=== PATIENT | male | born 1965 | race Caucasian/White ===

== ENCOUNTER 2016-06-13 12:50 | Inpatient (IN) | payer SELFPAY ==
[~2016-06-13] VITALS: Ht 182.9 cm; Wt 65.9 kg
[2016-06-13] VITALS (11 sets, daily range): BP systolic 109–142; BP diastolic 68–81
--- NOTE | 2016-06-13 13:22 | ED.ADGEN ---
Adult General Chief Complaint Chief Complaint: WEAKNESS/GENERALIZED HPI HPI Patient is a 50 year old man, history of Marfan syndrome, who presents to the emergency department with a complaint of generalized malaise for the past several weeks, with headaches, mild confusion, a roughly 20 pound weight loss. Patient denies any chest pain or shortness of breath, any nausea or vomiting, any focal weakness in this or tingling, is complaining of occasional feels a mild confusion, decreased appetite, and of a frontal headache. No injuries, no neck pain, no medication changes or exposures. Denies any fevers. Patient has a mitral valve replacement, and takes Coumadin. Patient with onset of hiccups, and nausea in the ED, which she states is just developed. No diarrhea, no urinary complaints. Denies any drugs, alcohol or cigarettes. No travel or surgery. Review of Systems Review of Systems Constitutional: Denies fever or chills. [] Generalized malaise 2 weeks. Weight loss. Eyes: Denies change in visual acuity. [] HENT: Denies nasal congestion or sore throat. [] Respiratory: Denies cough or shortness of breath. [] Cardiovascular: Denies chest pain or edema. [] GI: Denies abdominal pain, nausea, vomiting, bloody stools or diarrhea. [] : Denies dysuria. [] Musculoskeletal: Denies back pain or joint pain. [] Integument: Denies rash. [] Neurologic: Denies focal weakness or sensory changes. Headache. No injury. Endocrine: Denies polyuria or polydipsia. [] Lymphatic: Denies swollen glands. [] Psychiatric: Denies depression or anxiety. [] Current Medications Current Medications Current Medications Medications (Trade) Dose Ordered Sig/Denny Start Time Stop Time Status Last Admin Dose Admin Sodium Chloride (Iv Sodium Chloride 0.9% 1000ml Bag) 1,000 ml @ 100 mls/hr 1X ONCE 06/13/16 13:45 06/13/16 23:44 06/13/16 13:45 100 MLS/HR Allergies Allergies Allergies Coded Allergies Type Severity Reaction Last Updated Verified No Known Drug Allergies 06/13/16 No Physical Exam Physical Exam Constitutional: Well developed, thin, no acute distress, ill in appearance. [] HENT: Normocephalic, atraumatic, bilateral external ears normal, oropharynx moist, no oral exudates, nose normal. [] Eyes: PERRLA, EOMI, conjunctiva normal, no discharge. [] Neck: Normal range of motion, no tenderness, supple, no stridor. [] Cardiovascular:Heart rate regular rhythm, no murmur [] Lungs & Thorax: Diminished breath sounds throughout, no wheezing, rhonchi or rales appreciated, no external signs of injury or lesions identified.] Abdomen: Bowel sounds normal, soft, no tenderness, no rebound, rigidity, no guarding, no masses, no pulsatile masses. [] Skin: Warm, dry, no erythema, no rash. [] Back: No tenderness, no CVA tenderness. [] Extremities: No tenderness, no cyanosis, no clubbing, ROM intact, no edema. Negative Homans sign. [] Neurologic: Alert and oriented X 3, normal motor function, normal sensory function, no focal deficits noted. [] Psychologic: Affect normal, judgement normal, mood normal. [] Current Patient Data Vital Signs Vital Signs Date Time Temp Pulse Resp B/P Pulse Ox O2 Delivery O2 Flow Rate FiO2 06/13/16 13:10 98.2 67 18 137/85 97 Room Air 98.2 Lab Values Laboratory Tests Test 06/13/16 13:30 06/13/16 13:45 06/13/16 14:05 White Blood Count 8.1x10^3/uL (4.0-11.0) Red Blood Count 5.22x10^6/uL (4.30-5.70) Hemoglobin 15.9g/dL (13.0-17.5) Hematocrit 46.8% (39.0-53.0) Mean Corpuscular Volume 90fL (79-100) Mean Corpuscular Hemoglobin 31pg (25-35) Mean Corpuscular Hemoglobin Concent 34g/dL (31-37) Red Cell Distribution Width 13.4% (11.5-14.5) Platelet Count 173x10^3/uL (140-400) Neutrophils (%) (Auto) 77% (31-73) H Lymphocytes (%) (Auto) 11% (24-48) L Monocytes (%) (Auto) 10% (0-9) H Eosinophils (%) (Auto) 1% (0-3) Basophils (%) (Auto) 1% (0-3) Neutrophils # (Auto) 6.3x10^3uL (1.8-7.7) Lymphocytes # (Auto) 0.9x10^3/uL (1.0-4.8) L Monocytes # (Auto) 0.8x10^3/uL (0.0-1.1) Eosinophils # (Auto) 0.1x10^3/uL (0.0-0.7) Basophils # (Auto) 0.0x10^3/uL (0.0-0.2) Prothrombin Time 41.1SEC (11.7-14.0) H Prothrombin Time INR 4.6 (0.8-1.1) *H PTT 71SEC (24-38) H Sodium Level 142mmol/L (136-145) Potassium Level 3.6mmol/L (3.5-5.1) Chloride Level 103mmol/L (98-107) Carbon Dioxide Level 34mmol/L (21-32) H Anion Gap 5 (6-14) L Blood Urea Nitrogen 24mg/dL (8-26) Creatinine 1.0mg/dL (0.7-1.3) Estimated GFR (Cockcroft-Gault) 79.1 BUN/Creatinine Ratio 24 (6-20) H Glucose Level 112mg/dL (70-99) H Lactic Acid Level 1.2mmol/L (0.4-2.0) Calcium Level 9.2mg/dL (8.5-10.1) Total Bilirubin 0.5mg/dL (0.2-1.0) Aspartate Amino Transferase (AST) 32U/L (15-37) Alanine Aminotransferase (ALT) 28U/L (16-63) Alkaline Phosphatase 58U/L (46-116) Troponin I Quantitative < 0.017ng/mL (0.000-0.055) EM-Ljk-E-Type Natriuretic Peptide 119pg/mL (0-124) Total Protein 8.1g/dL (6.4-8.2) Albumin 3.8g/dL (3.4-5.0) Albumin/Globulin Ratio 0.9 (1.0-1.7) L Influenza Type A Antigen Negative (NEGATIVE) Influenza Type B Antigen Negative (NEGATIVE) Urine Collection Type Unknown Urine Color Nicole Urine Clarity Hazy Urine pH 5.5 Urine Specific [place] >=1.030 Urine Protein Negativemg/dL (NEG-TRACE) Urine Glucose (UA) Negativemg/dL (NEG) Urine Ketones (Stick) Tracemg/dL (NEG) Urine Blood Small (NEG) Urine Nitrite Negative (NEG) Urine Bilirubin Small (NEG) Urine Urobilinogen Dipstick 0.2mg/dL (0.2 mg/dL) Urine Leukocyte Esterase Trace (NEG) Urine RBC Occ/HPF (0-2) Urine WBC 1-4/HPF (0-4) Urine Bacteria 0/HPF (0-FEW) Urine Mucus Marked/LPF Urine Sperm Present/HPF Urine Opiates Screen Neg (NEG) Urine Methadone Screen Neg (NEG) Urine Barbiturates Neg (NEG) Urine Phencyclidine Screen Neg (NEG) Urine Amphetamine/Methamphetamine Neg (NEG) Urine Benzodiazepines Screen Neg (NEG) Urine Cocaine Screen Neg (NEG) Urine Cannabinoids Screen Neg (NEG) Urine Ethyl Alcohol Neg (NEG) Laboratory Tests 06/13/16 13:30 Laboratory Tests 06/13/16 13:30 EKG EKG EC: Sinus rhythm, heart rate 65 beats/minute, upright axis, QTC of 423, WV of 140, QRS of 82, no ST elevations or depressions, mild baseline artifact noted. As interpreted by me. Radiology/Procedures Radiology/Procedures []CENTER [address] [place] [id number] IMAGING REPORT Signed PATIENT: ARPAN CAMPOVERDE ACCOUNT: [id number] : 1965 LOCATION: ER AGE: 50 SEX: M EXAM STATUS: REG ER ORD. PHYSICIAN: ROBE MONTES DO REASON: nausea PROCEDURE: ABDOMEN SUPINE & UPRIGHT Supine and upright abdomen. History: Nausea Supine and upright views were taken of the abdomen. There is no free air on the upright view. There are no abnormal air-fluid levels. Lung bases are clear. There are densities suggesting tablets in the colon. There are no abnormal calcifications. Osseous structures are unremarkable. Impression: 1. No bowel obstruction or acute finding in the abdomen. DICTATED and SIGNED BY: KAT RATLIFF MD DATE: 06/13/16 1411 CC: NEREIDA RUST; ROBE MONTES DO ~ Impressions: [facility] [address] [place] [address] IMAGING REPORT Signed PATIENT: ARPAN CAMPOVERDE ACCOUNT: [id number] : 1965 LOCATION: ER AGE: 50 SEX: M EXAM STATUS: REG ER ORD. PHYSICIAN: ROBE MONTES DO REASON: confusion/REED PROCEDURE: HEAD WO CONTRAST One or more of the following individualized dose reduction techniques were utilized for this examination: 1. Automated exposure control 2. Adjustment of the mA and/or kV according to patient size 3. Use of iterative reconstruction technique CT brain without contrast History: Confusion, headaches CT scan of the brain was done without contrast. There is no old study for comparison. There is a acute subdural hematoma on the right side seen in the frontal region. There is an acute on chronic subdural hematoma on the left in the frontoparietal region. There is mass effect without shift of the midline. Sinuses are clear. Impression: 1. Bilateral subdural hematomas Emergency room physician was called and notified of the findings at 2:[address] [id number] IMAGING REPORT Signed PATIENT: ARPAN CAMPOVERDE ACCOUNT: [id number] : 1965 LOCATION: ER AGE: 50 SEX: M EXAM STATUS: REG ER ORD. PHYSICIAN: ROBE MONTES DO REASON: Weakness PROCEDURE: PORTABLE CHEST 1V Portable AP chest. History: Weakness AP view was taken of the chest. Lungs are clear. Heart is normal in size with evidence of previous valve surgery. There is no effusion. Impression: 1. No acute infiltrates. DICTATED and SIGNED BY: KAT RATLIFF MD DATE: 06/13/16 1352 CC: NEREIDA RUST; ROBE MONTES DO ~ DICTATED and SIGNED BY: KAT RATLIFF MD DATE: 06/13/16 1431 CC: NEREIDA RUST; ROBE MONTES DO ~ Course & Med Decision Making Course & Med Decision Making Pertinent Labs and Imaging studies reviewed. (See chart for details) Patient's CT of the head reveals bilateral subdural hematomas. Patient is on Coumadin for his mitral valve replacement, INR is supratherapeutic at 4.6. I did speak with Dr. Emerson neurosurgery, there is no surgical intervention at this time, he recommends the patient be admitted to the ICU for close monitoring and blood pressure control. Patient's blood pressure at this time is 135/87, we'll aim for systolic less than 150, at this time no intervention is required. We'll reverse the patient using FFP and 10 units of vitamin K orally. I spoke with Dr. Mcmanus cardiology, who will follow the patient regarding the cardiac concerns, no other recommendations aside from above at this time. I discussed with patient and family at bedside the CT findings, and the, continuation regarding the patient's anticoagulation status and his heart valve replacement. Additional information will be requested from and [facility]'s. Patient and family at bedside are in agreement voiced understanding with the serious nature of the condition, and the plan for admission to the the ICU and monitoring and management with consultants as stated. Findings as above discussed with Dr. Colby of internal medicine, patient accepted to her service as a full avelar the ICU with plan as above. Patient remained stable and comfortable during his ED course, awaiting transfer to the ICU. Dragon Disclaimer Dragon Disclaimer This electronic medical record was generated, in whole or in part, using a voice recognition dictation system. Critical Care Time Critical care time was 20 minutes exclusive of procedures. Departure Impression: Primary Impression: Subdural hematoma Additional Impression: Supratherapeutic INR Disposition: ADMITTED INPATIENT Condition: STABLE Problem Qualifiers ROBE MONTES DO Jun 13, 2016 13:22
[2016-06-13] MEDS ORDERED: IV NORMAL SALINE 1000ML BAG 1,000 ML IV ONE (13:45)
[2016-06-13 13:47] LABS: BASO % 1 % (0-3); EOS % 1 % (0-3); HEMATOCRIT 46.8 % (39.0-53.0); HEMOGLOBIN 15.9 g/dL (13.0-17.5); LYMPH # 0.9 x10^3/uL (1.0-4.8); LYMPH % 11 % (24-48); MEAN CORPUSCULAR HEMOGLOBIN 31 pg (25-35); MEAN CORPUSCULAR HGB CONC 34 g/dL (31-37); MEAN CORPUSCULAR VOLUME 90 fL (79-100); MONO % 10 % (0-9); NEUT % 77 % (31-73); PLATELET COUNT 173 x10^3/uL (140-400); RED BLOOD COUNT 5.22 x10^6/uL (4.30-5.70); RED CELL DISTRIBUTION WIDTH 13.4 % (11.5-14.5); WHITE BLOOD COUNT 8.1 x10^3/uL (4.0-11.0)
[2016-06-13 13:55] LABS: CALCIUM 9.2 mg/dL (8.5-10.1); GFR 79.1; POTASSIUM 3.6 mmol/L (3.5-5.1)
--- NOTE | 2016-06-13 13:55 | RAD ---
Portable AP chest. History: Weakness AP view was taken of the chest. Lungs are clear. Heart is normal in size with evidence of previous valve surgery. There is no effusion. Impression: 1. No acute infiltrates.
[2016-06-13 13:58] LABS: PROTHROMBIN TIME PATIENT 41.1 SEC (11.7-14.0)
[2016-06-13 14:02] LABS: INR 4.6 (0.8-1.1)
[2016-06-13 14:10] LABS: ALBUMIN 3.8 g/dL (3.4-5.0); ALBUMIN/GLOBULIN RATIO 0.9 (1.0-1.7); TOTAL BILIRUBIN 0.5 mg/dL (0.2-1.0); TOTAL PROTEIN 8.1 g/dL (6.4-8.2)
[2016-06-13 14:19] LABS: BILIRUBIN,URINE SMALL (NEG); GLUCOSE,URINE NEGATIVE (NEG); NITRITE,URINE NEGATIVE (NEG); PH,URINE 5.5; PROTEIN,URINE NEGATIVE (NEG-TRACE); UROBILINOGEN,URINE 0.2 mg/dL (0.2 mg/dL)
--- NOTE | 2016-06-13 14:19 | RAD ---
Supine and upright abdomen. History: Nausea Supine and upright views were taken of the abdomen. There is no free air on the upright view. There are no abnormal air-fluid levels. Lung bases are clear. There are densities suggesting tablets in the colon. There are no abnormal calcifications. Osseous structures are unremarkable. Impression: 1. No bowel obstruction or acute finding in the abdomen.
[2016-06-13 14:21] LABS: OBC FLU VALID
[2016-06-13 14:27] LABS: BACTERIA,URINE 0 /HPF (0-FEW); RBC,URINE OCC /HPF (0-2); SPERM,URINE PRESENT /HPF
[2016-06-13 14:30] LABS: BARBITURATES NEG (NEG); BENZODIAZEPINES NEG (NEG); CANNABINOIDS NEG (NEG); COCAINE NEG (NEG); METHADONE NEG (NEG); OPIATES NEG (NEG); PHENCYCLIDINE NEG (NEG)
[2016-06-13 14:33] LABS: ETHANOL, URINE NEG (NEG)
--- NOTE | 2016-06-13 14:36 | RAD ---
One or more of the following individualized dose reduction techniques were utilized for this examination: 1. Automated exposure control 2. Adjustment of the mA and/or kV according to patient size 3. Use of iterative reconstruction technique CT brain without contrast History: Confusion, headaches CT scan of the brain was done without contrast. There is no old study for comparison. There is a acute subdural hematoma on the right side seen in the frontal region. There is an acute on chronic subdural hematoma on the left in the frontoparietal region. There is mass effect without shift of the midline. Sinuses are clear. Impression: 1. Bilateral subdural hematomas Emergency room physician was called and notified of the findings at 2:33 PM
[2016-06-13] MEDS ORDERED: PHYTONADIONE 5 MG TABLET PO ONE (15:00)
--- NOTE | 2016-06-13 15:16 | EKG ---
[facility] [address] [place] [address] Test Date: 2016-06-13 Test Time: 13:02:27 Pat Name: ARPAN CAMPOVERDE Department: Room: Gender: M Distribution Associate: : 1965 Requested By: ROBE MONTES Order Number: [id number] Reading MD: Maria A Valente Measurements Intervals [place] Rate: 65 P: 45 [place]: 140 QRS: 1 QRSD: 82 T: 68 QT: 402 QTc: 423 Interpretive Statements SINUS RHYTHM NORMAL EKG RI6.01 Unconfirmed report No previous ECG available for comparison Electronically Signed On 06-17-2016 23:09:46 HISTOLOGIC AIDE by Maria A Valente
[2016-06-13] MEDS ORDERED: ONDANSETRON PF 4 MG/2 ML VIAL. IV PRN (16:15)
[2016-06-13] MEDS ORDERED: METO25TA9 PO (16:42)
[2016-06-13] MEDS ORDERED: WARF5TAB PO (16:42)
[2016-06-13] MEDS: OXYCODONE/APAP 5/325 TABLET. PO PRN ×2 (18:09→23:49)
[2016-06-13] MEDS ORDERED: MORPHINE SULFATE 2 MG/ML DISP.SYRIN. IV ONE (18:30)
[2016-06-13] MEDS ORDERED: LEVETIRACETAM 500 MG in IV NORMAL SALINE 100ML 100 ML IV PRN (19:45)
--- NOTE | 2016-06-13 20:42 | HP ---
ADMIT DATE: 06/13/2016 CHIEF COMPLAINT: Subdural hematoma. HISTORY OF PRESENT ILLNESS: The patient is a 50-year-old gentleman with Marfan syndrome, status post AVR as well as MVR and mesh placement in the ascending aorta who presented to the hospital with general malaise, worsening headaches and mild confusion. He was evaluated in the emergency room and CT reveals subdural hematoma in the right frontal region. This was considered acute. A second [id number] subdural hematoma on the left frontoparietal region was also noted. Mass effect without shift of the midline. Of note, patient is on Coumadin for his valve replacements. INR was therapeutic at 2.8. PAST MEDICAL HISTORY: Marfan's status post AVR in [address] 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 FAMILY HISTORY: Brother does not have Marfan's, but positive for diabetes. SOCIAL HISTORY: He currently lives with his brother, not working. No toxic habits. ALLERGIES: No known drug allergies. MEDICATIONS: MAR reconciled with home medications. REVIEW OF SYSTEMS: The patient is quite confused with significant memory deficits as well. He complains of headache, bitemporal. Denies any other focal symptoms in rest of organ system review. PHYSICAL EXAMINATION: VITAL SIGNS: Show a blood pressure of 135/76, heart rate of 74, respiratory rate at 18. He is afebrile, satting 99% on room air. GENERAL: This is a malnourished 50-year-old gentleman, awake, alert, confused, in no acute distress. HEENT: Shows clouded eye on the left; right with oblong pupil status post surgery. NECK: Supple without any lymphadenopathy. LUNGS: Fairly clear. HEART: Regular rate and rhythm. Murmurs not appreciated. ABDOMEN: Positive bowel sounds, soft, nontender. EXTREMITIES: Show no edema. LABORATORY DATA: CBC from today shows a WBC of 8.1, hemoglobin 15.9, platelets of 173. Chemistries with a BUN and creatinine of 24 and 1. Electrolytes within normal limits. LFTs normal. Initial troponin negative. Lactate at 1.2, albumin 3.8. Tox screen is negative. Coags with an INR of 4.6, PTT of 71. Serology for flu is negative. RADIOGRAPHIC STUDIES: Chest x-ray is clear. CT of head: See above. ASSESSMENT AND PLAN: The patient is a 50-year-old Marfan's patient who presents with subdural hematomas without trauma. He relates that he had cold symptoms for the past week fairly severely, has been coughing but has had no head injuries. His Coumadin is elevated at this time. With bilateral subdural hematomas, we will hold Coumadin, reverse with FFP as well as vitamin K. Cardiology will be consulted for management of valve and potential anticoagulation down the road. Neurosurgery has been consulted by ER as well. Dr. Emerson will follow. Repeat CT of the brain is ordered for AM. The patient has borderline hypertension, managed on beta-blockers. We will continue for the time being. Neuro checks will be instituted q. 4 hours. JOSSELYN MORRIS MD DR: UR/nts JOB#: [id number] / [id number] NEREIDA Giles
[2016-06-13 23:26] LABS: INR 2.5 (0.8-1.1); PROTHROMBIN TIME PATIENT 25.2 SEC (11.7-14.0)
[2016-06-14] VITALS (24 sets, daily range): BP systolic 95–142; BP diastolic 49–90
[2016-06-14] MEDS: IV NORMAL SALINE 1000ML BAG 1,000 ML IV SCH ×3 (02:10→12:10)
[2016-06-14] MEDS: OXYCODONE/APAP 5/325 TABLET. PO PRN (08:32)
[2016-06-14] MEDS: METOPROLOL SUCC 24HR ER 25 MG TAB.ER.24H. PO SCH (08:32)
[2016-06-14 08:47] LABS: BASO # 0.1 x10^3/uL (0.0-0.2); BASO % 1 % (0-3); EOS % 2 % (0-3); HEMATOCRIT 40.2 % (39.0-53.0); HEMOGLOBIN 13.4 g/dL (13.0-17.5); LYMPH # 0.8 x10^3/uL (1.0-4.8); LYMPH % 11 % (24-48); MEAN CORPUSCULAR HEMOGLOBIN 30 pg (25-35); MEAN CORPUSCULAR HGB CONC 33 g/dL (31-37); MEAN CORPUSCULAR VOLUME 90 fL (79-100); MONO % 9 % (0-9); NEUT % 76 % (31-73); PLATELET COUNT 157 x10^3/uL (140-400); RED BLOOD COUNT 4.44 x10^6/uL (4.30-5.70); RED CELL DISTRIBUTION WIDTH 13.6 % (11.5-14.5); WHITE BLOOD COUNT 7.4 x10^3/uL (4.0-11.0)
[2016-06-14 08:55] LABS: INR 2.2 (0.8-1.1); PROTHROMBIN TIME PATIENT 22.9 SEC (11.7-14.0)
[2016-06-14 08:58] LABS: CALCIUM 8.3 mg/dL (8.5-10.1); CREATININE 0.8 mg/dL (0.7-1.3); GFR 102.3; POTASSIUM 3.6 mmol/L (3.5-5.1)
--- NOTE | 2016-06-14 10:24 | RAD ---
One or more of the following individualized dose reduction techniques were utilized for this examination: 1. Automated exposure control 2. Adjustment of the mA and/or kV according to patient size 3. Use of iterative reconstruction technique CT brain without contrast. History: Subdural hematomas, follow-up CT scan of brain was done without contrast. Comparison is made with a study from one day ago. There are persistent bilateral subdural hematomas. There has been no significant change. There is no shift of the midline. There is no parenchymal hemorrhage noted. Sinuses are clear. Impression: 1. Bilateral subdural hematomas without change.
[2016-06-14] MEDS: POTASSIUM CL 20MEQ-0.45% NACL 1,000 ML IV SCH (13:39)
--- NOTE | 2016-06-14 13:49 | PDOC2 ---
NEUROLOGY CONSULT Date of Admission Date of Admission DATE: 06/14/16 TIME: 13:32 Reason for Consult Reason for Consult: IMPRESSION: Bilateral SDH Headache Metabolic encephalopathy. Confusion Marfan's syndrome. Left eye vision loss. RECOMMENDATIONS/PLAN: Keppra if has seizures. Avoid anticoagulant and antiplatelet agent at the present time. BP control. Repeat HCT w/o contrast if condition worse. HISTORY OF THE PRESENT ILLNESS: 50-y-old male patient with Hx of Marfan syndrome s/p aortic valve mesh placement on Coumadin. He went ER with complaints of MS changes, headaches and weakness. His HCT showed bilateral frontal SDH and his INR was 4.6 and PT was 41.1. He was therefore admitted into ICU. PAST MEDICAL HISTORY: Please see above. PAST SURGERY HISTORY: Aortic valve mesh placement. ALLERGY: NKDA MEDICATIONS: Refer to [facility] FAMILY HISTORY: DM SOCIAL HISTORY: Denies smoking, drinking, and illicit drug use. REVIEW OF SYSTEMS: Constitutional: No malnutrition, weight loss, cachexia. Head: No recent traumatic brain or head injury. Skin: No edema, or rash. Ear: No infection, tinnitus. Eyes: No vision loss or color blindness. Nose: No bleeding or purulent discharges. Hearing: No hearing decrease. Neck: No injury. Cardiac: s/p aortic valve mesh placement. Pulmonary: No COPD. GI: No GI ulcer, GI bleeding. Urinary/genital: No dysuria, hematuria, incontinence. Endocrinologic: No cousin face, craniofacial dysmorphism, polydactyly, goiter Skeletomuscular: No muscular atrophy. Neurological: see HP. Psychiatric: Denies drug use/abuse. Otherwise, not [id number] review of systems. PHYSICAL EXAMINATION: General appearance is in subacute distress. HEENT: Normocephalic and nontraumatic. Eyes, nose, ears, and throat are unremarkable. Neck is supple. No lymphadenopathy. No bruits are heard over the carotid artery. No crepitus. Cardiovascular: S1, S2, regular rate and rhythm. Pulmonary: Clear to auscultation bilaterally. Abdomen: Bowel sounds are positive. Abdomen is soft, nontender, and nondistended. Extremities: No rash, lesions, or edema. No restriction of range of motion NEUROLOGICAL EXAMINATION: Awake. Not oriented to time, but knows place and person. Right pupil reactive to light stimuli. Left eye s/p surgery changes. EOMI. CN: no focal findings. Muscle tone: within normal. Muscle strength: 5- DTR: 2- Plantar reflex: Flexor response bilaterally Gait: not examined in bed. Sensory exam: no abnormal findings. No obvious cerebellar signs elicited. F-T-N test fine. Current Medications Current Medications Current Medications Sodium Chloride (Iv Sodium Chloride 0.9% 1000ml Bag) 1,000 ml @ 100 mls/hr 1X ONCE IV Last administered on 06/13/16 13:45; Start 06/13/16 at 13:45; Stop at 23:44; Status DC Phytonadione (Mephyton) 10 mg 1X ONCE PO Last administered on 06/13/16 15:03; Start 06/13/16 at 15:00; Stop 06/13/16 at 15:01; Status DC Ondansetron HCl 4 mg 4 mg PRN Q8HRS PRN IV NAUSEA/VOMITING; Start 06/13/16 at 16 :15; Stop 06/14/16 at 16:14 Sodium Chloride (Iv Sodium Chloride 0.9% 1000ml Bag) 1,000 ml @ 100 mls/hr Q10H IV Last administered on 06/14/16 05:49; Start 06/13/16 at 16:10; Stop at 13:20; Status DC Morphine Sulfate 2 mg 1X ONCE IV Last administered on 06/13/16 18:08; Start at 18:30; Stop 06/13/16 at 18:31; Status DC Oxycodone/ Acetaminophen (Percocet 5/325) 1 tab PRN Q4HRS PRN PO PAIN Last administered on 06/14/16 08:32; Start 06/13/16 at 18:00 Oxycodone/ Acetaminophen (Percocet 5/325) 2 tab PRN Q4HRS PRN PO PAIN; Start at 18:00 Metoprolol Succinate (Toprol Xl) 25 mg DAILY PO Last administered on 06/14/16 08:32; Start 06/14/16 at 09:00 Lorazepam 2 mg 2 mg PRN Q4HRS PRN IV ANXIETY / AGITATION; Start 06/13/16 at 19: 45 Levetiracetam 500 mg/Sodium Chloride 105 ml @ 400 mls/hr PRN Q12HRS PRN IV SEIZURES; Start 06/13/16 at 19:45 Potassium Chloride/Sodium Chloride (KCl 20 Meq-0.45% Nacl) 1,000 ml @ 100 mls/ hr Q10H IV ; Start 06/14/16 at 13:30 Active Scripts Active Reported Coumadin (Warfarin Sodium) 5 Mg Tablet 1 Tab PO DAILY Metoprolol Succinate ( Xl ) (Metoprolol Succinate) 25 Mg Tab.er.24h 25 Mg PO DAILY Allergies Allergies: Coded Allergies: No Known Drug Allergies (Unverified , 06/13/16) Vitals VITALS Vital Signs Date Time Temp Pulse Resp B/P Pulse Ox O2 Delivery O2 Flow Rate FiO2 06/14/16 13:00 70 14 122/71 98 Room Air 06/14/16 12:00 98.5 98.5 Labs Labs Laboratory Tests Test 06/13/16 13:30 06/13/16 13:45 06/13/16 14:05 06/13/16 23:00 White Blood Count 8.1x10^3/uL (4.0-11.0) Red Blood Count 5.22x10^6/uL (4.30-5.70) Hemoglobin 15.9g/dL (13.0-17.5) Hematocrit 46.8% (39.0-53.0) Mean Corpuscular Volume 90fL (79-100) Mean Corpuscular Hemoglobin 31pg (25-35) Mean Corpuscular Hemoglobin Concent 34g/dL (31-37) Red Cell Distribution Width 13.4% (11.5-14.5) Platelet Count 173x10^3/uL (140-400) Neutrophils (%) (Auto) 77% (31-73) Lymphocytes (%) (Auto) 11% (24-48) Monocytes (%) (Auto) 10% (0-9) Eosinophils (%) (Auto) 1% (0-3) Basophils (%) (Auto) 1% (0-3) Neutrophils # (Auto) 6.3x10^3uL (1.8-7.7) Lymphocytes # (Auto) 0.9x10^3/uL (1.0-4.8) Monocytes # (Auto) 0.8x10^3/uL (0.0-1.1) Eosinophils # (Auto) 0.1x10^3/uL (0.0-0.7) Basophils # (Auto) 0.0x10^3/uL (0.0-0.2) Prothrombin Time 41.1SEC (11.7-14.0) 25.2SEC (11.7-14.0) Prothromb Time International Ratio 4.6 (0.8-1.1) 2.5 (0.8-1.1) Activated Partial Thromboplast Time 71SEC (24-38) Sodium Level 142mmol/L (136-145) Potassium Level 3.6mmol/L (3.5-5.1) Chloride Level 103mmol/L (98-107) Carbon Dioxide Level 34mmol/L (21-32) Anion Gap 5 (6-14) Blood Urea Nitrogen 24mg/dL (8-26) Creatinine 1.0mg/dL (0.7-1.3) Estimated GFR (Cockcroft-Gault) 79.1 BUN/Creatinine Ratio 24 (6-20) Glucose Level 112mg/dL (70-99) Lactic Acid Level 1.2mmol/L (0.4-2.0) Calcium Level 9.2mg/dL (8.5-10.1) Total Bilirubin 0.5mg/dL (0.2-1.0) Aspartate Amino Transf (AST/SGOT) 32U/L (15-37) Alanine Aminotransferase (ALT/SGPT) 28U/L (16-63) Alkaline Phosphatase 58U/L (46-116) Troponin I Quantitative < 0.017ng/mL (0.000-0.055) [id number]-Type Natriuretic Peptide 119pg/mL (0-124) Total Protein 8.1g/dL (6.4-8.2) Albumin 3.8g/dL (3.4-5.0) Albumin/Globulin Ratio 0.9 (1.0-1.7) Influenza Type A Antigen Negative (NEGATIVE) Influenza Type B Antigen Negative (NEGATIVE) Urine Collection Type Unknown Urine Color Nicole Urine Clarity Hazy Urine pH 5.5 Urine Specific [place] >=1.030 Urine Protein Negativemg/dL (NEG-TRACE) Urine Glucose (UA) Negativemg/dL (NEG) Urine Ketones (Stick) Tracemg/dL (NEG) Urine Blood Small (NEG) Urine Nitrite Negative (NEG) Urine Bilirubin Small (NEG) Urine Urobilinogen Dipstick 0.2mg/dL (0.2 mg/dL) Urine Leukocyte Esterase Trace (NEG) Urine RBC Occ/HPF (0-2) Urine WBC 1-4/HPF (0-4) Urine Bacteria 0/HPF (0-FEW) Urine Mucus Marked/LPF Urine Sperm Present/HPF Urine Opiates Screen Neg (NEG) Urine Methadone Screen Neg (NEG) Urine Barbiturates Neg (NEG) Urine Phencyclidine Screen Neg (NEG) Urine Amphetamine/Methamphetamine Neg (NEG) Urine Benzodiazepines Screen Neg (NEG) Urine Cocaine Screen Neg (NEG) Urine Cannabinoids Screen Neg (NEG) Urine Ethyl Alcohol Neg (NEG) Test 06/14/16 08:30 White Blood Count 7.4x10^3/uL (4.0-11.0) Red Blood Count 4.44x10^6/uL (4.30-5.70) Hemoglobin 13.4g/dL (13.0-17.5) Hematocrit 40.2% (39.0-53.0) Mean Corpuscular Volume 90fL (79-100) Mean Corpuscular Hemoglobin 30pg (25-35) Mean Corpuscular Hemoglobin Concent 33g/dL (31-37) Red Cell Distribution Width 13.6% (11.5-14.5) Platelet Count 157x10^3/uL (140-400) Neutrophils (%) (Auto) 76% (31-73) Lymphocytes (%) (Auto) 11% (24-48) Monocytes (%) (Auto) 9% (0-9) Eosinophils (%) (Auto) 2% (0-3) Basophils (%) (Auto) 1% (0-3) Neutrophils # (Auto) 5.7x10^3uL (1.8-7.7) Lymphocytes # (Auto) 0.8x10^3/uL (1.0-4.8) Monocytes # (Auto) 0.7x10^3/uL (0.0-1.1) Eosinophils # (Auto) 0.2x10^3/uL (0.0-0.7) Basophils # (Auto) 0.1x10^3/uL (0.0-0.2) Prothrombin Time 22.9SEC (11.7-14.0) Prothromb Time International Ratio 2.2 (0.8-1.1) Sodium Level 143mmol/L (136-145) Potassium Level 3.6mmol/L (3.5-5.1) Chloride Level 108mmol/L (98-107) Carbon Dioxide Level 30mmol/L (21-32) Anion Gap 5 (6-14) Blood Urea Nitrogen 16mg/dL (8-26) Creatinine 0.8mg/dL (0.7-1.3) Estimated GFR (Cockcroft-Gault) 102.3 Glucose Level 95mg/dL (70-99) Calcium Level 8.3mg/dL (8.5-10.1) Laboratory Tests Test 06/13/16 13:45 06/13/16 14:05 06/13/16 23:00 06/14/16 08:30 Influenza Type A Antigen Negative (NEGATIVE) Influenza Type B Antigen Negative (NEGATIVE) Urine Collection Type Unknown Urine Color Nicole Urine Clarity Hazy Urine pH 5.5 Urine Specific [place] >=1.030 Urine Protein Negativemg/dL (NEG-TRACE) Urine Glucose (UA) Negativemg/dL (NEG) Urine Ketones (Stick) Tracemg/dL (NEG) Urine Blood Small (NEG) Urine Nitrite Negative (NEG) Urine Bilirubin Small (NEG) Urine Urobilinogen Dipstick 0.2mg/dL (0.2 mg/dL) Urine Leukocyte Esterase Trace (NEG) Urine RBC Occ/HPF (0-2) Urine WBC 1-4/HPF (0-4) Urine Bacteria 0/HPF (0-FEW) Urine Mucus Marked/LPF Urine Sperm Present/HPF Urine Opiates Screen Neg (NEG) Urine Methadone Screen Neg (NEG) Urine Barbiturates Neg (NEG) Urine Phencyclidine Screen Neg (NEG) Urine Amphetamine/Methamphetamine Neg (NEG) Urine Benzodiazepines Screen Neg (NEG) Urine Cocaine Screen Neg (NEG) Urine Cannabinoids Screen Neg (NEG) Urine Ethyl Alcohol Neg (NEG) Prothrombin Time 25.2SEC (11.7-14.0) 22.9SEC (11.7-14.0) Prothromb Time International Ratio 2.5 (0.8-1.1) 2.2 (0.8-1.1) White Blood Count 7.4x10^3/uL (4.0-11.0) Red Blood Count 4.44x10^6/uL (4.30-5.70) Hemoglobin 13.4g/dL (13.0-17.5) Hematocrit 40.2% (39.0-53.0) Mean Corpuscular Volume 90fL (79-100) Mean Corpuscular Hemoglobin 30pg (25-35) Mean Corpuscular Hemoglobin Concent 33g/dL (31-37) Red Cell Distribution Width 13.6% (11.5-14.5) Platelet Count 157x10^3/uL (140-400) Neutrophils (%) (Auto) 76% (31-73) Lymphocytes (%) (Auto) 11% (24-48) Monocytes (%) (Auto) 9% (0-9) Eosinophils (%) (Auto) 2% (0-3) Basophils (%) (Auto) 1% (0-3) Neutrophils # (Auto) 5.7x10^3uL (1.8-7.7) Lymphocytes # (Auto) 0.8x10^3/uL (1.0-4.8) Monocytes # (Auto) 0.7x10^3/uL (0.0-1.1) Eosinophils # (Auto) 0.2x10^3/uL (0.0-0.7) Basophils # (Auto) 0.1x10^3/uL (0.0-0.2) Sodium Level 143mmol/L (136-145) Potassium Level 3.6mmol/L (3.5-5.1) Chloride Level 108mmol/L (98-107) Carbon Dioxide Level 30mmol/L (21-32) Anion Gap 5 (6-14) Blood Urea Nitrogen 16mg/dL (8-26) Creatinine 0.8mg/dL (0.7-1.3) Estimated GFR (Cockcroft-Gault) 102.3 Glucose Level 95mg/dL (70-99) Calcium Level 8.3mg/dL (8.5-10.1) SHANEKA GOSS MD Jun 14, 2016 13:49
--- NOTE | 2016-06-14 16:07 | PDOC ---
PROGRESS NOTES Chief Complaint Chief Complaint - Supratherapuetic INR, resolving - Bilateral subdural hematoma - Headaches - Confusion - Marfan's syndrome with hx of valve replacements and eye surgeries - Left eye blindness - HTN History of Present Illness History of Present Illness 50 year old male examined in ICU with nurse present. Discussed case with nursing , who informed of other specialist's visits and current plan of care. Attempted to discuss with patient, who seemed drowsy and was very slow to respond. Vitals Vitals Vital Signs Date Time Temp Pulse Resp B/P Pulse Ox O2 Delivery O2 Flow Rate FiO2 06/14/16 14:00 66 14 114/61 99 Room Air 06/14/16 12:00 98.5 98.5 Physical Exam Physical Exam Eyes: Cloudy opacities, evidence of previous surgery General: Alert, Cooperative, No acute distress Heart: Regular rate, No murmurs, Other (No gallops or rubs) Lungs: Clear, Other (No wheezes or crackles) Abdomen: Normal bowel sounds, Soft, No tenderness Extremities: No clubbing, No cyanosis, No edema Skin: No rashes, No breakdown, No significant lesion Labs LABS Laboratory Tests Test 06/13/16 23:00 06/14/16 08:30 Prothrombin Time 25.2SEC (11.7-14.0) 22.9SEC (11.7-14.0) Prothromb Time International Ratio 2.5 (0.8-1.1) 2.2 (0.8-1.1) White Blood Count 7.4x10^3/uL (4.0-11.0) Red Blood Count 4.44x10^6/uL (4.30-5.70) Hemoglobin 13.4g/dL (13.0-17.5) Hematocrit 40.2% (39.0-53.0) Mean Corpuscular Volume 90fL (79-100) Mean Corpuscular Hemoglobin 30pg (25-35) Mean Corpuscular Hemoglobin Concent 33g/dL (31-37) Red Cell Distribution Width 13.6% (11.5-14.5) Platelet Count 157x10^3/uL (140-400) Neutrophils (%) (Auto) 76% (31-73) Lymphocytes (%) (Auto) 11% (24-48) Monocytes (%) (Auto) 9% (0-9) Eosinophils (%) (Auto) 2% (0-3) Basophils (%) (Auto) 1% (0-3) Neutrophils # (Auto) 5.7x10^3uL (1.8-7.7) Lymphocytes # (Auto) 0.8x10^3/uL (1.0-4.8) Monocytes # (Auto) 0.7x10^3/uL (0.0-1.1) Eosinophils # (Auto) 0.2x10^3/uL (0.0-0.7) Basophils # (Auto) 0.1x10^3/uL (0.0-0.2) Sodium Level 143mmol/L (136-145) Potassium Level 3.6mmol/L (3.5-5.1) Chloride Level 108mmol/L (98-107) Carbon Dioxide Level 30mmol/L (21-32) Anion Gap 5 (6-14) Blood Urea Nitrogen 16mg/dL (8-26) Creatinine 0.8mg/dL (0.7-1.3) Estimated GFR (Cockcroft-Gault) 102.3 Glucose Level 95mg/dL (70-99) Calcium Level 8.3mg/dL (8.5-10.1) Review of Systems Review of Systems Headache Denies visual changes Denies chest pain or SOB Assessment and Plan Assessmemt and Plan Assessment: - Supratherapuetic INR, resolving - Bilateral subdural hematoma - Headaches - Confusion - Marfan's syndrome with hx of valve replacements and eye surgeries - Left eye blindness - HTN Plan: - INR of 4.6 before FFP and Vit K. Today is 2.2. Ordered Coumadin dosed per pharmacy. Continue close monitoring - Await surgery input regarding subdural hematomas - Await further subspecialty input - Continue current medical management - Recheck labs. Monitor and trend INR closely - PT/OT when tolerable - Appreciate subspecialty input Problems: Comment Review of Relevant I have reviewed the following items jordy (where applicable) has been applied. Labs Laboratory Tests Test 06/13/16 13:30 06/13/16 13:45 06/13/16 14:05 06/13/16 23:00 White Blood Count 8.1x10^3/uL (4.0-11.0) Red Blood Count 5.22x10^6/uL (4.30-5.70) Hemoglobin 15.9g/dL (13.0-17.5) Hematocrit 46.8% (39.0-53.0) Mean Corpuscular Volume 90fL (79-100) Mean Corpuscular Hemoglobin 31pg (25-35) Mean Corpuscular Hemoglobin Concent 34g/dL (31-37) Red Cell Distribution Width 13.4% (11.5-14.5) Platelet Count 173x10^3/uL (140-400) Neutrophils (%) (Auto) 77% (31-73) Lymphocytes (%) (Auto) 11% (24-48) Monocytes (%) (Auto) 10% (0-9) Eosinophils (%) (Auto) 1% (0-3) Basophils (%) (Auto) 1% (0-3) Neutrophils # (Auto) 6.3x10^3uL (1.8-7.7) Lymphocytes # (Auto) 0.9x10^3/uL (1.0-4.8) Monocytes # (Auto) 0.8x10^3/uL (0.0-1.1) Eosinophils # (Auto) 0.1x10^3/uL (0.0-0.7) Basophils # (Auto) 0.0x10^3/uL (0.0-0.2) Prothrombin Time 41.1SEC (11.7-14.0) 25.2SEC (11.7-14.0) Prothromb Time International Ratio 4.6 (0.8-1.1) 2.5 (0.8-1.1) Activated Partial Thromboplast Time 71SEC (24-38) Sodium Level 142mmol/L (136-145) Potassium Level 3.6mmol/L (3.5-5.1) Chloride Level 103mmol/L (98-107) Carbon Dioxide Level 34mmol/L (21-32) Anion Gap 5 (6-14) Blood Urea Nitrogen 24mg/dL (8-26) Creatinine 1.0mg/dL (0.7-1.3) Estimated GFR (Cockcroft-Gault) 79.1 BUN/Creatinine Ratio 24 (6-20) Glucose Level 112mg/dL (70-99) Lactic Acid Level 1.2mmol/L (0.4-2.0) Calcium Level 9.2mg/dL (8.5-10.1) Total Bilirubin 0.5mg/dL (0.2-1.0) Aspartate Amino Transf (AST/SGOT) 32U/L (15-37) Alanine Aminotransferase (ALT/SGPT) 28U/L (16-63) Alkaline Phosphatase 58U/L (46-116) Troponin I Quantitative < 0.017ng/mL (0.000-0.055) DS-Swu-C-Type Natriuretic Peptide 119pg/mL (0-124) Total Protein 8.1g/dL (6.4-8.2) Albumin 3.8g/dL (3.4-5.0) Albumin/Globulin Ratio 0.9 (1.0-1.7) Influenza Type A Antigen Negative (NEGATIVE) Influenza Type B Antigen Negative (NEGATIVE) Urine Collection Type Unknown Urine Color Nicole Urine Clarity Hazy Urine pH 5.5 Urine Specific [place] >=1.030 Urine Protein Negativemg/dL (NEG-TRACE) Urine Glucose (UA) Negativemg/dL (NEG) Urine Ketones (Stick) Tracemg/dL (NEG) Urine Blood Small (NEG) Urine Nitrite Negative (NEG) Urine Bilirubin Small (NEG) Urine Urobilinogen Dipstick 0.2mg/dL (0.2 mg/dL) Urine Leukocyte Esterase Trace (NEG) Urine RBC Occ/HPF (0-2) Urine WBC 1-4/HPF (0-4) Urine Bacteria 0/HPF (0-FEW) Urine Mucus Marked/LPF Urine Sperm Present/HPF Urine Opiates Screen Neg (NEG) Urine Methadone Screen Neg (NEG) Urine Barbiturates Neg (NEG) Urine Phencyclidine Screen Neg (NEG) Urine Amphetamine/Methamphetamine Neg (NEG) Urine Benzodiazepines Screen Neg (NEG) Urine Cocaine Screen Neg (NEG) Urine Cannabinoids Screen Neg (NEG) Urine Ethyl Alcohol Neg (NEG) Test 06/14/16 08:30 White Blood Count 7.4x10^3/uL (4.0-11.0) Red Blood Count 4.44x10^6/uL (4.30-5.70) Hemoglobin 13.4g/dL (13.0-17.5) Hematocrit 40.2% (39.0-53.0) Mean Corpuscular Volume 90fL (79-100) Mean Corpuscular Hemoglobin 30pg (25-35) Mean Corpuscular Hemoglobin Concent 33g/dL (31-37) Red Cell Distribution Width 13.6% (11.5-14.5) Platelet Count 157x10^3/uL (140-400) Neutrophils (%) (Auto) 76% (31-73) Lymphocytes (%) (Auto) 11% (24-48) Monocytes (%) (Auto) 9% (0-9) Eosinophils (%) (Auto) 2% (0-3) Basophils (%) (Auto) 1% (0-3) Neutrophils # (Auto) 5.7x10^3uL (1.8-7.7) Lymphocytes # (Auto) 0.8x10^3/uL (1.0-4.8) Monocytes # (Auto) 0.7x10^3/uL (0.0-1.1) Eosinophils # (Auto) 0.2x10^3/uL (0.0-0.7) Basophils # (Auto) 0.1x10^3/uL (0.0-0.2) Prothrombin Time 22.9SEC (11.7-14.0) Prothromb Time International Ratio 2.2 (0.8-1.1) Sodium Level 143mmol/L (136-145) Potassium Level 3.6mmol/L (3.5-5.1) Chloride Level 108mmol/L (98-107) Carbon Dioxide Level 30mmol/L (21-32) Anion Gap 5 (6-14) Blood Urea Nitrogen 16mg/dL (8-26) Creatinine 0.8mg/dL (0.7-1.3) Estimated GFR (Cockcroft-Gault) 102.3 Glucose Level 95mg/dL (70-99) Calcium Level 8.3mg/dL (8.5-10.1) Laboratory Tests Test 06/13/16 23:00 06/14/16 08:30 Prothrombin Time 25.2SEC (11.7-14.0) 22.9SEC (11.7-14.0) Prothromb Time International Ratio 2.5 (0.8-1.1) 2.2 (0.8-1.1) White Blood Count 7.4x10^3/uL (4.0-11.0) Red Blood Count 4.44x10^6/uL (4.30-5.70) Hemoglobin 13.4g/dL (13.0-17.5) Hematocrit 40.2% (39.0-53.0) Mean Corpuscular Volume 90fL (79-100) Mean Corpuscular Hemoglobin 30pg (25-35) Mean Corpuscular Hemoglobin Concent 33g/dL (31-37) Red Cell Distribution Width 13.6% (11.5-14.5) Platelet Count 157x10^3/uL (140-400) Neutrophils (%) (Auto) 76% (31-73) Lymphocytes (%) (Auto) 11% (24-48) Monocytes (%) (Auto) 9% (0-9) Eosinophils (%) (Auto) 2% (0-3) Basophils (%) (Auto) 1% (0-3) Neutrophils # (Auto) 5.7x10^3uL (1.8-7.7) Lymphocytes # (Auto) 0.8x10^3/uL (1.0-4.8) Monocytes # (Auto) 0.7x10^3/uL (0.0-1.1) Eosinophils # (Auto) 0.2x10^3/uL (0.0-0.7) Basophils # (Auto) 0.1x10^3/uL (0.0-0.2) Sodium Level 143mmol/L (136-145) Potassium Level 3.6mmol/L (3.5-5.1) Chloride Level 108mmol/L (98-107) Carbon Dioxide Level 30mmol/L (21-32) Anion Gap 5 (6-14) Blood Urea Nitrogen 16mg/dL (8-26) Creatinine 0.8mg/dL (0.7-1.3) Estimated GFR (Cockcroft-Gault) 102.3 Glucose Level 95mg/dL (70-99) Calcium Level 8.3mg/dL (8.5-10.1) Medications Current Medications Sodium Chloride (Iv Sodium Chloride 0.9% 1000ml Bag) 1,000 ml @ 100 mls/hr 1X ONCE IV Last administered on 06/13/16t 13:45; Start 1/7/17 at 13:45; Stop at 23:44; Status DC Phytonadione (Mephyton) 10 mg 1X ONCE PO Last administered on 06/13/16 15:03; Start 06/13/16 at 15:00; Stop 06/13/16 at 15:01; Status DC Ondansetron HCl 4 mg 4 mg PRN Q8HRS PRN IV NAUSEA/VOMITING; Start 06/13/16 at 16 :15; Stop 06/14/16 at 16:14 Sodium Chloride (Iv Sodium Chloride 0.9% 1000ml Bag) 1,000 ml @ 100 mls/hr Q10H IV Last administered on 06/14/16 05:49; Start 06/13/16 at 16:10; Stop at 13:20; Status DC Morphine Sulfate 2 mg 1X ONCE IV Last administered on 06/13/16 18:08; Start at 18:30; Stop 06/13/16 at 18:31; Status DC Oxycodone/ Acetaminophen (Percocet 5/325) 1 tab PRN Q4HRS PRN PO PAIN Last administered on 06/14/16 08:32; Start 06/13/16 at 18:00 Oxycodone/ Acetaminophen (Percocet 5/325) 2 tab PRN Q4HRS PRN PO PAIN; Start at 18:00 Metoprolol Succinate (Toprol Xl) 25 mg DAILY PO Last administered on 06/14/16 08:32; Start 06/14/16 at 09:00 Lorazepam 2 mg 2 mg PRN Q4HRS PRN IV ANXIETY / AGITATION; Start 06/13/16 at 19: 45 Levetiracetam 500 mg/Sodium Chloride 105 ml @ 400 mls/hr PRN Q12HRS PRN IV SEIZURES; Start 06/13/16 at 19:45 Potassium Chloride/Sodium Chloride (KCl 20 Meq-0.45% Nacl) 1,000 ml @ 100 mls/ hr Q10H IV Last administered on 06/14/16 13:39; Start 06/14/16 at 13:30 Active Scripts Active Reported Coumadin (Warfarin Sodium) 5 Mg Tablet 1 Tab PO DAILY Metoprolol Succinate ( Xl ) (Metoprolol Succinate) 25 Mg Tab.er.24h 25 Mg PO DAILY Vitals/I & O Vital Sign - Last 24 Hours 06/13/16 06/13/16 06/13/16 06/13/16 16:00 17:03 17:47 18:00 Temp 97.9 98.0 98.6 97.9 98.0 98.6 Pulse 73 73 74 70 Resp 20 18 18 16 B/P 118/81 135/76 135/76 142/76 Pulse Ox 99 99 100 O2 Delivery Room Air Room Air Room Air 06/13/16 06/13/16 06/13/16 06/13/16 18:02 18:08 18:09 19:00 Temp 98.6 98.6 Pulse 78 72 Resp 18 18 16 B/P 142/76 142/76 Pulse Ox 99 99 99 O2 Delivery Room Air Room Air Room Air 06/13/16 06/13/16 06/13/16 06/13/16 20:00 20:32 21:00 22:00 Temp 98.8 98.8 Pulse 79 68 69 Resp 16 18 B/P 109/71 134/74 124/73 Pulse Ox 99 100 98 O2 Delivery Room Air Room Air Room Air Room Air 06/13/16 06/13/16 06/13/16 06/13/16 23:00 23:49 23:59 23:59 Temp 98.1 98.1 Pulse 70 64 Resp 16 18 16 B/P 127/75 128/68 Pulse Ox 98 98 99 O2 Delivery Room Air Room Air Room Air Room Air 06/14/16 06/14/16 06/14/16 06/14/16 00:49 01:00 02:00 03:00 Pulse 68 63 62 Resp 16 16 16 B/P 113/66 105/69 116/71 Pulse Ox 100 98 99 O2 Delivery Room Air Room Air Room Air Room Air 06/14/16 06/14/16 06/14/16 06/14/16 04:00 04:00 05:00 06:00 Temp 97.9 97.9 Pulse 68 63 63 Resp 18 16 16 B/P 110/68 119/71 131/75 Pulse Ox 98 99 99 O2 Delivery Room Air Room Air Room Air Room Air 06/14/16 06/14/16 06/14/16 06/14/16 07:00 07:29 08:00 08:32 Temp 98.6 98.6 Pulse 61 78 Resp 18 18 18 B/P 132/74 117/75 Pulse Ox 99 98 99 O2 Delivery Room Air Room Air Room Air Room Air 06/14/16 06/14/16 06/14/16 06/14/16 08:32 09:07 09:32 10:00 Pulse 61 70 64 Resp 18 16 14 B/P 132/74 133/78 109/61 Pulse Ox 98 99 98 O2 Delivery Room Air Room Air 06/14/16 06/14/16 06/14/16 06/14/16 11:06 12:00 12:00 13:00 Temp 98.5 98.5 Pulse 60 65 70 Resp 14 14 14 B/P 102/59 117/71 122/71 Pulse Ox 99 99 98 O2 Delivery Room Air Room Air Room Air Room Air 06/14/16 14:00 Pulse 66 Resp 14 B/P 114/61 Pulse Ox 99 O2 Delivery Room Air Intake and Output 06/13/16 06/13/16 06/14/16 15:00 23:00 07:00 Intake Total 1000 ml 690 ml 713 ml Output Total 125 ml 125 ml Balance 1000 ml 565 ml 588 ml CHRISTEL GRIFFITHS III DO Jun 14, 2016 16:07
[2016-06-14] MEDS ORDERED: WARFARIN 2.5 MG TABLET. PO ONE (17:00)
--- NOTE | 2016-06-14 18:43 | PDOC2 ---
CONSULT Date of Consult Date of Consult DATE: 06/14/16 TIME: 18:21 Reason for Consult Reason for Consult: Previous valve replacement with new subdural hematoma. Referring Physician Referring Physician: Dr. Colby Identification/Chief Complaint Chief Complaint Weakness and headache. Source Source: Chart review History of Present Illness Reason for Visit: The patient is a 50-year-old male who presented to the emergency room with several weeks of progressive weakness and headache. He has a history of Marfan syndrome and has reportedly both aortic valve replacement and a mitral valve replacement most recently at . CT head scan showed bilateral subdural hematomas. He was on Coumadin for his bowels and his Coumadin has been reversed. Old records have been requested. The neurosurgical service has been notified. The patient this morning is resting fairly comfortably in bed. Past Medical History Cardiovascular: HTN, Other (Marfan's syndrome) Past Surgical History Past Surgical History: Other (aortic valve replacement, mitral valve replacement, mesh placement.) Family History Family History: Heart Disease Social History No Current Problem List Problem List Problems Medical Problems: (1) Subdural hematoma Status: Acute (2) Supratherapeutic INR Status: Acute Current Medications Current Medications Current Medications Sodium Chloride (Iv Sodium Chloride 0.9% 1000ml Bag) 1,000 ml @ 100 mls/hr 1X ONCE IV Last administered on 06/13/16 13:45; Start 06/13/16 at 13:45; Stop at 23:44; Status DC Phytonadione (Mephyton) 10 mg 1X ONCE PO Last administered on 06/13/16 15:03; Start 06/13/16 at 15:00; Stop 06/13/16 at 15:01; Status DC Ondansetron HCl 4 mg 4 mg PRN Q8HRS PRN IV NAUSEA/VOMITING; Start 06/13/16 at 16 :15; Stop 06/14/16 at 16:14; Status DC Sodium Chloride (Iv Sodium Chloride 0.9% 1000ml Bag) 1,000 ml @ 100 mls/hr Q10H IV Last administered on 06/14/16 05:49; Start 06/13/16 at 16:10; Stop at 13:20; Status DC Morphine Sulfate 2 mg 1X ONCE IV Last administered on 06/13/16 18:08; Start at 18:30; Stop 06/13/16 at 18:31; Status DC Oxycodone/ Acetaminophen (Percocet 5/325) 1 tab PRN Q4HRS PRN PO PAIN Last administered on 06/14/16 08:32; Start 06/13/16 at 18:00 Oxycodone/ Acetaminophen (Percocet 5/325) 2 tab PRN Q4HRS PRN PO PAIN; Start at 18:00 Metoprolol Succinate (Toprol Xl) 25 mg DAILY PO Last administered on 06/14/16 08:32; Start 06/14/16 at 09:00 Lorazepam 2 mg 2 mg PRN Q4HRS PRN IV ANXIETY / AGITATION; Start 06/13/16 at 19: 45 Levetiracetam 500 mg/Sodium Chloride 105 ml @ 400 mls/hr PRN Q12HRS PRN IV SEIZURES; Start 06/13/16 at 19:45 Potassium Chloride/Sodium Chloride (KCl 20 Meq-0.45% Nacl) 1,000 ml @ 100 mls/ hr Q10H IV Last administered on 06/14/16 13:39; Start 06/14/16 at 13:30 Warfarin Sodium (Coumadin Per Pharmacy) 1 each PRN DAILY PRN MC SEE COMMENTS Last administered on 06/14/16 16:23; Start 06/14/16 at 16:00 Warfarin Sodium (Coumadin) 2.5 mg 1X WARF ONCE PO ; Start 06/14/16 at 17:00; Stop 06/14/16 at 17:01; Status Cancel Active Scripts Active Reported Coumadin (Warfarin Sodium) 5 Mg Tablet 1 Tab PO DAILY Metoprolol Succinate ( Xl ) (Metoprolol Succinate) 25 Mg Tab.er.24h 25 Mg PO DAILY Allergies Allergies: Coded Allergies: No Known Drug Allergies (Unverified , 06/13/16) ROS General: YES: Fatigue Respiratory: YES: SOB with excertion, Shortness of breath Physical Exam General: mild distress HEENT: Atraumatic Lungs: Other (mildly decreased breath sounds) Heart: Regular rate Abdomen: Normal bowel sounds Vitals VITALS Vital Signs Date Time Temp Pulse Resp B/P Pulse Ox O2 Delivery O2 Flow Rate FiO2 06/14/16 18:00 68 16 140/70 98 Room Air 06/14/16 16:00 98.6 98.6 Labs Labs Laboratory Tests Test 06/13/16 13:30 06/13/16 13:45 06/13/16 14:05 06/13/16 23:00 White Blood Count 8.1x10^3/uL (4.0-11.0) Red Blood Count 5.22x10^6/uL (4.30-5.70) Hemoglobin 15.9g/dL (13.0-17.5) Hematocrit 46.8% (39.0-53.0) Mean Corpuscular Volume 90fL (79-100) Mean Corpuscular Hemoglobin 31pg (25-35) Mean Corpuscular Hemoglobin Concent 34g/dL (31-37) Red Cell Distribution Width 13.4% (11.5-14.5) Platelet Count 173x10^3/uL (140-400) Neutrophils (%) (Auto) 77% (31-73) Lymphocytes (%) (Auto) 11% (24-48) Monocytes (%) (Auto) 10% (0-9) Eosinophils (%) (Auto) 1% (0-3) Basophils (%) (Auto) 1% (0-3) Neutrophils # (Auto) 6.3x10^3uL (1.8-7.7) Lymphocytes # (Auto) 0.9x10^3/uL (1.0-4.8) Monocytes # (Auto) 0.8x10^3/uL (0.0-1.1) Eosinophils # (Auto) 0.1x10^3/uL (0.0-0.7) Basophils # (Auto) 0.0x10^3/uL (0.0-0.2) Prothrombin Time 41.1SEC (11.7-14.0) 25.2SEC (11.7-14.0) Prothromb Time International Ratio 4.6 (0.8-1.1) 2.5 (0.8-1.1) Activated Partial Thromboplast Time 71SEC (24-38) Sodium Level 142mmol/L (136-145) Potassium Level 3.6mmol/L (3.5-5.1) Chloride Level 103mmol/L (98-107) Carbon Dioxide Level 34mmol/L (21-32) Anion Gap 5 (6-14) Blood Urea Nitrogen 24mg/dL (8-26) Creatinine 1.0mg/dL (0.7-1.3) Estimated GFR (Cockcroft-Gault) 79.1 BUN/Creatinine Ratio 24 (6-20) Glucose Level 112mg/dL (70-99) Lactic Acid Level 1.2mmol/L (0.4-2.0) Calcium Level 9.2mg/dL (8.5-10.1) Total Bilirubin 0.5mg/dL (0.2-1.0) Aspartate Amino Transf (AST/SGOT) 32U/L (15-37) Alanine Aminotransferase (ALT/SGPT) 28U/L (16-63) Alkaline Phosphatase 58U/L (46-116) Troponin I Quantitative < 0.017ng/mL (0.000-0.055) YN-Rip-P-Type Natriuretic Peptide 119pg/mL (0-124) Total Protein 8.1g/dL (6.4-8.2) Albumin 3.8g/dL (3.4-5.0) Albumin/Globulin Ratio 0.9 (1.0-1.7) Influenza Type A Antigen Negative (NEGATIVE) Influenza Type B Antigen Negative (NEGATIVE) Urine Collection Type Unknown Urine Color Nicole Urine Clarity Hazy Urine pH 5.5 Urine Specific [place] >=1.030 Urine Protein Negativemg/dL (NEG-TRACE) Urine Glucose (UA) Negativemg/dL (NEG) Urine Ketones (Stick) Tracemg/dL (NEG) Urine Blood Small (NEG) Urine Nitrite Negative (NEG) Urine Bilirubin Small (NEG) Urine Urobilinogen Dipstick 0.2mg/dL (0.2 mg/dL) Urine Leukocyte Esterase Trace (NEG) Urine RBC Occ/HPF (0-2) Urine WBC 1-4/HPF (0-4) Urine Bacteria 0/HPF (0-FEW) Urine Mucus Marked/LPF Urine Sperm Present/HPF Urine Opiates Screen Neg (NEG) Urine Methadone Screen Neg (NEG) Urine Barbiturates Neg (NEG) Urine Phencyclidine Screen Neg (NEG) Urine Amphetamine/Methamphetamine Neg (NEG) Urine Benzodiazepines Screen Neg (NEG) Urine Cocaine Screen Neg (NEG) Urine Cannabinoids Screen Neg (NEG) Urine Ethyl Alcohol Neg (NEG) Test 1/8/17 08:30 White Blood Count 7.4x10^3/uL (4.0-11.0) Red Blood Count 4.44x10^6/uL (4.30-5.70) Hemoglobin 13.4g/dL (13.0-17.5) Hematocrit 40.2% (39.0-53.0) Mean Corpuscular Volume 90fL (79-100) Mean Corpuscular Hemoglobin 30pg (25-35) Mean Corpuscular Hemoglobin Concent 33g/dL (31-37) Red Cell Distribution Width 13.6% (11.5-14.5) Platelet Count 157x10^3/uL (140-400) Neutrophils (%) (Auto) 76% (31-73) Lymphocytes (%) (Auto) 11% (24-48) Monocytes (%) (Auto) 9% (0-9) Eosinophils (%) (Auto) 2% (0-3) Basophils (%) (Auto) 1% (0-3) Neutrophils # (Auto) 5.7x10^3uL (1.8-7.7) Lymphocytes # (Auto) 0.8x10^3/uL (1.0-4.8) Monocytes # (Auto) 0.7x10^3/uL (0.0-1.1) Eosinophils # (Auto) 0.2x10^3/uL (0.0-0.7) Basophils # (Auto) 0.1x10^3/uL (0.0-0.2) Prothrombin Time 22.9SEC (11.7-14.0) Prothromb Time International Ratio 2.2 (0.8-1.1) Sodium Level 143mmol/L (136-145) Potassium Level 3.6mmol/L (3.5-5.1) Chloride Level 108mmol/L (98-107) Carbon Dioxide Level 30mmol/L (21-32) Anion Gap 5 (6-14) Blood Urea Nitrogen 16mg/dL (8-26) Creatinine 0.8mg/dL (0.7-1.3) Estimated GFR (Cockcroft-Gault) 102.3 Glucose Level 95mg/dL (70-99) Calcium Level 8.3mg/dL (8.5-10.1) Laboratory Tests Test 06/13/16 23:00 1/8/17 08:30 Prothrombin Time 25.2SEC (11.7-14.0) 22.9SEC (11.7-14.0) Prothromb Time International Ratio 2.5 (0.8-1.1) 2.2 (0.8-1.1) White Blood Count 7.4x10^3/uL (4.0-11.0) Red Blood Count 4.44x10^6/uL (4.30-5.70) Hemoglobin 13.4g/dL (13.0-17.5) Hematocrit 40.2% (39.0-53.0) Mean Corpuscular Volume 90fL (79-100) Mean Corpuscular Hemoglobin 30pg (25-35) Mean Corpuscular Hemoglobin Concent 33g/dL (31-37) Red Cell Distribution Width 13.6% (11.5-14.5) Platelet Count 157x10^3/uL (140-400) Neutrophils (%) (Auto) 76% (31-73) Lymphocytes (%) (Auto) 11% (24-48) Monocytes (%) (Auto) 9% (0-9) Eosinophils (%) (Auto) 2% (0-3) Basophils (%) (Auto) 1% (0-3) Neutrophils # (Auto) 5.7x10^3uL (1.8-7.7) Lymphocytes # (Auto) 0.8x10^3/uL (1.0-4.8) Monocytes # (Auto) 0.7x10^3/uL (0.0-1.1) Eosinophils # (Auto) 0.2x10^3/uL (0.0-0.7) Basophils # (Auto) 0.1x10^3/uL (0.0-0.2) Sodium Level 143mmol/L (136-145) Potassium Level 3.6mmol/L (3.5-5.1) Chloride Level 108mmol/L (98-107) Carbon Dioxide Level 30mmol/L (21-32) Anion Gap 5 (6-14) Blood Urea Nitrogen 16mg/dL (8-26) Creatinine 0.8mg/dL (0.7-1.3) Estimated GFR (Cockcroft-Gault) 102.3 Glucose Level 95mg/dL (70-99) Calcium Level 8.3mg/dL (8.5-10.1) Images Images CT head scan with bilateral subdural hematomas. Assessment/Plan Assessment/Plan 1. Subdural hematomas. Patient's anticoagulation has been reversed. The neurosurgical service has been notified. 2. Marfan's syndrome with a history of an aortic valve replacement as well as a mitral valve replacement approximately 4 years ago at . Patient has been on anticoagulation for his bowels. Anticoagulation has needed to be reversed. At this time we'll continue close monitoring. Will obtain records from . We'll recheck an echocardiogram. We'll need to reinstitute anticoagulation once okayed by the neurosurgical service. 3. Hypertension. Continue to monitor and adjust medications as needed. Thank you for allowing us to participate in the care of your patient. JOE FISCHER MD Jun 14, 2016 18:43
[2016-06-15] VITALS (23 sets, daily range): BP systolic 91–128; BP diastolic 46–85
[2016-06-15] MEDS: POTASSIUM CL 20MEQ-0.45% NACL 1,000 ML IV SCH ×3 (05:12→23:12)
[2016-06-15 06:31] LABS: BASO # 0.1 x10^3/uL (0.0-0.2); BASO % 1 % (0-3); EOS % 4 % (0-3); HEMATOCRIT 40.9 % (39.0-53.0); HEMOGLOBIN 13.5 g/dL (13.0-17.5); LYMPH # 1.5 x10^3/uL (1.0-4.8); LYMPH % 21 % (24-48); MEAN CORPUSCULAR HEMOGLOBIN 30 pg (25-35); MEAN CORPUSCULAR HGB CONC 33 g/dL (31-37); MEAN CORPUSCULAR VOLUME 90 fL (79-100); MONO % 11 % (0-9); NEUT % 64 % (31-73); PLATELET COUNT 171 x10^3/uL (140-400); RED BLOOD COUNT 4.53 x10^6/uL (4.30-5.70); RED CELL DISTRIBUTION WIDTH 13.3 % (11.5-14.5)
[2016-06-15 06:37] LABS: INR 1.9 (0.8-1.1); PROTHROMBIN TIME PATIENT 20.6 SEC (11.7-14.0)
[2016-06-15 06:40] LABS: CALCIUM 8.7 mg/dL (8.5-10.1); CREATININE 0.8 mg/dL (0.7-1.3); GFR 102.3; POTASSIUM 3.3 mmol/L (3.5-5.1)
[2016-06-15] MEDS ORDERED: PHYTONADIONE 10 MG/ML AMPUL. SQ ONE (09:45)
[2016-06-15] MEDS ORDERED: IV RINGERS,LACTATED 1000ML 1,000 ML IV SCH (09:47)
[2016-06-15] MEDS ORDERED: MORPHINE SULFATE 2 MG/ML DISP.SYRIN. IV PRN (10:00)
[2016-06-15] MEDS ORDERED: LIDOCAINE 1% 1 ML SYRINGE. ID PRN (10:00)
[2016-06-15] MEDS ORDERED: PROCHLORPERAZINE 10 MG/2 ML VIAL. IV PRN (10:00)
[2016-06-15] MEDS ORDERED: FENTANYL PF 100 MCG/2 ML VIAL. IV PRN ×2 (10:00)
[2016-06-15] MEDS ORDERED: HYDROMORPHONE 2 MG/ML VIAL. IV PRN (10:00)
[2016-06-15] MEDS ORDERED: ONDANSETRON PF 4 MG/2 ML VIAL. IV PRN (10:00)
--- NOTE | 2016-06-15 10:04 | PDOC ---
PROGRESS NOTES Assessment Problems Medical Problems: (1) Subdural hematoma Status: Acute (2) Supratherapeutic INR Status: Acute Bilateral SDH Headache Metabolic encephalopathy. Confusion Marfan's syndrome. Left eye vision loss. Plan Keppra if has seizures. Hold anticoagulant and antiplatelet agents BP control. Otherwise as per neurosurgery's plans Subjective He denies pain or headache. Objective Vital Signs Date Time Temp Pulse Resp B/P Pulse Ox O2 Delivery O2 Flow Rate FiO2 06/15/16 09:00 68 18 95/60 99 Room Air 06/15/16 08:00 97.8 97.8 Intake and Output 06/15/16 07:00 Intake Total 2392 ml Output Total 870 ml Balance 1522 ml Intake Oral 780 ml IV Total 1612 ml Output Urine Total 870 ml # Voids 6 PHYSICAL EXAM Drowsy, does follow commands, knows that he is in the hospital, does not know the date Left cornea is scarred, right pupil reacts EOMI. CN: no focal findings. Muscle tone: normal. Muscle strength: 5 -/5 DTR: 2+ Plantar reflex: flexor Gait: not examined in bed. Sensory exam: no abnormal findings. Not cooperative with cerebellar testing Review of Relevant I have reviewed the following items jordy (where applicable) has been applied. Labs Laboratory Tests Test 06/13/16 13:30 06/13/16 13:45 06/13/16 14:05 06/13/16 16:00 White Blood Count 8.1x10^3/uL (4.0-11.0) Red Blood Count 5.22x10^6/uL (4.30-5.70) Hemoglobin 15.9g/dL (13.0-17.5) Hematocrit 46.8% (39.0-53.0) Mean Corpuscular Volume 90fL (79-100) Mean Corpuscular Hemoglobin 31pg (25-35) Mean Corpuscular Hemoglobin Concent 34g/dL (31-37) Red Cell Distribution Width 13.4% (11.5-14.5) Platelet Count 173x10^3/uL (140-400) Neutrophils (%) (Auto) 77% (31-73) Lymphocytes (%) (Auto) 11% (24-48) Monocytes (%) (Auto) 10% (0-9) Eosinophils (%) (Auto) 1% (0-3) Basophils (%) (Auto) 1% (0-3) Neutrophils # (Auto) 6.3x10^3uL (1.8-7.7) Lymphocytes # (Auto) 0.9x10^3/uL (1.0-4.8) Monocytes # (Auto) 0.8x10^3/uL (0.0-1.1) Eosinophils # (Auto) 0.1x10^3/uL (0.0-0.7) Basophils # (Auto) 0.0x10^3/uL (0.0-0.2) Prothrombin Time 41.1SEC (11.7-14.0) Prothromb Time International Ratio 4.6 (0.8-1.1) Activated Partial Thromboplast Time 71SEC (24-38) Sodium Level 142mmol/L (136-145) Potassium Level 3.6mmol/L (3.5-5.1) Chloride Level 103mmol/L (98-107) Carbon Dioxide Level 34mmol/L (21-32) Anion Gap 5 (6-14) Blood Urea Nitrogen 24mg/dL (8-26) Creatinine 1.0mg/dL (0.7-1.3) Estimated GFR (Cockcroft-Gault) 79.1 BUN/Creatinine Ratio 24 (6-20) Glucose Level 112mg/dL (70-99) Lactic Acid Level 1.2mmol/L (0.4-2.0) Calcium Level 9.2mg/dL (8.5-10.1) Total Bilirubin 0.5mg/dL (0.2-1.0) Aspartate Amino Transf (AST/SGOT) 32U/L (15-37) Alanine Aminotransferase (ALT/SGPT) 28U/L (16-63) Alkaline Phosphatase 58U/L (46-116) Troponin I Quantitative < 0.017ng/mL (0.000-0.055) UZ-Aob-G-Type Natriuretic Peptide 119pg/mL (0-124) Total Protein 8.1g/dL (6.4-8.2) Albumin 3.8g/dL (3.4-5.0) Albumin/Globulin Ratio 0.9 (1.0-1.7) Influenza Type A Antigen Negative (NEGATIVE) Influenza Type B Antigen Negative (NEGATIVE) Urine Collection Type Unknown Urine Color Nicole Urine Clarity Hazy Urine pH 5.5 Urine Specific [place] >=1.030 Urine Protein Negativemg/dL (NEG-TRACE) Urine Glucose (UA) Negativemg/dL (NEG) Urine Ketones (Stick) Tracemg/dL (NEG) Urine Blood Small (NEG) Urine Nitrite Negative (NEG) Urine Bilirubin Small (NEG) Urine Urobilinogen Dipstick 0.2mg/dL (0.2 mg/dL) Urine Leukocyte Esterase Trace (NEG) Urine RBC Occ/HPF (0-2) Urine WBC 1-4/HPF (0-4) Urine Bacteria 0/HPF (0-FEW) Urine Mucus Marked/LPF Urine Sperm Present/HPF Urine Opiates Screen Neg (NEG) Urine Methadone Screen Neg (NEG) Urine Barbiturates Neg (NEG) Urine Phencyclidine Screen Neg (NEG) Urine Amphetamine/Methamphetamine Neg (NEG) Urine Benzodiazepines Screen Neg (NEG) Urine Cocaine Screen Neg (NEG) Urine Cannabinoids Screen Neg (NEG) Urine Ethyl Alcohol Neg (NEG) Nasal Screen MRSA (PCR) Negative (Negative) Test 06/13/16 23:00 06/14/16 08:30 06/15/16 05:30 Prothrombin Time 25.2SEC (11.7-14.0) 22.9SEC (11.7-14.0) 20.6SEC (11.7-14.0) Prothromb Time International Ratio 2.5 (0.8-1.1) 2.2 (0.8-1.1) 1.9 (0.8-1.1) White Blood Count 7.4x10^3/uL (4.0-11.0) 7.0x10^3/uL (4.0-11.0) Red Blood Count 4.44x10^6/uL (4.30-5.70) 4.53x10^6/uL (4.30-5.70) Hemoglobin 13.4g/dL (13.0-17.5) 13.5g/dL (13.0-17.5) Hematocrit 40.2% (39.0-53.0) 40.9% (39.0-53.0) Mean Corpuscular Volume 90fL (79-100) 90fL (79-100) Mean Corpuscular Hemoglobin 30pg (25-35) 30pg (25-35) Mean Corpuscular Hemoglobin Concent 33g/dL (31-37) 33g/dL (31-37) Red Cell Distribution Width 13.6% (11.5-14.5) 13.3% (11.5-14.5) Platelet Count 157x10^3/uL (140-400) 171x10^3/uL (140-400) Neutrophils (%) (Auto) 76% (31-73) 64% (31-73) Lymphocytes (%) (Auto) 11% (24-48) 21% (24-48) Monocytes (%) (Auto) 9% (0-9) 11% (0-9) Eosinophils (%) (Auto) 2% (0-3) 4% (0-3) Basophils (%) (Auto) 1% (0-3) 1% (0-3) Neutrophils # (Auto) 5.7x10^3uL (1.8-7.7) 4.4x10^3uL (1.8-7.7) Lymphocytes # (Auto) 0.8x10^3/uL (1.0-4.8) 1.5x10^3/uL (1.0-4.8) Monocytes # (Auto) 0.7x10^3/uL (0.0-1.1) 0.7x10^3/uL (0.0-1.1) Eosinophils # (Auto) 0.2x10^3/uL (0.0-0.7) 0.3x10^3/uL (0.0-0.7) Basophils # (Auto) 0.1x10^3/uL (0.0-0.2) 0.1x10^3/uL (0.0-0.2) Sodium Level 143mmol/L (136-145) 139mmol/L (136-145) Potassium Level 3.6mmol/L (3.5-5.1) 3.3mmol/L (3.5-5.1) Chloride Level 108mmol/L (98-107) 104mmol/L (98-107) Carbon Dioxide Level 30mmol/L (21-32) 28mmol/L (21-32) Anion Gap 5 (6-14) 7 (6-14) Blood Urea Nitrogen 16mg/dL (8-26) 8mg/dL (8-26) Creatinine 0.8mg/dL (0.7-1.3) 0.8mg/dL (0.7-1.3) Estimated GFR (Cockcroft-Gault) 102.3 102.3 Glucose Level 95mg/dL (70-99) 82mg/dL (70-99) Calcium Level 8.3mg/dL (8.5-10.1) 8.7mg/dL (8.5-10.1) Laboratory Tests Test 06/15/16 05:30 White Blood Count 7.0x10^3/uL (4.0-11.0) Red Blood Count 4.53x10^6/uL (4.30-5.70) Hemoglobin 13.5g/dL (13.0-17.5) Hematocrit 40.9% (39.0-53.0) Mean Corpuscular Volume 90fL (79-100) Mean Corpuscular Hemoglobin 30pg (25-35) Mean Corpuscular Hemoglobin Concent 33g/dL (31-37) Red Cell Distribution Width 13.3% (11.5-14.5) Platelet Count 171x10^3/uL (140-400) Neutrophils (%) (Auto) 64% (31-73) Lymphocytes (%) (Auto) 21% (24-48) Monocytes (%) (Auto) 11% (0-9) Eosinophils (%) (Auto) 4% (0-3) Basophils (%) (Auto) 1% (0-3) Neutrophils # (Auto) 4.4x10^3uL (1.8-7.7) Lymphocytes # (Auto) 1.5x10^3/uL (1.0-4.8) Monocytes # (Auto) 0.7x10^3/uL (0.0-1.1) Eosinophils # (Auto) 0.3x10^3/uL (0.0-0.7) Basophils # (Auto) 0.1x10^3/uL (0.0-0.2) Prothrombin Time 20.6SEC (11.7-14.0) Prothromb Time International Ratio 1.9 (0.8-1.1) Sodium Level 139mmol/L (136-145) Potassium Level 3.3mmol/L (3.5-5.1) Chloride Level 104mmol/L (98-107) Carbon Dioxide Level 28mmol/L (21-32) Anion Gap 7 (6-14) Blood Urea Nitrogen 8mg/dL (8-26) Creatinine 0.8mg/dL (0.7-1.3) Estimated GFR (Cockcroft-Gault) 102.3 Glucose Level 82mg/dL (70-99) Calcium Level 8.7mg/dL (8.5-10.1) Medications Current Medications Sodium Chloride (Iv Sodium Chloride 0.9% 1000ml Bag) 1,000 ml @ 100 mls/hr 1X ONCE IV Last administered on 06/13/16 13:45; Start 06/13/16 at 13:45; Stop at 23:44; Status DC Phytonadione (Mephyton) 10 mg 1X ONCE PO Last administered on 06/13/16 15:03; Start 06/13/16 at 15:00; Stop 06/13/16 at 15:01; Status DC Ondansetron HCl 4 mg 4 mg PRN Q8HRS PRN IV NAUSEA/VOMITING; Start 06/13/16 at 16 :15; Stop 06/14/16 at 16:14; Status DC Sodium Chloride (Iv Sodium Chloride 0.9% 1000ml Bag) 1,000 ml @ 100 mls/hr Q10H IV Last administered on 06/14/16 05:49; Start 06/13/16 at 16:10; Stop at 13:20; Status DC Morphine Sulfate 2 mg 1X ONCE IV Last administered on 06/13/16 18:08; Start at 18:30; Stop 06/13/16 at 18:31; Status DC Oxycodone/ Acetaminophen (Percocet 5/325) 1 tab PRN Q4HRS PRN PO PAIN Last administered on 06/14/16 08:32; Start 06/13/16 at 18:00 Oxycodone/ Acetaminophen (Percocet 5/325) 2 tab PRN Q4HRS PRN PO PAIN; Start at 18:00 Metoprolol Succinate (Toprol Xl) 25 mg DAILY PO Last administered on 06/14/16 08:32; Start 06/14/16 at 09:00 Lorazepam 2 mg 2 mg PRN Q4HRS PRN IV ANXIETY / AGITATION; Start 06/13/16 at 19: 45 Levetiracetam 500 mg/Sodium Chloride 105 ml @ 400 mls/hr PRN Q12HRS PRN IV SEIZURES; Start 06/13/16 at 19:45 Potassium Chloride/Sodium Chloride (KCl 20 Meq-0.45% Nacl) 1,000 ml @ 100 mls/ hr Q10H IV Last administered on 06/15/16 08:01; Start 06/14/16 at 13:30 Warfarin Sodium (Coumadin Per Pharmacy) 1 each PRN DAILY PRN MC SEE COMMENTS Last administered on 06/14/16 16:23; Start 06/14/16 at 16:00 Warfarin Sodium 2.5 mg 2.5 mg 1X WARF ONCE PO ; Start 06/14/16 at 17:00; Stop at 17:01; Status Cancel Bacitracin/Sodium Chloride (Iv Sodium Chloride 0.9% 1000ml Bag) 1,000 ml @ 1, 000 mls/hr 1X PERIOP ONCE IRR ; Start 06/15/16 at 10:00; Stop 06/15/16 at 10:59 Ondansetron HCl (Zofran) 4 mg PRN Q6HRS PRN IV Nausea; Start 06/15/16 at 10:00; Stop 06/16/16 at 09:59 Fentanyl Citrate (Fentanyl 2ml Vial) 25 mcg PRN Q5MIN PRN IV MILD PAIN; Start 06/15/16 at 10:00; Stop 06/16/16 at 09:59 Fentanyl Citrate (Fentanyl 2ml Vial) 50 mcg PRN Q5MIN PRN IV MODERATE PAIN; Start 06/15/16 at 10:00; Stop 06/16/16 at 09:59 Morphine Sulfate 1 mg 1 mg PRN Q10MIN PRN IV SEVERE PAIN; Start 06/15/16 at 10: 00; Stop 06/16/16 at 09:59 Lactated Ringer's (Iv Lactated Ringers) 1,000 ml @ 30 mls/hr Q24H IV ; Start at 09:47; Stop 06/15/16 at 21:46 Lidocaine HCl 2 ml 1X PRN PRN ID IV START; Start 06/15/16 at 10:00; Stop at 09:59 Hydromorphone HCl (Dilaudid) 0.5 mg PRN Q10MIN PRN IV SEV PAIN,Second choice; Start 06/15/16 at 10:00; Stop 06/16/16 at 09:59 Prochlorperazine Edisylate (Compazine) 5 mg PACU PRN PRN IV NAUSEA; Start at 10:00; Stop 06/16/16 at 09:59 Phytonadione (Vitamin K) 2 mg 1X ONCE SQ ; Start 06/15/16 at 09:45; Stop at 09:57; Status DC Active Scripts Active Reported Coumadin (Warfarin Sodium) 5 Mg Tablet 1 Tab PO DAILY Metoprolol Succinate ( Xl ) (Metoprolol Succinate) 25 Mg Tab.er.24h 25 Mg PO DAILY Vitals/I & O Vital Sign - Last 24 Hours 06/14/16 06/14/16 06/14/16 06/14/16 10:00 11:06 12:00 12:00 Temp 98.5 98.5 Pulse 64 60 65 Resp 14 14 14 B/P 109/61 102/59 117/71 Pulse Ox 98 99 99 O2 Delivery Room Air Room Air Room Air Room Air 06/14/16 06/14/16 06/14/16 06/14/16 13:00 14:00 15:00 16:00 Pulse 70 66 69 Resp 14 14 14 B/P 122/71 114/61 110/73 Pulse Ox 98 99 99 O2 Delivery Room Air Room Air Room Air Room Air 06/14/16 06/14/16 06/14/16 06/14/16 16:00 17:00 18:00 19:00 Temp 98.6 98.6 Pulse 69 68 68 67 Resp 14 14 16 16 B/P 96/69 95/50 140/70 104/49 Pulse Ox 98 97 98 99 O2 Delivery Room Air Room Air Room Air Room Air 06/14/16 06/14/16 06/14/16 06/14/16 20:00 20:00 21:15 22:00 Temp 98.5 98.5 Pulse 65 67 64 Resp 16 16 16 B/P 120/69 142/86 128/79 Pulse Ox 99 100 100 O2 Delivery Room Air Room Air Room Air Room Air 06/14/16 06/14/16 06/14/16 06/15/16 23:00 23:59 23:59 01:00 Temp 97.6 97.6 Pulse 67 71 75 Resp 18 16 18 B/P 130/75 132/90 113/65 Pulse Ox 98 98 100 O2 Delivery Room Air Room Air Room Air Room Air 06/15/16 06/15/16 06/15/16 06/15/16 02:00 03:00 04:00 04:00 Temp 98.9 98.9 Pulse 60 63 66 Resp 18 18 16 B/P 99/46 91/55 91/51 Pulse Ox 99 98 99 O2 Delivery Room Air Room Air Room Air Room Air 06/15/16 06/15/16 06/15/16 06/15/16 05:00 06:00 08:00 08:00 Temp 97.8 97.8 Pulse 81 66 85 Resp 16 16 16 B/P 104/65 119/81 128/85 Pulse Ox 99 97 99 O2 Delivery Room Air Room Air Room Air Room Air 06/15/16 09:00 Pulse 68 Resp 18 B/P 95/60 Pulse Ox 99 O2 Delivery Room Air Intake and Output 06/14/16 06/14/16 06/15/16 15:00 23:00 07:00 Intake Total 1600 ml 792 ml 0 ml Output Total 450 ml 420 ml Balance 1150 ml 372 ml [address] 06/14: Bilateral subdural hematomas without change. EDWARD AMBROSE MD Jun 15, 2016 10:04
--- NOTE | 2016-06-15 10:15 | PDOC ---
PROGRESS NOTES Subjective Subjective remains confused c/o headache Objective Objective Vital Signs Date Time Temp Pulse Resp B/P Pulse Ox O2 Delivery O2 Flow Rate FiO2 06/15/16 09:00 68 18 95/60 99 Room Air 06/15/16 08:00 97.8 97.8 Intake and Output 06/15/16 07:00 Intake Total 2392 ml Output Total 870 ml Balance 1522 ml Intake Oral 780 ml IV Total 1612 ml Output Urine Total 870 ml # Voids 6 Physical Exam General: Cooperative, No acute distress, Other (oriented to self) Neuro: Other (MIRANDA, unchanged neuro exam) Assessment Assessment Problems Medical Problems: (1) Subdural hematoma Status: Acute (2) Supratherapeutic INR Status: Acute Plan Plan of Care CT pending INR 1.9 d/w brotherFrotunato. Received consent. will plan for nela hole of left SDH today. will give more FFP and Vit K. Comment Review of Relevant I have reviewed the following items jordy (where applicable) has been applied. Labs Laboratory Tests Test 06/13/16 13:30 06/13/16 13:45 06/13/16 14:05 06/13/16 16:00 White Blood Count 8.1x10^3/uL (4.0-11.0) Red Blood Count 5.22x10^6/uL (4.30-5.70) Hemoglobin 15.9g/dL (13.0-17.5) Hematocrit 46.8% (39.0-53.0) Mean Corpuscular Volume 90fL (79-100) Mean Corpuscular Hemoglobin 31pg (25-35) Mean Corpuscular Hemoglobin Concent 34g/dL (31-37) Red Cell Distribution Width 13.4% (11.5-14.5) Platelet Count 173x10^3/uL (140-400) Neutrophils (%) (Auto) 77% (31-73) Lymphocytes (%) (Auto) 11% (24-48) Monocytes (%) (Auto) 10% (0-9) Eosinophils (%) (Auto) 1% (0-3) Basophils (%) (Auto) 1% (0-3) Neutrophils # (Auto) 6.3x10^3uL (1.8-7.7) Lymphocytes # (Auto) 0.9x10^3/uL (1.0-4.8) Monocytes # (Auto) 0.8x10^3/uL (0.0-1.1) Eosinophils # (Auto) 0.1x10^3/uL (0.0-0.7) Basophils # (Auto) 0.0x10^3/uL (0.0-0.2) Prothrombin Time 41.1SEC (11.7-14.0) Prothromb Time International Ratio 4.6 (0.8-1.1) Activated Partial Thromboplast Time 71SEC (24-38) Sodium Level 142mmol/L (136-145) Potassium Level 3.6mmol/L (3.5-5.1) Chloride Level 103mmol/L (98-107) Carbon Dioxide Level 34mmol/L (21-32) Anion Gap 5 (6-14) Blood Urea Nitrogen 24mg/dL (8-26) Creatinine 1.0mg/dL (0.7-1.3) Estimated GFR (Cockcroft-Gault) 79.1 BUN/Creatinine Ratio 24 (6-20) Glucose Level 112mg/dL (70-99) Lactic Acid Level 1.2mmol/L (0.4-2.0) Calcium Level 9.2mg/dL (8.5-10.1) Total Bilirubin 0.5mg/dL (0.2-1.0) Aspartate Amino Transf (AST/SGOT) 32U/L (15-37) Alanine Aminotransferase (ALT/SGPT) 28U/L (16-63) Alkaline Phosphatase 58U/L (46-116) Troponin I Quantitative < 0.017ng/mL (0.000-0.055) LR-Opc-X-Type Natriuretic Peptide 119pg/mL (0-124) Total Protein 8.1g/dL (6.4-8.2) Albumin 3.8g/dL (3.4-5.0) Albumin/Globulin Ratio 0.9 (1.0-1.7) Influenza Type A Antigen Negative (NEGATIVE) Influenza Type B Antigen Negative (NEGATIVE) Urine Collection Type Unknown Urine Color Nicole Urine Clarity Hazy Urine pH 5.5 Urine Specific Wolsey >=1.030 Urine Protein Negativemg/dL (NEG-TRACE) Urine Glucose (UA) Negativemg/dL (NEG) Urine Ketones (Stick) Tracemg/dL (NEG) Urine Blood Small (NEG) Urine Nitrite Negative (NEG) Urine Bilirubin Small (NEG) Urine Urobilinogen Dipstick 0.2mg/dL (0.2 mg/dL) Urine Leukocyte Esterase Trace (NEG) Urine RBC Occ/HPF (0-2) Urine WBC 1-4/HPF (0-4) Urine Bacteria 0/HPF (0-FEW) Urine Mucus Marked/LPF Urine Sperm Present/HPF Urine Opiates Screen Neg (NEG) Urine Methadone Screen Neg (NEG) Urine Barbiturates Neg (NEG) Urine Phencyclidine Screen Neg (NEG) Urine Amphetamine/Methamphetamine Neg (NEG) Urine Benzodiazepines Screen Neg (NEG) Urine Cocaine Screen Neg (NEG) Urine Cannabinoids Screen Neg (NEG) Urine Ethyl Alcohol Neg (NEG) Nasal Screen MRSA (PCR) Negative (Negative) Test 06/13/16 23:00 06/14/16 08:30 06/15/16 05:30 Prothrombin Time 25.2SEC (11.7-14.0) 22.9SEC (11.7-14.0) 20.6SEC (11.7-14.0) Prothromb Time International Ratio 2.5 (0.8-1.1) 2.2 (0.8-1.1) 1.9 (0.8-1.1) White Blood Count 7.4x10^3/uL (4.0-11.0) 7.0x10^3/uL (4.0-11.0) Red Blood Count 4.44x10^6/uL (4.30-5.70) 4.53x10^6/uL (4.30-5.70) Hemoglobin 13.4g/dL (13.0-17.5) 13.5g/dL (13.0-17.5) Hematocrit 40.2% (39.0-53.0) 40.9% (39.0-53.0) Mean Corpuscular Volume 90fL (79-100) 90fL (79-100) Mean Corpuscular Hemoglobin 30pg (25-35) 30pg (25-35) Mean Corpuscular Hemoglobin Concent 33g/dL (31-37) 33g/dL (31-37) Red Cell Distribution Width 13.6% (11.5-14.5) 13.3% (11.5-14.5) Platelet Count 157x10^3/uL (140-400) 171x10^3/uL (140-400) Neutrophils (%) (Auto) 76% (31-73) 64% (31-73) Lymphocytes (%) (Auto) 11% (24-48) 21% (24-48) Monocytes (%) (Auto) 9% (0-9) 11% (0-9) Eosinophils (%) (Auto) 2% (0-3) 4% (0-3) Basophils (%) (Auto) 1% (0-3) 1% (0-3) Neutrophils # (Auto) 5.7x10^3uL (1.8-7.7) 4.4x10^3uL (1.8-7.7) Lymphocytes # (Auto) 0.8x10^3/uL (1.0-4.8) 1.5x10^3/uL (1.0-4.8) Monocytes # (Auto) 0.7x10^3/uL (0.0-1.1) 0.7x10^3/uL (0.0-1.1) Eosinophils # (Auto) 0.2x10^3/uL (0.0-0.7) 0.3x10^3/uL (0.0-0.7) Basophils # (Auto) 0.1x10^3/uL (0.0-0.2) 0.1x10^3/uL (0.0-0.2) Sodium Level 143mmol/L (136-145) 139mmol/L (136-145) Potassium Level 3.6mmol/L (3.5-5.1) 3.3mmol/L (3.5-5.1) Chloride Level 108mmol/L (98-107) 104mmol/L (98-107) Carbon Dioxide Level 30mmol/L (21-32) 28mmol/L (21-32) Anion Gap 5 (6-14) 7 (6-14) Blood Urea Nitrogen 16mg/dL (8-26) 8mg/dL (8-26) Creatinine 0.8mg/dL (0.7-1.3) 0.8mg/dL (0.7-1.3) Estimated GFR (Cockcroft-Gault) 102.3 102.3 Glucose Level 95mg/dL (70-99) 82mg/dL (70-99) Calcium Level 8.3mg/dL (8.5-10.1) 8.7mg/dL (8.5-10.1) Laboratory Tests Test 06/15/16 05:30 White Blood Count 7.0x10^3/uL (4.0-11.0) Red Blood Count 4.53x10^6/uL (4.30-5.70) Hemoglobin 13.5g/dL (13.0-17.5) Hematocrit 40.9% (39.0-53.0) Mean Corpuscular Volume 90fL (79-100) Mean Corpuscular Hemoglobin 30pg (25-35) Mean Corpuscular Hemoglobin Concent 33g/dL (31-37) Red Cell Distribution Width 13.3% (11.5-14.5) Platelet Count 171x10^3/uL (140-400) Neutrophils (%) (Auto) 64% (31-73) Lymphocytes (%) (Auto) 21% (24-48) Monocytes (%) (Auto) 11% (0-9) Eosinophils (%) (Auto) 4% (0-3) Basophils (%) (Auto) 1% (0-3) Neutrophils # (Auto) 4.4x10^3uL (1.8-7.7) Lymphocytes # (Auto) 1.5x10^3/uL (1.0-4.8) Monocytes # (Auto) 0.7x10^3/uL (0.0-1.1) Eosinophils # (Auto) 0.3x10^3/uL (0.0-0.7) Basophils # (Auto) 0.1x10^3/uL (0.0-0.2) Prothrombin Time 20.6SEC (11.7-14.0) Prothromb Time International Ratio 1.9 (0.8-1.1) Sodium Level 139mmol/L (136-145) Potassium Level 3.3mmol/L (3.5-5.1) Chloride Level 104mmol/L (98-107) Carbon Dioxide Level 28mmol/L (21-32) Anion Gap 7 (6-14) Blood Urea Nitrogen 8mg/dL (8-26) Creatinine 0.8mg/dL (0.7-1.3) Estimated GFR (Cockcroft-Gault) 102.3 Glucose Level 82mg/dL (70-99) Calcium Level 8.7mg/dL (8.5-10.1) Medications Current Medications Sodium Chloride (Iv Sodium Chloride 0.9% 1000ml Bag) 1,000 ml @ 100 mls/hr 1X ONCE IV Last administered on 06/13/16 13:45; Start 06/13/16 at 13:45; Stop at 23:44; Status DC Phytonadione (Mephyton) 10 mg 1X ONCE PO Last administered on 06/13/16 15:03; Start 06/13/16 at 15:00; Stop 06/13/16 at 15:01; Status DC Ondansetron HCl 4 mg 4 mg PRN Q8HRS PRN IV NAUSEA/VOMITING; Start 06/13/16 at 16 :15; Stop 06/14/16 at 16:14; Status DC Sodium Chloride (Iv Sodium Chloride 0.9% 1000ml Bag) 1,000 ml @ 100 mls/hr Q10H IV Last administered on 06/14/16 05:49; Start 06/13/16 at 16:10; Stop at 13:20; Status DC Morphine Sulfate 2 mg 1X ONCE IV Last administered on 06/13/16 18:08; Start at 18:30; Stop 06/13/16 at 18:31; Status DC Oxycodone/ Acetaminophen (Percocet 5/325) 1 tab PRN Q4HRS PRN PO PAIN Last administered on 06/14/16 08:32; Start 06/13/16 at 18:00 Oxycodone/ Acetaminophen (Percocet 5/325) 2 tab PRN Q4HRS PRN PO PAIN; Start at 18:00 Metoprolol Succinate (Toprol Xl) 25 mg DAILY PO Last administered on 06/14/16 08:32; Start 06/14/16 at 09:00 Lorazepam 2 mg 2 mg PRN Q4HRS PRN IV ANXIETY / AGITATION; Start 06/13/16 at 19: 45 Levetiracetam 500 mg/Sodium Chloride 105 ml @ 400 mls/hr PRN Q12HRS PRN IV SEIZURES; Start 06/13/16 at 19:45 Potassium Chloride/Sodium Chloride (KCl 20 Meq-0.45% Nacl) 1,000 ml @ 100 mls/ hr Q10H IV Last administered on 06/15/16 08:01; Start 06/14/16 at 13:30 Warfarin Sodium (Coumadin Per Pharmacy) 1 each PRN DAILY PRN MC SEE COMMENTS Last administered on 06/14/16 16:23; Start 06/14/16 at 16:00 Warfarin Sodium 2.5 mg 2.5 mg 1X WARF ONCE PO ; Start 06/14/16 at 17:00; Stop at 17:01; Status Cancel Bacitracin/Sodium Chloride (Iv Sodium Chloride 0.9% 1000ml Bag) 1,000 ml @ 1, 000 mls/hr 1X PERIOP ONCE IRR ; Start 06/15/16 at 10:00; Stop 06/15/16 at 10:59 Ondansetron HCl (Zofran) 4 mg PRN Q6HRS PRN IV Nausea; Start 06/15/16 at 10:00; Stop 06/16/16 at 09:59 Fentanyl Citrate (Fentanyl 2ml Vial) 25 mcg PRN Q5MIN PRN IV MILD PAIN; Start 06/15/16 at 10:00; Stop 06/16/16 at 09:59 Fentanyl Citrate (Fentanyl 2ml Vial) 50 mcg PRN Q5MIN PRN IV MODERATE PAIN; Start 06/15/16 at 10:00; Stop 06/16/16 at 09:59 Morphine Sulfate 1 mg 1 mg PRN Q10MIN PRN IV SEVERE PAIN; Start 06/15/16 at 10: 00; Stop 06/16/16 at 09:59 Lactated Ringer's (Iv Lactated Ringers) 1,000 ml @ 30 mls/hr Q24H IV ; Start at 09:47; Stop 06/15/16 at 21:46 Lidocaine HCl 2 ml 1X PRN PRN ID IV START; Start 06/15/16 at 10:00; Stop at 09:59 Hydromorphone HCl (Dilaudid) 0.5 mg PRN Q10MIN PRN IV SEV PAIN,Second choice; Start 06/15/16 at 10:00; Stop 06/16/16 at 09:59 Prochlorperazine Edisylate (Compazine) 5 mg PACU PRN PRN IV NAUSEA; Start at 10:00; Stop 06/16/16 at 09:59 Phytonadione (Vitamin K) 2 mg 1X ONCE SQ ; Start 06/15/16 at 09:45; Stop at 09:57; Status DC Active Scripts Active Reported Coumadin (Warfarin Sodium) 5 Mg Tablet 1 Tab PO DAILY Metoprolol Succinate ( Xl ) (Metoprolol Succinate) 25 Mg Tab.er.24h 25 Mg PO DAILY Vitals/I & O Vital Sign - Last 24 Hours 06/14/16 06/14/16 06/14/16 06/14/16 11:06 12:00 12:00 13:00 Temp 98.5 98.5 Pulse 60 65 70 Resp 14 14 14 B/P 102/59 117/71 122/71 Pulse Ox 99 99 98 O2 Delivery Room Air Room Air Room Air Room Air 06/14/16 06/14/16 06/14/16 06/14/16 14:00 15:00 16:00 16:00 Temp 98.6 98.6 Pulse 66 69 69 Resp 14 14 14 B/P 114/61 110/73 96/69 Pulse Ox 99 99 98 O2 Delivery Room Air Room Air Room Air Room Air 06/14/16 06/14/16 06/14/16 06/14/16 17:00 18:00 19:00 20:00 Pulse 68 68 67 Resp 14 16 16 B/P 95/50 140/70 104/49 Pulse Ox 97 98 99 O2 Delivery Room Air Room Air Room Air Room Air 06/14/16 06/14/16 06/14/16 06/14/16 20:00 21:15 22:00 23:00 Temp 98.5 98.5 Pulse 65 67 64 67 Resp 16 16 16 18 B/P 120/69 142/86 128/79 130/75 Pulse Ox 99 100 100 98 O2 Delivery Room Air Room Air Room Air Room Air 06/14/16 06/14/16 06/15/16 06/15/16 23:59 23:59 01:00 02:00 Temp 97.6 97.6 Pulse 71 75 60 Resp 18 B/P 132/90 113/65 99/46 Pulse Ox 98 100 99 O2 Delivery Room Air Room Air Room Air Room Air 06/15/16 06/15/16 06/15/16 06/15/16 03:00 04:00 04:00 05:00 Temp 98.9 98.9 Pulse 63 66 81 Resp 16 B/P 91/55 91/51 104/65 Pulse Ox 98 99 99 O2 Delivery Room Air Room Air Room Air Room Air 06/15/16 06/15/16 06/15/16 06/15/16 06:00 08:00 08:00 09:00 Temp 97.8 97.8 Pulse 66 85 68 Resp 18 B/P 119/81 128/85 95/60 Pulse Ox 97 99 99 O2 Delivery Room Air Room Air Room Air Room Air Intake and Output 06/14/16 06/14/16 06/15/16 15:00 23:00 07:00 Intake Total 1600 ml 792 ml 0 ml Output Total 450 ml 420 ml Balance 1150 ml 372 ml 0 ml CONNIE ESTEVEZ MD Jun 15, 2016 10:15
--- NOTE | 2016-06-15 10:23 | RAD ---
CT head without contrast History: Follow-up of bilateral subdural hemorrhage. Comparison: CT head yesterday. Procedure: Axial images are obtained of the head from the skull base through the vertex without IV contrast. One or more of the following individualized dose reduction techniques were utilized for the study: Automated exposure control Adjustment of mA and/or kV according to patient's size Use of iterative reconstruction technique. Findings: There is motion artifact at several subtle abnormalities. Overall amount of bilateral subdural hemorrhage appears similar previous study. No intracranial mass is appreciated. ACUTE ischemic infarction is identified. Sanchez-white differentiation appears relatively preserved. There is at most 1-2 mm of left right midline shift of the septum pellucidum previous study. There is persistent effacement of the suprasellar cistern and almost complete effacement of quadrigeminal plate cistern; this finding is similar previous study. Almost complete effacement of the third and fourth ventricles is similar to previous study. Impression: 1. No significant interval change in overall amount of intracranial hemorrhage. 2. The degree of effacement of third and fourth ventricles as well as the ar cisterns is similar to previous study.
[2016-06-15] MEDS ORDERED: ONDANSETRON PF 4 MG/2 ML VIAL. ONE (10:26)
[2016-06-15] MEDS ORDERED: PROPOFOL 20 ML IV ONE (10:26)
[2016-06-15] MEDS ORDERED: LIDOCAINE 2% 100 MG/5 ML DISP.SYRIN. ONE (10:26)
[2016-06-15] MEDS ORDERED: ROCURONIUM 50 MG/5 ML VIAL. ONE (10:26)
[2016-06-15] MEDS ORDERED: DEXAMETHASONE SOD PHOS 20 MG/5 ML VIAL. ONE (10:26)
[2016-06-15] MEDS ORDERED: FENTANYL PF 100 MCG/2 ML VIAL. ONE ×2 (10:26→13:55)
[2016-06-15] MEDS ORDERED: THROMBIN 20,000 UNIT SPRAY.SYRN KIT TP ONE (10:47)
[2016-06-15] MEDS ORDERED: BUPIVACAINE-EPI 0.25%-1:200000 MPF 30 ML VIAL. ONE (10:48)
[2016-06-15] MEDS ORDERED: GELATIN SPONGE SIZE 100. ONE (10:48)
[2016-06-15] MEDS ORDERED: SURGICEL HEMOSTAT 4X8 EACH. ONE (10:49)
[2016-06-15] MEDS ORDERED: POTASSIUM CHLORIDE 20 MEQ TABLET.ER. PO ONE (11:15)
[2016-06-15] MEDS: METOPROLOL SUCC 24HR ER 25 MG TAB.ER.24H. PO SCH (11:23)
[2016-06-15] MEDS: BACITRACIN 50,000 UNIT in IV NORMAL SALINE 1000ML BAG 1,000 ML IRR ONE ×2 (12:20→12:41)
[2016-06-15] MEDS ORDERED: CEFAZOLIN PREMIX 2 GM/50 ML BAG. IV ONE (13:00)
[2016-06-15] MEDS ORDERED: EPHEDRINE PF IN SALINE 50 MG/5 ML DISP.SYRIN. IV ONE (13:04)
--- NOTE | 2016-06-15 13:36 | CONS ---
DATE OF CONSULTATION: 06/14/2016 REASON FOR CONSULTATION: Subdural hematomas. HISTORY OF PRESENT ILLNESS: The patient is a pleasant 50-year-old man who has Marfan syndrome. He has undergone both mitral and aortic valve replacements and has also had difficulties with retinal detachment. He has been managed on Coumadin. Per his family, he has been very sick with flu this last week. There is no history of trauma. He became confused over the last day or so and was brought to the Emergency Room for further evaluation. He denies any headache to me, but per the nurse, he has complained of intermittent headache. PAST MEDICAL HISTORY: Includes Marfan syndrome and cardiac surgeries as described above. There is also a history of eye surgeries bilaterally. He is blind in the left eye. SOCIAL HISTORY: He currently lives with his brother. 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 ALLERGIES: There are no known drug allergies. CURRENT MEDICATIONS: Have been reviewed. REVIEW OF SYSTEMS: A 12-point review of systems was performed and other than outlined above is negative. PHYSICAL EXAMINATION: GENERAL APPEARANCE: He is sitting up in bed. His right eye is open. His left eye is closed. He answered questions appropriately. He is oriented to person, place, not oriented to time. His speech is clear, but he caries on confused conversation. NEUROLOGIC: His left eye is clotted. On the right side, the pupil is oblong. He says he is able to see me and finger count. Facial motor examination was normal. Facial sensory examination was normal. Hearing was intact to finger rub. Shoulder shrug was normal. On motor testing, his strength was 5/5 in upper and lower extremities bilaterally. There was no drift. On sensory testing, he responded to light touch in the upper and lower extremities bilaterally. He had absent reflexes. HEENT: Normocephalic. There was no evidence of trauma or tenderness over the calvarium. NECK: Supple. IMAGING: I reviewed a CT scan of the head at the time of his admission. On that study, there is a small acute subdural on the right and a slightly larger chronic subdural on the left. The right-sided subdural which is more acute does have chronic components within it, but it appears much newer than the subdural on the left. There was no significant shift. Subdurals are largely frontal. IMPRESSION: Marfan disease with cardiac replacement, on Coumadin. At the time of his admission, the INR was greater than 4. There are bilateral subdural hematomas without significant shift. The right-sided subdural appears acute and is largely frontal. The left-sided subdural is slightly larger and there are chronic components with some acute blood in the frontoparietal region. There is some mass effect on the cortical surfaces especially on the left side, but without significant midline shift. INR at time of admission was greater than 4. INR this morning is greater than 2. Bilateral subdural hematomas in a patient with valve replacements on chronic Coumadin/anticoagulation. RECOMMENDATIONS: We will need to reverse the anticoagulation at least for the short term. If his sensorium does not clear, consideration will have to be made for evacuation of the slightly larger left-sided subdural which is more chronic in appearance and which can be performed through simple nela hole evacuation. Optimally, his INR can be brought back into a therapeutic range and he can be followed, but this assumes that his mentation will improve. I will continue to follow him. I appreciate asking us to see him. CONNIE ESTEVEZ MD DR: DEV/cyndi JOB#: [id number] / [id number] DONTA
[2016-06-15] MEDS ORDERED: GLYCOPYRROLATE 1 MG/5 ML VIAL. ONE (13:39)
[2016-06-15] MEDS ORDERED: NEOSTIGMINE METHYLSULFATE 5 MG/5 ML SYRINGE. ONE (13:39)
[2016-06-15] MEDS ORDERED: SEVOFLURANE 61 TO 120 MINUTES. IH ONE (13:55)
[2016-06-15] MEDS ORDERED: SEVOFLURANE 31 TO 60 MINUTES. IH ONE (13:55)
--- NOTE | 2016-06-15 16:54 | PDOC ---
Provider Note Provider Note On unit to see patient; presently in OR for nela hole of left subdural hematoma. Record request re-faxed to [facility]. Will see in am. YANETH FERRIS APRN Jun 15, 2016 16:54
--- NOTE | 2016-06-15 19:28 | OP ---
DATE OF SURGERY: 06/15/2016 PREOPERATIVE DIAGNOSIS: Chronic subdural hematoma, left frontoparietal. POSTOPERATIVE DIAGNOSIS: Chronic subdural hematoma, left frontoparietal. OPERATION PERFORMED: Nela hole evacuation of chronic subdural hematoma with placement of drain. SURGEON: Simon Estevez M.D. OPERATIVE INDICATIONS: The patient is a very pleasant 50-year-old man who has Marfan syndrome. He has had valve replacement surgery and is on chronic anticoagulation with Coumadin. He presented to the Emergency Room with a relatively acute subdural over the right frontal region, which was fairly small and a larger chronic subdural hematoma or mixed density hematoma on the left side over the left frontoparietal region. He was confused. His INR was greater than 4. We brought his INR down to 1.9. I have been giving fresh frozen plasma and I felt that at this point it would be most prudent to take him to the operating room and evacuate the chronic subdural hematoma to see if we could improve his confusion, help him neurologically and continue to follow for the remaining subdural on the right side. I spoke with his brother about the surgery in detail. He understood the surgery and risks. I discussed with the patient; however, the patient was confused. We had consent. We went forward with surgery. DESCRIPTION OF PROCEDURE: Following general endotracheal anesthesia, the patient was positioned supine on the operating room table. The head was turned 90 degrees to the right and a roll was placed beneath the left shoulder. His calvarium was clipped, prepped and draped in the standard fashion. MARIVEL hose and AV impulse boots were applied for DVT prophylaxis. Ancef 2 g was given less than 1 hour prior to initiation of the surgery. Small linear incision at the anterior margin of the hair line was made directly over the subdural hematoma over the left posterior frontal region. I dissected down through the skin and subcutaneous tissue and I obtained hemostasis with bipolar cautery, reflected the periosteum, again worked to obtain a continuous hemostasis and placed a self-retaining retractor. I brought in the drill and placed a nela hole, obtained hemostasis along the bone edges and then opened the dura in a cruciate fashion. There was a membrane, which I opened and there was spontaneous egress of crankcase colored chronic subdural. I irrigated copiously with warm saline and placed a small round drain, which I brought out through a separate stab incision and secured with 3-0 nylon. I did use a micro plate to cover the majority of the nela hole and secured this with 4 mm screws and then I closed the wound in layers with absorbable suture and skin was closed with skin navid. The operation went very well and the patient was taken back to recovery room in improved neurologic condition. I felt the surgery went very well. SIMON ESTEVEZ MD DR: DEV/cyndi JOB#: [id number] / [id number] DONTA
--- NOTE | 2016-06-15 20:46 | PDOC ---
PROGRESS NOTES Chief Complaint Chief Complaint cc: headaches - Serotherapeutic INR, improving, - Bilateral subdural hematoma - Headaches better - Confusion - Marfan's syndrome with hx of valve replacements and eye surgeries - Left eye blindness - HTN stable, -Hypokalemia Plan NS planning for Gema hole today, FFP now and surgery later today hold Coumadin ICU care, labs reviwed, clinically better, no acute symptoms replace potassium BP well controlled. History of Present Illness History of Present Illness seen this AM IN ICU doing better no fever no headaches, Vitals Vitals Vital Signs Date Time Temp Pulse Resp B/P Pulse Ox O2 Delivery O2 Flow Rate FiO2 06/15/16 19:33 90 14 118/65 98 Nasal Cannula 2.0 06/15/16 19:02 97.6 97.6 Physical Exam Physical Exam Eyes: Cloudy opacities, evidence of previous surgery General: Cooperative, No acute distress, Other (oriented to self) Heart: Regular rate Lungs: Clear, Other (No wheezes or crackles) Abdomen: Normal bowel sounds Extremities: No clubbing, No cyanosis, No edema Skin: No rashes, No breakdown, No significant lesion Labs LABS Laboratory Tests Test 06/15/16 05:30 White Blood Count 7.0x10^3/uL (4.0-11.0) Red Blood Count 4.53x10^6/uL (4.30-5.70) Hemoglobin 13.5g/dL (13.0-17.5) Hematocrit 40.9% (39.0-53.0) Mean Corpuscular Volume 90fL (79-100) Mean Corpuscular Hemoglobin 30pg (25-35) Mean Corpuscular Hemoglobin Concent 33g/dL (31-37) Red Cell Distribution Width 13.3% (11.5-14.5) Platelet Count 171x10^3/uL (140-400) Neutrophils (%) (Auto) 64% (31-73) Lymphocytes (%) (Auto) 21% (24-48) Monocytes (%) (Auto) 11% (0-9) Eosinophils (%) (Auto) 4% (0-3) Basophils (%) (Auto) 1% (0-3) Neutrophils # (Auto) 4.4x10^3uL (1.8-7.7) Lymphocytes # (Auto) 1.5x10^3/uL (1.0-4.8) Monocytes # (Auto) 0.7x10^3/uL (0.0-1.1) Eosinophils # (Auto) 0.3x10^3/uL (0.0-0.7) Basophils # (Auto) 0.1x10^3/uL (0.0-0.2) Prothrombin Time 20.6SEC (11.7-14.0) Prothromb Time International Ratio 1.9 (0.8-1.1) Sodium Level 139mmol/L (136-145) Potassium Level 3.3mmol/L (3.5-5.1) Chloride Level 104mmol/L (98-107) Carbon Dioxide Level 28mmol/L (21-32) Anion Gap 7 (6-14) Blood Urea Nitrogen 8mg/dL (8-26) Creatinine 0.8mg/dL (0.7-1.3) Estimated GFR (Cockcroft-Gault) 102.3 Glucose Level 82mg/dL (70-99) Calcium Level 8.7mg/dL (8.5-10.1) Assessment and Plan Assessmemt and Plan Problems Medical Problems: (1) Subdural hematoma Status: Acute (2) Supratherapeutic INR Status: Acute Problems: Comment Review of Relevant I have reviewed the following items jordy (where applicable) has been applied. Labs Laboratory Tests Test 06/13/16 23:00 06/14/16 08:30 06/15/16 05:30 Prothrombin Time 25.2SEC (11.7-14.0) 22.9SEC (11.7-14.0) 20.6SEC (11.7-14.0) Prothromb Time International Ratio 2.5 (0.8-1.1) 2.2 (0.8-1.1) 1.9 (0.8-1.1) White Blood Count 7.4x10^3/uL (4.0-11.0) 7.0x10^3/uL (4.0-11.0) Red Blood Count 4.44x10^6/uL (4.30-5.70) 4.53x10^6/uL (4.30-5.70) Hemoglobin 13.4g/dL (13.0-17.5) 13.5g/dL (13.0-17.5) Hematocrit 40.2% (39.0-53.0) 40.9% (39.0-53.0) Mean Corpuscular Volume 90fL (79-100) 90fL (79-100) Mean Corpuscular Hemoglobin 30pg (25-35) 30pg (25-35) Mean Corpuscular Hemoglobin Concent 33g/dL (31-37) 33g/dL (31-37) Red Cell Distribution Width 13.6% (11.5-14.5) 13.3% (11.5-14.5) Platelet Count 157x10^3/uL (140-400) 171x10^3/uL (140-400) Neutrophils (%) (Auto) 76% (31-73) 64% (31-73) Lymphocytes (%) (Auto) 11% (24-48) 21% (24-48) Monocytes (%) (Auto) 9% (0-9) 11% (0-9) Eosinophils (%) (Auto) 2% (0-3) 4% (0-3) Basophils (%) (Auto) 1% (0-3) 1% (0-3) Neutrophils # (Auto) 5.7x10^3uL (1.8-7.7) 4.4x10^3uL (1.8-7.7) Lymphocytes # (Auto) 0.8x10^3/uL (1.0-4.8) 1.5x10^3/uL (1.0-4.8) Monocytes # (Auto) 0.7x10^3/uL (0.0-1.1) 0.7x10^3/uL (0.0-1.1) Eosinophils # (Auto) 0.2x10^3/uL (0.0-0.7) 0.3x10^3/uL (0.0-0.7) Basophils # (Auto) 0.1x10^3/uL (0.0-0.2) 0.1x10^3/uL (0.0-0.2) Sodium Level 143mmol/L (136-145) 139mmol/L (136-145) Potassium Level 3.6mmol/L (3.5-5.1) 3.3mmol/L (3.5-5.1) Chloride Level 108mmol/L (98-107) 104mmol/L (98-107) Carbon Dioxide Level 30mmol/L (21-32) 28mmol/L (21-32) Anion Gap 5 (6-14) 7 (6-14) Blood Urea Nitrogen 16mg/dL (8-26) 8mg/dL (8-26) Creatinine 0.8mg/dL (0.7-1.3) 0.8mg/dL (0.7-1.3) Estimated GFR (Cockcroft-Gault) 102.3 102.3 Glucose Level 95mg/dL (70-99) 82mg/dL (70-99) Calcium Level 8.3mg/dL (8.5-10.1) 8.7mg/dL (8.5-10.1) Laboratory Tests Test 06/15/16 05:30 White Blood Count 7.0x10^3/uL (4.0-11.0) Red Blood Count 4.53x10^6/uL (4.30-5.70) Hemoglobin 13.5g/dL (13.0-17.5) Hematocrit 40.9% (39.0-53.0) Mean Corpuscular Volume 90fL (79-100) Mean Corpuscular Hemoglobin 30pg (25-35) Mean Corpuscular Hemoglobin Concent 33g/dL (31-37) Red Cell Distribution Width 13.3% (11.5-14.5) Platelet Count 171x10^3/uL (140-400) Neutrophils (%) (Auto) 64% (31-73) Lymphocytes (%) (Auto) 21% (24-48) Monocytes (%) (Auto) 11% (0-9) Eosinophils (%) (Auto) 4% (0-3) Basophils (%) (Auto) 1% (0-3) Neutrophils # (Auto) 4.4x10^3uL (1.8-7.7) Lymphocytes # (Auto) 1.5x10^3/uL (1.0-4.8) Monocytes # (Auto) 0.7x10^3/uL (0.0-1.1) Eosinophils # (Auto) 0.3x10^3/uL (0.0-0.7) Basophils # (Auto) 0.1x10^3/uL (0.0-0.2) Prothrombin Time 20.6SEC (11.7-14.0) Prothromb Time International Ratio 1.9 (0.8-1.1) Sodium Level 139mmol/L (136-145) Potassium Level 3.3mmol/L (3.5-5.1) Chloride Level 104mmol/L (98-107) Carbon Dioxide Level 28mmol/L (21-32) Anion Gap 7 (6-14) Blood Urea Nitrogen 8mg/dL (8-26) Creatinine 0.8mg/dL (0.7-1.3) Estimated GFR (Cockcroft-Gault) 102.3 Glucose Level 82mg/dL (70-99) Calcium Level 8.7mg/dL (8.5-10.1) Microbiology 06/13/16 Urine Culture - Preliminary, Resulted 06/13/16 Urine Culture Result 1 ([facility]) - Preliminary, Resulted Medications Current Medications Sodium Chloride (Iv Sodium Chloride 0.9% 1000ml Bag) 1,000 ml @ 100 mls/hr 1X ONCE IV Last administered on 06/13/16 13:45; Start 06/13/16 at 13:45; Stop at 23:44; Status DC Phytonadione (Mephyton) 10 mg 1X ONCE PO Last administered on 06/13/16 15:03; Start 06/13/16 at 15:00; Stop 06/13/16 at 15:01; Status DC Ondansetron HCl 4 mg 4 mg PRN Q8HRS PRN IV NAUSEA/VOMITING; Start 06/13/16 at 16 :15; Stop 06/14/16 at 16:14; Status DC Sodium Chloride (Iv Sodium Chloride 0.9% 1000ml Bag) 1,000 ml @ 100 mls/hr Q10H IV Last administered on 06/14/16 05:49; Start 06/13/16 at 16:10; Stop at 13:20; Status DC Morphine Sulfate 2 mg 1X ONCE IV Last administered on 06/13/16 18:08; Start at 18:30; Stop 06/13/16 at 18:31; Status DC Oxycodone/ Acetaminophen (Percocet 5/325) 1 tab PRN Q4HRS PRN PO PAIN Last administered on 06/14/16 08:32; Start 06/13/16 at 18:00 Oxycodone/ Acetaminophen (Percocet 5/325) 2 tab PRN Q4HRS PRN PO PAIN; Start at 18:00 Metoprolol Succinate (Toprol Xl) 25 mg DAILY PO Last administered on 06/15/16 11:23; Start 06/14/16 at 09:00 Lorazepam 2 mg 2 mg PRN Q4HRS PRN IV ANXIETY / AGITATION; Start 06/13/16 at 19: 45 Levetiracetam 500 mg/Sodium Chloride 105 ml @ 400 mls/hr PRN Q12HRS PRN IV SEIZURES; Start 06/13/16 at 19:45 Potassium Chloride/Sodium Chloride (KCl 20 Meq-0.45% Nacl) 1,000 ml @ 100 mls/ hr Q10H IV Last administered on 06/15/16 08:01; Start 06/14/16 at 13:30 Warfarin Sodium (Coumadin Per Pharmacy) 1 each PRN DAILY PRN MC SEE COMMENTS Last administered on 06/14/16 16:23; Start 06/14/16 at 16:00 Warfarin Sodium 2.5 mg 2.5 mg 1X WARF ONCE PO ; Start 06/14/16 at 17:00; Stop at 17:01; Status Cancel Bacitracin/Sodium Chloride (Iv Sodium Chloride 0.9% 1000ml Bag) 1,000 ml @ 1, 000 mls/hr 1X PERIOP ONCE IRR Last administered on 06/15/16 12:41; Start at 10:00; Stop 06/15/16 at 10:59; Status DC Ondansetron HCl (Zofran) 4 mg PRN Q6HRS PRN IV Nausea; Start 06/15/16 at 10:00; Stop 06/16/16 at 09:59 Fentanyl Citrate (Fentanyl 2ml Vial) 25 mcg PRN Q5MIN PRN IV MILD PAIN; Start 06/15/16 at 10:00; Stop 06/16/16 at 09:59 Fentanyl Citrate (Fentanyl 2ml Vial) 50 mcg PRN Q5MIN PRN IV MODERATE PAIN; Start 06/15/16 at 10:00; Stop 06/16/16 at 09:59 Morphine Sulfate 1 mg 1 mg PRN Q10MIN PRN IV SEVERE PAIN; Start 06/15/16 at 10: 00; Stop 06/16/16 at 09:59 Lactated Ringer's (Iv Lactated Ringers) 1,000 ml @ 30 mls/hr Q24H IV ; Start at 09:47; Stop 06/15/16 at 21:46 Lidocaine HCl 2 ml 1X PRN PRN ID IV START; Start 06/15/16 at 10:00; Stop at 09:59 Hydromorphone HCl (Dilaudid) 0.5 mg PRN Q10MIN PRN IV SEV PAIN,Second choice; Start 06/15/16 at 10:00; Stop 06/16/16 at 09:59 Prochlorperazine Edisylate (Compazine) 5 mg PACU PRN PRN IV NAUSEA; Start at 10:00; Stop 06/16/16 at 09:59 Phytonadione (Vitamin K) 2 mg 1X ONCE SQ Last administered on 06/15/16t 11:21; Start 06/15/16 at 09:45; Stop 06/15/16 at 09:57; Status DC Dexamethasone Sodium Phosphate (Decadron) 20 mg STK-MED ONCE .ROUTE ; Start 06/15 at 10:26; Stop 06/15/16 at 10:27; Status DC Ondansetron HCl (Zofran) 4 mg STK-MED ONCE .ROUTE ; Start 06/15/16 at 10:26; Stop 06/15/16 at 10:27; Status DC Rocuronium [place] 50 mg 50 mg STK-MED ONCE .ROUTE ; Start 06/15/16 at 10:26; Stop 06/15/16 at 10:27; Status DC Propofol (Diprivan) 20 ml @ As Directed STK-MED ONCE IV ; Start 06/15/16 at 10:26 ; Stop 06/15/16 at 10:27; Status DC Lidocaine HCl 100 mg STK-MED ONCE .ROUTE ; Start 06/15/16 at 10:26; Stop 06/15/16 at 10:27; Status DC Fentanyl Citrate (Fentanyl 2ml Vial) 100 mcg STK-MED ONCE .ROUTE ; Start at 10:26; Stop 06/15/16 at 10:27; Status DC Thrombin 20,000 unit STK-MED ONCE TP Last administered on 06/15/16 12:41; Start 06/15/16 at 10:47; Stop 06/15/16 at 10:48; Status DC Gelatin (Gelfoam Size 100) 1 each STK-MED ONCE .ROUTE Last administered on 06/15 12:41; Start 06/15/16 at 10:48; Stop 06/15/16 at 10:49; Status DC Bupivacaine HCl/ Epinephrine Bitart (Sensorcaine-Epi 0.25%-1:[id number] Mpf) 30 ml STK-MED ONCE .ROUTE Last administered on 06/15/16 12:41; Start 06/15/16 at 10:48 ; Stop 06/15/16 at 10:49; Status DC Cellulose 1 each STK-MED ONCE .ROUTE ; Start 06/15/16 at 10:49; Stop 06/15/16 at 10:50; Status DC Potassium Chloride 20 meq 20 meq 1X ONCE PO Last administered on 06/15/16 11: 21; Start 06/15/16 at 11:15; Stop 06/15/16 at 11:16; Status DC Cefazolin Sodium/ Dextrose (Ancef 2gm Premix) 50 ml @ 100 mls/hr 1X PREOP PRN IV PER PROTOCOL Last administered on 06/15/16 12:56; Start 06/16/16 at 06:00; Stop 06/16/16 at 18:00 Ephedrine Sulfate 50 mg STK-MED ONCE IV ; Start 06/15/16 at 13:04; Stop 06/15/16 at 13:05; Status DC Glycopyrrolate (Robinul) 1 mg STK-MED ONCE .ROUTE ; Start 06/15/16 at 13:39; Stop 06/15/16 at 13:40; Status DC Neostigmine Methylsulfate 5 mg STK-MED ONCE .ROUTE ; Start 06/15/16 at 13:39; Stop 06/15/16 at 13:40; Status DC Fentanyl Citrate (Fentanyl 2ml Vial) 100 mcg STK-MED ONCE .ROUTE ; Start at 13:55; Stop 06/15/16 at 13:56; Status DC Sevoflurane (Ultane) 30 ml STK-MED ONCE IH ; Start 06/15/16 at 13:55; Stop at 13:56; Status DC Sevoflurane (Ultane) 60 ml STK-MED ONCE IH ; Start 06/15/16 at 13:55; Stop at 13:56; Status DC Warfarin Sodium (Coumadin - No Dose Today) 1 each 1X WARF ONCE MC Last administered on 06/15/16t 16:00; Start 06/15/16 at 16:00; Stop 06/15/16 at 16:01; Status DC Active Scripts Active Reported Coumadin (Warfarin Sodium) 5 Mg Tablet 1 Tab PO DAILY Metoprolol Succinate ( Xl ) (Metoprolol Succinate) 25 Mg Tab.er.24h 25 Mg PO DAILY Vitals/I & O Vital Sign - Last 24 Hours 06/14/16 06/14/16 06/14/16 06/14/16 21:15 22:00 23:00 23:59 Pulse 67 64 67 Resp 16 16 18 B/P 142/86 128/79 130/75 Pulse Ox 100 100 98 O2 Delivery Room Air Room Air Room Air Room Air 06/14/16 06/15/16 06/15/16 06/15/16 23:59 01:00 02:00 03:00 Temp 97.6 97.6 Pulse 71 75 60 63 Resp 16 18 18 B/P 132/90 113/65 99/46 91/55 Pulse Ox 98 100 99 98 O2 Delivery Room Air Room Air Room Air Room Air 06/15/16 06/15/16 06/15/16 06/15/16 04:00 04:00 05:00 06:00 Temp 98.9 98.9 Pulse 66 81 66 Resp 16 16 16 B/P 91/51 104/65 119/81 Pulse Ox 99 99 97 O2 Delivery Room Air Room Air Room Air Room Air 06/15/16 06/15/16 06/15/16 06/15/16 08:00 08:00 09:00 10:00 Temp 97.8 97.8 Pulse 85 68 67 Resp 16 18 18 B/P 128/85 95/60 105/79 Pulse Ox 99 99 98 O2 Delivery Room Air Room Air Room Air Room Air 06/15/16 06/15/16 06/15/16 06/15/16 11:00 11:23 12:00 14:10 Temp 98.9 97.7 98.9 97.7 Pulse 75 89 69 Resp 18 18 B/P 117/80 117/76 117/63 Pulse Ox 100 O2 Delivery Room Air Simple Mask 06/15/16 06/15/16 06/15/16 06/15/16 14:27 14:35 14:48 15:09 Pulse 69 69 75 Resp 16 16 16 B/P 111/62 109/61 103/61 Pulse Ox 100 100 98 O2 Delivery Face Tent Nasal Cannula Nasal Cannula Nasal Cannula O2 Flow Rate 3.0 2.0 2.0 06/15/16 06/15/16 06/15/16 06/15/16 15:58 16:03 17:04 18:03 Temp 97.5 97.8 97.5 97.8 Pulse 75 77 87 Resp 16 18 18 B/P 115/66 114/67 122/72 Pulse Ox 98 99 100 O2 Delivery Nasal Cannula Nasal Cannula Nasal Cannula Nasal Cannula O2 Flow Rate 2.0 2.0 2.0 2.0 06/15/16 06/15/16 19:02 19:33 Temp 97.6 97.6 Pulse 88 90 Resp 18 14 B/P 110/62 118/65 Pulse Ox 99 98 O2 Delivery Nasal Cannula Nasal Cannula O2 Flow Rate 2.0 2.0 Intake and Output 06/14/16 06/14/16 06/15/16 15:00 23:00 07:00 Intake Total 1600 ml 792 ml 0 ml Output Total 450 ml 420 ml Balance 1150 ml 372 ml 0 ml CHRIS HARDIN MD Jun 15, 2016 20:46
[2016-06-15] MEDS: OXYCODONE/APAP 5/325 TABLET. PO PRN (23:18)
[2016-06-16] VITALS (20 sets, daily range): BP systolic 84–130; BP diastolic 58–90
[2016-06-16] MEDS ORDERED: CEFAZOLIN 2GM PREMIX 50 ML IV PRN (06:00)
[2016-06-16 06:19] LABS: BASO % 0 % (0-3); EOS % 0 % (0-3); HEMATOCRIT 35.6 % (39.0-53.0); HEMOGLOBIN 11.9 g/dL (13.0-17.5); LYMPH # 0.8 x10^3/uL (1.0-4.8); LYMPH % 9 % (24-48); MEAN CORPUSCULAR HEMOGLOBIN 30 pg (25-35); MEAN CORPUSCULAR HGB CONC 34 g/dL (31-37); MEAN CORPUSCULAR VOLUME 90 fL (79-100); MONO % 12 % (0-9); NEUT % 79 % (31-73); PLATELET COUNT 167 x10^3/uL (140-400); RED BLOOD COUNT 3.98 x10^6/uL (4.30-5.70); RED CELL DISTRIBUTION WIDTH 13.3 % (11.5-14.5); WHITE BLOOD COUNT 8.7 x10^3/uL (4.0-11.0)
[2016-06-16 06:33] LABS: CALCIUM 8.6 mg/dL (8.5-10.1); CREATININE 0.8 mg/dL (0.7-1.3); GFR 102.3; POTASSIUM 4.1 mmol/L (3.5-5.1)
[2016-06-16 07:06] LABS: INR 1.4 (0.8-1.1)
[2016-06-16] MEDS: POTASSIUM CL 20MEQ-0.45% NACL 1,000 ML IV SCH ×2 (08:51→17:36)
[2016-06-16] MEDS: METOPROLOL SUCC 24HR ER 25 MG TAB.ER.24H. PO SCH (08:51)
[2016-06-16] MEDS: OXYCODONE/APAP 5/325 TABLET. PO PRN ×2 (08:52→20:53)
--- NOTE | 2016-06-16 09:33 | PDOC ---
PROGRESS NOTES Subjective Subjective awake, alert mild headache but improved Objective Objective Vital Signs Date Time Temp Pulse Resp B/P Pulse Ox O2 Delivery O2 Flow Rate FiO2 06/16/16 08:52 18 98 Room Air 06/16/16 08:51 88 96/58 06/16/16 05:00 98.4 98.4 06/16/16 01:00 2.0 Intake and Output 06/16/16 07:00 Intake Total 3791 ml Output Total 2319 ml Balance 1472 ml Intake Oral 995 ml IV Total 2348 ml Blood Product IV Normal Saline Flush 448 ml Output Urine Total 2260 ml Drainage Total 59 ml # Voids 1 Physical Exam General: Alert, Cooperative, No acute distress Neuro: Normal speech, Other (MIRANDA) Assessment Assessment Problems Medical Problems: (1) Subdural hematoma Status: Acute (2) Supratherapeutic INR Status: Acute Plan Plan of Care INR 1.4 dc drain flat for 2 hours then may transfer to floor PT SCDS resume AC tomorrow Comment Review of Relevant I have reviewed the following items jordy (where applicable) has been applied. Labs Laboratory Tests Test 06/15/16 05:30 06/16/16 05:46 White Blood Count 7.0x10^3/uL (4.0-11.0) 8.7x10^3/uL (4.0-11.0) Red Blood Count 4.53x10^6/uL (4.30-5.70) 3.98x10^6/uL (4.30-5.70) Hemoglobin 13.5g/dL (13.0-17.5) 11.9g/dL (13.0-17.5) Hematocrit 40.9% (39.0-53.0) 35.6% (39.0-53.0) Mean Corpuscular Volume 90fL (79-100) 90fL (79-100) Mean Corpuscular Hemoglobin 30pg (25-35) 30pg (25-35) Mean Corpuscular Hemoglobin Concent 33g/dL (31-37) 34g/dL (31-37) Red Cell Distribution Width 13.3% (11.5-14.5) 13.3% (11.5-14.5) Platelet Count 171x10^3/uL (140-400) 167x10^3/uL (140-400) Neutrophils (%) (Auto) 64% (31-73) 79% (31-73) Lymphocytes (%) (Auto) 21% (24-48) 9% (24-48) Monocytes (%) (Auto) 11% (0-9) 12% (0-9) Eosinophils (%) (Auto) 4% (0-3) 0% (0-3) Basophils (%) (Auto) 1% (0-3) 0% (0-3) Neutrophils # (Auto) 4.4x10^3uL (1.8-7.7) 6.9x10^3uL (1.8-7.7) Lymphocytes # (Auto) 1.5x10^3/uL (1.0-4.8) 0.8x10^3/uL (1.0-4.8) Monocytes # (Auto) 0.7x10^3/uL (0.0-1.1) 1.1x10^3/uL (0.0-1.1) Eosinophils # (Auto) 0.3x10^3/uL (0.0-0.7) 0.0x10^3/uL (0.0-0.7) Basophils # (Auto) 0.1x10^3/uL (0.0-0.2) 0.0x10^3/uL (0.0-0.2) Prothrombin Time 20.6SEC (11.7-14.0) 16.0SEC (11.7-14.0) Prothromb Time International Ratio 1.9 (0.8-1.1) 1.4 (0.8-1.1) Sodium Level 139mmol/L (136-145) 139mmol/L (136-145) Potassium Level 3.3mmol/L (3.5-5.1) 4.1mmol/L (3.5-5.1) Chloride Level 104mmol/L (98-107) 104mmol/L (98-107) Carbon Dioxide Level 28mmol/L (21-32) 27mmol/L (21-32) Anion Gap 7 (6-14) 8 (6-14) Blood Urea Nitrogen 8mg/dL (8-26) 13mg/dL (8-26) Creatinine 0.8mg/dL (0.7-1.3) 0.8mg/dL (0.7-1.3) Estimated GFR (Cockcroft-Gault) 102.3 102.3 Glucose Level 82mg/dL (70-99) 122mg/dL (70-99) Calcium Level 8.7mg/dL (8.5-10.1) 8.6mg/dL (8.5-10.1) Laboratory Tests Test 06/16/16 05:46 White Blood Count 8.7x10^3/uL (4.0-11.0) Red Blood Count 3.98x10^6/uL (4.30-5.70) Hemoglobin 11.9g/dL (13.0-17.5) Hematocrit 35.6% (39.0-53.0) Mean Corpuscular Volume 90fL (79-100) Mean Corpuscular Hemoglobin 30pg (25-35) Mean Corpuscular Hemoglobin Concent 34g/dL (31-37) Red Cell Distribution Width 13.3% (11.5-14.5) Platelet Count 167x10^3/uL (140-400) Neutrophils (%) (Auto) 79% (31-73) Lymphocytes (%) (Auto) 9% (24-48) Monocytes (%) (Auto) 12% (0-9) Eosinophils (%) (Auto) 0% (0-3) Basophils (%) (Auto) 0% (0-3) Neutrophils # (Auto) 6.9x10^3uL (1.8-7.7) Lymphocytes # (Auto) 0.8x10^3/uL (1.0-4.8) Monocytes # (Auto) 1.1x10^3/uL (0.0-1.1) Eosinophils # (Auto) 0.0x10^3/uL (0.0-0.7) Basophils # (Auto) 0.0x10^3/uL (0.0-0.2) Prothrombin Time 16.0SEC (11.7-14.0) Prothromb Time International Ratio 1.4 (0.8-1.1) Sodium Level 139mmol/L (136-145) Potassium Level 4.1mmol/L (3.5-5.1) Chloride Level 104mmol/L (98-107) Carbon Dioxide Level 27mmol/L (21-32) Anion Gap 8 (6-14) Blood Urea Nitrogen 13mg/dL (8-26) Creatinine 0.8mg/dL (0.7-1.3) Estimated GFR (Cockcroft-Gault) 102.3 Glucose Level 122mg/dL (70-99) Calcium Level 8.6mg/dL (8.5-10.1) Microbiology 06/13/16 Urine Culture - Final, Complete 06/13/16 Urine Culture Result 1 (GLENN) - Final, Complete Medications Current Medications Sodium Chloride (Iv Sodium Chloride 0.9% 1000ml Bag) 1,000 ml @ 100 mls/hr 1X ONCE IV Last administered on 06/13/16 13:45; Start 06/13/16 at 13:45; Stop at 23:44; Status DC Phytonadione (Mephyton) 10 mg 1X ONCE PO Last administered on 06/13/16 15:03; Start 06/13/16 at 15:00; Stop 06/13/16 at 15:01; Status DC Ondansetron HCl 4 mg 4 mg PRN Q8HRS PRN IV NAUSEA/VOMITING; Start 06/13/16 at 16 :15; Stop 06/14/16 at 16:14; Status DC Sodium Chloride (Iv Sodium Chloride 0.9% 1000ml Bag) 1,000 ml @ 100 mls/hr Q10H IV Last administered on 06/14/16 05:49; Start 06/13/16 at 16:10; Stop at 13:20; Status DC Morphine Sulfate 2 mg 1X ONCE IV Last administered on 06/13/16 18:08; Start at 18:30; Stop 06/13/16 at 18:31; Status DC Oxycodone/ Acetaminophen (Percocet 5/325) 1 tab PRN Q4HRS PRN PO PAIN Last administered on 06/15/16 23:18; Start 06/13/16 at 18:00 Oxycodone/ Acetaminophen (Percocet 5/325) 2 tab PRN Q4HRS PRN PO PAIN Last administered on 06/16/16 08:52; Start 06/13/16 at 18:00 Metoprolol Succinate (Toprol Xl) 25 mg DAILY PO Last administered on 06/16/16 08:51; Start 06/14/16 at 09:00 Lorazepam 2 mg 2 mg PRN Q4HRS PRN IV ANXIETY / AGITATION; Start 06/13/16 at 19: 45 Levetiracetam 500 mg/Sodium Chloride 105 ml @ 400 mls/hr PRN Q12HRS PRN IV SEIZURES; Start 06/13/16 at 19:45 Potassium Chloride/Sodium Chloride (KCl 20 Meq-0.45% Nacl) 1,000 ml @ 100 mls/ hr Q10H IV Last administered on 06/16/16 08:51; Start 06/14/16 at 13:30 Warfarin Sodium (Coumadin Per Pharmacy) 1 each PRN DAILY PRN MC SEE COMMENTS Last administered on 06/14/16 16:23; Start 06/14/16 at 16:00 Warfarin Sodium 2.5 mg 2.5 mg 1X WARF ONCE PO ; Start 06/14/16 at 17:00; Stop at 17:01; Status Cancel Bacitracin/Sodium Chloride (Iv Sodium Chloride 0.9% 1000ml Bag) 1,000 ml @ 1, 000 mls/hr 1X PERIOP ONCE IRR Last administered on 06/15/16 12:41; Start at 10:00; Stop 06/15/16 at 10:59; Status DC Ondansetron HCl (Zofran) 4 mg PRN Q6HRS PRN IV Nausea; Start 06/15/16 at 10:00; Stop 06/16/16 at 09:59 Fentanyl Citrate (Fentanyl 2ml Vial) 25 mcg PRN Q5MIN PRN IV MILD PAIN; Start 06/15/16 at 10:00; Stop 06/16/16 at 09:59 Fentanyl Citrate (Fentanyl 2ml Vial) 50 mcg PRN Q5MIN PRN IV MODERATE PAIN; Start 06/15/16 at 10:00; Stop 06/16/16 at 09:59 Morphine Sulfate 1 mg 1 mg PRN Q10MIN PRN IV SEVERE PAIN; Start 06/15/16 at 10: 00; Stop 06/16/16 at 09:59 Lactated Ringer's (Iv Lactated Ringers) 1,000 ml @ 30 mls/hr Q24H IV ; Start at 09:47; Stop 06/15/16 at 21:46; Status DC Lidocaine HCl 2 ml 1X PRN PRN ID IV START; Start 06/15/16 at 10:00; Stop at 09:59 Hydromorphone HCl (Dilaudid) 0.5 mg PRN Q10MIN PRN IV SEV PAIN,Second choice; Start 06/15/16 at 10:00; Stop 06/16/16 at 09:59 Prochlorperazine Edisylate (Compazine) 5 mg PACU PRN PRN IV NAUSEA; Start at 10:00; Stop 06/16/16 at 09:59 Phytonadione (Vitamin K) 2 mg 1X ONCE SQ Last administered on 06/15/16t 11:21; Start 06/15/16 at 09:45; Stop 06/15/16 at 09:57; Status DC Dexamethasone Sodium Phosphate (Decadron) 20 mg STK-MED ONCE .ROUTE ; Start 06/15 at 10:26; Stop 06/15/16 at 10:27; Status DC Ondansetron HCl (Zofran) 4 mg STK-MED ONCE .ROUTE ; Start 06/15/16 at 10:26; Stop 06/15/16 at 10:27; Status DC Rocuronium [place] 50 mg 50 mg STK-MED ONCE .ROUTE ; Start 06/15/16 at 10:26; Stop 06/15/16 at 10:27; Status DC Propofol (Diprivan) 20 ml @ As Directed STK-MED ONCE IV ; Start 06/15/16 at 10:26 ; Stop 06/15/16 at 10:27; Status DC Lidocaine HCl 100 mg STK-MED ONCE .ROUTE ; Start 06/15/16 at 10:26; Stop 06/15/16 at 10:27; Status DC Fentanyl Citrate (Fentanyl 2ml Vial) 100 mcg STK-MED ONCE .ROUTE ; Start at 10:26; Stop 06/15/16 at 10:27; Status DC Thrombin 20,000 unit STK-MED ONCE TP Last administered on 06/15/16t 12:41; Start 06/15/16 at 10:47; Stop 06/15/16 at 10:48; Status DC Gelatin (Gelfoam Size 100) 1 each STK-MED ONCE .ROUTE Last administered on 06/15 12:41; Start 06/15/16 at 10:48; Stop 06/15/16 at 10:49; Status DC Bupivacaine HCl/ Epinephrine Bitart (Sensorcaine-Epi 0.25%-1:926905 Mpf) 30 ml STK-MED ONCE .ROUTE Last administered on 06/15/16 12:41; Start 06/15/16 at 10:48 ; Stop 06/15/16 at 10:49; Status DC Cellulose 1 each STK-MED ONCE .ROUTE ; Start 06/15/16 at 10:49; Stop 06/15/16 at 10:50; Status DC Potassium Chloride 20 meq 20 meq 1X ONCE PO Last administered on 06/15/16 11: 21; Start 06/15/16 at 11:15; Stop 06/15/16 at 11:16; Status DC Cefazolin Sodium/ Dextrose (Ancef 2gm Premix) 50 ml @ 100 mls/hr 1X PREOP PRN IV PER PROTOCOL Last administered on 06/15/16 12:56; Start 06/16/16 at 06:00; Stop 06/16/16 at 18:00 Ephedrine Sulfate 50 mg STK-MED ONCE IV ; Start 06/15/16 at 13:04; Stop 06/15/16 at 13:05; Status DC Glycopyrrolate (Robinul) 1 mg STK-MED ONCE .ROUTE ; Start 06/15/16 at 13:39; Stop 06/15/16 at 13:40; Status DC Neostigmine Methylsulfate 5 mg STK-MED ONCE .ROUTE ; Start 06/15/16 at 13:39; Stop 06/15/16 at 13:40; Status DC Fentanyl Citrate (Fentanyl 2ml Vial) 100 mcg STK-MED ONCE .ROUTE ; Start at 13:55; Stop 06/15/16 at 13:56; Status DC Sevoflurane (Ultane) 30 ml STK-MED ONCE IH ; Start 06/15/16 at 13:55; Stop at 13:56; Status DC Sevoflurane (Ultane) 60 ml STK-MED ONCE IH ; Start 06/15/16 at 13:55; Stop at 13:56; Status DC Warfarin Sodium (Coumadin - No Dose Today) 1 each 1X WARF ONCE MC Last administered on 06/15/16t 16:00; Start 06/15/16 at 16:00; Stop 06/15/16 at 16:01; Status DC Cefazolin Sodium/ Dextrose (Ancef 2gm Premix) 2 gm STK-MED ONCE IV ; Start at 13:00; Stop 06/16/16 at 08:05; Status DC Active Scripts Active Reported Coumadin (Warfarin Sodium) 5 Mg Tablet 1 Tab PO DAILY Metoprolol Succinate ( Xl ) (Metoprolol Succinate) 25 Mg Tab.er.24h 25 Mg PO DAILY Vitals/I & O Vital Sign - Last 24 Hours 06/15/16 06/15/16 06/15/16 06/15/16 10:00 11:00 11:23 12:00 Temp 98.9 98.9 Pulse 67 75 89 Resp 18 B/P 105/79 117/80 117/76 Pulse Ox 98 O2 Delivery Room Air Room Air 06/15/16 06/15/16 06/15/16 06/15/16 14:10 14:27 14:35 14:48 Temp 97.7 97.7 Pulse 69 69 69 Resp 18 16 16 B/P 117/63 111/62 109/61 Pulse Ox 100 100 100 O2 Delivery Simple Mask Face Tent Nasal Cannula Nasal Cannula O2 Flow Rate 3.0 2.0 06/15/16 06/15/16 06/15/16 06/15/16 15:09 15:58 16:03 17:04 Temp 97.5 97.5 Pulse 75 75 77 Resp 16 16 18 B/P 103/61 115/66 114/67 Pulse Ox 98 98 99 O2 Delivery Nasal Cannula Nasal Cannula Nasal Cannula Nasal Cannula O2 Flow Rate 2.0 2.0 2.0 2.0 06/15/16 06/15/16 06/15/16 06/15/16 18:03 19:02 19:33 20:00 Temp 97.8 97.6 97.8 97.6 Pulse 87 88 90 Resp 18 18 14 B/P 122/72 110/62 118/65 Pulse Ox 100 99 98 O2 Delivery Nasal Cannula Nasal Cannula Nasal Cannula Room Air O2 Flow Rate 2.0 2.0 2.0 06/15/16 06/15/16 06/15/16 06/15/16 20:00 21:00 22:00 22:00 Pulse 80 75 82 84 Resp 14 B/P 109/68 103/60 103/60 107/61 Pulse Ox 99 99 99 90 O2 Delivery Nasal Cannula Nasal Cannula Nasal Cannula Nasal Cannula O2 Flow Rate 2.0 2.0 2.0 2.0 06/15/16 06/15/16 06/15/16 06/16/16 23:00 23:18 23:59 00:00 Temp 97.6 97.6 Pulse 84 80 Resp 16 20 B/P 107/61 102/60 Pulse Ox 90 98 98 O2 Delivery Nasal Cannula Room Air Room Air Nasal Cannula O2 Flow Rate 2.0 2.0 06/16/16 06/16/16 06/16/16 06/16/16 00:15 00:59 01:00 02:00 Pulse 85 80 82 Resp 16 16 15 19 B/P 103/61 103/61 110/63 Pulse Ox 98 98 97 98 O2 Delivery Room Air Nasal Cannula O2 Flow Rate 2.0 06/16/16 06/16/16 06/16/16 06/16/16 02:59 04:00 04:00 04:59 Pulse 83 77 69 Resp 20 17 23 B/P 105/60 99/65 112/62 Pulse Ox 99 97 98 O2 Delivery Room Air 06/16/16 06/16/16 06/16/16 06/16/16 05:00 05:59 06:00 08:00 Temp 98.4 98.4 Pulse 70 73 69 Resp 31 20 17 B/P 112/62 108/64 108/64 Pulse Ox 97 98 98 O2 Delivery Room Air Room Air Room Air 06/16/16 06/16/16 08:51 08:52 Pulse 88 Resp 18 B/P 96/58 Pulse Ox 98 O2 Delivery Room Air Intake and Output 06/15/16 06/15/16 06/16/16 15:00 23:00 07:00 Intake Total 1753 ml 245 ml 1793 ml Output Total 155 ml 1729 ml 435 ml Balance 1598 ml -1484 ml 1358 ml CONNIE ESTEVEZ MD Jun 16, 2016 09:33
--- NOTE | 2016-06-16 09:43 | PDOC ---
PROGRESS NOTES Chief Complaint Chief Complaint cc: headaches - Serotherapeutic INR, improving, - Bilateral subdural hematoma - Headaches better - Confusion - Marfan's syndrome with hx of valve replacements and eye surgeries - Left eye blindness - HTN stable, -Hypokalemia Plan s/p Gema hole left, hold Coumadin today, resume from AM labs reviwed, clinically better, no acute symptoms BP well controlled. Follow NS and neurology recommendations. History of Present Illness History of Present Illness seen this AM IN ICU doing better no fever no headaches, Vitals Vitals Vital Signs Date Time Temp Pulse Resp B/P Pulse Ox O2 Delivery O2 Flow Rate FiO2 06/16/16 08:52 18 98 Room Air 06/16/16 08:51 88 96/58 06/16/16 05:00 98.4 98.4 06/16/16 01:00 2.0 Physical Exam Physical Exam Eyes: Cloudy opacities, evidence of previous surgery General: Alert, Oriented X3, Cooperative, No acute distress Heart: Regular rate Lungs: Clear, Other Abdomen: Normal bowel sounds Extremities: No clubbing, No cyanosis, No edema Skin: No rashes, No breakdown, No significant lesion Labs LABS Laboratory Tests Test 06/16/16 05:46 White Blood Count 8.7x10^3/uL (4.0-11.0) Red Blood Count 3.98x10^6/uL (4.30-5.70) Hemoglobin 11.9g/dL (13.0-17.5) Hematocrit 35.6% (39.0-53.0) Mean Corpuscular Volume 90fL (79-100) Mean Corpuscular Hemoglobin 30pg (25-35) Mean Corpuscular Hemoglobin Concent 34g/dL (31-37) Red Cell Distribution Width 13.3% (11.5-14.5) Platelet Count 167x10^3/uL (140-400) Neutrophils (%) (Auto) 79% (31-73) Lymphocytes (%) (Auto) 9% (24-48) Monocytes (%) (Auto) 12% (0-9) Eosinophils (%) (Auto) 0% (0-3) Basophils (%) (Auto) 0% (0-3) Neutrophils # (Auto) 6.9x10^3uL (1.8-7.7) Lymphocytes # (Auto) 0.8x10^3/uL (1.0-4.8) Monocytes # (Auto) 1.1x10^3/uL (0.0-1.1) Eosinophils # (Auto) 0.0x10^3/uL (0.0-0.7) Basophils # (Auto) 0.0x10^3/uL (0.0-0.2) Prothrombin Time 16.0SEC (11.7-14.0) Prothromb Time International Ratio 1.4 (0.8-1.1) Sodium Level 139mmol/L (136-145) Potassium Level 4.1mmol/L (3.5-5.1) Chloride Level 104mmol/L (98-107) Carbon Dioxide Level 27mmol/L (21-32) Anion Gap 8 (6-14) Blood Urea Nitrogen 13mg/dL (8-26) Creatinine 0.8mg/dL (0.7-1.3) Estimated GFR (Cockcroft-Gault) 102.3 Glucose Level 122mg/dL (70-99) Calcium Level 8.6mg/dL (8.5-10.1) Assessment and Plan Assessmemt and Plan Problems Medical Problems: (1) Subdural hematoma Status: Acute (2) Supratherapeutic INR Status: Acute Problems: Comment Review of Relevant I have reviewed the following items jordy (where applicable) has been applied. Labs Laboratory Tests Test 06/15/16 05:30 06/16/16 05:46 White Blood Count 7.0x10^3/uL (4.0-11.0) 8.7x10^3/uL (4.0-11.0) Red Blood Count 4.53x10^6/uL (4.30-5.70) 3.98x10^6/uL (4.30-5.70) Hemoglobin 13.5g/dL (13.0-17.5) 11.9g/dL (13.0-17.5) Hematocrit 40.9% (39.0-53.0) 35.6% (39.0-53.0) Mean Corpuscular Volume 90fL (79-100) 90fL (79-100) Mean Corpuscular Hemoglobin 30pg (25-35) 30pg (25-35) Mean Corpuscular Hemoglobin Concent 33g/dL (31-37) 34g/dL (31-37) Red Cell Distribution Width 13.3% (11.5-14.5) 13.3% (11.5-14.5) Platelet Count 171x10^3/uL (140-400) 167x10^3/uL (140-400) Neutrophils (%) (Auto) 64% (31-73) 79% (31-73) Lymphocytes (%) (Auto) 21% (24-48) 9% (24-48) Monocytes (%) (Auto) 11% (0-9) 12% (0-9) Eosinophils (%) (Auto) 4% (0-3) 0% (0-3) Basophils (%) (Auto) 1% (0-3) 0% (0-3) Neutrophils # (Auto) 4.4x10^3uL (1.8-7.7) 6.9x10^3uL (1.8-7.7) Lymphocytes # (Auto) 1.5x10^3/uL (1.0-4.8) 0.8x10^3/uL (1.0-4.8) Monocytes # (Auto) 0.7x10^3/uL (0.0-1.1) 1.1x10^3/uL (0.0-1.1) Eosinophils # (Auto) 0.3x10^3/uL (0.0-0.7) 0.0x10^3/uL (0.0-0.7) Basophils # (Auto) 0.1x10^3/uL (0.0-0.2) 0.0x10^3/uL (0.0-0.2) Prothrombin Time 20.6SEC (11.7-14.0) 16.0SEC (11.7-14.0) Prothromb Time International Ratio 1.9 (0.8-1.1) 1.4 (0.8-1.1) Sodium Level 139mmol/L (136-145) 139mmol/L (136-145) Potassium Level 3.3mmol/L (3.5-5.1) 4.1mmol/L (3.5-5.1) Chloride Level 104mmol/L (98-107) 104mmol/L (98-107) Carbon Dioxide Level 28mmol/L (21-32) 27mmol/L (21-32) Anion Gap 7 (6-14) 8 (6-14) Blood Urea Nitrogen 8mg/dL (8-26) 13mg/dL (8-26) Creatinine 0.8mg/dL (0.7-1.3) 0.8mg/dL (0.7-1.3) Estimated GFR (Cockcroft-Gault) 102.3 102.3 Glucose Level 82mg/dL (70-99) 122mg/dL (70-99) Calcium Level 8.7mg/dL (8.5-10.1) 8.6mg/dL (8.5-10.1) Laboratory Tests Test 06/16/16 05:46 White Blood Count 8.7x10^3/uL (4.0-11.0) Red Blood Count 3.98x10^6/uL (4.30-5.70) Hemoglobin 11.9g/dL (13.0-17.5) Hematocrit 35.6% (39.0-53.0) Mean Corpuscular Volume 90fL (79-100) Mean Corpuscular Hemoglobin 30pg (25-35) Mean Corpuscular Hemoglobin Concent 34g/dL (31-37) Red Cell Distribution Width 13.3% (11.5-14.5) Platelet Count 167x10^3/uL (140-400) Neutrophils (%) (Auto) 79% (31-73) Lymphocytes (%) (Auto) 9% (24-48) Monocytes (%) (Auto) 12% (0-9) Eosinophils (%) (Auto) 0% (0-3) Basophils (%) (Auto) 0% (0-3) Neutrophils # (Auto) 6.9x10^3uL (1.8-7.7) Lymphocytes # (Auto) 0.8x10^3/uL (1.0-4.8) Monocytes # (Auto) 1.1x10^3/uL (0.0-1.1) Eosinophils # (Auto) 0.0x10^3/uL (0.0-0.7) Basophils # (Auto) 0.0x10^3/uL (0.0-0.2) Prothrombin Time 16.0SEC (11.7-14.0) Prothromb Time International Ratio 1.4 (0.8-1.1) Sodium Level 139mmol/L (136-145) Potassium Level 4.1mmol/L (3.5-5.1) Chloride Level 104mmol/L (98-107) Carbon Dioxide Level 27mmol/L (21-32) Anion Gap 8 (6-14) Blood Urea Nitrogen 13mg/dL (8-26) Creatinine 0.8mg/dL (0.7-1.3) Estimated GFR (Cockcroft-Gault) 102.3 Glucose Level 122mg/dL (70-99) Calcium Level 8.6mg/dL (8.5-10.1) Microbiology 06/13/16 Urine Culture - Final, Complete 06/13/16 Urine Culture Result 1 (GLENN) - Final, Complete Medications Current Medications Sodium Chloride (Iv Sodium Chloride 0.9% 1000ml Bag) 1,000 ml @ 100 mls/hr 1X ONCE IV Last administered on 06/13/16 13:45; Start 06/13/16 at 13:45; Stop at 23:44; Status DC Phytonadione (Mephyton) 10 mg 1X ONCE PO Last administered on 06/13/16 15:03; Start 06/13/16 at 15:00; Stop 06/13/16 at 15:01; Status DC Ondansetron HCl 4 mg 4 mg PRN Q8HRS PRN IV NAUSEA/VOMITING; Start 06/13/16 at 16 :15; Stop 06/14/16 at 16:14; Status DC Sodium Chloride (Iv Sodium Chloride 0.9% 1000ml Bag) 1,000 ml @ 100 mls/hr Q10H IV Last administered on 06/14/16 05:49; Start 06/13/16 at 16:10; Stop at 13:20; Status DC Morphine Sulfate 2 mg 1X ONCE IV Last administered on 06/13/16 18:08; Start at 18:30; Stop 06/13/16 at 18:31; Status DC Oxycodone/ Acetaminophen (Percocet 5/325) 1 tab PRN Q4HRS PRN PO PAIN Last administered on 06/15/16 23:18; Start 06/13/16 at 18:00 Oxycodone/ Acetaminophen (Percocet 5/325) 2 tab PRN Q4HRS PRN PO PAIN Last administered on 06/16/16 08:52; Start 06/13/16 at 18:00 Metoprolol Succinate (Toprol Xl) 25 mg DAILY PO Last administered on 06/16/16 08:51; Start 06/14/16 at 09:00 Lorazepam 2 mg 2 mg PRN Q4HRS PRN IV ANXIETY / AGITATION; Start 06/13/16 at 19: 45 Levetiracetam 500 mg/Sodium Chloride 105 ml @ 400 mls/hr PRN Q12HRS PRN IV SEIZURES; Start 06/13/16 at 19:45 Potassium Chloride/Sodium Chloride (KCl 20 Meq-0.45% Nacl) 1,000 ml @ 100 mls/ hr Q10H IV Last administered on 06/16/16 08:51; Start 06/14/16 at 13:30 Warfarin Sodium (Coumadin Per Pharmacy) 1 each PRN DAILY PRN MC SEE COMMENTS Last administered on 06/14/16 16:23; Start 06/14/16 at 16:00 Warfarin Sodium 2.5 mg 2.5 mg 1X WARF ONCE PO ; Start 06/14/16 at 17:00; Stop at 17:01; Status Cancel Bacitracin/Sodium Chloride (Iv Sodium Chloride 0.9% 1000ml Bag) 1,000 ml @ 1, 000 mls/hr 1X PERIOP ONCE IRR Last administered on 06/15/16 12:41; Start at 10:00; Stop 06/15/16 at 10:59; Status DC Ondansetron HCl (Zofran) 4 mg PRN Q6HRS PRN IV Nausea; Start 06/15/16 at 10:00; Stop 06/16/16 at 09:59 Fentanyl Citrate (Fentanyl 2ml Vial) 25 mcg PRN Q5MIN PRN IV MILD PAIN; Start 06/15/16 at 10:00; Stop 06/16/16 at 09:59 Fentanyl Citrate (Fentanyl 2ml Vial) 50 mcg PRN Q5MIN PRN IV MODERATE PAIN; Start 06/15/16 at 10:00; Stop 06/16/16 at 09:59 Morphine Sulfate 1 mg 1 mg PRN Q10MIN PRN IV SEVERE PAIN; Start 06/15/16 at 10: 00; Stop 06/16/16 at 09:59 Lactated Ringer's (Iv Lactated Ringers) 1,000 ml @ 30 mls/hr Q24H IV ; Start at 09:47; Stop 06/15/16 at 21:46; Status DC Lidocaine HCl 2 ml 1X PRN PRN ID IV START; Start 06/15/16 at 10:00; Stop at 09:59 Hydromorphone HCl (Dilaudid) 0.5 mg PRN Q10MIN PRN IV SEV PAIN,Second choice; Start 06/15/16 at 10:00; Stop 06/16/16 at 09:59 Prochlorperazine Edisylate (Compazine) 5 mg PACU PRN PRN IV NAUSEA; Start at 10:00; Stop 06/16/16 at 09:59 Phytonadione (Vitamin K) 2 mg 1X ONCE SQ Last administered on 06/15/16t 11:21; Start 06/15/16 at 09:45; Stop 06/15/16 at 09:57; Status DC Dexamethasone Sodium Phosphate (Decadron) 20 mg STK-MED ONCE .ROUTE ; Start 06/15 at 10:26; Stop 06/15/16 at 10:27; Status DC Ondansetron HCl (Zofran) 4 mg STK-MED ONCE .ROUTE ; Start 06/15/16 at 10:26; Stop 06/15/16 at 10:27; Status DC Rocuronium [place] 50 mg 50 mg STK-MED ONCE .ROUTE ; Start 06/15/16 at 10:26; Stop 06/15/16 at 10:27; Status DC Propofol (Diprivan) 20 ml @ As Directed STK-MED ONCE IV ; Start 06/15/16 at 10:26 ; Stop 06/15/16 at 10:27; Status DC Lidocaine HCl 100 mg STK-MED ONCE .ROUTE ; Start 06/15/16 at 10:26; Stop 06/15/16 at 10:27; Status DC Fentanyl Citrate (Fentanyl 2ml Vial) 100 mcg STK-MED ONCE .ROUTE ; Start at 10:26; Stop 06/15/16 at 10:27; Status DC Thrombin 20,000 unit STK-MED ONCE TP Last administered on 06/15/16 12:41; Start 06/15/16 at 10:47; Stop 06/15/16 at 10:48; Status DC Gelatin (Gelfoam Size 100) 1 each STK-MED ONCE .ROUTE Last administered on 06/15 12:41; Start 06/15/16 at 10:48; Stop 06/15/16 at 10:49; Status DC Bupivacaine HCl/ Epinephrine Bitart (Sensorcaine-Epi 0.25%-1:088919 Mpf) 30 ml STK-MED ONCE .ROUTE Last administered on 06/15/16 12:41; Start 06/15/16 at 10:48 ; Stop 06/15/16 at 10:49; Status DC Cellulose 1 each STK-MED ONCE .ROUTE ; Start 06/15/16 at 10:49; Stop 06/15/16 at 10:50; Status DC Potassium Chloride 20 meq 20 meq 1X ONCE PO Last administered on 06/15/16 11: 21; Start 06/15/16 at 11:15; Stop 06/15/16 at 11:16; Status DC Cefazolin Sodium/ Dextrose (Ancef 2gm Premix) 50 ml @ 100 mls/hr 1X PREOP PRN IV PER PROTOCOL Last administered on 06/15/16 12:56; Start 06/16/16 at 06:00; Stop 06/16/16 at 18:00 Ephedrine Sulfate 50 mg STK-MED ONCE IV ; Start 06/15/16 at 13:04; Stop 06/15/16 at 13:05; Status DC Glycopyrrolate (Robinul) 1 mg STK-MED ONCE .ROUTE ; Start 06/15/16 at 13:39; Stop 06/15/16 at 13:40; Status DC Neostigmine Methylsulfate 5 mg STK-MED ONCE .ROUTE ; Start 06/15/16 at 13:39; Stop 06/15/16 at 13:40; Status DC Fentanyl Citrate (Fentanyl 2ml Vial) 100 mcg STK-MED ONCE .ROUTE ; Start at 13:55; Stop 06/15/16 at 13:56; Status DC Sevoflurane (Ultane) 30 ml STK-MED ONCE IH ; Start 06/15/16 at 13:55; Stop at 13:56; Status DC Sevoflurane (Ultane) 60 ml STK-MED ONCE IH ; Start 06/15/16 at 13:55; Stop at 13:56; Status DC Warfarin Sodium (Coumadin - No Dose Today) 1 each 1X WARF ONCE MC Last administered on 06/15/16t 16:00; Start 06/15/16 at 16:00; Stop 06/15/16 at 16:01; Status DC Cefazolin Sodium/ Dextrose (Ancef 2gm Premix) 2 gm STK-MED ONCE IV ; Start at 13:00; Stop 06/16/16 at 08:05; Status DC Active Scripts Active Reported Coumadin (Warfarin Sodium) 5 Mg Tablet 1 Tab PO DAILY Metoprolol Succinate ( Xl ) (Metoprolol Succinate) 25 Mg Tab.er.24h 25 Mg PO DAILY Vitals/I & O Vital Sign - Last 24 Hours 06/15/16 06/15/16 06/15/16 06/15/16 10:00 11:00 11:23 12:00 Temp 98.9 98.9 Pulse 67 75 89 Resp 18 18 B/P 105/79 117/80 117/76 Pulse Ox 98 O2 Delivery Room Air Room Air 06/15/16 06/15/16 06/15/16 06/15/16 14:10 14:27 14:35 14:48 Temp 97.7 97.7 Pulse 69 69 69 Resp 18 16 16 B/P 117/63 111/62 109/61 Pulse Ox 100 100 100 O2 Delivery Simple Mask Face Tent Nasal Cannula Nasal Cannula O2 Flow Rate 3.0 2.0 06/15/16 06/15/16 06/15/16 06/15/16 15:09 15:58 16:03 17:04 Temp 97.5 97.5 Pulse 75 75 77 Resp 16 16 18 B/P 103/61 115/66 114/67 Pulse Ox 98 98 99 O2 Delivery Nasal Cannula Nasal Cannula Nasal Cannula Nasal Cannula O2 Flow Rate 2.0 2.0 2.0 2.0 06/15/16 06/15/16 06/15/16 06/15/16 18:03 19:02 19:33 20:00 Temp 97.8 97.6 97.8 97.6 Pulse 87 88 90 Resp 18 18 14 B/P 122/72 110/62 118/65 Pulse Ox 100 99 98 O2 Delivery Nasal Cannula Nasal Cannula Nasal Cannula Room Air O2 Flow Rate 2.0 2.0 2.0 06/15/16 06/15/16 06/15/16 06/15/16 20:00 21:00 22:00 22:00 Pulse 80 75 82 84 Resp 14 B/P 109/68 103/60 103/60 107/61 Pulse Ox 99 99 99 90 O2 Delivery Nasal Cannula Nasal Cannula Nasal Cannula Nasal Cannula O2 Flow Rate 2.0 2.0 2.0 2.0 06/15/16 06/15/16 06/15/16 06/16/16 23:00 23:18 23:59 00:00 Temp 97.6 97.6 Pulse 84 80 Resp 16 20 B/P 107/61 102/60 Pulse Ox 90 98 98 O2 Delivery Nasal Cannula Room Air Room Air Nasal Cannula O2 Flow Rate 2.0 2.0 06/16/16 06/16/16 06/16/16 06/16/16 00:15 00:59 01:00 02:00 Pulse 85 80 82 Resp 16 16 15 19 B/P 103/61 103/61 110/63 Pulse Ox 98 98 97 98 O2 Delivery Room Air Nasal Cannula O2 Flow Rate 2.0 06/16/16 06/16/16 06/16/16 06/16/16 02:59 04:00 04:00 04:59 Pulse 83 77 69 Resp 20 17 23 B/P 105/60 99/65 112/62 Pulse Ox 99 97 98 O2 Delivery Room Air 06/16/16 06/16/16 06/16/16 06/16/16 05:00 05:59 06:00 08:00 Temp 98.4 98.4 Pulse 70 73 69 Resp 31 20 17 B/P 112/62 108/64 108/64 Pulse Ox 97 98 98 O2 Delivery Room Air Room Air Room Air 06/16/16 06/16/16 08:51 08:52 Pulse 88 Resp 18 B/P 96/58 Pulse Ox 98 O2 Delivery Room Air Intake and Output 06/15/16 06/15/16 06/16/16 15:00 23:00 07:00 Intake Total 1753 ml 245 ml 1793 ml Output Total 155 ml 1729 ml 435 ml Balance 1598 ml -1484 ml 1358 ml CHRIS HARDIN MD Jun 16, 2016 09:43
--- NOTE | 2016-06-16 10:21 | PDOC ---
PROGRESS NOTES Assessment Problems Medical Problems: (1) Subdural hematoma Status: Acute (2) Supratherapeutic INR Status: Acute Bilateral SDH, Status post nela hole Headache Metabolic encephalopathy. Confusion Marfan's syndrome. Left eye vision loss. Plan Keppra if seizures. Resume anticoagulants and antiplatelet agents BP control. Per neurosurgery's plans Subjective He denies pain Objective Vital Signs Date Time Temp Pulse Resp B/P Pulse Ox O2 Delivery O2 Flow Rate FiO2 06/16/16 09:00 88 18 118/78 98 Room Air 06/16/16 08:00 98.9 98.9 06/16/16 01:00 2.0 Intake and Output 06/16/16 07:00 Intake Total 3791 ml Output Total 2319 ml Balance 1472 ml Intake Oral 995 ml IV Total 2348 ml Blood Product IV Normal Saline Flush 448 ml Output Urine Total 2260 ml Drainage Total 59 ml # Voids 1 PHYSICAL EXAM Alert, inappropriately jocular, does follow commands, knows that he is in the hospital, does not know the date Left cornea is scarred, right pupil reacts EOMI. CN: no focal findings. Muscle tone: normal. Muscle strength: 5-/5 DTR: 2+ Plantar reflex: flexor Gait: not examined in bed. Sensory exam: no abnormal findings. No cerebellar signs Review of Relevant I have reviewed the following items jordy (where applicable) has been applied. Labs Laboratory Tests Test 06/15/16 05:30 06/16/16 05:46 White Blood Count 7.0x10^3/uL (4.0-11.0) 8.7x10^3/uL (4.0-11.0) Red Blood Count 4.53x10^6/uL (4.30-5.70) 3.98x10^6/uL (4.30-5.70) Hemoglobin 13.5g/dL (13.0-17.5) 11.9g/dL (13.0-17.5) Hematocrit 40.9% (39.0-53.0) 35.6% (39.0-53.0) Mean Corpuscular Volume 90fL (79-100) 90fL (79-100) Mean Corpuscular Hemoglobin 30pg (25-35) 30pg (25-35) Mean Corpuscular Hemoglobin Concent 33g/dL (31-37) 34g/dL (31-37) Red Cell Distribution Width 13.3% (11.5-14.5) 13.3% (11.5-14.5) Platelet Count 171x10^3/uL (140-400) 167x10^3/uL (140-400) Neutrophils (%) (Auto) 64% (31-73) 79% (31-73) Lymphocytes (%) (Auto) 21% (24-48) 9% (24-48) Monocytes (%) (Auto) 11% (0-9) 12% (0-9) Eosinophils (%) (Auto) 4% (0-3) 0% (0-3) Basophils (%) (Auto) 1% (0-3) 0% (0-3) Neutrophils # (Auto) 4.4x10^3uL (1.8-7.7) 6.9x10^3uL (1.8-7.7) Lymphocytes # (Auto) 1.5x10^3/uL (1.0-4.8) 0.8x10^3/uL (1.0-4.8) Monocytes # (Auto) 0.7x10^3/uL (0.0-1.1) 1.1x10^3/uL (0.0-1.1) Eosinophils # (Auto) 0.3x10^3/uL (0.0-0.7) 0.0x10^3/uL (0.0-0.7) Basophils # (Auto) 0.1x10^3/uL (0.0-0.2) 0.0x10^3/uL (0.0-0.2) Prothrombin Time 20.6SEC (11.7-14.0) 16.0SEC (11.7-14.0) Prothromb Time International Ratio 1.9 (0.8-1.1) 1.4 (0.8-1.1) Sodium Level 139mmol/L (136-145) 139mmol/L (136-145) Potassium Level 3.3mmol/L (3.5-5.1) 4.1mmol/L (3.5-5.1) Chloride Level 104mmol/L (98-107) 104mmol/L (98-107) Carbon Dioxide Level 28mmol/L (21-32) 27mmol/L (21-32) Anion Gap 7 (6-14) 8 (6-14) Blood Urea Nitrogen 8mg/dL (8-26) 13mg/dL (8-26) Creatinine 0.8mg/dL (0.7-1.3) 0.8mg/dL (0.7-1.3) Estimated GFR (Cockcroft-Gault) 102.3 102.3 Glucose Level 82mg/dL (70-99) 122mg/dL (70-99) Calcium Level 8.7mg/dL (8.5-10.1) 8.6mg/dL (8.5-10.1) Laboratory Tests Test 06/16/16 05:46 White Blood Count 8.7x10^3/uL (4.0-11.0) Red Blood Count 3.98x10^6/uL (4.30-5.70) Hemoglobin 11.9g/dL (13.0-17.5) Hematocrit 35.6% (39.0-53.0) Mean Corpuscular Volume 90fL (79-100) Mean Corpuscular Hemoglobin 30pg (25-35) Mean Corpuscular Hemoglobin Concent 34g/dL (31-37) Red Cell Distribution Width 13.3% (11.5-14.5) Platelet Count 167x10^3/uL (140-400) Neutrophils (%) (Auto) 79% (31-73) Lymphocytes (%) (Auto) 9% (24-48) Monocytes (%) (Auto) 12% (0-9) Eosinophils (%) (Auto) 0% (0-3) Basophils (%) (Auto) 0% (0-3) Neutrophils # (Auto) 6.9x10^3uL (1.8-7.7) Lymphocytes # (Auto) 0.8x10^3/uL (1.0-4.8) Monocytes # (Auto) 1.1x10^3/uL (0.0-1.1) Eosinophils # (Auto) 0.0x10^3/uL (0.0-0.7) Basophils # (Auto) 0.0x10^3/uL (0.0-0.2) Prothrombin Time 16.0SEC (11.7-14.0) Prothromb Time International Ratio 1.4 (0.8-1.1) Sodium Level 139mmol/L (136-145) Potassium Level 4.1mmol/L (3.5-5.1) Chloride Level 104mmol/L (98-107) Carbon Dioxide Level 27mmol/L (21-32) Anion Gap 8 (6-14) Blood Urea Nitrogen 13mg/dL (8-26) Creatinine 0.8mg/dL (0.7-1.3) Estimated GFR (Cockcroft-Gault) 102.3 Glucose Level 122mg/dL (70-99) Calcium Level 8.6mg/dL (8.5-10.1) Microbiology 06/13/16 Urine Culture - Final, Complete 06/13/16 Urine Culture Result 1 (GLENN) - Final, Complete Medications Current Medications Sodium Chloride (Iv Sodium Chloride 0.9% 1000ml Bag) 1,000 ml @ 100 mls/hr 1X ONCE IV Last administered on 06/13/16 13:45; Start 06/13/16 at 13:45; Stop at 23:44; Status DC Phytonadione (Mephyton) 10 mg 1X ONCE PO Last administered on 06/13/16 15:03; Start 06/13/16 at 15:00; Stop 06/13/16 at 15:01; Status DC Ondansetron HCl 4 mg 4 mg PRN Q8HRS PRN IV NAUSEA/VOMITING; Start 06/13/16 at 16 :15; Stop 06/14/16 at 16:14; Status DC Sodium Chloride (Iv Sodium Chloride 0.9% 1000ml Bag) 1,000 ml @ 100 mls/hr Q10H IV Last administered on 06/14/16 05:49; Start 06/13/16 at 16:10; Stop at 13:20; Status DC Morphine Sulfate 2 mg 1X ONCE IV Last administered on 06/13/16 18:08; Start at 18:30; Stop 06/13/16 at 18:31; Status DC Oxycodone/ Acetaminophen (Percocet 5/325) 1 tab PRN Q4HRS PRN PO PAIN Last administered on 06/15/16 23:18; Start 06/13/16 at 18:00 Oxycodone/ Acetaminophen (Percocet 5/325) 2 tab PRN Q4HRS PRN PO PAIN Last administered on 06/16/16 08:52; Start 06/13/16 at 18:00 Metoprolol Succinate (Toprol Xl) 25 mg DAILY PO Last administered on 06/16/16 08:51; Start 06/14/16 at 09:00 Lorazepam 2 mg 2 mg PRN Q4HRS PRN IV ANXIETY / AGITATION; Start 06/13/16 at 19: 45 Levetiracetam 500 mg/Sodium Chloride 105 ml @ 400 mls/hr PRN Q12HRS PRN IV SEIZURES; Start 06/13/16 at 19:45 Potassium Chloride/Sodium Chloride (KCl 20 Meq-0.45% Nacl) 1,000 ml @ 100 mls/ hr Q10H IV Last administered on 06/16/16 08:51; Start 06/14/16 at 13:30 Warfarin Sodium (Coumadin Per Pharmacy) 1 each PRN DAILY PRN MC SEE COMMENTS Last administered on 06/14/16 16:23; Start 06/14/16 at 16:00 Warfarin Sodium 2.5 mg 2.5 mg 1X WARF ONCE PO ; Start 06/14/16 at 17:00; Stop at 17:01; Status Cancel Bacitracin/Sodium Chloride (Iv Sodium Chloride 0.9% 1000ml Bag) 1,000 ml @ 1, 000 mls/hr 1X PERIOP ONCE IRR Last administered on 06/15/16 12:41; Start at 10:00; Stop 06/15/16 at 10:59; Status DC Ondansetron HCl (Zofran) 4 mg PRN Q6HRS PRN IV Nausea; Start 06/15/16 at 10:00; Stop 06/16/16 at 09:59; Status DC Fentanyl Citrate (Fentanyl 2ml Vial) 25 mcg PRN Q5MIN PRN IV MILD PAIN; Start 06/15/16 at 10:00; Stop 06/16/16 at 09:59; Status DC Fentanyl Citrate (Fentanyl 2ml Vial) 50 mcg PRN Q5MIN PRN IV MODERATE PAIN; Start 06/15/16 at 10:00; Stop 06/16/16 at 09:59; Status DC Morphine Sulfate 1 mg 1 mg PRN Q10MIN PRN IV SEVERE PAIN; Start 06/15/16 at 10: 00; Stop 06/16/16 at 09:59; Status DC Lactated Ringer's (Iv Lactated Ringers) 1,000 ml @ 30 mls/hr Q24H IV ; Start at 09:47; Stop 06/15/16 at 21:46; Status DC Lidocaine HCl 2 ml 1X PRN PRN ID IV START; Start 06/15/16 at 10:00; Stop at 09:59; Status DC Hydromorphone HCl (Dilaudid) 0.5 mg PRN Q10MIN PRN IV SEV PAIN,Second choice; Start 06/15/16 at 10:00; Stop 06/16/16 at 09:59; Status DC Prochlorperazine Edisylate (Compazine) 5 mg PACU PRN PRN IV NAUSEA; Start at 10:00; Stop 06/16/16 at 09:59; Status DC Phytonadione (Vitamin K) 2 mg 1X ONCE SQ Last administered on 06/15/16t 11:21; Start 06/15/16 at 09:45; Stop 06/15/16 at 09:57; Status DC Dexamethasone Sodium Phosphate (Decadron) 20 mg STK-MED ONCE .ROUTE ; Start 06/15 at 10:26; Stop 06/15/16 at 10:27; Status DC Ondansetron HCl (Zofran) 4 mg STK-MED ONCE .ROUTE ; Start 06/15/16 at 10:26; Stop 06/15/16 at 10:27; Status DC Rocuronium [place] 50 mg 50 mg STK-MED ONCE .ROUTE ; Start 06/15/16 at 10:26; Stop 06/15/16 at 10:27; Status DC Propofol (Diprivan) 20 ml @ As Directed STK-MED ONCE IV ; Start 06/15/16 at 10:26 ; Stop 06/15/16 at 10:27; Status DC Lidocaine HCl 100 mg STK-MED ONCE .ROUTE ; Start 06/15/16 at 10:26; Stop 06/15/16 at 10:27; Status DC Fentanyl Citrate (Fentanyl 2ml Vial) 100 mcg STK-MED ONCE .ROUTE ; Start at 10:26; Stop 06/15/16 at 10:27; Status DC Thrombin 20,000 unit STK-MED ONCE TP Last administered on 06/15/16 12:41; Start 06/15/16 at 10:47; Stop 06/15/16 at 10:48; Status DC Gelatin (Gelfoam Size 100) 1 each STK-MED ONCE .ROUTE Last administered on 06/15 12:41; Start 06/15/16 at 10:48; Stop 06/15/16 at 10:49; Status DC Bupivacaine HCl/ Epinephrine Bitart (Sensorcaine-Epi 0.25%-1:694272 Mpf) 30 ml STK-MED ONCE .ROUTE Last administered on 06/15/16 12:41; Start 06/15/16 at 10:48 ; Stop 06/15/16 at 10:49; Status DC Cellulose 1 each STK-MED ONCE .ROUTE ; Start 06/15/16 at 10:49; Stop 06/15/16 at 10:50; Status DC Potassium Chloride 20 meq 20 meq 1X ONCE PO Last administered on 06/15/16 11: 21; Start 06/15/16 at 11:15; Stop 06/15/16 at 11:16; Status DC Cefazolin Sodium/ Dextrose (Ancef 2gm Premix) 50 ml @ 100 mls/hr 1X PREOP PRN IV PER PROTOCOL Last administered on 06/15/16 12:56; Start 06/16/16 at 06:00; Stop 06/16/16 at 18:00 Ephedrine Sulfate 50 mg STK-MED ONCE IV ; Start 06/15/16 at 13:04; Stop 06/15/16 at 13:05; Status DC Glycopyrrolate (Robinul) 1 mg STK-MED ONCE .ROUTE ; Start 06/15/16 at 13:39; Stop 06/15/16 at 13:40; Status DC Neostigmine Methylsulfate 5 mg STK-MED ONCE .ROUTE ; Start 06/15/16 at 13:39; Stop 06/15/16 at 13:40; Status DC Fentanyl Citrate (Fentanyl 2ml Vial) 100 mcg STK-MED ONCE .ROUTE ; Start at 13:55; Stop 06/15/16 at 13:56; Status DC Sevoflurane (Ultane) 30 ml STK-MED ONCE IH ; Start 06/15/16 at 13:55; Stop at 13:56; Status DC Sevoflurane (Ultane) 60 ml STK-MED ONCE IH ; Start 06/15/16 at 13:55; Stop at 13:56; Status DC Warfarin Sodium (Coumadin - No Dose Today) 1 each 1X WARF ONCE MC Last administered on 06/15/16t 16:00; Start 06/15/16 at 16:00; Stop 06/15/16 at 16:01; Status DC Cefazolin Sodium/ Dextrose (Ancef 2gm Premix) 2 gm STK-MED ONCE IV ; Start at 13:00; Stop 06/16/16 at 08:05; Status DC Active Scripts Active Reported Coumadin (Warfarin Sodium) 5 Mg Tablet 1 Tab PO DAILY Metoprolol Succinate ( Xl ) (Metoprolol Succinate) 25 Mg Tab.er.24h 25 Mg PO DAILY Vitals/I & O Vital Sign - Last 24 Hours 06/15/16 06/15/16 06/15/16 06/15/16 11:00 11:23 12:00 14:10 Temp 98.9 97.7 98.9 97.7 Pulse 75 89 69 Resp 18 18 B/P 117/80 117/76 117/63 Pulse Ox 100 O2 Delivery Room Air Simple Mask 06/15/16 06/15/16 06/15/16 06/15/16 14:27 14:35 14:48 15:09 Pulse 69 69 75 Resp 16 16 16 B/P 111/62 109/61 103/61 Pulse Ox 100 100 98 O2 Delivery Face Tent Nasal Cannula Nasal Cannula Nasal Cannula O2 Flow Rate 3.0 2.0 2.0 06/15/16 06/15/16 06/15/16 06/15/16 15:58 16:03 17:04 18:03 Temp 97.5 97.8 97.5 97.8 Pulse 75 77 87 Resp 16 18 18 B/P 115/66 114/67 122/72 Pulse Ox 98 99 100 O2 Delivery Nasal Cannula Nasal Cannula Nasal Cannula Nasal Cannula O2 Flow Rate 2.0 2.0 2.0 2.0 06/15/16 06/15/16 06/15/16 06/15/16 19:02 19:33 20:00 20:00 Temp 97.6 97.6 Pulse 88 90 80 Resp 18 14 14 B/P 110/62 118/65 109/68 Pulse Ox 99 98 99 O2 Delivery Nasal Cannula Nasal Cannula Room Air Nasal Cannula O2 Flow Rate 2.0 2.0 2.0 06/15/16 06/15/16 06/15/16 06/15/16 21:00 22:00 22:00 23:00 Temp 97.6 97.6 Pulse 75 82 84 84 Resp B/P 103/60 103/60 107/61 107/61 Pulse Ox 99 99 90 90 O2 Delivery Nasal Cannula Nasal Cannula Nasal Cannula Nasal Cannula O2 Flow Rate 2.0 2.0 2.0 2.0 06/15/16 06/15/16 06/16/16 06/16/16 23:18 23:59 00:00 00:15 Pulse 80 Resp 16 20 16 B/P 102/60 Pulse Ox 98 98 98 O2 Delivery Room Air Room Air Nasal Cannula Room Air O2 Flow Rate 2.0 06/16/16 06/16/16 06/16/16 06/16/16 00:59 01:00 02:00 02:59 Pulse 85 80 82 83 Resp 16 15 19 20 B/P 103/61 103/61 110/63 105/60 Pulse Ox 98 97 98 99 O2 Delivery Nasal Cannula O2 Flow Rate 2.0 06/16/16 06/16/16 06/16/16 06/16/16 04:00 04:00 04:59 05:00 Temp 98.4 98.4 Pulse 77 69 70 Resp 17 23 31 B/P 99/65 112/62 112/62 Pulse Ox 97 98 97 O2 Delivery Room Air Room Air 06/16/16 06/16/16 06/16/16 06/16/16 05:59 06:00 07:00 08:00 Temp 98.9 98.9 Pulse 73 69 62 66 Resp 20 17 18 18 B/P 108/64 108/64 107/66 96/58 Pulse Ox 98 98 98 97 O2 Delivery Room Air Room Air Room Air 06/16/16 06/16/16 06/16/16 06/16/16 08:00 08:51 08:52 09:00 Pulse 88 88 Resp 18 18 B/P 96/58 118/78 Pulse Ox 98 98 O2 Delivery Room Air Room Air Room Air Intake and Output 06/15/16 06/15/16 06/16/16 15:00 23:00 07:00 Intake Total 1753 ml 245 ml 1793 ml Output Total 155 ml 1729 ml 435 ml Balance 1598 ml -1484 ml 1358 ml EDWARD AMBROSE MD Jun 16, 2016 10:21
[2016-06-16] MEDS: FAMOTIDINE 20 MG TABLET. PO SCH ×2 (14:03→20:40)
--- NOTE | 2016-06-16 16:29 | PDOC ---
CARDIO Progress Notes Date and Time Date of Service 06/16/16 Time of Evaluation 1250 Subjective Subjective: No Chest Pain, No shortness of breath, No Palpitations, Other (c/o mild REED) Vitals Vitals Vital Signs Date Time Temp Pulse Resp B/P Pulse Ox O2 Delivery O2 Flow Rate FiO2 06/16/16 12:00 98.5 70 18 102/59 98 Room Air 98.5 06/16/16 01:00 2.0 Weight Weight [ ] Input and Output Intake and Output Intake and Output 06/16/16 07:00 Intake Total 3791 ml Output Total 2319 ml Balance 1472 ml Intake Oral 995 ml IV Total 2348 ml Blood Product IV Normal Saline Flush 448 ml Output Urine Total 2260 ml Drainage Total 59 ml # Voids 1 Laboratory Labs Laboratory Tests Test 06/16/16 05:46 White Blood Count 8.7x10^3/uL (4.0-11.0) Red Blood Count 3.98x10^6/uL (4.30-5.70) Hemoglobin 11.9g/dL (13.0-17.5) Hematocrit 35.6% (39.0-53.0) Mean Corpuscular Volume 90fL (79-100) Mean Corpuscular Hemoglobin 30pg (25-35) Mean Corpuscular Hemoglobin Concent 34g/dL (31-37) Red Cell Distribution Width 13.3% (11.5-14.5) Platelet Count 167x10^3/uL (140-400) Neutrophils (%) (Auto) 79% (31-73) Lymphocytes (%) (Auto) 9% (24-48) Monocytes (%) (Auto) 12% (0-9) Eosinophils (%) (Auto) 0% (0-3) Basophils (%) (Auto) 0% (0-3) Neutrophils # (Auto) 6.9x10^3uL (1.8-7.7) Lymphocytes # (Auto) 0.8x10^3/uL (1.0-4.8) Monocytes # (Auto) 1.1x10^3/uL (0.0-1.1) Eosinophils # (Auto) 0.0x10^3/uL (0.0-0.7) Basophils # (Auto) 0.0x10^3/uL (0.0-0.2) Prothrombin Time 16.0SEC (11.7-14.0) Prothromb Time International Ratio 1.4 (0.8-1.1) Sodium Level 139mmol/L (136-145) Potassium Level 4.1mmol/L (3.5-5.1) Chloride Level 104mmol/L (98-107) Carbon Dioxide Level 27mmol/L (21-32) Anion Gap 8 (6-14) Blood Urea Nitrogen 13mg/dL (8-26) Creatinine 0.8mg/dL (0.7-1.3) Estimated GFR (Cockcroft-Gault) 102.3 Glucose Level 122mg/dL (70-99) Calcium Level 8.6mg/dL (8.5-10.1) Microbiology Micro Microbiology 06/13/16 Urine Culture - Final, Complete 06/13/16 Urine Culture Result 1 (GLENN) - Final, Complete Physical Exam HEENT: Neck Supple W Full Motion, Other (left corneal scarring, drsg intact to left ) Chest: Symmetric LUNGS: Clear to Auscultation Heart: S1S2, RRR Abdomen: Soft N/T Extremities: No Edema Neurology: alert (alert to person and place), follow commands Assessment Assessment 1. Bilateral SDH with initial supratherapeutic INR Status post nela hole Doing well. Continue post-op management per neurosurgery 2. Marfan's syndrome with dilated aortic sinus s/p aortic root replacement 08/2004. 3. s/p mechanical mitral and aortic valve replacement Stable. Anticoagulation therapy to resume in am. Echo 10/2008 revealed normal LVEF at 60-65% with no WMA. Both aortic and mitral valve well-seating with normal function will repeat echo 4. Hypertension controlled. continue with current therapy. YANETH FERRIS APRN Jun 16, 2016 16:29
[2016-06-16] MEDS ORDERED: FAMOTIDINE 20 MG/2 ML VIAL IVP SCH (21:00)
[2016-06-17 03:02] VITALS: BP 143/81
[2016-06-17] MEDS: POTASSIUM CL 20MEQ-0.45% NACL 1,000 ML IV SCH ×2 (03:24→11:30)
[2016-06-17] MEDS: OXYCODONE/APAP 5/325 TABLET. PO PRN (04:50)
[2016-06-17 07:42] LABS: BASO # 0.1 x10^3/uL (0.0-0.2); BASO % 1 % (0-3); EOS % 2 % (0-3); HEMATOCRIT 38.5 % (39.0-53.0); HEMOGLOBIN 12.8 g/dL (13.0-17.5); LYMPH # 0.9 x10^3/uL (1.0-4.8); LYMPH % 8 % (24-48); MEAN CORPUSCULAR HEMOGLOBIN 30 pg (25-35); MEAN CORPUSCULAR HGB CONC 33 g/dL (31-37); MEAN CORPUSCULAR VOLUME 90 fL (79-100); MONO % 11 % (0-9); NEUT % 79 % (31-73); PLATELET COUNT 176 x10^3/uL (140-400); RED BLOOD COUNT 4.28 x10^6/uL (4.30-5.70); RED CELL DISTRIBUTION WIDTH 13.3 % (11.5-14.5); WHITE BLOOD COUNT 10.8 x10^3/uL (4.0-11.0)
[2016-06-17 07:51] LABS: CALCIUM 8.5 mg/dL (8.5-10.1); CREATININE 0.9 mg/dL (0.7-1.3); GFR 89.3; POTASSIUM 3.8 mmol/L (3.5-5.1)
[2016-06-17 08:00] VITALS: BP 119/68
[2016-06-17 08:00] LABS: INR 1.2 (0.8-1.1); PROTHROMBIN TIME PATIENT 14.3 SEC (11.7-14.0)
[2016-06-17] MEDS: FAMOTIDINE 20 MG TABLET. PO SCH ×2 (10:03→20:23)
[2016-06-17] MEDS: METOPROLOL SUCC 24HR ER 25 MG TAB.ER.24H. PO SCH (10:04)
--- NOTE | 2016-06-17 10:32 | PDOC ---
PROGRESS NOTES Assessment Problems Medical Problems: (1) Subdural hematoma Status: Acute (2) Supratherapeutic INR Status: Acute Bilateral SDH, Status post nela hole Headache Metabolic encephalopathy. Confusion Marfan's syndrome. Left eye vision loss. Plan Keppra if seizures. Resume anticoagulants and antiplatelet agents BP control. Per neurosurgery's plans Subjective No complaints Objective Vital Signs Date Time Temp Pulse Resp B/P Pulse Ox O2 Delivery O2 Flow Rate FiO2 06/17/16 10:04 72 119/68 06/17/16 08:00 96.8 16 95 Room Air 96.8 Intake and Output 06/17/16 07:00 Intake Total 537 ml Output Total 3425 ml Balance -2888 ml Intake Oral 250 ml IV Total 287 ml Output Urine Total 3425 ml PHYSICAL EXAM Drowsy, alerts easily,, does follow commands, knows that he is in the hospital, does not know the date Left cornea is scarred, right pupil reacts EOMI. CN: no focal findings. Muscle tone: normal. Muscle strength: 5-/5 DTR: 2+ Plantar reflex: flexor Gait: not examined in bed. Sensory exam: no abnormal findings. No cerebellar signs Review of Relevant I have reviewed the following items jordy (where applicable) has been applied. Labs Laboratory Tests Test 06/16/16 05:46 06/17/16 07:20 White Blood Count 8.7x10^3/uL (4.0-11.0) 10.8x10^3/uL (4.0-11.0) Red Blood Count 3.98x10^6/uL (4.30-5.70) 4.28x10^6/uL (4.30-5.70) Hemoglobin 11.9g/dL (13.0-17.5) 12.8g/dL (13.0-17.5) Hematocrit 35.6% (39.0-53.0) 38.5% (39.0-53.0) Mean Corpuscular Volume 90fL (79-100) 90fL (79-100) Mean Corpuscular Hemoglobin 30pg (25-35) 30pg (25-35) Mean Corpuscular Hemoglobin Concent 34g/dL (31-37) 33g/dL (31-37) Red Cell Distribution Width 13.3% (11.5-14.5) 13.3% (11.5-14.5) Platelet Count 167x10^3/uL (140-400) 176x10^3/uL (140-400) Neutrophils (%) (Auto) 79% (31-73) 79% (31-73) Lymphocytes (%) (Auto) 9% (24-48) 8% (24-48) Monocytes (%) (Auto) 12% (0-9) 11% (0-9) Eosinophils (%) (Auto) 0% (0-3) 2% (0-3) Basophils (%) (Auto) 0% (0-3) 1% (0-3) Neutrophils # (Auto) 6.9x10^3uL (1.8-7.7) 8.5x10^3uL (1.8-7.7) Lymphocytes # (Auto) 0.8x10^3/uL (1.0-4.8) 0.9x10^3/uL (1.0-4.8) Monocytes # (Auto) 1.1x10^3/uL (0.0-1.1) 1.2x10^3/uL (0.0-1.1) Eosinophils # (Auto) 0.0x10^3/uL (0.0-0.7) 0.2x10^3/uL (0.0-0.7) Basophils # (Auto) 0.0x10^3/uL (0.0-0.2) 0.1x10^3/uL (0.0-0.2) Prothrombin Time 16.0SEC (11.7-14.0) 14.3SEC (11.7-14.0) Prothromb Time International Ratio 1.4 (0.8-1.1) 1.2 (0.8-1.1) Sodium Level 139mmol/L (136-145) 137mmol/L (136-145) Potassium Level 4.1mmol/L (3.5-5.1) 3.8mmol/L (3.5-5.1) Chloride Level 104mmol/L (98-107) 105mmol/L (98-107) Carbon Dioxide Level 27mmol/L (21-32) 27mmol/L (21-32) Anion Gap 8 (6-14) 5 (6-14) Blood Urea Nitrogen 13mg/dL (8-26) 12mg/dL (8-26) Creatinine 0.8mg/dL (0.7-1.3) 0.9mg/dL (0.7-1.3) Estimated GFR (Cockcroft-Gault) 102.3 89.3 Glucose Level 122mg/dL (70-99) 107mg/dL (70-99) Calcium Level 8.6mg/dL (8.5-10.1) 8.5mg/dL (8.5-10.1) Laboratory Tests Test 06/17/16 07:20 White Blood Count 10.8x10^3/uL (4.0-11.0) Red Blood Count 4.28x10^6/uL (4.30-5.70) Hemoglobin 12.8g/dL (13.0-17.5) Hematocrit 38.5% (39.0-53.0) Mean Corpuscular Volume 90fL (79-100) Mean Corpuscular Hemoglobin 30pg (25-35) Mean Corpuscular Hemoglobin Concent 33g/dL (31-37) Red Cell Distribution Width 13.3% (11.5-14.5) Platelet Count 176x10^3/uL (140-400) Neutrophils (%) (Auto) 79% (31-73) Lymphocytes (%) (Auto) 8% (24-48) Monocytes (%) (Auto) 11% (0-9) Eosinophils (%) (Auto) 2% (0-3) Basophils (%) (Auto) 1% (0-3) Neutrophils # (Auto) 8.5x10^3uL (1.8-7.7) Lymphocytes # (Auto) 0.9x10^3/uL (1.0-4.8) Monocytes # (Auto) 1.2x10^3/uL (0.0-1.1) Eosinophils # (Auto) 0.2x10^3/uL (0.0-0.7) Basophils # (Auto) 0.1x10^3/uL (0.0-0.2) Prothrombin Time 14.3SEC (11.7-14.0) Prothromb Time International Ratio 1.2 (0.8-1.1) Sodium Level 137mmol/L (136-145) Potassium Level 3.8mmol/L (3.5-5.1) Chloride Level 105mmol/L (98-107) Carbon Dioxide Level 27mmol/L (21-32) Anion Gap 5 (6-14) Blood Urea Nitrogen 12mg/dL (8-26) Creatinine 0.9mg/dL (0.7-1.3) Estimated GFR (Cockcroft-Gault) 89.3 Glucose Level 107mg/dL (70-99) Calcium Level 8.5mg/dL (8.5-10.1) Microbiology 06/13/16 Urine Culture - Final, Complete 06/13/16 Urine Culture Result 1 (GLENN) - Final, Complete Medications Current Medications Sodium Chloride (Iv Sodium Chloride 0.9% 1000ml Bag) 1,000 ml @ 100 mls/hr 1X ONCE IV Last administered on 06/13/16 13:45; Start 06/13/16 at 13:45; Stop at 23:44; Status DC Phytonadione (Mephyton) 10 mg 1X ONCE PO Last administered on 06/13/16 15:03; Start 06/13/16 at 15:00; Stop 06/13/16 at 15:01; Status DC Ondansetron HCl 4 mg 4 mg PRN Q8HRS PRN IV NAUSEA/VOMITING; Start 06/13/16 at 16 :15; Stop 06/14/16 at 16:14; Status DC Sodium Chloride (Iv Sodium Chloride 0.9% 1000ml Bag) 1,000 ml @ 100 mls/hr Q10H IV Last administered on 06/14/16 05:49; Start 06/13/16 at 16:10; Stop at 13:20; Status DC Morphine Sulfate 2 mg 1X ONCE IV Last administered on 06/13/16 18:08; Start at 18:30; Stop 06/13/16 at 18:31; Status DC Oxycodone/ Acetaminophen (Percocet 5/325) 1 tab PRN Q4HRS PRN PO PAIN Last administered on 06/15/16 23:18; Start 06/13/16 at 18:00 Oxycodone/ Acetaminophen (Percocet 5/325) 2 tab PRN Q4HRS PRN PO PAIN Last administered on 06/17/16 04:50; Start 06/13/16 at 18:00 Metoprolol Succinate (Toprol Xl) 25 mg DAILY PO Last administered on 06/17/16 10:04; Start 06/14/16 at 09:00 Lorazepam 2 mg 2 mg PRN Q4HRS PRN IV ANXIETY / AGITATION; Start 06/13/16 at 19: 45 Levetiracetam 500 mg/Sodium Chloride 105 ml @ 400 mls/hr PRN Q12HRS PRN IV SEIZURES; Start 06/13/16 at 19:45 Potassium Chloride/Sodium Chloride (KCl 20 Meq-0.45% Nacl) 1,000 ml @ 100 mls/ hr Q10H IV Last administered on 06/17/16 03:24; Start 06/14/16 at 13:30 Warfarin Sodium (Coumadin Per Pharmacy) 1 each PRN DAILY PRN MC SEE COMMENTS Last administered on 06/14/16 16:23; Start 06/14/16 at 16:00 Warfarin Sodium 2.5 mg 2.5 mg 1X WARF ONCE PO ; Start 06/14/16 at 17:00; Stop at 17:01; Status Cancel Bacitracin/Sodium Chloride (Iv Sodium Chloride 0.9% 1000ml Bag) 1,000 ml @ 1, 000 mls/hr 1X PERIOP ONCE IRR Last administered on 06/15/16 12:41; Start at 10:00; Stop 06/15/16 at 10:59; Status DC Ondansetron HCl (Zofran) 4 mg PRN Q6HRS PRN IV Nausea; Start 06/15/16 at 10:00; Stop 06/16/16 at 09:59; Status DC Fentanyl Citrate (Fentanyl 2ml Vial) 25 mcg PRN Q5MIN PRN IV MILD PAIN; Start 06/15/16 at 10:00; Stop 06/16/16 at 09:59; Status DC Fentanyl Citrate (Fentanyl 2ml Vial) 50 mcg PRN Q5MIN PRN IV MODERATE PAIN; Start 06/15/16 at 10:00; Stop 06/16/16 at 09:59; Status DC Morphine Sulfate 1 mg 1 mg PRN Q10MIN PRN IV SEVERE PAIN; Start 06/15/16 at 10: 00; Stop 06/16/16 at 09:59; Status DC Lactated Ringer's (Iv Lactated Ringers) 1,000 ml @ 30 mls/hr Q24H IV ; Start at 09:47; Stop 06/15/16 at 21:46; Status DC Lidocaine HCl 2 ml 1X PRN PRN ID IV START; Start 06/15/16 at 10:00; Stop at 09:59; Status DC Hydromorphone HCl (Dilaudid) 0.5 mg PRN Q10MIN PRN IV SEV PAIN,Second choice; Start 06/15/16 at 10:00; Stop 06/16/16 at 09:59; Status DC Prochlorperazine Edisylate (Compazine) 5 mg PACU PRN PRN IV NAUSEA; Start at 10:00; Stop 06/16/16 at 09:59; Status DC Phytonadione (Vitamin K) 2 mg 1X ONCE SQ Last administered on 06/15/16t 11:21; Start 06/15/16 at 09:45; Stop 06/15/16 at 09:57; Status DC Dexamethasone Sodium Phosphate (Decadron) 20 mg STK-MED ONCE .ROUTE ; Start 06/15 at 10:26; Stop 06/15/16 at 10:27; Status DC Ondansetron HCl (Zofran) 4 mg STK-MED ONCE .ROUTE ; Start 06/15/16 at 10:26; Stop 06/15/16 at 10:27; Status DC Rocuronium [place] 50 mg 50 mg STK-MED ONCE .ROUTE ; Start 06/15/16 at 10:26; Stop 06/15/16 at 10:27; Status DC Propofol (Diprivan) 20 ml @ As Directed STK-MED ONCE IV ; Start 06/15/16 at 10:26 ; Stop 06/15/16 at 10:27; Status DC Lidocaine HCl 100 mg STK-MED ONCE .ROUTE ; Start 06/15/16 at 10:26; Stop 06/15/16 at 10:27; Status DC Fentanyl Citrate (Fentanyl 2ml Vial) 100 mcg STK-MED ONCE .ROUTE ; Start at 10:26; Stop 06/15/16 at 10:27; Status DC Thrombin 20,000 unit STK-MED ONCE TP Last administered on 06/15/16 12:41; Start 06/15/16 at 10:47; Stop 06/15/16 at 10:48; Status DC Gelatin (Gelfoam Size 100) 1 each STK-MED ONCE .ROUTE Last administered on 06/15 12:41; Start 06/15/16 at 10:48; Stop 06/15/16 at 10:49; Status DC Bupivacaine HCl/ Epinephrine Bitart (Sensorcaine-Epi 0.25%-1:132471 Mpf) 30 ml STK-MED ONCE .ROUTE Last administered on 06/15/16 12:41; Start 06/15/16 at 10:48 ; Stop 06/15/16 at 10:49; Status DC Cellulose 1 each STK-MED ONCE .ROUTE ; Start 06/15/16 at 10:49; Stop 06/15/16 at 10:50; Status DC Potassium Chloride 20 meq 20 meq 1X ONCE PO Last administered on 06/15/16 11: 21; Start 06/15/16 at 11:15; Stop 06/15/16 at 11:16; Status DC Cefazolin Sodium/ Dextrose (Ancef 2gm Premix) 50 ml @ 100 mls/hr 1X PREOP PRN IV PER PROTOCOL Last administered on 06/15/16 12:56; Start 06/16/16 at 06:00; Stop 06/16/16 at 18:00; Status DC Ephedrine Sulfate 50 mg STK-MED ONCE IV ; Start 06/15/16 at 13:04; Stop 06/15/16 at 13:05; Status DC Glycopyrrolate (Robinul) 1 mg STK-MED ONCE .ROUTE ; Start 06/15/16 at 13:39; Stop 06/15/16 at 13:40; Status DC Neostigmine Methylsulfate 5 mg STK-MED ONCE .ROUTE ; Start 06/15/16 at 13:39; Stop 06/15/16 at 13:40; Status DC Fentanyl Citrate (Fentanyl 2ml Vial) 100 mcg STK-MED ONCE .ROUTE ; Start at 13:55; Stop 06/15/16 at 13:56; Status DC Sevoflurane (Ultane) 30 ml STK-MED ONCE IH ; Start 06/15/16 at 13:55; Stop at 13:56; Status DC Sevoflurane (Ultane) 60 ml STK-MED ONCE IH ; Start 06/15/16 at 13:55; Stop at 13:56; Status DC Warfarin Sodium (Coumadin - No Dose Today) 1 each 1X WARF ONCE MC Last administered on 06/15/16 16:00; Start 06/15/16 at 16:00; Stop 06/15/16 at 16:01; Status DC Cefazolin Sodium/ Dextrose (Ancef 2gm Premix) 2 gm STK-MED ONCE IV ; Start at 13:00; Stop 06/16/16 at 08:05; Status DC Famotidine (Pepcid) 20 mg BID IVP ; Start 06/16/16 at 21:00; Stop 06/16/16 at 21 :00; Status DC Famotidine (Pepcid) 20 mg BID PO Last administered on 06/17/16 10:03; Start at 13:00 Active Scripts Active Reported Coumadin (Warfarin Sodium) 5 Mg Tablet 1 Tab PO DAILY Metoprolol Succinate ( Xl ) (Metoprolol Succinate) 25 Mg Tab.er.24h 25 Mg PO DAILY Vitals/I & O Vital Sign - Last 24 Hours 06/16/16 06/16/16 06/16/16 06/16/16 11:00 12:00 16:00 17:00 Temp 98.5 98.4 97.7 98.5 98.4 97.7 Pulse 73 70 72 77 Resp B/P 84/63 102/59 96/59 99/60 Pulse Ox 98 98 97 95 O2 Delivery Room Air Room Air Room Air Room Air 06/16/16 06/16/16 06/16/16 06/16/16 19:00 20:00 20:53 23:00 Temp 98.0 97.9 98.0 97.9 Pulse 81 90 Resp 18 18 B/P 116/69 130/90 Pulse Ox 96 96 96 O2 Delivery Room Air Room Air Room Air Room Air 06/17/16 06/17/16 06/17/16 06/17/16 03:02 04:50 05:50 08:00 Temp 99.0 96.8 99.0 96.8 Pulse 80 72 Resp 18 20 20 16 B/P 143/81 119/68 Pulse Ox 95 95 95 95 O2 Delivery Room Air Room Air Room Air Room Air 06/17/16 10:04 Pulse 72 B/P 119/68 Intake and Output 06/16/16 06/16/16 06/17/16 15:00 23:00 07:00 Intake Total 537 ml Output Total 675 ml 450 ml 2300 ml Balance -675 ml 87 ml -2300 ml EDWARD AMBROSE MD Jun 17, 2016 10:32
[2016-06-17 10:57] VITALS: BP 120/77
--- NOTE | 2016-06-17 12:06 | PDOC ---
PROGRESS NOTES Chief Complaint Chief Complaint cc: headaches - Bilateral subdural hematoma - Headaches better - Marfan's syndrome with hx of valve replacements and eye surgeries - Left eye blindness - HTN stable, -Hypokalemia Plan s/p [place] hole left, on Coumadin, dose goal 2.5.3.5 labs reviwed, clinically better, no acute symptoms BP well controlled. repeat CT in am PT/OT DC planning based on NS recommendations, Keppra If seizures. History of Present Illness History of Present Illness eating ok no headaches. Vitals Vitals Vital Signs Date Time Temp Pulse Resp B/P Pulse Ox O2 Delivery O2 Flow Rate FiO2 06/17/16 10:57 97.5 74 20 120/77 95 Room Air 97.5 Physical Exam General: Alert, Oriented X3, Cooperative, No acute distress Heart: Regular rate, Normal S1 Lungs: Clear, Other Abdomen: Normal bowel sounds Extremities: No clubbing, No cyanosis, No edema Skin: No rashes, No breakdown, No significant lesion Labs LABS Laboratory Tests Test 06/17/16 07:20 White Blood Count 10.8x10^3/uL (4.0-11.0) Red Blood Count 4.28x10^6/uL (4.30-5.70) Hemoglobin 12.8g/dL (13.0-17.5) Hematocrit 38.5% (39.0-53.0) Mean Corpuscular Volume 90fL (79-100) Mean Corpuscular Hemoglobin 30pg (25-35) Mean Corpuscular Hemoglobin Concent 33g/dL (31-37) Red Cell Distribution Width 13.3% (11.5-14.5) Platelet Count 176x10^3/uL (140-400) Neutrophils (%) (Auto) 79% (31-73) Lymphocytes (%) (Auto) 8% (24-48) Monocytes (%) (Auto) 11% (0-9) Eosinophils (%) (Auto) 2% (0-3) Basophils (%) (Auto) 1% (0-3) Neutrophils # (Auto) 8.5x10^3uL (1.8-7.7) Lymphocytes # (Auto) 0.9x10^3/uL (1.0-4.8) Monocytes # (Auto) 1.2x10^3/uL (0.0-1.1) Eosinophils # (Auto) 0.2x10^3/uL (0.0-0.7) Basophils # (Auto) 0.1x10^3/uL (0.0-0.2) Prothrombin Time 14.3SEC (11.7-14.0) Prothromb Time International Ratio 1.2 (0.8-1.1) Sodium Level 137mmol/L (136-145) Potassium Level 3.8mmol/L (3.5-5.1) Chloride Level 105mmol/L (98-107) Carbon Dioxide Level 27mmol/L (21-32) Anion Gap 5 (6-14) Blood Urea Nitrogen 12mg/dL (8-26) Creatinine 0.9mg/dL (0.7-1.3) Estimated GFR (Cockcroft-Gault) 89.3 Glucose Level 107mg/dL (70-99) Calcium Level 8.5mg/dL (8.5-10.1) Assessment and Plan Assessmemt and Plan Problems Medical Problems: (1) Subdural hematoma Status: Acute (2) Supratherapeutic INR Status: Acute Problems: Comment Review of Relevant I have reviewed the following items jordy (where applicable) has been applied. Labs Laboratory Tests Test 06/16/16 05:46 06/17/16 07:20 White Blood Count 8.7x10^3/uL (4.0-11.0) 10.8x10^3/uL (4.0-11.0) Red Blood Count 3.98x10^6/uL (4.30-5.70) 4.28x10^6/uL (4.30-5.70) Hemoglobin 11.9g/dL (13.0-17.5) 12.8g/dL (13.0-17.5) Hematocrit 35.6% (39.0-53.0) 38.5% (39.0-53.0) Mean Corpuscular Volume 90fL (79-100) 90fL (79-100) Mean Corpuscular Hemoglobin 30pg (25-35) 30pg (25-35) Mean Corpuscular Hemoglobin Concent 34g/dL (31-37) 33g/dL (31-37) Red Cell Distribution Width 13.3% (11.5-14.5) 13.3% (11.5-14.5) Platelet Count 167x10^3/uL (140-400) 176x10^3/uL (140-400) Neutrophils (%) (Auto) 79% (31-73) 79% (31-73) Lymphocytes (%) (Auto) 9% (24-48) 8% (24-48) Monocytes (%) (Auto) 12% (0-9) 11% (0-9) Eosinophils (%) (Auto) 0% (0-3) 2% (0-3) Basophils (%) (Auto) 0% (0-3) 1% (0-3) Neutrophils # (Auto) 6.9x10^3uL (1.8-7.7) 8.5x10^3uL (1.8-7.7) Lymphocytes # (Auto) 0.8x10^3/uL (1.0-4.8) 0.9x10^3/uL (1.0-4.8) Monocytes # (Auto) 1.1x10^3/uL (0.0-1.1) 1.2x10^3/uL (0.0-1.1) Eosinophils # (Auto) 0.0x10^3/uL (0.0-0.7) 0.2x10^3/uL (0.0-0.7) Basophils # (Auto) 0.0x10^3/uL (0.0-0.2) 0.1x10^3/uL (0.0-0.2) Prothrombin Time 16.0SEC (11.7-14.0) 14.3SEC (11.7-14.0) Prothromb Time International Ratio 1.4 (0.8-1.1) 1.2 (0.8-1.1) Sodium Level 139mmol/L (136-145) 137mmol/L (136-145) Potassium Level 4.1mmol/L (3.5-5.1) 3.8mmol/L (3.5-5.1) Chloride Level 104mmol/L (98-107) 105mmol/L (98-107) Carbon Dioxide Level 27mmol/L (21-32) 27mmol/L (21-32) Anion Gap 8 (6-14) 5 (6-14) Blood Urea Nitrogen 13mg/dL (8-26) 12mg/dL (8-26) Creatinine 0.8mg/dL (0.7-1.3) 0.9mg/dL (0.7-1.3) Estimated GFR (Cockcroft-Gault) 102.3 89.3 Glucose Level 122mg/dL (70-99) 107mg/dL (70-99) Calcium Level 8.6mg/dL (8.5-10.1) 8.5mg/dL (8.5-10.1) Laboratory Tests Test 06/17/16 07:20 White Blood Count 10.8x10^3/uL (4.0-11.0) Red Blood Count 4.28x10^6/uL (4.30-5.70) Hemoglobin 12.8g/dL (13.0-17.5) Hematocrit 38.5% (39.0-53.0) Mean Corpuscular Volume 90fL (79-100) Mean Corpuscular Hemoglobin 30pg (25-35) Mean Corpuscular Hemoglobin Concent 33g/dL (31-37) Red Cell Distribution Width 13.3% (11.5-14.5) Platelet Count 176x10^3/uL (140-400) Neutrophils (%) (Auto) 79% (31-73) Lymphocytes (%) (Auto) 8% (24-48) Monocytes (%) (Auto) 11% (0-9) Eosinophils (%) (Auto) 2% (0-3) Basophils (%) (Auto) 1% (0-3) Neutrophils # (Auto) 8.5x10^3uL (1.8-7.7) Lymphocytes # (Auto) 0.9x10^3/uL (1.0-4.8) Monocytes # (Auto) 1.2x10^3/uL (0.0-1.1) Eosinophils # (Auto) 0.2x10^3/uL (0.0-0.7) Basophils # (Auto) 0.1x10^3/uL (0.0-0.2) Prothrombin Time 14.3SEC (11.7-14.0) Prothromb Time International Ratio 1.2 (0.8-1.1) Sodium Level 137mmol/L (136-145) Potassium Level 3.8mmol/L (3.5-5.1) Chloride Level 105mmol/L (98-107) Carbon Dioxide Level 27mmol/L (21-32) Anion Gap 5 (6-14) Blood Urea Nitrogen 12mg/dL (8-26) Creatinine 0.9mg/dL (0.7-1.3) Estimated GFR (Cockcroft-Gault) 89.3 Glucose Level 107mg/dL (70-99) Calcium Level 8.5mg/dL (8.5-10.1) Microbiology 06/13/16 Urine Culture - Final, Complete 06/13/16 Urine Culture Result 1 (GLENN) - Final, Complete Medications Current Medications Sodium Chloride (Iv Sodium Chloride 0.9% 1000ml Bag) 1,000 ml @ 100 mls/hr 1X ONCE IV Last administered on 06/13/16 13:45; Start 06/13/16 at 13:45; Stop at 23:44; Status DC Phytonadione (Mephyton) 10 mg 1X ONCE PO Last administered on 06/13/16 15:03; Start 06/13/16 at 15:00; Stop 06/13/16 at 15:01; Status DC Ondansetron HCl 4 mg 4 mg PRN Q8HRS PRN IV NAUSEA/VOMITING; Start 06/13/16 at 16 :15; Stop 06/14/16 at 16:14; Status DC Sodium Chloride (Iv Sodium Chloride 0.9% 1000ml Bag) 1,000 ml @ 100 mls/hr Q10H IV Last administered on 06/14/16 05:49; Start 06/13/16 at 16:10; Stop at 13:20; Status DC Morphine Sulfate 2 mg 1X ONCE IV Last administered on 06/13/16 18:08; Start at 18:30; Stop 06/13/16 at 18:31; Status DC Oxycodone/ Acetaminophen (Percocet 5/325) 1 tab PRN Q4HRS PRN PO PAIN Last administered on 06/15/16 23:18; Start 06/13/16 at 18:00 Oxycodone/ Acetaminophen (Percocet 5/325) 2 tab PRN Q4HRS PRN PO PAIN Last administered on 06/17/16 04:50; Start 06/13/16 at 18:00 Metoprolol Succinate (Toprol Xl) 25 mg DAILY PO Last administered on 06/17/16 10:04; Start 06/14/16 at 09:00 Lorazepam 2 mg 2 mg PRN Q4HRS PRN IV ANXIETY / AGITATION; Start 06/13/16 at 19: 45 Levetiracetam 500 mg/Sodium Chloride 105 ml @ 400 mls/hr PRN Q12HRS PRN IV SEIZURES; Start 06/13/16 at 19:45 Potassium Chloride/Sodium Chloride (KCl 20 Meq-0.45% Nacl) 1,000 ml @ 100 mls/ hr Q10H IV Last administered on 06/17/16 03:24; Start 06/14/16 at 13:30 Warfarin Sodium (Coumadin Per Pharmacy) 1 each PRN DAILY PRN MC SEE COMMENTS Last administered on 06/14/16 16:23; Start 06/14/16 at 16:00 Warfarin Sodium 2.5 mg 2.5 mg 1X WARF ONCE PO ; Start 06/14/16 at 17:00; Stop at 17:01; Status Cancel Bacitracin/Sodium Chloride (Iv Sodium Chloride 0.9% 1000ml Bag) 1,000 ml @ 1, 000 mls/hr 1X PERIOP ONCE IRR Last administered on 06/15/16 12:41; Start at 10:00; Stop 06/15/16 at 10:59; Status DC Ondansetron HCl (Zofran) 4 mg PRN Q6HRS PRN IV Nausea; Start 06/15/16 at 10:00; Stop 06/16/16 at 09:59; Status DC Fentanyl Citrate (Fentanyl 2ml Vial) 25 mcg PRN Q5MIN PRN IV MILD PAIN; Start 06/15/16 at 10:00; Stop 06/16/16 at 09:59; Status DC Fentanyl Citrate (Fentanyl 2ml Vial) 50 mcg PRN Q5MIN PRN IV MODERATE PAIN; Start 06/15/16 at 10:00; Stop 06/16/16 at 09:59; Status DC Morphine Sulfate 1 mg 1 mg PRN Q10MIN PRN IV SEVERE PAIN; Start 06/15/16 at 10: 00; Stop 06/16/16 at 09:59; Status DC Lactated Ringer's (Iv Lactated Ringers) 1,000 ml @ 30 mls/hr Q24H IV ; Start at 09:47; Stop 06/15/16 at 21:46; Status DC Lidocaine HCl 2 ml 1X PRN PRN ID IV START; Start 06/15/16 at 10:00; Stop at 09:59; Status DC Hydromorphone HCl (Dilaudid) 0.5 mg PRN Q10MIN PRN IV SEV PAIN,Second choice; Start 06/15/16 at 10:00; Stop 06/16/16 at 09:59; Status DC Prochlorperazine Edisylate (Compazine) 5 mg PACU PRN PRN IV NAUSEA; Start at 10:00; Stop 06/16/16 at 09:59; Status DC Phytonadione (Vitamin K) 2 mg 1X ONCE SQ Last administered on 06/15/16t 11:21; Start 06/15/16 at 09:45; Stop 06/15/16 at 09:57; Status DC Dexamethasone Sodium Phosphate (Decadron) 20 mg STK-MED ONCE .ROUTE ; Start 06/15 at 10:26; Stop 06/15/16 at 10:27; Status DC Ondansetron HCl (Zofran) 4 mg STK-MED ONCE .ROUTE ; Start 06/15/16 at 10:26; Stop 06/15/16 at 10:27; Status DC Rocuronium [place] 50 mg 50 mg STK-MED ONCE .ROUTE ; Start 06/15/16 at 10:26; Stop 06/15/16 at 10:27; Status DC Propofol (Diprivan) 20 ml @ As Directed STK-MED ONCE IV ; Start 06/15/16 at 10:26 ; Stop 06/15/16 at 10:27; Status DC Lidocaine HCl 100 mg STK-MED ONCE .ROUTE ; Start 06/15/16 at 10:26; Stop 06/15/16 at 10:27; Status DC Fentanyl Citrate (Fentanyl 2ml Vial) 100 mcg STK-MED ONCE .ROUTE ; Start at 10:26; Stop 06/15/16 at 10:27; Status DC Thrombin 20,000 unit STK-MED ONCE TP Last administered on 06/15/16 12:41; Start 06/15/16 at 10:47; Stop 06/15/16 at 10:48; Status DC Gelatin (Gelfoam Size 100) 1 each STK-MED ONCE .ROUTE Last administered on 06/15 12:41; Start 06/15/16 at 10:48; Stop 06/15/16 at 10:49; Status DC Bupivacaine HCl/ Epinephrine Bitart (Sensorcaine-Epi 0.25%-1:315387 Mpf) 30 ml STK-MED ONCE .ROUTE Last administered on 06/15/16 12:41; Start 06/15/16 at 10:48 ; Stop 06/15/16 at 10:49; Status DC Cellulose 1 each STK-MED ONCE .ROUTE ; Start 06/15/16 at 10:49; Stop 06/15/16 at 10:50; Status DC Potassium Chloride 20 meq 20 meq 1X ONCE PO Last administered on 06/15/16 11: 21; Start 06/15/16 at 11:15; Stop 06/15/16 at 11:16; Status DC Cefazolin Sodium/ Dextrose (Ancef 2gm Premix) 50 ml @ 100 mls/hr 1X PREOP PRN IV PER PROTOCOL Last administered on 06/15/16 12:56; Start 06/16/16 at 06:00; Stop 06/16/16 at 18:00; Status DC Ephedrine Sulfate 50 mg STK-MED ONCE IV ; Start 06/15/16 at 13:04; Stop 06/15/16 at 13:05; Status DC Glycopyrrolate (Robinul) 1 mg STK-MED ONCE .ROUTE ; Start 06/15/16 at 13:39; Stop 06/15/16 at 13:40; Status DC Neostigmine Methylsulfate 5 mg STK-MED ONCE .ROUTE ; Start 06/15/16 at 13:39; Stop 06/15/16 at 13:40; Status DC Fentanyl Citrate (Fentanyl 2ml Vial) 100 mcg STK-MED ONCE .ROUTE ; Start at 13:55; Stop 06/15/16 at 13:56; Status DC Sevoflurane (Ultane) 30 ml STK-MED ONCE IH ; Start 06/15/16 at 13:55; Stop at 13:56; Status DC Sevoflurane (Ultane) 60 ml STK-MED ONCE IH ; Start 06/15/16 at 13:55; Stop at 13:56; Status DC Warfarin Sodium (Coumadin - No Dose Today) 1 each 1X WARF ONCE MC Last administered on 06/15/16 16:00; Start 06/15/16 at 16:00; Stop 06/15/16 at 16:01; Status DC Cefazolin Sodium/ Dextrose (Ancef 2gm Premix) 2 gm STK-MED ONCE IV ; Start at 13:00; Stop 06/16/16 at 08:05; Status DC Famotidine (Pepcid) 20 mg BID IVP ; Start 06/16/16 at 21:00; Stop 06/16/16 at 21 :00; Status DC Famotidine (Pepcid) 20 mg BID PO Last administered on 06/17/16t 10:03; Start at 13:00 Active Scripts Active Reported Coumadin (Warfarin Sodium) 5 Mg Tablet 1 Tab PO DAILY Metoprolol Succinate ( Xl ) (Metoprolol Succinate) 25 Mg Tab.er.24h 25 Mg PO DAILY Vitals/I & O Vital Sign - Last 24 Hours 06/16/16 06/16/16 06/16/16 06/16/16 16:00 17:00 19:00 20:00 Temp 98.4 97.7 98.0 98.4 97.7 98.0 Pulse 72 77 81 Resp 18 B/P 96/59 99/60 116/69 Pulse Ox 97 95 96 O2 Delivery Room Air Room Air Room Air Room Air 06/16/16 06/16/16 06/17/16 06/17/16 20:53 23:00 03:02 04:50 Temp 97.9 99.0 97.9 99.0 Pulse 90 80 Resp 20 18 18 20 B/P 130/90 143/81 Pulse Ox 96 96 95 95 O2 Delivery Room Air Room Air Room Air Room Air 06/17/16 06/17/16 06/17/16 06/17/16 05:50 08:00 08:15 10:04 Temp 96.8 96.8 Pulse 72 72 Resp 20 16 B/P 119/68 119/68 Pulse Ox 95 95 O2 Delivery Room Air Room Air Room Air 06/17/16 10:57 Temp 97.5 97.5 Pulse 74 Resp 20 B/P 120/77 Pulse Ox 95 O2 Delivery Room Air Intake and Output 06/16/16 06/16/16 06/17/16 15:00 23:00 07:00 Intake Total 537 ml Output Total 675 ml 450 ml 2300 ml Balance -675 ml 87 ml -2300 ml CHRIS HARDIN MD Jun 17, 2016 12:06
--- NOTE | 2016-06-17 14:06 | PDOC ---
CARDIO Progress Notes Date and Time Date of Service 06/17/16 Time of Evaluation 1345 Subjective Subjective: No Chest Pain, No shortness of breath, No Palpitations, Other ( resting comfortably. No REED) Vitals Vitals Vital Signs Date Time Temp Pulse Resp B/P Pulse Ox O2 Delivery O2 Flow Rate FiO2 06/17/16 10:57 97.5 74 20 120/77 95 Room Air 97.5 Weight Weight [ ] Input and Output Intake and Output Intake and Output 06/17/16 07:00 Intake Total 537 ml Output Total 3425 ml Balance -2888 ml Intake Oral 250 ml IV Total 287 ml Output Urine Total 3425 ml Laboratory Labs Laboratory Tests Test 06/17/16 07:20 White Blood Count 10.8x10^3/uL (4.0-11.0) Red Blood Count 4.28x10^6/uL (4.30-5.70) Hemoglobin 12.8g/dL (13.0-17.5) Hematocrit 38.5% (39.0-53.0) Mean Corpuscular Volume 90fL (79-100) Mean Corpuscular Hemoglobin 30pg (25-35) Mean Corpuscular Hemoglobin Concent 33g/dL (31-37) Red Cell Distribution Width 13.3% (11.5-14.5) Platelet Count 176x10^3/uL (140-400) Neutrophils (%) (Auto) 79% (31-73) Lymphocytes (%) (Auto) 8% (24-48) Monocytes (%) (Auto) 11% (0-9) Eosinophils (%) (Auto) 2% (0-3) Basophils (%) (Auto) 1% (0-3) Neutrophils # (Auto) 8.5x10^3uL (1.8-7.7) Lymphocytes # (Auto) 0.9x10^3/uL (1.0-4.8) Monocytes # (Auto) 1.2x10^3/uL (0.0-1.1) Eosinophils # (Auto) 0.2x10^3/uL (0.0-0.7) Basophils # (Auto) 0.1x10^3/uL (0.0-0.2) Prothrombin Time 14.3SEC (11.7-14.0) Prothromb Time International Ratio 1.2 (0.8-1.1) Sodium Level 137mmol/L (136-145) Potassium Level 3.8mmol/L (3.5-5.1) Chloride Level 105mmol/L (98-107) Carbon Dioxide Level 27mmol/L (21-32) Anion Gap 5 (6-14) Blood Urea Nitrogen 12mg/dL (8-26) Creatinine 0.9mg/dL (0.7-1.3) Estimated GFR (Cockcroft-Gault) 89.3 Glucose Level 107mg/dL (70-99) Calcium Level 8.5mg/dL (8.5-10.1) Microbiology Micro Microbiology 06/13/16 Urine Culture - Final, Complete 06/13/16 Urine Culture Result 1 (GLENN) - Final, Complete Physical Exam HEENT: Neck Supple W Full Motion, Other (left corneal scarring, drsg intact scalp) Chest: Symmetric LUNGS: Clear to Auscultation Heart: S1S2, RRR Abdomen: Soft N/T Extremities: No Edema Neurology: alert, follow commands Assessment Assessment 1. Bilateral SDH with initially supratherapeutic INR Status post nela hole Doing well. Continue post-op management per neurosurgery 2. Marfan's syndrome with dilated aortic sinus s/p aortic root replacement 08/2004. 3. s/p mechanical mitral and aortic valve replacement Stable. Anticoagulation resumed Echo 10/2008 revealed normal LVEF at 60-65% with no WMA. Both aortic and mitral valve well-seating with normal function repeat echo reveal EF 50-55%. Aortic and mitral valves appear to be well- seated. continue with medical management 4. Hypertension controlled. continue with current therapy. YANETH FERRIS APRN Jun 17, 2016 14:06
--- NOTE | 2016-06-17 14:42 | PDOC ---
PROGRESS NOTES Subjective Subjective resting in bed no distress Objective Objective Vital Signs Date Time Temp Pulse Resp B/P Pulse Ox O2 Delivery O2 Flow Rate FiO2 06/17/16 10:57 97.5 74 20 120/77 95 Room Air 97.5 06/16/16 01:00 2.0 Intake and Output 06/17/16 07:00 Intake Total 537 ml Output Total 3425 ml Balance -2888 ml Intake Oral 250 ml IV Total 287 ml Output Urine Total 3425 ml Physical Exam General: No acute distress, Other Neuro: Other (awakens to voice but not as alert as yesterday) Skin: Other (incision dry and navid intact) Assessment Assessment Problems Medical Problems: (1) Subdural hematoma Status: Acute (2) Supratherapeutic INR Status: Acute Plan Plan of Care ordered F/U CT head for AM Continue PT Resume AC today Comment Review of Relevant I have reviewed the following items jordy (where applicable) has been applied. Labs Laboratory Tests Test 06/16/16 05:46 06/17/16 07:20 White Blood Count 8.7x10^3/uL (4.0-11.0) 10.8x10^3/uL (4.0-11.0) Red Blood Count 3.98x10^6/uL (4.30-5.70) 4.28x10^6/uL (4.30-5.70) Hemoglobin 11.9g/dL (13.0-17.5) 12.8g/dL (13.0-17.5) Hematocrit 35.6% (39.0-53.0) 38.5% (39.0-53.0) Mean Corpuscular Volume 90fL (79-100) 90fL (79-100) Mean Corpuscular Hemoglobin 30pg (25-35) 30pg (25-35) Mean Corpuscular Hemoglobin Concent 34g/dL (31-37) 33g/dL (31-37) Red Cell Distribution Width 13.3% (11.5-14.5) 13.3% (11.5-14.5) Platelet Count 167x10^3/uL (140-400) 176x10^3/uL (140-400) Neutrophils (%) (Auto) 79% (31-73) 79% (31-73) Lymphocytes (%) (Auto) 9% (24-48) 8% (24-48) Monocytes (%) (Auto) 12% (0-9) 11% (0-9) Eosinophils (%) (Auto) 0% (0-3) 2% (0-3) Basophils (%) (Auto) 0% (0-3) 1% (0-3) Neutrophils # (Auto) 6.9x10^3uL (1.8-7.7) 8.5x10^3uL (1.8-7.7) Lymphocytes # (Auto) 0.8x10^3/uL (1.0-4.8) 0.9x10^3/uL (1.0-4.8) Monocytes # (Auto) 1.1x10^3/uL (0.0-1.1) 1.2x10^3/uL (0.0-1.1) Eosinophils # (Auto) 0.0x10^3/uL (0.0-0.7) 0.2x10^3/uL (0.0-0.7) Basophils # (Auto) 0.0x10^3/uL (0.0-0.2) 0.1x10^3/uL (0.0-0.2) Prothrombin Time 16.0SEC (11.7-14.0) 14.3SEC (11.7-14.0) Prothromb Time International Ratio 1.4 (0.8-1.1) 1.2 (0.8-1.1) Sodium Level 139mmol/L (136-145) 137mmol/L (136-145) Potassium Level 4.1mmol/L (3.5-5.1) 3.8mmol/L (3.5-5.1) Chloride Level 104mmol/L (98-107) 105mmol/L (98-107) Carbon Dioxide Level 27mmol/L (21-32) 27mmol/L (21-32) Anion Gap 8 (6-14) 5 (6-14) Blood Urea Nitrogen 13mg/dL (8-26) 12mg/dL (8-26) Creatinine 0.8mg/dL (0.7-1.3) 0.9mg/dL (0.7-1.3) Estimated GFR (Cockcroft-Gault) 102.3 89.3 Glucose Level 122mg/dL (70-99) 107mg/dL (70-99) Calcium Level 8.6mg/dL (8.5-10.1) 8.5mg/dL (8.5-10.1) Laboratory Tests Test 06/17/16 07:20 White Blood Count 10.8x10^3/uL (4.0-11.0) Red Blood Count 4.28x10^6/uL (4.30-5.70) Hemoglobin 12.8g/dL (13.0-17.5) Hematocrit 38.5% (39.0-53.0) Mean Corpuscular Volume 90fL (79-100) Mean Corpuscular Hemoglobin 30pg (25-35) Mean Corpuscular Hemoglobin Concent 33g/dL (31-37) Red Cell Distribution Width 13.3% (11.5-14.5) Platelet Count 176x10^3/uL (140-400) Neutrophils (%) (Auto) 79% (31-73) Lymphocytes (%) (Auto) 8% (24-48) Monocytes (%) (Auto) 11% (0-9) Eosinophils (%) (Auto) 2% (0-3) Basophils (%) (Auto) 1% (0-3) Neutrophils # (Auto) 8.5x10^3uL (1.8-7.7) Lymphocytes # (Auto) 0.9x10^3/uL (1.0-4.8) Monocytes # (Auto) 1.2x10^3/uL (0.0-1.1) Eosinophils # (Auto) 0.2x10^3/uL (0.0-0.7) Basophils # (Auto) 0.1x10^3/uL (0.0-0.2) Prothrombin Time 14.3SEC (11.7-14.0) Prothromb Time International Ratio 1.2 (0.8-1.1) Sodium Level 137mmol/L (136-145) Potassium Level 3.8mmol/L (3.5-5.1) Chloride Level 105mmol/L (98-107) Carbon Dioxide Level 27mmol/L (21-32) Anion Gap 5 (6-14) Blood Urea Nitrogen 12mg/dL (8-26) Creatinine 0.9mg/dL (0.7-1.3) Estimated GFR (Cockcroft-Gault) 89.3 Glucose Level 107mg/dL (70-99) Calcium Level 8.5mg/dL (8.5-10.1) Microbiology 06/13/16 Urine Culture - Final, Complete 06/13/16 Urine Culture Result 1 (GLENN) - Final, Complete Medications Current Medications Sodium Chloride (Iv Sodium Chloride 0.9% 1000ml Bag) 1,000 ml @ 100 mls/hr 1X ONCE IV Last administered on 06/13/16 13:45; Start 06/13/16 at 13:45; Stop at 23:44; Status DC Phytonadione (Mephyton) 10 mg 1X ONCE PO Last administered on 06/13/16 15:03; Start 06/13/16 at 15:00; Stop 06/13/16 at 15:01; Status DC Ondansetron HCl 4 mg 4 mg PRN Q8HRS PRN IV NAUSEA/VOMITING; Start 06/13/16 at 16 :15; Stop 06/14/16 at 16:14; Status DC Sodium Chloride (Iv Sodium Chloride 0.9% 1000ml Bag) 1,000 ml @ 100 mls/hr Q10H IV Last administered on 06/14/16 05:49; Start 06/13/16 at 16:10; Stop at 13:20; Status DC Morphine Sulfate 2 mg 1X ONCE IV Last administered on 06/13/16 18:08; Start at 18:30; Stop 06/13/16 at 18:31; Status DC Oxycodone/ Acetaminophen (Percocet 5/325) 1 tab PRN Q4HRS PRN PO PAIN Last administered on 06/15/16 23:18; Start 06/13/16 at 18:00 Oxycodone/ Acetaminophen (Percocet 5/325) 2 tab PRN Q4HRS PRN PO PAIN Last administered on 06/17/16 04:50; Start 06/13/16 at 18:00 Metoprolol Succinate (Toprol Xl) 25 mg DAILY PO Last administered on 06/17/16 10:04; Start 06/14/16 at 09:00 Lorazepam 2 mg 2 mg PRN Q4HRS PRN IV ANXIETY / AGITATION; Start 06/13/16 at 19: 45 Levetiracetam 500 mg/Sodium Chloride 105 ml @ 400 mls/hr PRN Q12HRS PRN IV SEIZURES; Start 06/13/16 at 19:45 Potassium Chloride/Sodium Chloride (KCl 20 Meq-0.45% Nacl) 1,000 ml @ 100 mls/ hr Q10H IV Last administered on 06/17/16 03:24; Start 06/14/16 at 13:30; Stop 06/17/16 at 12:24; Status DC Warfarin Sodium (Coumadin Per Pharmacy) 1 each PRN DAILY PRN MC SEE COMMENTS Last administered on 06/17/16 12:35; Start 06/14/16 at 16:00 Warfarin Sodium 2.5 mg 2.5 mg 1X WARF ONCE PO ; Start 06/14/16 at 17:00; Stop at 17:01; Status Cancel Bacitracin/Sodium Chloride (Iv Sodium Chloride 0.9% 1000ml Bag) 1,000 ml @ 1, 000 mls/hr 1X PERIOP ONCE IRR Last administered on 06/15/16 12:41; Start at 10:00; Stop 06/15/16 at 10:59; Status DC Ondansetron HCl (Zofran) 4 mg PRN Q6HRS PRN IV Nausea; Start 06/15/16 at 10:00; Stop 06/16/16 at 09:59; Status DC Fentanyl Citrate (Fentanyl 2ml Vial) 25 mcg PRN Q5MIN PRN IV MILD PAIN; Start 06/15/16 at 10:00; Stop 06/16/16 at 09:59; Status DC Fentanyl Citrate (Fentanyl 2ml Vial) 50 mcg PRN Q5MIN PRN IV MODERATE PAIN; Start 06/15/16 at 10:00; Stop 06/16/16 at 09:59; Status DC Morphine Sulfate 1 mg 1 mg PRN Q10MIN PRN IV SEVERE PAIN; Start 06/15/16 at 10: 00; Stop 06/16/16 at 09:59; Status DC Lactated Ringer's (Iv Lactated Ringers) 1,000 ml @ 30 mls/hr Q24H IV ; Start at 09:47; Stop 06/15/16 at 21:46; Status DC Lidocaine HCl 2 ml 1X PRN PRN ID IV START; Start 06/15/16 at 10:00; Stop at 09:59; Status DC Hydromorphone HCl (Dilaudid) 0.5 mg PRN Q10MIN PRN IV SEV PAIN,Second choice; Start 06/15/16 at 10:00; Stop 06/16/16 at 09:59; Status DC Prochlorperazine Edisylate (Compazine) 5 mg PACU PRN PRN IV NAUSEA; Start at 10:00; Stop 06/16/16 at 09:59; Status DC Phytonadione (Vitamin K) 2 mg 1X ONCE SQ Last administered on 06/15/16t 11:21; Start 06/15/16 at 09:45; Stop 06/15/16 at 09:57; Status DC Dexamethasone Sodium Phosphate (Decadron) 20 mg STK-MED ONCE .ROUTE ; Start 06/15 at 10:26; Stop 06/15/16 at 10:27; Status DC Ondansetron HCl (Zofran) 4 mg STK-MED ONCE .ROUTE ; Start 06/15/16 at 10:26; Stop 06/15/16 at 10:27; Status DC Rocuronium [place] 50 mg 50 mg STK-MED ONCE .ROUTE ; Start 06/15/16 at 10:26; Stop 06/15/16 at 10:27; Status DC Propofol (Diprivan) 20 ml @ As Directed STK-MED ONCE IV ; Start 06/15/16 at 10:26 ; Stop 06/15/16 at 10:27; Status DC Lidocaine HCl 100 mg STK-MED ONCE .ROUTE ; Start 06/15/16 at 10:26; Stop 06/15/16 at 10:27; Status DC Fentanyl Citrate (Fentanyl 2ml Vial) 100 mcg STK-MED ONCE .ROUTE ; Start at 10:26; Stop 06/15/16 at 10:27; Status DC Thrombin 20,000 unit STK-MED ONCE TP Last administered on 06/15/16t 12:41; Start 06/15/16 at 10:47; Stop 06/15/16 at 10:48; Status DC Gelatin (Gelfoam Size 100) 1 each STK-MED ONCE .ROUTE Last administered on 06/15 12:41; Start 06/15/16 at 10:48; Stop 06/15/16 at 10:49; Status DC Bupivacaine HCl/ Epinephrine Bitart (Sensorcaine-Epi 0.25%-1:332863 Mpf) 30 ml STK-MED ONCE .ROUTE Last administered on 06/15/16 12:41; Start 06/15/16 at 10:48 ; Stop 06/15/16 at 10:49; Status DC Cellulose 1 each STK-MED ONCE .ROUTE ; Start 06/15/16 at 10:49; Stop 06/15/16 at 10:50; Status DC Potassium Chloride 20 meq 20 meq 1X ONCE PO Last administered on 06/15/16 11: 21; Start 06/15/16 at 11:15; Stop 06/15/16 at 11:16; Status DC Cefazolin Sodium/ Dextrose (Ancef 2gm Premix) 50 ml @ 100 mls/hr 1X PREOP PRN IV PER PROTOCOL Last administered on 06/15/16 12:56; Start 06/16/16 at 06:00; Stop 06/16/16 at 18:00; Status DC Ephedrine Sulfate 50 mg STK-MED ONCE IV ; Start 06/15/16 at 13:04; Stop 06/15/16 at 13:05; Status DC Glycopyrrolate (Robinul) 1 mg STK-MED ONCE .ROUTE ; Start 06/15/16 at 13:39; Stop 06/15/16 at 13:40; Status DC Neostigmine Methylsulfate 5 mg STK-MED ONCE .ROUTE ; Start 06/15/16 at 13:39; Stop 06/15/16 at 13:40; Status DC Fentanyl Citrate (Fentanyl 2ml Vial) 100 mcg STK-MED ONCE .ROUTE ; Start at 13:55; Stop 06/15/16 at 13:56; Status DC Sevoflurane (Ultane) 30 ml STK-MED ONCE IH ; Start 06/15/16 at 13:55; Stop at 13:56; Status DC Sevoflurane (Ultane) 60 ml STK-MED ONCE IH ; Start 06/15/16 at 13:55; Stop at 13:56; Status DC Warfarin Sodium (Coumadin - No Dose Today) 1 each 1X WARF ONCE MC Last administered on 06/15/16 16:00; Start 06/15/16 at 16:00; Stop 06/15/16 at 16:01; Status DC Cefazolin Sodium/ Dextrose (Ancef 2gm Premix) 2 gm STK-MED ONCE IV ; Start at 13:00; Stop 06/16/16 at 08:05; Status DC Famotidine (Pepcid) 20 mg BID IVP ; Start 06/16/16 at 21:00; Stop 06/16/16 at 21 :00; Status DC Famotidine (Pepcid) 20 mg BID PO Last administered on 06/17/16t 10:03; Start at 13:00 Warfarin Sodium (Coumadin) 5 mg 1X WARF ONCE PO ; Start 06/17/16 at 16:00; Stop 06/17/16 at 16:01 Active Scripts Active Reported Coumadin (Warfarin Sodium) 5 Mg Tablet 1 Tab PO DAILY Metoprolol Succinate ( Xl ) (Metoprolol Succinate) 25 Mg Tab.er.24h 25 Mg PO DAILY Vitals/I & O Vital Sign - Last 24 Hours 06/16/16 06/16/16 06/16/16 06/16/16 16:00 17:00 19:00 20:00 Temp 98.4 97.7 98.0 98.4 97.7 98.0 Pulse 72 77 81 Resp 18 B/P 96/59 99/60 116/69 Pulse Ox 97 95 96 O2 Delivery Room Air Room Air Room Air Room Air 06/16/16 06/16/16 06/17/16 06/17/16 20:53 23:00 03:02 04:50 Temp 97.9 99.0 97.9 99.0 Pulse 90 80 Resp 20 18 18 20 B/P 130/90 143/81 Pulse Ox 96 96 95 95 O2 Delivery Room Air Room Air Room Air Room Air 06/17/16 06/17/16 06/17/16 06/17/16 05:50 08:00 08:15 10:04 Temp 96.8 96.8 Pulse 72 72 Resp 20 16 B/P 119/68 119/68 Pulse Ox 95 95 O2 Delivery Room Air Room Air Room Air 06/17/16 10:57 Temp 97.5 97.5 Pulse 74 Resp 20 B/P 120/77 Pulse Ox 95 O2 Delivery Room Air Intake and Output 06/16/16 06/16/16 06/17/16 15:00 23:00 07:00 Intake Total 537 ml Output Total 675 ml 450 ml 2300 ml Balance -675 ml 87 ml -2300 ml CONNIE ESTEVEZ MD Jun 17, 2016 14:41
--- NOTE | 2016-06-17 14:47 | CARD ---
APPROVED REPORT EXAM: Two-dimensional and M-mode echocardiogram with Doppler and color Doppler. Other Information Quality : Average Rhythm : NSR INDICATION Aortic Valve Disease Mitral Valve Disease 2D DIMENSIONS RVDd2.3 (2.9-3.5cm)Left Atrium(2D)3.9 (1.6-4.0cm) IVSd1.4 (0.7-1.1cm)Aortic Root(2D)2.5 (2.0-3.7cm) LVDd3.6 (3.9-5.9cm)LVOT Diameter2.1 (1.8-2.4cm) PWd1.3 (0.7-1.1cm)LVDs2.9 (2.5-4.0cm) SV21.3 ml Aortic Valve AoV Peak Montrell.260.3cm/sAoV VTI40.7cm AO Peak GR.27.1mmHgLVOT Peak Montrell.103.0cm/s LVOT VTI 14.14cmAO Mean GR.15mmHg OSCAR (VMAX)1.71gv4WTJ (VTI)1.17cm2 AI P 1/2 [id number] Mitral Valve MV E Leenvxsg068.8cm/sMV DECEL [id number] MV A Rwthpnxj799.5cm/sMV E Mean Gr.4mmHg MV PYM22gbO/A Ratio0.8 MV A Izfrnxkr73ctDVF (PHT)2.47cm2 TDI E/Lateral E'13.4E/Medial E'15.9 Pulmonary Valve PV Peak Yzulsntb42.6cm/sPV Peak Grad.4mmHg RVOT VTI13.9cm Tricuspid Valve TR P. Xxyrctzu050qr/sRAP [id number] TR Peak Gr.96lvVgLZJG38bnVx LEFT VENTRICLE The left ventricle is normal size. There is mild concentric left ventricular hypertrophy. Left ventri elisabeth systolic function is normal. The Ejection Fraction is 50-55%. Septal motion consistent with post- operative state. Tissue Doppler imaging reveals mild left ventricular diastolic dysfunction. Transmit ral Doppler flow pattern is Grade I-abnormal relaxation pattern. RIGHT VENTRICLE The right ventricle is normal size. The right ventricular systolic function is normal. ATRIA The left atrium size is normal. The right atrium size is normal. The interatrial septum is intact wit h no evidence for an atrial septal defect or patent foramen ovale as noted on 2-D or Doppler imaging. AORTIC VALVE Doppler and Color Flow revealed mild aortic regurgitation. Maximum pressure gradient of 27 mmHg and m cody pressure gradient of 15 mmHg across the prosthetic valve. There is a mechanical aortic valve pros thesis. MITRAL VALVE There is no mitral valve stenosis. Mean gradient of 4mmHG across the prosthetic valve. Doppler and Co dane Flow revealed mild mitral regurgitation. There is a mechanical mitral valve. TRICUSPID VALVE The tricuspid valve is normal in structure and function. Doppler and Color Flow revealed mild tricusp id regurgitation. The PA pressure was estimated at 31 mmHg. There is no tricuspid valve stenosis. PULMONIC VALVE The pulmonic valve is not well visualized. Doppler and Color Flow revealed no pulmonic valvular regur gitation. There is no pulmonic valvular stenosis. GREAT VESSELS The aortic root is normal in size. Pulmonary veins not recorded. The IVC is normal in size and collap ses >50% with inspiration. PERICARDIAL EFFUSION There is no evidence of significant pericardial effusion. Critical Notification Critical Value: No <Conclusion> Left ventricle systolic function is normal. The Ejection Fraction is 50-55%. Transmitral Doppler flow pattern is Grade I-abnormal relaxation pattern. Mechanical aortic valve prosthesis appears well seateed..Mild aortic regurgitation. Mechanical mitral valve appears well seated. Mild mitral regurgitation. Mild tricuspid regurgitation. The PA pressure was estimated at 31 mmHg. There is no evidence of significant pericardial effusion.
[2016-06-17 15:00] VITALS: BP 122/73
[2016-06-17] MEDS ORDERED: WARFARIN 5 MG TABLET. PO ONE (16:00)
[2016-06-17 19:00] VITALS: BP 118/74
[2016-06-17 23:00] VITALS: BP 119/75
[2016-06-18 03:00] VITALS: BP 102/58
[2016-06-18 04:58] LABS: BASO # 0.1 x10^3/uL (0.0-0.2); BASO % 1 % (0-3); EOS % 2 % (0-3); HEMATOCRIT 40.5 % (39.0-53.0); HEMOGLOBIN 13.7 g/dL (13.0-17.5); LYMPH # 0.9 x10^3/uL (1.0-4.8); LYMPH % 8 % (24-48); MEAN CORPUSCULAR HEMOGLOBIN 30 pg (25-35); MEAN CORPUSCULAR HGB CONC 34 g/dL (31-37); MEAN CORPUSCULAR VOLUME 89 fL (79-100); MONO % 11 % (0-9); NEUT % 78 % (31-73); PLATELET COUNT 198 x10^3/uL (140-400); RED BLOOD COUNT 4.56 x10^6/uL (4.30-5.70); RED CELL DISTRIBUTION WIDTH 13.4 % (11.5-14.5); WHITE BLOOD COUNT 10.7 x10^3/uL (4.0-11.0)
[2016-06-18 05:09] LABS: INR 1.1 (0.8-1.1); PROTHROMBIN TIME PATIENT 13.9 SEC (11.7-14.0)
[2016-06-18 05:36] LABS: CREATININE 0.9 mg/dL (0.7-1.3); GFR 89.3; POTASSIUM 3.7 mmol/L (3.5-5.1)
[2016-06-18 07:00] VITALS: BP 121/64
[2016-06-18] MEDS: FAMOTIDINE 20 MG TABLET. PO SCH ×2 (08:55→22:48)
[2016-06-18] MEDS: METOPROLOL SUCC 24HR ER 25 MG TAB.ER.24H. PO SCH (08:55)
--- NOTE | 2016-06-18 09:47 | PDOC ---
PROGRESS NOTES Subjective Subjective resting in bed, drowsy no distress breakfast tray at bedside, appears to have eaten half Objective Objective Vital Signs Date Time Temp Pulse Resp B/P Pulse Ox O2 Delivery O2 Flow Rate FiO2 06/18/16 08:55 78 121/64 06/18/16 07:00 96.4 16 95 Room Air 96.4 06/16/16 01:00 2.0 Intake and Output 06/18/16 07:00 Intake Total 200 ml Output Total 2500 ml Balance -2300 ml Intake Oral 200 ml Output Urine Total 2500 ml # Voids 1 Physical Exam General: Cooperative, No acute distress, Other (will awaken to voice but drowsy ) Neuro: Other (MIRANDA) Skin: Other (dressing dry and intact) Assessment Assessment Problems Medical Problems: (1) Subdural hematoma Status: Acute (2) Supratherapeutic INR Status: Acute Plan Plan of Care f/u CT pending continue PT labs noted, Coumadin restarted yesterday Comment Review of Relevant I have reviewed the following items jordy (where applicable) has been applied. Labs Laboratory Tests Test 06/17/16 07:20 06/18/16 04:30 White Blood Count 10.8x10^3/uL (4.0-11.0) 10.7x10^3/uL (4.0-11.0) Red Blood Count 4.28x10^6/uL (4.30-5.70) 4.56x10^6/uL (4.30-5.70) Hemoglobin 12.8g/dL (13.0-17.5) 13.7g/dL (13.0-17.5) Hematocrit 38.5% (39.0-53.0) 40.5% (39.0-53.0) Mean Corpuscular Volume 90fL (79-100) 89fL (79-100) Mean Corpuscular Hemoglobin 30pg (25-35) 30pg (25-35) Mean Corpuscular Hemoglobin Concent 33g/dL (31-37) 34g/dL (31-37) Red Cell Distribution Width 13.3% (11.5-14.5) 13.4% (11.5-14.5) Platelet Count 176x10^3/uL (140-400) 198x10^3/uL (140-400) Neutrophils (%) (Auto) 79% (31-73) 78% (31-73) Lymphocytes (%) (Auto) 8% (24-48) 8% (24-48) Monocytes (%) (Auto) 11% (0-9) 11% (0-9) Eosinophils (%) (Auto) 2% (0-3) 2% (0-3) Basophils (%) (Auto) 1% (0-3) 1% (0-3) Neutrophils # (Auto) 8.5x10^3uL (1.8-7.7) 8.4x10^3uL (1.8-7.7) Lymphocytes # (Auto) 0.9x10^3/uL (1.0-4.8) 0.9x10^3/uL (1.0-4.8) Monocytes # (Auto) 1.2x10^3/uL (0.0-1.1) 1.2x10^3/uL (0.0-1.1) Eosinophils # (Auto) 0.2x10^3/uL (0.0-0.7) 0.2x10^3/uL (0.0-0.7) Basophils # (Auto) 0.1x10^3/uL (0.0-0.2) 0.1x10^3/uL (0.0-0.2) Prothrombin Time 14.3SEC (11.7-14.0) 13.9SEC (11.7-14.0) Prothromb Time International Ratio 1.2 (0.8-1.1) 1.1 (0.8-1.1) Sodium Level 137mmol/L (136-145) 139mmol/L (136-145) Potassium Level 3.8mmol/L (3.5-5.1) 3.7mmol/L (3.5-5.1) Chloride Level 105mmol/L (98-107) 103mmol/L (98-107) Carbon Dioxide Level 27mmol/L (21-32) 26mmol/L (21-32) Anion Gap 5 (6-14) 10 (6-14) Blood Urea Nitrogen 12mg/dL (8-26) 13mg/dL (8-26) Creatinine 0.9mg/dL (0.7-1.3) 0.9mg/dL (0.7-1.3) Estimated GFR (Cockcroft-Gault) 89.3 89.3 Glucose Level 107mg/dL (70-99) 149mg/dL (70-99) Calcium Level 8.5mg/dL (8.5-10.1) 9.0mg/dL (8.5-10.1) Laboratory Tests Test 06/18/16 04:30 White Blood Count 10.7x10^3/uL (4.0-11.0) Red Blood Count 4.56x10^6/uL (4.30-5.70) Hemoglobin 13.7g/dL (13.0-17.5) Hematocrit 40.5% (39.0-53.0) Mean Corpuscular Volume 89fL (79-100) Mean Corpuscular Hemoglobin 30pg (25-35) Mean Corpuscular Hemoglobin Concent 34g/dL (31-37) Red Cell Distribution Width 13.4% (11.5-14.5) Platelet Count 198x10^3/uL (140-400) Neutrophils (%) (Auto) 78% (31-73) Lymphocytes (%) (Auto) 8% (24-48) Monocytes (%) (Auto) 11% (0-9) Eosinophils (%) (Auto) 2% (0-3) Basophils (%) (Auto) 1% (0-3) Neutrophils # (Auto) 8.4x10^3uL (1.8-7.7) Lymphocytes # (Auto) 0.9x10^3/uL (1.0-4.8) Monocytes # (Auto) 1.2x10^3/uL (0.0-1.1) Eosinophils # (Auto) 0.2x10^3/uL (0.0-0.7) Basophils # (Auto) 0.1x10^3/uL (0.0-0.2) Prothrombin Time 13.9SEC (11.7-14.0) Prothromb Time International Ratio 1.1 (0.8-1.1) Sodium Level 139mmol/L (136-145) Potassium Level 3.7mmol/L (3.5-5.1) Chloride Level 103mmol/L (98-107) Carbon Dioxide Level 26mmol/L (21-32) Anion Gap 10 (6-14) Blood Urea Nitrogen 13mg/dL (8-26) Creatinine 0.9mg/dL (0.7-1.3) Estimated GFR (Cockcroft-Gault) 89.3 Glucose Level 149mg/dL (70-99) Calcium Level 9.0mg/dL (8.5-10.1) Microbiology 06/13/16 Urine Culture - Final, Complete 06/13/16 Urine Culture Result 1 (GLENN) - Final, Complete Medications Current Medications Sodium Chloride (Iv Sodium Chloride 0.9% 1000ml Bag) 1,000 ml @ 100 mls/hr 1X ONCE IV Last administered on 06/13/16 13:45; Start 06/13/16 at 13:45; Stop at 23:44; Status DC Phytonadione (Mephyton) 10 mg 1X ONCE PO Last administered on 06/13/16 15:03; Start 06/13/16 at 15:00; Stop 06/13/16 at 15:01; Status DC Ondansetron HCl 4 mg 4 mg PRN Q8HRS PRN IV NAUSEA/VOMITING; Start 06/13/16 at 16 :15; Stop 06/14/16 at 16:14; Status DC Sodium Chloride (Iv Sodium Chloride 0.9% 1000ml Bag) 1,000 ml @ 100 mls/hr Q10H IV Last administered on 06/14/16 05:49; Start 06/13/16 at 16:10; Stop at 13:20; Status DC Morphine Sulfate 2 mg 1X ONCE IV Last administered on 06/13/16 18:08; Start at 18:30; Stop 06/13/16 at 18:31; Status DC Oxycodone/ Acetaminophen (Percocet 5/325) 1 tab PRN Q4HRS PRN PO PAIN Last administered on 06/15/16 23:18; Start 06/13/16 at 18:00 Oxycodone/ Acetaminophen (Percocet 5/325) 2 tab PRN Q4HRS PRN PO PAIN Last administered on 06/17/16 04:50; Start 06/13/16 at 18:00 Metoprolol Succinate (Toprol Xl) 25 mg DAILY PO Last administered on 06/18/16 08:55; Start 06/14/16 at 09:00 Lorazepam 2 mg 2 mg PRN Q4HRS PRN IV ANXIETY / AGITATION; Start 06/13/16 at 19: 45 Levetiracetam 500 mg/Sodium Chloride 105 ml @ 400 mls/hr PRN Q12HRS PRN IV SEIZURES; Start 06/13/16 at 19:45 Potassium Chloride/Sodium Chloride (KCl 20 Meq-0.45% Nacl) 1,000 ml @ 100 mls/ hr Q10H IV Last administered on 06/17/16 03:24; Start 06/14/16 at 13:30; Stop 06/17/16 at 12:24; Status DC Warfarin Sodium (Coumadin Per Pharmacy) 1 each PRN DAILY PRN MC SEE COMMENTS Last administered on 06/17/16 12:35; Start 06/14/16 at 16:00 Warfarin Sodium 2.5 mg 2.5 mg 1X WARF ONCE PO ; Start 06/14/16 at 17:00; Stop at 17:01; Status Cancel Bacitracin/Sodium Chloride (Iv Sodium Chloride 0.9% 1000ml Bag) 1,000 ml @ 1, 000 mls/hr 1X PERIOP ONCE IRR Last administered on 06/15/16 12:41; Start at 10:00; Stop 06/15/16 at 10:59; Status DC Ondansetron HCl (Zofran) 4 mg PRN Q6HRS PRN IV Nausea; Start 06/15/16 at 10:00; Stop 06/16/16 at 09:59; Status DC Fentanyl Citrate (Fentanyl 2ml Vial) 25 mcg PRN Q5MIN PRN IV MILD PAIN; Start 06/15/16 at 10:00; Stop 06/16/16 at 09:59; Status DC Fentanyl Citrate (Fentanyl 2ml Vial) 50 mcg PRN Q5MIN PRN IV MODERATE PAIN; Start 06/15/16 at 10:00; Stop 06/16/16 at 09:59; Status DC Morphine Sulfate 1 mg 1 mg PRN Q10MIN PRN IV SEVERE PAIN; Start 06/15/16 at 10: 00; Stop 06/16/16 at 09:59; Status DC Lactated Ringer's (Iv Lactated Ringers) 1,000 ml @ 30 mls/hr Q24H IV ; Start at 09:47; Stop 06/15/16 at 21:46; Status DC Lidocaine HCl 2 ml 1X PRN PRN ID IV START; Start 06/15/16 at 10:00; Stop at 09:59; Status DC Hydromorphone HCl (Dilaudid) 0.5 mg PRN Q10MIN PRN IV SEV PAIN,Second choice; Start 06/15/16 at 10:00; Stop 06/16/16 at 09:59; Status DC Prochlorperazine Edisylate (Compazine) 5 mg PACU PRN PRN IV NAUSEA; Start at 10:00; Stop 06/16/16 at 09:59; Status DC Phytonadione (Vitamin K) 2 mg 1X ONCE SQ Last administered on 06/15/16t 11:21; Start 06/15/16 at 09:45; Stop 06/15/16 at 09:57; Status DC Dexamethasone Sodium Phosphate (Decadron) 20 mg STK-MED ONCE .ROUTE ; Start 06/15 at 10:26; Stop 06/15/16 at 10:27; Status DC Ondansetron HCl (Zofran) 4 mg STK-MED ONCE .ROUTE ; Start 06/15/16 at 10:26; Stop 06/15/16 at 10:27; Status DC Rocuronium [place] 50 mg 50 mg STK-MED ONCE .ROUTE ; Start 06/15/16 at 10:26; Stop 06/15/16 at 10:27; Status DC Propofol (Diprivan) 20 ml @ As Directed STK-MED ONCE IV ; Start 06/15/16 at 10:26 ; Stop 06/15/16 at 10:27; Status DC Lidocaine HCl 100 mg STK-MED ONCE .ROUTE ; Start 06/15/16 at 10:26; Stop 06/15/16 at 10:27; Status DC Fentanyl Citrate (Fentanyl 2ml Vial) 100 mcg STK-MED ONCE .ROUTE ; Start at 10:26; Stop 06/15/16 at 10:27; Status DC Thrombin 20,000 unit STK-MED ONCE TP Last administered on 06/15/16 12:41; Start 06/15/16 at 10:47; Stop 06/15/16 at 10:48; Status DC Gelatin (Gelfoam Size 100) 1 each STK-MED ONCE .ROUTE Last administered on 06/15 12:41; Start 06/15/16 at 10:48; Stop 06/15/16 at 10:49; Status DC Bupivacaine HCl/ Epinephrine Bitart (Sensorcaine-Epi 0.25%-1:[id number] Mpf) 30 ml STK-MED ONCE .ROUTE Last administered on 06/15/16 12:41; Start 06/15/16 at 10:48 ; Stop 06/15/16 at 10:49; Status DC Cellulose 1 each STK-MED ONCE .ROUTE ; Start 06/15/16 at 10:49; Stop 06/15/16 at 10:50; Status DC Potassium Chloride 20 meq 20 meq 1X ONCE PO Last administered on 06/15/16 11: 21; Start 06/15/16 at 11:15; Stop 06/15/16 at 11:16; Status DC Cefazolin Sodium/ Dextrose (Ancef 2gm Premix) 50 ml @ 100 mls/hr 1X PREOP PRN IV PER PROTOCOL Last administered on 06/15/16 12:56; Start 06/16/16 at 06:00; Stop 06/16/16 at 18:00; Status DC Ephedrine Sulfate 50 mg STK-MED ONCE IV ; Start 06/15/16 at 13:04; Stop 06/15/16 at 13:05; Status DC Glycopyrrolate (Robinul) 1 mg STK-MED ONCE .ROUTE ; Start 06/15/16 at 13:39; Stop 06/15/16 at 13:40; Status DC Neostigmine Methylsulfate 5 mg STK-MED ONCE .ROUTE ; Start 06/15/16 at 13:39; Stop 06/15/16 at 13:40; Status DC Fentanyl Citrate (Fentanyl 2ml Vial) 100 mcg STK-MED ONCE .ROUTE ; Start at 13:55; Stop 06/15/16 at 13:56; Status DC Sevoflurane (Ultane) 30 ml STK-MED ONCE IH ; Start 06/15/16 at 13:55; Stop at 13:56; Status DC Sevoflurane (Ultane) 60 ml STK-MED ONCE IH ; Start 06/15/16 at 13:55; Stop at 13:56; Status DC Warfarin Sodium (Coumadin - No Dose Today) 1 each 1X WARF ONCE MC Last administered on 06/15/16 16:00; Start 06/15/16 at 16:00; Stop 06/15/16 at 16:01; Status DC Cefazolin Sodium/ Dextrose (Ancef 2gm Premix) 2 gm STK-MED ONCE IV ; Start at 13:00; Stop 06/16/16 at 08:05; Status DC Famotidine (Pepcid) 20 mg BID IVP ; Start 06/16/16 at 21:00; Stop 06/16/16 at 21 :00; Status DC Famotidine (Pepcid) 20 mg BID PO Last administered on 06/18/16 08:55; Start at 13:00 Warfarin Sodium (Coumadin) 5 mg 1X WARF ONCE PO Last administered on t 18:15; Start 06/17/16 at 16:00; Stop 06/17/16 at 16:01; Status DC Active Scripts Active Reported Coumadin (Warfarin Sodium) 5 Mg Tablet 1 Tab PO DAILY Metoprolol Succinate ( Xl ) (Metoprolol Succinate) 25 Mg Tab.er.24h 25 Mg PO DAILY Vitals/I & O Vital Sign - Last 24 Hours 06/17/16 06/17/16 06/17/16 06/17/16 10:04 10:57 15:00 19:00 Temp 97.5 97.3 98.2 97.5 97.3 98.2 Pulse 72 74 75 87 Resp 18 B/P 119/68 120/77 122/73 118/74 Pulse Ox 95 95 95 O2 Delivery Room Air Room Air Room Air 06/17/16 06/17/16 06/18/16 06/18/16 20:00 23:00 03:00 07:00 Temp 98.1 97.7 96.4 98.1 97.7 96.4 Pulse 84 83 78 Resp 18 16 B/P 119/75 102/58 121/64 Pulse Ox 94 95 95 O2 Delivery Room Air Room Air Room Air Room Air 06/18/16 08:55 Pulse 78 B/P 121/64 Intake and Output 06/17/16 06/17/16 06/18/16 15:00 23:00 07:00 Intake Total 200 ml Output Total 800 ml 850 ml 850 ml Balance -800 ml -850 ml -650 ml NATE LINCOLN APRN Jun 18, 2016 09:46
--- NOTE | 2016-06-18 10:38 | RAD ---
EXAM: Head CT without contrast. HISTORY: Subdural hematoma follow-up. TECHNIQUE: Computed tomographic images of the head were obtained without contrast. COMPARISON: 06/15/2016. FINDINGS: There are mixed acute or subacute on chronic bilateral cerebral convexity subdural hematomas. The right-sided hematoma measures approximately 8 mm in maximum thickness, not significantly changed compared to the prior study. There has been interval left frontal nela hole decompression of the left subdural hematoma, with associated small amount of pneumocephalus and overlying scalp skin navid. The left subdural hematoma measures approximately 6 mm in maximum thickness, decreased compared to the prior study. There is stable subdural hematoma along the falx and tentorium. There is been complete to near complete resolution of previously demonstrated rightward midline shift. The connelly-white matter differentiation pattern is intact. There is punctate hyperdensity within the region of the occipital horn of the left lateral ventricle, likely artifactual rather than due to intraventricular hemorrhage. The orbits, paranasal sinuses and mastoid air cells are unremarkable. IMPRESSION: 1. Interval left frontal calvarial nela hole decompression of an acute or subacute on chronic left cerebral convexity subdural hematoma, with associated slight decrease in hematoma thickness and complete to near complete resolution of prior midline shift. 2. Stable acute to subacute on chronic right cerebral convexity subdural hematoma and small subdural hematomas along the falx and tentorium. PQRS Compliance Statement: One or more of the following individualized dose reduction techniques were utilized for this examination: 1. Automated exposure control 2. Adjustment of the mA and/or kV according to patient size 3. Use of iterative reconstruction technique
[2016-06-18 10:43] VITALS: BP 123/66
--- NOTE | 2016-06-18 13:14 | PDOC ---
PROGRESS NOTES Chief Complaint Chief Complaint cc: headaches - Bilateral subdural hematoma - Headaches better - Confusion - Marfan's syndrome with hx of valve replacements and eye surgeries - Left eye blindness - HTN stable, -Hypokalemia Plan s/p Gema hole left, Coumadin resumed labs reviwed, clinically better, no acute symptoms BP well controlled. Follow NS and neurology recommendations. History of Present Illness History of Present Illness doing better no fever no chills headaches better Vitals Vitals Vital Signs Date Time Temp Pulse Resp B/P Pulse Ox O2 Delivery O2 Flow Rate FiO2 06/18/16 10:43 97.1 76 18 123/66 94 Room Air 97.1 Physical Exam General: Alert, Oriented X3, Cooperative, No acute distress, Other Heart: Regular rate, Normal S1 Lungs: Clear, Other Abdomen: Normal bowel sounds Extremities: No clubbing, No cyanosis, No edema Skin: Other (dressing dry and intact) Labs LABS Laboratory Tests Test 06/18/16 04:30 White Blood Count 10.7x10^3/uL (4.0-11.0) Red Blood Count 4.56x10^6/uL (4.30-5.70) Hemoglobin 13.7g/dL (13.0-17.5) Hematocrit 40.5% (39.0-53.0) Mean Corpuscular Volume 89fL (79-100) Mean Corpuscular Hemoglobin 30pg (25-35) Mean Corpuscular Hemoglobin Concent 34g/dL (31-37) Red Cell Distribution Width 13.4% (11.5-14.5) Platelet Count 198x10^3/uL (140-400) Neutrophils (%) (Auto) 78% (31-73) Lymphocytes (%) (Auto) 8% (24-48) Monocytes (%) (Auto) 11% (0-9) Eosinophils (%) (Auto) 2% (0-3) Basophils (%) (Auto) 1% (0-3) Neutrophils # (Auto) 8.4x10^3uL (1.8-7.7) Lymphocytes # (Auto) 0.9x10^3/uL (1.0-4.8) Monocytes # (Auto) 1.2x10^3/uL (0.0-1.1) Eosinophils # (Auto) 0.2x10^3/uL (0.0-0.7) Basophils # (Auto) 0.1x10^3/uL (0.0-0.2) Prothrombin Time 13.9SEC (11.7-14.0) Prothromb Time International Ratio 1.1 (0.8-1.1) Sodium Level 139mmol/L (136-145) Potassium Level 3.7mmol/L (3.5-5.1) Chloride Level 103mmol/L (98-107) Carbon Dioxide Level 26mmol/L (21-32) Anion Gap 10 (6-14) Blood Urea Nitrogen 13mg/dL (8-26) Creatinine 0.9mg/dL (0.7-1.3) Estimated GFR (Cockcroft-Gault) 89.3 Glucose Level 149mg/dL (70-99) Calcium Level 9.0mg/dL (8.5-10.1) Assessment and Plan Assessmemt and Plan Problems Medical Problems: (1) Subdural hematoma Status: Acute (2) Supratherapeutic INR Status: Acute Problems: Comment Review of Relevant I have reviewed the following items jordy (where applicable) has been applied. Labs Laboratory Tests Test 06/17/16 07:20 06/18/16 04:30 White Blood Count 10.8x10^3/uL (4.0-11.0) 10.7x10^3/uL (4.0-11.0) Red Blood Count 4.28x10^6/uL (4.30-5.70) 4.56x10^6/uL (4.30-5.70) Hemoglobin 12.8g/dL (13.0-17.5) 13.7g/dL (13.0-17.5) Hematocrit 38.5% (39.0-53.0) 40.5% (39.0-53.0) Mean Corpuscular Volume 90fL (79-100) 89fL (79-100) Mean Corpuscular Hemoglobin 30pg (25-35) 30pg (25-35) Mean Corpuscular Hemoglobin Concent 33g/dL (31-37) 34g/dL (31-37) Red Cell Distribution Width 13.3% (11.5-14.5) 13.4% (11.5-14.5) Platelet Count 176x10^3/uL (140-400) 198x10^3/uL (140-400) Neutrophils (%) (Auto) 79% (31-73) 78% (31-73) Lymphocytes (%) (Auto) 8% (24-48) 8% (24-48) Monocytes (%) (Auto) 11% (0-9) 11% (0-9) Eosinophils (%) (Auto) 2% (0-3) 2% (0-3) Basophils (%) (Auto) 1% (0-3) 1% (0-3) Neutrophils # (Auto) 8.5x10^3uL (1.8-7.7) 8.4x10^3uL (1.8-7.7) Lymphocytes # (Auto) 0.9x10^3/uL (1.0-4.8) 0.9x10^3/uL (1.0-4.8) Monocytes # (Auto) 1.2x10^3/uL (0.0-1.1) 1.2x10^3/uL (0.0-1.1) Eosinophils # (Auto) 0.2x10^3/uL (0.0-0.7) 0.2x10^3/uL (0.0-0.7) Basophils # (Auto) 0.1x10^3/uL (0.0-0.2) 0.1x10^3/uL (0.0-0.2) Prothrombin Time 14.3SEC (11.7-14.0) 13.9SEC (11.7-14.0) Prothromb Time International Ratio 1.2 (0.8-1.1) 1.1 (0.8-1.1) Sodium Level 137mmol/L (136-145) 139mmol/L (136-145) Potassium Level 3.8mmol/L (3.5-5.1) 3.7mmol/L (3.5-5.1) Chloride Level 105mmol/L (98-107) 103mmol/L (98-107) Carbon Dioxide Level 27mmol/L (21-32) 26mmol/L (21-32) Anion Gap 5 (6-14) 10 (6-14) Blood Urea Nitrogen 12mg/dL (8-26) 13mg/dL (8-26) Creatinine 0.9mg/dL (0.7-1.3) 0.9mg/dL (0.7-1.3) Estimated GFR (Cockcroft-Gault) 89.3 89.3 Glucose Level 107mg/dL (70-99) 149mg/dL (70-99) Calcium Level 8.5mg/dL (8.5-10.1) 9.0mg/dL (8.5-10.1) Laboratory Tests Test 06/18/16 04:30 White Blood Count 10.7x10^3/uL (4.0-11.0) Red Blood Count 4.56x10^6/uL (4.30-5.70) Hemoglobin 13.7g/dL (13.0-17.5) Hematocrit 40.5% (39.0-53.0) Mean Corpuscular Volume 89fL (79-100) Mean Corpuscular Hemoglobin 30pg (25-35) Mean Corpuscular Hemoglobin Concent 34g/dL (31-37) Red Cell Distribution Width 13.4% (11.5-14.5) Platelet Count 198x10^3/uL (140-400) Neutrophils (%) (Auto) 78% (31-73) Lymphocytes (%) (Auto) 8% (24-48) Monocytes (%) (Auto) 11% (0-9) Eosinophils (%) (Auto) 2% (0-3) Basophils (%) (Auto) 1% (0-3) Neutrophils # (Auto) 8.4x10^3uL (1.8-7.7) Lymphocytes # (Auto) 0.9x10^3/uL (1.0-4.8) Monocytes # (Auto) 1.2x10^3/uL (0.0-1.1) Eosinophils # (Auto) 0.2x10^3/uL (0.0-0.7) Basophils # (Auto) 0.1x10^3/uL (0.0-0.2) Prothrombin Time 13.9SEC (11.7-14.0) Prothromb Time International Ratio 1.1 (0.8-1.1) Sodium Level 139mmol/L (136-145) Potassium Level 3.7mmol/L (3.5-5.1) Chloride Level 103mmol/L (98-107) Carbon Dioxide Level 26mmol/L (21-32) Anion Gap 10 (6-14) Blood Urea Nitrogen 13mg/dL (8-26) Creatinine 0.9mg/dL (0.7-1.3) Estimated GFR (Cockcroft-Gault) 89.3 Glucose Level 149mg/dL (70-99) Calcium Level 9.0mg/dL (8.5-10.1) Microbiology 06/13/16 Urine Culture - Final, Complete 06/13/16 Urine Culture Result 1 (GLENN) - Final, Complete Medications Current Medications Sodium Chloride (Iv Sodium Chloride 0.9% 1000ml Bag) 1,000 ml @ 100 mls/hr 1X ONCE IV Last administered on 06/13/16 13:45; Start 06/13/16 at 13:45; Stop at 23:44; Status DC Phytonadione (Mephyton) 10 mg 1X ONCE PO Last administered on 06/13/16 15:03; Start 06/13/16 at 15:00; Stop 06/13/16 at 15:01; Status DC Ondansetron HCl 4 mg 4 mg PRN Q8HRS PRN IV NAUSEA/VOMITING; Start 06/13/16 at 16 :15; Stop 06/14/16 at 16:14; Status DC Sodium Chloride (Iv Sodium Chloride 0.9% 1000ml Bag) 1,000 ml @ 100 mls/hr Q10H IV Last administered on 06/14/16 05:49; Start 06/13/16 at 16:10; Stop at 13:20; Status DC Morphine Sulfate 2 mg 1X ONCE IV Last administered on 06/13/16 18:08; Start at 18:30; Stop 06/13/16 at 18:31; Status DC Oxycodone/ Acetaminophen (Percocet 5/325) 1 tab PRN Q4HRS PRN PO PAIN Last administered on 06/15/16 23:18; Start 06/13/16 at 18:00 Oxycodone/ Acetaminophen (Percocet 5/325) 2 tab PRN Q4HRS PRN PO PAIN Last administered on 06/17/16 04:50; Start 06/13/16 at 18:00 Metoprolol Succinate (Toprol Xl) 25 mg DAILY PO Last administered on 06/18/16 08:55; Start 06/14/16 at 09:00 Lorazepam 2 mg 2 mg PRN Q4HRS PRN IV ANXIETY / AGITATION; Start 06/13/16 at 19: 45 Levetiracetam 500 mg/Sodium Chloride 105 ml @ 400 mls/hr PRN Q12HRS PRN IV SEIZURES; Start 06/13/16 at 19:45 Potassium Chloride/Sodium Chloride (KCl 20 Meq-0.45% Nacl) 1,000 ml @ 100 mls/ hr Q10H IV Last administered on 06/17/16 03:24; Start 06/14/16 at 13:30; Stop 06/17/16 at 12:24; Status DC Warfarin Sodium (Coumadin Per Pharmacy) 1 each PRN DAILY PRN MC SEE COMMENTS Last administered on 06/18/16 12:30; Start 06/14/16 at 16:00 Warfarin Sodium 2.5 mg 2.5 mg 1X WARF ONCE PO ; Start 06/14/16 at 17:00; Stop at 17:01; Status Cancel Bacitracin/Sodium Chloride (Iv Sodium Chloride 0.9% 1000ml Bag) 1,000 ml @ 1, 000 mls/hr 1X PERIOP ONCE IRR Last administered on 06/15/16 12:41; Start at 10:00; Stop 06/15/16 at 10:59; Status DC Ondansetron HCl (Zofran) 4 mg PRN Q6HRS PRN IV Nausea; Start 06/15/16 at 10:00; Stop 06/16/16 at 09:59; Status DC Fentanyl Citrate (Fentanyl 2ml Vial) 25 mcg PRN Q5MIN PRN IV MILD PAIN; Start 06/15/16 at 10:00; Stop 06/16/16 at 09:59; Status DC Fentanyl Citrate (Fentanyl 2ml Vial) 50 mcg PRN Q5MIN PRN IV MODERATE PAIN; Start 06/15/16 at 10:00; Stop 06/16/16 at 09:59; Status DC Morphine Sulfate 1 mg 1 mg PRN Q10MIN PRN IV SEVERE PAIN; Start 06/15/16 at 10: 00; Stop 06/16/16 at 09:59; Status DC Lactated Ringer's (Iv Lactated Ringers) 1,000 ml @ 30 mls/hr Q24H IV ; Start at 09:47; Stop 06/15/16 at 21:46; Status DC Lidocaine HCl 2 ml 1X PRN PRN ID IV START; Start 06/15/16 at 10:00; Stop at 09:59; Status DC Hydromorphone HCl (Dilaudid) 0.5 mg PRN Q10MIN PRN IV SEV PAIN,Second choice; Start 06/15/16 at 10:00; Stop 06/16/16 at 09:59; Status DC Prochlorperazine Edisylate (Compazine) 5 mg PACU PRN PRN IV NAUSEA; Start at 10:00; Stop 06/16/16 at 09:59; Status DC Phytonadione (Vitamin K) 2 mg 1X ONCE SQ Last administered on 06/15/16t 11:21; Start 06/15/16 at 09:45; Stop 06/15/16 at 09:57; Status DC Dexamethasone Sodium Phosphate (Decadron) 20 mg STK-MED ONCE .ROUTE ; Start 06/15 at 10:26; Stop 06/15/16 at 10:27; Status DC Ondansetron HCl (Zofran) 4 mg STK-MED ONCE .ROUTE ; Start 06/15/16 at 10:26; Stop 06/15/16 at 10:27; Status DC Rocuronium [place] 50 mg 50 mg STK-MED ONCE .ROUTE ; Start 06/15/16 at 10:26; Stop 06/15/16 at 10:27; Status DC Propofol (Diprivan) 20 ml @ As Directed STK-MED ONCE IV ; Start 06/15/16 at 10:26 ; Stop 06/15/16 at 10:27; Status DC Lidocaine HCl 100 mg STK-MED ONCE .ROUTE ; Start 06/15/16 at 10:26; Stop 06/15/16 at 10:27; Status DC Fentanyl Citrate (Fentanyl 2ml Vial) 100 mcg STK-MED ONCE .ROUTE ; Start at 10:26; Stop 06/15/16 at 10:27; Status DC Thrombin 20,000 unit STK-MED ONCE TP Last administered on 06/15/16 12:41; Start 06/15/16 at 10:47; Stop 06/15/16 at 10:48; Status DC Gelatin (Gelfoam Size 100) 1 each STK-MED ONCE .ROUTE Last administered on 06/15 12:41; Start 06/15/16 at 10:48; Stop 06/15/16 at 10:49; Status DC Bupivacaine HCl/ Epinephrine Bitart (Sensorcaine-Epi 0.25%-1:503604 Mpf) 30 ml STK-MED ONCE .ROUTE Last administered on 06/15/16 12:41; Start 06/15/16 at 10:48 ; Stop 06/15/16 at 10:49; Status DC Cellulose 1 each STK-MED ONCE .ROUTE ; Start 06/15/16 at 10:49; Stop 06/15/16 at 10:50; Status DC Potassium Chloride 20 meq 20 meq 1X ONCE PO Last administered on 06/15/16 11: 21; Start 06/15/16 at 11:15; Stop 06/15/16 at 11:16; Status DC Cefazolin Sodium/ Dextrose (Ancef 2gm Premix) 50 ml @ 100 mls/hr 1X PREOP PRN IV PER PROTOCOL Last administered on 06/15/16 12:56; Start 06/16/16 at 06:00; Stop 06/16/16 at 18:00; Status DC Ephedrine Sulfate 50 mg STK-MED ONCE IV ; Start 06/15/16 at 13:04; Stop 06/15/16 at 13:05; Status DC Glycopyrrolate (Robinul) 1 mg STK-MED ONCE .ROUTE ; Start 06/15/16 at 13:39; Stop 06/15/16 at 13:40; Status DC Neostigmine Methylsulfate 5 mg STK-MED ONCE .ROUTE ; Start 06/15/16 at 13:39; Stop 06/15/16 at 13:40; Status DC Fentanyl Citrate (Fentanyl 2ml Vial) 100 mcg STK-MED ONCE .ROUTE ; Start at 13:55; Stop 06/15/16 at 13:56; Status DC Sevoflurane (Ultane) 30 ml STK-MED ONCE IH ; Start 06/15/16 at 13:55; Stop at 13:56; Status DC Sevoflurane (Ultane) 60 ml STK-MED ONCE IH ; Start 06/15/16 at 13:55; Stop at 13:56; Status DC Warfarin Sodium (Coumadin - No Dose Today) 1 each 1X WARF ONCE MC Last administered on 06/15/16 16:00; Start 06/15/16 at 16:00; Stop 06/15/16 at 16:01; Status DC Cefazolin Sodium/ Dextrose (Ancef 2gm Premix) 2 gm STK-MED ONCE IV ; Start at 13:00; Stop 06/16/16 at 08:05; Status DC Famotidine (Pepcid) 20 mg BID IVP ; Start 06/16/16 at 21:00; Stop 06/16/16 at 21 :00; Status DC Famotidine (Pepcid) 20 mg BID PO Last administered on 06/18/16 08:55; Start at 13:00 Warfarin Sodium (Coumadin) 5 mg 1X WARF ONCE PO Last administered on 18:15; Start 06/17/16 at 16:00; Stop 06/17/16 at 16:01; Status DC Warfarin Sodium (Coumadin) 7.5 mg 1X WARF ONCE PO ; Start 06/18/16 at 16:00; Stop 06/18/16 at 16:01 Active Scripts Active Reported Coumadin (Warfarin Sodium) 5 Mg Tablet 1 Tab PO DAILY Metoprolol Succinate ( Xl ) (Metoprolol Succinate) 25 Mg Tab.er.24h 25 Mg PO DAILY Vitals/I & O Vital Sign - Last 24 Hours 06/17/16 06/17/16 06/17/16 06/17/16 15:00 19:00 20:00 23:00 Temp 97.3 98.2 98.1 97.3 98.2 98.1 Pulse 75 87 84 Resp 18 18 B/P 122/73 118/74 119/75 Pulse Ox 95 95 94 O2 Delivery Room Air Room Air Room Air Room Air 06/18/16 06/18/16 06/18/16 06/18/16 03:00 07:00 07:40 08:55 Temp 97.7 96.4 97.7 96.4 Pulse 83 78 78 Resp 18 16 B/P 102/58 121/64 121/64 Pulse Ox 95 95 O2 Delivery Room Air Room Air Room Air 06/18/16 10:43 Temp 97.1 97.1 Pulse 76 Resp 18 B/P 123/66 Pulse Ox 94 O2 Delivery Room Air Intake and Output 06/17/16 06/17/16 06/18/16 15:00 23:00 07:00 Intake Total 200 ml Output Total 800 ml 850 ml 850 ml Balance -800 ml -850 ml -650 ml CHRIS HARDIN MD Jun 18, 2016 13:14
--- NOTE | 2016-06-18 14:54 | PDOC ---
PROGRESS NOTES Assessment Problems Medical Problems: (1) Subdural hematoma Status: Acute (2) Supratherapeutic INR Status: Acute Bilateral SDH, Status post nela hole Headache Metabolic encephalopathy. Confusion Marfan's syndrome. Left eye vision loss. Plan Keppra if seizures. Warfarin has been resumed BP control. Per neurosurgery's plans Subjective Denies headache Objective Vital Signs Date Time Temp Pulse Resp B/P Pulse Ox O2 Delivery O2 Flow Rate FiO2 06/18/16 10:43 97.1 76 18 123/66 94 Room Air 97.1 Intake and Output 06/18/16 07:00 Intake Total 200 ml Output Total 2500 ml Balance -2300 ml Intake Oral 200 ml Output Urine Total 2500 ml # Voids 1 PHYSICAL EXAM Alerts, does follow commands, knows that he is in the hospital, does not know the date Left cornea is scarred, right pupil reacts EOMI. CN: no focal findings. Muscle tone: normal. Muscle strength: 5-/5 DTR: 2+ Plantar reflex: flexor Gait: not examined in bed. Sensory exam: no abnormal findings. No cerebellar signs Review of Relevant I have reviewed the following items jordy (where applicable) has been applied. Labs Laboratory Tests Test 06/17/16 07:20 06/18/16 04:30 White Blood Count 10.8x10^3/uL (4.0-11.0) 10.7x10^3/uL (4.0-11.0) Red Blood Count 4.28x10^6/uL (4.30-5.70) 4.56x10^6/uL (4.30-5.70) Hemoglobin 12.8g/dL (13.0-17.5) 13.7g/dL (13.0-17.5) Hematocrit 38.5% (39.0-53.0) 40.5% (39.0-53.0) Mean Corpuscular Volume 90fL (79-100) 89fL (79-100) Mean Corpuscular Hemoglobin 30pg (25-35) 30pg (25-35) Mean Corpuscular Hemoglobin Concent 33g/dL (31-37) 34g/dL (31-37) Red Cell Distribution Width 13.3% (11.5-14.5) 13.4% (11.5-14.5) Platelet Count 176x10^3/uL (140-400) 198x10^3/uL (140-400) Neutrophils (%) (Auto) 79% (31-73) 78% (31-73) Lymphocytes (%) (Auto) 8% (24-48) 8% (24-48) Monocytes (%) (Auto) 11% (0-9) 11% (0-9) Eosinophils (%) (Auto) 2% (0-3) 2% (0-3) Basophils (%) (Auto) 1% (0-3) 1% (0-3) Neutrophils # (Auto) 8.5x10^3uL (1.8-7.7) 8.4x10^3uL (1.8-7.7) Lymphocytes # (Auto) 0.9x10^3/uL (1.0-4.8) 0.9x10^3/uL (1.0-4.8) Monocytes # (Auto) 1.2x10^3/uL (0.0-1.1) 1.2x10^3/uL (0.0-1.1) Eosinophils # (Auto) 0.2x10^3/uL (0.0-0.7) 0.2x10^3/uL (0.0-0.7) Basophils # (Auto) 0.1x10^3/uL (0.0-0.2) 0.1x10^3/uL (0.0-0.2) Prothrombin Time 14.3SEC (11.7-14.0) 13.9SEC (11.7-14.0) Prothromb Time International Ratio 1.2 (0.8-1.1) 1.1 (0.8-1.1) Sodium Level 137mmol/L (136-145) 139mmol/L (136-145) Potassium Level 3.8mmol/L (3.5-5.1) 3.7mmol/L (3.5-5.1) Chloride Level 105mmol/L (98-107) 103mmol/L (98-107) Carbon Dioxide Level 27mmol/L (21-32) 26mmol/L (21-32) Anion Gap 5 (6-14) 10 (6-14) Blood Urea Nitrogen 12mg/dL (8-26) 13mg/dL (8-26) Creatinine 0.9mg/dL (0.7-1.3) 0.9mg/dL (0.7-1.3) Estimated GFR (Cockcroft-Gault) 89.3 89.3 Glucose Level 107mg/dL (70-99) 149mg/dL (70-99) Calcium Level 8.5mg/dL (8.5-10.1) 9.0mg/dL (8.5-10.1) Laboratory Tests Test 06/18/16 04:30 White Blood Count 10.7x10^3/uL (4.0-11.0) Red Blood Count 4.56x10^6/uL (4.30-5.70) Hemoglobin 13.7g/dL (13.0-17.5) Hematocrit 40.5% (39.0-53.0) Mean Corpuscular Volume 89fL (79-100) Mean Corpuscular Hemoglobin 30pg (25-35) Mean Corpuscular Hemoglobin Concent 34g/dL (31-37) Red Cell Distribution Width 13.4% (11.5-14.5) Platelet Count 198x10^3/uL (140-400) Neutrophils (%) (Auto) 78% (31-73) Lymphocytes (%) (Auto) 8% (24-48) Monocytes (%) (Auto) 11% (0-9) Eosinophils (%) (Auto) 2% (0-3) Basophils (%) (Auto) 1% (0-3) Neutrophils # (Auto) 8.4x10^3uL (1.8-7.7) Lymphocytes # (Auto) 0.9x10^3/uL (1.0-4.8) Monocytes # (Auto) 1.2x10^3/uL (0.0-1.1) Eosinophils # (Auto) 0.2x10^3/uL (0.0-0.7) Basophils # (Auto) 0.1x10^3/uL (0.0-0.2) Prothrombin Time 13.9SEC (11.7-14.0) Prothromb Time International Ratio 1.1 (0.8-1.1) Sodium Level 139mmol/L (136-145) Potassium Level 3.7mmol/L (3.5-5.1) Chloride Level 103mmol/L (98-107) Carbon Dioxide Level 26mmol/L (21-32) Anion Gap 10 (6-14) Blood Urea Nitrogen 13mg/dL (8-26) Creatinine 0.9mg/dL (0.7-1.3) Estimated GFR (Cockcroft-Gault) 89.3 Glucose Level 149mg/dL (70-99) Calcium Level 9.0mg/dL (8.5-10.1) Microbiology 06/13/16 Urine Culture - Final, Complete 06/13/16 Urine Culture Result 1 (GLENN) - Final, Complete Medications Current Medications Sodium Chloride (Iv Sodium Chloride 0.9% 1000ml Bag) 1,000 ml @ 100 mls/hr 1X ONCE IV Last administered on 06/13/16 13:45; Start 06/13/16 at 13:45; Stop at 23:44; Status DC Phytonadione (Mephyton) 10 mg 1X ONCE PO Last administered on 06/13/16 15:03; Start 06/13/16 at 15:00; Stop 06/13/16 at 15:01; Status DC Ondansetron HCl 4 mg 4 mg PRN Q8HRS PRN IV NAUSEA/VOMITING; Start 06/13/16 at 16 :15; Stop 06/14/16 at 16:14; Status DC Sodium Chloride (Iv Sodium Chloride 0.9% 1000ml Bag) 1,000 ml @ 100 mls/hr Q10H IV Last administered on 06/14/16 05:49; Start 06/13/16 at 16:10; Stop at 13:20; Status DC Morphine Sulfate 2 mg 1X ONCE IV Last administered on 06/13/16 18:08; Start at 18:30; Stop 06/13/16 at 18:31; Status DC Oxycodone/ Acetaminophen (Percocet 5/325) 1 tab PRN Q4HRS PRN PO PAIN Last administered on 06/15/16 23:18; Start 06/13/16 at 18:00 Oxycodone/ Acetaminophen (Percocet 5/325) 2 tab PRN Q4HRS PRN PO PAIN Last administered on 06/17/16 04:50; Start 06/13/16 at 18:00 Metoprolol Succinate (Toprol Xl) 25 mg DAILY PO Last administered on 06/18/16 08:55; Start 06/14/16 at 09:00 Lorazepam 2 mg 2 mg PRN Q4HRS PRN IV ANXIETY / AGITATION; Start 06/13/16 at 19: 45 Levetiracetam 500 mg/Sodium Chloride 105 ml @ 400 mls/hr PRN Q12HRS PRN IV SEIZURES; Start 06/13/16 at 19:45 Potassium Chloride/Sodium Chloride (KCl 20 Meq-0.45% Nacl) 1,000 ml @ 100 mls/ hr Q10H IV Last administered on 06/17/16 03:24; Start 06/14/16 at 13:30; Stop 06/17/16 at 12:24; Status DC Warfarin Sodium (Coumadin Per Pharmacy) 1 each PRN DAILY PRN MC SEE COMMENTS Last administered on 06/18/16 12:30; Start 06/14/16 at 16:00 Warfarin Sodium 2.5 mg 2.5 mg 1X WARF ONCE PO ; Start 06/14/16 at 17:00; Stop at 17:01; Status Cancel Bacitracin/Sodium Chloride (Iv Sodium Chloride 0.9% 1000ml Bag) 1,000 ml @ 1, 000 mls/hr 1X PERIOP ONCE IRR Last administered on 06/15/16 12:41; Start at 10:00; Stop 06/15/16 at 10:59; Status DC Ondansetron HCl (Zofran) 4 mg PRN Q6HRS PRN IV Nausea; Start 06/15/16 at 10:00; Stop 06/16/16 at 09:59; Status DC Fentanyl Citrate (Fentanyl 2ml Vial) 25 mcg PRN Q5MIN PRN IV MILD PAIN; Start 06/15/16 at 10:00; Stop 06/16/16 at 09:59; Status DC Fentanyl Citrate (Fentanyl 2ml Vial) 50 mcg PRN Q5MIN PRN IV MODERATE PAIN; Start 06/15/16 at 10:00; Stop 06/16/16 at 09:59; Status DC Morphine Sulfate 1 mg 1 mg PRN Q10MIN PRN IV SEVERE PAIN; Start 06/15/16 at 10: 00; Stop 06/16/16 at 09:59; Status DC Lactated Ringer's (Iv Lactated Ringers) 1,000 ml @ 30 mls/hr Q24H IV ; Start at 09:47; Stop 06/15/16 at 21:46; Status DC Lidocaine HCl 2 ml 1X PRN PRN ID IV START; Start 06/15/16 at 10:00; Stop at 09:59; Status DC Hydromorphone HCl (Dilaudid) 0.5 mg PRN Q10MIN PRN IV SEV PAIN,Second choice; Start 06/15/16 at 10:00; Stop 06/16/16 at 09:59; Status DC Prochlorperazine Edisylate (Compazine) 5 mg PACU PRN PRN IV NAUSEA; Start at 10:00; Stop 06/16/16 at 09:59; Status DC Phytonadione (Vitamin K) 2 mg 1X ONCE SQ Last administered on 06/15/16t 11:21; Start 06/15/16 at 09:45; Stop 06/15/16 at 09:57; Status DC Dexamethasone Sodium Phosphate (Decadron) 20 mg STK-MED ONCE .ROUTE ; Start 06/15 at 10:26; Stop 06/15/16 at 10:27; Status DC Ondansetron HCl (Zofran) 4 mg STK-MED ONCE .ROUTE ; Start 06/15/16 at 10:26; Stop 06/15/16 at 10:27; Status DC Rocuronium [place] 50 mg 50 mg STK-MED ONCE .ROUTE ; Start 06/15/16 at 10:26; Stop 06/15/16 at 10:27; Status DC Propofol (Diprivan) 20 ml @ As Directed STK-MED ONCE IV ; Start 06/15/16 at 10:26 ; Stop 06/15/16 at 10:27; Status DC Lidocaine HCl 100 mg STK-MED ONCE .ROUTE ; Start 06/15/16 at 10:26; Stop 06/15/16 at 10:27; Status DC Fentanyl Citrate (Fentanyl 2ml Vial) 100 mcg STK-MED ONCE .ROUTE ; Start at 10:26; Stop 06/15/16 at 10:27; Status DC Thrombin 20,000 unit STK-MED ONCE TP Last administered on 06/15/16 12:41; Start 06/15/16 at 10:47; Stop 06/15/16 at 10:48; Status DC Gelatin (Gelfoam Size 100) 1 each STK-MED ONCE .ROUTE Last administered on 06/15 12:41; Start 06/15/16 at 10:48; Stop 06/15/16 at 10:49; Status DC Bupivacaine HCl/ Epinephrine Bitart (Sensorcaine-Epi 0.25%-1:[id number] Mpf) 30 ml STK-MED ONCE .ROUTE Last administered on 06/15/16 12:41; Start 06/15/16 at 10:48 ; Stop 06/15/16 at 10:49; Status DC Cellulose 1 each STK-MED ONCE .ROUTE ; Start 06/15/16 at 10:49; Stop 06/15/16 at 10:50; Status DC Potassium Chloride 20 meq 20 meq 1X ONCE PO Last administered on 06/15/16 11: 21; Start 06/15/16 at 11:15; Stop 06/15/16 at 11:16; Status DC Cefazolin Sodium/ Dextrose (Ancef 2gm Premix) 50 ml @ 100 mls/hr 1X PREOP PRN IV PER PROTOCOL Last administered on 06/15/16 12:56; Start 06/16/16 at 06:00; Stop 06/16/16 at 18:00; Status DC Ephedrine Sulfate 50 mg STK-MED ONCE IV ; Start 06/15/16 at 13:04; Stop 06/15/16 at 13:05; Status DC Glycopyrrolate (Robinul) 1 mg STK-MED ONCE .ROUTE ; Start 06/15/16 at 13:39; Stop 06/15/16 at 13:40; Status DC Neostigmine Methylsulfate 5 mg STK-MED ONCE .ROUTE ; Start 06/15/16 at 13:39; Stop 06/15/16 at 13:40; Status DC Fentanyl Citrate (Fentanyl 2ml Vial) 100 mcg STK-MED ONCE .ROUTE ; Start at 13:55; Stop 06/15/16 at 13:56; Status DC Sevoflurane (Ultane) 30 ml STK-MED ONCE IH ; Start 06/15/16 at 13:55; Stop at 13:56; Status DC Sevoflurane (Ultane) 60 ml STK-MED ONCE IH ; Start 06/15/16 at 13:55; Stop at 13:56; Status DC Warfarin Sodium (Coumadin - No Dose Today) 1 each 1X WARF ONCE MC Last administered on 06/15/16 16:00; Start 06/15/16 at 16:00; Stop 06/15/16 at 16:01; Status DC Cefazolin Sodium/ Dextrose (Ancef 2gm Premix) 2 gm STK-MED ONCE IV ; Start at 13:00; Stop 06/16/16 at 08:05; Status DC Famotidine (Pepcid) 20 mg BID IVP ; Start 06/16/16 at 21:00; Stop 06/16/16 at 21 :00; Status DC Famotidine (Pepcid) 20 mg BID PO Last administered on 06/18/16 08:55; Start at 13:00 Warfarin Sodium (Coumadin) 5 mg 1X WARF ONCE PO Last administered on 18:15; Start 06/17/16 at 16:00; Stop 06/17/16 at 16:01; Status DC Warfarin Sodium (Coumadin) 7.5 mg 1X WARF ONCE PO ; Start 06/18/16 at 16:00; Stop 06/18/16 at 16:01 Active Scripts Active Reported Coumadin (Warfarin Sodium) 5 Mg Tablet 1 Tab PO DAILY Metoprolol Succinate ( Xl ) (Metoprolol Succinate) 25 Mg Tab.er.24h 25 Mg PO DAILY Vitals/I & O Vital Sign - Last 24 Hours 06/17/16 06/17/16 06/17/16 06/17/16 15:00 19:00 20:00 23:00 Temp 97.3 98.2 98.1 97.3 98.2 98.1 Pulse 75 87 84 Resp 18 B/P 122/73 118/74 119/75 Pulse Ox 95 95 94 O2 Delivery Room Air Room Air Room Air Room Air 06/18/16 06/18/16 06/18/16 06/18/16 03:00 07:00 07:40 08:55 Temp 97.7 96.4 97.7 96.4 Pulse 83 78 78 Resp 18 16 B/P 102/58 121/64 121/64 Pulse Ox 95 95 O2 Delivery Room Air Room Air Room Air 06/18/16 10:43 Temp 97.1 97.1 Pulse 76 Resp 18 B/P 123/66 Pulse Ox 94 O2 Delivery Room Air Intake and Output 06/17/16 06/17/16 06/18/16 15:00 23:00 07:00 Intake Total 200 ml Output Total 800 ml 850 ml 850 ml Balance -800 ml -850 ml -[address] today: 1. Interval left frontal calvarial nela hole decompression of an acute or subacute on chronic left cerebral convexity subdural hematoma, with associated slight decrease in hematoma thickness and complete to near complete resolution of prior midline shift. 2. Stable acute to subacute on chronic right cerebral convexity subdural hematoma and small subdural hematomas along the falx and tentorium. EDWARD AMBROSE MD Jun 18, 2016 14:54
[2016-06-18 15:00] VITALS: BP 119/69
[2016-06-18] MEDS ORDERED: WARFARIN 7.5 MG TABLET. PO ONE (16:00)
[2016-06-18 19:00] VITALS: BP 110/72
[2016-06-18 23:40] VITALS: BP 109/69
[2016-06-19] MEDS: ONDANSETRON PF 4 MG/2 ML VIAL. IV PRN (03:08)
[2016-06-19] MEDS: MORPHINE SULFATE 2 MG/ML DISP.SYRIN. IV PRN (03:09)
[2016-06-19 03:13] VITALS: BP 110/75
[2016-06-19 05:10] LABS: BASO # 0.1 x10^3/uL (0.0-0.2); BASO % 1 % (0-3); EOS % 3 % (0-3); HEMATOCRIT 41.7 % (39.0-53.0); HEMOGLOBIN 14.3 g/dL (13.0-17.5); LYMPH # 1.4 x10^3/uL (1.0-4.8); LYMPH % 13 % (24-48); MEAN CORPUSCULAR HEMOGLOBIN 31 pg (25-35); MEAN CORPUSCULAR HGB CONC 34 g/dL (31-37); MEAN CORPUSCULAR VOLUME 90 fL (79-100); MONO % 12 % (0-9); NEUT % 72 % (31-73); PLATELET COUNT 217 x10^3/uL (140-400); RED BLOOD COUNT 4.64 x10^6/uL (4.30-5.70); RED CELL DISTRIBUTION WIDTH 13.5 % (11.5-14.5); WHITE BLOOD COUNT 10.8 x10^3/uL (4.0-11.0)
[2016-06-19 05:33] LABS: CALCIUM 8.9 mg/dL (8.5-10.1); CREATININE 0.8 mg/dL (0.7-1.3); GFR 102.3; POTASSIUM 4.1 mmol/L (3.5-5.1)
[2016-06-19 05:51] LABS: INR 1.2 (0.8-1.1); PROTHROMBIN TIME PATIENT 14.3 SEC (11.7-14.0)
[2016-06-19 07:00] VITALS: BP 104/62
[2016-06-19] MEDS: METOPROLOL SUCC 24HR ER 25 MG TAB.ER.24H. PO SCH (09:00)
[2016-06-19] MEDS: FAMOTIDINE 20 MG TABLET. PO SCH ×2 (09:00→21:00)
--- NOTE | 2016-06-19 09:42 | PDOC ---
PROGRESS NOTES Assessment Problems Medical Problems: (1) Subdural hematoma Status: Acute (2) Supratherapeutic INR Status: Acute Bilateral SDH, Status post nela hole on left Headache Metabolic encephalopathy. Confusion Marfan's syndrome. Left eye vision loss. Plan Keppra if seizures. Warfarin has been resumed BP control. I suspect he'll need the right subdural drained as well He does have hiccups but there is no other evidence of increased intracranial pressure Objective Vital Signs Date Time Temp Pulse Resp B/P Pulse Ox O2 Delivery O2 Flow Rate FiO2 06/19/16 07:40 Room Air 06/19/16 07:00 97.9 91 18 104/62 94 97.9 Intake and Output 06/19/16 07:00 # Voids 4 PHYSICAL EXAM Alerts, does follow commands, knows that he is in the hospital, does not know the date He is having hiccups Left cornea is scarred, right pupil reacts EOMI. CN: no focal findings. Limited right eye fundus exam negative Muscle tone: normal. Muscle strength: 5-/5 DTR: 2+ Plantar reflex: flexor Gait: not examined in bed. Sensory exam: no abnormal findings. No cerebellar signs Review of Relevant I have reviewed the following items jordy (where applicable) has been applied. Labs Laboratory Tests Test 06/18/16 04:30 06/19/16 03:37 White Blood Count 10.7x10^3/uL (4.0-11.0) 10.8x10^3/uL (4.0-11.0) Red Blood Count 4.56x10^6/uL (4.30-5.70) 4.64x10^6/uL (4.30-5.70) Hemoglobin 13.7g/dL (13.0-17.5) 14.3g/dL (13.0-17.5) Hematocrit 40.5% (39.0-53.0) 41.7% (39.0-53.0) Mean Corpuscular Volume 89fL (79-100) 90fL (79-100) Mean Corpuscular Hemoglobin 30pg (25-35) 31pg (25-35) Mean Corpuscular Hemoglobin Concent 34g/dL (31-37) 34g/dL (31-37) Red Cell Distribution Width 13.4% (11.5-14.5) 13.5% (11.5-14.5) Platelet Count 198x10^3/uL (140-400) 217x10^3/uL (140-400) Neutrophils (%) (Auto) 78% (31-73) 72% (31-73) Lymphocytes (%) (Auto) 8% (24-48) 13% (24-48) Monocytes (%) (Auto) 11% (0-9) 12% (0-9) Eosinophils (%) (Auto) 2% (0-3) 3% (0-3) Basophils (%) (Auto) 1% (0-3) 1% (0-3) Neutrophils # (Auto) 8.4x10^3uL (1.8-7.7) 7.8x10^3uL (1.8-7.7) Lymphocytes # (Auto) 0.9x10^3/uL (1.0-4.8) 1.4x10^3/uL (1.0-4.8) Monocytes # (Auto) 1.2x10^3/uL (0.0-1.1) 1.3x10^3/uL (0.0-1.1) Eosinophils # (Auto) 0.2x10^3/uL (0.0-0.7) 0.3x10^3/uL (0.0-0.7) Basophils # (Auto) 0.1x10^3/uL (0.0-0.2) 0.1x10^3/uL (0.0-0.2) Prothrombin Time 13.9SEC (11.7-14.0) 14.3SEC (11.7-14.0) Prothromb Time International Ratio 1.1 (0.8-1.1) 1.2 (0.8-1.1) Sodium Level 139mmol/L (136-145) 142mmol/L (136-145) Potassium Level 3.7mmol/L (3.5-5.1) 4.1mmol/L (3.5-5.1) Chloride Level 103mmol/L (98-107) 104mmol/L (98-107) Carbon Dioxide Level 26mmol/L (21-32) 26mmol/L (21-32) Anion Gap 10 (6-14) 12 (6-14) Blood Urea Nitrogen 13mg/dL (8-26) 15mg/dL (8-26) Creatinine 0.9mg/dL (0.7-1.3) 0.8mg/dL (0.7-1.3) Estimated GFR (Cockcroft-Gault) 89.3 102.3 Glucose Level 149mg/dL (70-99) 92mg/dL (70-99) Calcium Level 9.0mg/dL (8.5-10.1) 8.9mg/dL (8.5-10.1) Laboratory Tests Test 06/19/16 03:37 White Blood Count 10.8x10^3/uL (4.0-11.0) Red Blood Count 4.64x10^6/uL (4.30-5.70) Hemoglobin 14.3g/dL (13.0-17.5) Hematocrit 41.7% (39.0-53.0) Mean Corpuscular Volume 90fL (79-100) Mean Corpuscular Hemoglobin 31pg (25-35) Mean Corpuscular Hemoglobin Concent 34g/dL (31-37) Red Cell Distribution Width 13.5% (11.5-14.5) Platelet Count 217x10^3/uL (140-400) Neutrophils (%) (Auto) 72% (31-73) Lymphocytes (%) (Auto) 13% (24-48) Monocytes (%) (Auto) 12% (0-9) Eosinophils (%) (Auto) 3% (0-3) Basophils (%) (Auto) 1% (0-3) Neutrophils # (Auto) 7.8x10^3uL (1.8-7.7) Lymphocytes # (Auto) 1.4x10^3/uL (1.0-4.8) Monocytes # (Auto) 1.3x10^3/uL (0.0-1.1) Eosinophils # (Auto) 0.3x10^3/uL (0.0-0.7) Basophils # (Auto) 0.1x10^3/uL (0.0-0.2) Prothrombin Time 14.3SEC (11.7-14.0) Prothromb Time International Ratio 1.2 (0.8-1.1) Sodium Level 142mmol/L (136-145) Potassium Level 4.1mmol/L (3.5-5.1) Chloride Level 104mmol/L (98-107) Carbon Dioxide Level 26mmol/L (21-32) Anion Gap 12 (6-14) Blood Urea Nitrogen 15mg/dL (8-26) Creatinine 0.8mg/dL (0.7-1.3) Estimated GFR (Cockcroft-Gault) 102.3 Glucose Level 92mg/dL (70-99) Calcium Level 8.9mg/dL (8.5-10.1) Microbiology 06/13/16 Urine Culture - Final, Complete 06/13/16 Urine Culture Result 1 (GLENN) - Final, Complete Medications Current Medications Sodium Chloride (Iv Sodium Chloride 0.9% 1000ml Bag) 1,000 ml @ 100 mls/hr 1X ONCE IV Last administered on 06/13/16 13:45; Start 06/13/16 at 13:45; Stop at 23:44; Status DC Phytonadione (Mephyton) 10 mg 1X ONCE PO Last administered on 06/13/16 15:03; Start 06/13/16 at 15:00; Stop 06/13/16 at 15:01; Status DC Ondansetron HCl 4 mg 4 mg PRN Q8HRS PRN IV NAUSEA/VOMITING; Start 06/13/16 at 16 :15; Stop 06/14/16 at 16:14; Status DC Sodium Chloride (Iv Sodium Chloride 0.9% 1000ml Bag) 1,000 ml @ 100 mls/hr Q10H IV Last administered on 06/14/16 05:49; Start 06/13/16 at 16:10; Stop at 13:20; Status DC Morphine Sulfate 2 mg 1X ONCE IV Last administered on 06/13/16 18:08; Start at 18:30; Stop 06/13/16 at 18:31; Status DC Oxycodone/ Acetaminophen (Percocet 5/325) 1 tab PRN Q4HRS PRN PO PAIN Last administered on 06/15/16 23:18; Start 06/13/16 at 18:00 Oxycodone/ Acetaminophen (Percocet 5/325) 2 tab PRN Q4HRS PRN PO PAIN Last administered on 06/17/16 04:50; Start 06/13/16 at 18:00 Metoprolol Succinate (Toprol Xl) 25 mg DAILY PO Last administered on 06/18/16 08:55; Start 06/14/16 at 09:00 Lorazepam 2 mg 2 mg PRN Q4HRS PRN IV ANXIETY / AGITATION; Start 06/13/16 at 19: 45 Levetiracetam 500 mg/Sodium Chloride 105 ml @ 400 mls/hr PRN Q12HRS PRN IV SEIZURES; Start 06/13/16 at 19:45 Potassium Chloride/Sodium Chloride (KCl 20 Meq-0.45% Nacl) 1,000 ml @ 100 mls/ hr Q10H IV Last administered on 06/17/16 03:24; Start 06/14/16 at 13:30; Stop 06/17/16 at 12:24; Status DC Warfarin Sodium (Coumadin Per Pharmacy) 1 each PRN DAILY PRN MC SEE COMMENTS Last administered on 06/18/16 12:30; Start 06/14/16 at 16:00 Warfarin Sodium 2.5 mg 2.5 mg 1X WARF ONCE PO ; Start 06/14/16 at 17:00; Stop at 17:01; Status Cancel Bacitracin/Sodium Chloride (Iv Sodium Chloride 0.9% 1000ml Bag) 1,000 ml @ 1, 000 mls/hr 1X PERIOP ONCE IRR Last administered on 06/15/16 12:41; Start at 10:00; Stop 06/15/16 at 10:59; Status DC Ondansetron HCl (Zofran) 4 mg PRN Q6HRS PRN IV Nausea; Start 06/15/16 at 10:00; Stop 06/16/16 at 09:59; Status DC Fentanyl Citrate (Fentanyl 2ml Vial) 25 mcg PRN Q5MIN PRN IV MILD PAIN; Start 06/15/16 at 10:00; Stop 06/16/16 at 09:59; Status DC Fentanyl Citrate (Fentanyl 2ml Vial) 50 mcg PRN Q5MIN PRN IV MODERATE PAIN; Start 06/15/16 at 10:00; Stop 06/16/16 at 09:59; Status DC Morphine Sulfate 1 mg 1 mg PRN Q10MIN PRN IV SEVERE PAIN; Start 06/15/16 at 10: 00; Stop 06/16/16 at 09:59; Status DC Lactated Ringer's (Iv Lactated Ringers) 1,000 ml @ 30 mls/hr Q24H IV ; Start at 09:47; Stop 06/15/16 at 21:46; Status DC Lidocaine HCl 2 ml 1X PRN PRN ID IV START; Start 06/15/16 at 10:00; Stop at 09:59; Status DC Hydromorphone HCl (Dilaudid) 0.5 mg PRN Q10MIN PRN IV SEV PAIN,Second choice; Start 06/15/16 at 10:00; Stop 06/16/16 at 09:59; Status DC Prochlorperazine Edisylate (Compazine) 5 mg PACU PRN PRN IV NAUSEA; Start at 10:00; Stop 06/16/16 at 09:59; Status DC Phytonadione (Vitamin K) 2 mg 1X ONCE SQ Last administered on 06/15/16t 11:21; Start 06/15/16 at 09:45; Stop 06/15/16 at 09:57; Status DC Dexamethasone Sodium Phosphate (Decadron) 20 mg STK-MED ONCE .ROUTE ; Start 06/15 at 10:26; Stop 06/15/16 at 10:27; Status DC Ondansetron HCl (Zofran) 4 mg STK-MED ONCE .ROUTE ; Start 06/15/16 at 10:26; Stop 06/15/16 at 10:27; Status DC Rocuronium [place] 50 mg 50 mg STK-MED ONCE .ROUTE ; Start 06/15/16 at 10:26; Stop 06/15/16 at 10:27; Status DC Propofol (Diprivan) 20 ml @ As Directed STK-MED ONCE IV ; Start 06/15/16 at 10:26 ; Stop 06/15/16 at 10:27; Status DC Lidocaine HCl 100 mg STK-MED ONCE .ROUTE ; Start 06/15/16 at 10:26; Stop 06/15/16 at 10:27; Status DC Fentanyl Citrate (Fentanyl 2ml Vial) 100 mcg STK-MED ONCE .ROUTE ; Start at 10:26; Stop 06/15/16 at 10:27; Status DC Thrombin 20,000 unit STK-MED ONCE TP Last administered on 06/15/16 12:41; Start 06/15/16 at 10:47; Stop 06/15/16 at 10:48; Status DC Gelatin (Gelfoam Size 100) 1 each STK-MED ONCE .ROUTE Last administered on 06/15 12:41; Start 06/15/16 at 10:48; Stop 06/15/16 at 10:49; Status DC Bupivacaine HCl/ Epinephrine Bitart (Sensorcaine-Epi 0.25%-1:[id number] Mpf) 30 ml STK-MED ONCE .ROUTE Last administered on 06/15/16 12:41; Start 06/15/16 at 10:48 ; Stop 06/15/16 at 10:49; Status DC Cellulose 1 each STK-MED ONCE .ROUTE ; Start 06/15/16 at 10:49; Stop 06/15/16 at 10:50; Status DC Potassium Chloride 20 meq 20 meq 1X ONCE PO Last administered on 06/15/16 11: 21; Start 06/15/16 at 11:15; Stop 06/15/16 at 11:16; Status DC Cefazolin Sodium/ Dextrose (Ancef 2gm Premix) 50 ml @ 100 mls/hr 1X PREOP PRN IV PER PROTOCOL Last administered on 06/15/16 12:56; Start 06/16/16 at 06:00; Stop 06/16/16 at 18:00; Status DC Ephedrine Sulfate 50 mg STK-MED ONCE IV ; Start 06/15/16 at 13:04; Stop 06/15/16 at 13:05; Status DC Glycopyrrolate (Robinul) 1 mg STK-MED ONCE .ROUTE ; Start 06/15/16 at 13:39; Stop 06/15/16 at 13:40; Status DC Neostigmine Methylsulfate 5 mg STK-MED ONCE .ROUTE ; Start 06/15/16 at 13:39; Stop 06/15/16 at 13:40; Status DC Fentanyl Citrate (Fentanyl 2ml Vial) 100 mcg STK-MED ONCE .ROUTE ; Start at 13:55; Stop 06/15/16 at 13:56; Status DC Sevoflurane (Ultane) 30 ml STK-MED ONCE IH ; Start 06/15/16 at 13:55; Stop at 13:56; Status DC Sevoflurane (Ultane) 60 ml STK-MED ONCE IH ; Start 06/15/16 at 13:55; Stop at 13:56; Status DC Warfarin Sodium (Coumadin - No Dose Today) 1 each 1X WARF ONCE MC Last administered on 06/15/16 16:00; Start 06/15/16 at 16:00; Stop 06/15/16 at 16:01; Status DC Cefazolin Sodium/ Dextrose (Ancef 2gm Premix) 2 gm STK-MED ONCE IV ; Start at 13:00; Stop 06/16/16 at 08:05; Status DC Famotidine (Pepcid) 20 mg BID IVP ; Start 06/16/16 at 21:00; Stop 06/16/16 at 21 :00; Status DC Famotidine (Pepcid) 20 mg BID PO Last administered on 06/18/16 22:48; Start at 13:00 Warfarin Sodium (Coumadin) 5 mg 1X WARF ONCE PO Last administered on 18:15; Start 06/17/16 at 16:00; Stop 06/17/16 at 16:01; Status DC Warfarin Sodium (Coumadin) 7.5 mg 1X WARF ONCE PO Last administered on 16:25; Start 06/18/16 at 16:00; Stop 06/18/16 at 16:01; Status DC Ondansetron HCl (Zofran) 4 mg PRN Q6HRS PRN IV NAUSEA/VOMITING Last administered on 06/19/16 03:08; Start 06/19/16 at 03:00 Morphine Sulfate 2 mg PRN Q2HR PRN IV PAIN Last administered on 06/19/16 03:09 ; Start 06/19/16 at 03:00 Active Scripts Active Reported Coumadin (Warfarin Sodium) 5 Mg Tablet 1 Tab PO DAILY Metoprolol Succinate ( Xl ) (Metoprolol Succinate) 25 Mg Tab.er.24h 25 Mg PO DAILY Vitals/I & O Vital Sign - Last 24 Hours 06/18/16 06/18/16 06/18/16 06/18/16 10:43 15:00 19:00 20:00 Temp 97.1 96.9 99.3 97.1 96.9 99.3 Pulse 76 79 86 Resp 18 18 18 B/P 123/66 119/69 110/72 Pulse Ox 94 96 95 O2 Delivery Room Air Room Air Room Air Room Air 06/18/16 06/19/16 06/19/16 06/19/16 23:40 03:09 03:13 03:35 Temp 97.9 98.1 97.9 98.1 Pulse 86 84 Resp 18 16 18 16 B/P 109/69 110/75 Pulse Ox 95 93 O2 Delivery Room Air Room Air Room Air Room Air 06/19/16 06/19/16 07:00 07:40 Temp 97.9 97.9 Pulse 91 Resp 18 B/P 104/62 Pulse Ox 94 O2 Delivery Room Air Room Air EDWARD AMBROSE MD Jun 19, 2016 09:41
--- NOTE | 2016-06-19 10:53 | PDOC ---
PROGRESS NOTES Chief Complaint Chief Complaint cc: headaches - Bilateral subdural hematoma - Headaches better - Marfan's syndrome with hx of valve replacements and eye surgeries - Left eye blindness - HTN stable, -Hypokalemia History of Present Illness History of Present Illness Asleep NO reports of headaches Warfarin has been resumed Neuro note reviewed PT has not participated with PT yet CT scan 06/18 - stable size, no inc in size Vitals Vitals Vital Signs Date Time Temp Pulse Resp B/P Pulse Ox O2 Delivery O2 Flow Rate FiO2 06/19/16 07:40 Room Air 06/19/16 07:00 97.9 91 18 104/62 94 97.9 Physical Exam General: Alert, Oriented X3, Cooperative, No acute distress, Other Heart: Regular rate, Normal S1 Lungs: Clear, Other Abdomen: Normal bowel sounds Extremities: No clubbing, No cyanosis, No edema Skin: Other (dressing dry and intact) Labs LABS Laboratory Tests Test 06/19/16 03:37 White Blood Count 10.8x10^3/uL (4.0-11.0) Red Blood Count 4.64x10^6/uL (4.30-5.70) Hemoglobin 14.3g/dL (13.0-17.5) Hematocrit 41.7% (39.0-53.0) Mean Corpuscular Volume 90fL (79-100) Mean Corpuscular Hemoglobin 31pg (25-35) Mean Corpuscular Hemoglobin Concent 34g/dL (31-37) Red Cell Distribution Width 13.5% (11.5-14.5) Platelet Count 217x10^3/uL (140-400) Neutrophils (%) (Auto) 72% (31-73) Lymphocytes (%) (Auto) 13% (24-48) Monocytes (%) (Auto) 12% (0-9) Eosinophils (%) (Auto) 3% (0-3) Basophils (%) (Auto) 1% (0-3) Neutrophils # (Auto) 7.8x10^3uL (1.8-7.7) Lymphocytes # (Auto) 1.4x10^3/uL (1.0-4.8) Monocytes # (Auto) 1.3x10^3/uL (0.0-1.1) Eosinophils # (Auto) 0.3x10^3/uL (0.0-0.7) Basophils # (Auto) 0.1x10^3/uL (0.0-0.2) Prothrombin Time 14.3SEC (11.7-14.0) Prothromb Time International Ratio 1.2 (0.8-1.1) Sodium Level 142mmol/L (136-145) Potassium Level 4.1mmol/L (3.5-5.1) Chloride Level 104mmol/L (98-107) Carbon Dioxide Level 26mmol/L (21-32) Anion Gap 12 (6-14) Blood Urea Nitrogen 15mg/dL (8-26) Creatinine 0.8mg/dL (0.7-1.3) Estimated GFR (Cockcroft-Gault) 102.3 Glucose Level 92mg/dL (70-99) Calcium Level 8.9mg/dL (8.5-10.1) Review of Systems Review of Systems not obtained Assessment and Plan Assessmemt and Plan Await working with pT Monitor for inc bleeding farooq warfarin has been resumed Await neuro sx - thoughts of R drainage as well? [facility] planning Problems Medical Problems: (1) Subdural hematoma Status: Acute (2) Supratherapeutic INR Status: Acute Problems: Comment Review of Relevant I have reviewed the following items jordy (where applicable) has been applied. Labs Laboratory Tests Test 06/18/16 04:30 06/19/16 03:37 White Blood Count 10.7x10^3/uL (4.0-11.0) 10.8x10^3/uL (4.0-11.0) Red Blood Count 4.56x10^6/uL (4.30-5.70) 4.64x10^6/uL (4.30-5.70) Hemoglobin 13.7g/dL (13.0-17.5) 14.3g/dL (13.0-17.5) Hematocrit 40.5% (39.0-53.0) 41.7% (39.0-53.0) Mean Corpuscular Volume 89fL (79-100) 90fL (79-100) Mean Corpuscular Hemoglobin 30pg (25-35) 31pg (25-35) Mean Corpuscular Hemoglobin Concent 34g/dL (31-37) 34g/dL (31-37) Red Cell Distribution Width 13.4% (11.5-14.5) 13.5% (11.5-14.5) Platelet Count 198x10^3/uL (140-400) 217x10^3/uL (140-400) Neutrophils (%) (Auto) 78% (31-73) 72% (31-73) Lymphocytes (%) (Auto) 8% (24-48) 13% (24-48) Monocytes (%) (Auto) 11% (0-9) 12% (0-9) Eosinophils (%) (Auto) 2% (0-3) 3% (0-3) Basophils (%) (Auto) 1% (0-3) 1% (0-3) Neutrophils # (Auto) 8.4x10^3uL (1.8-7.7) 7.8x10^3uL (1.8-7.7) Lymphocytes # (Auto) 0.9x10^3/uL (1.0-4.8) 1.4x10^3/uL (1.0-4.8) Monocytes # (Auto) 1.2x10^3/uL (0.0-1.1) 1.3x10^3/uL (0.0-1.1) Eosinophils # (Auto) 0.2x10^3/uL (0.0-0.7) 0.3x10^3/uL (0.0-0.7) Basophils # (Auto) 0.1x10^3/uL (0.0-0.2) 0.1x10^3/uL (0.0-0.2) Prothrombin Time 13.9SEC (11.7-14.0) 14.3SEC (11.7-14.0) Prothromb Time International Ratio 1.1 (0.8-1.1) 1.2 (0.8-1.1) Sodium Level 139mmol/L (136-145) 142mmol/L (136-145) Potassium Level 3.7mmol/L (3.5-5.1) 4.1mmol/L (3.5-5.1) Chloride Level 103mmol/L (98-107) 104mmol/L (98-107) Carbon Dioxide Level 26mmol/L (21-32) 26mmol/L (21-32) Anion Gap 10 (6-14) 12 (6-14) Blood Urea Nitrogen 13mg/dL (8-26) 15mg/dL (8-26) Creatinine 0.9mg/dL (0.7-1.3) 0.8mg/dL (0.7-1.3) Estimated GFR (Cockcroft-Gault) 89.3 102.3 Glucose Level 149mg/dL (70-99) 92mg/dL (70-99) Calcium Level 9.0mg/dL (8.5-10.1) 8.9mg/dL (8.5-10.1) Laboratory Tests Test 06/19/16 03:37 White Blood Count 10.8x10^3/uL (4.0-11.0) Red Blood Count 4.64x10^6/uL (4.30-5.70) Hemoglobin 14.3g/dL (13.0-17.5) Hematocrit 41.7% (39.0-53.0) Mean Corpuscular Volume 90fL (79-100) Mean Corpuscular Hemoglobin 31pg (25-35) Mean Corpuscular Hemoglobin Concent 34g/dL (31-37) Red Cell Distribution Width 13.5% (11.5-14.5) Platelet Count 217x10^3/uL (140-400) Neutrophils (%) (Auto) 72% (31-73) Lymphocytes (%) (Auto) 13% (24-48) Monocytes (%) (Auto) 12% (0-9) Eosinophils (%) (Auto) 3% (0-3) Basophils (%) (Auto) 1% (0-3) Neutrophils # (Auto) 7.8x10^3uL (1.8-7.7) Lymphocytes # (Auto) 1.4x10^3/uL (1.0-4.8) Monocytes # (Auto) 1.3x10^3/uL (0.0-1.1) Eosinophils # (Auto) 0.3x10^3/uL (0.0-0.7) Basophils # (Auto) 0.1x10^3/uL (0.0-0.2) Prothrombin Time 14.3SEC (11.7-14.0) Prothromb Time International Ratio 1.2 (0.8-1.1) Sodium Level 142mmol/L (136-145) Potassium Level 4.1mmol/L (3.5-5.1) Chloride Level 104mmol/L (98-107) Carbon Dioxide Level 26mmol/L (21-32) Anion Gap 12 (6-14) Blood Urea Nitrogen 15mg/dL (8-26) Creatinine 0.8mg/dL (0.7-1.3) Estimated GFR (Cockcroft-Gault) 102.3 Glucose Level 92mg/dL (70-99) Calcium Level 8.9mg/dL (8.5-10.1) Microbiology 06/13/16 Urine Culture - Final, Complete 06/13/16 Urine Culture Result 1 (GLENN) - Final, Complete Medications Current Medications Sodium Chloride (Iv Sodium Chloride 0.9% 1000ml Bag) 1,000 ml @ 100 mls/hr 1X ONCE IV Last administered on 06/13/16 13:45; Start 06/13/16 at 13:45; Stop at 23:44; Status DC Phytonadione (Mephyton) 10 mg 1X ONCE PO Last administered on 06/13/16 15:03; Start 06/13/16 at 15:00; Stop 06/13/16 at 15:01; Status DC Ondansetron HCl 4 mg 4 mg PRN Q8HRS PRN IV NAUSEA/VOMITING; Start 06/13/16 at 16 :15; Stop 06/14/16 at 16:14; Status DC Sodium Chloride (Iv Sodium Chloride 0.9% 1000ml Bag) 1,000 ml @ 100 mls/hr Q10H IV Last administered on 06/14/16 05:49; Start 06/13/16 at 16:10; Stop at 13:20; Status DC Morphine Sulfate 2 mg 1X ONCE IV Last administered on 06/13/16 18:08; Start at 18:30; Stop 06/13/16 at 18:31; Status DC Oxycodone/ Acetaminophen (Percocet 5/325) 1 tab PRN Q4HRS PRN PO PAIN Last administered on 06/15/16 23:18; Start 06/13/16 at 18:00 Oxycodone/ Acetaminophen (Percocet 5/325) 2 tab PRN Q4HRS PRN PO PAIN Last administered on 06/17/16 04:50; Start 06/13/16 at 18:00 Metoprolol Succinate (Toprol Xl) 25 mg DAILY PO Last administered on 06/18/16 08:55; Start 06/14/16 at 09:00 Lorazepam 2 mg 2 mg PRN Q4HRS PRN IV ANXIETY / AGITATION; Start 06/13/16 at 19: 45 Levetiracetam 500 mg/Sodium Chloride 105 ml @ 400 mls/hr PRN Q12HRS PRN IV SEIZURES; Start 06/13/16 at 19:45 Potassium Chloride/Sodium Chloride (KCl 20 Meq-0.45% Nacl) 1,000 ml @ 100 mls/ hr Q10H IV Last administered on 06/17/16 03:24; Start 06/14/16 at 13:30; Stop 06/17/16 at 12:24; Status DC Warfarin Sodium (Coumadin Per Pharmacy) 1 each PRN DAILY PRN MC SEE COMMENTS Last administered on 06/18/16 12:30; Start 06/14/16 at 16:00 Warfarin Sodium 2.5 mg 2.5 mg 1X WARF ONCE PO ; Start 06/14/16 at 17:00; Stop at 17:01; Status Cancel Bacitracin/Sodium Chloride (Iv Sodium Chloride 0.9% 1000ml Bag) 1,000 ml @ 1, 000 mls/hr 1X PERIOP ONCE IRR Last administered on 06/15/16 12:41; Start at 10:00; Stop 06/15/16 at 10:59; Status DC Ondansetron HCl (Zofran) 4 mg PRN Q6HRS PRN IV Nausea; Start 06/15/16 at 10:00; Stop 06/16/16 at 09:59; Status DC Fentanyl Citrate (Fentanyl 2ml Vial) 25 mcg PRN Q5MIN PRN IV MILD PAIN; Start 06/15/16 at 10:00; Stop 06/16/16 at 09:59; Status DC Fentanyl Citrate (Fentanyl 2ml Vial) 50 mcg PRN Q5MIN PRN IV MODERATE PAIN; Start 06/15/16 at 10:00; Stop 06/16/16 at 09:59; Status DC Morphine Sulfate 1 mg 1 mg PRN Q10MIN PRN IV SEVERE PAIN; Start 06/15/16 at 10: 00; Stop 06/16/16 at 09:59; Status DC Lactated Ringer's (Iv Lactated Ringers) 1,000 ml @ 30 mls/hr Q24H IV ; Start at 09:47; Stop 06/15/16 at 21:46; Status DC Lidocaine HCl 2 ml 1X PRN PRN ID IV START; Start 06/15/16 at 10:00; Stop at 09:59; Status DC Hydromorphone HCl (Dilaudid) 0.5 mg PRN Q10MIN PRN IV SEV PAIN,Second choice; Start 06/15/16 at 10:00; Stop 06/16/16 at 09:59; Status DC Prochlorperazine Edisylate (Compazine) 5 mg PACU PRN PRN IV NAUSEA; Start at 10:00; Stop 06/16/16 at 09:59; Status DC Phytonadione (Vitamin K) 2 mg 1X ONCE SQ Last administered on 06/15/16t 11:21; Start 06/15/16 at 09:45; Stop 06/15/16 at 09:57; Status DC Dexamethasone Sodium Phosphate (Decadron) 20 mg STK-MED ONCE .ROUTE ; Start 06/15 at 10:26; Stop 06/15/16 at 10:27; Status DC Ondansetron HCl (Zofran) 4 mg STK-MED ONCE .ROUTE ; Start 06/15/16 at 10:26; Stop 06/15/16 at 10:27; Status DC Rocuronium [place] 50 mg 50 mg STK-MED ONCE .ROUTE ; Start 06/15/16 at 10:26; Stop 06/15/16 at 10:27; Status DC Propofol (Diprivan) 20 ml @ As Directed STK-MED ONCE IV ; Start 06/15/16 at 10:26 ; Stop 06/15/16 at 10:27; Status DC Lidocaine HCl 100 mg STK-MED ONCE .ROUTE ; Start 06/15/16 at 10:26; Stop 06/15/16 at 10:27; Status DC Fentanyl Citrate (Fentanyl 2ml Vial) 100 mcg STK-MED ONCE .ROUTE ; Start at 10:26; Stop 06/15/16 at 10:27; Status DC Thrombin 20,000 unit STK-MED ONCE TP Last administered on 06/15/16 12:41; Start 06/15/16 at 10:47; Stop 06/15/16 at 10:48; Status DC Gelatin (Gelfoam Size 100) 1 each STK-MED ONCE .ROUTE Last administered on 06/15 12:41; Start 06/15/16 at 10:48; Stop 06/15/16 at 10:49; Status DC Bupivacaine HCl/ Epinephrine Bitart (Sensorcaine-Epi 0.25%-1:011480 Mpf) 30 ml STK-MED ONCE .ROUTE Last administered on 06/15/16 12:41; Start 06/15/16 at 10:48 ; Stop 06/15/16 at 10:49; Status DC Cellulose 1 each STK-MED ONCE .ROUTE ; Start 06/15/16 at 10:49; Stop 06/15/16 at 10:50; Status DC Potassium Chloride 20 meq 20 meq 1X ONCE PO Last administered on 06/15/16 11: 21; Start 06/15/16 at 11:15; Stop 06/15/16 at 11:16; Status DC Cefazolin Sodium/ Dextrose (Ancef 2gm Premix) 50 ml @ 100 mls/hr 1X PREOP PRN IV PER PROTOCOL Last administered on 06/15/16 12:56; Start 06/16/16 at 06:00; Stop 06/16/16 at 18:00; Status DC Ephedrine Sulfate 50 mg STK-MED ONCE IV ; Start 06/15/16 at 13:04; Stop 06/15/16 at 13:05; Status DC Glycopyrrolate (Robinul) 1 mg STK-MED ONCE .ROUTE ; Start 06/15/16 at 13:39; Stop 06/15/16 at 13:40; Status DC Neostigmine Methylsulfate 5 mg STK-MED ONCE .ROUTE ; Start 06/15/16 at 13:39; Stop 06/15/16 at 13:40; Status DC Fentanyl Citrate (Fentanyl 2ml Vial) 100 mcg STK-MED ONCE .ROUTE ; Start at 13:55; Stop 06/15/16 at 13:56; Status DC Sevoflurane (Ultane) 30 ml STK-MED ONCE IH ; Start 06/15/16 at 13:55; Stop at 13:56; Status DC Sevoflurane (Ultane) 60 ml STK-MED ONCE IH ; Start 06/15/16 at 13:55; Stop at 13:56; Status DC Warfarin Sodium (Coumadin - No Dose Today) 1 each 1X WARF ONCE MC Last administered on 06/15/16 16:00; Start 06/15/16 at 16:00; Stop 06/15/16 at 16:01; Status DC Cefazolin Sodium/ Dextrose (Ancef 2gm Premix) 2 gm STK-MED ONCE IV ; Start at 13:00; Stop 06/16/16 at 08:05; Status DC Famotidine (Pepcid) 20 mg BID IVP ; Start 06/16/16 at 21:00; Stop 06/16/16 at 21 :00; Status DC Famotidine (Pepcid) 20 mg BID PO Last administered on 06/18/16 22:48; Start at 13:00 Warfarin Sodium (Coumadin) 5 mg 1X WARF ONCE PO Last administered on 18:15; Start 06/17/16 at 16:00; Stop 06/17/16 at 16:01; Status DC Warfarin Sodium (Coumadin) 7.5 mg 1X WARF ONCE PO Last administered on 16:25; Start 06/18/16 at 16:00; Stop 06/18/16 at 16:01; Status DC Ondansetron HCl (Zofran) 4 mg PRN Q6HRS PRN IV NAUSEA/VOMITING Last administered on 06/19/16 03:08; Start 06/19/16 at 03:00 Morphine Sulfate 2 mg PRN Q2HR PRN IV PAIN Last administered on 06/19/16 03:09 ; Start 06/19/16 at 03:00 Active Scripts Active Reported Coumadin (Warfarin Sodium) 5 Mg Tablet 1 Tab PO DAILY Metoprolol Succinate ( Xl ) (Metoprolol Succinate) 25 Mg Tab.er.24h 25 Mg PO DAILY Vitals/I & O Vital Sign - Last 24 Hours 06/18/16 06/18/16 06/18/16 06/18/16 15:00 19:00 20:00 23:40 Temp 96.9 99.3 97.9 96.9 99.3 97.9 Pulse 79 86 86 Resp B/P 119/69 110/72 109/69 Pulse Ox 96 95 95 O2 Delivery Room Air Room Air Room Air Room Air 06/19/16 06/19/16 06/19/16 06/19/16 03:09 03:13 03:35 07:00 Temp 98.1 97.9 98.1 97.9 Pulse 84 91 Resp B/P 110/75 104/62 Pulse Ox 93 94 O2 Delivery Room Air Room Air Room Air Room Air 06/19/16 07:40 O2 Delivery Room Air DANILO PIZANO MD Jun 19, 2016 10:53
[2016-06-19 11:00] VITALS: BP 85/59
[2016-06-19 15:00] VITALS: BP 95/56
--- NOTE | 2016-06-19 15:42 | RAD ---
CT head without contrast History: Declining condition since previous CT. Comparison: CT head yesterday. Procedure: Axial images are obtained of the head from the skull base through the vertex without IV contrast. One or more of the following individualized dose reduction techniques were utilized for the study: Automated exposure control Adjustment of mA and/or kV according to patient's size Use of iterative reconstruction technique. Findings: Postoperative changes of the left frontal nela hole are again seen. There is interval reduction in pneumocephalus. Bilateral acute on chronic subdural hemorrhages appear fairly similar in amount to previous study. No convincing new intracranial hemorrhage is seen. Third and fourth ventricles appear small, but similar to previous study. Suprasellar and quadrigeminal plate cisterns are almost completely effaced, but similar to previous study. No significant midline shift is seen. No acute ischemic infarction is seen. No intracranial mass is identified. Impression: No significant interval change.
[2016-06-19] MEDS ORDERED: WARFARIN 7.5 MG TABLET. PO ONE (16:00)
[2016-06-19] MEDS: AA 3%/ELECTROLYTE-TPN SOLN/GLY 1,000 ML IV SCH (16:40)
[2016-06-19 19:57] VITALS: BP 110/66
--- NOTE | 2016-06-19 22:01 | PDOC ---
PROGRESS NOTES Subjective Subjective Patient seen at 1320\ sitting up in chair drowsy denies pain or headache ambulated this morning in lara per nurse brother at bedside Objective Objective Vital Signs Date Time Temp Pulse Resp B/P Pulse Ox O2 Delivery O2 Flow Rate FiO2 06/19/16 19:57 97.5 99 24 110/66 96 Room Air 97.5 06/16/16 01:00 2.0 Intake and Output 06/19/16 07:00 # Voids 4 Physical Exam General: No acute distress Neuro: Other (drowsy, MIRANDA) Skin: Other (dressing C,D,I) Assessment Assessment Problems Medical Problems: (1) Subdural hematoma Status: Acute (2) Supratherapeutic INR Status: Acute Plan Plan of Care INR 1.2 continue PT and increasing activity as tolerated Comment Review of Relevant I have reviewed the following items jordy (where applicable) has been applied. Labs Laboratory Tests Test 06/18/16 04:30 06/19/16 03:37 White Blood Count 10.7x10^3/uL (4.0-11.0) 10.8x10^3/uL (4.0-11.0) Red Blood Count 4.56x10^6/uL (4.30-5.70) 4.64x10^6/uL (4.30-5.70) Hemoglobin 13.7g/dL (13.0-17.5) 14.3g/dL (13.0-17.5) Hematocrit 40.5% (39.0-53.0) 41.7% (39.0-53.0) Mean Corpuscular Volume 89fL (79-100) 90fL (79-100) Mean Corpuscular Hemoglobin 30pg (25-35) 31pg (25-35) Mean Corpuscular Hemoglobin Concent 34g/dL (31-37) 34g/dL (31-37) Red Cell Distribution Width 13.4% (11.5-14.5) 13.5% (11.5-14.5) Platelet Count 198x10^3/uL (140-400) 217x10^3/uL (140-400) Neutrophils (%) (Auto) 78% (31-73) 72% (31-73) Lymphocytes (%) (Auto) 8% (24-48) 13% (24-48) Monocytes (%) (Auto) 11% (0-9) 12% (0-9) Eosinophils (%) (Auto) 2% (0-3) 3% (0-3) Basophils (%) (Auto) 1% (0-3) 1% (0-3) Neutrophils # (Auto) 8.4x10^3uL (1.8-7.7) 7.8x10^3uL (1.8-7.7) Lymphocytes # (Auto) 0.9x10^3/uL (1.0-4.8) 1.4x10^3/uL (1.0-4.8) Monocytes # (Auto) 1.2x10^3/uL (0.0-1.1) 1.3x10^3/uL (0.0-1.1) Eosinophils # (Auto) 0.2x10^3/uL (0.0-0.7) 0.3x10^3/uL (0.0-0.7) Basophils # (Auto) 0.1x10^3/uL (0.0-0.2) 0.1x10^3/uL (0.0-0.2) Prothrombin Time 13.9SEC (11.7-14.0) 14.3SEC (11.7-14.0) Prothromb Time International Ratio 1.1 (0.8-1.1) 1.2 (0.8-1.1) Sodium Level 139mmol/L (136-145) 142mmol/L (136-145) Potassium Level 3.7mmol/L (3.5-5.1) 4.1mmol/L (3.5-5.1) Chloride Level 103mmol/L (98-107) 104mmol/L (98-107) Carbon Dioxide Level 26mmol/L (21-32) 26mmol/L (21-32) Anion Gap 10 (6-14) 12 (6-14) Blood Urea Nitrogen 13mg/dL (8-26) 15mg/dL (8-26) Creatinine 0.9mg/dL (0.7-1.3) 0.8mg/dL (0.7-1.3) Estimated GFR (Cockcroft-Gault) 89.3 102.3 Glucose Level 149mg/dL (70-99) 92mg/dL (70-99) Calcium Level 9.0mg/dL (8.5-10.1) 8.9mg/dL (8.5-10.1) Laboratory Tests Test 06/19/16 03:37 White Blood Count 10.8x10^3/uL (4.0-11.0) Red Blood Count 4.64x10^6/uL (4.30-5.70) Hemoglobin 14.3g/dL (13.0-17.5) Hematocrit 41.7% (39.0-53.0) Mean Corpuscular Volume 90fL (79-100) Mean Corpuscular Hemoglobin 31pg (25-35) Mean Corpuscular Hemoglobin Concent 34g/dL (31-37) Red Cell Distribution Width 13.5% (11.5-14.5) Platelet Count 217x10^3/uL (140-400) Neutrophils (%) (Auto) 72% (31-73) Lymphocytes (%) (Auto) 13% (24-48) Monocytes (%) (Auto) 12% (0-9) Eosinophils (%) (Auto) 3% (0-3) Basophils (%) (Auto) 1% (0-3) Neutrophils # (Auto) 7.8x10^3uL (1.8-7.7) Lymphocytes # (Auto) 1.4x10^3/uL (1.0-4.8) Monocytes # (Auto) 1.3x10^3/uL (0.0-1.1) Eosinophils # (Auto) 0.3x10^3/uL (0.0-0.7) Basophils # (Auto) 0.1x10^3/uL (0.0-0.2) Prothrombin Time 14.3SEC (11.7-14.0) Prothromb Time International Ratio 1.2 (0.8-1.1) Sodium Level 142mmol/L (136-145) Potassium Level 4.1mmol/L (3.5-5.1) Chloride Level 104mmol/L (98-107) Carbon Dioxide Level 26mmol/L (21-32) Anion Gap 12 (6-14) Blood Urea Nitrogen 15mg/dL (8-26) Creatinine 0.8mg/dL (0.7-1.3) Estimated GFR (Cockcroft-Gault) 102.3 Glucose Level 92mg/dL (70-99) Calcium Level 8.9mg/dL (8.5-10.1) Microbiology 06/13/16 Urine Culture - Final, Complete 06/13/16 Urine Culture Result 1 (GLENN) - Final, Complete Medications Current Medications Sodium Chloride (Iv Sodium Chloride 0.9% 1000ml Bag) 1,000 ml @ 100 mls/hr 1X ONCE IV Last administered on 06/13/16 13:45; Start 06/13/16 at 13:45; Stop at 23:44; Status DC Phytonadione (Mephyton) 10 mg 1X ONCE PO Last administered on 06/13/16 15:03; Start 06/13/16 at 15:00; Stop 06/13/16 at 15:01; Status DC Ondansetron HCl 4 mg 4 mg PRN Q8HRS PRN IV NAUSEA/VOMITING; Start 06/13/16 at 16 :15; Stop 06/14/16 at 16:14; Status DC Sodium Chloride (Iv Sodium Chloride 0.9% 1000ml Bag) 1,000 ml @ 100 mls/hr Q10H IV Last administered on 06/14/16 05:49; Start 06/13/16 at 16:10; Stop at 13:20; Status DC Morphine Sulfate 2 mg 1X ONCE IV Last administered on 06/13/16 18:08; Start at 18:30; Stop 06/13/16 at 18:31; Status DC Oxycodone/ Acetaminophen (Percocet 5/325) 1 tab PRN Q4HRS PRN PO PAIN Last administered on 06/15/16 23:18; Start 06/13/16 at 18:00 Oxycodone/ Acetaminophen (Percocet 5/325) 2 tab PRN Q4HRS PRN PO PAIN Last administered on 06/17/16 04:50; Start 06/13/16 at 18:00 Metoprolol Succinate (Toprol Xl) 25 mg DAILY PO Last administered on 06/18/16 08:55; Start 06/14/16 at 09:00 Lorazepam 2 mg 2 mg PRN Q4HRS PRN IV ANXIETY / AGITATION; Start 06/13/16 at 19: 45 Levetiracetam 500 mg/Sodium Chloride 105 ml @ 400 mls/hr PRN Q12HRS PRN IV SEIZURES; Start 06/13/16 at 19:45 Potassium Chloride/Sodium Chloride (KCl 20 Meq-0.45% Nacl) 1,000 ml @ 100 mls/ hr Q10H IV Last administered on 06/17/16 03:24; Start 06/14/16 at 13:30; Stop 06/17/16 at 12:24; Status DC Warfarin Sodium (Coumadin Per Pharmacy) 1 each PRN DAILY PRN MC SEE COMMENTS Last administered on 06/19/16 12:34; Start 06/14/16 at 16:00 Warfarin Sodium 2.5 mg 2.5 mg 1X WARF ONCE PO ; Start 06/14/16 at 17:00; Stop at 17:01; Status Cancel Bacitracin/Sodium Chloride (Iv Sodium Chloride 0.9% 1000ml Bag) 1,000 ml @ 1, 000 mls/hr 1X PERIOP ONCE IRR Last administered on 06/15/16 12:41; Start at 10:00; Stop 06/15/16 at 10:59; Status DC Ondansetron HCl (Zofran) 4 mg PRN Q6HRS PRN IV Nausea; Start 06/15/16 at 10:00; Stop 06/16/16 at 09:59; Status DC Fentanyl Citrate (Fentanyl 2ml Vial) 25 mcg PRN Q5MIN PRN IV MILD PAIN; Start 06/15/16 at 10:00; Stop 06/16/16 at 09:59; Status DC Fentanyl Citrate (Fentanyl 2ml Vial) 50 mcg PRN Q5MIN PRN IV MODERATE PAIN; Start 06/15/16 at 10:00; Stop 06/16/16 at 09:59; Status DC Morphine Sulfate 1 mg 1 mg PRN Q10MIN PRN IV SEVERE PAIN; Start 06/15/16 at 10: 00; Stop 06/16/16 at 09:59; Status DC Lactated Ringer's (Iv Lactated Ringers) 1,000 ml @ 30 mls/hr Q24H IV ; Start at 09:47; Stop 06/15/16 at 21:46; Status DC Lidocaine HCl 2 ml 1X PRN PRN ID IV START; Start 06/15/16 at 10:00; Stop at 09:59; Status DC Hydromorphone HCl (Dilaudid) 0.5 mg PRN Q10MIN PRN IV SEV PAIN,Second choice; Start 06/15/16 at 10:00; Stop 06/16/16 at 09:59; Status DC Prochlorperazine Edisylate (Compazine) 5 mg PACU PRN PRN IV NAUSEA; Start at 10:00; Stop 06/16/16 at 09:59; Status DC Phytonadione (Vitamin K) 2 mg 1X ONCE SQ Last administered on 06/15/16t 11:21; Start 06/15/16 at 09:45; Stop 06/15/16 at 09:57; Status DC Dexamethasone Sodium Phosphate (Decadron) 20 mg STK-MED ONCE .ROUTE ; Start 06/15 at 10:26; Stop 06/15/16 at 10:27; Status DC Ondansetron HCl (Zofran) 4 mg STK-MED ONCE .ROUTE ; Start 06/15/16 at 10:26; Stop 06/15/16 at 10:27; Status DC Rocuronium [place] 50 mg 50 mg STK-MED ONCE .ROUTE ; Start 06/15/16 at 10:26; Stop 06/15/16 at 10:27; Status DC Propofol (Diprivan) 20 ml @ As Directed STK-MED ONCE IV ; Start 06/15/16 at 10:26 ; Stop 06/15/16 at 10:27; Status DC Lidocaine HCl 100 mg STK-MED ONCE .ROUTE ; Start 06/15/16 at 10:26; Stop 06/15/16 at 10:27; Status DC Fentanyl Citrate (Fentanyl 2ml Vial) 100 mcg STK-MED ONCE .ROUTE ; Start at 10:26; Stop 06/15/16 at 10:27; Status DC Thrombin 20,000 unit STK-MED ONCE TP Last administered on 06/15/16t 12:41; Start 06/15/16 at 10:47; Stop 06/15/16 at 10:48; Status DC Gelatin (Gelfoam Size 100) 1 each STK-MED ONCE .ROUTE Last administered on 06/15 12:41; Start 06/15/16 at 10:48; Stop 06/15/16 at 10:49; Status DC Bupivacaine HCl/ Epinephrine Bitart (Sensorcaine-Epi 0.25%-1:112761 Mpf) 30 ml STK-MED ONCE .ROUTE Last administered on 06/15/16 12:41; Start 06/15/16 at 10:48 ; Stop 06/15/16 at 10:49; Status DC Cellulose 1 each STK-MED ONCE .ROUTE ; Start 06/15/16 at 10:49; Stop 06/15/16 at 10:50; Status DC Potassium Chloride 20 meq 20 meq 1X ONCE PO Last administered on 06/15/16 11: 21; Start 06/15/16 at 11:15; Stop 06/15/16 at 11:16; Status DC Cefazolin Sodium/ Dextrose (Ancef 2gm Premix) 50 ml @ 100 mls/hr 1X PREOP PRN IV PER PROTOCOL Last administered on 06/15/16 12:56; Start 06/16/16 at 06:00; Stop 06/16/16 at 18:00; Status DC Ephedrine Sulfate 50 mg STK-MED ONCE IV ; Start 06/15/16 at 13:04; Stop 06/15/16 at 13:05; Status DC Glycopyrrolate (Robinul) 1 mg STK-MED ONCE .ROUTE ; Start 06/15/16 at 13:39; Stop 06/15/16 at 13:40; Status DC Neostigmine Methylsulfate 5 mg STK-MED ONCE .ROUTE ; Start 06/15/16 at 13:39; Stop 06/15/16 at 13:40; Status DC Fentanyl Citrate (Fentanyl 2ml Vial) 100 mcg STK-MED ONCE .ROUTE ; Start at 13:55; Stop 06/15/16 at 13:56; Status DC Sevoflurane (Ultane) 30 ml STK-MED ONCE IH ; Start 06/15/16 at 13:55; Stop at 13:56; Status DC Sevoflurane (Ultane) 60 ml STK-MED ONCE IH ; Start 06/15/16 at 13:55; Stop at 13:56; Status DC Warfarin Sodium (Coumadin - No Dose Today) 1 each 1X WARF ONCE MC Last administered on 06/15/16 16:00; Start 06/15/16 at 16:00; Stop 06/15/16 at 16:01; Status DC Cefazolin Sodium/ Dextrose (Ancef 2gm Premix) 2 gm STK-MED ONCE IV ; Start at 13:00; Stop 06/16/16 at 08:05; Status DC Famotidine (Pepcid) 20 mg BID IVP ; Start 06/16/16 at 21:00; Stop 06/16/16 at 21 :00; Status DC Famotidine (Pepcid) 20 mg BID PO Last administered on 06/18/16 22:48; Start at 13:00 Warfarin Sodium (Coumadin) 5 mg 1X WARF ONCE PO Last administered on 18:15; Start 06/17/16 at 16:00; Stop 06/17/16 at 16:01; Status DC Warfarin Sodium (Coumadin) 7.5 mg 1X WARF ONCE PO Last administered on 16:25; Start 06/18/16 at 16:00; Stop 06/18/16 at 16:01; Status DC Ondansetron HCl (Zofran) 4 mg PRN Q6HRS PRN IV NAUSEA/VOMITING Last administered on 06/19/16 03:08; Start 06/19/16 at 03:00 Morphine Sulfate 2 mg PRN Q2HR PRN IV PAIN Last administered on 06/19/16 03:09 ; Start 06/19/16 at 03:00 Warfarin Sodium 7.5 mg 7.5 mg 1X WARF ONCE PO ; Start 06/19/16 at 16:00; Stop 06/19/16 at 16:01; Status DC Amino Acids/ Glycerin/ Electrolytes (Procalamine) 1,000 ml @ 75 mls/hr [id number] IV Last administered on 06/19/16 16:40; Start 06/19/16 at 16:15 Active Scripts Active Reported Coumadin (Warfarin Sodium) 5 Mg Tablet 1 Tab PO DAILY Metoprolol Succinate ( Xl ) (Metoprolol Succinate) 25 Mg Tab.er.24h 25 Mg PO DAILY Vitals/I & O Vital Sign - Last 24 Hours 06/18/16 06/19/16 06/19/16 06/19/16 23:40 03:09 03:13 03:35 Temp 97.9 98.1 97.9 98.1 Pulse 86 84 Resp 18 18 16 B/P 109/69 110/75 Pulse Ox 95 93 O2 Delivery Room Air Room Air Room Air Room Air 06/19/16 06/19/16 06/19/16 06/19/16 07:00 07:40 11:00 15:00 Temp 97.9 98.0 99.0 97.9 98.0 99.0 Pulse 91 89 73 Resp 18 B/P 104/62 85/59 95/56 Pulse Ox 94 96 98 O2 Delivery Room Air Room Air Room Air Room Air 06/19/16 19:57 Temp 97.5 97.5 Pulse 99 Resp 24 B/P 110/66 Pulse Ox 96 O2 Delivery Room Air NATE LINCOLN APRN Jun 19, 2016 22:01
[2016-06-19 23:25] VITALS: BP 121/65
[2016-06-20] MEDS: MORPHINE SULFATE 2 MG/ML DISP.SYRIN. IV PRN ×2 (03:29→08:06)
[2016-06-20 03:46] VITALS: BP 110/62
[2016-06-20] MEDS: AA 3%/ELECTROLYTE-TPN SOLN/GLY 1,000 ML IV SCH ×2 (05:23→20:21)
[2016-06-20 06:26] LABS: BASO # 0.1 x10^3/uL (0.0-0.2); BASO % 1 % (0-3); EOS % 1 % (0-3); HEMATOCRIT 42.1 % (39.0-53.0); HEMOGLOBIN 13.9 g/dL (13.0-17.5); LYMPH # 0.7 x10^3/uL (1.0-4.8); LYMPH % 6 % (24-48); MEAN CORPUSCULAR HEMOGLOBIN 30 pg (25-35); MEAN CORPUSCULAR HGB CONC 33 g/dL (31-37); MEAN CORPUSCULAR VOLUME 90 fL (79-100); MONO % 10 % (0-9); NEUT % 82 % (31-73); PLATELET COUNT 223 x10^3/uL (140-400); RED BLOOD COUNT 4.69 x10^6/uL (4.30-5.70); RED CELL DISTRIBUTION WIDTH 13.1 % (11.5-14.5); WHITE BLOOD COUNT 11.5 x10^3/uL (4.0-11.0)
[2016-06-20 06:31] LABS: INR 1.2 (0.8-1.1); PROTHROMBIN TIME PATIENT 14.4 SEC (11.7-14.0)
[2016-06-20 06:53] LABS: CALCIUM 9.1 mg/dL (8.5-10.1); CREATININE 0.8 mg/dL (0.7-1.3); GFR 102.3; POTASSIUM 4.1 mmol/L (3.5-5.1)
[2016-06-20 07:00] VITALS: BP 100/68
[2016-06-20] MEDS: METOPROLOL SUCC 24HR ER 25 MG TAB.ER.24H. PO SCH (09:00)
[2016-06-20] MEDS: FAMOTIDINE 20 MG TABLET. PO SCH ×2 (09:00→20:20)
--- NOTE | 2016-06-20 10:13 | PDOC ---
PROGRESS NOTES Assessment Problems Medical Problems: (1) Subdural hematoma Status: Acute (2) Supratherapeutic INR Status: Acute Bilateral SDH, Status post nela hole on left Headache Metabolic encephalopathy. Confusion Marfan's syndrome. Left eye vision loss. Dysphagia, on nothing by mouth status Plan Narcotic effects, may benefit from a shorter acting one such as fentanyl. Will replace morphine with fentanyl Keppra if seizures. Warfarin has been resumed BP control. I suspect he'll need the right subdural drained as well Subjective No complaints, nurse reports that he gets the morphine and is groggy all day, but he was lucid last night. Objective Vital Signs Date Time Temp Pulse Resp B/P Pulse Ox O2 Delivery O2 Flow Rate FiO2 06/20/16 08:06 14 97 Room Air 06/20/16 07:00 97.3 86 100/68 97.3 Intake and Output 06/20/16 07:00 Intake Total 0 ml Balance 0 ml Intake Oral 0 ml # Voids 3 PHYSICAL EXAM Drowsy, does follow commands, knows that he is in the hospital, does not know the date No hiccups Left cornea is scarred, right pupil reacts EOMI. CN: no focal findings. Limited right eye fundus exam negative Muscle tone: normal. Muscle strength: 5-/5 DTR: 2+ Plantar reflex: flexor Gait: not examined in bed. Sensory exam: no abnormal findings. No cerebellar signs Review of Relevant I have reviewed the following items jordy (where applicable) has been applied. Labs Laboratory Tests Test 06/19/16 03:37 06/20/16 05:10 White Blood Count 10.8x10^3/uL (4.0-11.0) 11.5x10^3/uL (4.0-11.0) Red Blood Count 4.64x10^6/uL (4.30-5.70) 4.69x10^6/uL (4.30-5.70) Hemoglobin 14.3g/dL (13.0-17.5) 13.9g/dL (13.0-17.5) Hematocrit 41.7% (39.0-53.0) 42.1% (39.0-53.0) Mean Corpuscular Volume 90fL (79-100) 90fL (79-100) Mean Corpuscular Hemoglobin 31pg (25-35) 30pg (25-35) Mean Corpuscular Hemoglobin Concent 34g/dL (31-37) 33g/dL (31-37) Red Cell Distribution Width 13.5% (11.5-14.5) 13.1% (11.5-14.5) Platelet Count 217x10^3/uL (140-400) 223x10^3/uL (140-400) Neutrophils (%) (Auto) 72% (31-73) 82% (31-73) Lymphocytes (%) (Auto) 13% (24-48) 6% (24-48) Monocytes (%) (Auto) 12% (0-9) 10% (0-9) Eosinophils (%) (Auto) 3% (0-3) 1% (0-3) Basophils (%) (Auto) 1% (0-3) 1% (0-3) Neutrophils # (Auto) 7.8x10^3uL (1.8-7.7) 9.4x10^3uL (1.8-7.7) Lymphocytes # (Auto) 1.4x10^3/uL (1.0-4.8) 0.7x10^3/uL (1.0-4.8) Monocytes # (Auto) 1.3x10^3/uL (0.0-1.1) 1.1x10^3/uL (0.0-1.1) Eosinophils # (Auto) 0.3x10^3/uL (0.0-0.7) 0.1x10^3/uL (0.0-0.7) Basophils # (Auto) 0.1x10^3/uL (0.0-0.2) 0.1x10^3/uL (0.0-0.2) Prothrombin Time 14.3SEC (11.7-14.0) 14.4SEC (11.7-14.0) Prothromb Time International Ratio 1.2 (0.8-1.1) 1.2 (0.8-1.1) Sodium Level 142mmol/L (136-145) 138mmol/L (136-145) Potassium Level 4.1mmol/L (3.5-5.1) 4.1mmol/L (3.5-5.1) Chloride Level 104mmol/L (98-107) 103mmol/L (98-107) Carbon Dioxide Level 26mmol/L (21-32) 26mmol/L (21-32) Anion Gap 12 (6-14) 9 (6-14) Blood Urea Nitrogen 15mg/dL (8-26) 22mg/dL (8-26) Creatinine 0.8mg/dL (0.7-1.3) 0.8mg/dL (0.7-1.3) Estimated GFR (Cockcroft-Gault) 102.3 102.3 Glucose Level 92mg/dL (70-99) 115mg/dL (70-99) Calcium Level 8.9mg/dL (8.5-10.1) 9.1mg/dL (8.5-10.1) Laboratory Tests Test 06/20/16 05:10 White Blood Count 11.5x10^3/uL (4.0-11.0) Red Blood Count 4.69x10^6/uL (4.30-5.70) Hemoglobin 13.9g/dL (13.0-17.5) Hematocrit 42.1% (39.0-53.0) Mean Corpuscular Volume 90fL (79-100) Mean Corpuscular Hemoglobin 30pg (25-35) Mean Corpuscular Hemoglobin Concent 33g/dL (31-37) Red Cell Distribution Width 13.1% (11.5-14.5) Platelet Count 223x10^3/uL (140-400) Neutrophils (%) (Auto) 82% (31-73) Lymphocytes (%) (Auto) 6% (24-48) Monocytes (%) (Auto) 10% (0-9) Eosinophils (%) (Auto) 1% (0-3) Basophils (%) (Auto) 1% (0-3) Neutrophils # (Auto) 9.4x10^3uL (1.8-7.7) Lymphocytes # (Auto) 0.7x10^3/uL (1.0-4.8) Monocytes # (Auto) 1.1x10^3/uL (0.0-1.1) Eosinophils # (Auto) 0.1x10^3/uL (0.0-0.7) Basophils # (Auto) 0.1x10^3/uL (0.0-0.2) Prothrombin Time 14.4SEC (11.7-14.0) Prothromb Time International Ratio 1.2 (0.8-1.1) Sodium Level 138mmol/L (136-145) Potassium Level 4.1mmol/L (3.5-5.1) Chloride Level 103mmol/L (98-107) Carbon Dioxide Level 26mmol/L (21-32) Anion Gap 9 (6-14) Blood Urea Nitrogen 22mg/dL (8-26) Creatinine 0.8mg/dL (0.7-1.3) Estimated GFR (Cockcroft-Gault) 102.3 Glucose Level 115mg/dL (70-99) Calcium Level 9.1mg/dL (8.5-10.1) Microbiology 06/13/16 Urine Culture - Final, Complete 06/13/16 Urine Culture Result 1 (GLENN) - Final, Complete Medications Current Medications Sodium Chloride (Iv Sodium Chloride 0.9% 1000ml Bag) 1,000 ml @ 100 mls/hr 1X ONCE IV Last administered on 06/13/16 13:45; Start 06/13/16 at 13:45; Stop at 23:44; Status DC Phytonadione (Mephyton) 10 mg 1X ONCE PO Last administered on 06/13/16 15:03; Start 06/13/16 at 15:00; Stop 06/13/16 at 15:01; Status DC Ondansetron HCl 4 mg 4 mg PRN Q8HRS PRN IV NAUSEA/VOMITING; Start 06/13/16 at 16 :15; Stop 06/14/16 at 16:14; Status DC Sodium Chloride (Iv Sodium Chloride 0.9% 1000ml Bag) 1,000 ml @ 100 mls/hr Q10H IV Last administered on 06/14/16 05:49; Start 06/13/16 at 16:10; Stop at 13:20; Status DC Morphine Sulfate 2 mg 1X ONCE IV Last administered on 06/13/16 18:08; Start at 18:30; Stop 06/13/16 at 18:31; Status DC Oxycodone/ Acetaminophen (Percocet 5/325) 1 tab PRN Q4HRS PRN PO PAIN Last administered on 06/15/16 23:18; Start 06/13/16 at 18:00 Oxycodone/ Acetaminophen (Percocet 5/325) 2 tab PRN Q4HRS PRN PO PAIN Last administered on 06/17/16 04:50; Start 06/13/16 at 18:00 Metoprolol Succinate (Toprol Xl) 25 mg DAILY PO Last administered on 06/18/16 08:55; Start 06/14/16 at 09:00 Lorazepam 2 mg 2 mg PRN Q4HRS PRN IV ANXIETY / AGITATION; Start 06/13/16 at 19: 45 Levetiracetam 500 mg/Sodium Chloride 105 ml @ 400 mls/hr PRN Q12HRS PRN IV SEIZURES; Start 06/13/16 at 19:45 Potassium Chloride/Sodium Chloride (KCl 20 Meq-0.45% Nacl) 1,000 ml @ 100 mls/ hr Q10H IV Last administered on 06/17/16 03:24; Start 06/14/16 at 13:30; Stop 06/17/16 at 12:24; Status DC Warfarin Sodium (Coumadin Per Pharmacy) 1 each PRN DAILY PRN MC SEE COMMENTS Last administered on 06/19/16 12:34; Start 06/14/16 at 16:00 Warfarin Sodium 2.5 mg 2.5 mg 1X WARF ONCE PO ; Start 06/14/16 at 17:00; Stop at 17:01; Status Cancel Bacitracin/Sodium Chloride (Iv Sodium Chloride 0.9% 1000ml Bag) 1,000 ml @ 1, 000 mls/hr 1X PERIOP ONCE IRR Last administered on 06/15/16 12:41; Start at 10:00; Stop 06/15/16 at 10:59; Status DC Ondansetron HCl (Zofran) 4 mg PRN Q6HRS PRN IV Nausea; Start 06/15/16 at 10:00; Stop 06/16/16 at 09:59; Status DC Fentanyl Citrate (Fentanyl 2ml Vial) 25 mcg PRN Q5MIN PRN IV MILD PAIN; Start 06/15/16 at 10:00; Stop 06/16/16 at 09:59; Status DC Fentanyl Citrate (Fentanyl 2ml Vial) 50 mcg PRN Q5MIN PRN IV MODERATE PAIN; Start 06/15/16 at 10:00; Stop 06/16/16 at 09:59; Status DC Morphine Sulfate 1 mg 1 mg PRN Q10MIN PRN IV SEVERE PAIN; Start 06/15/16 at 10: 00; Stop 06/16/16 at 09:59; Status DC Lactated Ringer's (Iv Lactated Ringers) 1,000 ml @ 30 mls/hr Q24H IV ; Start at 09:47; Stop 06/15/16 at 21:46; Status DC Lidocaine HCl 2 ml 1X PRN PRN ID IV START; Start 06/15/16 at 10:00; Stop at 09:59; Status DC Hydromorphone HCl (Dilaudid) 0.5 mg PRN Q10MIN PRN IV SEV PAIN,Second choice; Start 06/15/16 at 10:00; Stop 06/16/16 at 09:59; Status DC Prochlorperazine Edisylate (Compazine) 5 mg PACU PRN PRN IV NAUSEA; Start at 10:00; Stop 06/16/16 at 09:59; Status DC Phytonadione (Vitamin K) 2 mg 1X ONCE SQ Last administered on 06/15/16t 11:21; Start 06/15/16 at 09:45; Stop 06/15/16 at 09:57; Status DC Dexamethasone Sodium Phosphate (Decadron) 20 mg STK-MED ONCE .ROUTE ; Start 06/15 at 10:26; Stop 06/15/16 at 10:27; Status DC Ondansetron HCl (Zofran) 4 mg STK-MED ONCE .ROUTE ; Start 06/15/16 at 10:26; Stop 06/15/16 at 10:27; Status DC Rocuronium [place] 50 mg 50 mg STK-MED ONCE .ROUTE ; Start 06/15/16 at 10:26; Stop 06/15/16 at 10:27; Status DC Propofol (Diprivan) 20 ml @ As Directed STK-MED ONCE IV ; Start 06/15/16 at 10:26 ; Stop 06/15/16 at 10:27; Status DC Lidocaine HCl 100 mg STK-MED ONCE .ROUTE ; Start 06/15/16 at 10:26; Stop 06/15/16 at 10:27; Status DC Fentanyl Citrate (Fentanyl 2ml Vial) 100 mcg STK-MED ONCE .ROUTE ; Start at 10:26; Stop 06/15/16 at 10:27; Status DC Thrombin 20,000 unit STK-MED ONCE TP Last administered on 06/15/16 12:41; Start 06/15/16 at 10:47; Stop 06/15/16 at 10:48; Status DC Gelatin (Gelfoam Size 100) 1 each STK-MED ONCE .ROUTE Last administered on 06/15 12:41; Start 06/15/16 at 10:48; Stop 06/15/16 at 10:49; Status DC Bupivacaine HCl/ Epinephrine Bitart (Sensorcaine-Epi 0.25%-1:[id number] Mpf) 30 ml STK-MED ONCE .ROUTE Last administered on 06/15/16 12:41; Start 06/15/16 at 10:48 ; Stop 06/15/16 at 10:49; Status DC Cellulose 1 each STK-MED ONCE .ROUTE ; Start 06/15/16 at 10:49; Stop 06/15/16 at 10:50; Status DC Potassium Chloride 20 meq 20 meq 1X ONCE PO Last administered on 06/15/16 11: 21; Start 06/15/16 at 11:15; Stop 06/15/16 at 11:16; Status DC Cefazolin Sodium/ Dextrose (Ancef 2gm Premix) 50 ml @ 100 mls/hr 1X PREOP PRN IV PER PROTOCOL Last administered on 06/15/16 12:56; Start 06/16/16 at 06:00; Stop 06/16/16 at 18:00; Status DC Ephedrine Sulfate 50 mg STK-MED ONCE IV ; Start 06/15/16 at 13:04; Stop 06/15/16 at 13:05; Status DC Glycopyrrolate (Robinul) 1 mg STK-MED ONCE .ROUTE ; Start 06/15/16 at 13:39; Stop 06/15/16 at 13:40; Status DC Neostigmine Methylsulfate 5 mg STK-MED ONCE .ROUTE ; Start 06/15/16 at 13:39; Stop 06/15/16 at 13:40; Status DC Fentanyl Citrate (Fentanyl 2ml Vial) 100 mcg STK-MED ONCE .ROUTE ; Start at 13:55; Stop 06/15/16 at 13:56; Status DC Sevoflurane (Ultane) 30 ml STK-MED ONCE IH ; Start 06/15/16 at 13:55; Stop at 13:56; Status DC Sevoflurane (Ultane) 60 ml STK-MED ONCE IH ; Start 06/15/16 at 13:55; Stop at 13:56; Status DC Warfarin Sodium (Coumadin - No Dose Today) 1 each 1X WARF ONCE MC Last administered on 06/15/16 16:00; Start 06/15/16 at 16:00; Stop 06/15/16 at 16:01; Status DC Cefazolin Sodium/ Dextrose (Ancef 2gm Premix) 2 gm STK-MED ONCE IV ; Start at 13:00; Stop 06/16/16 at 08:05; Status DC Famotidine (Pepcid) 20 mg BID IVP ; Start 06/16/16 at 21:00; Stop 06/16/16 at 21 :00; Status DC Famotidine (Pepcid) 20 mg BID PO Last administered on 06/18/16 22:48; Start at 13:00 Warfarin Sodium (Coumadin) 5 mg 1X WARF ONCE PO Last administered on 18:15; Start 06/17/16 at 16:00; Stop 06/17/16 at 16:01; Status DC Warfarin Sodium (Coumadin) 7.5 mg 1X WARF ONCE PO Last administered on 16:25; Start 06/18/16 at 16:00; Stop 06/18/16 at 16:01; Status DC Ondansetron HCl (Zofran) 4 mg PRN Q6HRS PRN IV NAUSEA/VOMITING Last administered on 06/19/16 03:08; Start 06/19/16 at 03:00 Morphine Sulfate 2 mg PRN Q2HR PRN IV PAIN Last administered on 06/20/16 08:06 ; Start 06/19/16 at 03:00 Warfarin Sodium 7.5 mg 7.5 mg 1X WARF ONCE PO ; Start 06/19/16 at 16:00; Stop 06/19/16 at 16:01; Status DC Amino Acids/ Glycerin/ Electrolytes (Procalamine) 1,000 ml @ 75 mls/hr [id number] IV Last administered on 06/20/16t 05:23; Start 06/19/16 at 16:15 Active Scripts Active Reported Coumadin (Warfarin Sodium) 5 Mg Tablet 1 Tab PO DAILY Metoprolol Succinate ( Xl ) (Metoprolol Succinate) 25 Mg Tab.er.24h 25 Mg PO DAILY Vitals/I & O Vital Sign - Last 24 Hours 06/19/16 06/19/16 06/19/16 06/19/16 11:00 15:00 19:57 20:00 Temp 98.0 99.0 97.5 98.0 99.0 97.5 Pulse 89 73 99 Resp 18 18 24 B/P 85/59 95/56 110/66 Pulse Ox 96 98 96 O2 Delivery Room Air Room Air Room Air Room Air 06/19/16 06/20/16 06/20/16 06/20/16 23:25 03:29 03:46 07:00 Temp 97.5 98.4 97.3 97.5 98.4 97.3 Pulse 57 96 86 Resp 16 20 18 B/P 121/65 110/62 100/68 Pulse Ox 98 92 92 O2 Delivery Room Air Room Air Room Air Room Air 06/20/16 08:06 Resp 14 Pulse Ox 97 O2 Delivery Room Air Intake and Output 06/19/16 06/19/16 06/20/16 15:00 23:00 07:00 Intake Total 0 ml Balance 0 ml EDWARD AMBROSE MD Jun 20, 2016 10:12
[2016-06-20] MEDS ORDERED: FENTANYL PF 100 MCG/2 ML VIAL. IM PRN (10:15)
[2016-06-20 11:00] VITALS: BP 104/71
--- NOTE | 2016-06-20 11:42 | PDOC ---
PROGRESS NOTES Chief Complaint Chief Complaint cc: headaches Bilateral subdural hematoma Confusion likely due to Morphine. Marfan's syndrome with hx of aortic and mitral valve replacements Left eye blindness HTN stable, Plan s/p Gema hole left, recovering, NS following Coumadin resumed, INR not therapeutic. BP well controlled. Fentanyl for pain control, limit narcotics as much as possible, avoid co2 narcosis. History of Present Illness History of Present Illness drowsy no fever. per RN, he is looking better at night time, AO times 3. Vitals Vitals Vital Signs Date Time Temp Pulse Resp B/P Pulse Ox O2 Delivery O2 Flow Rate FiO2 06/20/16 09:00 86 100/68 06/20/16 08:06 14 97 Room Air 06/20/16 07:00 97.3 97.3 Physical Exam General: Alert, No acute distress, Other (drowsy) Heart: Regular rate, Normal S1 Lungs: Clear, Other Abdomen: Normal bowel sounds Extremities: No clubbing, No cyanosis, No edema Skin: Other Labs LABS Laboratory Tests Test 06/20/16 05:10 White Blood Count 11.5x10^3/uL (4.0-11.0) Red Blood Count 4.69x10^6/uL (4.30-5.70) Hemoglobin 13.9g/dL (13.0-17.5) Hematocrit 42.1% (39.0-53.0) Mean Corpuscular Volume 90fL (79-100) Mean Corpuscular Hemoglobin 30pg (25-35) Mean Corpuscular Hemoglobin Concent 33g/dL (31-37) Red Cell Distribution Width 13.1% (11.5-14.5) Platelet Count 223x10^3/uL (140-400) Neutrophils (%) (Auto) 82% (31-73) Lymphocytes (%) (Auto) 6% (24-48) Monocytes (%) (Auto) 10% (0-9) Eosinophils (%) (Auto) 1% (0-3) Basophils (%) (Auto) 1% (0-3) Neutrophils # (Auto) 9.4x10^3uL (1.8-7.7) Lymphocytes # (Auto) 0.7x10^3/uL (1.0-4.8) Monocytes # (Auto) 1.1x10^3/uL (0.0-1.1) Eosinophils # (Auto) 0.1x10^3/uL (0.0-0.7) Basophils # (Auto) 0.1x10^3/uL (0.0-0.2) Prothrombin Time 14.4SEC (11.7-14.0) Prothromb Time International Ratio 1.2 (0.8-1.1) Sodium Level 138mmol/L (136-145) Potassium Level 4.1mmol/L (3.5-5.1) Chloride Level 103mmol/L (98-107) Carbon Dioxide Level 26mmol/L (21-32) Anion Gap 9 (6-14) Blood Urea Nitrogen 22mg/dL (8-26) Creatinine 0.8mg/dL (0.7-1.3) Estimated GFR (Cockcroft-Gault) 102.3 Glucose Level 115mg/dL (70-99) Calcium Level 9.1mg/dL (8.5-10.1) Assessment and Plan Assessmemt and Plan Problems Medical Problems: (1) Subdural hematoma Status: Acute (2) Supratherapeutic INR Status: Acute Problems: Comment Review of Relevant I have reviewed the following items jordy (where applicable) has been applied. Labs Laboratory Tests Test 06/19/16 03:37 06/20/16 05:10 White Blood Count 10.8x10^3/uL (4.0-11.0) 11.5x10^3/uL (4.0-11.0) Red Blood Count 4.64x10^6/uL (4.30-5.70) 4.69x10^6/uL (4.30-5.70) Hemoglobin 14.3g/dL (13.0-17.5) 13.9g/dL (13.0-17.5) Hematocrit 41.7% (39.0-53.0) 42.1% (39.0-53.0) Mean Corpuscular Volume 90fL (79-100) 90fL (79-100) Mean Corpuscular Hemoglobin 31pg (25-35) 30pg (25-35) Mean Corpuscular Hemoglobin Concent 34g/dL (31-37) 33g/dL (31-37) Red Cell Distribution Width 13.5% (11.5-14.5) 13.1% (11.5-14.5) Platelet Count 217x10^3/uL (140-400) 223x10^3/uL (140-400) Neutrophils (%) (Auto) 72% (31-73) 82% (31-73) Lymphocytes (%) (Auto) 13% (24-48) 6% (24-48) Monocytes (%) (Auto) 12% (0-9) 10% (0-9) Eosinophils (%) (Auto) 3% (0-3) 1% (0-3) Basophils (%) (Auto) 1% (0-3) 1% (0-3) Neutrophils # (Auto) 7.8x10^3uL (1.8-7.7) 9.4x10^3uL (1.8-7.7) Lymphocytes # (Auto) 1.4x10^3/uL (1.0-4.8) 0.7x10^3/uL (1.0-4.8) Monocytes # (Auto) 1.3x10^3/uL (0.0-1.1) 1.1x10^3/uL (0.0-1.1) Eosinophils # (Auto) 0.3x10^3/uL (0.0-0.7) 0.1x10^3/uL (0.0-0.7) Basophils # (Auto) 0.1x10^3/uL (0.0-0.2) 0.1x10^3/uL (0.0-0.2) Prothrombin Time 14.3SEC (11.7-14.0) 14.4SEC (11.7-14.0) Prothromb Time International Ratio 1.2 (0.8-1.1) 1.2 (0.8-1.1) Sodium Level 142mmol/L (136-145) 138mmol/L (136-145) Potassium Level 4.1mmol/L (3.5-5.1) 4.1mmol/L (3.5-5.1) Chloride Level 104mmol/L (98-107) 103mmol/L (98-107) Carbon Dioxide Level 26mmol/L (21-32) 26mmol/L (21-32) Anion Gap 12 (6-14) 9 (6-14) Blood Urea Nitrogen 15mg/dL (8-26) 22mg/dL (8-26) Creatinine 0.8mg/dL (0.7-1.3) 0.8mg/dL (0.7-1.3) Estimated GFR (Cockcroft-Gault) 102.3 102.3 Glucose Level 92mg/dL (70-99) 115mg/dL (70-99) Calcium Level 8.9mg/dL (8.5-10.1) 9.1mg/dL (8.5-10.1) Laboratory Tests Test 06/20/16 05:10 White Blood Count 11.5x10^3/uL (4.0-11.0) Red Blood Count 4.69x10^6/uL (4.30-5.70) Hemoglobin 13.9g/dL (13.0-17.5) Hematocrit 42.1% (39.0-53.0) Mean Corpuscular Volume 90fL (79-100) Mean Corpuscular Hemoglobin 30pg (25-35) Mean Corpuscular Hemoglobin Concent 33g/dL (31-37) Red Cell Distribution Width 13.1% (11.5-14.5) Platelet Count 223x10^3/uL (140-400) Neutrophils (%) (Auto) 82% (31-73) Lymphocytes (%) (Auto) 6% (24-48) Monocytes (%) (Auto) 10% (0-9) Eosinophils (%) (Auto) 1% (0-3) Basophils (%) (Auto) 1% (0-3) Neutrophils # (Auto) 9.4x10^3uL (1.8-7.7) Lymphocytes # (Auto) 0.7x10^3/uL (1.0-4.8) Monocytes # (Auto) 1.1x10^3/uL (0.0-1.1) Eosinophils # (Auto) 0.1x10^3/uL (0.0-0.7) Basophils # (Auto) 0.1x10^3/uL (0.0-0.2) Prothrombin Time 14.4SEC (11.7-14.0) Prothromb Time International Ratio 1.2 (0.8-1.1) Sodium Level 138mmol/L (136-145) Potassium Level 4.1mmol/L (3.5-5.1) Chloride Level 103mmol/L (98-107) Carbon Dioxide Level 26mmol/L (21-32) Anion Gap 9 (6-14) Blood Urea Nitrogen 22mg/dL (8-26) Creatinine 0.8mg/dL (0.7-1.3) Estimated GFR (Cockcroft-Gault) 102.3 Glucose Level 115mg/dL (70-99) Calcium Level 9.1mg/dL (8.5-10.1) Microbiology 06/13/16 Urine Culture - Final, Complete 06/13/16 Urine Culture Result 1 (GLENN) - Final, Complete Medications Current Medications Sodium Chloride (Iv Sodium Chloride 0.9% 1000ml Bag) 1,000 ml @ 100 mls/hr 1X ONCE IV Last administered on 06/13/16 13:45; Start 06/13/16 at 13:45; Stop at 23:44; Status DC Phytonadione (Mephyton) 10 mg 1X ONCE PO Last administered on 06/13/16 15:03; Start 06/13/16 at 15:00; Stop 06/13/16 at 15:01; Status DC Ondansetron HCl 4 mg 4 mg PRN Q8HRS PRN IV NAUSEA/VOMITING; Start 06/13/16 at 16 :15; Stop 06/14/16 at 16:14; Status DC Sodium Chloride (Iv Sodium Chloride 0.9% 1000ml Bag) 1,000 ml @ 100 mls/hr Q10H IV Last administered on 06/14/16 05:49; Start 06/13/16 at 16:10; Stop at 13:20; Status DC Morphine Sulfate 2 mg 1X ONCE IV Last administered on 06/13/16 18:08; Start at 18:30; Stop 06/13/16 at 18:31; Status DC Oxycodone/ Acetaminophen (Percocet 5/325) 1 tab PRN Q4HRS PRN PO PAIN Last administered on 06/15/16 23:18; Start 06/13/16 at 18:00 Oxycodone/ Acetaminophen (Percocet 5/325) 2 tab PRN Q4HRS PRN PO PAIN Last administered on 06/17/16 04:50; Start 06/13/16 at 18:00 Metoprolol Succinate (Toprol Xl) 25 mg DAILY PO Last administered on 06/18/16 08:55; Start 06/14/16 at 09:00 Lorazepam 2 mg 2 mg PRN Q4HRS PRN IV ANXIETY / AGITATION; Start 06/13/16 at 19: 45 Levetiracetam 500 mg/Sodium Chloride 105 ml @ 400 mls/hr PRN Q12HRS PRN IV SEIZURES; Start 06/13/16 at 19:45 Potassium Chloride/Sodium Chloride (KCl 20 Meq-0.45% Nacl) 1,000 ml @ 100 mls/ hr Q10H IV Last administered on 06/17/16 03:24; Start 06/14/16 at 13:30; Stop 06/17/16 at 12:24; Status DC Warfarin Sodium (Coumadin Per Pharmacy) 1 each PRN DAILY PRN MC SEE COMMENTS Last administered on 06/20/16 11:36; Start 06/14/16 at 16:00 Warfarin Sodium 2.5 mg 2.5 mg 1X WARF ONCE PO ; Start 06/14/16 at 17:00; Stop at 17:01; Status Cancel Bacitracin/Sodium Chloride (Iv Sodium Chloride 0.9% 1000ml Bag) 1,000 ml @ 1, 000 mls/hr 1X PERIOP ONCE IRR Last administered on 06/15/16 12:41; Start at 10:00; Stop 06/15/16 at 10:59; Status DC Ondansetron HCl (Zofran) 4 mg PRN Q6HRS PRN IV Nausea; Start 06/15/16 at 10:00; Stop 06/16/16 at 09:59; Status DC Fentanyl Citrate (Fentanyl 2ml Vial) 25 mcg PRN Q5MIN PRN IV MILD PAIN; Start 06/15/16 at 10:00; Stop 06/16/16 at 09:59; Status DC Fentanyl Citrate (Fentanyl 2ml Vial) 50 mcg PRN Q5MIN PRN IV MODERATE PAIN; Start 06/15/16 at 10:00; Stop 06/16/16 at 09:59; Status DC Morphine Sulfate 1 mg 1 mg PRN Q10MIN PRN IV SEVERE PAIN; Start 06/15/16 at 10: 00; Stop 06/16/16 at 09:59; Status DC Lactated Ringer's (Iv Lactated Ringers) 1,000 ml @ 30 mls/hr Q24H IV ; Start at 09:47; Stop 06/15/16 at 21:46; Status DC Lidocaine HCl 2 ml 1X PRN PRN ID IV START; Start 06/15/16 at 10:00; Stop at 09:59; Status DC Hydromorphone HCl (Dilaudid) 0.5 mg PRN Q10MIN PRN IV SEV PAIN,Second choice; Start 06/15/16 at 10:00; Stop 06/16/16 at 09:59; Status DC Prochlorperazine Edisylate (Compazine) 5 mg PACU PRN PRN IV NAUSEA; Start at 10:00; Stop 06/16/16 at 09:59; Status DC Phytonadione (Vitamin K) 2 mg 1X ONCE SQ Last administered on 06/15/16t 11:21; Start 06/15/16 at 09:45; Stop 06/15/16 at 09:57; Status DC Dexamethasone Sodium Phosphate (Decadron) 20 mg STK-MED ONCE .ROUTE ; Start 06/15 at 10:26; Stop 06/15/16 at 10:27; Status DC Ondansetron HCl (Zofran) 4 mg STK-MED ONCE .ROUTE ; Start 06/15/16 at 10:26; Stop 06/15/16 at 10:27; Status DC Rocuronium [place] 50 mg 50 mg STK-MED ONCE .ROUTE ; Start 06/15/16 at 10:26; Stop 06/15/16 at 10:27; Status DC Propofol (Diprivan) 20 ml @ As Directed STK-MED ONCE IV ; Start 06/15/16 at 10:26 ; Stop 06/15/16 at 10:27; Status DC Lidocaine HCl 100 mg STK-MED ONCE .ROUTE ; Start 06/15/16 at 10:26; Stop 06/15/16 at 10:27; Status DC Fentanyl Citrate (Fentanyl 2ml Vial) 100 mcg STK-MED ONCE .ROUTE ; Start at 10:26; Stop 06/15/16 at 10:27; Status DC Thrombin 20,000 unit STK-MED ONCE TP Last administered on 06/15/16 12:41; Start 06/15/16 at 10:47; Stop 06/15/16 at 10:48; Status DC Gelatin (Gelfoam Size 100) 1 each STK-MED ONCE .ROUTE Last administered on 06/15 12:41; Start 06/15/16 at 10:48; Stop 06/15/16 at 10:49; Status DC Bupivacaine HCl/ Epinephrine Bitart (Sensorcaine-Epi 0.25%-1:[id number] Mpf) 30 ml STK-MED ONCE .ROUTE Last administered on 06/15/16 12:41; Start 06/15/16 at 10:48 ; Stop 06/15/16 at 10:49; Status DC Cellulose 1 each STK-MED ONCE .ROUTE ; Start 06/15/16 at 10:49; Stop 06/15/16 at 10:50; Status DC Potassium Chloride 20 meq 20 meq 1X ONCE PO Last administered on 06/15/16 11: 21; Start 06/15/16 at 11:15; Stop 06/15/16 at 11:16; Status DC Cefazolin Sodium/ Dextrose (Ancef 2gm Premix) 50 ml @ 100 mls/hr 1X PREOP PRN IV PER PROTOCOL Last administered on 06/15/16 12:56; Start 06/16/16 at 06:00; Stop 06/16/16 at 18:00; Status DC Ephedrine Sulfate 50 mg STK-MED ONCE IV ; Start 06/15/16 at 13:04; Stop 06/15/16 at 13:05; Status DC Glycopyrrolate (Robinul) 1 mg STK-MED ONCE .ROUTE ; Start 06/15/16 at 13:39; Stop 06/15/16 at 13:40; Status DC Neostigmine Methylsulfate 5 mg STK-MED ONCE .ROUTE ; Start 06/15/16 at 13:39; Stop 06/15/16 at 13:40; Status DC Fentanyl Citrate (Fentanyl 2ml Vial) 100 mcg STK-MED ONCE .ROUTE ; Start at 13:55; Stop 06/15/16 at 13:56; Status DC Sevoflurane (Ultane) 30 ml STK-MED ONCE IH ; Start 06/15/16 at 13:55; Stop at 13:56; Status DC Sevoflurane (Ultane) 60 ml STK-MED ONCE IH ; Start 06/15/16 at 13:55; Stop at 13:56; Status DC Warfarin Sodium (Coumadin - No Dose Today) 1 each 1X WARF ONCE MC Last administered on 06/15/16 16:00; Start 06/15/16 at 16:00; Stop 06/15/16 at 16:01; Status DC Cefazolin Sodium/ Dextrose (Ancef 2gm Premix) 2 gm STK-MED ONCE IV ; Start at 13:00; Stop 06/16/16 at 08:05; Status DC Famotidine (Pepcid) 20 mg BID IVP ; Start 06/16/16 at 21:00; Stop 06/16/16 at 21 :00; Status DC Famotidine (Pepcid) 20 mg BID PO Last administered on 06/18/16 22:48; Start at 13:00 Warfarin Sodium (Coumadin) 5 mg 1X WARF ONCE PO Last administered on 18:15; Start 06/17/16 at 16:00; Stop 06/17/16 at 16:01; Status DC Warfarin Sodium (Coumadin) 7.5 mg 1X WARF ONCE PO Last administered on 16:25; Start 06/18/16 at 16:00; Stop 06/18/16 at 16:01; Status DC Ondansetron HCl (Zofran) 4 mg PRN Q6HRS PRN IV NAUSEA/VOMITING Last administered on 06/19/16 03:08; Start 06/19/16 at 03:00 Morphine Sulfate 2 mg PRN Q2HR PRN IV PAIN Last administered on 06/20/16 08:06 ; Start 06/19/16 at 03:00; Stop 06/20/16 at 10:14; Status DC Warfarin Sodium 7.5 mg 7.5 mg 1X WARF ONCE PO ; Start 06/19/16 at 16:00; Stop 06/19/16 at 16:01; Status DC Amino Acids/ Glycerin/ Electrolytes (Procalamine) 1,000 ml @ 75 mls/hr [id number] IV Last administered on 06/20/16t 05:23; Start 06/19/16 at 16:15 Fentanyl Citrate (Fentanyl 2ml Vial) 50 mcg Q6HRS PRN IM BREAKTHROUGH PAIN; Start 06/20/16 at 10:15; Stop 06/20/16 at 11:08; Status DC Fentanyl Citrate (Fentanyl 2ml Vial) 50 mcg PRN Q6HRS PRN IV BREAKTHROUGH PAIN ; Start 06/20/16 at 11:15 Warfarin Sodium (Coumadin) 7.5 mg 1X WARF ONCE PO ; Start 06/20/16 at 16:00; Stop 06/20/16 at 16:01 Active Scripts Active Reported Coumadin (Warfarin Sodium) 5 Mg Tablet 1 Tab PO DAILY Metoprolol Succinate ( Xl ) (Metoprolol Succinate) 25 Mg Tab.er.24h 25 Mg PO DAILY Vitals/I & O Vital Sign - Last 24 Hours 06/19/16 06/19/16 06/19/16 06/19/16 15:00 19:57 20:00 23:25 Temp 99.0 97.5 97.5 99.0 97.5 97.5 Pulse 73 99 57 Resp 18 24 16 B/P 95/56 110/66 121/65 Pulse Ox 98 96 98 O2 Delivery Room Air Room Air Room Air Room Air 06/20/16 06/20/16 06/20/16 06/20/16 03:29 03:46 07:00 08:06 Temp 98.4 97.3 98.4 97.3 Pulse 96 86 Resp 20 18 14 B/P 110/62 100/68 Pulse Ox 92 92 97 O2 Delivery Room Air Room Air Room Air Room Air 06/20/16 09:00 Pulse 86 B/P 100/68 Intake and Output 06/19/16 06/19/16 06/20/16 15:00 23:00 07:00 Intake Total 0 ml Balance 0 ml CHRIS HARDIN MD Jun 20, 2016 11:42
[2016-06-20] MEDS: FENTANYL PF 100 MCG/2 ML VIAL. IV PRN (11:49)
[2016-06-20 15:00] VITALS: BP 106/72
[2016-06-20] MEDS ORDERED: WARFARIN 7.5 MG TABLET. PO ONE (16:00)
--- NOTE | 2016-06-20 16:56 | PDOC ---
PROGRESS NOTES Subjective Subjective patient seem at 1130 drowsy, confused, would answer questions per RN he is more alert at night Objective Objective Vital Signs Date Time Temp Pulse Resp B/P Pulse Ox O2 Delivery O2 Flow Rate FiO2 06/20/16 12:19 16 98 Room Air 06/20/16 11:00 97.5 85 104/71 97.5 06/16/16 01:00 2.0 Intake and Output 06/20/16 07:00 Intake Total 0 ml Balance 0 ml Intake Oral 0 ml # Voids 3 Physical Exam General: No acute distress Neuro: Other (MIRANDA) Skin: Other (dressing intact and dry) Assessment Assessment Problems Medical Problems: (1) Subdural hematoma Status: Acute (2) Supratherapeutic INR Status: Acute Plan Plan of Care F/u CT head from yesterday - compared with pre surgery CT there has been a significant improvement in the left SDH Increase activity as tolerated morphine d/c'd, fentanyl now ordered Comment Review of Relevant I have reviewed the following items jordy (where applicable) has been applied. Labs Laboratory Tests Test 06/19/16 03:37 06/20/16 05:10 White Blood Count 10.8x10^3/uL (4.0-11.0) 11.5x10^3/uL (4.0-11.0) Red Blood Count 4.64x10^6/uL (4.30-5.70) 4.69x10^6/uL (4.30-5.70) Hemoglobin 14.3g/dL (13.0-17.5) 13.9g/dL (13.0-17.5) Hematocrit 41.7% (39.0-53.0) 42.1% (39.0-53.0) Mean Corpuscular Volume 90fL (79-100) 90fL (79-100) Mean Corpuscular Hemoglobin 31pg (25-35) 30pg (25-35) Mean Corpuscular Hemoglobin Concent 34g/dL (31-37) 33g/dL (31-37) Red Cell Distribution Width 13.5% (11.5-14.5) 13.1% (11.5-14.5) Platelet Count 217x10^3/uL (140-400) 223x10^3/uL (140-400) Neutrophils (%) (Auto) 72% (31-73) 82% (31-73) Lymphocytes (%) (Auto) 13% (24-48) 6% (24-48) Monocytes (%) (Auto) 12% (0-9) 10% (0-9) Eosinophils (%) (Auto) 3% (0-3) 1% (0-3) Basophils (%) (Auto) 1% (0-3) 1% (0-3) Neutrophils # (Auto) 7.8x10^3uL (1.8-7.7) 9.4x10^3uL (1.8-7.7) Lymphocytes # (Auto) 1.4x10^3/uL (1.0-4.8) 0.7x10^3/uL (1.0-4.8) Monocytes # (Auto) 1.3x10^3/uL (0.0-1.1) 1.1x10^3/uL (0.0-1.1) Eosinophils # (Auto) 0.3x10^3/uL (0.0-0.7) 0.1x10^3/uL (0.0-0.7) Basophils # (Auto) 0.1x10^3/uL (0.0-0.2) 0.1x10^3/uL (0.0-0.2) Prothrombin Time 14.3SEC (11.7-14.0) 14.4SEC (11.7-14.0) Prothromb Time International Ratio 1.2 (0.8-1.1) 1.2 (0.8-1.1) Sodium Level 142mmol/L (136-145) 138mmol/L (136-145) Potassium Level 4.1mmol/L (3.5-5.1) 4.1mmol/L (3.5-5.1) Chloride Level 104mmol/L (98-107) 103mmol/L (98-107) Carbon Dioxide Level 26mmol/L (21-32) 26mmol/L (21-32) Anion Gap 12 (6-14) 9 (6-14) Blood Urea Nitrogen 15mg/dL (8-26) 22mg/dL (8-26) Creatinine 0.8mg/dL (0.7-1.3) 0.8mg/dL (0.7-1.3) Estimated GFR (Cockcroft-Gault) 102.3 102.3 Glucose Level 92mg/dL (70-99) 115mg/dL (70-99) Calcium Level 8.9mg/dL (8.5-10.1) 9.1mg/dL (8.5-10.1) Laboratory Tests Test 06/20/16 05:10 White Blood Count 11.5x10^3/uL (4.0-11.0) Red Blood Count 4.69x10^6/uL (4.30-5.70) Hemoglobin 13.9g/dL (13.0-17.5) Hematocrit 42.1% (39.0-53.0) Mean Corpuscular Volume 90fL (79-100) Mean Corpuscular Hemoglobin 30pg (25-35) Mean Corpuscular Hemoglobin Concent 33g/dL (31-37) Red Cell Distribution Width 13.1% (11.5-14.5) Platelet Count 223x10^3/uL (140-400) Neutrophils (%) (Auto) 82% (31-73) Lymphocytes (%) (Auto) 6% (24-48) Monocytes (%) (Auto) 10% (0-9) Eosinophils (%) (Auto) 1% (0-3) Basophils (%) (Auto) 1% (0-3) Neutrophils # (Auto) 9.4x10^3uL (1.8-7.7) Lymphocytes # (Auto) 0.7x10^3/uL (1.0-4.8) Monocytes # (Auto) 1.1x10^3/uL (0.0-1.1) Eosinophils # (Auto) 0.1x10^3/uL (0.0-0.7) Basophils # (Auto) 0.1x10^3/uL (0.0-0.2) Prothrombin Time 14.4SEC (11.7-14.0) Prothromb Time International Ratio 1.2 (0.8-1.1) Sodium Level 138mmol/L (136-145) Potassium Level 4.1mmol/L (3.5-5.1) Chloride Level 103mmol/L (98-107) Carbon Dioxide Level 26mmol/L (21-32) Anion Gap 9 (6-14) Blood Urea Nitrogen 22mg/dL (8-26) Creatinine 0.8mg/dL (0.7-1.3) Estimated GFR (Cockcroft-Gault) 102.3 Glucose Level 115mg/dL (70-99) Calcium Level 9.1mg/dL (8.5-10.1) Microbiology 06/13/16 Urine Culture - Final, Complete 06/13/16 Urine Culture Result 1 (GLENN) - Final, Complete Medications Current Medications Sodium Chloride (Iv Sodium Chloride 0.9% 1000ml Bag) 1,000 ml @ 100 mls/hr 1X ONCE IV Last administered on 06/13/16 13:45; Start 06/13/16 at 13:45; Stop at 23:44; Status DC Phytonadione (Mephyton) 10 mg 1X ONCE PO Last administered on 06/13/16 15:03; Start 06/13/16 at 15:00; Stop 06/13/16 at 15:01; Status DC Ondansetron HCl 4 mg 4 mg PRN Q8HRS PRN IV NAUSEA/VOMITING; Start 06/13/16 at 16 :15; Stop 06/14/16 at 16:14; Status DC Sodium Chloride (Iv Sodium Chloride 0.9% 1000ml Bag) 1,000 ml @ 100 mls/hr Q10H IV Last administered on 06/14/16 05:49; Start 06/13/16 at 16:10; Stop at 13:20; Status DC Morphine Sulfate 2 mg 1X ONCE IV Last administered on 06/13/16 18:08; Start at 18:30; Stop 06/13/16 at 18:31; Status DC Oxycodone/ Acetaminophen (Percocet 5/325) 1 tab PRN Q4HRS PRN PO PAIN Last administered on 06/15/16 23:18; Start 06/13/16 at 18:00 Oxycodone/ Acetaminophen (Percocet 5/325) 2 tab PRN Q4HRS PRN PO PAIN Last administered on 06/17/16 04:50; Start 06/13/16 at 18:00 Metoprolol Succinate (Toprol Xl) 25 mg DAILY PO Last administered on 06/18/16 08:55; Start 06/14/16 at 09:00 Lorazepam 2 mg 2 mg PRN Q4HRS PRN IV ANXIETY / AGITATION; Start 06/13/16 at 19: 45 Levetiracetam 500 mg/Sodium Chloride 105 ml @ 400 mls/hr PRN Q12HRS PRN IV SEIZURES; Start 06/13/16 at 19:45 Potassium Chloride/Sodium Chloride (KCl 20 Meq-0.45% Nacl) 1,000 ml @ 100 mls/ hr Q10H IV Last administered on 06/17/16 03:24; Start 06/14/16 at 13:30; Stop 06/17/16 at 12:24; Status DC Warfarin Sodium (Coumadin Per Pharmacy) 1 each PRN DAILY PRN MC SEE COMMENTS Last administered on 06/20/16 11:36; Start 06/14/16 at 16:00 Warfarin Sodium 2.5 mg 2.5 mg 1X WARF ONCE PO ; Start 06/14/16 at 17:00; Stop at 17:01; Status Cancel Bacitracin/Sodium Chloride (Iv Sodium Chloride 0.9% 1000ml Bag) 1,000 ml @ 1, 000 mls/hr 1X PERIOP ONCE IRR Last administered on 06/15/16 12:41; Start at 10:00; Stop 06/15/16 at 10:59; Status DC Ondansetron HCl (Zofran) 4 mg PRN Q6HRS PRN IV Nausea; Start 06/15/16 at 10:00; Stop 06/16/16 at 09:59; Status DC Fentanyl Citrate (Fentanyl 2ml Vial) 25 mcg PRN Q5MIN PRN IV MILD PAIN; Start 06/15/16 at 10:00; Stop 06/16/16 at 09:59; Status DC Fentanyl Citrate (Fentanyl 2ml Vial) 50 mcg PRN Q5MIN PRN IV MODERATE PAIN; Start 06/15/16 at 10:00; Stop 06/16/16 at 09:59; Status DC Morphine Sulfate 1 mg 1 mg PRN Q10MIN PRN IV SEVERE PAIN; Start 06/15/16 at 10: 00; Stop 06/16/16 at 09:59; Status DC Lactated Ringer's (Iv Lactated Ringers) 1,000 ml @ 30 mls/hr Q24H IV ; Start at 09:47; Stop 06/15/16 at 21:46; Status DC Lidocaine HCl 2 ml 1X PRN PRN ID IV START; Start 06/15/16 at 10:00; Stop at 09:59; Status DC Hydromorphone HCl (Dilaudid) 0.5 mg PRN Q10MIN PRN IV SEV PAIN,Second choice; Start 06/15/16 at 10:00; Stop 06/16/16 at 09:59; Status DC Prochlorperazine Edisylate (Compazine) 5 mg PACU PRN PRN IV NAUSEA; Start at 10:00; Stop 06/16/16 at 09:59; Status DC Phytonadione (Vitamin K) 2 mg 1X ONCE SQ Last administered on 06/15/16t 11:21; Start 06/15/16 at 09:45; Stop 06/15/16 at 09:57; Status DC Dexamethasone Sodium Phosphate (Decadron) 20 mg STK-MED ONCE .ROUTE ; Start 06/15 at 10:26; Stop 06/15/16 at 10:27; Status DC Ondansetron HCl (Zofran) 4 mg STK-MED ONCE .ROUTE ; Start 06/15/16 at 10:26; Stop 06/15/16 at 10:27; Status DC Rocuronium [place] 50 mg 50 mg STK-MED ONCE .ROUTE ; Start 06/15/16 at 10:26; Stop 06/15/16 at 10:27; Status DC Propofol (Diprivan) 20 ml @ As Directed STK-MED ONCE IV ; Start 06/15/16 at 10:26 ; Stop 06/15/16 at 10:27; Status DC Lidocaine HCl 100 mg STK-MED ONCE .ROUTE ; Start 06/15/16 at 10:26; Stop 06/15/16 at 10:27; Status DC Fentanyl Citrate (Fentanyl 2ml Vial) 100 mcg STK-MED ONCE .ROUTE ; Start at 10:26; Stop 06/15/16 at 10:27; Status DC Thrombin 20,000 unit STK-MED ONCE TP Last administered on 06/15/16t 12:41; Start 06/15/16 at 10:47; Stop 06/15/16 at 10:48; Status DC Gelatin (Gelfoam Size 100) 1 each STK-MED ONCE .ROUTE Last administered on 06/15 12:41; Start 06/15/16 at 10:48; Stop 06/15/16 at 10:49; Status DC Bupivacaine HCl/ Epinephrine Bitart (Sensorcaine-Epi 0.25%-1:036674 Mpf) 30 ml STK-MED ONCE .ROUTE Last administered on 06/15/16 12:41; Start 06/15/16 at 10:48 ; Stop 06/15/16 at 10:49; Status DC Cellulose 1 each STK-MED ONCE .ROUTE ; Start 06/15/16 at 10:49; Stop 06/15/16 at 10:50; Status DC Potassium Chloride 20 meq 20 meq 1X ONCE PO Last administered on 06/15/16 11: 21; Start 06/15/16 at 11:15; Stop 06/15/16 at 11:16; Status DC Cefazolin Sodium/ Dextrose (Ancef 2gm Premix) 50 ml @ 100 mls/hr 1X PREOP PRN IV PER PROTOCOL Last administered on 06/15/16 12:56; Start 06/16/16 at 06:00; Stop 06/16/16 at 18:00; Status DC Ephedrine Sulfate 50 mg STK-MED ONCE IV ; Start 06/15/16 at 13:04; Stop 06/15/16 at 13:05; Status DC Glycopyrrolate (Robinul) 1 mg STK-MED ONCE .ROUTE ; Start 06/15/16 at 13:39; Stop 06/15/16 at 13:40; Status DC Neostigmine Methylsulfate 5 mg STK-MED ONCE .ROUTE ; Start 06/15/16 at 13:39; Stop 06/15/16 at 13:40; Status DC Fentanyl Citrate (Fentanyl 2ml Vial) 100 mcg STK-MED ONCE .ROUTE ; Start at 13:55; Stop 06/15/16 at 13:56; Status DC Sevoflurane (Ultane) 30 ml STK-MED ONCE IH ; Start 06/15/16 at 13:55; Stop at 13:56; Status DC Sevoflurane (Ultane) 60 ml STK-MED ONCE IH ; Start 06/15/16 at 13:55; Stop at 13:56; Status DC Warfarin Sodium (Coumadin - No Dose Today) 1 each 1X WARF ONCE MC Last administered on 06/15/16 16:00; Start 06/15/16 at 16:00; Stop 06/15/16 at 16:01; Status DC Cefazolin Sodium/ Dextrose (Ancef 2gm Premix) 2 gm STK-MED ONCE IV ; Start at 13:00; Stop 06/16/16 at 08:05; Status DC Famotidine (Pepcid) 20 mg BID IVP ; Start 06/16/16 at 21:00; Stop 06/16/16 at 21 :00; Status DC Famotidine (Pepcid) 20 mg BID PO Last administered on 06/18/16 22:48; Start at 13:00 Warfarin Sodium (Coumadin) 5 mg 1X WARF ONCE PO Last administered on 18:15; Start 06/17/16 at 16:00; Stop 06/17/16 at 16:01; Status DC Warfarin Sodium (Coumadin) 7.5 mg 1X WARF ONCE PO Last administered on 16:25; Start 06/18/16 at 16:00; Stop 06/18/16 at 16:01; Status DC Ondansetron HCl (Zofran) 4 mg PRN Q6HRS PRN IV NAUSEA/VOMITING Last administered on 06/19/16 03:08; Start 06/19/16 at 03:00 Morphine Sulfate 2 mg PRN Q2HR PRN IV PAIN Last administered on 06/20/16 08:06 ; Start 06/19/16 at 03:00; Stop 06/20/16 at 10:14; Status DC Warfarin Sodium 7.5 mg 7.5 mg 1X WARF ONCE PO ; Start 06/19/16 at 16:00; Stop 06/19/16 at 16:01; Status DC Amino Acids/ Glycerin/ Electrolytes (Procalamine) 1,000 ml @ 75 mls/hr [id number] IV Last administered on 06/20/16 05:23; Start 06/19/16 at 16:15 Fentanyl Citrate (Fentanyl 2ml Vial) 50 mcg Q6HRS PRN IM BREAKTHROUGH PAIN; Start 06/20/16 at 10:15; Stop 06/20/16 at 11:08; Status DC Fentanyl Citrate (Fentanyl 2ml Vial) 50 mcg PRN Q6HRS PRN IV BREAKTHROUGH PAIN Last administered on 06/20/16t 11:49; Start 06/20/16 at 11:15 Warfarin Sodium (Coumadin) 7.5 mg 1X WARF ONCE PO ; Start 06/20/16 at 16:00; Stop 06/20/16 at 16:01; Status DC Active Scripts Active Reported Coumadin (Warfarin Sodium) 5 Mg Tablet 1 Tab PO DAILY Metoprolol Succinate ( Xl ) (Metoprolol Succinate) 25 Mg Tab.er.24h 25 Mg PO DAILY Vitals/I & O Vital Sign - Last 24 Hours 06/19/16 06/19/16 06/19/16 06/20/16 19:57 20:00 23:25 03:29 Temp 97.5 97.5 97.5 97.5 Pulse 99 57 Resp 16 B/P 110/66 121/65 Pulse Ox 96 98 O2 Delivery Room Air Room Air Room Air Room Air 06/20/16 06/20/16 06/20/16 06/20/16 03:46 07:00 08:06 09:00 Temp 98.4 97.3 98.4 97.3 Pulse 96 86 86 Resp 20 18 14 B/P 110/62 100/68 100/68 Pulse Ox 92 92 97 O2 Delivery Room Air Room Air Room Air 06/20/16 06/20/16 06/20/16 11:00 11:49 12:19 Temp 97.5 97.5 Pulse 85 Resp 16 B/P 104/71 Pulse Ox 94 98 98 O2 Delivery Room Air Room Air Room Air Intake and Output 06/19/16 06/19/16 06/20/16 15:00 23:00 07:00 Intake Total 0 ml Balance 0 ml CONNIE ESTEVEZ MD Jun 20, 2016 16:56
[2016-06-20 19:00] VITALS: BP 119/56
[2016-06-20 23:00] VITALS: BP 118/82
[2016-06-21 03:00] VITALS: BP 115/73
[2016-06-21 05:17] LABS: BASO # 0.1 x10^3/uL (0.0-0.2); BASO % 1 % (0-3); EOS % 1 % (0-3); HEMATOCRIT 41.5 % (39.0-53.0); HEMOGLOBIN 14.2 g/dL (13.0-17.5); LYMPH # 0.9 x10^3/uL (1.0-4.8); LYMPH % 7 % (24-48); MEAN CORPUSCULAR HEMOGLOBIN 30 pg (25-35); MEAN CORPUSCULAR HGB CONC 34 g/dL (31-37); MEAN CORPUSCULAR VOLUME 87 fL (79-100); MONO % 11 % (0-9); NEUT % 81 % (31-73); PLATELET COUNT 249 x10^3/uL (140-400); RED BLOOD COUNT 4.75 x10^6/uL (4.30-5.70); RED CELL DISTRIBUTION WIDTH 13.5 % (11.5-14.5); WHITE BLOOD COUNT 11.9 x10^3/uL (4.0-11.0)
[2016-06-21 05:37] LABS: INR 1.1 (0.8-1.1); PROTHROMBIN TIME PATIENT 13.5 SEC (11.7-14.0)
[2016-06-21 05:39] LABS: CALCIUM 8.7 mg/dL (8.5-10.1); CREATININE 0.8 mg/dL (0.7-1.3); GFR 102.3; POTASSIUM 3.8 mmol/L (3.5-5.1)
[2016-06-21 07:00] VITALS: BP 122/64
[2016-06-21] MEDS: METOPROLOL SUCC 24HR ER 25 MG TAB.ER.24H. PO SCH (09:00)
[2016-06-21] MEDS: FAMOTIDINE 20 MG TABLET. PO SCH ×2 (09:00→20:34)
[2016-06-21] MEDS: AA 3%/ELECTROLYTE-TPN SOLN/GLY 1,000 ML IV SCH ×2 (09:02→20:35)
[2016-06-21 11:00] VITALS: BP 120/69
--- NOTE | 2016-06-21 12:06 | PDOC ---
PROGRESS NOTES Chief Complaint Chief Complaint cc: headaches Bilateral subdural hematoma Confusion and more lethargy, Marfan's syndrome with hx of aortic and mitral valve replacements Left eye blindness HTN stable, Plan s/p [place] hole left, recovering, NS following Coumadin resumed, INR not therapeutic. not able to take due to mental status changes, will order Lovenox If NS agrees. BP well controlled. Fentanyl for pain control, limit narcotics as much as possible, avoid co2 narcosis. NS recommendation pending repeat CT head with out contrast. History of Present Illness History of Present Illness drowsy no fever. per RN, he is looking better at night time, AO times 3. Vitals Vitals Vital Signs Date Time Temp Pulse Resp B/P Pulse Ox O2 Delivery O2 Flow Rate FiO2 06/21/16 11:00 97.6 76 18 120/69 93 Room Air 97.6 Physical Exam General: No acute distress, Other (confused, ) Heart: Regular rate, Normal S1 Lungs: Clear, Other Abdomen: Normal bowel sounds Extremities: No clubbing, No cyanosis, No edema Skin: Other (dressing intact and dry) Labs LABS Laboratory Tests Test 06/21/16 04:35 White Blood Count 11.9x10^3/uL (4.0-11.0) Red Blood Count 4.75x10^6/uL (4.30-5.70) Hemoglobin 14.2g/dL (13.0-17.5) Hematocrit 41.5% (39.0-53.0) Mean Corpuscular Volume 87fL (79-100) Mean Corpuscular Hemoglobin 30pg (25-35) Mean Corpuscular Hemoglobin Concent 34g/dL (31-37) Red Cell Distribution Width 13.5% (11.5-14.5) Platelet Count 249x10^3/uL (140-400) Neutrophils (%) (Auto) 81% (31-73) Lymphocytes (%) (Auto) 7% (24-48) Monocytes (%) (Auto) 11% (0-9) Eosinophils (%) (Auto) 1% (0-3) Basophils (%) (Auto) 1% (0-3) Neutrophils # (Auto) 9.6x10^3uL (1.8-7.7) Lymphocytes # (Auto) 0.9x10^3/uL (1.0-4.8) Monocytes # (Auto) 1.3x10^3/uL (0.0-1.1) Eosinophils # (Auto) 0.1x10^3/uL (0.0-0.7) Basophils # (Auto) 0.1x10^3/uL (0.0-0.2) Prothrombin Time 13.5SEC (11.7-14.0) Prothromb Time International Ratio 1.1 (0.8-1.1) Sodium Level 138mmol/L (136-145) Potassium Level 3.8mmol/L (3.5-5.1) Chloride Level 103mmol/L (98-107) Carbon Dioxide Level 25mmol/L (21-32) Anion Gap 10 (6-14) Blood Urea Nitrogen 19mg/dL (8-26) Creatinine 0.8mg/dL (0.7-1.3) Estimated GFR (Cockcroft-Gault) 102.3 Glucose Level 119mg/dL (70-99) Calcium Level 8.7mg/dL (8.5-10.1) Assessment and Plan Assessmemt and Plan Problems Medical Problems: (1) Subdural hematoma Status: Acute (2) Supratherapeutic INR Status: Acute Problems: Comment Review of Relevant I have reviewed the following items jordy (where applicable) has been applied. Labs Laboratory Tests Test 06/20/16 05:10 06/21/16 04:35 White Blood Count 11.5x10^3/uL (4.0-11.0) 11.9x10^3/uL (4.0-11.0) Red Blood Count 4.69x10^6/uL (4.30-5.70) 4.75x10^6/uL (4.30-5.70) Hemoglobin 13.9g/dL (13.0-17.5) 14.2g/dL (13.0-17.5) Hematocrit 42.1% (39.0-53.0) 41.5% (39.0-53.0) Mean Corpuscular Volume 90fL (79-100) 87fL (79-100) Mean Corpuscular Hemoglobin 30pg (25-35) 30pg (25-35) Mean Corpuscular Hemoglobin Concent 33g/dL (31-37) 34g/dL (31-37) Red Cell Distribution Width 13.1% (11.5-14.5) 13.5% (11.5-14.5) Platelet Count 223x10^3/uL (140-400) 249x10^3/uL (140-400) Neutrophils (%) (Auto) 82% (31-73) 81% (31-73) Lymphocytes (%) (Auto) 6% (24-48) 7% (24-48) Monocytes (%) (Auto) 10% (0-9) 11% (0-9) Eosinophils (%) (Auto) 1% (0-3) 1% (0-3) Basophils (%) (Auto) 1% (0-3) 1% (0-3) Neutrophils # (Auto) 9.4x10^3uL (1.8-7.7) 9.6x10^3uL (1.8-7.7) Lymphocytes # (Auto) 0.7x10^3/uL (1.0-4.8) 0.9x10^3/uL (1.0-4.8) Monocytes # (Auto) 1.1x10^3/uL (0.0-1.1) 1.3x10^3/uL (0.0-1.1) Eosinophils # (Auto) 0.1x10^3/uL (0.0-0.7) 0.1x10^3/uL (0.0-0.7) Basophils # (Auto) 0.1x10^3/uL (0.0-0.2) 0.1x10^3/uL (0.0-0.2) Prothrombin Time 14.4SEC (11.7-14.0) 13.5SEC (11.7-14.0) Prothromb Time International Ratio 1.2 (0.8-1.1) 1.1 (0.8-1.1) Sodium Level 138mmol/L (136-145) 138mmol/L (136-145) Potassium Level 4.1mmol/L (3.5-5.1) 3.8mmol/L (3.5-5.1) Chloride Level 103mmol/L (98-107) 103mmol/L (98-107) Carbon Dioxide Level 26mmol/L (21-32) 25mmol/L (21-32) Anion Gap 9 (6-14) 10 (6-14) Blood Urea Nitrogen 22mg/dL (8-26) 19mg/dL (8-26) Creatinine 0.8mg/dL (0.7-1.3) 0.8mg/dL (0.7-1.3) Estimated GFR (Cockcroft-Gault) 102.3 102.3 Glucose Level 115mg/dL (70-99) 119mg/dL (70-99) Calcium Level 9.1mg/dL (8.5-10.1) 8.7mg/dL (8.5-10.1) Laboratory Tests Test 06/21/16 04:35 White Blood Count 11.9x10^3/uL (4.0-11.0) Red Blood Count 4.75x10^6/uL (4.30-5.70) Hemoglobin 14.2g/dL (13.0-17.5) Hematocrit 41.5% (39.0-53.0) Mean Corpuscular Volume 87fL (79-100) Mean Corpuscular Hemoglobin 30pg (25-35) Mean Corpuscular Hemoglobin Concent 34g/dL (31-37) Red Cell Distribution Width 13.5% (11.5-14.5) Platelet Count 249x10^3/uL (140-400) Neutrophils (%) (Auto) 81% (31-73) Lymphocytes (%) (Auto) 7% (24-48) Monocytes (%) (Auto) 11% (0-9) Eosinophils (%) (Auto) 1% (0-3) Basophils (%) (Auto) 1% (0-3) Neutrophils # (Auto) 9.6x10^3uL (1.8-7.7) Lymphocytes # (Auto) 0.9x10^3/uL (1.0-4.8) Monocytes # (Auto) 1.3x10^3/uL (0.0-1.1) Eosinophils # (Auto) 0.1x10^3/uL (0.0-0.7) Basophils # (Auto) 0.1x10^3/uL (0.0-0.2) Prothrombin Time 13.5SEC (11.7-14.0) Prothromb Time International Ratio 1.1 (0.8-1.1) Sodium Level 138mmol/L (136-145) Potassium Level 3.8mmol/L (3.5-5.1) Chloride Level 103mmol/L (98-107) Carbon Dioxide Level 25mmol/L (21-32) Anion Gap 10 (6-14) Blood Urea Nitrogen 19mg/dL (8-26) Creatinine 0.8mg/dL (0.7-1.3) Estimated GFR (Cockcroft-Gault) 102.3 Glucose Level 119mg/dL (70-99) Calcium Level 8.7mg/dL (8.5-10.1) Microbiology 06/13/16 Urine Culture - Final, Complete 06/13/16 Urine Culture Result 1 (GLENN) - Final, Complete Medications Current Medications Sodium Chloride (Iv Sodium Chloride 0.9% 1000ml Bag) 1,000 ml @ 100 mls/hr 1X ONCE IV Last administered on 06/13/16 13:45; Start 06/13/16 at 13:45; Stop at 23:44; Status DC Phytonadione (Mephyton) 10 mg 1X ONCE PO Last administered on 06/13/16 15:03; Start 06/13/16 at 15:00; Stop 06/13/16 at 15:01; Status DC Ondansetron HCl 4 mg 4 mg PRN Q8HRS PRN IV NAUSEA/VOMITING; Start 06/13/16 at 16 :15; Stop 06/14/16 at 16:14; Status DC Sodium Chloride (Iv Sodium Chloride 0.9% 1000ml Bag) 1,000 ml @ 100 mls/hr Q10H IV Last administered on 06/14/16 05:49; Start 06/13/16 at 16:10; Stop at 13:20; Status DC Morphine Sulfate 2 mg 1X ONCE IV Last administered on 06/13/16 18:08; Start at 18:30; Stop 06/13/16 at 18:31; Status DC Oxycodone/ Acetaminophen (Percocet 5/325) 1 tab PRN Q4HRS PRN PO PAIN Last administered on 06/15/16 23:18; Start 06/13/16 at 18:00 Oxycodone/ Acetaminophen (Percocet 5/325) 2 tab PRN Q4HRS PRN PO PAIN Last administered on 06/17/16 04:50; Start 06/13/16 at 18:00 Metoprolol Succinate (Toprol Xl) 25 mg DAILY PO Last administered on 06/18/16 08:55; Start 06/14/16 at 09:00 Lorazepam 2 mg 2 mg PRN Q4HRS PRN IV ANXIETY / AGITATION; Start 06/13/16 at 19: 45 Levetiracetam 500 mg/Sodium Chloride 105 ml @ 400 mls/hr PRN Q12HRS PRN IV SEIZURES; Start 06/13/16 at 19:45 Potassium Chloride/Sodium Chloride (KCl 20 Meq-0.45% Nacl) 1,000 ml @ 100 mls/ hr Q10H IV Last administered on 06/17/16 03:24; Start 06/14/16 at 13:30; Stop 06/17/16 at 12:24; Status DC Warfarin Sodium (Coumadin Per Pharmacy) 1 each PRN DAILY PRN MC SEE COMMENTS Last administered on 06/20/16 11:36; Start 06/14/16 at 16:00 Warfarin Sodium 2.5 mg 2.5 mg 1X WARF ONCE PO ; Start 06/14/16 at 17:00; Stop at 17:01; Status Cancel Bacitracin/Sodium Chloride (Iv Sodium Chloride 0.9% 1000ml Bag) 1,000 ml @ 1, 000 mls/hr 1X PERIOP ONCE IRR Last administered on 06/15/16 12:41; Start at 10:00; Stop 06/15/16 at 10:59; Status DC Ondansetron HCl (Zofran) 4 mg PRN Q6HRS PRN IV Nausea; Start 06/15/16 at 10:00; Stop 06/16/16 at 09:59; Status DC Fentanyl Citrate (Fentanyl 2ml Vial) 25 mcg PRN Q5MIN PRN IV MILD PAIN; Start 06/15/16 at 10:00; Stop 06/16/16 at 09:59; Status DC Fentanyl Citrate (Fentanyl 2ml Vial) 50 mcg PRN Q5MIN PRN IV MODERATE PAIN; Start 06/15/16 at 10:00; Stop 06/16/16 at 09:59; Status DC Morphine Sulfate 1 mg 1 mg PRN Q10MIN PRN IV SEVERE PAIN; Start 06/15/16 at 10: 00; Stop 06/16/16 at 09:59; Status DC Lactated Ringer's (Iv Lactated Ringers) 1,000 ml @ 30 mls/hr Q24H IV ; Start at 09:47; Stop 06/15/16 at 21:46; Status DC Lidocaine HCl 2 ml 1X PRN PRN ID IV START; Start 06/15/16 at 10:00; Stop at 09:59; Status DC Hydromorphone HCl (Dilaudid) 0.5 mg PRN Q10MIN PRN IV SEV PAIN,Second choice; Start 06/15/16 at 10:00; Stop 06/16/16 at 09:59; Status DC Prochlorperazine Edisylate (Compazine) 5 mg PACU PRN PRN IV NAUSEA; Start at 10:00; Stop 06/16/16 at 09:59; Status DC Phytonadione (Vitamin K) 2 mg 1X ONCE SQ Last administered on 06/15/16t 11:21; Start 06/15/16 at 09:45; Stop 06/15/16 at 09:57; Status DC Dexamethasone Sodium Phosphate (Decadron) 20 mg STK-MED ONCE .ROUTE ; Start 06/15 at 10:26; Stop 06/15/16 at 10:27; Status DC Ondansetron HCl (Zofran) 4 mg STK-MED ONCE .ROUTE ; Start 06/15/16 at 10:26; Stop 06/15/16 at 10:27; Status DC Rocuronium [place] 50 mg 50 mg STK-MED ONCE .ROUTE ; Start 06/15/16 at 10:26; Stop 06/15/16 at 10:27; Status DC Propofol (Diprivan) 20 ml @ As Directed STK-MED ONCE IV ; Start 06/15/16 at 10:26 ; Stop 06/15/16 at 10:27; Status DC Lidocaine HCl 100 mg STK-MED ONCE .ROUTE ; Start 06/15/16 at 10:26; Stop 06/15/16 at 10:27; Status DC Fentanyl Citrate (Fentanyl 2ml Vial) 100 mcg STK-MED ONCE .ROUTE ; Start at 10:26; Stop 06/15/16 at 10:27; Status DC Thrombin 20,000 unit STK-MED ONCE TP Last administered on 06/15/16 12:41; Start 06/15/16 at 10:47; Stop 06/15/16 at 10:48; Status DC Gelatin (Gelfoam Size 100) 1 each STK-MED ONCE .ROUTE Last administered on 06/15 12:41; Start 06/15/16 at 10:48; Stop 06/15/16 at 10:49; Status DC Bupivacaine HCl/ Epinephrine Bitart (Sensorcaine-Epi 0.25%-1:[id number] Mpf) 30 ml STK-MED ONCE .ROUTE Last administered on 06/15/16 12:41; Start 06/15/16 at 10:48 ; Stop 06/15/16 at 10:49; Status DC Cellulose 1 each STK-MED ONCE .ROUTE ; Start 06/15/16 at 10:49; Stop 06/15/16 at 10:50; Status DC Potassium Chloride 20 meq 20 meq 1X ONCE PO Last administered on 06/15/16 11: 21; Start 06/15/16 at 11:15; Stop 06/15/16 at 11:16; Status DC Cefazolin Sodium/ Dextrose (Ancef 2gm Premix) 50 ml @ 100 mls/hr 1X PREOP PRN IV PER PROTOCOL Last administered on 06/15/16 12:56; Start 06/16/16 at 06:00; Stop 06/16/16 at 18:00; Status DC Ephedrine Sulfate 50 mg STK-MED ONCE IV ; Start 06/15/16 at 13:04; Stop 06/15/16 at 13:05; Status DC Glycopyrrolate (Robinul) 1 mg STK-MED ONCE .ROUTE ; Start 06/15/16 at 13:39; Stop 06/15/16 at 13:40; Status DC Neostigmine Methylsulfate 5 mg STK-MED ONCE .ROUTE ; Start 06/15/16 at 13:39; Stop 06/15/16 at 13:40; Status DC Fentanyl Citrate (Fentanyl 2ml Vial) 100 mcg STK-MED ONCE .ROUTE ; Start at 13:55; Stop 06/15/16 at 13:56; Status DC Sevoflurane (Ultane) 30 ml STK-MED ONCE IH ; Start 06/15/16 at 13:55; Stop at 13:56; Status DC Sevoflurane (Ultane) 60 ml STK-MED ONCE IH ; Start 06/15/16 at 13:55; Stop at 13:56; Status DC Warfarin Sodium (Coumadin - No Dose Today) 1 each 1X WARF ONCE MC Last administered on 06/15/16 16:00; Start 06/15/16 at 16:00; Stop 06/15/16 at 16:01; Status DC Cefazolin Sodium/ Dextrose (Ancef 2gm Premix) 2 gm STK-MED ONCE IV ; Start at 13:00; Stop 06/16/16 at 08:05; Status DC Famotidine (Pepcid) 20 mg BID IVP ; Start 06/16/16 at 21:00; Stop 06/16/16 at 21 :00; Status DC Famotidine (Pepcid) 20 mg BID PO Last administered on 06/18/16 22:48; Start at 13:00 Warfarin Sodium (Coumadin) 5 mg 1X WARF ONCE PO Last administered on 18:15; Start 06/17/16 at 16:00; Stop 06/17/16 at 16:01; Status DC Warfarin Sodium (Coumadin) 7.5 mg 1X WARF ONCE PO Last administered on 16:25; Start 06/18/16 at 16:00; Stop 06/18/16 at 16:01; Status DC Ondansetron HCl (Zofran) 4 mg PRN Q6HRS PRN IV NAUSEA/VOMITING Last administered on 06/19/16 03:08; Start 06/19/16 at 03:00 Morphine Sulfate 2 mg PRN Q2HR PRN IV PAIN Last administered on 06/20/16 08:06 ; Start 06/19/16 at 03:00; Stop 06/20/16 at 10:14; Status DC Warfarin Sodium 7.5 mg 7.5 mg 1X WARF ONCE PO ; Start 06/19/16 at 16:00; Stop 06/19/16 at 16:01; Status DC Amino Acids/ Glycerin/ Electrolytes (Procalamine) 1,000 ml @ 75 mls/hr [id number] IV Last administered on 06/21/16 09:02; Start 06/19/16 at 16:15 Fentanyl Citrate (Fentanyl 2ml Vial) 50 mcg Q6HRS PRN IM BREAKTHROUGH PAIN; Start 06/20/16 at 10:15; Stop 06/20/16 at 11:08; Status DC Fentanyl Citrate (Fentanyl 2ml Vial) 50 mcg PRN Q6HRS PRN IV BREAKTHROUGH PAIN Last administered on 06/20/16 11:49; Start 06/20/16 at 11:15 Warfarin Sodium (Coumadin) 7.5 mg 1X WARF ONCE PO ; Start 06/20/16 at 16:00; Stop 06/20/16 at 16:01; Status DC Active Scripts Active Reported Coumadin (Warfarin Sodium) 5 Mg Tablet 1 Tab PO DAILY Metoprolol Succinate ( Xl ) (Metoprolol Succinate) 25 Mg Tab.er.24h 25 Mg PO DAILY Vitals/I & O Vital Sign - Last 24 Hours 06/20/16 06/20/16 06/20/16 06/20/16 12:19 15:00 19:00 20:07 Temp 98.6 97.5 98.6 97.5 Pulse 88 97 Resp 18 B/P 106/72 119/56 Pulse Ox 98 92 93 O2 Delivery Room Air Room Air Room Air Room Air 06/20/16 06/21/16 06/21/16 06/21/16 23:00 03:00 07:00 08:00 Temp 98.0 97.3 97.8 98.0 97.3 97.8 Pulse 104 103 100 Resp 18 18 20 B/P 118/82 115/73 122/64 Pulse Ox 95 90 94 O2 Delivery Room Air Room Air Room Air Room Air 06/21/16 11:00 Temp 97.6 97.6 Pulse 76 Resp 18 B/P 120/69 Pulse Ox 93 O2 Delivery Room Air CHRIS HARDIN MD Jun 21, 2016 12:06
--- NOTE | 2016-06-21 12:50 | PDOC ---
PROGRESS NOTES Subjective Subjective awakens to voice no distress mild headache Objective Objective Vital Signs Date Time Temp Pulse Resp B/P Pulse Ox O2 Delivery O2 Flow Rate FiO2 06/21/16 11:00 97.6 76 18 120/69 93 Room Air 97.6 06/16/16 01:00 2.0 Intake and Output 06/21/16 07:00 # Voids 5 Physical Exam Neuro: Other (opens rigth eye, MIRANDA, able to finger count, follows commands) Skin: Other (incision- dry and navid intact) Assessment Assessment Problems Medical Problems: (1) Subdural hematoma Status: Acute (2) Supratherapeutic INR Status: Acute Plan Plan of Care CT head ordered D/W Dr. Love continue lovenox/ coumadin Comment Review of Relevant I have reviewed the following items jordy (where applicable) has been applied. Labs Laboratory Tests Test 06/20/16 05:10 06/21/16 04:35 White Blood Count 11.5x10^3/uL (4.0-11.0) 11.9x10^3/uL (4.0-11.0) Red Blood Count 4.69x10^6/uL (4.30-5.70) 4.75x10^6/uL (4.30-5.70) Hemoglobin 13.9g/dL (13.0-17.5) 14.2g/dL (13.0-17.5) Hematocrit 42.1% (39.0-53.0) 41.5% (39.0-53.0) Mean Corpuscular Volume 90fL (79-100) 87fL (79-100) Mean Corpuscular Hemoglobin 30pg (25-35) 30pg (25-35) Mean Corpuscular Hemoglobin Concent 33g/dL (31-37) 34g/dL (31-37) Red Cell Distribution Width 13.1% (11.5-14.5) 13.5% (11.5-14.5) Platelet Count 223x10^3/uL (140-400) 249x10^3/uL (140-400) Neutrophils (%) (Auto) 82% (31-73) 81% (31-73) Lymphocytes (%) (Auto) 6% (24-48) 7% (24-48) Monocytes (%) (Auto) 10% (0-9) 11% (0-9) Eosinophils (%) (Auto) 1% (0-3) 1% (0-3) Basophils (%) (Auto) 1% (0-3) 1% (0-3) Neutrophils # (Auto) 9.4x10^3uL (1.8-7.7) 9.6x10^3uL (1.8-7.7) Lymphocytes # (Auto) 0.7x10^3/uL (1.0-4.8) 0.9x10^3/uL (1.0-4.8) Monocytes # (Auto) 1.1x10^3/uL (0.0-1.1) 1.3x10^3/uL (0.0-1.1) Eosinophils # (Auto) 0.1x10^3/uL (0.0-0.7) 0.1x10^3/uL (0.0-0.7) Basophils # (Auto) 0.1x10^3/uL (0.0-0.2) 0.1x10^3/uL (0.0-0.2) Prothrombin Time 14.4SEC (11.7-14.0) 13.5SEC (11.7-14.0) Prothromb Time International Ratio 1.2 (0.8-1.1) 1.1 (0.8-1.1) Sodium Level 138mmol/L (136-145) 138mmol/L (136-145) Potassium Level 4.1mmol/L (3.5-5.1) 3.8mmol/L (3.5-5.1) Chloride Level 103mmol/L (98-107) 103mmol/L (98-107) Carbon Dioxide Level 26mmol/L (21-32) 25mmol/L (21-32) Anion Gap 9 (6-14) 10 (6-14) Blood Urea Nitrogen 22mg/dL (8-26) 19mg/dL (8-26) Creatinine 0.8mg/dL (0.7-1.3) 0.8mg/dL (0.7-1.3) Estimated GFR (Cockcroft-Gault) 102.3 102.3 Glucose Level 115mg/dL (70-99) 119mg/dL (70-99) Calcium Level 9.1mg/dL (8.5-10.1) 8.7mg/dL (8.5-10.1) Laboratory Tests Test 06/21/16 04:35 White Blood Count 11.9x10^3/uL (4.0-11.0) Red Blood Count 4.75x10^6/uL (4.30-5.70) Hemoglobin 14.2g/dL (13.0-17.5) Hematocrit 41.5% (39.0-53.0) Mean Corpuscular Volume 87fL (79-100) Mean Corpuscular Hemoglobin 30pg (25-35) Mean Corpuscular Hemoglobin Concent 34g/dL (31-37) Red Cell Distribution Width 13.5% (11.5-14.5) Platelet Count 249x10^3/uL (140-400) Neutrophils (%) (Auto) 81% (31-73) Lymphocytes (%) (Auto) 7% (24-48) Monocytes (%) (Auto) 11% (0-9) Eosinophils (%) (Auto) 1% (0-3) Basophils (%) (Auto) 1% (0-3) Neutrophils # (Auto) 9.6x10^3uL (1.8-7.7) Lymphocytes # (Auto) 0.9x10^3/uL (1.0-4.8) Monocytes # (Auto) 1.3x10^3/uL (0.0-1.1) Eosinophils # (Auto) 0.1x10^3/uL (0.0-0.7) Basophils # (Auto) 0.1x10^3/uL (0.0-0.2) Prothrombin Time 13.5SEC (11.7-14.0) Prothromb Time International Ratio 1.1 (0.8-1.1) Sodium Level 138mmol/L (136-145) Potassium Level 3.8mmol/L (3.5-5.1) Chloride Level 103mmol/L (98-107) Carbon Dioxide Level 25mmol/L (21-32) Anion Gap 10 (6-14) Blood Urea Nitrogen 19mg/dL (8-26) Creatinine 0.8mg/dL (0.7-1.3) Estimated GFR (Cockcroft-Gault) 102.3 Glucose Level 119mg/dL (70-99) Calcium Level 8.7mg/dL (8.5-10.1) Microbiology 06/13/16 Urine Culture - Final, Complete 06/13/16 Urine Culture Result 1 (GLENN) - Final, Complete Medications Current Medications Sodium Chloride (Iv Sodium Chloride 0.9% 1000ml Bag) 1,000 ml @ 100 mls/hr 1X ONCE IV Last administered on 06/13/16 13:45; Start 06/13/16 at 13:45; Stop at 23:44; Status DC Phytonadione (Mephyton) 10 mg 1X ONCE PO Last administered on 06/13/16 15:03; Start 06/13/16 at 15:00; Stop 06/13/16 at 15:01; Status DC Ondansetron HCl 4 mg 4 mg PRN Q8HRS PRN IV NAUSEA/VOMITING; Start 06/13/16 at 16 :15; Stop 06/14/16 at 16:14; Status DC Sodium Chloride (Iv Sodium Chloride 0.9% 1000ml Bag) 1,000 ml @ 100 mls/hr Q10H IV Last administered on 06/14/16 05:49; Start 06/13/16 at 16:10; Stop at 13:20; Status DC Morphine Sulfate 2 mg 1X ONCE IV Last administered on 06/13/16 18:08; Start at 18:30; Stop 06/13/16 at 18:31; Status DC Oxycodone/ Acetaminophen (Percocet 5/325) 1 tab PRN Q4HRS PRN PO PAIN Last administered on 06/15/16 23:18; Start 06/13/16 at 18:00 Oxycodone/ Acetaminophen (Percocet 5/325) 2 tab PRN Q4HRS PRN PO PAIN Last administered on 06/17/16 04:50; Start 06/13/16 at 18:00 Metoprolol Succinate (Toprol Xl) 25 mg DAILY PO Last administered on 06/18/16 08:55; Start 06/14/16 at 09:00 Lorazepam 2 mg 2 mg PRN Q4HRS PRN IV ANXIETY / AGITATION; Start 06/13/16 at 19: 45 Levetiracetam 500 mg/Sodium Chloride 105 ml @ 400 mls/hr PRN Q12HRS PRN IV SEIZURES; Start 06/13/16 at 19:45 Potassium Chloride/Sodium Chloride (KCl 20 Meq-0.45% Nacl) 1,000 ml @ 100 mls/ hr Q10H IV Last administered on 06/17/16 03:24; Start 06/14/16 at 13:30; Stop 06/17/16 at 12:24; Status DC Warfarin Sodium (Coumadin Per Pharmacy) 1 each PRN DAILY PRN MC SEE COMMENTS Last administered on 06/20/16 11:36; Start 06/14/16 at 16:00 Warfarin Sodium 2.5 mg 2.5 mg 1X WARF ONCE PO ; Start 06/14/16 at 17:00; Stop at 17:01; Status Cancel Bacitracin/Sodium Chloride (Iv Sodium Chloride 0.9% 1000ml Bag) 1,000 ml @ 1, 000 mls/hr 1X PERIOP ONCE IRR Last administered on 06/15/16 12:41; Start at 10:00; Stop 06/15/16 at 10:59; Status DC Ondansetron HCl (Zofran) 4 mg PRN Q6HRS PRN IV Nausea; Start 06/15/16 at 10:00; Stop 06/16/16 at 09:59; Status DC Fentanyl Citrate (Fentanyl 2ml Vial) 25 mcg PRN Q5MIN PRN IV MILD PAIN; Start 06/15/16 at 10:00; Stop 06/16/16 at 09:59; Status DC Fentanyl Citrate (Fentanyl 2ml Vial) 50 mcg PRN Q5MIN PRN IV MODERATE PAIN; Start 06/15/16 at 10:00; Stop 06/16/16 at 09:59; Status DC Morphine Sulfate 1 mg 1 mg PRN Q10MIN PRN IV SEVERE PAIN; Start 06/15/16 at 10: 00; Stop 06/16/16 at 09:59; Status DC Lactated Ringer's (Iv Lactated Ringers) 1,000 ml @ 30 mls/hr Q24H IV ; Start at 09:47; Stop 06/15/16 at 21:46; Status DC Lidocaine HCl 2 ml 1X PRN PRN ID IV START; Start 06/15/16 at 10:00; Stop at 09:59; Status DC Hydromorphone HCl (Dilaudid) 0.5 mg PRN Q10MIN PRN IV SEV PAIN,Second choice; Start 06/15/16 at 10:00; Stop 06/16/16 at 09:59; Status DC Prochlorperazine Edisylate (Compazine) 5 mg PACU PRN PRN IV NAUSEA; Start at 10:00; Stop 06/16/16 at 09:59; Status DC Phytonadione (Vitamin K) 2 mg 1X ONCE SQ Last administered on 06/15/16t 11:21; Start 06/15/16 at 09:45; Stop 06/15/16 at 09:57; Status DC Dexamethasone Sodium Phosphate (Decadron) 20 mg STK-MED ONCE .ROUTE ; Start 06/15 at 10:26; Stop 06/15/16 at 10:27; Status DC Ondansetron HCl (Zofran) 4 mg STK-MED ONCE .ROUTE ; Start 06/15/16 at 10:26; Stop 06/15/16 at 10:27; Status DC Rocuronium [place] 50 mg 50 mg STK-MED ONCE .ROUTE ; Start 06/15/16 at 10:26; Stop 06/15/16 at 10:27; Status DC Propofol (Diprivan) 20 ml @ As Directed STK-MED ONCE IV ; Start 06/15/16 at 10:26 ; Stop 06/15/16 at 10:27; Status DC Lidocaine HCl 100 mg STK-MED ONCE .ROUTE ; Start 06/15/16 at 10:26; Stop 06/15/16 at 10:27; Status DC Fentanyl Citrate (Fentanyl 2ml Vial) 100 mcg STK-MED ONCE .ROUTE ; Start at 10:26; Stop 06/15/16 at 10:27; Status DC Thrombin 20,000 unit STK-MED ONCE TP Last administered on 06/15/16t 12:41; Start 06/15/16 at 10:47; Stop 06/15/16 at 10:48; Status DC Gelatin (Gelfoam Size 100) 1 each STK-MED ONCE .ROUTE Last administered on 06/15 12:41; Start 06/15/16 at 10:48; Stop 06/15/16 at 10:49; Status DC Bupivacaine HCl/ Epinephrine Bitart (Sensorcaine-Epi 0.25%-1:859008 Mpf) 30 ml STK-MED ONCE .ROUTE Last administered on 06/15/16 12:41; Start 06/15/16 at 10:48 ; Stop 06/15/16 at 10:49; Status DC Cellulose 1 each STK-MED ONCE .ROUTE ; Start 06/15/16 at 10:49; Stop 06/15/16 at 10:50; Status DC Potassium Chloride 20 meq 20 meq 1X ONCE PO Last administered on 06/15/16 11: 21; Start 06/15/16 at 11:15; Stop 06/15/16 at 11:16; Status DC Cefazolin Sodium/ Dextrose (Ancef 2gm Premix) 50 ml @ 100 mls/hr 1X PREOP PRN IV PER PROTOCOL Last administered on 06/15/16 12:56; Start 06/16/16 at 06:00; Stop 06/16/16 at 18:00; Status DC Ephedrine Sulfate 50 mg STK-MED ONCE IV ; Start 06/15/16 at 13:04; Stop 06/15/16 at 13:05; Status DC Glycopyrrolate (Robinul) 1 mg STK-MED ONCE .ROUTE ; Start 06/15/16 at 13:39; Stop 06/15/16 at 13:40; Status DC Neostigmine Methylsulfate 5 mg STK-MED ONCE .ROUTE ; Start 06/15/16 at 13:39; Stop 06/15/16 at 13:40; Status DC Fentanyl Citrate (Fentanyl 2ml Vial) 100 mcg STK-MED ONCE .ROUTE ; Start at 13:55; Stop 06/15/16 at 13:56; Status DC Sevoflurane (Ultane) 30 ml STK-MED ONCE IH ; Start 06/15/16 at 13:55; Stop at 13:56; Status DC Sevoflurane (Ultane) 60 ml STK-MED ONCE IH ; Start 06/15/16 at 13:55; Stop at 13:56; Status DC Warfarin Sodium (Coumadin - No Dose Today) 1 each 1X WARF ONCE MC Last administered on 06/15/16 16:00; Start 06/15/16 at 16:00; Stop 06/15/16 at 16:01; Status DC Cefazolin Sodium/ Dextrose (Ancef 2gm Premix) 2 gm STK-MED ONCE IV ; Start at 13:00; Stop 06/16/16 at 08:05; Status DC Famotidine (Pepcid) 20 mg BID IVP ; Start 06/16/16 at 21:00; Stop 06/16/16 at 21 :00; Status DC Famotidine (Pepcid) 20 mg BID PO Last administered on 06/18/16 22:48; Start at 13:00 Warfarin Sodium (Coumadin) 5 mg 1X WARF ONCE PO Last administered on 18:15; Start 06/17/16 at 16:00; Stop 06/17/16 at 16:01; Status DC Warfarin Sodium (Coumadin) 7.5 mg 1X WARF ONCE PO Last administered on 16:25; Start 06/18/16 at 16:00; Stop 06/18/16 at 16:01; Status DC Ondansetron HCl (Zofran) 4 mg PRN Q6HRS PRN IV NAUSEA/VOMITING Last administered on 06/19/16 03:08; Start 06/19/16 at 03:00 Morphine Sulfate 2 mg PRN Q2HR PRN IV PAIN Last administered on 06/20/16 08:06 ; Start 06/19/16 at 03:00; Stop 06/20/16 at 10:14; Status DC Warfarin Sodium 7.5 mg 7.5 mg 1X WARF ONCE PO ; Start 06/19/16 at 16:00; Stop 06/19/16 at 16:01; Status DC Amino Acids/ Glycerin/ Electrolytes (Procalamine) 1,000 ml @ 75 mls/hr [id number] IV Last administered on 06/21/16 09:02; Start 06/19/16 at 16:15 Fentanyl Citrate (Fentanyl 2ml Vial) 50 mcg Q6HRS PRN IM BREAKTHROUGH PAIN; Start 06/20/16 at 10:15; Stop 06/20/16 at 11:08; Status DC Fentanyl Citrate (Fentanyl 2ml Vial) 50 mcg PRN Q6HRS PRN IV BREAKTHROUGH PAIN Last administered on 06/20/16t 11:49; Start 06/20/16 at 11:15 Warfarin Sodium (Coumadin) 7.5 mg 1X WARF ONCE PO ; Start 06/20/16 at 16:00; Stop 06/20/16 at 16:01; Status DC Enoxaparin Sodium (Lovenox Per Pharmacy Treatment Dosing) 1 each PRN DAILY PRN MC SEE COMMENTS; Start 06/21/16 at 12:30; Stop 06/22/16 at 12:29 Enoxaparin Sodium (Lovenox 60mg Syringe) 60 mg Q12HR SQ ; Start 06/21/16 at 13: 00 Active Scripts Active Reported Coumadin (Warfarin Sodium) 5 Mg Tablet 1 Tab PO DAILY Metoprolol Succinate ( Xl ) (Metoprolol Succinate) 25 Mg Tab.er.24h 25 Mg PO DAILY Vitals/I & O Vital Sign - Last 24 Hours 06/20/16 06/20/16 06/20/16 06/20/16 15:00 19:00 20:07 23:00 Temp 98.6 97.5 98.0 98.6 97.5 98.0 Pulse 88 97 104 Resp B/P 106/72 119/56 118/82 Pulse Ox 92 93 95 O2 Delivery Room Air Room Air Room Air Room Air 06/21/16 06/21/16 06/21/16 06/21/16 03:00 07:00 08:00 11:00 Temp 97.3 97.8 97.6 97.3 97.8 97.6 Pulse 103 100 76 Resp B/P 115/73 122/64 120/69 Pulse Ox 90 94 93 O2 Delivery Room Air Room Air Room Air Room Air CONNIE ESTEVEZ MD Jun 21, 2016 12:50
--- NOTE | 2016-06-21 13:51 | RAD ---
CT head without contrast History: Follow-up subdural hemorrhage. Comparison: CT head June 19, 2016. Procedure: Axial images are obtained of the head from the skull base through the vertex without IV contrast. One or more of the following individualized dose reduction techniques were utilized for the study: Automated exposure control Adjustment of mA and/or kV according to patient's size Use of iterative reconstruction technique. Findings: Left frontal nela hole is again seen. There is interval resolution of previously identified pneumocephalus. The amount of bilateral subdural hemorrhage appears of fairly similar to previous study. The hemorrhage has heterogeneous attenuation with areas of increased density and areas of more intermediate density. The third and fourth ventricles again appear small, but similar to previous study. Suprasellar and quadrigeminal plate cisterns are again almost completely effaced. No convincing new hemorrhage is seen. No significant midline shift is appreciated. No obvious acute ischemic infarction is seen. No intracranial mass is identified. Impression: No significant interval change in amount of subdural hemorrhage.
--- NOTE | 2016-06-21 14:27 | PDOC ---
PROGRESS NOTES Assessment Problems Medical Problems: (1) Subdural hematoma Status: Acute (2) Supratherapeutic INR Status: Acute Bilateral SDH, Status post nela hole on left Headache Metabolic encephalopathy. Confusion Marfan's syndrome. Left eye vision loss. Dysphagia, on nothing by mouth status Plan Continue fentanyl prn Keppra if seizures. Warfarin on hold, getting Lovenox BP control. Subjective denies headache Objective Vital Signs Date Time Temp Pulse Resp B/P Pulse Ox O2 Delivery O2 Flow Rate FiO2 06/21/16 11:00 97.6 76 18 120/69 93 Room Air 97.6 PHYSICAL EXAM Drowsy, does follow commands, knows that he is in the hospital, does not know the date No hiccups Left cornea is scarred, right pupil reacts EOMI. CN: no focal findings. Muscle tone: normal. Muscle strength: 5-/5 DTR: 2+ Plantar reflex: flexor Gait: not examined in bed. Sensory exam: no abnormal findings. No cerebellar signs Review of Relevant I have reviewed the following items jordy (where applicable) has been applied. Labs Laboratory Tests Test 06/20/16 05:10 06/21/16 04:35 White Blood Count 11.5x10^3/uL (4.0-11.0) 11.9x10^3/uL (4.0-11.0) Red Blood Count 4.69x10^6/uL (4.30-5.70) 4.75x10^6/uL (4.30-5.70) Hemoglobin 13.9g/dL (13.0-17.5) 14.2g/dL (13.0-17.5) Hematocrit 42.1% (39.0-53.0) 41.5% (39.0-53.0) Mean Corpuscular Volume 90fL (79-100) 87fL (79-100) Mean Corpuscular Hemoglobin 30pg (25-35) 30pg (25-35) Mean Corpuscular Hemoglobin Concent 33g/dL (31-37) 34g/dL (31-37) Red Cell Distribution Width 13.1% (11.5-14.5) 13.5% (11.5-14.5) Platelet Count 223x10^3/uL (140-400) 249x10^3/uL (140-400) Neutrophils (%) (Auto) 82% (31-73) 81% (31-73) Lymphocytes (%) (Auto) 6% (24-48) 7% (24-48) Monocytes (%) (Auto) 10% (0-9) 11% (0-9) Eosinophils (%) (Auto) 1% (0-3) 1% (0-3) Basophils (%) (Auto) 1% (0-3) 1% (0-3) Neutrophils # (Auto) 9.4x10^3uL (1.8-7.7) 9.6x10^3uL (1.8-7.7) Lymphocytes # (Auto) 0.7x10^3/uL (1.0-4.8) 0.9x10^3/uL (1.0-4.8) Monocytes # (Auto) 1.1x10^3/uL (0.0-1.1) 1.3x10^3/uL (0.0-1.1) Eosinophils # (Auto) 0.1x10^3/uL (0.0-0.7) 0.1x10^3/uL (0.0-0.7) Basophils # (Auto) 0.1x10^3/uL (0.0-0.2) 0.1x10^3/uL (0.0-0.2) Prothrombin Time 14.4SEC (11.7-14.0) 13.5SEC (11.7-14.0) Prothromb Time International Ratio 1.2 (0.8-1.1) 1.1 (0.8-1.1) Sodium Level 138mmol/L (136-145) 138mmol/L (136-145) Potassium Level 4.1mmol/L (3.5-5.1) 3.8mmol/L (3.5-5.1) Chloride Level 103mmol/L (98-107) 103mmol/L (98-107) Carbon Dioxide Level 26mmol/L (21-32) 25mmol/L (21-32) Anion Gap 9 (6-14) 10 (6-14) Blood Urea Nitrogen 22mg/dL (8-26) 19mg/dL (8-26) Creatinine 0.8mg/dL (0.7-1.3) 0.8mg/dL (0.7-1.3) Estimated GFR (Cockcroft-Gault) 102.3 102.3 Glucose Level 115mg/dL (70-99) 119mg/dL (70-99) Calcium Level 9.1mg/dL (8.5-10.1) 8.7mg/dL (8.5-10.1) Laboratory Tests Test 06/21/16 04:35 White Blood Count 11.9x10^3/uL (4.0-11.0) Red Blood Count 4.75x10^6/uL (4.30-5.70) Hemoglobin 14.2g/dL (13.0-17.5) Hematocrit 41.5% (39.0-53.0) Mean Corpuscular Volume 87fL (79-100) Mean Corpuscular Hemoglobin 30pg (25-35) Mean Corpuscular Hemoglobin Concent 34g/dL (31-37) Red Cell Distribution Width 13.5% (11.5-14.5) Platelet Count 249x10^3/uL (140-400) Neutrophils (%) (Auto) 81% (31-73) Lymphocytes (%) (Auto) 7% (24-48) Monocytes (%) (Auto) 11% (0-9) Eosinophils (%) (Auto) 1% (0-3) Basophils (%) (Auto) 1% (0-3) Neutrophils # (Auto) 9.6x10^3uL (1.8-7.7) Lymphocytes # (Auto) 0.9x10^3/uL (1.0-4.8) Monocytes # (Auto) 1.3x10^3/uL (0.0-1.1) Eosinophils # (Auto) 0.1x10^3/uL (0.0-0.7) Basophils # (Auto) 0.1x10^3/uL (0.0-0.2) Prothrombin Time 13.5SEC (11.7-14.0) Prothromb Time International Ratio 1.1 (0.8-1.1) Sodium Level 138mmol/L (136-145) Potassium Level 3.8mmol/L (3.5-5.1) Chloride Level 103mmol/L (98-107) Carbon Dioxide Level 25mmol/L (21-32) Anion Gap 10 (6-14) Blood Urea Nitrogen 19mg/dL (8-26) Creatinine 0.8mg/dL (0.7-1.3) Estimated GFR (Cockcroft-Gault) 102.3 Glucose Level 119mg/dL (70-99) Calcium Level 8.7mg/dL (8.5-10.1) Microbiology 06/13/16 Urine Culture - Final, Complete 06/13/16 Urine Culture Result 1 (GLENN) - Final, Complete Medications Current Medications Sodium Chloride (Iv Sodium Chloride 0.9% 1000ml Bag) 1,000 ml @ 100 mls/hr 1X ONCE IV Last administered on 06/13/16 13:45; Start 06/13/16 at 13:45; Stop at 23:44; Status DC Phytonadione (Mephyton) 10 mg 1X ONCE PO Last administered on 06/13/16 15:03; Start 06/13/16 at 15:00; Stop 06/13/16 at 15:01; Status DC Ondansetron HCl 4 mg 4 mg PRN Q8HRS PRN IV NAUSEA/VOMITING; Start 06/13/16 at 16 :15; Stop 06/14/16 at 16:14; Status DC Sodium Chloride (Iv Sodium Chloride 0.9% 1000ml Bag) 1,000 ml @ 100 mls/hr Q10H IV Last administered on 06/14/16 05:49; Start 06/13/16 at 16:10; Stop at 13:20; Status DC Morphine Sulfate 2 mg 1X ONCE IV Last administered on 06/13/16 18:08; Start at 18:30; Stop 06/13/16 at 18:31; Status DC Oxycodone/ Acetaminophen (Percocet 5/325) 1 tab PRN Q4HRS PRN PO PAIN Last administered on 06/15/16 23:18; Start 06/13/16 at 18:00 Oxycodone/ Acetaminophen (Percocet 5/325) 2 tab PRN Q4HRS PRN PO PAIN Last administered on 06/17/16 04:50; Start 06/13/16 at 18:00 Metoprolol Succinate (Toprol Xl) 25 mg DAILY PO Last administered on 06/18/16 08:55; Start 06/14/16 at 09:00 Lorazepam 2 mg 2 mg PRN Q4HRS PRN IV ANXIETY / AGITATION; Start 06/13/16 at 19: 45 Levetiracetam 500 mg/Sodium Chloride 105 ml @ 400 mls/hr PRN Q12HRS PRN IV SEIZURES; Start 06/13/16 at 19:45 Potassium Chloride/Sodium Chloride (KCl 20 Meq-0.45% Nacl) 1,000 ml @ 100 mls/ hr Q10H IV Last administered on 06/17/16 03:24; Start 06/14/16 at 13:30; Stop 06/17/16 at 12:24; Status DC Warfarin Sodium (Coumadin Per Pharmacy) 1 each PRN DAILY PRN MC SEE COMMENTS Last administered on 06/20/16 11:36; Start 06/14/16 at 16:00 Warfarin Sodium 2.5 mg 2.5 mg 1X WARF ONCE PO ; Start 06/14/16 at 17:00; Stop at 17:01; Status Cancel Bacitracin/Sodium Chloride (Iv Sodium Chloride 0.9% 1000ml Bag) 1,000 ml @ 1, 000 mls/hr 1X PERIOP ONCE IRR Last administered on 06/15/16 12:41; Start at 10:00; Stop 06/15/16 at 10:59; Status DC Ondansetron HCl (Zofran) 4 mg PRN Q6HRS PRN IV Nausea; Start 06/15/16 at 10:00; Stop 06/16/16 at 09:59; Status DC Fentanyl Citrate (Fentanyl 2ml Vial) 25 mcg PRN Q5MIN PRN IV MILD PAIN; Start 06/15/16 at 10:00; Stop 06/16/16 at 09:59; Status DC Fentanyl Citrate (Fentanyl 2ml Vial) 50 mcg PRN Q5MIN PRN IV MODERATE PAIN; Start 06/15/16 at 10:00; Stop 06/16/16 at 09:59; Status DC Morphine Sulfate 1 mg 1 mg PRN Q10MIN PRN IV SEVERE PAIN; Start 06/15/16 at 10: 00; Stop 06/16/16 at 09:59; Status DC Lactated Ringer's (Iv Lactated Ringers) 1,000 ml @ 30 mls/hr Q24H IV ; Start at 09:47; Stop 06/15/16 at 21:46; Status DC Lidocaine HCl 2 ml 1X PRN PRN ID IV START; Start 06/15/16 at 10:00; Stop at 09:59; Status DC Hydromorphone HCl (Dilaudid) 0.5 mg PRN Q10MIN PRN IV SEV PAIN,Second choice; Start 06/15/16 at 10:00; Stop 06/16/16 at 09:59; Status DC Prochlorperazine Edisylate (Compazine) 5 mg PACU PRN PRN IV NAUSEA; Start at 10:00; Stop 06/16/16 at 09:59; Status DC Phytonadione (Vitamin K) 2 mg 1X ONCE SQ Last administered on 06/15/16t 11:21; Start 06/15/16 at 09:45; Stop 06/15/16 at 09:57; Status DC Dexamethasone Sodium Phosphate (Decadron) 20 mg STK-MED ONCE .ROUTE ; Start 06/15 at 10:26; Stop 06/15/16 at 10:27; Status DC Ondansetron HCl (Zofran) 4 mg STK-MED ONCE .ROUTE ; Start 06/15/16 at 10:26; Stop 06/15/16 at 10:27; Status DC Rocuronium [place] 50 mg 50 mg STK-MED ONCE .ROUTE ; Start 06/15/16 at 10:26; Stop 06/15/16 at 10:27; Status DC Propofol (Diprivan) 20 ml @ As Directed STK-MED ONCE IV ; Start 06/15/16 at 10:26 ; Stop 06/15/16 at 10:27; Status DC Lidocaine HCl 100 mg STK-MED ONCE .ROUTE ; Start 06/15/16 at 10:26; Stop 06/15/16 at 10:27; Status DC Fentanyl Citrate (Fentanyl 2ml Vial) 100 mcg STK-MED ONCE .ROUTE ; Start at 10:26; Stop 06/15/16 at 10:27; Status DC Thrombin 20,000 unit STK-MED ONCE TP Last administered on 06/15/16 12:41; Start 06/15/16 at 10:47; Stop 06/15/16 at 10:48; Status DC Gelatin (Gelfoam Size 100) 1 each STK-MED ONCE .ROUTE Last administered on 06/15 12:41; Start 06/15/16 at 10:48; Stop 06/15/16 at 10:49; Status DC Bupivacaine HCl/ Epinephrine Bitart (Sensorcaine-Epi 0.25%-1:974395 Mpf) 30 ml STK-MED ONCE .ROUTE Last administered on 06/15/16 12:41; Start 06/15/16 at 10:48 ; Stop 06/15/16 at 10:49; Status DC Cellulose 1 each STK-MED ONCE .ROUTE ; Start 06/15/16 at 10:49; Stop 06/15/16 at 10:50; Status DC Potassium Chloride 20 meq 20 meq 1X ONCE PO Last administered on 06/15/16 11: 21; Start 06/15/16 at 11:15; Stop 06/15/16 at 11:16; Status DC Cefazolin Sodium/ Dextrose (Ancef 2gm Premix) 50 ml @ 100 mls/hr 1X PREOP PRN IV PER PROTOCOL Last administered on 06/15/16 12:56; Start 06/16/16 at 06:00; Stop 06/16/16 at 18:00; Status DC Ephedrine Sulfate 50 mg STK-MED ONCE IV ; Start 06/15/16 at 13:04; Stop 06/15/16 at 13:05; Status DC Glycopyrrolate (Robinul) 1 mg STK-MED ONCE .ROUTE ; Start 06/15/16 at 13:39; Stop 06/15/16 at 13:40; Status DC Neostigmine Methylsulfate 5 mg STK-MED ONCE .ROUTE ; Start 06/15/16 at 13:39; Stop 06/15/16 at 13:40; Status DC Fentanyl Citrate (Fentanyl 2ml Vial) 100 mcg STK-MED ONCE .ROUTE ; Start at 13:55; Stop 06/15/16 at 13:56; Status DC Sevoflurane (Ultane) 30 ml STK-MED ONCE IH ; Start 06/15/16 at 13:55; Stop at 13:56; Status DC Sevoflurane (Ultane) 60 ml STK-MED ONCE IH ; Start 06/15/16 at 13:55; Stop at 13:56; Status DC Warfarin Sodium (Coumadin - No Dose Today) 1 each 1X WARF ONCE MC Last administered on 06/15/16 16:00; Start 06/15/16 at 16:00; Stop 06/15/16 at 16:01; Status DC Cefazolin Sodium/ Dextrose (Ancef 2gm Premix) 2 gm STK-MED ONCE IV ; Start at 13:00; Stop 06/16/16 at 08:05; Status DC Famotidine (Pepcid) 20 mg BID IVP ; Start 06/16/16 at 21:00; Stop 06/16/16 at 21 :00; Status DC Famotidine (Pepcid) 20 mg BID PO Last administered on 06/18/16 22:48; Start at 13:00 Warfarin Sodium (Coumadin) 5 mg 1X WARF ONCE PO Last administered on 18:15; Start 06/17/16 at 16:00; Stop 06/17/16 at 16:01; Status DC Warfarin Sodium (Coumadin) 7.5 mg 1X WARF ONCE PO Last administered on 16:25; Start 06/18/16 at 16:00; Stop 06/18/16 at 16:01; Status DC Ondansetron HCl (Zofran) 4 mg PRN Q6HRS PRN IV NAUSEA/VOMITING Last administered on 06/19/16 03:08; Start 06/19/16 at 03:00 Morphine Sulfate 2 mg PRN Q2HR PRN IV PAIN Last administered on 06/20/16 08:06 ; Start 06/19/16 at 03:00; Stop 06/20/16 at 10:14; Status DC Warfarin Sodium 7.5 mg 7.5 mg 1X WARF ONCE PO ; Start 06/19/16 at 16:00; Stop 06/19/16 at 16:01; Status DC Amino Acids/ Glycerin/ Electrolytes (Procalamine) 1,000 ml @ 75 mls/hr [id number] IV Last administered on 06/21/16 09:02; Start 06/19/16 at 16:15 Fentanyl Citrate (Fentanyl 2ml Vial) 50 mcg Q6HRS PRN IM BREAKTHROUGH PAIN; Start 06/20/16 at 10:15; Stop 06/20/16 at 11:08; Status DC Fentanyl Citrate (Fentanyl 2ml Vial) 50 mcg PRN Q6HRS PRN IV BREAKTHROUGH PAIN Last administered on 06/20/16t 11:49; Start 06/20/16 at 11:15 Warfarin Sodium (Coumadin) 7.5 mg 1X WARF ONCE PO ; Start 06/20/16 at 16:00; Stop 06/20/16 at 16:01; Status DC Enoxaparin Sodium (Lovenox Per Pharmacy Treatment Dosing) 1 each PRN DAILY PRN MC SEE COMMENTS; Start 06/21/16 at 12:30; Stop 06/22/16 at 12:29 Enoxaparin Sodium (Lovenox 60mg Syringe) 60 mg Q12HR SQ ; Start 06/21/16 at 13: 00 Active Scripts Active Reported Coumadin (Warfarin Sodium) 5 Mg Tablet 1 Tab PO DAILY Metoprolol Succinate ( Xl ) (Metoprolol Succinate) 25 Mg Tab.er.24h 25 Mg PO DAILY Vitals/I & O Vital Sign - Last 24 Hours 06/20/16 06/20/16 06/20/16 06/20/16 15:00 19:00 20:07 23:00 Temp 98.6 97.5 98.0 98.6 97.5 98.0 Pulse 88 97 104 Resp 18 B/P 106/72 119/56 118/82 Pulse Ox 92 93 95 O2 Delivery Room Air Room Air Room Air Room Air 06/21/16 06/21/16 06/21/16 06/21/16 03:00 07:00 08:00 11:00 Temp 97.3 97.8 97.6 97.3 97.8 97.6 Pulse 103 100 76 Resp 18 B/P 115/73 122/64 120/69 Pulse Ox 90 94 93 O2 Delivery Room Air Room Air Room Air Room Air Images CT head today, no change EDWARD AMBROSE MD Jun 21, 2016 14:27
[2016-06-21] MEDS: ENOXAPARIN ** NOTE DOSE ** SYRINGE SQ SCH ×2 (14:53→17:55)
[2016-06-21 15:00] VITALS: BP 111/63
[2016-06-21 19:00] VITALS: BP 94/66
[2016-06-21] MEDS: OXYCODONE/APAP 5/325 TABLET. PO PRN (20:34)
[2016-06-21 23:00] VITALS: BP 96/63
[2016-06-22] VITALS (13 sets, daily range): BP systolic 87–119; BP diastolic 56–68
[2016-06-22] MEDS: OXYCODONE/APAP 5/325 TABLET. PO PRN ×3 (02:02→19:15)
--- NOTE | 2016-06-22 08:17 | PDOC ---
PROGRESS NOTES Assessment Problems Medical Problems: (1) Subdural hematoma Status: Acute (2) Supratherapeutic INR Status: Acute Bilateral SDH, Status post nela hole on left, unchanged on yesterday's head CT Headache Metabolic encephalopathy, much brighter today. Marfan's syndrome. Left eye vision loss. Dysphagia, on nothing by mouth status Plan Continue fentanyl prn Keppra if seizures. Warfarin on hold, getting Lovenox BP control. Subjective no complaints Objective Vital Signs Date Time Temp Pulse Resp B/P Pulse Ox O2 Delivery O2 Flow Rate FiO2 06/22/16 07:10 20 96 Room Air 06/22/16 03:00 97.6 86 104/63 97.6 06/21/16 20:34 2.0 Intake and Output 06/22/16 07:00 Intake Total 120 ml Balance 120 ml Intake Oral 120 ml # Voids 4 PHYSICAL EXAM Alert, follows commands, knows that he is in the hospital, does not know the date No hiccups Left cornea is scarred, right pupil reacts EOMI. CN: no focal findings. Muscle tone: normal. Muscle strength: 5-/5 DTR: 2+ Plantar reflex: flexor Gait: not examined in bed. Sensory exam: no abnormal findings. No cerebellar signs Review of Relevant I have reviewed the following items jordy (where applicable) has been applied. Labs Laboratory Tests Test 06/21/16 04:35 White Blood Count 11.9x10^3/uL (4.0-11.0) Red Blood Count 4.75x10^6/uL (4.30-5.70) Hemoglobin 14.2g/dL (13.0-17.5) Hematocrit 41.5% (39.0-53.0) Mean Corpuscular Volume 87fL (79-100) Mean Corpuscular Hemoglobin 30pg (25-35) Mean Corpuscular Hemoglobin Concent 34g/dL (31-37) Red Cell Distribution Width 13.5% (11.5-14.5) Platelet Count 249x10^3/uL (140-400) Neutrophils (%) (Auto) 81% (31-73) Lymphocytes (%) (Auto) 7% (24-48) Monocytes (%) (Auto) 11% (0-9) Eosinophils (%) (Auto) 1% (0-3) Basophils (%) (Auto) 1% (0-3) Neutrophils # (Auto) 9.6x10^3uL (1.8-7.7) Lymphocytes # (Auto) 0.9x10^3/uL (1.0-4.8) Monocytes # (Auto) 1.3x10^3/uL (0.0-1.1) Eosinophils # (Auto) 0.1x10^3/uL (0.0-0.7) Basophils # (Auto) 0.1x10^3/uL (0.0-0.2) Prothrombin Time 13.5SEC (11.7-14.0) Prothromb Time International Ratio 1.1 (0.8-1.1) Sodium Level 138mmol/L (136-145) Potassium Level 3.8mmol/L (3.5-5.1) Chloride Level 103mmol/L (98-107) Carbon Dioxide Level 25mmol/L (21-32) Anion Gap 10 (6-14) Blood Urea Nitrogen 19mg/dL (8-26) Creatinine 0.8mg/dL (0.7-1.3) Estimated GFR (Cockcroft-Gault) 102.3 Glucose Level 119mg/dL (70-99) Calcium Level 8.7mg/dL (8.5-10.1) Microbiology 06/13/16 Urine Culture - Final, Complete 06/13/16 Urine Culture Result 1 (GLENN) - Final, Complete Medications Current Medications Sodium Chloride (Iv Sodium Chloride 0.9% 1000ml Bag) 1,000 ml @ 100 mls/hr 1X ONCE IV Last administered on 06/13/16 13:45; Start 06/13/16 at 13:45; Stop at 23:44; Status DC Phytonadione (Mephyton) 10 mg 1X ONCE PO Last administered on 06/13/16 15:03; Start 06/13/16 at 15:00; Stop 06/13/16 at 15:01; Status DC Ondansetron HCl 4 mg 4 mg PRN Q8HRS PRN IV NAUSEA/VOMITING; Start 06/13/16 at 16 :15; Stop 06/14/16 at 16:14; Status DC Sodium Chloride (Iv Sodium Chloride 0.9% 1000ml Bag) 1,000 ml @ 100 mls/hr Q10H IV Last administered on 06/14/16 05:49; Start 06/13/16 at 16:10; Stop at 13:20; Status DC Morphine Sulfate 2 mg 1X ONCE IV Last administered on 06/13/16 18:08; Start at 18:30; Stop 06/13/16 at 18:31; Status DC Oxycodone/ Acetaminophen (Percocet 5/325) 1 tab PRN Q4HRS PRN PO PAIN Last administered on 06/15/16 23:18; Start 06/13/16 at 18:00 Oxycodone/ Acetaminophen (Percocet 5/325) 2 tab PRN Q4HRS PRN PO PAIN Last administered on 06/22/16 06:10; Start 06/13/16 at 18:00 Metoprolol Succinate (Toprol Xl) 25 mg DAILY PO Last administered on 06/18/16 08:55; Start 06/14/16 at 09:00 Lorazepam 2 mg 2 mg PRN Q4HRS PRN IV ANXIETY / AGITATION; Start 06/13/16 at 19: 45 Levetiracetam 500 mg/Sodium Chloride 105 ml @ 400 mls/hr PRN Q12HRS PRN IV SEIZURES; Start 06/13/16 at 19:45 Potassium Chloride/Sodium Chloride (KCl 20 Meq-0.45% Nacl) 1,000 ml @ 100 mls/ hr Q10H IV Last administered on 06/17/16 03:24; Start 06/14/16 at 13:30; Stop 06/17/16 at 12:24; Status DC Warfarin Sodium (Coumadin Per Pharmacy) 1 each PRN DAILY PRN MC SEE COMMENTS Last administered on 06/20/16 11:36; Start 06/14/16 at 16:00 Warfarin Sodium 2.5 mg 2.5 mg 1X WARF ONCE PO ; Start 06/14/16 at 17:00; Stop at 17:01; Status Cancel Bacitracin/Sodium Chloride (Iv Sodium Chloride 0.9% 1000ml Bag) 1,000 ml @ 1, 000 mls/hr 1X PERIOP ONCE IRR Last administered on 06/15/16 12:41; Start at 10:00; Stop 06/15/16 at 10:59; Status DC Ondansetron HCl (Zofran) 4 mg PRN Q6HRS PRN IV Nausea; Start 06/15/16 at 10:00; Stop 06/16/16 at 09:59; Status DC Fentanyl Citrate (Fentanyl 2ml Vial) 25 mcg PRN Q5MIN PRN IV MILD PAIN; Start 06/15/16 at 10:00; Stop 06/16/16 at 09:59; Status DC Fentanyl Citrate (Fentanyl 2ml Vial) 50 mcg PRN Q5MIN PRN IV MODERATE PAIN; Start 06/15/16 at 10:00; Stop 06/16/16 at 09:59; Status DC Morphine Sulfate 1 mg 1 mg PRN Q10MIN PRN IV SEVERE PAIN; Start 06/15/16 at 10: 00; Stop 06/16/16 at 09:59; Status DC Lactated Ringer's (Iv Lactated Ringers) 1,000 ml @ 30 mls/hr Q24H IV ; Start at 09:47; Stop 06/15/16 at 21:46; Status DC Lidocaine HCl 2 ml 1X PRN PRN ID IV START; Start 06/15/16 at 10:00; Stop at 09:59; Status DC Hydromorphone HCl (Dilaudid) 0.5 mg PRN Q10MIN PRN IV SEV PAIN,Second choice; Start 06/15/16 at 10:00; Stop 06/16/16 at 09:59; Status DC Prochlorperazine Edisylate (Compazine) 5 mg PACU PRN PRN IV NAUSEA; Start at 10:00; Stop 06/16/16 at 09:59; Status DC Phytonadione (Vitamin K) 2 mg 1X ONCE SQ Last administered on 06/15/16t 11:21; Start 06/15/16 at 09:45; Stop 06/15/16 at 09:57; Status DC Dexamethasone Sodium Phosphate (Decadron) 20 mg STK-MED ONCE .ROUTE ; Start 06/15 at 10:26; Stop 06/15/16 at 10:27; Status DC Ondansetron HCl (Zofran) 4 mg STK-MED ONCE .ROUTE ; Start 06/15/16 at 10:26; Stop 06/15/16 at 10:27; Status DC Rocuronium [place] 50 mg 50 mg STK-MED ONCE .ROUTE ; Start 06/15/16 at 10:26; Stop 06/15/16 at 10:27; Status DC Propofol (Diprivan) 20 ml @ As Directed STK-MED ONCE IV ; Start 06/15/16 at 10:26 ; Stop 06/15/16 at 10:27; Status DC Lidocaine HCl 100 mg STK-MED ONCE .ROUTE ; Start 06/15/16 at 10:26; Stop 06/15/16 at 10:27; Status DC Fentanyl Citrate (Fentanyl 2ml Vial) 100 mcg STK-MED ONCE .ROUTE ; Start at 10:26; Stop 06/15/16 at 10:27; Status DC Thrombin 20,000 unit STK-MED ONCE TP Last administered on 06/15/16 12:41; Start 06/15/16 at 10:47; Stop 06/15/16 at 10:48; Status DC Gelatin (Gelfoam Size 100) 1 each STK-MED ONCE .ROUTE Last administered on 06/15 12:41; Start 06/15/16 at 10:48; Stop 06/15/16 at 10:49; Status DC Bupivacaine HCl/ Epinephrine Bitart (Sensorcaine-Epi 0.25%-1:775457 Mpf) 30 ml STK-MED ONCE .ROUTE Last administered on 06/15/16 12:41; Start 06/15/16 at 10:48 ; Stop 06/15/16 at 10:49; Status DC Cellulose 1 each STK-MED ONCE .ROUTE ; Start 06/15/16 at 10:49; Stop 06/15/16 at 10:50; Status DC Potassium Chloride 20 meq 20 meq 1X ONCE PO Last administered on 06/15/16 11: 21; Start 06/15/16 at 11:15; Stop 06/15/16 at 11:16; Status DC Cefazolin Sodium/ Dextrose (Ancef 2gm Premix) 50 ml @ 100 mls/hr 1X PREOP PRN IV PER PROTOCOL Last administered on 06/15/16 12:56; Start 06/16/16 at 06:00; Stop 06/16/16 at 18:00; Status DC Ephedrine Sulfate 50 mg STK-MED ONCE IV ; Start 06/15/16 at 13:04; Stop 06/15/16 at 13:05; Status DC Glycopyrrolate (Robinul) 1 mg STK-MED ONCE .ROUTE ; Start 06/15/16 at 13:39; Stop 06/15/16 at 13:40; Status DC Neostigmine Methylsulfate 5 mg STK-MED ONCE .ROUTE ; Start 06/15/16 at 13:39; Stop 06/15/16 at 13:40; Status DC Fentanyl Citrate (Fentanyl 2ml Vial) 100 mcg STK-MED ONCE .ROUTE ; Start at 13:55; Stop 06/15/16 at 13:56; Status DC Sevoflurane (Ultane) 30 ml STK-MED ONCE IH ; Start 06/15/16 at 13:55; Stop at 13:56; Status DC Sevoflurane (Ultane) 60 ml STK-MED ONCE IH ; Start 06/15/16 at 13:55; Stop at 13:56; Status DC Warfarin Sodium (Coumadin - No Dose Today) 1 each 1X WARF ONCE MC Last administered on 06/15/16 16:00; Start 06/15/16 at 16:00; Stop 06/15/16 at 16:01; Status DC Cefazolin Sodium/ Dextrose (Ancef 2gm Premix) 2 gm STK-MED ONCE IV ; Start at 13:00; Stop 06/16/16 at 08:05; Status DC Famotidine (Pepcid) 20 mg BID IVP ; Start 06/16/16 at 21:00; Stop 06/16/16 at 21 :00; Status DC Famotidine (Pepcid) 20 mg BID PO Last administered on 06/21/16 20:34; Start at 13:00 Warfarin Sodium (Coumadin) 5 mg 1X WARF ONCE PO Last administered on 18:15; Start 06/17/16 at 16:00; Stop 06/17/16 at 16:01; Status DC Warfarin Sodium (Coumadin) 7.5 mg 1X WARF ONCE PO Last administered on 16:25; Start 06/18/16 at 16:00; Stop 06/18/16 at 16:01; Status DC Ondansetron HCl (Zofran) 4 mg PRN Q6HRS PRN IV NAUSEA/VOMITING Last administered on 06/19/16 03:08; Start 06/19/16 at 03:00 Morphine Sulfate 2 mg PRN Q2HR PRN IV PAIN Last administered on 06/20/16 08:06 ; Start 06/19/16 at 03:00; Stop 06/20/16 at 10:14; Status DC Warfarin Sodium 7.5 mg 7.5 mg 1X WARF ONCE PO ; Start 06/19/16 at 16:00; Stop 06/19/16 at 16:01; Status DC Amino Acids/ Glycerin/ Electrolytes (Procalamine) 1,000 ml @ 75 mls/hr [id number] IV Last administered on 06/21/16 20:35; Start 06/19/16 at 16:15 Fentanyl Citrate (Fentanyl 2ml Vial) 50 mcg Q6HRS PRN IM BREAKTHROUGH PAIN; Start 06/20/16 at 10:15; Stop 06/20/16 at 11:08; Status DC Fentanyl Citrate (Fentanyl 2ml Vial) 50 mcg PRN Q6HRS PRN IV BREAKTHROUGH PAIN Last administered on 06/20/16 11:49; Start 06/20/16 at 11:15 Warfarin Sodium (Coumadin) 7.5 mg 1X WARF ONCE PO ; Start 06/20/16 at 16:00; Stop 06/20/16 at 16:01; Status DC Enoxaparin Sodium (Lovenox Per Pharmacy Treatment Dosing) 1 each PRN DAILY PRN MC SEE COMMENTS; Start 06/21/16 at 12:30; Stop 06/22/16 at 12:29 Enoxaparin Sodium (Lovenox 60mg Syringe) 60 mg Q12HR SQ Last administered on 14:53; Start 06/21/16 at 13:00 Active Scripts Active Reported Coumadin (Warfarin Sodium) 5 Mg Tablet 1 Tab PO DAILY Metoprolol Succinate ( Xl ) (Metoprolol Succinate) 25 Mg Tab.er.24h 25 Mg PO DAILY Vitals/I & O Vital Sign - Last 24 Hours 06/21/16 06/21/16 06/21/16 06/21/16 11:00 15:00 19:00 20:00 Temp 97.6 97.6 98.0 97.6 97.6 98.0 Pulse 76 89 90 Resp 18 18 18 B/P 120/69 111/63 94/66 Pulse Ox 93 94 94 O2 Delivery Room Air Room Air Room Air Room Air 06/21/16 06/21/16 06/22/16 06/22/16 20:34 23:00 02:02 03:00 Temp 98.0 97.6 98.0 97.6 Pulse 81 86 Resp 20 18 20 18 B/P 96/63 104/63 Pulse Ox 94 96 96 95 O2 Delivery Room Air Room Air Room Air Room Air O2 Flow Rate 2.0 06/22/16 06/22/16 06:10 07:10 Resp 20 20 Pulse Ox 96 96 O2 Delivery Room Air Room Air Intake and Output 06/21/16 06/21/16 06/22/16 15:00 23:00 07:00 Intake Total 120 ml Balance 120 ml EDWARD AMBROSE MD Jun 22, 2016 08:17
[2016-06-22] MEDS ORDERED: IV RINGERS,LACTATED 1000ML 1,000 ML IV SCH (08:52)
[2016-06-22] MEDS ORDERED: HYDROMORPHONE 2 MG/ML VIAL. IV PRN (09:00)
[2016-06-22] MEDS ORDERED: FENTANYL PF 100 MCG/2 ML VIAL. IV PRN (09:00)
[2016-06-22] MEDS ORDERED: PROCHLORPERAZINE 10 MG/2 ML VIAL. IV PRN (09:00)
[2016-06-22] MEDS: FAMOTIDINE 20 MG TABLET. PO SCH ×2 (09:00→21:13)
[2016-06-22] MEDS: ENOXAPARIN ** NOTE DOSE ** SYRINGE SQ SCH ×2 (09:00→21:13)
[2016-06-22] MEDS: METOPROLOL SUCC 24HR ER 25 MG TAB.ER.24H. PO SCH (09:00)
[2016-06-22] MEDS ORDERED: LIDOCAINE 1% 1 ML SYRINGE. ID PRN (09:00)
[2016-06-22] MEDS ORDERED: ONDANSETRON PF 4 MG/2 ML VIAL. IV PRN (09:00)
[2016-06-22] MEDS ORDERED: MORPHINE SULFATE 2 MG/ML DISP.SYRIN. IV PRN (09:00)
[2016-06-22] MEDS ORDERED: BACITRACIN 50,000 UNIT in IV NORMAL SALINE 1000ML BAG 1,000 ML IRR ONE (09:00)
[2016-06-22] MEDS ORDERED: SURGICEL HEMOSTAT 4X8 EACH. ONE (09:22)
[2016-06-22] MEDS ORDERED: THROMBIN 20,000 UNIT SPRAY.SYRN KIT TP ONE (09:22)
[2016-06-22] MEDS ORDERED: BUPIVACAINE-EPI 0.25%-1:200000 MPF 30 ML VIAL. ONE (09:22)
[2016-06-22] MEDS ORDERED: GELATIN SPONGE SIZE 100. ONE (09:23)
[2016-06-22] MEDS ORDERED: LIDOCAINE 2% 100 MG/5 ML DISP.SYRIN. ONE (09:57)
[2016-06-22] MEDS ORDERED: PROPOFOL 20 ML IV ONE (09:57)
[2016-06-22] MEDS ORDERED: ROCURONIUM 50 MG/5 ML VIAL. ONE (09:57)
[2016-06-22] MEDS ORDERED: DEXAMETHASONE SOD PHOS 20 MG/5 ML VIAL. ONE (09:58)
[2016-06-22] MEDS ORDERED: ONDANSETRON PF 4 MG/2 ML VIAL. ONE (09:58)
[2016-06-22] MEDS ORDERED: FENTANYL PF 100 MCG/2 ML VIAL. ONE (09:59)
[2016-06-22] MEDS ORDERED: CEFAZOLIN 2GM PREMIX 50 ML IV SCH (10:15)
[2016-06-22] MEDS ORDERED: METOPROLOL TARTRATE 5 MG/5 ML VIAL. ONE (11:05)
[2016-06-22] MEDS ORDERED: METOPROLOL TARTRATE 5 MG/5 ML VIAL. IVP ONE (11:15)
[2016-06-22] MEDS ORDERED: EPHEDRINE PF IN SALINE 50 MG/5 ML DISP.SYRIN. IV ONE (12:11)
[2016-06-22] MEDS ORDERED: GLYCOPYRROLATE 1 MG/5 ML VIAL. ONE (12:40)
[2016-06-22] MEDS ORDERED: NEOSTIGMINE METHYLSULFATE 5 MG/5 ML SYRINGE. ONE (12:40)
[2016-06-22] MEDS ORDERED: SEVOFLURANE 61 TO 120 MINUTES. IH ONE (13:05)
--- NOTE | 2016-06-22 13:28 | PDOC ---
PROGRESS NOTES Chief Complaint Chief Complaint headaches , b/l subdural hematoma - Acute bilateral subdural hematoma, s/p nela hole on L - Confusion and more lethargy, - Metabolic encephalopathy, improved - Marfan's syndrome; with hx of aortic and mitral valve replacements - L eye blindness - HTN, stable - Dysphagia, on NPO status History of Present Illness History of Present Illness Patient lying down in bed when evaluated this AM. Had reportedly been feeling drowsy, but pleasant and cooperative. According to the healthcare team, pt continues to improve in terms of levels of confusion. Denies fever. L sided subdural hematoma evacuation was a success, similar R sided procedure to follow. Discussed case with neurosurgery. Vitals Vitals Vital Signs Date Time Temp Pulse Resp B/P Pulse Ox O2 Delivery O2 Flow Rate FiO2 06/22/16 11:12 80 101/61 06/22/16 10:53 97.0 15 95 Room Air 97.0 06/21/16 20:34 2.0 Physical Exam General: No acute distress, Other (confused, ) Heart: Regular rate, Normal S1 Lungs: Clear, Other Abdomen: Normal bowel sounds Extremities: No clubbing, No cyanosis, No edema Skin: Other (incision- dry and navid intact) Review of Systems Review of Systems denies fever, chills, chest pain, shortness of breath. Assessment and Plan Assessmemt and Plan ASSESSMENT: - Acute b/l subdural hematoma, s/p nela hole on left - Headache - Metabolic encephalopathy, improved - Marfan's syndrome. - Left eye vision loss. - Dysphagia, on NPO status PLAN: - discussed case with neurosurgery who plans R sided subdural evacuation - continue fentanyl prn - Keppra if seizures - Warfarin on hold, continue Lovenox - BP control. - PT/OT - repeat labs Problems: Comment Review of Relevant I have reviewed the following items jordy (where applicable) has been applied. Labs Laboratory Tests Test 06/21/16 04:35 White Blood Count 11.9x10^3/uL (4.0-11.0) Red Blood Count 4.75x10^6/uL (4.30-5.70) Hemoglobin 14.2g/dL (13.0-17.5) Hematocrit 41.5% (39.0-53.0) Mean Corpuscular Volume 87fL (79-100) Mean Corpuscular Hemoglobin 30pg (25-35) Mean Corpuscular Hemoglobin Concent 34g/dL (31-37) Red Cell Distribution Width 13.5% (11.5-14.5) Platelet Count 249x10^3/uL (140-400) Neutrophils (%) (Auto) 81% (31-73) Lymphocytes (%) (Auto) 7% (24-48) Monocytes (%) (Auto) 11% (0-9) Eosinophils (%) (Auto) 1% (0-3) Basophils (%) (Auto) 1% (0-3) Neutrophils # (Auto) 9.6x10^3uL (1.8-7.7) Lymphocytes # (Auto) 0.9x10^3/uL (1.0-4.8) Monocytes # (Auto) 1.3x10^3/uL (0.0-1.1) Eosinophils # (Auto) 0.1x10^3/uL (0.0-0.7) Basophils # (Auto) 0.1x10^3/uL (0.0-0.2) Prothrombin Time 13.5SEC (11.7-14.0) Prothromb Time International Ratio 1.1 (0.8-1.1) Sodium Level 138mmol/L (136-145) Potassium Level 3.8mmol/L (3.5-5.1) Chloride Level 103mmol/L (98-107) Carbon Dioxide Level 25mmol/L (21-32) Anion Gap 10 (6-14) Blood Urea Nitrogen 19mg/dL (8-26) Creatinine 0.8mg/dL (0.7-1.3) Estimated GFR (Cockcroft-Gault) 102.3 Glucose Level 119mg/dL (70-99) Calcium Level 8.7mg/dL (8.5-10.1) Microbiology 06/13/16 Urine Culture - Final, Complete 06/13/16 Urine Culture Result 1 (GLENN) - Final, Complete Medications Current Medications Sodium Chloride (Iv Sodium Chloride 0.9% 1000ml Bag) 1,000 ml @ 100 mls/hr 1X ONCE IV Last administered on 06/13/16t 13:45; Start 06/13/16 at 13:45; Stop at 23:44; Status DC Phytonadione (Mephyton) 10 mg 1X ONCE PO Last administered on 06/13/16 15:03; Start 06/13/16 at 15:00; Stop 06/13/16 at 15:01; Status DC Ondansetron HCl 4 mg 4 mg PRN Q8HRS PRN IV NAUSEA/VOMITING; Start 06/13/16 at 16 :15; Stop 06/14/16 at 16:14; Status DC Sodium Chloride (Iv Sodium Chloride 0.9% 1000ml Bag) 1,000 ml @ 100 mls/hr Q10H IV Last administered on 06/14/16 05:49; Start 06/13/16 at 16:10; Stop at 13:20; Status DC Morphine Sulfate 2 mg 1X ONCE IV Last administered on 06/13/16 18:08; Start at 18:30; Stop 06/13/16 at 18:31; Status DC Oxycodone/ Acetaminophen (Percocet 5/325) 1 tab PRN Q4HRS PRN PO PAIN Last administered on 06/15/16 23:18; Start 06/13/16 at 18:00 Oxycodone/ Acetaminophen (Percocet 5/325) 2 tab PRN Q4HRS PRN PO PAIN Last administered on 06/22/16 06:10; Start 06/13/16 at 18:00 Metoprolol Succinate (Toprol Xl) 25 mg DAILY PO Last administered on 06/18/16 08:55; Start 06/14/16 at 09:00 Lorazepam 2 mg 2 mg PRN Q4HRS PRN IV ANXIETY / AGITATION; Start 06/13/16 at 19: 45 Levetiracetam 500 mg/Sodium Chloride 105 ml @ 400 mls/hr PRN Q12HRS PRN IV SEIZURES; Start 06/13/16 at 19:45 Potassium Chloride/Sodium Chloride (KCl 20 Meq-0.45% Nacl) 1,000 ml @ 100 mls/ hr Q10H IV Last administered on 06/17/16 03:24; Start 06/14/16 at 13:30; Stop 06/17/16 at 12:24; Status DC Warfarin Sodium (Coumadin Per Pharmacy) 1 each PRN DAILY PRN MC SEE COMMENTS Last administered on 1/14/17at 11:36; Start 06/14/16 at 16:00 Warfarin Sodium 2.5 mg 2.5 mg 1X WARF ONCE PO ; Start 06/14/16 at 17:00; Stop at 17:01; Status Cancel Bacitracin/Sodium Chloride (Iv Sodium Chloride 0.9% 1000ml Bag) 1,000 ml @ 1, 000 mls/hr 1X PERIOP ONCE IRR Last administered on 06/15/16t 12:41; Start at 10:00; Stop 06/15/16 at 10:59; Status DC Ondansetron HCl (Zofran) 4 mg PRN Q6HRS PRN IV Nausea; Start 06/15/16 at 10:00; Stop 06/16/16 at 09:59; Status DC Fentanyl Citrate (Fentanyl 2ml Vial) 25 mcg PRN Q5MIN PRN IV MILD PAIN; Start 06/15/16 at 10:00; Stop 06/16/16 at 09:59; Status DC Fentanyl Citrate (Fentanyl 2ml Vial) 50 mcg PRN Q5MIN PRN IV MODERATE PAIN; Start 06/15/16 at 10:00; Stop 06/16/16 at 09:59; Status DC Morphine Sulfate 1 mg 1 mg PRN Q10MIN PRN IV SEVERE PAIN; Start 06/15/16 at 10: 00; Stop 06/16/16 at 09:59; Status DC Lactated Ringer's (Iv Lactated Ringers) 1,000 ml @ 30 mls/hr Q24H IV ; Start at 09:47; Stop 06/15/16 at 21:46; Status DC Lidocaine HCl 2 ml 1X PRN PRN ID IV START; Start 06/15/16 at 10:00; Stop at 09:59; Status DC Hydromorphone HCl (Dilaudid) 0.5 mg PRN Q10MIN PRN IV SEV PAIN,Second choice; Start 06/15/16 at 10:00; Stop 06/16/16 at 09:59; Status DC Prochlorperazine Edisylate (Compazine) 5 mg PACU PRN PRN IV NAUSEA; Start at 10:00; Stop 06/16/16 at 09:59; Status DC Phytonadione (Vitamin K) 2 mg 1X ONCE SQ Last administered on 06/15/16 11:21; Start 06/15/16 at 09:45; Stop 06/15/16 at 09:57; Status DC Dexamethasone Sodium Phosphate (Decadron) 20 mg STK-MED ONCE .ROUTE ; Start 06/15 at 10:26; Stop 06/15/16 at 10:27; Status DC Ondansetron HCl (Zofran) 4 mg STK-MED ONCE .ROUTE ; Start 06/15/16 at 10:26; Stop 06/15/16 at 10:27; Status DC Rocuronium Sumner 50 mg 50 mg STK-MED ONCE .ROUTE ; Start 06/15/16 at 10:26; Stop 06/15/16 at 10:27; Status DC Propofol (Diprivan) 20 ml @ As Directed STK-MED ONCE IV ; Start 06/15/16 at 10:26 ; Stop 06/15/16 at 10:27; Status DC Lidocaine HCl 100 mg STK-MED ONCE .ROUTE ; Start 06/15/16 at 10:26; Stop 06/15/16 at 10:27; Status DC Fentanyl Citrate (Fentanyl 2ml Vial) 100 mcg STK-MED ONCE .ROUTE ; Start at 10:26; Stop 06/15/16 at 10:27; Status DC Thrombin 20,000 unit STK-MED ONCE TP Last administered on 06/15/16 12:41; Start 06/15/16 at 10:47; Stop 06/15/16 at 10:48; Status DC Gelatin (Gelfoam Size 100) 1 each STK-MED ONCE .ROUTE Last administered on 06/15 12:41; Start 06/15/16 at 10:48; Stop 06/15/16 at 10:49; Status DC Bupivacaine HCl/ Epinephrine Bitart (Sensorcaine-Epi 0.25%-1:228081 Mpf) 30 ml STK-MED ONCE .ROUTE Last administered on 06/15/16 12:41; Start 06/15/16 at 10:48 ; Stop 06/15/16 at 10:49; Status DC Cellulose 1 each STK-MED ONCE .ROUTE ; Start 06/15/16 at 10:49; Stop 06/15/16 at 10:50; Status DC Potassium Chloride 20 meq 20 meq 1X ONCE PO Last administered on 06/15/16 11: 21; Start 06/15/16 at 11:15; Stop 06/15/16 at 11:16; Status DC Cefazolin Sodium/ Dextrose (Ancef 2gm Premix) 50 ml @ 100 mls/hr 1X PREOP PRN IV PER PROTOCOL Last administered on 06/15/16 12:56; Start 06/16/16 at 06:00; Stop 06/16/16 at 18:00; Status DC Ephedrine Sulfate 50 mg STK-MED ONCE IV ; Start 06/15/16 at 13:04; Stop 06/15/16 at 13:05; Status DC Glycopyrrolate (Robinul) 1 mg STK-MED ONCE .ROUTE ; Start 06/15/16 at 13:39; Stop 06/15/16 at 13:40; Status DC Neostigmine Methylsulfate 5 mg STK-MED ONCE .ROUTE ; Start 06/15/16 at 13:39; Stop 06/15/16 at 13:40; Status DC Fentanyl Citrate (Fentanyl 2ml Vial) 100 mcg STK-MED ONCE .ROUTE ; Start at 13:55; Stop 06/15/16 at 13:56; Status DC Sevoflurane (Ultane) 30 ml STK-MED ONCE IH ; Start 06/15/16 at 13:55; Stop at 13:56; Status DC Sevoflurane (Ultane) 60 ml STK-MED ONCE IH ; Start 06/15/16 at 13:55; Stop at 13:56; Status DC Warfarin Sodium (Coumadin - No Dose Today) 1 each 1X WARF ONCE MC Last administered on 06/15/16t 16:00; Start 06/15/16 at 16:00; Stop 06/15/16 at 16:01; Status DC Cefazolin Sodium/ Dextrose (Ancef 2gm Premix) 2 gm STK-MED ONCE IV ; Start at 13:00; Stop 06/16/16 at 08:05; Status DC Famotidine (Pepcid) 20 mg BID IVP ; Start 06/16/16 at 21:00; Stop 06/16/16 at 21 :00; Status DC Famotidine (Pepcid) 20 mg BID PO Last administered on 06/21/16 20:34; Start at 13:00 Warfarin Sodium (Coumadin) 5 mg 1X WARF ONCE PO Last administered on 18:15; Start 06/17/16 at 16:00; Stop 06/17/16 at 16:01; Status DC Warfarin Sodium (Coumadin) 7.5 mg 1X WARF ONCE PO Last administered on 16:25; Start 06/18/16 at 16:00; Stop 06/18/16 at 16:01; Status DC Ondansetron HCl (Zofran) 4 mg PRN Q6HRS PRN IV NAUSEA/VOMITING Last administered on 06/19/16 03:08; Start 06/19/16 at 03:00 Morphine Sulfate 2 mg PRN Q2HR PRN IV PAIN Last administered on 06/20/16 08:06 ; Start 06/19/16 at 03:00; Stop 06/20/16 at 10:14; Status DC Warfarin Sodium 7.5 mg 7.5 mg 1X WARF ONCE PO ; Start 06/19/16 at 16:00; Stop 06/19/16 at 16:01; Status DC Amino Acids/ Glycerin/ Electrolytes (Procalamine) 1,000 ml @ 75 mls/hr [id number] IV Last administered on 06/21/16 20:35; Start 06/19/16 at 16:15 Fentanyl Citrate (Fentanyl 2ml Vial) 50 mcg Q6HRS PRN IM BREAKTHROUGH PAIN; Start 06/20/16 at 10:15; Stop 06/20/16 at 11:08; Status DC Fentanyl Citrate (Fentanyl 2ml Vial) 50 mcg PRN Q6HRS PRN IV BREAKTHROUGH PAIN Last administered on 06/20/16 11:49; Start 06/20/16 at 11:15 Warfarin Sodium (Coumadin) 7.5 mg 1X WARF ONCE PO ; Start 06/20/16 at 16:00; Stop 06/20/16 at 16:01; Status DC Enoxaparin Sodium (Lovenox Per Pharmacy Treatment Dosing) 1 each PRN DAILY PRN MC SEE COMMENTS; Start 06/21/16 at 12:30; Stop 06/22/16 at 12:29; Status DC Enoxaparin Sodium 60 mg 60 mg Q12HR SQ Last administered on 06/21/16t 14:53; Start 06/21/16 at 13:00 Bacitracin/Sodium Chloride (Iv Sodium Chloride 0.9% 1000ml Bag) 1,000 ml @ 1, 000 mls/hr 1X PERIOP ONCE IRR ; Start 06/22/16 at 09:00; Stop 06/22/16 at 09:59 ; Status DC Ondansetron HCl (Zofran) 4 mg PRN Q6HRS PRN IV Nausea; Start 06/22/16 at 09:00 ; Stop 06/22/16 at 18:00 Fentanyl Citrate (Fentanyl 2ml Vial) 25 mcg PRN Q5MIN PRN IV MILD PAIN; Start 06/22/16 at 09:00; Stop 06/22/16 at 18:00 Fentanyl Citrate (Fentanyl 2ml Vial) 50 mcg PRN Q5MIN PRN IV MODERATE PAIN; Start 06/22/16 at 09:00; Stop 06/22/16 at 18:00 Morphine Sulfate 1 mg 1 mg PRN Q10MIN PRN IV SEVERE PAIN; Start 06/22/16 at 09: 00; Stop 06/22/16 at 18:00 Lactated Ringer's (Iv Lactated Ringers) 1,000 ml @ 30 mls/hr Q24H IV Last administered on 06/22/16t 10:55; Start 06/22/16 at 08:52; Stop 06/22/16 at 20:51 Lidocaine HCl 2 ml 1X PRN PRN ID IV START; Start 06/22/16 at 09:00; Stop at 18:00 Hydromorphone HCl (Dilaudid) 0.5 mg PRN Q10MIN PRN IV SEV PAIN,Second choice; Start 06/22/16 at 09:00; Stop 06/22/16 at 18:00 Prochlorperazine Edisylate (Compazine) 5 mg PACU PRN PRN IV NAUSEA; Start 06/22 at 09:00; Stop 06/22/16 at 18:00 Bupivacaine HCl/ Epinephrine Bitart (Sensorcaine-Epi 0.25%-1:483039 Mpf) 30 ml STK-MED ONCE .ROUTE ; Start 06/22/16 at 09:22; Stop 06/22/16 at 09:23; Status DC Cellulose 1 each STK-MED ONCE .ROUTE ; Start 06/22/16 at 09:22; Stop 06/22/16 at 09:23; Status DC Thrombin 20,000 unit STK-MED ONCE TP ; Start 06/22/16 at 09:22; Stop 06/22/16 at 09:23; Status DC Gelatin 1 each 1 each STK-MED ONCE .ROUTE ; Start 06/22/16 at 09:23; Stop at 09:24; Status DC Propofol (Diprivan) 20 ml @ As Directed STK-MED ONCE IV ; Start 06/22/16 at 09: 57; Stop 06/22/16 at 09:58; Status DC Lidocaine HCl 100 mg STK-MED ONCE .ROUTE ; Start 06/22/16 at 09:57; Stop at 09:58; Status DC Rocuronium Sumner (Zemuron) 50 mg STK-MED ONCE .ROUTE ; Start 06/22/16 at 09:57 ; Stop 06/22/16 at 09:58; Status DC Ondansetron HCl (Zofran) 4 mg STK-MED ONCE .ROUTE ; Start 06/22/16 at 09:58; Stop 06/22/16 at 09:59; Status DC Dexamethasone Sodium Phosphate (Decadron) 20 mg STK-MED ONCE .ROUTE ; Start at 09:58; Stop 06/22/16 at 09:59; Status DC Fentanyl Citrate 100 mcg 100 mcg STK-MED ONCE .ROUTE ; Start 06/22/16 at 09:59; Stop 06/22/16 at 10:00; Status DC Cefazolin Sodium/ Dextrose (Ancef 2gm Premix) 50 ml @ 100 mls/hr 1X PREOP IV Last administered on 06/22/16t 12:37; Start 06/22/16 at 10:15 Metoprolol Tartrate (Lopressor) 5 mg STK-MED ONCE .ROUTE ; Start 06/22/16 at 11: 05; Stop 06/22/16 at 11:06; Status DC Metoprolol Tartrate (Lopressor) 5 mg 1X ONCE IVP Last administered on t 11:12; Start 06/22/16 at 11:15; Stop 06/22/16 at 11:16; Status DC Ephedrine Sulfate 50 mg STK-MED ONCE IV ; Start 06/22/16 at 12:11; Stop at 12:12; Status DC Glycopyrrolate (Robinul) 1 mg STK-MED ONCE .ROUTE ; Start 06/22/16 at 12:40; Stop 06/22/16 at 12:41; Status DC Neostigmine Methylsulfate 5 mg STK-MED ONCE .ROUTE ; Start 06/22/16 at 12:40; Stop 06/22/16 at 12:41; Status DC Sevoflurane (Ultane) 60 ml STK-MED ONCE IH ; Start 06/22/16 at 13:05; Stop 06/22 at 13:06; Status DC Active Scripts Active Reported Coumadin (Warfarin Sodium) 5 Mg Tablet 1 Tab PO DAILY Metoprolol Succinate ( Xl ) (Metoprolol Succinate) 25 Mg Tab.er.24h 25 Mg PO DAILY Vitals/I & O Vital Sign - Last 24 Hours 06/21/16 06/21/16 06/21/16 06/21/16 15:00 19:00 20:00 20:34 Temp 97.6 98.0 97.6 98.0 Pulse 89 90 Resp 18 18 20 B/P 111/63 94/66 Pulse Ox 94 94 94 O2 Delivery Room Air Room Air Room Air Room Air O2 Flow Rate 2.0 06/21/16 06/22/16 06/22/16 06/22/16 23:00 02:02 03:00 06:10 Temp 98.0 97.6 98.0 97.6 Pulse 81 86 Resp 18 20 18 20 B/P 96/63 104/63 Pulse Ox 96 96 95 96 O2 Delivery Room Air Room Air Room Air Room Air 06/22/16 06/22/16 06/22/16 06/22/16 07:00 07:10 09:00 10:53 Temp 97.4 97.0 97.4 97.0 Pulse 96 96 82 Resp 14 20 15 B/P 87/57 87/57 101/61 Pulse Ox 94 96 95 O2 Delivery Room Air Room Air Room Air 06/22/16 11:12 Pulse 80 B/P 101/61 Intake and Output 06/21/16 06/21/16 06/22/16 15:00 23:00 07:00 Intake Total 120 ml Balance 120 ml CASTLE,NIAL K III DO Jun 22, 2016 13:28
[2016-06-22] MEDS: FENTANYL PF 100 MCG/2 ML VIAL. IV PRN ×4 (14:06→22:11)
[2016-06-22] MEDS: AA 3%/ELECTROLYTE-TPN SOLN/GLY 1,000 ML IV SCH (15:29)
[2016-06-22] MEDS: CEFAZOLIN SODIUM 1 GM in IV NORMAL SALINE 50ML 50 ML IV SCH (23:12)
[2016-06-23] VITALS (24 sets, daily range): BP systolic 84–107; BP diastolic 52–69
[2016-06-23] MEDS: OXYCODONE/APAP 5/325 TABLET. PO PRN ×2 (00:07→23:05)
[2016-06-23] MEDS: AA 3%/ELECTROLYTE-TPN SOLN/GLY 1,000 ML IV SCH (01:06)
[2016-06-23] MEDS: LORAZEPAM 2 MG/ML VIAL IV PRN (01:06)
[2016-06-23 04:57] LABS: BASO % 0 % (0-3); EOS % 0 % (0-3); HEMATOCRIT 35.4 % (39.0-53.0); LYMPH # 0.5 x10^3/uL (1.0-4.8); LYMPH % 6 % (24-48); MEAN CORPUSCULAR HEMOGLOBIN 30 pg (25-35); MEAN CORPUSCULAR HGB CONC 34 g/dL (31-37); MEAN CORPUSCULAR VOLUME 89 fL (79-100); MONO % 12 % (0-9); NEUT % 82 % (31-73); PLATELET COUNT 223 x10^3/uL (140-400); RED BLOOD COUNT 3.99 x10^6/uL (4.30-5.70); RED CELL DISTRIBUTION WIDTH 13.2 % (11.5-14.5); WHITE BLOOD COUNT 7.8 x10^3/uL (4.0-11.0)
[2016-06-23 05:22] LABS: CALCIUM 8.5 mg/dL (8.5-10.1); CREATININE 0.8 mg/dL (0.7-1.3); GFR 102.3; POTASSIUM 4.5 mmol/L (3.5-5.1)
[2016-06-23] MEDS: CEFAZOLIN SODIUM 1 GM in IV NORMAL SALINE 50ML 50 ML IV SCH ×3 (06:02→21:23)
--- NOTE | 2016-06-23 08:32 | PDOC ---
PROGRESS NOTES Assessment Problems Medical Problems: (1) Subdural hematoma Status: Acute (2) Supratherapeutic INR Status: Acute Bilateral SDH, now status post bilateral nela holes Headache, none now Metabolic encephalopathy, remains bright today. Marfan's syndrome, aortic and mitral valve disease/replacements. Left eye vision loss. Dysphagia, on nothing by mouth status Plan Follow dysphagia Continue fentanyl prn Keppra if seizures. Subjective Denies headache Objective Vital Signs Date Time Temp Pulse Resp B/P Pulse Ox O2 Delivery O2 Flow Rate FiO2 06/23/16 07:58 Room Air 06/23/16 07:00 98.4 66 16 99/68 97 98.4 06/22/16 14:06 2.0 Intake and Output 06/23/16 07:00 Intake Total 1873.1 ml Output Total 1115 ml Balance 758.1 ml Intake Oral 500 ml IV Total 1373.1 ml Output Urine Total 1100 ml Drainage Total 15 ml PHYSICAL EXAM Alert, follows commands, knows that he is in the hospital, does not know the date No hiccups Left cornea is scarred, right pupil reacts EOMI. CN: no focal findings. Muscle tone: normal. Muscle strength: 5-/5 DTR: 2+ Plantar reflex: flexor Gait: not examined in bed. Sensory exam: no abnormal findings. No cerebellar signs Review of Relevant I have reviewed the following items jordy (where applicable) has been applied. Labs Laboratory Tests Test 06/23/16 04:35 White Blood Count 7.8x10^3/uL (4.0-11.0) Red Blood Count 3.99x10^6/uL (4.30-5.70) Hemoglobin 12.0g/dL (13.0-17.5) Hematocrit 35.4% (39.0-53.0) Mean Corpuscular Volume 89fL (79-100) Mean Corpuscular Hemoglobin 30pg (25-35) Mean Corpuscular Hemoglobin Concent 34g/dL (31-37) Red Cell Distribution Width 13.2% (11.5-14.5) Platelet Count 223x10^3/uL (140-400) Neutrophils (%) (Auto) 82% (31-73) Lymphocytes (%) (Auto) 6% (24-48) Monocytes (%) (Auto) 12% (0-9) Eosinophils (%) (Auto) 0% (0-3) Basophils (%) (Auto) 0% (0-3) Neutrophils # (Auto) 6.4x10^3uL (1.8-7.7) Lymphocytes # (Auto) 0.5x10^3/uL (1.0-4.8) Monocytes # (Auto) 0.9x10^3/uL (0.0-1.1) Eosinophils # (Auto) 0.0x10^3/uL (0.0-0.7) Basophils # (Auto) 0.0x10^3/uL (0.0-0.2) Sodium Level 136mmol/L (136-145) Potassium Level 4.5mmol/L (3.5-5.1) Chloride Level 102mmol/L (98-107) Carbon Dioxide Level 27mmol/L (21-32) Anion Gap 7 (6-14) Blood Urea Nitrogen 21mg/dL (8-26) Creatinine 0.8mg/dL (0.7-1.3) Estimated GFR (Cockcroft-Gault) 102.3 Glucose Level 115mg/dL (70-99) Calcium Level 8.5mg/dL (8.5-10.1) Laboratory Tests Test 06/23/16 04:35 White Blood Count 7.8x10^3/uL (4.0-11.0) Red Blood Count 3.99x10^6/uL (4.30-5.70) Hemoglobin 12.0g/dL (13.0-17.5) Hematocrit 35.4% (39.0-53.0) Mean Corpuscular Volume 89fL (79-100) Mean Corpuscular Hemoglobin 30pg (25-35) Mean Corpuscular Hemoglobin Concent 34g/dL (31-37) Red Cell Distribution Width 13.2% (11.5-14.5) Platelet Count 223x10^3/uL (140-400) Neutrophils (%) (Auto) 82% (31-73) Lymphocytes (%) (Auto) 6% (24-48) Monocytes (%) (Auto) 12% (0-9) Eosinophils (%) (Auto) 0% (0-3) Basophils (%) (Auto) 0% (0-3) Neutrophils # (Auto) 6.4x10^3uL (1.8-7.7) Lymphocytes # (Auto) 0.5x10^3/uL (1.0-4.8) Monocytes # (Auto) 0.9x10^3/uL (0.0-1.1) Eosinophils # (Auto) 0.0x10^3/uL (0.0-0.7) Basophils # (Auto) 0.0x10^3/uL (0.0-0.2) Sodium Level 136mmol/L (136-145) Potassium Level 4.5mmol/L (3.5-5.1) Chloride Level 102mmol/L (98-107) Carbon Dioxide Level 27mmol/L (21-32) Anion Gap 7 (6-14) Blood Urea Nitrogen 21mg/dL (8-26) Creatinine 0.8mg/dL (0.7-1.3) Estimated GFR (Cockcroft-Gault) 102.3 Glucose Level 115mg/dL (70-99) Calcium Level 8.5mg/dL (8.5-10.1) Microbiology 06/13/16 Urine Culture - Final, Complete 06/13/16 Urine Culture Result 1 (GLENN) - Final, Complete Medications Current Medications Sodium Chloride (Iv Sodium Chloride 0.9% 1000ml Bag) 1,000 ml @ 100 mls/hr 1X ONCE IV Last administered on 06/13/16 13:45; Start 06/13/16 at 13:45; Stop at 23:44; Status DC Phytonadione (Mephyton) 10 mg 1X ONCE PO Last administered on 06/13/16 15:03; Start 06/13/16 at 15:00; Stop 06/13/16 at 15:01; Status DC Ondansetron HCl 4 mg 4 mg PRN Q8HRS PRN IV NAUSEA/VOMITING; Start 06/13/16 at 16 :15; Stop 06/14/16 at 16:14; Status DC Sodium Chloride (Iv Sodium Chloride 0.9% 1000ml Bag) 1,000 ml @ 100 mls/hr Q10H IV Last administered on 06/14/16 05:49; Start 06/13/16 at 16:10; Stop at 13:20; Status DC Morphine Sulfate 2 mg 1X ONCE IV Last administered on 06/13/16 18:08; Start at 18:30; Stop 06/13/16 at 18:31; Status DC Oxycodone/ Acetaminophen (Percocet 5/325) 1 tab PRN Q4HRS PRN PO PAIN Last administered on 06/22/16 19:15; Start 06/13/16 at 18:00 Oxycodone/ Acetaminophen (Percocet 5/325) 2 tab PRN Q4HRS PRN PO PAIN Last administered on 06/23/16 00:07; Start 06/13/16 at 18:00 Metoprolol Succinate (Toprol Xl) 25 mg DAILY PO Last administered on 06/18/16 08:55; Start 06/14/16 at 09:00 Lorazepam 2 mg 2 mg PRN Q4HRS PRN IV ANXIETY / AGITATION Last administered on 01:06; Start 06/13/16 at 19:45 Levetiracetam 500 mg/Sodium Chloride 105 ml @ 400 mls/hr PRN Q12HRS PRN IV SEIZURES; Start 06/13/16 at 19:45 Potassium Chloride/Sodium Chloride (KCl 20 Meq-0.45% Nacl) 1,000 ml @ 100 mls/ hr Q10H IV Last administered on 06/17/16 03:24; Start 06/14/16 at 13:30; Stop 06/17/16 at 12:24; Status DC Warfarin Sodium (Coumadin Per Pharmacy) 1 each PRN DAILY PRN MC SEE COMMENTS Last administered on 06/20/16 11:36; Start 06/14/16 at 16:00 Warfarin Sodium 2.5 mg 2.5 mg 1X WARF ONCE PO ; Start 06/14/16 at 17:00; Stop at 17:01; Status Cancel Bacitracin/Sodium Chloride (Iv Sodium Chloride 0.9% 1000ml Bag) 1,000 ml @ 1, 000 mls/hr 1X PERIOP ONCE IRR Last administered on 06/15/16 12:41; Start at 10:00; Stop 06/15/16 at 10:59; Status DC Ondansetron HCl (Zofran) 4 mg PRN Q6HRS PRN IV Nausea; Start 06/15/16 at 10:00; Stop 06/16/16 at 09:59; Status DC Fentanyl Citrate (Fentanyl 2ml Vial) 25 mcg PRN Q5MIN PRN IV MILD PAIN; Start 06/15/16 at 10:00; Stop 06/16/16 at 09:59; Status DC Fentanyl Citrate (Fentanyl 2ml Vial) 50 mcg PRN Q5MIN PRN IV MODERATE PAIN; Start 06/15/16 at 10:00; Stop 06/16/16 at 09:59; Status DC Morphine Sulfate 1 mg 1 mg PRN Q10MIN PRN IV SEVERE PAIN; Start 06/15/16 at 10: 00; Stop 06/16/16 at 09:59; Status DC Lactated Ringer's (Iv Lactated Ringers) 1,000 ml @ 30 mls/hr Q24H IV ; Start at 09:47; Stop 06/15/16 at 21:46; Status DC Lidocaine HCl 2 ml 1X PRN PRN ID IV START; Start 06/15/16 at 10:00; Stop at 09:59; Status DC Hydromorphone HCl (Dilaudid) 0.5 mg PRN Q10MIN PRN IV SEV PAIN,Second choice; Start 06/15/16 at 10:00; Stop 06/16/16 at 09:59; Status DC Prochlorperazine Edisylate (Compazine) 5 mg PACU PRN PRN IV NAUSEA; Start at 10:00; Stop 06/16/16 at 09:59; Status DC Phytonadione (Vitamin K) 2 mg 1X ONCE SQ Last administered on 06/15/16t 11:21; Start 06/15/16 at 09:45; Stop 06/15/16 at 09:57; Status DC Dexamethasone Sodium Phosphate (Decadron) 20 mg STK-MED ONCE .ROUTE ; Start 06/15 at 10:26; Stop 06/15/16 at 10:27; Status DC Ondansetron HCl (Zofran) 4 mg STK-MED ONCE .ROUTE ; Start 06/15/16 at 10:26; Stop 06/15/16 at 10:27; Status DC Rocuronium Baisden 50 mg 50 mg STK-MED ONCE .ROUTE ; Start 06/15/16 at 10:26; Stop 06/15/16 at 10:27; Status DC Propofol (Diprivan) 20 ml @ As Directed STK-MED ONCE IV ; Start 06/15/16 at 10:26 ; Stop 06/15/16 at 10:27; Status DC Lidocaine HCl 100 mg STK-MED ONCE .ROUTE ; Start 06/15/16 at 10:26; Stop 06/15/16 at 10:27; Status DC Fentanyl Citrate (Fentanyl 2ml Vial) 100 mcg STK-MED ONCE .ROUTE ; Start at 10:26; Stop 06/15/16 at 10:27; Status DC Thrombin 20,000 unit STK-MED ONCE TP Last administered on 06/15/16 12:41; Start 06/15/16 at 10:47; Stop 06/15/16 at 10:48; Status DC Gelatin (Gelfoam Size 100) 1 each STK-MED ONCE .ROUTE Last administered on 06/15 12:41; Start 06/15/16 at 10:48; Stop 06/15/16 at 10:49; Status DC Bupivacaine HCl/ Epinephrine Bitart (Sensorcaine-Epi 0.25%-1:777002 Mpf) 30 ml STK-MED ONCE .ROUTE Last administered on 06/15/16 12:41; Start 06/15/16 at 10:48 ; Stop 06/15/16 at 10:49; Status DC Cellulose 1 each STK-MED ONCE .ROUTE ; Start 06/15/16 at 10:49; Stop 06/15/16 at 10:50; Status DC Potassium Chloride 20 meq 20 meq 1X ONCE PO Last administered on 06/15/16 11: 21; Start 06/15/16 at 11:15; Stop 06/15/16 at 11:16; Status DC Cefazolin Sodium/ Dextrose (Ancef 2gm Premix) 50 ml @ 100 mls/hr 1X PREOP PRN IV PER PROTOCOL Last administered on 06/15/16 12:56; Start 06/16/16 at 06:00; Stop 06/16/16 at 18:00; Status DC Ephedrine Sulfate 50 mg STK-MED ONCE IV ; Start 06/15/16 at 13:04; Stop 06/15/16 at 13:05; Status DC Glycopyrrolate (Robinul) 1 mg STK-MED ONCE .ROUTE ; Start 06/15/16 at 13:39; Stop 06/15/16 at 13:40; Status DC Neostigmine Methylsulfate 5 mg STK-MED ONCE .ROUTE ; Start 06/15/16 at 13:39; Stop 06/15/16 at 13:40; Status DC Fentanyl Citrate (Fentanyl 2ml Vial) 100 mcg STK-MED ONCE .ROUTE ; Start at 13:55; Stop 06/15/16 at 13:56; Status DC Sevoflurane (Ultane) 30 ml STK-MED ONCE IH ; Start 06/15/16 at 13:55; Stop at 13:56; Status DC Sevoflurane (Ultane) 60 ml STK-MED ONCE IH ; Start 06/15/16 at 13:55; Stop at 13:56; Status DC Warfarin Sodium (Coumadin - No Dose Today) 1 each 1X WARF ONCE MC Last administered on 06/15/16 16:00; Start 06/15/16 at 16:00; Stop 06/15/16 at 16:01; Status DC Cefazolin Sodium/ Dextrose (Ancef 2gm Premix) 2 gm STK-MED ONCE IV ; Start at 13:00; Stop 06/16/16 at 08:05; Status DC Famotidine (Pepcid) 20 mg BID IVP ; Start 06/16/16 at 21:00; Stop 06/16/16 at 21 :00; Status DC Famotidine (Pepcid) 20 mg BID PO Last administered on 06/22/16 21:13; Start at 13:00 Warfarin Sodium (Coumadin) 5 mg 1X WARF ONCE PO Last administered on 18:15; Start 06/17/16 at 16:00; Stop 06/17/16 at 16:01; Status DC Warfarin Sodium (Coumadin) 7.5 mg 1X WARF ONCE PO Last administered on 16:25; Start 06/18/16 at 16:00; Stop 06/18/16 at 16:01; Status DC Ondansetron HCl (Zofran) 4 mg PRN Q6HRS PRN IV NAUSEA/VOMITING Last administered on 06/19/16 03:08; Start 06/19/16 at 03:00 Morphine Sulfate 2 mg PRN Q2HR PRN IV PAIN Last administered on 06/20/16 08:06 ; Start 06/19/16 at 03:00; Stop 06/20/16 at 10:14; Status DC Warfarin Sodium 7.5 mg 7.5 mg 1X WARF ONCE PO ; Start 06/19/16 at 16:00; Stop 06/19/16 at 16:01; Status DC Amino Acids/ Glycerin/ Electrolytes (Procalamine) 1,000 ml @ 75 mls/hr [id number] IV Last administered on 06/23/16 01:06; Start 06/19/16 at 16:15 Fentanyl Citrate (Fentanyl 2ml Vial) 50 mcg Q6HRS PRN IM BREAKTHROUGH PAIN; Start 06/20/16 at 10:15; Stop 06/20/16 at 11:08; Status DC Fentanyl Citrate (Fentanyl 2ml Vial) 50 mcg PRN Q6HRS PRN IV BREAKTHROUGH PAIN Last administered on 06/22/16 22:11; Start 06/20/16 at 11:15 Warfarin Sodium (Coumadin) 7.5 mg 1X WARF ONCE PO ; Start 06/20/16 at 16:00; Stop 06/20/16 at 16:01; Status DC Enoxaparin Sodium (Lovenox Per Pharmacy Treatment Dosing) 1 each PRN DAILY PRN MC SEE COMMENTS; Start 06/21/16 at 12:30; Stop 06/22/16 at 12:29; Status DC Enoxaparin Sodium 60 mg 60 mg Q12HR SQ Last administered on 06/22/16 21:13; Start 06/21/16 at 13:00 Bacitracin/Sodium Chloride (Iv Sodium Chloride 0.9% 1000ml Bag) 1,000 ml @ 1, 000 mls/hr 1X PERIOP ONCE IRR ; Start 06/22/16 at 09:00; Stop 06/22/16 at 09:59 ; Status DC Ondansetron HCl (Zofran) 4 mg PRN Q6HRS PRN IV Nausea; Start 06/22/16 at 09:00 ; Stop 06/22/16 at 18:00; Status DC Fentanyl Citrate (Fentanyl 2ml Vial) 25 mcg PRN Q5MIN PRN IV MILD PAIN; Start 06/22/16 at 09:00; Stop 06/22/16 at 18:00; Status DC Fentanyl Citrate (Fentanyl 2ml Vial) 50 mcg PRN Q5MIN PRN IV MODERATE PAIN Last administered on 06/22/16 17:20; Start 06/22/16 at 09:00; Stop 06/22/16 at 18:00; Status DC Morphine Sulfate 1 mg 1 mg PRN Q10MIN PRN IV SEVERE PAIN; Start 06/22/16 at 09: 00; Stop 06/22/16 at 18:00; Status DC Lactated Ringer's (Iv Lactated Ringers) 1,000 ml @ 30 mls/hr Q24H IV Last administered on 06/22/16 10:55; Start 06/22/16 at 08:52; Stop 06/22/16 at 20:51 ; Status DC Lidocaine HCl 2 ml 1X PRN PRN ID IV START; Start 06/22/16 at 09:00; Stop at 18:00; Status DC Hydromorphone HCl (Dilaudid) 0.5 mg PRN Q10MIN PRN IV SEV PAIN,Second choice; Start 06/22/16 at 09:00; Stop 06/22/16 at 18:00; Status DC Prochlorperazine Edisylate (Compazine) 5 mg PACU PRN PRN IV NAUSEA; Start 06/22 at 09:00; Stop 06/22/16 at 18:00; Status DC Bupivacaine HCl/ Epinephrine Bitart (Sensorcaine-Epi 0.25%-1:628185 Mpf) 30 ml STK-MED ONCE .ROUTE Last administered on 06/22/16 12:21; Start 06/22/16 at 09: 22; Stop 06/22/16 at 09:23; Status DC Cellulose 1 each STK-MED ONCE .ROUTE ; Start 06/22/16 at 09:22; Stop 06/22/16 at 09:23; Status DC Thrombin 20,000 unit STK-MED ONCE TP Last administered on 06/22/16 12:21; Start 06/22/16 at 09:22; Stop 06/22/16 at 09:23; Status DC Gelatin 1 each 1 each STK-MED ONCE .ROUTE Last administered on 1/16/17at 12:21 ; Start 06/22/16 at 09:23; Stop 06/22/16 at 09:24; Status DC Propofol (Diprivan) 20 ml @ As Directed STK-MED ONCE IV ; Start 06/22/16 at 09: 57; Stop 06/22/16 at 09:58; Status DC Lidocaine HCl 100 mg STK-MED ONCE .ROUTE ; Start 06/22/16 at 09:57; Stop at 09:58; Status DC Rocuronium Baisden (Zemuron) 50 mg STK-MED ONCE .ROUTE ; Start 06/22/16 at 09:57 ; Stop 06/22/16 at 09:58; Status DC Ondansetron HCl (Zofran) 4 mg STK-MED ONCE .ROUTE ; Start 06/22/16 at 09:58; Stop 06/22/16 at 09:59; Status DC Dexamethasone Sodium Phosphate (Decadron) 20 mg STK-MED ONCE .ROUTE ; Start at 09:58; Stop 06/22/16 at 09:59; Status DC Fentanyl Citrate 100 mcg 100 mcg STK-MED ONCE .ROUTE ; Start 06/22/16 at 09:59; Stop 06/22/16 at 10:00; Status DC Cefazolin Sodium/ Dextrose (Ancef 2gm Premix) 50 ml @ 100 mls/hr 1X PREOP IV Last administered on 06/22/16t 12:37; Start 06/22/16 at 10:15 Metoprolol Tartrate (Lopressor) 5 mg STK-MED ONCE .ROUTE ; Start 06/22/16 at 11: 05; Stop 06/22/16 at 11:06; Status DC Metoprolol Tartrate (Lopressor) 5 mg 1X ONCE IVP Last administered on t 11:12; Start 06/22/16 at 11:15; Stop 06/22/16 at 11:16; Status DC Ephedrine Sulfate 50 mg STK-MED ONCE IV ; Start 06/22/16 at 12:11; Stop at 12:12; Status DC Glycopyrrolate (Robinul) 1 mg STK-MED ONCE .ROUTE ; Start 06/22/16 at 12:40; Stop 06/22/16 at 12:41; Status DC Neostigmine Methylsulfate 5 mg STK-MED ONCE .ROUTE ; Start 06/22/16 at 12:40; Stop 06/22/16 at 12:41; Status DC Sevoflurane 60 ml 60 ml STK-MED ONCE IH ; Start 06/22/16 at 13:05; Stop at 13:06; Status DC Cefazolin Sodium/ Sodium Chloride (Ancef/Iv Sodium Chloride 0.9% 50ml) 50 ml @ 100 mls/hr Q8HRS IV Last administered on 06/23/16t 06:02; Start 06/22/16 at 23: 00 Active Scripts Active Reported Coumadin (Warfarin Sodium) 5 Mg Tablet 1 Tab PO DAILY Metoprolol Succinate ( Xl ) (Metoprolol Succinate) 25 Mg Tab.er.24h 25 Mg PO DAILY Vitals/I & O Vital Sign - Last 24 Hours 06/22/16 06/22/16 06/22/16 06/22/16 09:00 10:53 11:12 13:30 Temp 97.0 97.0 Pulse 96 82 80 Resp 15 B/P 87/57 101/61 101/61 Pulse Ox 95 O2 Delivery Room Air Room Air 06/22/16 06/22/16 06/22/16 06/22/16 13:30 14:06 14:30 15:00 Temp 97.9 97.9 Pulse 68 67 63 Resp 18 18 18 18 B/P 119/68 91/60 96/56 Pulse Ox 96 95 95 95 O2 Delivery Room Air Room Air Room Air Room Air O2 Flow Rate 2.0 06/22/16 06/22/16 06/22/16 06/22/16 15:29 16:00 16:00 16:00 Temp 98.3 98.3 Pulse 71 Resp 18 16 16 B/P 92/60 Pulse Ox 95 97 95 O2 Delivery Room Air Room Air Room Air Room Air 06/22/16 06/22/16 06/22/16 06/22/16 17:00 17:20 18:00 19:00 Temp 97.5 97.5 97.5 97.5 Pulse 76 83 74 Resp 16 16 16 20 B/P 99/62 94/57 103/68 Pulse Ox 94 94 93 O2 Delivery Room Air Room Air Room Air 06/22/16 06/22/16 06/22/16 06/22/16 19:15 20:00 20:42 21:00 Temp 98.3 98.3 Pulse 71 79 Resp 20 18 18 24 B/P 107/67 103/65 Pulse Ox 97 96 96 97 O2 Delivery Room Air Room Air Room Air Room Air 06/22/16 06/22/16 06/22/16 06/22/16 22:00 22:11 22:47 23:00 Pulse 72 64 Resp 24 24 24 15 B/P 98/67 102/68 Pulse Ox 96 95 95 93 O2 Delivery Room Air Room Air Room Air Room Air 06/23/16 06/23/16 06/23/16 06/23/16 00:00 00:07 01:00 01:11 Temp 98.0 98.0 Pulse 74 68 Resp 24 20 16 16 B/P 107/64 97/69 Pulse Ox 93 95 96 96 O2 Delivery Room Air Room Air Room Air Room Air 06/23/16 06/23/16 06/23/16 06/23/16 02:00 03:00 04:00 05:00 Temp 98.5 98.5 Pulse 72 71 70 66 Resp 13 13 22 B/P 87/56 95/57 84/69 97/63 Pulse Ox 93 94 96 94 O2 Delivery Room Air Room Air Room Air Room Air 06/23/16 06/23/16 06/23/16 06:00 07:00 07:58 Temp 98.4 98.4 Pulse 70 66 Resp 12 16 B/P 93/60 99/68 Pulse Ox 95 97 O2 Delivery Room Air Room Air Room Air Intake and Output 06/22/16 06/22/16 06/23/16 15:00 23:00 07:00 Intake Total 246 ml 1627.1 ml Output Total 615 ml 500 ml Balance -369 ml 1127.1 ml EDWARD AMBROSE MD Jun 23, 2016 08:32
[2016-06-23] MEDS: FAMOTIDINE 20 MG TABLET. PO SCH ×2 (08:53→21:23)
[2016-06-23] MEDS: METOPROLOL SUCC 24HR ER 25 MG TAB.ER.24H. PO SCH (08:54)
[2016-06-23] MEDS: ENOXAPARIN ** NOTE DOSE ** SYRINGE SQ SCH (09:00)
--- NOTE | 2016-06-23 10:12 | PDOC ---
PROGRESS NOTES Subjective Subjective seen at 0925 awake, alert no distress Objective Objective Vital Signs Date Time Temp Pulse Resp B/P Pulse Ox O2 Delivery O2 Flow Rate FiO2 06/23/16 08:58 90 20 101/62 97 Room Air 06/23/16 07:00 98.4 98.4 06/22/16 14:06 2.0 Intake and Output 06/23/16 07:00 Intake Total 1873.1 ml Output Total 1115 ml Balance 758.1 ml Intake Oral 500 ml IV Total 1373.1 ml Output Urine Total 1100 ml Drainage Total 15 ml Physical Exam General: Alert, Cooperative, No acute distress MUSCULOSKELETAL: Other (MIRANDA) Neuro: Normal speech Skin: Other (dressings intact, drain in place on the right) Assessment Assessment Problems Medical Problems: (1) Subdural hematoma Status: Acute (2) Supratherapeutic INR Status: Acute Plan Plan of Care keep in ICU continue drain today may resume Coumadin, hold lovenox until tomorrow SCD, ferdinand lovell Comment Review of Relevant I have reviewed the following items jordy (where applicable) has been applied. Labs Laboratory Tests Test 06/23/16 04:35 White Blood Count 7.8x10^3/uL (4.0-11.0) Red Blood Count 3.99x10^6/uL (4.30-5.70) Hemoglobin 12.0g/dL (13.0-17.5) Hematocrit 35.4% (39.0-53.0) Mean Corpuscular Volume 89fL (79-100) Mean Corpuscular Hemoglobin 30pg (25-35) Mean Corpuscular Hemoglobin Concent 34g/dL (31-37) Red Cell Distribution Width 13.2% (11.5-14.5) Platelet Count 223x10^3/uL (140-400) Neutrophils (%) (Auto) 82% (31-73) Lymphocytes (%) (Auto) 6% (24-48) Monocytes (%) (Auto) 12% (0-9) Eosinophils (%) (Auto) 0% (0-3) Basophils (%) (Auto) 0% (0-3) Neutrophils # (Auto) 6.4x10^3uL (1.8-7.7) Lymphocytes # (Auto) 0.5x10^3/uL (1.0-4.8) Monocytes # (Auto) 0.9x10^3/uL (0.0-1.1) Eosinophils # (Auto) 0.0x10^3/uL (0.0-0.7) Basophils # (Auto) 0.0x10^3/uL (0.0-0.2) Sodium Level 136mmol/L (136-145) Potassium Level 4.5mmol/L (3.5-5.1) Chloride Level 102mmol/L (98-107) Carbon Dioxide Level 27mmol/L (21-32) Anion Gap 7 (6-14) Blood Urea Nitrogen 21mg/dL (8-26) Creatinine 0.8mg/dL (0.7-1.3) Estimated GFR (Cockcroft-Gault) 102.3 Glucose Level 115mg/dL (70-99) Calcium Level 8.5mg/dL (8.5-10.1) Laboratory Tests Test 06/23/16 04:35 White Blood Count 7.8x10^3/uL (4.0-11.0) Red Blood Count 3.99x10^6/uL (4.30-5.70) Hemoglobin 12.0g/dL (13.0-17.5) Hematocrit 35.4% (39.0-53.0) Mean Corpuscular Volume 89fL (79-100) Mean Corpuscular Hemoglobin 30pg (25-35) Mean Corpuscular Hemoglobin Concent 34g/dL (31-37) Red Cell Distribution Width 13.2% (11.5-14.5) Platelet Count 223x10^3/uL (140-400) Neutrophils (%) (Auto) 82% (31-73) Lymphocytes (%) (Auto) 6% (24-48) Monocytes (%) (Auto) 12% (0-9) Eosinophils (%) (Auto) 0% (0-3) Basophils (%) (Auto) 0% (0-3) Neutrophils # (Auto) 6.4x10^3uL (1.8-7.7) Lymphocytes # (Auto) 0.5x10^3/uL (1.0-4.8) Monocytes # (Auto) 0.9x10^3/uL (0.0-1.1) Eosinophils # (Auto) 0.0x10^3/uL (0.0-0.7) Basophils # (Auto) 0.0x10^3/uL (0.0-0.2) Sodium Level 136mmol/L (136-145) Potassium Level 4.5mmol/L (3.5-5.1) Chloride Level 102mmol/L (98-107) Carbon Dioxide Level 27mmol/L (21-32) Anion Gap 7 (6-14) Blood Urea Nitrogen 21mg/dL (8-26) Creatinine 0.8mg/dL (0.7-1.3) Estimated GFR (Cockcroft-Gault) 102.3 Glucose Level 115mg/dL (70-99) Calcium Level 8.5mg/dL (8.5-10.1) Microbiology 06/13/16 Urine Culture - Final, Complete 06/13/16 Urine Culture Result 1 (GLENN) - Final, Complete Medications Current Medications Sodium Chloride (Iv Sodium Chloride 0.9% 1000ml Bag) 1,000 ml @ 100 mls/hr 1X ONCE IV Last administered on 06/13/16 13:45; Start 06/13/16 at 13:45; Stop at 23:44; Status DC Phytonadione (Mephyton) 10 mg 1X ONCE PO Last administered on 06/13/16 15:03; Start 06/13/16 at 15:00; Stop 06/13/16 at 15:01; Status DC Ondansetron HCl 4 mg 4 mg PRN Q8HRS PRN IV NAUSEA/VOMITING; Start 06/13/16 at 16 :15; Stop 06/14/16 at 16:14; Status DC Sodium Chloride (Iv Sodium Chloride 0.9% 1000ml Bag) 1,000 ml @ 100 mls/hr Q10H IV Last administered on 06/14/16 05:49; Start 06/13/16 at 16:10; Stop at 13:20; Status DC Morphine Sulfate 2 mg 1X ONCE IV Last administered on 06/13/16 18:08; Start at 18:30; Stop 06/13/16 at 18:31; Status DC Oxycodone/ Acetaminophen (Percocet 5/325) 1 tab PRN Q4HRS PRN PO PAIN Last administered on 06/22/16 19:15; Start 06/13/16 at 18:00 Oxycodone/ Acetaminophen (Percocet 5/325) 2 tab PRN Q4HRS PRN PO PAIN Last administered on 06/23/16 00:07; Start 06/13/16 at 18:00 Metoprolol Succinate (Toprol Xl) 25 mg DAILY PO Last administered on 06/23/16 08:54; Start 06/14/16 at 09:00 Lorazepam 2 mg 2 mg PRN Q4HRS PRN IV ANXIETY / AGITATION Last administered on 01:06; Start 06/13/16 at 19:45 Levetiracetam 500 mg/Sodium Chloride 105 ml @ 400 mls/hr PRN Q12HRS PRN IV SEIZURES; Start 06/13/16 at 19:45 Potassium Chloride/Sodium Chloride (KCl 20 Meq-0.45% Nacl) 1,000 ml @ 100 mls/ hr Q10H IV Last administered on 06/17/16 03:24; Start 06/14/16 at 13:30; Stop 06/17/16 at 12:24; Status DC Warfarin Sodium (Coumadin Per Pharmacy) 1 each PRN DAILY PRN MC SEE COMMENTS Last administered on 06/20/16 11:36; Start 06/14/16 at 16:00 Warfarin Sodium 2.5 mg 2.5 mg 1X WARF ONCE PO ; Start 06/14/16 at 17:00; Stop at 17:01; Status Cancel Bacitracin/Sodium Chloride (Iv Sodium Chloride 0.9% 1000ml Bag) 1,000 ml @ 1, 000 mls/hr 1X PERIOP ONCE IRR Last administered on 06/15/16 12:41; Start at 10:00; Stop 06/15/16 at 10:59; Status DC Ondansetron HCl (Zofran) 4 mg PRN Q6HRS PRN IV Nausea; Start 06/15/16 at 10:00; Stop 06/16/16 at 09:59; Status DC Fentanyl Citrate (Fentanyl 2ml Vial) 25 mcg PRN Q5MIN PRN IV MILD PAIN; Start 06/15/16 at 10:00; Stop 06/16/16 at 09:59; Status DC Fentanyl Citrate (Fentanyl 2ml Vial) 50 mcg PRN Q5MIN PRN IV MODERATE PAIN; Start 06/15/16 at 10:00; Stop 06/16/16 at 09:59; Status DC Morphine Sulfate 1 mg 1 mg PRN Q10MIN PRN IV SEVERE PAIN; Start 06/15/16 at 10: 00; Stop 06/16/16 at 09:59; Status DC Lactated Ringer's (Iv Lactated Ringers) 1,000 ml @ 30 mls/hr Q24H IV ; Start at 09:47; Stop 06/15/16 at 21:46; Status DC Lidocaine HCl 2 ml 1X PRN PRN ID IV START; Start 06/15/16 at 10:00; Stop at 09:59; Status DC Hydromorphone HCl (Dilaudid) 0.5 mg PRN Q10MIN PRN IV SEV PAIN,Second choice; Start 06/15/16 at 10:00; Stop 06/16/16 at 09:59; Status DC Prochlorperazine Edisylate (Compazine) 5 mg PACU PRN PRN IV NAUSEA; Start at 10:00; Stop 06/16/16 at 09:59; Status DC Phytonadione (Vitamin K) 2 mg 1X ONCE SQ Last administered on 06/15/16t 11:21; Start 06/15/16 at 09:45; Stop 06/15/16 at 09:57; Status DC Dexamethasone Sodium Phosphate (Decadron) 20 mg STK-MED ONCE .ROUTE ; Start 06/15 at 10:26; Stop 06/15/16 at 10:27; Status DC Ondansetron HCl (Zofran) 4 mg STK-MED ONCE .ROUTE ; Start 06/15/16 at 10:26; Stop 06/15/16 at 10:27; Status DC Rocuronium Bennett 50 mg 50 mg STK-MED ONCE .ROUTE ; Start 06/15/16 at 10:26; Stop 06/15/16 at 10:27; Status DC Propofol (Diprivan) 20 ml @ As Directed STK-MED ONCE IV ; Start 06/15/16 at 10:26 ; Stop 06/15/16 at 10:27; Status DC Lidocaine HCl 100 mg STK-MED ONCE .ROUTE ; Start 06/15/16 at 10:26; Stop 06/15/16 at 10:27; Status DC Fentanyl Citrate (Fentanyl 2ml Vial) 100 mcg STK-MED ONCE .ROUTE ; Start at 10:26; Stop 06/15/16 at 10:27; Status DC Thrombin 20,000 unit STK-MED ONCE TP Last administered on 06/15/16 12:41; Start 06/15/16 at 10:47; Stop 06/15/16 at 10:48; Status DC Gelatin (Gelfoam Size 100) 1 each STK-MED ONCE .ROUTE Last administered on 06/15 12:41; Start 06/15/16 at 10:48; Stop 06/15/16 at 10:49; Status DC Bupivacaine HCl/ Epinephrine Bitart (Sensorcaine-Epi 0.25%-1:279091 Mpf) 30 ml STK-MED ONCE .ROUTE Last administered on 06/15/16 12:41; Start 06/15/16 at 10:48 ; Stop 06/15/16 at 10:49; Status DC Cellulose 1 each STK-MED ONCE .ROUTE ; Start 06/15/16 at 10:49; Stop 06/15/16 at 10:50; Status DC Potassium Chloride 20 meq 20 meq 1X ONCE PO Last administered on 06/15/16 11: 21; Start 06/15/16 at 11:15; Stop 06/15/16 at 11:16; Status DC Cefazolin Sodium/ Dextrose (Ancef 2gm Premix) 50 ml @ 100 mls/hr 1X PREOP PRN IV PER PROTOCOL Last administered on 06/15/16 12:56; Start 06/16/16 at 06:00; Stop 06/16/16 at 18:00; Status DC Ephedrine Sulfate 50 mg STK-MED ONCE IV ; Start 06/15/16 at 13:04; Stop 06/15/16 at 13:05; Status DC Glycopyrrolate (Robinul) 1 mg STK-MED ONCE .ROUTE ; Start 06/15/16 at 13:39; Stop 06/15/16 at 13:40; Status DC Neostigmine Methylsulfate 5 mg STK-MED ONCE .ROUTE ; Start 06/15/16 at 13:39; Stop 06/15/16 at 13:40; Status DC Fentanyl Citrate (Fentanyl 2ml Vial) 100 mcg STK-MED ONCE .ROUTE ; Start at 13:55; Stop 06/15/16 at 13:56; Status DC Sevoflurane (Ultane) 30 ml STK-MED ONCE IH ; Start 06/15/16 at 13:55; Stop at 13:56; Status DC Sevoflurane (Ultane) 60 ml STK-MED ONCE IH ; Start 06/15/16 at 13:55; Stop at 13:56; Status DC Warfarin Sodium (Coumadin - No Dose Today) 1 each 1X WARF ONCE MC Last administered on 06/15/16 16:00; Start 06/15/16 at 16:00; Stop 06/15/16 at 16:01; Status DC Cefazolin Sodium/ Dextrose (Ancef 2gm Premix) 2 gm STK-MED ONCE IV ; Start at 13:00; Stop 06/16/16 at 08:05; Status DC Famotidine (Pepcid) 20 mg BID IVP ; Start 06/16/16 at 21:00; Stop 06/16/16 at 21 :00; Status DC Famotidine (Pepcid) 20 mg BID PO Last administered on 06/23/16 08:53; Start at 13:00 Warfarin Sodium (Coumadin) 5 mg 1X WARF ONCE PO Last administered on 18:15; Start 06/17/16 at 16:00; Stop 06/17/16 at 16:01; Status DC Warfarin Sodium (Coumadin) 7.5 mg 1X WARF ONCE PO Last administered on 16:25; Start 06/18/16 at 16:00; Stop 06/18/16 at 16:01; Status DC Ondansetron HCl (Zofran) 4 mg PRN Q6HRS PRN IV NAUSEA/VOMITING Last administered on 06/19/16 03:08; Start 06/19/16 at 03:00 Morphine Sulfate 2 mg PRN Q2HR PRN IV PAIN Last administered on 06/20/16 08:06 ; Start 06/19/16 at 03:00; Stop 06/20/16 at 10:14; Status DC Warfarin Sodium 7.5 mg 7.5 mg 1X WARF ONCE PO ; Start 06/19/16 at 16:00; Stop 06/19/16 at 16:01; Status DC Amino Acids/ Glycerin/ Electrolytes (Procalamine) 1,000 ml @ 75 mls/hr [id number] IV Last administered on 06/23/16 01:06; Start 06/19/16 at 16:15 Fentanyl Citrate (Fentanyl 2ml Vial) 50 mcg Q6HRS PRN IM BREAKTHROUGH PAIN; Start 06/20/16 at 10:15; Stop 06/20/16 at 11:08; Status DC Fentanyl Citrate (Fentanyl 2ml Vial) 50 mcg PRN Q6HRS PRN IV BREAKTHROUGH PAIN Last administered on 06/22/16 22:11; Start 06/20/16 at 11:15 Warfarin Sodium (Coumadin) 7.5 mg 1X WARF ONCE PO ; Start 06/20/16 at 16:00; Stop 06/20/16 at 16:01; Status DC Enoxaparin Sodium (Lovenox Per Pharmacy Treatment Dosing) 1 each PRN DAILY PRN MC SEE COMMENTS; Start 06/21/16 at 12:30; Stop 06/22/16 at 12:29; Status DC Enoxaparin Sodium 60 mg 60 mg Q12HR SQ Last administered on 06/22/16 21:13; Start 06/21/16 at 13:00 Bacitracin/Sodium Chloride (Iv Sodium Chloride 0.9% 1000ml Bag) 1,000 ml @ 1, 000 mls/hr 1X PERIOP ONCE IRR ; Start 06/22/16 at 09:00; Stop 06/22/16 at 09:59 ; Status DC Ondansetron HCl (Zofran) 4 mg PRN Q6HRS PRN IV Nausea; Start 06/22/16 at 09:00 ; Stop 06/22/16 at 18:00; Status DC Fentanyl Citrate (Fentanyl 2ml Vial) 25 mcg PRN Q5MIN PRN IV MILD PAIN; Start 06/22/16 at 09:00; Stop 06/22/16 at 18:00; Status DC Fentanyl Citrate (Fentanyl 2ml Vial) 50 mcg PRN Q5MIN PRN IV MODERATE PAIN Last administered on 06/22/16 17:20; Start 06/22/16 at 09:00; Stop 06/22/16 at 18:00; Status DC Morphine Sulfate 1 mg 1 mg PRN Q10MIN PRN IV SEVERE PAIN; Start 06/22/16 at 09: 00; Stop 06/22/16 at 18:00; Status DC Lactated Ringer's (Iv Lactated Ringers) 1,000 ml @ 30 mls/hr Q24H IV Last administered on 06/22/16 10:55; Start 06/22/16 at 08:52; Stop 06/22/16 at 20:51 ; Status DC Lidocaine HCl 2 ml 1X PRN PRN ID IV START; Start 06/22/16 at 09:00; Stop at 18:00; Status DC Hydromorphone HCl (Dilaudid) 0.5 mg PRN Q10MIN PRN IV SEV PAIN,Second choice; Start 06/22/16 at 09:00; Stop 06/22/16 at 18:00; Status DC Prochlorperazine Edisylate (Compazine) 5 mg PACU PRN PRN IV NAUSEA; Start 06/22 at 09:00; Stop 06/22/16 at 18:00; Status DC Bupivacaine HCl/ Epinephrine Bitart (Sensorcaine-Epi 0.25%-1:693263 Mpf) 30 ml STK-MED ONCE .ROUTE Last administered on 06/22/16 12:21; Start 06/22/16 at 09: 22; Stop 06/22/16 at 09:23; Status DC Cellulose 1 each STK-MED ONCE .ROUTE ; Start 06/22/16 at 09:22; Stop 06/22/16 at 09:23; Status DC Thrombin 20,000 unit STK-MED ONCE TP Last administered on 06/22/16 12:21; Start 06/22/16 at 09:22; Stop 06/22/16 at 09:23; Status DC Gelatin 1 each 1 each STK-MED ONCE .ROUTE Last administered on 06/22/16 12:21 ; Start 06/22/16 at 09:23; Stop 06/22/16 at 09:24; Status DC Propofol (Diprivan) 20 ml @ As Directed STK-MED ONCE IV ; Start 06/22/16 at 09: 57; Stop 06/22/16 at 09:58; Status DC Lidocaine HCl 100 mg STK-MED ONCE .ROUTE ; Start 06/22/16 at 09:57; Stop at 09:58; Status DC Rocuronium Bennett (Zemuron) 50 mg STK-MED ONCE .ROUTE ; Start 06/22/16 at 09:57 ; Stop 06/22/16 at 09:58; Status DC Ondansetron HCl (Zofran) 4 mg STK-MED ONCE .ROUTE ; Start 06/22/16 at 09:58; Stop 06/22/16 at 09:59; Status DC Dexamethasone Sodium Phosphate (Decadron) 20 mg STK-MED ONCE .ROUTE ; Start at 09:58; Stop 06/22/16 at 09:59; Status DC Fentanyl Citrate 100 mcg 100 mcg STK-MED ONCE .ROUTE ; Start 06/22/16 at 09:59; Stop 06/22/16 at 10:00; Status DC Cefazolin Sodium/ Dextrose (Ancef 2gm Premix) 50 ml @ 100 mls/hr 1X PREOP IV Last administered on 06/22/16t 12:37; Start 06/22/16 at 10:15 Metoprolol Tartrate (Lopressor) 5 mg STK-MED ONCE .ROUTE ; Start 06/22/16 at 11: 05; Stop 06/22/16 at 11:06; Status DC Metoprolol Tartrate (Lopressor) 5 mg 1X ONCE IVP Last administered on t 11:12; Start 06/22/16 at 11:15; Stop 06/22/16 at 11:16; Status DC Ephedrine Sulfate 50 mg STK-MED ONCE IV ; Start 06/22/16 at 12:11; Stop at 12:12; Status DC Glycopyrrolate (Robinul) 1 mg STK-MED ONCE .ROUTE ; Start 06/22/16 at 12:40; Stop 06/22/16 at 12:41; Status DC Neostigmine Methylsulfate 5 mg STK-MED ONCE .ROUTE ; Start 06/22/16 at 12:40; Stop 06/22/16 at 12:41; Status DC Sevoflurane 60 ml 60 ml STK-MED ONCE IH ; Start 06/22/16 at 13:05; Stop at 13:06; Status DC Cefazolin Sodium/ Sodium Chloride (Ancef/Iv Sodium Chloride 0.9% 50ml) 50 ml @ 100 mls/hr Q8HRS IV Last administered on 06/23/16t 06:02; Start 06/22/16 at 23: 00 Active Scripts Active Reported Coumadin (Warfarin Sodium) 5 Mg Tablet 1 Tab PO DAILY Metoprolol Succinate ( Xl ) (Metoprolol Succinate) 25 Mg Tab.er.24h 25 Mg PO DAILY Vitals/I & O Vital Sign - Last 24 Hours 06/22/16 06/22/16 06/22/16 06/22/16 10:53 11:12 13:30 13:30 Temp 97.0 97.9 97.0 97.9 Pulse 82 80 68 Resp 15 18 B/P 101/61 101/61 119/68 Pulse Ox 95 96 O2 Delivery Room Air Room Air Room Air 06/22/16 06/22/16 06/22/16 06/22/16 14:06 14:30 15:00 15:29 Pulse 67 63 Resp 18 18 18 18 B/P 91/60 96/56 Pulse Ox 95 95 95 95 O2 Delivery Room Air Room Air Room Air Room Air O2 Flow Rate 2.0 06/22/16 06/22/16 06/22/16 06/22/16 16:00 16:00 16:00 17:00 Temp 98.3 97.5 98.3 97.5 Pulse 71 76 Resp 16 16 16 B/P 92/60 99/62 Pulse Ox 97 95 94 O2 Delivery Room Air Room Air Room Air Room Air 06/22/16 06/22/16 06/22/16 06/22/16 17:20 18:00 19:00 19:15 Temp 97.5 97.5 Pulse 83 74 Resp 16 16 20 20 B/P 94/57 103/68 Pulse Ox 94 93 97 O2 Delivery Room Air Room Air Room Air 06/22/16 06/22/16 06/22/16 06/22/16 20:00 20:42 21:00 22:00 Temp 98.3 98.3 Pulse 71 79 72 Resp 18 18 24 24 B/P 107/67 103/65 98/67 Pulse Ox 96 96 97 96 O2 Delivery Room Air Room Air Room Air Room Air 06/22/16 06/22/16 06/22/16 1/17/17 22:11 22:47 23:00 00:00 Temp 98.0 98.0 Pulse 64 74 Resp 24 24 15 24 B/P 102/68 107/64 Pulse Ox 95 95 93 93 O2 Delivery Room Air Room Air Room Air Room Air 06/23/16 06/23/16 06/23/16 06/23/16 00:07 01:00 01:11 02:00 Pulse 68 72 Resp 20 16 16 13 B/P 97/69 87/56 Pulse Ox 95 96 96 93 O2 Delivery Room Air Room Air Room Air Room Air 06/23/16 06/23/16 06/23/16 06/23/16 03:00 04:00 05:00 06:00 Temp 98.5 98.5 Pulse 71 70 66 70 Resp 13 13 22 12 B/P 95/57 84/69 97/63 93/60 Pulse Ox 94 96 94 95 O2 Delivery Room Air Room Air Room Air Room Air 06/23/16 06/23/16 06/23/16 06/23/16 07:00 07:58 08:00 08:54 Temp 98.4 98.4 Pulse 66 80 66 Resp 16 B/P 99/68 102/64 102/64 Pulse Ox 97 97 O2 Delivery Room Air Room Air Room Air 06/23/16 08:58 Pulse 90 Resp 20 B/P 101/62 Pulse Ox 97 O2 Delivery Room Air Intake and Output 06/22/16 06/22/16 06/23/16 15:00 23:00 07:00 Intake Total 246 ml 1627.1 ml Output Total 615 ml 500 ml Balance -369 ml 1127.1 ml CONNIE ESTEVEZ MD Jun 23, 2016 10:12
[2016-06-23 12:21] LABS: INR 1.2 (0.8-1.1); PROTHROMBIN TIME PATIENT 14.3 SEC (11.7-14.0)
[2016-06-23] MEDS ORDERED: WARFARIN 7.5 MG TABLET. PO ONE (16:00)
--- NOTE | 2016-06-23 18:52 | PDOC ---
PROGRESS NOTES Chief Complaint Chief Complaint headaches , b/l subdural hematoma - Acute bilateral subdural hematoma, s/p nela hole on L - Confusion and more lethargy, - Metabolic encephalopathy, improved - Marfan's syndrome; with hx of aortic and mitral valve replacements - L eye blindness - HTN, stable - Dysphagia, on NPO status History of Present Illness History of Present Illness Pt had his second craniotomy yesterday MIRTHA Neurosurgeon MIRTHA RN Patient lying down in bed when evaluated this AM. DW sister and brother Pt is weak and a little confused Vitals Vitals Vital Signs Date Time Temp Pulse Resp B/P Pulse Ox O2 Delivery O2 Flow Rate FiO2 06/23/16 17:00 81 16 95/62 96 Room Air 06/23/16 16:00 98.4 98.4 06/22/16 14:06 2.0 Physical Exam General: Other (Confused and weak) Heart: Regular rate, Normal S1 Lungs: Clear, Other Abdomen: Normal bowel sounds Extremities: No clubbing, No cyanosis, No edema Skin: No rashes, No breakdown, Other (dressings intact, drain in place on the right) Labs LABS Laboratory Tests Test 06/23/16 04:35 06/23/16 11:55 White Blood Count 7.8x10^3/uL (4.0-11.0) Red Blood Count 3.99x10^6/uL (4.30-5.70) Hemoglobin 12.0g/dL (13.0-17.5) Hematocrit 35.4% (39.0-53.0) Mean Corpuscular Volume 89fL (79-100) Mean Corpuscular Hemoglobin 30pg (25-35) Mean Corpuscular Hemoglobin Concent 34g/dL (31-37) Red Cell Distribution Width 13.2% (11.5-14.5) Platelet Count 223x10^3/uL (140-400) Neutrophils (%) (Auto) 82% (31-73) Lymphocytes (%) (Auto) 6% (24-48) Monocytes (%) (Auto) 12% (0-9) Eosinophils (%) (Auto) 0% (0-3) Basophils (%) (Auto) 0% (0-3) Neutrophils # (Auto) 6.4x10^3uL (1.8-7.7) Lymphocytes # (Auto) 0.5x10^3/uL (1.0-4.8) Monocytes # (Auto) 0.9x10^3/uL (0.0-1.1) Eosinophils # (Auto) 0.0x10^3/uL (0.0-0.7) Basophils # (Auto) 0.0x10^3/uL (0.0-0.2) Sodium Level 136mmol/L (136-145) Potassium Level 4.5mmol/L (3.5-5.1) Chloride Level 102mmol/L (98-107) Carbon Dioxide Level 27mmol/L (21-32) Anion Gap 7 (6-14) Blood Urea Nitrogen 21mg/dL (8-26) Creatinine 0.8mg/dL (0.7-1.3) Estimated GFR (Cockcroft-Gault) 102.3 Glucose Level 115mg/dL (70-99) Calcium Level 8.5mg/dL (8.5-10.1) Prothrombin Time 14.3SEC (11.7-14.0) Prothromb Time International Ratio 1.2 (0.8-1.1) Review of Systems Review of Systems co weakness co pain Assessment and Plan Assessmemt and Plan Problems Medical Problems: (1) Subdural hematoma Status: Acute (2) Supratherapeutic INR Status: Acute - Acute bilateral subdural hematoma, s/p nela hole on L and the R yesterday - Confusion and more lethargy, - Metabolic encephalopathy, improved - Marfan's syndrome; with hx of aortic and mitral valve replacements - L eye blindness - HTN, stable - Dysphagia, on NPO status Plan ICU monitoring Wound care of craniotomy nela holes Recheck labs LTAC eval May need LTC placement after LTAC? Family agrees Home meds Total time 32 minutes Problems: Comment Review of Relevant I have reviewed the following items jordy (where applicable) has been applied. Labs Laboratory Tests Test 06/23/16 04:35 06/23/16 11:55 White Blood Count 7.8x10^3/uL (4.0-11.0) Red Blood Count 3.99x10^6/uL (4.30-5.70) Hemoglobin 12.0g/dL (13.0-17.5) Hematocrit 35.4% (39.0-53.0) Mean Corpuscular Volume 89fL (79-100) Mean Corpuscular Hemoglobin 30pg (25-35) Mean Corpuscular Hemoglobin Concent 34g/dL (31-37) Red Cell Distribution Width 13.2% (11.5-14.5) Platelet Count 223x10^3/uL (140-400) Neutrophils (%) (Auto) 82% (31-73) Lymphocytes (%) (Auto) 6% (24-48) Monocytes (%) (Auto) 12% (0-9) Eosinophils (%) (Auto) 0% (0-3) Basophils (%) (Auto) 0% (0-3) Neutrophils # (Auto) 6.4x10^3uL (1.8-7.7) Lymphocytes # (Auto) 0.5x10^3/uL (1.0-4.8) Monocytes # (Auto) 0.9x10^3/uL (0.0-1.1) Eosinophils # (Auto) 0.0x10^3/uL (0.0-0.7) Basophils # (Auto) 0.0x10^3/uL (0.0-0.2) Sodium Level 136mmol/L (136-145) Potassium Level 4.5mmol/L (3.5-5.1) Chloride Level 102mmol/L (98-107) Carbon Dioxide Level 27mmol/L (21-32) Anion Gap 7 (6-14) Blood Urea Nitrogen 21mg/dL (8-26) Creatinine 0.8mg/dL (0.7-1.3) Estimated GFR (Cockcroft-Gault) 102.3 Glucose Level 115mg/dL (70-99) Calcium Level 8.5mg/dL (8.5-10.1) Prothrombin Time 14.3SEC (11.7-14.0) Prothromb Time International Ratio 1.2 (0.8-1.1) Laboratory Tests Test 06/23/16 04:35 06/23/16 11:55 White Blood Count 7.8x10^3/uL (4.0-11.0) Red Blood Count 3.99x10^6/uL (4.30-5.70) Hemoglobin 12.0g/dL (13.0-17.5) Hematocrit 35.4% (39.0-53.0) Mean Corpuscular Volume 89fL (79-100) Mean Corpuscular Hemoglobin 30pg (25-35) Mean Corpuscular Hemoglobin Concent 34g/dL (31-37) Red Cell Distribution Width 13.2% (11.5-14.5) Platelet Count 223x10^3/uL (140-400) Neutrophils (%) (Auto) 82% (31-73) Lymphocytes (%) (Auto) 6% (24-48) Monocytes (%) (Auto) 12% (0-9) Eosinophils (%) (Auto) 0% (0-3) Basophils (%) (Auto) 0% (0-3) Neutrophils # (Auto) 6.4x10^3uL (1.8-7.7) Lymphocytes # (Auto) 0.5x10^3/uL (1.0-4.8) Monocytes # (Auto) 0.9x10^3/uL (0.0-1.1) Eosinophils # (Auto) 0.0x10^3/uL (0.0-0.7) Basophils # (Auto) 0.0x10^3/uL (0.0-0.2) Sodium Level 136mmol/L (136-145) Potassium Level 4.5mmol/L (3.5-5.1) Chloride Level 102mmol/L (98-107) Carbon Dioxide Level 27mmol/L (21-32) Anion Gap 7 (6-14) Blood Urea Nitrogen 21mg/dL (8-26) Creatinine 0.8mg/dL (0.7-1.3) Estimated GFR (Cockcroft-Gault) 102.3 Glucose Level 115mg/dL (70-99) Calcium Level 8.5mg/dL (8.5-10.1) Prothrombin Time 14.3SEC (11.7-14.0) Prothromb Time International Ratio 1.2 (0.8-1.1) Microbiology 06/13/16 Urine Culture - Final, Complete 06/13/16 Urine Culture Result 1 (GLENN) - Final, Complete Medications Current Medications Sodium Chloride (Iv Sodium Chloride 0.9% 1000ml Bag) 1,000 ml @ 100 mls/hr 1X ONCE IV Last administered on 06/13/16 13:45; Start 06/13/16 at 13:45; Stop at 23:44; Status DC Phytonadione (Mephyton) 10 mg 1X ONCE PO Last administered on 06/13/16 15:03; Start 06/13/16 at 15:00; Stop 06/13/16 at 15:01; Status DC Ondansetron HCl 4 mg 4 mg PRN Q8HRS PRN IV NAUSEA/VOMITING; Start 06/13/16 at 16 :15; Stop 06/14/16 at 16:14; Status DC Sodium Chloride (Iv Sodium Chloride 0.9% 1000ml Bag) 1,000 ml @ 100 mls/hr Q10H IV Last administered on 06/14/16 05:49; Start 06/13/16 at 16:10; Stop at 13:20; Status DC Morphine Sulfate 2 mg 1X ONCE IV Last administered on 06/13/16 18:08; Start at 18:30; Stop 06/13/16 at 18:31; Status DC Oxycodone/ Acetaminophen (Percocet 5/325) 1 tab PRN Q4HRS PRN PO PAIN Last administered on 06/22/16 19:15; Start 06/13/16 at 18:00 Oxycodone/ Acetaminophen (Percocet 5/325) 2 tab PRN Q4HRS PRN PO PAIN Last administered on 06/23/16 00:07; Start 06/13/16 at 18:00 Metoprolol Succinate (Toprol Xl) 25 mg DAILY PO Last administered on 06/23/16 08:54; Start 06/14/16 at 09:00 Lorazepam 2 mg 2 mg PRN Q4HRS PRN IV ANXIETY / AGITATION Last administered on 01:06; Start 06/13/16 at 19:45 Levetiracetam 500 mg/Sodium Chloride 105 ml @ 400 mls/hr PRN Q12HRS PRN IV SEIZURES; Start 06/13/16 at 19:45 Potassium Chloride/Sodium Chloride (KCl 20 Meq-0.45% Nacl) 1,000 ml @ 100 mls/ hr Q10H IV Last administered on 06/17/16 03:24; Start 06/14/16 at 13:30; Stop 06/17/16 at 12:24; Status DC Warfarin Sodium (Coumadin Per Pharmacy) 1 each PRN DAILY PRN MC SEE COMMENTS Last administered on 06/23/16 10:55; Start 06/14/16 at 16:00 Warfarin Sodium 2.5 mg 2.5 mg 1X WARF ONCE PO ; Start 06/14/16 at 17:00; Stop at 17:01; Status Cancel Bacitracin/Sodium Chloride (Iv Sodium Chloride 0.9% 1000ml Bag) 1,000 ml @ 1, 000 mls/hr 1X PERIOP ONCE IRR Last administered on 06/15/16 12:41; Start at 10:00; Stop 06/15/16 at 10:59; Status DC Ondansetron HCl (Zofran) 4 mg PRN Q6HRS PRN IV Nausea; Start 06/15/16 at 10:00; Stop 06/16/16 at 09:59; Status DC Fentanyl Citrate (Fentanyl 2ml Vial) 25 mcg PRN Q5MIN PRN IV MILD PAIN; Start 06/15/16 at 10:00; Stop 06/16/16 at 09:59; Status DC Fentanyl Citrate (Fentanyl 2ml Vial) 50 mcg PRN Q5MIN PRN IV MODERATE PAIN; Start 06/15/16 at 10:00; Stop 06/16/16 at 09:59; Status DC Morphine Sulfate 1 mg 1 mg PRN Q10MIN PRN IV SEVERE PAIN; Start 06/15/16 at 10: 00; Stop 06/16/16 at 09:59; Status DC Lactated Ringer's (Iv Lactated Ringers) 1,000 ml @ 30 mls/hr Q24H IV ; Start at 09:47; Stop 06/15/16 at 21:46; Status DC Lidocaine HCl 2 ml 1X PRN PRN ID IV START; Start 06/15/16 at 10:00; Stop at 09:59; Status DC Hydromorphone HCl (Dilaudid) 0.5 mg PRN Q10MIN PRN IV SEV PAIN,Second choice; Start 06/15/16 at 10:00; Stop 06/16/16 at 09:59; Status DC Prochlorperazine Edisylate (Compazine) 5 mg PACU PRN PRN IV NAUSEA; Start at 10:00; Stop 06/16/16 at 09:59; Status DC Phytonadione (Vitamin K) 2 mg 1X ONCE SQ Last administered on 06/15/16 11:21; Start 06/15/16 at 09:45; Stop 06/15/16 at 09:57; Status DC Dexamethasone Sodium Phosphate (Decadron) 20 mg STK-MED ONCE .ROUTE ; Start 06/15 at 10:26; Stop 06/15/16 at 10:27; Status DC Ondansetron HCl (Zofran) 4 mg STK-MED ONCE .ROUTE ; Start 06/15/16 at 10:26; Stop 06/15/16 at 10:27; Status DC Rocuronium [place] 50 mg 50 mg STK-MED ONCE .ROUTE ; Start 06/15/16 at 10:26; Stop 06/15/16 at 10:27; Status DC Propofol (Diprivan) 20 ml @ As Directed STK-MED ONCE IV ; Start 06/15/16 at 10:26 ; Stop 06/15/16 at 10:27; Status DC Lidocaine HCl 100 mg STK-MED ONCE .ROUTE ; Start 06/15/16 at 10:26; Stop 06/15/16 at 10:27; Status DC Fentanyl Citrate (Fentanyl 2ml Vial) 100 mcg STK-MED ONCE .ROUTE ; Start at 10:26; Stop 06/15/16 at 10:27; Status DC Thrombin 20,000 unit STK-MED ONCE TP Last administered on 06/15/16 12:41; Start 06/15/16 at 10:47; Stop 06/15/16 at 10:48; Status DC Gelatin (Gelfoam Size 100) 1 each STK-MED ONCE .ROUTE Last administered on 06/15 12:41; Start 06/15/16 at 10:48; Stop 06/15/16 at 10:49; Status DC Bupivacaine HCl/ Epinephrine Bitart (Sensorcaine-Epi 0.25%-1:007836 Mpf) 30 ml STK-MED ONCE .ROUTE Last administered on 06/15/16 12:41; Start 06/15/16 at 10:48 ; Stop 06/15/16 at 10:49; Status DC Cellulose 1 each STK-MED ONCE .ROUTE ; Start 06/15/16 at 10:49; Stop 06/15/16 at 10:50; Status DC Potassium Chloride 20 meq 20 meq 1X ONCE PO Last administered on 06/15/16 11: 21; Start 06/15/16 at 11:15; Stop 06/15/16 at 11:16; Status DC Cefazolin Sodium/ Dextrose (Ancef 2gm Premix) 50 ml @ 100 mls/hr 1X PREOP PRN IV PER PROTOCOL Last administered on 06/15/16 12:56; Start 06/16/16 at 06:00; Stop 06/16/16 at 18:00; Status DC Ephedrine Sulfate 50 mg STK-MED ONCE IV ; Start 06/15/16 at 13:04; Stop 06/15/16 at 13:05; Status DC Glycopyrrolate (Robinul) 1 mg STK-MED ONCE .ROUTE ; Start 06/15/16 at 13:39; Stop 06/15/16 at 13:40; Status DC Neostigmine Methylsulfate 5 mg STK-MED ONCE .ROUTE ; Start 06/15/16 at 13:39; Stop 06/15/16 at 13:40; Status DC Fentanyl Citrate (Fentanyl 2ml Vial) 100 mcg STK-MED ONCE .ROUTE ; Start at 13:55; Stop 06/15/16 at 13:56; Status DC Sevoflurane (Ultane) 30 ml STK-MED ONCE IH ; Start 06/15/16 at 13:55; Stop at 13:56; Status DC Sevoflurane (Ultane) 60 ml STK-MED ONCE IH ; Start 06/15/16 at 13:55; Stop at 13:56; Status DC Warfarin Sodium (Coumadin - No Dose Today) 1 each 1X WARF ONCE MC Last administered on 06/15/16 16:00; Start 06/15/16 at 16:00; Stop 06/15/16 at 16:01; Status DC Cefazolin Sodium/ Dextrose (Ancef 2gm Premix) 2 gm STK-MED ONCE IV ; Start at 13:00; Stop 06/16/16 at 08:05; Status DC Famotidine (Pepcid) 20 mg BID IVP ; Start 06/16/16 at 21:00; Stop 06/16/16 at 21 :00; Status DC Famotidine (Pepcid) 20 mg BID PO Last administered on 06/23/16 08:53; Start at 13:00 Warfarin Sodium (Coumadin) 5 mg 1X WARF ONCE PO Last administered on 18:15; Start 06/17/16 at 16:00; Stop 06/17/16 at 16:01; Status DC Warfarin Sodium (Coumadin) 7.5 mg 1X WARF ONCE PO Last administered on 16:25; Start 06/18/16 at 16:00; Stop 06/18/16 at 16:01; Status DC Ondansetron HCl (Zofran) 4 mg PRN Q6HRS PRN IV NAUSEA/VOMITING Last administered on 06/19/16 03:08; Start 06/19/16 at 03:00 Morphine Sulfate 2 mg PRN Q2HR PRN IV PAIN Last administered on 06/20/16 08:06 ; Start 06/19/16 at 03:00; Stop 06/20/16 at 10:14; Status DC Warfarin Sodium 7.5 mg 7.5 mg 1X WARF ONCE PO ; Start 06/19/16 at 16:00; Stop 06/19/16 at 16:01; Status DC Amino Acids/ Glycerin/ Electrolytes (Procalamine) 1,000 ml @ 75 mls/hr [id number] IV Last administered on 06/23/16 01:06; Start 06/19/16 at 16:15; Stop at 10:24; Status DC Fentanyl Citrate (Fentanyl 2ml Vial) 50 mcg Q6HRS PRN IM BREAKTHROUGH PAIN; Start 06/20/16 at 10:15; Stop 06/20/16 at 11:08; Status DC Fentanyl Citrate (Fentanyl 2ml Vial) 50 mcg PRN Q6HRS PRN IV BREAKTHROUGH PAIN Last administered on 06/22/16 22:11; Start 06/20/16 at 11:15 Warfarin Sodium (Coumadin) 7.5 mg 1X WARF ONCE PO ; Start 06/20/16 at 16:00; Stop 06/20/16 at 16:01; Status DC Enoxaparin Sodium (Lovenox Per Pharmacy Treatment Dosing) 1 each PRN DAILY PRN MC SEE COMMENTS; Start 06/21/16 at 12:30; Stop 06/22/16 at 12:29; Status DC Enoxaparin Sodium 60 mg 60 mg Q12HR SQ Last administered on 06/22/16 21:13; Start 06/21/16 at 13:00; Stop 06/23/16 at 10:24; Status DC Bacitracin/Sodium Chloride (Iv Sodium Chloride 0.9% 1000ml Bag) 1,000 ml @ 1, 000 mls/hr 1X PERIOP ONCE IRR ; Start 06/22/16 at 09:00; Stop 06/22/16 at 09:59 ; Status DC Ondansetron HCl (Zofran) 4 mg PRN Q6HRS PRN IV Nausea; Start 06/22/16 at 09:00 ; Stop 06/22/16 at 18:00; Status DC Fentanyl Citrate (Fentanyl 2ml Vial) 25 mcg PRN Q5MIN PRN IV MILD PAIN; Start 06/22/16 at 09:00; Stop 06/22/16 at 18:00; Status DC Fentanyl Citrate (Fentanyl 2ml Vial) 50 mcg PRN Q5MIN PRN IV MODERATE PAIN Last administered on 06/22/16 17:20; Start 06/22/16 at 09:00; Stop 06/22/16 at 18:00; Status DC Morphine Sulfate 1 mg 1 mg PRN Q10MIN PRN IV SEVERE PAIN; Start 06/22/16 at 09: 00; Stop 06/22/16 at 18:00; Status DC Lactated Ringer's (Iv Lactated Ringers) 1,000 ml @ 30 mls/hr Q24H IV Last administered on 06/22/16 10:55; Start 06/22/16 at 08:52; Stop 06/22/16 at 20:51 ; Status DC Lidocaine HCl 2 ml 1X PRN PRN ID IV START; Start 06/22/16 at 09:00; Stop at 18:00; Status DC Hydromorphone HCl (Dilaudid) 0.5 mg PRN Q10MIN PRN IV SEV PAIN,Second choice; Start 06/22/16 at 09:00; Stop 06/22/16 at 18:00; Status DC Prochlorperazine Edisylate (Compazine) 5 mg PACU PRN PRN IV NAUSEA; Start 06/22 at 09:00; Stop 06/22/16 at 18:00; Status DC Bupivacaine HCl/ Epinephrine Bitart (Sensorcaine-Epi 0.25%-1:185494 Mpf) 30 ml STK-MED ONCE .ROUTE Last administered on 06/22/16 12:21; Start 06/22/16 at 09: 22; Stop 06/22/16 at 09:23; Status DC Cellulose 1 each STK-MED ONCE .ROUTE ; Start 06/22/16 at 09:22; Stop 06/22/16 at 09:23; Status DC Thrombin 20,000 unit STK-MED ONCE TP Last administered on 06/22/16 12:21; Start 06/22/16 at 09:22; Stop 06/22/16 at 09:23; Status DC Gelatin 1 each 1 each STK-MED ONCE .ROUTE Last administered on 06/22/16 12:21 ; Start 06/22/16 at 09:23; Stop 06/22/16 at 09:24; Status DC Propofol (Diprivan) 20 ml @ As Directed STK-MED ONCE IV ; Start 06/22/16 at 09: 57; Stop 06/22/16 at 09:58; Status DC Lidocaine HCl 100 mg STK-MED ONCE .ROUTE ; Start 06/22/16 at 09:57; Stop at 09:58; Status DC Rocuronium [place] (Zemuron) 50 mg STK-MED ONCE .ROUTE ; Start 06/22/16 at 09:57 ; Stop 06/22/16 at 09:58; Status DC Ondansetron HCl (Zofran) 4 mg STK-MED ONCE .ROUTE ; Start 06/22/16 at 09:58; Stop 06/22/16 at 09:59; Status DC Dexamethasone Sodium Phosphate (Decadron) 20 mg STK-MED ONCE .ROUTE ; Start at 09:58; Stop 06/22/16 at 09:59; Status DC Fentanyl Citrate 100 mcg 100 mcg STK-MED ONCE .ROUTE ; Start 06/22/16 at 09:59; Stop 06/22/16 at 10:00; Status DC Cefazolin Sodium/ Dextrose (Ancef 2gm Premix) 50 ml @ 100 mls/hr 1X PREOP IV Last administered on 06/22/16 12:37; Start 06/22/16 at 10:15 Metoprolol Tartrate (Lopressor) 5 mg STK-MED ONCE .ROUTE ; Start 06/22/16 at 11: 05; Stop 06/22/16 at 11:06; Status DC Metoprolol Tartrate (Lopressor) 5 mg 1X ONCE IVP Last administered on 11:12; Start 06/22/16 at 11:15; Stop 06/22/16 at 11:16; Status DC Ephedrine Sulfate 50 mg STK-MED ONCE IV ; Start 06/22/16 at 12:11; Stop at 12:12; Status DC Glycopyrrolate (Robinul) 1 mg STK-MED ONCE .ROUTE ; Start 06/22/16 at 12:40; Stop 06/22/16 at 12:41; Status DC Neostigmine Methylsulfate 5 mg STK-MED ONCE .ROUTE ; Start 06/22/16 at 12:40; Stop 06/22/16 at 12:41; Status DC Sevoflurane 60 ml 60 ml STK-MED ONCE IH ; Start 06/22/16 at 13:05; Stop at 13:06; Status DC Cefazolin Sodium/ Sodium Chloride (Ancef/Iv Sodium Chloride 0.9% 50ml) 50 ml @ 100 mls/hr Q8HRS IV Last administered on 06/23/16 13:00; Start 06/22/16 at 23: 00 Warfarin Sodium (Coumadin) 7.5 mg 1X WARF ONCE PO Last administered on 17:06; Start 06/23/16 at 16:00; Stop 06/23/16 at 16:01; Status DC Active Scripts Active Reported Coumadin (Warfarin Sodium) 5 Mg Tablet 1 Tab PO DAILY Metoprolol Succinate ( Xl ) (Metoprolol Succinate) 25 Mg Tab.er.24h 25 Mg PO DAILY Vitals/I & O Vital Sign - Last 24 Hours 06/22/16 06/22/16 06/22/16 06/22/16 19:00 19:15 20:00 20:42 Temp 98.3 98.3 Pulse 74 71 Resp 20 20 18 18 B/P 103/68 107/67 Pulse Ox 93 97 96 96 O2 Delivery Room Air Room Air Room Air Room Air 06/22/16 06/22/16 06/22/16 06/22/16 21:00 22:00 22:11 22:47 Pulse 79 72 Resp 24 24 24 24 B/P 103/65 98/67 Pulse Ox 97 96 95 95 O2 Delivery Room Air Room Air Room Air Room Air 06/22/16 06/23/16 06/23/16 06/23/16 23:00 00:00 00:07 01:00 Temp 98.0 98.0 Pulse 64 74 68 Resp 15 24 20 16 B/P 102/68 107/64 97/69 Pulse Ox 93 93 95 96 O2 Delivery Room Air Room Air Room Air Room Air 06/23/16 06/23/16 06/23/16 06/23/16 01:11 02:00 03:00 04:00 Temp 98.5 98.5 Pulse 72 71 70 Resp 16 13 13 13 B/P 87/56 95/57 84/69 Pulse Ox 96 93 94 96 O2 Delivery Room Air Room Air Room Air Room Air 06/23/16 06/23/16 06/23/16 06/23/16 05:00 06:00 07:00 07:58 Temp 98.4 98.4 Pulse 66 70 66 Resp 22 12 16 B/P 97/63 93/60 99/68 Pulse Ox 94 95 97 O2 Delivery Room Air Room Air Room Air Room Air 06/23/16 06/23/16 06/23/16 06/23/16 08:00 08:54 08:58 10:00 Pulse 80 66 90 80 Resp 16 20 20 B/P 102/64 102/64 101/62 99/62 Pulse Ox 97 97 97 O2 Delivery Room Air Room Air Room Air 06/23/16 06/23/16 06/23/16 06/23/16 11:08 12:00 12:00 13:00 Temp 98.3 98.3 Pulse 82 80 82 Resp 20 18 18 B/P 102/64 99/63 100/59 Pulse Ox 94 96 94 O2 Delivery Room Air Room Air Room Air Room Air 06/23/16 06/23/16 06/23/16 06/23/16 14:00 15:00 16:00 16:00 Temp 98.4 98.4 Pulse 80 72 86 Resp 18 12 12 B/P 90/54 90/58 96/57 Pulse Ox 96 96 96 O2 Delivery Room Air Room Air Room Air Room Air 06/23/16 17:00 Pulse 81 Resp 16 B/P 95/62 Pulse Ox 96 O2 Delivery Room Air Intake and Output 06/22/16 06/22/16 06/23/16 15:00 23:00 07:00 Intake Total 246 ml 1627.1 ml Output Total 615 ml 500 ml Balance -369 ml 1127.1 ml CHRISTEL GRIFFITHS III DO Jun 23, 2016 18:52
[2016-06-24] VITALS (19 sets, daily range): BP systolic 81–115; BP diastolic 49–70
[2016-06-24 04:41] LABS: BASO # 0.1 x10^3/uL (0.0-0.2); BASO % 1 % (0-3); EOS % 4 % (0-3); HEMATOCRIT 35.4 % (39.0-53.0); HEMOGLOBIN 12.1 g/dL (13.0-17.5); LYMPH # 1.6 x10^3/uL (1.0-4.8); LYMPH % 23 % (24-48); MEAN CORPUSCULAR HEMOGLOBIN 30 pg (25-35); MEAN CORPUSCULAR HGB CONC 34 g/dL (31-37); MEAN CORPUSCULAR VOLUME 88 fL (79-100); MONO % 12 % (0-9); NEUT % 60 % (31-73); PLATELET COUNT 233 x10^3/uL (140-400); RED BLOOD COUNT 4.04 x10^6/uL (4.30-5.70); RED CELL DISTRIBUTION WIDTH 13.2 % (11.5-14.5); WHITE BLOOD COUNT 6.9 x10^3/uL (4.0-11.0)
[2016-06-24 04:53] LABS: CALCIUM 8.3 mg/dL (8.5-10.1); CREATININE 0.8 mg/dL (0.7-1.3); GFR 102.3; POTASSIUM 3.8 mmol/L (3.5-5.1)
[2016-06-24] MEDS: CEFAZOLIN SODIUM 1 GM in IV NORMAL SALINE 50ML 50 ML IV SCH ×3 (06:05→22:43)
[2016-06-24] MEDS: OXYCODONE/APAP 5/325 TABLET. PO PRN ×3 (06:14→22:43)
--- NOTE | 2016-06-24 08:00 | PDOC ---
PROGRESS NOTES Chief Complaint Chief Complaint headaches , b/l subdural hematoma - Acute bilateral subdural hematoma, s/p nela hole on L - Confusion and more lethargy, - Metabolic encephalopathy, improved - Marfan's syndrome; with hx of aortic and mitral valve replacements - L eye blindness - HTN, stable - Dysphagia, on NPO status History of Present Illness History of Present Illness Pt seen in ICU this AM. Resting in NAD, recovering from a second craniotomy Wednesday. Adequate saturation on room air. Discussed case with RN. Pt is reportedly still weak and a little confused. Vitals Vitals Vital Signs Date Time Temp Pulse Resp B/P Pulse Ox O2 Delivery O2 Flow Rate FiO2 06/24/16 07:51 98.5 64 12 81/49 96 Room Air 98.5 06/24/16 04:00 2.0 Physical Exam General: Other (Confused and weak) Heart: Regular rate, Normal S1 Lungs: Clear, Other Abdomen: Normal bowel sounds Extremities: No clubbing, No cyanosis, No edema Skin: No rashes, No breakdown, Other (dressings intact, drain in place on the right) Labs LABS Laboratory Tests Test 06/23/16 11:55 06/24/16 03:30 Prothrombin Time 14.3SEC (11.7-14.0) 13.0SEC (11.7-14.0) Prothromb Time International Ratio 1.2 (0.8-1.1) 1.0 (0.8-1.1) White Blood Count 6.9x10^3/uL (4.0-11.0) Red Blood Count 4.04x10^6/uL (4.30-5.70) Hemoglobin 12.1g/dL (13.0-17.5) Hematocrit 35.4% (39.0-53.0) Mean Corpuscular Volume 88fL (79-100) Mean Corpuscular Hemoglobin 30pg (25-35) Mean Corpuscular Hemoglobin Concent 34g/dL (31-37) Red Cell Distribution Width 13.2% (11.5-14.5) Platelet Count 233x10^3/uL (140-400) Neutrophils (%) (Auto) 60% (31-73) Lymphocytes (%) (Auto) 23% (24-48) Monocytes (%) (Auto) 12% (0-9) Eosinophils (%) (Auto) 4% (0-3) Basophils (%) (Auto) 1% (0-3) Neutrophils # (Auto) 4.2x10^3uL (1.8-7.7) Lymphocytes # (Auto) 1.6x10^3/uL (1.0-4.8) Monocytes # (Auto) 0.8x10^3/uL (0.0-1.1) Eosinophils # (Auto) 0.3x10^3/uL (0.0-0.7) Basophils # (Auto) 0.1x10^3/uL (0.0-0.2) Sodium Level 139mmol/L (136-145) Potassium Level 3.8mmol/L (3.5-5.1) Chloride Level 105mmol/L (98-107) Carbon Dioxide Level 26mmol/L (21-32) Anion Gap 8 (6-14) Blood Urea Nitrogen 17mg/dL (8-26) Creatinine 0.8mg/dL (0.7-1.3) Estimated GFR (Cockcroft-Gault) 102.3 Glucose Level 87mg/dL (70-99) Calcium Level 8.3mg/dL (8.5-10.1) Review of Systems Review of Systems denies fever, chills, chest pain, SOA + weakness, pain, mild confusion Assessment and Plan Assessmemt and Plan ASSESSMENT: - Acute bilateral subdural hematoma, s/p nela hole on L and the R yesterday - Confusion and more lethargy, - Metabolic encephalopathy, improved - Marfan's syndrome; with hx of aortic and mitral valve replacements - L eye blindness - HTN, stable - Dysphagia, on NPO status PLAN: - cont ICU monitoring - cont wound care of craniotomy nela holes - recheck labs - LTAC eval; may need LTC placement after LTAC? - home meds - appreciate subspecialty input Problems: Comment Review of Relevant I have reviewed the following items jordy (where applicable) has been applied. Labs Laboratory Tests Test 06/23/16 04:35 06/23/16 11:55 06/24/16 03:30 White Blood Count 7.8x10^3/uL (4.0-11.0) 6.9x10^3/uL (4.0-11.0) Red Blood Count 3.99x10^6/uL (4.30-5.70) 4.04x10^6/uL (4.30-5.70) Hemoglobin 12.0g/dL (13.0-17.5) 12.1g/dL (13.0-17.5) Hematocrit 35.4% (39.0-53.0) 35.4% (39.0-53.0) Mean Corpuscular Volume 89fL (79-100) 88fL (79-100) Mean Corpuscular Hemoglobin 30pg (25-35) 30pg (25-35) Mean Corpuscular Hemoglobin Concent 34g/dL (31-37) 34g/dL (31-37) Red Cell Distribution Width 13.2% (11.5-14.5) 13.2% (11.5-14.5) Platelet Count 223x10^3/uL (140-400) 233x10^3/uL (140-400) Neutrophils (%) (Auto) 82% (31-73) 60% (31-73) Lymphocytes (%) (Auto) 6% (24-48) 23% (24-48) Monocytes (%) (Auto) 12% (0-9) 12% (0-9) Eosinophils (%) (Auto) 0% (0-3) 4% (0-3) Basophils (%) (Auto) 0% (0-3) 1% (0-3) Neutrophils # (Auto) 6.4x10^3uL (1.8-7.7) 4.2x10^3uL (1.8-7.7) Lymphocytes # (Auto) 0.5x10^3/uL (1.0-4.8) 1.6x10^3/uL (1.0-4.8) Monocytes # (Auto) 0.9x10^3/uL (0.0-1.1) 0.8x10^3/uL (0.0-1.1) Eosinophils # (Auto) 0.0x10^3/uL (0.0-0.7) 0.3x10^3/uL (0.0-0.7) Basophils # (Auto) 0.0x10^3/uL (0.0-0.2) 0.1x10^3/uL (0.0-0.2) Sodium Level 136mmol/L (136-145) 139mmol/L (136-145) Potassium Level 4.5mmol/L (3.5-5.1) 3.8mmol/L (3.5-5.1) Chloride Level 102mmol/L (98-107) 105mmol/L (98-107) Carbon Dioxide Level 27mmol/L (21-32) 26mmol/L (21-32) Anion Gap 7 (6-14) 8 (6-14) Blood Urea Nitrogen 21mg/dL (8-26) 17mg/dL (8-26) Creatinine 0.8mg/dL (0.7-1.3) 0.8mg/dL (0.7-1.3) Estimated GFR (Cockcroft-Gault) 102.3 102.3 Glucose Level 115mg/dL (70-99) 87mg/dL (70-99) Calcium Level 8.5mg/dL (8.5-10.1) 8.3mg/dL (8.5-10.1) Prothrombin Time 14.3SEC (11.7-14.0) 13.0SEC (11.7-14.0) Prothromb Time International Ratio 1.2 (0.8-1.1) 1.0 (0.8-1.1) Laboratory Tests Test 06/23/16 11:55 06/24/16 03:30 Prothrombin Time 14.3SEC (11.7-14.0) 13.0SEC (11.7-14.0) Prothromb Time International Ratio 1.2 (0.8-1.1) 1.0 (0.8-1.1) White Blood Count 6.9x10^3/uL (4.0-11.0) Red Blood Count 4.04x10^6/uL (4.30-5.70) Hemoglobin 12.1g/dL (13.0-17.5) Hematocrit 35.4% (39.0-53.0) Mean Corpuscular Volume 88fL (79-100) Mean Corpuscular Hemoglobin 30pg (25-35) Mean Corpuscular Hemoglobin Concent 34g/dL (31-37) Red Cell Distribution Width 13.2% (11.5-14.5) Platelet Count 233x10^3/uL (140-400) Neutrophils (%) (Auto) 60% (31-73) Lymphocytes (%) (Auto) 23% (24-48) Monocytes (%) (Auto) 12% (0-9) Eosinophils (%) (Auto) 4% (0-3) Basophils (%) (Auto) 1% (0-3) Neutrophils # (Auto) 4.2x10^3uL (1.8-7.7) Lymphocytes # (Auto) 1.6x10^3/uL (1.0-4.8) Monocytes # (Auto) 0.8x10^3/uL (0.0-1.1) Eosinophils # (Auto) 0.3x10^3/uL (0.0-0.7) Basophils # (Auto) 0.1x10^3/uL (0.0-0.2) Sodium Level 139mmol/L (136-145) Potassium Level 3.8mmol/L (3.5-5.1) Chloride Level 105mmol/L (98-107) Carbon Dioxide Level 26mmol/L (21-32) Anion Gap 8 (6-14) Blood Urea Nitrogen 17mg/dL (8-26) Creatinine 0.8mg/dL (0.7-1.3) Estimated GFR (Cockcroft-Gault) 102.3 Glucose Level 87mg/dL (70-99) Calcium Level 8.3mg/dL (8.5-10.1) Microbiology 06/13/16 Urine Culture - Final, Complete 06/13/16 Urine Culture Result 1 (GLENN) - Final, Complete Medications Current Medications Sodium Chloride (Iv Sodium Chloride 0.9% 1000ml Bag) 1,000 ml @ 100 mls/hr 1X ONCE IV Last administered on 06/13/16 13:45; Start 06/13/16 at 13:45; Stop at 23:44; Status DC Phytonadione (Mephyton) 10 mg 1X ONCE PO Last administered on 06/13/16 15:03; Start 06/13/16 at 15:00; Stop 06/13/16 at 15:01; Status DC Ondansetron HCl 4 mg 4 mg PRN Q8HRS PRN IV NAUSEA/VOMITING; Start 06/13/16 at 16 :15; Stop 06/14/16 at 16:14; Status DC Sodium Chloride (Iv Sodium Chloride 0.9% 1000ml Bag) 1,000 ml @ 100 mls/hr Q10H IV Last administered on 06/14/16 05:49; Start 06/13/16 at 16:10; Stop at 13:20; Status DC Morphine Sulfate 2 mg 1X ONCE IV Last administered on 06/13/16 18:08; Start at 18:30; Stop 06/13/16 at 18:31; Status DC Oxycodone/ Acetaminophen (Percocet 5/325) 1 tab PRN Q4HRS PRN PO PAIN Last administered on 06/22/16 19:15; Start 06/13/16 at 18:00 Oxycodone/ Acetaminophen (Percocet 5/325) 2 tab PRN Q4HRS PRN PO PAIN Last administered on 06/24/16 06:14; Start 06/13/16 at 18:00 Metoprolol Succinate (Toprol Xl) 25 mg DAILY PO Last administered on 06/23/16 08:54; Start 06/14/16 at 09:00 Lorazepam 2 mg 2 mg PRN Q4HRS PRN IV ANXIETY / AGITATION Last administered on 01:06; Start 06/13/16 at 19:45 Levetiracetam 500 mg/Sodium Chloride 105 ml @ 400 mls/hr PRN Q12HRS PRN IV SEIZURES; Start 06/13/16 at 19:45 Potassium Chloride/Sodium Chloride (KCl 20 Meq-0.45% Nacl) 1,000 ml @ 100 mls/ hr Q10H IV Last administered on 06/17/16 03:24; Start 06/14/16 at 13:30; Stop 06/17/16 at 12:24; Status DC Warfarin Sodium (Coumadin Per Pharmacy) 1 each PRN DAILY PRN MC SEE COMMENTS Last administered on 06/23/16 10:55; Start 06/14/16 at 16:00 Warfarin Sodium 2.5 mg 2.5 mg 1X WARF ONCE PO ; Start 06/14/16 at 17:00; Stop at 17:01; Status Cancel Bacitracin/Sodium Chloride (Iv Sodium Chloride 0.9% 1000ml Bag) 1,000 ml @ 1, 000 mls/hr 1X PERIOP ONCE IRR Last administered on 06/15/16t 12:41; Start at 10:00; Stop 06/15/16 at 10:59; Status DC Ondansetron HCl (Zofran) 4 mg PRN Q6HRS PRN IV Nausea; Start 06/15/16 at 10:00; Stop 06/16/16 at 09:59; Status DC Fentanyl Citrate (Fentanyl 2ml Vial) 25 mcg PRN Q5MIN PRN IV MILD PAIN; Start 06/15/16 at 10:00; Stop 06/16/16 at 09:59; Status DC Fentanyl Citrate (Fentanyl 2ml Vial) 50 mcg PRN Q5MIN PRN IV MODERATE PAIN; Start 06/15/16 at 10:00; Stop 06/16/16 at 09:59; Status DC Morphine Sulfate 1 mg 1 mg PRN Q10MIN PRN IV SEVERE PAIN; Start 06/15/16 at 10: 00; Stop 06/16/16 at 09:59; Status DC Lactated Ringer's (Iv Lactated Ringers) 1,000 ml @ 30 mls/hr Q24H IV ; Start at 09:47; Stop 06/15/16 at 21:46; Status DC Lidocaine HCl 2 ml 1X PRN PRN ID IV START; Start 06/15/16 at 10:00; Stop at 09:59; Status DC Hydromorphone HCl (Dilaudid) 0.5 mg PRN Q10MIN PRN IV SEV PAIN,Second choice; Start 06/15/16 at 10:00; Stop 06/16/16 at 09:59; Status DC Prochlorperazine Edisylate (Compazine) 5 mg PACU PRN PRN IV NAUSEA; Start at 10:00; Stop 06/16/16 at 09:59; Status DC Phytonadione (Vitamin K) 2 mg 1X ONCE SQ Last administered on 06/15/16t 11:21; Start 06/15/16 at 09:45; Stop 06/15/16 at 09:57; Status DC Dexamethasone Sodium Phosphate (Decadron) 20 mg STK-MED ONCE .ROUTE ; Start 06/15 at 10:26; Stop 06/15/16 at 10:27; Status DC Ondansetron HCl (Zofran) 4 mg STK-MED ONCE .ROUTE ; Start 06/15/16 at 10:26; Stop 06/15/16 at 10:27; Status DC Rocuronium [place] 50 mg 50 mg STK-MED ONCE .ROUTE ; Start 06/15/16 at 10:26; Stop 06/15/16 at 10:27; Status DC Propofol (Diprivan) 20 ml @ As Directed STK-MED ONCE IV ; Start 06/15/16 at 10:26 ; Stop 06/15/16 at 10:27; Status DC Lidocaine HCl 100 mg STK-MED ONCE .ROUTE ; Start 06/15/16 at 10:26; Stop 06/15/16 at 10:27; Status DC Fentanyl Citrate (Fentanyl 2ml Vial) 100 mcg STK-MED ONCE .ROUTE ; Start at 10:26; Stop 06/15/16 at 10:27; Status DC Thrombin 20,000 unit STK-MED ONCE TP Last administered on 06/15/16 12:41; Start 06/15/16 at 10:47; Stop 06/15/16 at 10:48; Status DC Gelatin (Gelfoam Size 100) 1 each STK-MED ONCE .ROUTE Last administered on 06/15 12:41; Start 06/15/16 at 10:48; Stop 06/15/16 at 10:49; Status DC Bupivacaine HCl/ Epinephrine Bitart (Sensorcaine-Epi 0.25%-1:570463 Mpf) 30 ml STK-MED ONCE .ROUTE Last administered on 06/15/16 12:41; Start 06/15/16 at 10:48 ; Stop 06/15/16 at 10:49; Status DC Cellulose 1 each STK-MED ONCE .ROUTE ; Start 06/15/16 at 10:49; Stop 06/15/16 at 10:50; Status DC Potassium Chloride 20 meq 20 meq 1X ONCE PO Last administered on 06/15/16 11: 21; Start 06/15/16 at 11:15; Stop 06/15/16 at 11:16; Status DC Cefazolin Sodium/ Dextrose (Ancef 2gm Premix) 50 ml @ 100 mls/hr 1X PREOP PRN IV PER PROTOCOL Last administered on 06/15/16 12:56; Start 06/16/16 at 06:00; Stop 06/16/16 at 18:00; Status DC Ephedrine Sulfate 50 mg STK-MED ONCE IV ; Start 06/15/16 at 13:04; Stop 06/15/16 at 13:05; Status DC Glycopyrrolate (Robinul) 1 mg STK-MED ONCE .ROUTE ; Start 06/15/16 at 13:39; Stop 06/15/16 at 13:40; Status DC Neostigmine Methylsulfate 5 mg STK-MED ONCE .ROUTE ; Start 06/15/16 at 13:39; Stop 06/15/16 at 13:40; Status DC Fentanyl Citrate (Fentanyl 2ml Vial) 100 mcg STK-MED ONCE .ROUTE ; Start at 13:55; Stop 06/15/16 at 13:56; Status DC Sevoflurane (Ultane) 30 ml STK-MED ONCE IH ; Start 06/15/16 at 13:55; Stop at 13:56; Status DC Sevoflurane (Ultane) 60 ml STK-MED ONCE IH ; Start 06/15/16 at 13:55; Stop at 13:56; Status DC Warfarin Sodium (Coumadin - No Dose Today) 1 each 1X WARF ONCE MC Last administered on 06/15/16 16:00; Start 06/15/16 at 16:00; Stop 06/15/16 at 16:01; Status DC Cefazolin Sodium/ Dextrose (Ancef 2gm Premix) 2 gm STK-MED ONCE IV ; Start at 13:00; Stop 06/16/16 at 08:05; Status DC Famotidine (Pepcid) 20 mg BID IVP ; Start 06/16/16 at 21:00; Stop 06/16/16 at 21 :00; Status DC Famotidine (Pepcid) 20 mg BID PO Last administered on 06/23/16 21:23; Start at 13:00 Warfarin Sodium (Coumadin) 5 mg 1X WARF ONCE PO Last administered on 18:15; Start 06/17/16 at 16:00; Stop 06/17/16 at 16:01; Status DC Warfarin Sodium (Coumadin) 7.5 mg 1X WARF ONCE PO Last administered on 16:25; Start 06/18/16 at 16:00; Stop 06/18/16 at 16:01; Status DC Ondansetron HCl (Zofran) 4 mg PRN Q6HRS PRN IV NAUSEA/VOMITING Last administered on 06/19/16 03:08; Start 06/19/16 at 03:00 Morphine Sulfate 2 mg PRN Q2HR PRN IV PAIN Last administered on 06/20/16 08:06 ; Start 06/19/16 at 03:00; Stop 06/20/16 at 10:14; Status DC Warfarin Sodium 7.5 mg 7.5 mg 1X WARF ONCE PO ; Start 06/19/16 at 16:00; Stop 06/19/16 at 16:01; Status DC Amino Acids/ Glycerin/ Electrolytes (Procalamine) 1,000 ml @ 75 mls/hr [id number] IV Last administered on 06/23/16 01:06; Start 06/19/16 at 16:15; Stop at 10:24; Status DC Fentanyl Citrate (Fentanyl 2ml Vial) 50 mcg Q6HRS PRN IM BREAKTHROUGH PAIN; Start 06/20/16 at 10:15; Stop 06/20/16 at 11:08; Status DC Fentanyl Citrate (Fentanyl 2ml Vial) 50 mcg PRN Q6HRS PRN IV BREAKTHROUGH PAIN Last administered on 06/22/16 22:11; Start 06/20/16 at 11:15 Warfarin Sodium (Coumadin) 7.5 mg 1X WARF ONCE PO ; Start 06/20/16 at 16:00; Stop 06/20/16 at 16:01; Status DC Enoxaparin Sodium (Lovenox Per Pharmacy Treatment Dosing) 1 each PRN DAILY PRN MC SEE COMMENTS; Start 06/21/16 at 12:30; Stop 06/22/16 at 12:29; Status DC Enoxaparin Sodium 60 mg 60 mg Q12HR SQ Last administered on 06/22/16 21:13; Start 06/21/16 at 13:00; Stop 06/23/16 at 10:24; Status DC Bacitracin/Sodium Chloride (Iv Sodium Chloride 0.9% 1000ml Bag) 1,000 ml @ 1, 000 mls/hr 1X PERIOP ONCE IRR ; Start 06/22/16 at 09:00; Stop 06/22/16 at 09:59 ; Status DC Ondansetron HCl (Zofran) 4 mg PRN Q6HRS PRN IV Nausea; Start 06/22/16 at 09:00 ; Stop 06/22/16 at 18:00; Status DC Fentanyl Citrate (Fentanyl 2ml Vial) 25 mcg PRN Q5MIN PRN IV MILD PAIN; Start 06/22/16 at 09:00; Stop 06/22/16 at 18:00; Status DC Fentanyl Citrate (Fentanyl 2ml Vial) 50 mcg PRN Q5MIN PRN IV MODERATE PAIN Last administered on 06/22/16t 17:20; Start 06/22/16 at 09:00; Stop 06/22/16 at 18:00; Status DC Morphine Sulfate 1 mg 1 mg PRN Q10MIN PRN IV SEVERE PAIN; Start 06/22/16 at 09: 00; Stop 06/22/16 at 18:00; Status DC Lactated Ringer's (Iv Lactated Ringers) 1,000 ml @ 30 mls/hr Q24H IV Last administered on 06/22/16t 10:55; Start 06/22/16 at 08:52; Stop 06/22/16 at 20:51 ; Status DC Lidocaine HCl 2 ml 1X PRN PRN ID IV START; Start 06/22/16 at 09:00; Stop at 18:00; Status DC Hydromorphone HCl (Dilaudid) 0.5 mg PRN Q10MIN PRN IV SEV PAIN,Second choice; Start 06/22/16 at 09:00; Stop 06/22/16 at 18:00; Status DC Prochlorperazine Edisylate (Compazine) 5 mg PACU PRN PRN IV NAUSEA; Start 06/22 at 09:00; Stop 06/22/16 at 18:00; Status DC Bupivacaine HCl/ Epinephrine Bitart (Sensorcaine-Epi 0.25%-1:[id number] Mpf) 30 ml STBontera-MED ONCE .ROUTE Last administered on 06/22/16 12:21; Start 06/22/16 at 09: 22; Stop 06/22/16 at 09:23; Status DC Cellulose 1 each STK-MED ONCE .ROUTE ; Start 06/22/16 at 09:22; Stop 06/22/16 at 09:23; Status DC Thrombin 20,000 unit STK-MED ONCE TP Last administered on 06/22/16 12:21; Start 06/22/16 at 09:22; Stop 06/22/16 at 09:23; Status DC Gelatin 1 each 1 each STK-MED ONCE .ROUTE Last administered on 06/22/16 12:21 ; Start 06/22/16 at 09:23; Stop 06/22/16 at 09:24; Status DC Propofol (Diprivan) 20 ml @ As Directed STK-MED ONCE IV ; Start 06/22/16 at 09: 57; Stop 06/22/16 at 09:58; Status DC Lidocaine HCl 100 mg STK-MED ONCE .ROUTE ; Start 06/22/16 at 09:57; Stop at 09:58; Status DC Rocuronium [place] (Zemuron) 50 mg STK-MED ONCE .ROUTE ; Start 06/22/16 at 09:57 ; Stop 06/22/16 at 09:58; Status DC Ondansetron HCl (Zofran) 4 mg STK-MED ONCE .ROUTE ; Start 06/22/16 at 09:58; Stop 06/22/16 at 09:59; Status DC Dexamethasone Sodium Phosphate (Decadron) 20 mg STK-MED ONCE .ROUTE ; Start at 09:58; Stop 06/22/16 at 09:59; Status DC Fentanyl Citrate 100 mcg 100 mcg STK-MED ONCE .ROUTE ; Start 06/22/16 at 09:59; Stop 06/22/16 at 10:00; Status DC Cefazolin Sodium/ Dextrose (Ancef 2gm Premix) 50 ml @ 100 mls/hr 1X PREOP IV Last administered on 06/22/16 12:37; Start 06/22/16 at 10:15 Metoprolol Tartrate (Lopressor) 5 mg STK-MED ONCE .ROUTE ; Start 06/22/16 at 11: 05; Stop 06/22/16 at 11:06; Status DC Metoprolol Tartrate (Lopressor) 5 mg 1X ONCE IVP Last administered on 11:12; Start 06/22/16 at 11:15; Stop 06/22/16 at 11:16; Status DC Ephedrine Sulfate 50 mg STK-MED ONCE IV ; Start 06/22/16 at 12:11; Stop at 12:12; Status DC Glycopyrrolate (Robinul) 1 mg STK-MED ONCE .ROUTE ; Start 06/22/16 at 12:40; Stop 06/22/16 at 12:41; Status DC Neostigmine Methylsulfate 5 mg STK-MED ONCE .ROUTE ; Start 06/22/16 at 12:40; Stop 06/22/16 at 12:41; Status DC Sevoflurane 60 ml 60 ml STK-MED ONCE IH ; Start 06/22/16 at 13:05; Stop at 13:06; Status DC Cefazolin Sodium/ Sodium Chloride (Ancef/Iv Sodium Chloride 0.9% 50ml) 50 ml @ 100 mls/hr Q8HRS IV Last administered on 06/24/16 06:05; Start 06/22/16 at 23: 00 Warfarin Sodium (Coumadin) 7.5 mg 1X WARF ONCE PO Last administered on 17:06; Start 06/23/16 at 16:00; Stop 06/23/16 at 16:01; Status DC Active Scripts Active Reported Coumadin (Warfarin Sodium) 5 Mg Tablet 1 Tab PO DAILY Metoprolol Succinate ( Xl ) (Metoprolol Succinate) 25 Mg Tab.er.24h 25 Mg PO DAILY Vitals/I & O Vital Sign - Last 24 Hours 06/23/16 06/23/16 06/23/16 06/23/16 07:58 08:00 08:54 08:58 Pulse 80 66 90 Resp 16 20 B/P 102/64 102/64 101/62 Pulse Ox 97 97 O2 Delivery Room Air Room Air Room Air 06/23/16 06/23/16 06/23/16 06/23/16 10:00 11:08 12:00 12:00 Pulse 80 82 80 Resp 20 20 18 B/P 99/62 102/64 99/63 Pulse Ox 97 94 96 O2 Delivery Room Air Room Air Room Air Room Air 06/23/16 06/23/16 06/23/16 06/23/16 13:00 14:00 15:00 16:00 Temp 98.3 98.3 Pulse 82 80 72 Resp 18 18 12 B/P 100/59 90/54 90/58 Pulse Ox 94 96 96 O2 Delivery Room Air Room Air Room Air Room Air 06/23/16 06/23/16 06/23/16 06/23/16 16:00 17:00 18:00 19:00 Temp 98.4 98.4 Pulse 86 81 84 86 Resp 12 16 16 18 B/P 96/57 95/62 91/61 96/58 Pulse Ox 96 96 95 96 O2 Delivery Room Air Room Air Room Air Room Air 06/23/16 06/23/16 06/23/16 06/23/16 20:00 20:00 21:00 22:00 Temp 98.6 98.6 Pulse 80 82 80 Resp 17 B/P 92/58 99/66 97/68 O2 Delivery Room Air Room Air Room Air 06/23/16 06/23/16 06/24/16 06/24/16 23:00 23:05 00:00 00:00 Temp 97.9 97.9 Pulse 78 82 Resp 22 20 18 B/P 96/52 95/55 Pulse Ox 95 95 O2 Delivery Room Air Room Air Room Air Room Air O2 Flow Rate 2.0 06/24/16 06/24/16 06/24/16 06/24/16 00:05 01:00 02:00 03:00 Pulse 70 78 72 Resp 16 18 20 B/P 91/51 90/56 97/57 Pulse Ox 95 95 97 96 O2 Delivery Room Air Room Air Room Air Room Air 06/24/16 06/24/16 06/24/16 06/24/16 04:00 04:00 05:00 06:00 Temp 98.6 98.6 Pulse 62 61 64 Resp 20 24 15 B/P 97/62 101/65 81/52 Pulse Ox 97 97 96 O2 Delivery Room Air Room Air Room Air Room Air O2 Flow Rate 2.0 06/24/16 06/24/16 06/24/16 06/24/16 06:12 06:14 07:14 07:34 Resp 15 20 B/P 101/61 Pulse Ox 96 O2 Delivery Room Air Room Air 06/24/16 07:51 Temp 98.5 98.5 Pulse 64 Resp 12 B/P 81/49 Pulse Ox 96 O2 Delivery Room Air Intake and Output 06/23/16 06/23/16 06/24/16 15:00 23:00 07:00 Intake Total 860 ml 120 ml 300 ml Output Total 50 ml 408 ml 303 ml Balance 810 ml -288 ml -3 ml CHRISTEL GRIFFITHS III DO Jun 24, 2016 08:00
[2016-06-24] MEDS: METOPROLOL SUCC 24HR ER 25 MG TAB.ER.24H. PO SCH (09:00)
[2016-06-24] MEDS: FAMOTIDINE 20 MG TABLET. PO SCH ×2 (09:04→22:42)
--- NOTE | 2016-06-24 11:22 | PDOC ---
PROGRESS NOTES Objective Objective Vital Signs Date Time Temp Pulse Resp B/P Pulse Ox O2 Delivery O2 Flow Rate FiO2 06/24/16 10:00 97.9 69 21 100/64 98 Room Air 97.9 06/24/16 04:00 2.0 Intake and Output 06/24/16 07:00 Intake Total 1280 ml Output Total 761 ml Balance 519 ml Intake Oral 780 ml IV Total 500 ml Output Urine Total 750 ml Drainage Total 11 ml Physical Exam Physical Exam Awake, Alert, moves all extremities. Assessment Assessment INR 1. Scant amount of drainage. Problems Medical Problems: (1) Subdural hematoma Status: Acute (2) Supratherapeutic INR Status: Acute Plan Plan of Care Drain removed. Keep HOB flat for 2 hours. Resume Lovenox 60 BID. F/U CT today. Possible transfer. Comment Review of Relevant I have reviewed the following items jordy (where applicable) has been applied. Labs Laboratory Tests Test 06/23/16 04:35 06/23/16 11:55 06/24/16 03:30 White Blood Count 7.8x10^3/uL (4.0-11.0) 6.9x10^3/uL (4.0-11.0) Red Blood Count 3.99x10^6/uL (4.30-5.70) 4.04x10^6/uL (4.30-5.70) Hemoglobin 12.0g/dL (13.0-17.5) 12.1g/dL (13.0-17.5) Hematocrit 35.4% (39.0-53.0) 35.4% (39.0-53.0) Mean Corpuscular Volume 89fL (79-100) 88fL (79-100) Mean Corpuscular Hemoglobin 30pg (25-35) 30pg (25-35) Mean Corpuscular Hemoglobin Concent 34g/dL (31-37) 34g/dL (31-37) Red Cell Distribution Width 13.2% (11.5-14.5) 13.2% (11.5-14.5) Platelet Count 223x10^3/uL (140-400) 233x10^3/uL (140-400) Neutrophils (%) (Auto) 82% (31-73) 60% (31-73) Lymphocytes (%) (Auto) 6% (24-48) 23% (24-48) Monocytes (%) (Auto) 12% (0-9) 12% (0-9) Eosinophils (%) (Auto) 0% (0-3) 4% (0-3) Basophils (%) (Auto) 0% (0-3) 1% (0-3) Neutrophils # (Auto) 6.4x10^3uL (1.8-7.7) 4.2x10^3uL (1.8-7.7) Lymphocytes # (Auto) 0.5x10^3/uL (1.0-4.8) 1.6x10^3/uL (1.0-4.8) Monocytes # (Auto) 0.9x10^3/uL (0.0-1.1) 0.8x10^3/uL (0.0-1.1) Eosinophils # (Auto) 0.0x10^3/uL (0.0-0.7) 0.3x10^3/uL (0.0-0.7) Basophils # (Auto) 0.0x10^3/uL (0.0-0.2) 0.1x10^3/uL (0.0-0.2) Sodium Level 136mmol/L (136-145) 139mmol/L (136-145) Potassium Level 4.5mmol/L (3.5-5.1) 3.8mmol/L (3.5-5.1) Chloride Level 102mmol/L (98-107) 105mmol/L (98-107) Carbon Dioxide Level 27mmol/L (21-32) 26mmol/L (21-32) Anion Gap 7 (6-14) 8 (6-14) Blood Urea Nitrogen 21mg/dL (8-26) 17mg/dL (8-26) Creatinine 0.8mg/dL (0.7-1.3) 0.8mg/dL (0.7-1.3) Estimated GFR (Cockcroft-Gault) 102.3 102.3 Glucose Level 115mg/dL (70-99) 87mg/dL (70-99) Calcium Level 8.5mg/dL (8.5-10.1) 8.3mg/dL (8.5-10.1) Prothrombin Time 14.3SEC (11.7-14.0) 13.0SEC (11.7-14.0) Prothromb Time International Ratio 1.2 (0.8-1.1) 1.0 (0.8-1.1) Laboratory Tests Test 06/23/16 11:55 06/24/16 03:30 Prothrombin Time 14.3SEC (11.7-14.0) 13.0SEC (11.7-14.0) Prothromb Time International Ratio 1.2 (0.8-1.1) 1.0 (0.8-1.1) White Blood Count 6.9x10^3/uL (4.0-11.0) Red Blood Count 4.04x10^6/uL (4.30-5.70) Hemoglobin 12.1g/dL (13.0-17.5) Hematocrit 35.4% (39.0-53.0) Mean Corpuscular Volume 88fL (79-100) Mean Corpuscular Hemoglobin 30pg (25-35) Mean Corpuscular Hemoglobin Concent 34g/dL (31-37) Red Cell Distribution Width 13.2% (11.5-14.5) Platelet Count 233x10^3/uL (140-400) Neutrophils (%) (Auto) 60% (31-73) Lymphocytes (%) (Auto) 23% (24-48) Monocytes (%) (Auto) 12% (0-9) Eosinophils (%) (Auto) 4% (0-3) Basophils (%) (Auto) 1% (0-3) Neutrophils # (Auto) 4.2x10^3uL (1.8-7.7) Lymphocytes # (Auto) 1.6x10^3/uL (1.0-4.8) Monocytes # (Auto) 0.8x10^3/uL (0.0-1.1) Eosinophils # (Auto) 0.3x10^3/uL (0.0-0.7) Basophils # (Auto) 0.1x10^3/uL (0.0-0.2) Sodium Level 139mmol/L (136-145) Potassium Level 3.8mmol/L (3.5-5.1) Chloride Level 105mmol/L (98-107) Carbon Dioxide Level 26mmol/L (21-32) Anion Gap 8 (6-14) Blood Urea Nitrogen 17mg/dL (8-26) Creatinine 0.8mg/dL (0.7-1.3) Estimated GFR (Cockcroft-Gault) 102.3 Glucose Level 87mg/dL (70-99) Calcium Level 8.3mg/dL (8.5-10.1) Microbiology 06/13/16 Urine Culture - Final, Complete 06/13/16 Urine Culture Result 1 (GLENN) - Final, Complete Medications Current Medications Sodium Chloride (Iv Sodium Chloride 0.9% 1000ml Bag) 1,000 ml @ 100 mls/hr 1X ONCE IV Last administered on 06/13/16 13:45; Start 06/13/16 at 13:45; Stop at 23:44; Status DC Phytonadione (Mephyton) 10 mg 1X ONCE PO Last administered on 06/13/16 15:03; Start 06/13/16 at 15:00; Stop 06/13/16 at 15:01; Status DC Ondansetron HCl 4 mg 4 mg PRN Q8HRS PRN IV NAUSEA/VOMITING; Start 06/13/16 at 16 :15; Stop 06/14/16 at 16:14; Status DC Sodium Chloride (Iv Sodium Chloride 0.9% 1000ml Bag) 1,000 ml @ 100 mls/hr Q10H IV Last administered on 06/14/16 05:49; Start 06/13/16 at 16:10; Stop at 13:20; Status DC Morphine Sulfate 2 mg 1X ONCE IV Last administered on 06/13/16 18:08; Start at 18:30; Stop 06/13/16 at 18:31; Status DC Oxycodone/ Acetaminophen (Percocet 5/325) 1 tab PRN Q4HRS PRN PO PAIN Last administered on 06/22/16 19:15; Start 06/13/16 at 18:00 Oxycodone/ Acetaminophen (Percocet 5/325) 2 tab PRN Q4HRS PRN PO PAIN Last administered on 06/24/16 06:14; Start 06/13/16 at 18:00 Metoprolol Succinate (Toprol Xl) 25 mg DAILY PO Last administered on 06/23/16 08:54; Start 06/14/16 at 09:00 Lorazepam 2 mg 2 mg PRN Q4HRS PRN IV ANXIETY / AGITATION Last administered on 01:06; Start 06/13/16 at 19:45 Levetiracetam 500 mg/Sodium Chloride 105 ml @ 400 mls/hr PRN Q12HRS PRN IV SEIZURES; Start 06/13/16 at 19:45 Potassium Chloride/Sodium Chloride (KCl 20 Meq-0.45% Nacl) 1,000 ml @ 100 mls/ hr Q10H IV Last administered on 06/17/16 03:24; Start 06/14/16 at 13:30; Stop 06/17/16 at 12:24; Status DC Warfarin Sodium (Coumadin Per Pharmacy) 1 each PRN DAILY PRN MC SEE COMMENTS Last administered on 06/23/16 10:55; Start 06/14/16 at 16:00 Warfarin Sodium 2.5 mg 2.5 mg 1X WARF ONCE PO ; Start 06/14/16 at 17:00; Stop at 17:01; Status Cancel Bacitracin/Sodium Chloride (Iv Sodium Chloride 0.9% 1000ml Bag) 1,000 ml @ 1, 000 mls/hr 1X PERIOP ONCE IRR Last administered on 06/15/16 12:41; Start at 10:00; Stop 06/15/16 at 10:59; Status DC Ondansetron HCl (Zofran) 4 mg PRN Q6HRS PRN IV Nausea; Start 06/15/16 at 10:00; Stop 06/16/16 at 09:59; Status DC Fentanyl Citrate (Fentanyl 2ml Vial) 25 mcg PRN Q5MIN PRN IV MILD PAIN; Start 06/15/16 at 10:00; Stop 06/16/16 at 09:59; Status DC Fentanyl Citrate (Fentanyl 2ml Vial) 50 mcg PRN Q5MIN PRN IV MODERATE PAIN; Start 06/15/16 at 10:00; Stop 06/16/16 at 09:59; Status DC Morphine Sulfate 1 mg 1 mg PRN Q10MIN PRN IV SEVERE PAIN; Start 06/15/16 at 10: 00; Stop 06/16/16 at 09:59; Status DC Lactated Ringer's (Iv Lactated Ringers) 1,000 ml @ 30 mls/hr Q24H IV ; Start at 09:47; Stop 06/15/16 at 21:46; Status DC Lidocaine HCl 2 ml 1X PRN PRN ID IV START; Start 06/15/16 at 10:00; Stop at 09:59; Status DC Hydromorphone HCl (Dilaudid) 0.5 mg PRN Q10MIN PRN IV SEV PAIN,Second choice; Start 06/15/16 at 10:00; Stop 06/16/16 at 09:59; Status DC Prochlorperazine Edisylate (Compazine) 5 mg PACU PRN PRN IV NAUSEA; Start at 10:00; Stop 06/16/16 at 09:59; Status DC Phytonadione (Vitamin K) 2 mg 1X ONCE SQ Last administered on 06/15/16t 11:21; Start 06/15/16 at 09:45; Stop 06/15/16 at 09:57; Status DC Dexamethasone Sodium Phosphate (Decadron) 20 mg STK-MED ONCE .ROUTE ; Start 06/15 at 10:26; Stop 06/15/16 at 10:27; Status DC Ondansetron HCl (Zofran) 4 mg STK-MED ONCE .ROUTE ; Start 06/15/16 at 10:26; Stop 06/15/16 at 10:27; Status DC Rocuronium Fields 50 mg 50 mg STK-MED ONCE .ROUTE ; Start 06/15/16 at 10:26; Stop 06/15/16 at 10:27; Status DC Propofol (Diprivan) 20 ml @ As Directed STK-MED ONCE IV ; Start 06/15/16 at 10:26 ; Stop 06/15/16 at 10:27; Status DC Lidocaine HCl 100 mg STK-MED ONCE .ROUTE ; Start 06/15/16 at 10:26; Stop 06/15/16 at 10:27; Status DC Fentanyl Citrate (Fentanyl 2ml Vial) 100 mcg STK-MED ONCE .ROUTE ; Start at 10:26; Stop 06/15/16 at 10:27; Status DC Thrombin 20,000 unit STK-MED ONCE TP Last administered on 06/15/16 12:41; Start 06/15/16 at 10:47; Stop 06/15/16 at 10:48; Status DC Gelatin (Gelfoam Size 100) 1 each STK-MED ONCE .ROUTE Last administered on 06/15 12:41; Start 06/15/16 at 10:48; Stop 06/15/16 at 10:49; Status DC Bupivacaine HCl/ Epinephrine Bitart (Sensorcaine-Epi 0.25%-1:757058 Mpf) 30 ml STK-MED ONCE .ROUTE Last administered on 06/15/16 12:41; Start 06/15/16 at 10:48 ; Stop 06/15/16 at 10:49; Status DC Cellulose 1 each STK-MED ONCE .ROUTE ; Start 06/15/16 at 10:49; Stop 06/15/16 at 10:50; Status DC Potassium Chloride 20 meq 20 meq 1X ONCE PO Last administered on 06/15/16 11: 21; Start 06/15/16 at 11:15; Stop 06/15/16 at 11:16; Status DC Cefazolin Sodium/ Dextrose (Ancef 2gm Premix) 50 ml @ 100 mls/hr 1X PREOP PRN IV PER PROTOCOL Last administered on 06/15/16 12:56; Start 06/16/16 at 06:00; Stop 06/16/16 at 18:00; Status DC Ephedrine Sulfate 50 mg STK-MED ONCE IV ; Start 06/15/16 at 13:04; Stop 06/15/16 at 13:05; Status DC Glycopyrrolate (Robinul) 1 mg STK-MED ONCE .ROUTE ; Start 06/15/16 at 13:39; Stop 06/15/16 at 13:40; Status DC Neostigmine Methylsulfate 5 mg STK-MED ONCE .ROUTE ; Start 06/15/16 at 13:39; Stop 06/15/16 at 13:40; Status DC Fentanyl Citrate (Fentanyl 2ml Vial) 100 mcg STK-MED ONCE .ROUTE ; Start at 13:55; Stop 06/15/16 at 13:56; Status DC Sevoflurane (Ultane) 30 ml STK-MED ONCE IH ; Start 06/15/16 at 13:55; Stop at 13:56; Status DC Sevoflurane (Ultane) 60 ml STK-MED ONCE IH ; Start 06/15/16 at 13:55; Stop at 13:56; Status DC Warfarin Sodium (Coumadin - No Dose Today) 1 each 1X WARF ONCE MC Last administered on 06/15/16 16:00; Start 06/15/16 at 16:00; Stop 06/15/16 at 16:01; Status DC Cefazolin Sodium/ Dextrose (Ancef 2gm Premix) 2 gm STK-MED ONCE IV ; Start at 13:00; Stop 06/16/16 at 08:05; Status DC Famotidine (Pepcid) 20 mg BID IVP ; Start 06/16/16 at 21:00; Stop 06/16/16 at 21 :00; Status DC Famotidine (Pepcid) 20 mg BID PO Last administered on 06/24/16 09:04; Start at 13:00 Warfarin Sodium (Coumadin) 5 mg 1X WARF ONCE PO Last administered on 18:15; Start 06/17/16 at 16:00; Stop 06/17/16 at 16:01; Status DC Warfarin Sodium (Coumadin) 7.5 mg 1X WARF ONCE PO Last administered on 16:25; Start 06/18/16 at 16:00; Stop 06/18/16 at 16:01; Status DC Ondansetron HCl (Zofran) 4 mg PRN Q6HRS PRN IV NAUSEA/VOMITING Last administered on 06/19/16 03:08; Start 06/19/16 at 03:00 Morphine Sulfate 2 mg PRN Q2HR PRN IV PAIN Last administered on 06/20/16 08:06 ; Start 06/19/16 at 03:00; Stop 06/20/16 at 10:14; Status DC Warfarin Sodium 7.5 mg 7.5 mg 1X WARF ONCE PO ; Start 06/19/16 at 16:00; Stop 06/19/16 at 16:01; Status DC Amino Acids/ Glycerin/ Electrolytes (Procalamine) 1,000 ml @ 75 mls/hr [id number] IV Last administered on 06/23/16 01:06; Start 06/19/16 at 16:15; Stop at 10:24; Status DC Fentanyl Citrate (Fentanyl 2ml Vial) 50 mcg Q6HRS PRN IM BREAKTHROUGH PAIN; Start 06/20/16 at 10:15; Stop 06/20/16 at 11:08; Status DC Fentanyl Citrate (Fentanyl 2ml Vial) 50 mcg PRN Q6HRS PRN IV BREAKTHROUGH PAIN Last administered on 06/22/16 22:11; Start 06/20/16 at 11:15 Warfarin Sodium (Coumadin) 7.5 mg 1X WARF ONCE PO ; Start 06/20/16 at 16:00; Stop 06/20/16 at 16:01; Status DC Enoxaparin Sodium (Lovenox Per Pharmacy Treatment Dosing) 1 each PRN DAILY PRN MC SEE COMMENTS; Start 06/21/16 at 12:30; Stop 06/22/16 at 12:29; Status DC Enoxaparin Sodium 60 mg 60 mg Q12HR SQ Last administered on 06/22/16 21:13; Start 06/21/16 at 13:00; Stop 06/23/16 at 10:24; Status DC Bacitracin/Sodium Chloride (Iv Sodium Chloride 0.9% 1000ml Bag) 1,000 ml @ 1, 000 mls/hr 1X PERIOP ONCE IRR ; Start 06/22/16 at 09:00; Stop 06/22/16 at 09:59 ; Status DC Ondansetron HCl (Zofran) 4 mg PRN Q6HRS PRN IV Nausea; Start 06/22/16 at 09:00 ; Stop 06/22/16 at 18:00; Status DC Fentanyl Citrate (Fentanyl 2ml Vial) 25 mcg PRN Q5MIN PRN IV MILD PAIN; Start 06/22/16 at 09:00; Stop 06/22/16 at 18:00; Status DC Fentanyl Citrate (Fentanyl 2ml Vial) 50 mcg PRN Q5MIN PRN IV MODERATE PAIN Last administered on 06/22/16 17:20; Start 06/22/16 at 09:00; Stop 06/22/16 at 18:00; Status DC Morphine Sulfate 1 mg 1 mg PRN Q10MIN PRN IV SEVERE PAIN; Start 06/22/16 at 09: 00; Stop 06/22/16 at 18:00; Status DC Lactated Ringer's (Iv Lactated Ringers) 1,000 ml @ 30 mls/hr Q24H IV Last administered on 06/22/16 10:55; Start 06/22/16 at 08:52; Stop 06/22/16 at 20:51 ; Status DC Lidocaine HCl 2 ml 1X PRN PRN ID IV START; Start 06/22/16 at 09:00; Stop at 18:00; Status DC Hydromorphone HCl (Dilaudid) 0.5 mg PRN Q10MIN PRN IV SEV PAIN,Second choice; Start 06/22/16 at 09:00; Stop 06/22/16 at 18:00; Status DC Prochlorperazine Edisylate (Compazine) 5 mg PACU PRN PRN IV NAUSEA; Start 06/22 at 09:00; Stop 06/22/16 at 18:00; Status DC Bupivacaine HCl/ Epinephrine Bitart (Sensorcaine-Epi 0.25%-1:744186 Mpf) 30 ml STK-MED ONCE .ROUTE Last administered on 06/22/16 12:21; Start 06/22/16 at 09: 22; Stop 06/22/16 at 09:23; Status DC Cellulose 1 each STK-MED ONCE .ROUTE ; Start 06/22/16 at 09:22; Stop 06/22/16 at 09:23; Status DC Thrombin 20,000 unit STK-MED ONCE TP Last administered on 06/22/16 12:21; Start 06/22/16 at 09:22; Stop 06/22/16 at 09:23; Status DC Gelatin 1 each 1 each STK-MED ONCE .ROUTE Last administered on 06/22/16 12:21 ; Start 06/22/16 at 09:23; Stop 06/22/16 at 09:24; Status DC Propofol (Diprivan) 20 ml @ As Directed STK-MED ONCE IV ; Start 06/22/16 at 09: 57; Stop 06/22/16 at 09:58; Status DC Lidocaine HCl 100 mg STK-MED ONCE .ROUTE ; Start 06/22/16 at 09:57; Stop at 09:58; Status DC Rocuronium Fields (Zemuron) 50 mg STK-MED ONCE .ROUTE ; Start 06/22/16 at 09:57 ; Stop 06/22/16 at 09:58; Status DC Ondansetron HCl (Zofran) 4 mg STK-MED ONCE .ROUTE ; Start 06/22/16 at 09:58; Stop 06/22/16 at 09:59; Status DC Dexamethasone Sodium Phosphate (Decadron) 20 mg STK-MED ONCE .ROUTE ; Start at 09:58; Stop 06/22/16 at 09:59; Status DC Fentanyl Citrate 100 mcg 100 mcg STK-MED ONCE .ROUTE ; Start 06/22/16 at 09:59; Stop 06/22/16 at 10:00; Status DC Cefazolin Sodium/ Dextrose (Ancef 2gm Premix) 50 ml @ 100 mls/hr 1X PREOP IV Last administered on 06/22/16t 12:37; Start 06/22/16 at 10:15 Metoprolol Tartrate (Lopressor) 5 mg STK-MED ONCE .ROUTE ; Start 06/22/16 at 11: 05; Stop 06/22/16 at 11:06; Status DC Metoprolol Tartrate (Lopressor) 5 mg 1X ONCE IVP Last administered on t 11:12; Start 06/22/16 at 11:15; Stop 06/22/16 at 11:16; Status DC Ephedrine Sulfate 50 mg STK-MED ONCE IV ; Start 06/22/16 at 12:11; Stop at 12:12; Status DC Glycopyrrolate (Robinul) 1 mg STK-MED ONCE .ROUTE ; Start 06/22/16 at 12:40; Stop 06/22/16 at 12:41; Status DC Neostigmine Methylsulfate 5 mg STK-MED ONCE .ROUTE ; Start 06/22/16 at 12:40; Stop 06/22/16 at 12:41; Status DC Sevoflurane 60 ml 60 ml STK-MED ONCE IH ; Start 06/22/16 at 13:05; Stop at 13:06; Status DC Cefazolin Sodium/ Sodium Chloride (Ancef/Iv Sodium Chloride 0.9% 50ml) 50 ml @ 100 mls/hr Q8HRS IV Last administered on 06/24/16 06:05; Start 06/22/16 at 23: 00 Warfarin Sodium (Coumadin) 7.5 mg 1X WARF ONCE PO Last administered on 17:06; Start 06/23/16 at 16:00; Stop 06/23/16 at 16:01; Status DC Enoxaparin Sodium (Lovenox 60mg Syringe) 60 mg Q12HR SQ ; Start 06/24/16 at 21: 00 Active Scripts Active Reported Coumadin (Warfarin Sodium) 5 Mg Tablet 1 Tab PO DAILY Metoprolol Succinate ( Xl ) (Metoprolol Succinate) 25 Mg Tab.er.24h 25 Mg PO DAILY Vitals/I & O Vital Sign - Last 24 Hours 06/23/16 06/23/16 06/23/16 06/23/16 12:00 12:00 13:00 14:00 Temp 98.3 98.3 Pulse 80 82 80 Resp B/P 99/63 100/59 90/54 Pulse Ox 96 94 96 O2 Delivery Room Air Room Air Room Air Room Air 06/23/16 06/23/16 06/23/16 06/23/16 15:00 16:00 16:00 17:00 Temp 98.4 98.4 Pulse 72 86 81 Resp 05 18 16 B/P 90/58 96/57 95/62 Pulse Ox 96 96 96 O2 Delivery Room Air Room Air Room Air Room Air 06/23/16 06/23/16 06/23/16 06/23/16 18:00 19:00 20:00 20:00 Pulse 84 86 80 Resp B/P 91/61 96/58 92/58 Pulse Ox 95 96 O2 Delivery Room Air Room Air Room Air Room Air 06/23/16 06/23/16 06/23/16 06/23/16 21:00 22:00 23:00 23:05 Temp 98.6 97.9 98.6 97.9 Pulse 82 80 78 Resp 22 20 B/P 99/66 97/68 96/52 Pulse Ox 95 O2 Delivery Room Air Room Air Room Air 06/24/16 06/24/16 06/24/16 06/24/16 00:00 00:00 00:05 01:00 Pulse 82 70 Resp 16 B/P 95/55 91/51 Pulse Ox 95 95 95 O2 Delivery Room Air Room Air Room Air Room Air O2 Flow Rate 2.0 06/24/16 06/24/16 06/24/16 06/24/16 02:00 03:00 04:00 04:00 Temp 98.6 98.6 Pulse 78 72 62 Resp 18 20 20 B/P 90/56 97/57 97/62 Pulse Ox 97 96 97 O2 Delivery Room Air Room Air Room Air Room Air O2 Flow Rate 2.0 06/24/16 06/24/16 06/24/16 06/24/16 05:00 06:00 06:12 06:14 Pulse 61 64 Resp 24 15 15 B/P 101/65 81/52 101/61 Pulse Ox 97 96 96 O2 Delivery Room Air Room Air Room Air 06/24/16 06/24/16 06/24/16 06/24/16 07:14 07:34 07:51 09:00 Temp 98.5 98.5 Pulse 64 64 Resp 20 12 B/P 81/49 81/49 Pulse Ox 96 O2 Delivery Room Air Room Air 06/24/16 06/24/16 09:12 10:00 Temp 97.8 97.9 97.8 97.9 Pulse 68 69 Resp 22 21 B/P 99/62 100/64 Pulse Ox 97 98 O2 Delivery Room Air Room Air Intake and Output 06/23/16 06/23/16 06/24/16 15:00 23:00 07:00 Intake Total 860 ml 120 ml 300 ml Output Total 50 ml 408 ml 303 ml Balance 810 ml -288 ml -3 ml CONNIE ESTEVEZ MD Jun 24, 2016 11:22
--- NOTE | 2016-06-24 11:34 | PDOC ---
PROGRESS NOTES Assessment Problems Medical Problems: (1) Subdural hematoma Status: Acute (2) Supratherapeutic INR Status: Acute Bilateral SDH, now status post bilateral nela holes Headache, none now Metabolic encephalopathy, remains bright today. Marfan's syndrome, aortic and mitral valve disease/replacements. Left eye vision loss. Dysphagia, on nothing by mouth status Plan Follow dysphagia Continue fentanyl prn Keppra if seizures. Followup CT as per neurosurgery Subjective no pain Objective Vital Signs Date Time Temp Pulse Resp B/P Pulse Ox O2 Delivery O2 Flow Rate FiO2 06/24/16 11:00 98.0 72 20 90/69 99 Room Air 98.0 06/24/16 04:00 2.0 Intake and Output 06/24/16 07:00 Intake Total 1280 ml Output Total 761 ml Balance 519 ml Intake Oral 780 ml IV Total 500 ml Output Urine Total 750 ml Drainage Total 11 ml PHYSICAL EXAM Alert, follows commands, knows that he is in the hospital, does not know the date No hiccups Left cornea is scarred, right pupil reacts EOMI. CN: no focal findings. Muscle tone: normal. Muscle strength: 5-/5 DTR: 2+ Plantar reflex: flexor Gait: not examined in bed. Sensory exam: no abnormal findings. No cerebellar signs Review of Relevant I have reviewed the following items jordy (where applicable) has been applied. Labs Laboratory Tests Test 06/23/16 04:35 06/23/16 11:55 06/24/16 03:30 White Blood Count 7.8x10^3/uL (4.0-11.0) 6.9x10^3/uL (4.0-11.0) Red Blood Count 3.99x10^6/uL (4.30-5.70) 4.04x10^6/uL (4.30-5.70) Hemoglobin 12.0g/dL (13.0-17.5) 12.1g/dL (13.0-17.5) Hematocrit 35.4% (39.0-53.0) 35.4% (39.0-53.0) Mean Corpuscular Volume 89fL (79-100) 88fL (79-100) Mean Corpuscular Hemoglobin 30pg (25-35) 30pg (25-35) Mean Corpuscular Hemoglobin Concent 34g/dL (31-37) 34g/dL (31-37) Red Cell Distribution Width 13.2% (11.5-14.5) 13.2% (11.5-14.5) Platelet Count 223x10^3/uL (140-400) 233x10^3/uL (140-400) Neutrophils (%) (Auto) 82% (31-73) 60% (31-73) Lymphocytes (%) (Auto) 6% (24-48) 23% (24-48) Monocytes (%) (Auto) 12% (0-9) 12% (0-9) Eosinophils (%) (Auto) 0% (0-3) 4% (0-3) Basophils (%) (Auto) 0% (0-3) 1% (0-3) Neutrophils # (Auto) 6.4x10^3uL (1.8-7.7) 4.2x10^3uL (1.8-7.7) Lymphocytes # (Auto) 0.5x10^3/uL (1.0-4.8) 1.6x10^3/uL (1.0-4.8) Monocytes # (Auto) 0.9x10^3/uL (0.0-1.1) 0.8x10^3/uL (0.0-1.1) Eosinophils # (Auto) 0.0x10^3/uL (0.0-0.7) 0.3x10^3/uL (0.0-0.7) Basophils # (Auto) 0.0x10^3/uL (0.0-0.2) 0.1x10^3/uL (0.0-0.2) Sodium Level 136mmol/L (136-145) 139mmol/L (136-145) Potassium Level 4.5mmol/L (3.5-5.1) 3.8mmol/L (3.5-5.1) Chloride Level 102mmol/L (98-107) 105mmol/L (98-107) Carbon Dioxide Level 27mmol/L (21-32) 26mmol/L (21-32) Anion Gap 7 (6-14) 8 (6-14) Blood Urea Nitrogen 21mg/dL (8-26) 17mg/dL (8-26) Creatinine 0.8mg/dL (0.7-1.3) 0.8mg/dL (0.7-1.3) Estimated GFR (Cockcroft-Gault) 102.3 102.3 Glucose Level 115mg/dL (70-99) 87mg/dL (70-99) Calcium Level 8.5mg/dL (8.5-10.1) 8.3mg/dL (8.5-10.1) Prothrombin Time 14.3SEC (11.7-14.0) 13.0SEC (11.7-14.0) Prothromb Time International Ratio 1.2 (0.8-1.1) 1.0 (0.8-1.1) Laboratory Tests Test 06/23/16 11:55 06/24/16 03:30 Prothrombin Time 14.3SEC (11.7-14.0) 13.0SEC (11.7-14.0) Prothromb Time International Ratio 1.2 (0.8-1.1) 1.0 (0.8-1.1) White Blood Count 6.9x10^3/uL (4.0-11.0) Red Blood Count 4.04x10^6/uL (4.30-5.70) Hemoglobin 12.1g/dL (13.0-17.5) Hematocrit 35.4% (39.0-53.0) Mean Corpuscular Volume 88fL (79-100) Mean Corpuscular Hemoglobin 30pg (25-35) Mean Corpuscular Hemoglobin Concent 34g/dL (31-37) Red Cell Distribution Width 13.2% (11.5-14.5) Platelet Count 233x10^3/uL (140-400) Neutrophils (%) (Auto) 60% (31-73) Lymphocytes (%) (Auto) 23% (24-48) Monocytes (%) (Auto) 12% (0-9) Eosinophils (%) (Auto) 4% (0-3) Basophils (%) (Auto) 1% (0-3) Neutrophils # (Auto) 4.2x10^3uL (1.8-7.7) Lymphocytes # (Auto) 1.6x10^3/uL (1.0-4.8) Monocytes # (Auto) 0.8x10^3/uL (0.0-1.1) Eosinophils # (Auto) 0.3x10^3/uL (0.0-0.7) Basophils # (Auto) 0.1x10^3/uL (0.0-0.2) Sodium Level 139mmol/L (136-145) Potassium Level 3.8mmol/L (3.5-5.1) Chloride Level 105mmol/L (98-107) Carbon Dioxide Level 26mmol/L (21-32) Anion Gap 8 (6-14) Blood Urea Nitrogen 17mg/dL (8-26) Creatinine 0.8mg/dL (0.7-1.3) Estimated GFR (Cockcroft-Gault) 102.3 Glucose Level 87mg/dL (70-99) Calcium Level 8.3mg/dL (8.5-10.1) Microbiology 06/13/16 Urine Culture - Final, Complete 06/13/16 Urine Culture Result 1 (GLENN) - Final, Complete Medications Current Medications Sodium Chloride (Iv Sodium Chloride 0.9% 1000ml Bag) 1,000 ml @ 100 mls/hr 1X ONCE IV Last administered on 06/13/16 13:45; Start 06/13/16 at 13:45; Stop at 23:44; Status DC Phytonadione (Mephyton) 10 mg 1X ONCE PO Last administered on 06/13/16 15:03; Start 06/13/16 at 15:00; Stop 06/13/16 at 15:01; Status DC Ondansetron HCl 4 mg 4 mg PRN Q8HRS PRN IV NAUSEA/VOMITING; Start 06/13/16 at 16 :15; Stop 06/14/16 at 16:14; Status DC Sodium Chloride (Iv Sodium Chloride 0.9% 1000ml Bag) 1,000 ml @ 100 mls/hr Q10H IV Last administered on 06/14/16 05:49; Start 06/13/16 at 16:10; Stop at 13:20; Status DC Morphine Sulfate 2 mg 1X ONCE IV Last administered on 06/13/16 18:08; Start at 18:30; Stop 06/13/16 at 18:31; Status DC Oxycodone/ Acetaminophen (Percocet 5/325) 1 tab PRN Q4HRS PRN PO PAIN Last administered on 06/22/16 19:15; Start 06/13/16 at 18:00 Oxycodone/ Acetaminophen (Percocet 5/325) 2 tab PRN Q4HRS PRN PO PAIN Last administered on 06/24/16 06:14; Start 06/13/16 at 18:00 Metoprolol Succinate (Toprol Xl) 25 mg DAILY PO Last administered on 06/23/16 08:54; Start 06/14/16 at 09:00 Lorazepam 2 mg 2 mg PRN Q4HRS PRN IV ANXIETY / AGITATION Last administered on 01:06; Start 06/13/16 at 19:45 Levetiracetam 500 mg/Sodium Chloride 105 ml @ 400 mls/hr PRN Q12HRS PRN IV SEIZURES; Start 06/13/16 at 19:45 Potassium Chloride/Sodium Chloride (KCl 20 Meq-0.45% Nacl) 1,000 ml @ 100 mls/ hr Q10H IV Last administered on 06/17/16 03:24; Start 06/14/16 at 13:30; Stop 06/17/16 at 12:24; Status DC Warfarin Sodium (Coumadin Per Pharmacy) 1 each PRN DAILY PRN MC SEE COMMENTS Last administered on 06/24/16 11:25; Start 06/14/16 at 16:00 Warfarin Sodium 2.5 mg 2.5 mg 1X WARF ONCE PO ; Start 06/14/16 at 17:00; Stop at 17:01; Status Cancel Bacitracin/Sodium Chloride (Iv Sodium Chloride 0.9% 1000ml Bag) 1,000 ml @ 1, 000 mls/hr 1X PERIOP ONCE IRR Last administered on 06/15/16 12:41; Start at 10:00; Stop 06/15/16 at 10:59; Status DC Ondansetron HCl (Zofran) 4 mg PRN Q6HRS PRN IV Nausea; Start 06/15/16 at 10:00; Stop 06/16/16 at 09:59; Status DC Fentanyl Citrate (Fentanyl 2ml Vial) 25 mcg PRN Q5MIN PRN IV MILD PAIN; Start 06/15/16 at 10:00; Stop 06/16/16 at 09:59; Status DC Fentanyl Citrate (Fentanyl 2ml Vial) 50 mcg PRN Q5MIN PRN IV MODERATE PAIN; Start 06/15/16 at 10:00; Stop 06/16/16 at 09:59; Status DC Morphine Sulfate 1 mg 1 mg PRN Q10MIN PRN IV SEVERE PAIN; Start 06/15/16 at 10: 00; Stop 06/16/16 at 09:59; Status DC Lactated Ringer's (Iv Lactated Ringers) 1,000 ml @ 30 mls/hr Q24H IV ; Start at 09:47; Stop 06/15/16 at 21:46; Status DC Lidocaine HCl 2 ml 1X PRN PRN ID IV START; Start 06/15/16 at 10:00; Stop at 09:59; Status DC Hydromorphone HCl (Dilaudid) 0.5 mg PRN Q10MIN PRN IV SEV PAIN,Second choice; Start 06/15/16 at 10:00; Stop 06/16/16 at 09:59; Status DC Prochlorperazine Edisylate (Compazine) 5 mg PACU PRN PRN IV NAUSEA; Start at 10:00; Stop 06/16/16 at 09:59; Status DC Phytonadione (Vitamin K) 2 mg 1X ONCE SQ Last administered on 06/15/16t 11:21; Start 06/15/16 at 09:45; Stop 06/15/16 at 09:57; Status DC Dexamethasone Sodium Phosphate (Decadron) 20 mg STK-MED ONCE .ROUTE ; Start 06/15 at 10:26; Stop 06/15/16 at 10:27; Status DC Ondansetron HCl (Zofran) 4 mg STK-MED ONCE .ROUTE ; Start 06/15/16 at 10:26; Stop 06/15/16 at 10:27; Status DC Rocuronium [place] 50 mg 50 mg STK-MED ONCE .ROUTE ; Start 06/15/16 at 10:26; Stop 06/15/16 at 10:27; Status DC Propofol (Diprivan) 20 ml @ As Directed STK-MED ONCE IV ; Start 06/15/16 at 10:26 ; Stop 06/15/16 at 10:27; Status DC Lidocaine HCl 100 mg STK-MED ONCE .ROUTE ; Start 06/15/16 at 10:26; Stop 06/15/16 at 10:27; Status DC Fentanyl Citrate (Fentanyl 2ml Vial) 100 mcg STK-MED ONCE .ROUTE ; Start at 10:26; Stop 06/15/16 at 10:27; Status DC Thrombin 20,000 unit STK-MED ONCE TP Last administered on 06/15/16 12:41; Start 06/15/16 at 10:47; Stop 06/15/16 at 10:48; Status DC Gelatin (Gelfoam Size 100) 1 each STK-MED ONCE .ROUTE Last administered on 06/15 12:41; Start 06/15/16 at 10:48; Stop 06/15/16 at 10:49; Status DC Bupivacaine HCl/ Epinephrine Bitart (Sensorcaine-Epi 0.25%-1:005549 Mpf) 30 ml STK-MED ONCE .ROUTE Last administered on 06/15/16 12:41; Start 06/15/16 at 10:48 ; Stop 06/15/16 at 10:49; Status DC Cellulose 1 each STK-MED ONCE .ROUTE ; Start 06/15/16 at 10:49; Stop 06/15/16 at 10:50; Status DC Potassium Chloride 20 meq 20 meq 1X ONCE PO Last administered on 06/15/16 11: 21; Start 06/15/16 at 11:15; Stop 06/15/16 at 11:16; Status DC Cefazolin Sodium/ Dextrose (Ancef 2gm Premix) 50 ml @ 100 mls/hr 1X PREOP PRN IV PER PROTOCOL Last administered on 06/15/16 12:56; Start 06/16/16 at 06:00; Stop 06/16/16 at 18:00; Status DC Ephedrine Sulfate 50 mg STK-MED ONCE IV ; Start 06/15/16 at 13:04; Stop 06/15/16 at 13:05; Status DC Glycopyrrolate (Robinul) 1 mg STK-MED ONCE .ROUTE ; Start 06/15/16 at 13:39; Stop 06/15/16 at 13:40; Status DC Neostigmine Methylsulfate 5 mg STK-MED ONCE .ROUTE ; Start 06/15/16 at 13:39; Stop 06/15/16 at 13:40; Status DC Fentanyl Citrate (Fentanyl 2ml Vial) 100 mcg STK-MED ONCE .ROUTE ; Start at 13:55; Stop 06/15/16 at 13:56; Status DC Sevoflurane (Ultane) 30 ml STK-MED ONCE IH ; Start 06/15/16 at 13:55; Stop at 13:56; Status DC Sevoflurane (Ultane) 60 ml STK-MED ONCE IH ; Start 06/15/16 at 13:55; Stop at 13:56; Status DC Warfarin Sodium (Coumadin - No Dose Today) 1 each 1X WARF ONCE MC Last administered on 06/15/16 16:00; Start 06/15/16 at 16:00; Stop 06/15/16 at 16:01; Status DC Cefazolin Sodium/ Dextrose (Ancef 2gm Premix) 2 gm STK-MED ONCE IV ; Start at 13:00; Stop 06/16/16 at 08:05; Status DC Famotidine (Pepcid) 20 mg BID IVP ; Start 06/16/16 at 21:00; Stop 06/16/16 at 21 :00; Status DC Famotidine (Pepcid) 20 mg BID PO Last administered on 06/24/16 09:04; Start at 13:00 Warfarin Sodium (Coumadin) 5 mg 1X WARF ONCE PO Last administered on 18:15; Start 06/17/16 at 16:00; Stop 06/17/16 at 16:01; Status DC Warfarin Sodium (Coumadin) 7.5 mg 1X WARF ONCE PO Last administered on 16:25; Start 06/18/16 at 16:00; Stop 06/18/16 at 16:01; Status DC Ondansetron HCl (Zofran) 4 mg PRN Q6HRS PRN IV NAUSEA/VOMITING Last administered on 06/19/16 03:08; Start 06/19/16 at 03:00 Morphine Sulfate 2 mg PRN Q2HR PRN IV PAIN Last administered on 06/20/16 08:06 ; Start 06/19/16 at 03:00; Stop 06/20/16 at 10:14; Status DC Warfarin Sodium 7.5 mg 7.5 mg 1X WARF ONCE PO ; Start 06/19/16 at 16:00; Stop 06/19/16 at 16:01; Status DC Amino Acids/ Glycerin/ Electrolytes (Procalamine) 1,000 ml @ 75 mls/hr [id number] IV Last administered on 06/23/16 01:06; Start 06/19/16 at 16:15; Stop at 10:24; Status DC Fentanyl Citrate (Fentanyl 2ml Vial) 50 mcg Q6HRS PRN IM BREAKTHROUGH PAIN; Start 06/20/16 at 10:15; Stop 06/20/16 at 11:08; Status DC Fentanyl Citrate (Fentanyl 2ml Vial) 50 mcg PRN Q6HRS PRN IV BREAKTHROUGH PAIN Last administered on 06/22/16 22:11; Start 06/20/16 at 11:15 Warfarin Sodium (Coumadin) 7.5 mg 1X WARF ONCE PO ; Start 06/20/16 at 16:00; Stop 06/20/16 at 16:01; Status DC Enoxaparin Sodium (Lovenox Per Pharmacy Treatment Dosing) 1 each PRN DAILY PRN MC SEE COMMENTS; Start 06/21/16 at 12:30; Stop 06/22/16 at 12:29; Status DC Enoxaparin Sodium 60 mg 60 mg Q12HR SQ Last administered on 06/22/16 21:13; Start 06/21/16 at 13:00; Stop 06/23/16 at 10:24; Status DC Bacitracin/Sodium Chloride (Iv Sodium Chloride 0.9% 1000ml Bag) 1,000 ml @ 1, 000 mls/hr 1X PERIOP ONCE IRR ; Start 06/22/16 at 09:00; Stop 06/22/16 at 09:59 ; Status DC Ondansetron HCl (Zofran) 4 mg PRN Q6HRS PRN IV Nausea; Start 06/22/16 at 09:00 ; Stop 06/22/16 at 18:00; Status DC Fentanyl Citrate (Fentanyl 2ml Vial) 25 mcg PRN Q5MIN PRN IV MILD PAIN; Start 06/22/16 at 09:00; Stop 06/22/16 at 18:00; Status DC Fentanyl Citrate (Fentanyl 2ml Vial) 50 mcg PRN Q5MIN PRN IV MODERATE PAIN Last administered on 06/22/16 17:20; Start 06/22/16 at 09:00; Stop 06/22/16 at 18:00; Status DC Morphine Sulfate 1 mg 1 mg PRN Q10MIN PRN IV SEVERE PAIN; Start 06/22/16 at 09: 00; Stop 06/22/16 at 18:00; Status DC Lactated Ringer's (Iv Lactated Ringers) 1,000 ml @ 30 mls/hr Q24H IV Last administered on 06/22/16 10:55; Start 06/22/16 at 08:52; Stop 06/22/16 at 20:51 ; Status DC Lidocaine HCl 2 ml 1X PRN PRN ID IV START; Start 06/22/16 at 09:00; Stop at 18:00; Status DC Hydromorphone HCl (Dilaudid) 0.5 mg PRN Q10MIN PRN IV SEV PAIN,Second choice; Start 06/22/16 at 09:00; Stop 06/22/16 at 18:00; Status DC Prochlorperazine Edisylate (Compazine) 5 mg PACU PRN PRN IV NAUSEA; Start 06/22 at 09:00; Stop 06/22/16 at 18:00; Status DC Bupivacaine HCl/ Epinephrine Bitart (Sensorcaine-Epi 0.25%-1:[id number] Mpf) 30 ml STK-MED ONCE .ROUTE Last administered on 06/22/16 12:21; Start 06/22/16 at 09: 22; Stop 06/22/16 at 09:23; Status DC Cellulose 1 each STK-MED ONCE .ROUTE ; Start 06/22/16 at 09:22; Stop 06/22/16 at 09:23; Status DC Thrombin 20,000 unit STK-MED ONCE TP Last administered on 06/22/16 12:21; Start 06/22/16 at 09:22; Stop 06/22/16 at 09:23; Status DC Gelatin 1 each 1 each STK-MED ONCE .ROUTE Last administered on 06/22/16 12:21 ; Start 06/22/16 at 09:23; Stop 06/22/16 at 09:24; Status DC Propofol (Diprivan) 20 ml @ As Directed STK-MED ONCE IV ; Start 06/22/16 at 09: 57; Stop 06/22/16 at 09:58; Status DC Lidocaine HCl 100 mg STK-MED ONCE .ROUTE ; Start 06/22/16 at 09:57; Stop at 09:58; Status DC Rocuronium [place] (Zemuron) 50 mg STK-MED ONCE .ROUTE ; Start 06/22/16 at 09:57 ; Stop 06/22/16 at 09:58; Status DC Ondansetron HCl (Zofran) 4 mg STK-MED ONCE .ROUTE ; Start 06/22/16 at 09:58; Stop 06/22/16 at 09:59; Status DC Dexamethasone Sodium Phosphate (Decadron) 20 mg STK-MED ONCE .ROUTE ; Start at 09:58; Stop 06/22/16 at 09:59; Status DC Fentanyl Citrate 100 mcg 100 mcg STK-MED ONCE .ROUTE ; Start 06/22/16 at 09:59; Stop 06/22/16 at 10:00; Status DC Cefazolin Sodium/ Dextrose (Ancef 2gm Premix) 50 ml @ 100 mls/hr 1X PREOP IV Last administered on 06/22/16t 12:37; Start 06/22/16 at 10:15 Metoprolol Tartrate (Lopressor) 5 mg STK-MED ONCE .ROUTE ; Start 06/22/16 at 11: 05; Stop 06/22/16 at 11:06; Status DC Metoprolol Tartrate (Lopressor) 5 mg 1X ONCE IVP Last administered on t 11:12; Start 06/22/16 at 11:15; Stop 06/22/16 at 11:16; Status DC Ephedrine Sulfate 50 mg STK-MED ONCE IV ; Start 06/22/16 at 12:11; Stop at 12:12; Status DC Glycopyrrolate (Robinul) 1 mg STK-MED ONCE .ROUTE ; Start 06/22/16 at 12:40; Stop 06/22/16 at 12:41; Status DC Neostigmine Methylsulfate 5 mg STK-MED ONCE .ROUTE ; Start 06/22/16 at 12:40; Stop 06/22/16 at 12:41; Status DC Sevoflurane 60 ml 60 ml STK-MED ONCE IH ; Start 06/22/16 at 13:05; Stop at 13:06; Status DC Cefazolin Sodium/ Sodium Chloride (Ancef/Iv Sodium Chloride 0.9% 50ml) 50 ml @ 100 mls/hr Q8HRS IV Last administered on 06/24/16 06:05; Start 06/22/16 at 23: 00 Warfarin Sodium (Coumadin) 7.5 mg 1X WARF ONCE PO Last administered on 17:06; Start 06/23/16 at 16:00; Stop 06/23/16 at 16:01; Status DC Enoxaparin Sodium (Lovenox 60mg Syringe) 60 mg Q12HR SQ ; Start 06/24/16 at 21: 00 Warfarin Sodium (Coumadin) 7.5 mg 1X WARF ONCE PO ; Start 06/24/16 at 16:00; Stop 06/24/16 at 16:01 Active Scripts Active Reported Coumadin (Warfarin Sodium) 5 Mg Tablet 1 Tab PO DAILY Metoprolol Succinate ( Xl ) (Metoprolol Succinate) 25 Mg Tab.er.24h 25 Mg PO DAILY Vitals/I & O Vital Sign - Last 24 Hours 06/23/16 06/23/16 06/23/16 06/23/16 12:00 12:00 13:00 14:00 Temp 98.3 98.3 Pulse 80 82 80 Resp B/P 99/63 100/59 90/54 Pulse Ox 96 94 96 O2 Delivery Room Air Room Air Room Air Room Air 06/23/16 06/23/16 06/23/16 06/23/16 15:00 16:00 16:00 17:00 Temp 98.4 98.4 Pulse 72 86 81 Resp 05 18 16 B/P 90/58 96/57 95/62 Pulse Ox 96 96 96 O2 Delivery Room Air Room Air Room Air Room Air 06/23/16 06/23/16 06/23/16 06/23/16 18:00 19:00 20:00 20:00 Pulse 84 86 80 Resp B/P 91/61 96/58 92/58 Pulse Ox 95 96 O2 Delivery Room Air Room Air Room Air Room Air 06/23/16 06/23/16 06/23/16 06/23/16 21:00 22:00 23:00 23:05 Temp 98.6 97.9 98.6 97.9 Pulse 82 80 78 Resp 19 17 22 20 B/P 99/66 97/68 96/52 Pulse Ox 95 O2 Delivery Room Air Room Air Room Air 06/24/16 06/24/16 06/24/16 06/24/16 00:00 00:00 00:05 01:00 Pulse 82 70 Resp 18 16 B/P 95/55 91/51 Pulse Ox 95 95 95 O2 Delivery Room Air Room Air Room Air Room Air O2 Flow Rate 2.0 06/24/16 06/24/16 06/24/16 06/24/16 02:00 03:00 04:00 04:00 Temp 98.6 98.6 Pulse 78 72 62 Resp 18 20 20 B/P 90/56 97/57 97/62 Pulse Ox 97 96 97 O2 Delivery Room Air Room Air Room Air Room Air O2 Flow Rate 2.0 06/24/16 06/24/16 06/24/16 06/24/16 05:00 06:00 06:12 06:14 Pulse 61 64 Resp 24 15 15 B/P 101/65 81/52 101/61 Pulse Ox 97 96 96 O2 Delivery Room Air Room Air Room Air 06/24/16 06/24/16 06/24/16 06/24/16 07:14 07:34 07:51 09:00 Temp 98.5 98.5 Pulse 64 64 Resp 20 12 B/P 81/49 81/49 Pulse Ox 96 O2 Delivery Room Air Room Air 06/24/16 06/24/16 06/24/16 09:12 10:00 11:00 Temp 97.8 97.9 98.0 97.8 97.9 98.0 Pulse 68 69 72 Resp 22 21 20 B/P 99/62 100/64 90/69 Pulse Ox 97 98 99 O2 Delivery Room Air Room Air Room Air Intake and Output 06/23/16 06/23/16 06/24/16 15:00 23:00 07:00 Intake Total 860 ml 120 ml 300 ml Output Total 50 ml 408 ml 303 ml Balance 810 ml -288 ml -3 ml EDWARD AMBROSE MD Jun 24, 2016 11:34
[2016-06-24] MEDS: ONDANSETRON PF 4 MG/2 ML VIAL. IV PRN (13:23)
--- NOTE | 2016-06-24 13:37 | RAD ---
CT of the head without contrast, 06/24/2016: History: Follow-up subdural hematoma Noncontrast scans were obtained and compared to a study from 06/21/2016. A new nela hole has been placed in the right frontal region laterally, in addition to the left-sided nela hole. There is mild bilateral pneumocephalus anteriorly on a postsurgical basis. The previously seen acute right subdural hematoma has nearly completely resolved. There is a small residual extra-axial fluid on the left. It demonstrates mixed densities, although it is predominantly of low density. It is of similar size when compared to 06/21/2016 exam. The ventricles are within normal limits in size. There is no significant midline shift. No intra-axial hemorrhage is seen. IMPRESSION: 1. Interval drainage of the majority of the right subdural hemorrhage. 2. Stable residual left-sided subdural fluid collection of mixed densities. PQRS Compliance Statement: One or more of the following individualized dose reduction techniques were utilized for this examination: 1. Automated exposure control 2. Adjustment of the mA and/or kV according to patient size 3. Use of iterative reconstruction technique
[2016-06-24] MEDS ORDERED: WARFARIN 7.5 MG TABLET. PO ONE (16:00)
[2016-06-24] MEDS: ENOXAPARIN ** NOTE DOSE ** SYRINGE SQ SCH (22:43)
[2016-06-25 03:46] VITALS: BP 94/67
[2016-06-25 05:13] LABS: BASO # 0.1 x10^3/uL (0.0-0.2); BASO % 2 % (0-3); EOS % 7 % (0-3); HEMOGLOBIN 12.8 g/dL (13.0-17.5); LYMPH # 1.3 x10^3/uL (1.0-4.8); LYMPH % 22 % (24-48); MEAN CORPUSCULAR HEMOGLOBIN 30 pg (25-35); MEAN CORPUSCULAR HGB CONC 34 g/dL (31-37); MEAN CORPUSCULAR VOLUME 89 fL (79-100); MONO % 11 % (0-9); NEUT % 58 % (31-73); PLATELET COUNT 231 x10^3/uL (140-400); RED BLOOD COUNT 4.27 x10^6/uL (4.30-5.70); RED CELL DISTRIBUTION WIDTH 13.2 % (11.5-14.5)
[2016-06-25] MEDS: CEFAZOLIN SODIUM 1 GM in IV NORMAL SALINE 50ML 50 ML IV SCH ×3 (05:39→22:08)
[2016-06-25] MEDS: OXYCODONE/APAP 5/325 TABLET. PO PRN ×2 (05:39→19:57)
[2016-06-25 05:54] LABS: INR 1.3 (0.8-1.1); PROTHROMBIN TIME PATIENT 15.5 SEC (11.7-14.0)
[2016-06-25 05:54] LABS: CALCIUM 8.4 mg/dL (8.5-10.1); CREATININE 0.8 mg/dL (0.7-1.3); GFR 102.3; POTASSIUM 4.1 mmol/L (3.5-5.1)
[2016-06-25 07:00] VITALS: BP 88/47
[2016-06-25] MEDS: FAMOTIDINE 20 MG TABLET. PO SCH ×2 (08:14→19:57)
[2016-06-25] MEDS: METOPROLOL SUCC 24HR ER 25 MG TAB.ER.24H. PO SCH (08:14)
[2016-06-25] MEDS: ENOXAPARIN ** NOTE DOSE ** SYRINGE SQ SCH ×2 (08:17→19:59)
--- NOTE | 2016-06-25 08:58 | PDOC ---
PROGRESS NOTES Chief Complaint Chief Complaint Headaches , B SDH ASSESSMENT AND PLAN: 1. Acute, nontraumatic bilateral subdural hematomas: s/p bilat nela holes on 06/13, 06/16. 06/23. Dr Soto following 2. Metabolic encephalopathy: improved. Dr Leiva following 3. Marfan's syndrome; with hx of aortic and mitral valve replacements 4. Chronic anticoag (for AVR): coumadin restarted, subtherapeutic INR. managed by pharm 5. HTN: well controlled on current regimen 6. Dysphagia: currently NPO 7. L eye blindness 8. Dispo: home when therapeutic on coumadin, no recurrent bleed. OT/PT eval Vitals Vitals Vital Signs Date Time Temp Pulse Resp B/P Pulse Ox O2 Delivery O2 Flow Rate FiO2 06/25/16 06:40 16 Room Air 06/25/16 03:46 98.0 80 94/67 95 98.0 Physical Exam Physical Exam bilat temporal nela holes covered with gauze General: Alert, Cooperative, No acute distress, Other (Confused and weak) Heart: Regular rate Lungs: Clear, Other Abdomen: Normal bowel sounds, Soft, No tenderness Extremities: No clubbing, No edema Skin: No rashes, No breakdown Labs LABS Laboratory Tests Test 06/25/16 04:47 06/25/16 05:00 White Blood Count 6.0x10^3/uL (4.0-11.0) Red Blood Count 4.27x10^6/uL (4.30-5.70) Hemoglobin 12.8g/dL (13.0-17.5) Hematocrit 38.0% (39.0-53.0) Mean Corpuscular Volume 89fL (79-100) Mean Corpuscular Hemoglobin 30pg (25-35) Mean Corpuscular Hemoglobin Concent 34g/dL (31-37) Red Cell Distribution Width 13.2% (11.5-14.5) Platelet Count 231x10^3/uL (140-400) Neutrophils (%) (Auto) 58% (31-73) Lymphocytes (%) (Auto) 22% (24-48) Monocytes (%) (Auto) 11% (0-9) Eosinophils (%) (Auto) 7% (0-3) Basophils (%) (Auto) 2% (0-3) Neutrophils # (Auto) 3.5x10^3uL (1.8-7.7) Lymphocytes # (Auto) 1.3x10^3/uL (1.0-4.8) Monocytes # (Auto) 0.7x10^3/uL (0.0-1.1) Eosinophils # (Auto) 0.4x10^3/uL (0.0-0.7) Basophils # (Auto) 0.1x10^3/uL (0.0-0.2) Sodium Level 140mmol/L (136-145) Potassium Level 4.1mmol/L (3.5-5.1) Chloride Level 105mmol/L (98-107) Carbon Dioxide Level 28mmol/L (21-32) Anion Gap 7 (6-14) Blood Urea Nitrogen 11mg/dL (8-26) Creatinine 0.8mg/dL (0.7-1.3) Estimated GFR (Cockcroft-Gault) 102.3 Glucose Level 82mg/dL (70-99) Calcium Level 8.4mg/dL (8.5-10.1) Prothrombin Time 15.5SEC (11.7-14.0) Prothromb Time International Ratio 1.3 (0.8-1.1) Review of Systems Review of Systems mild REED at [facility], no other c/o Comment Review of Relevant I have reviewed the following items jordy (where applicable) has been applied. Labs Laboratory Tests Test 06/23/16 11:55 06/24/16 03:30 06/25/16 04:47 06/25/16 05:00 Prothrombin Time 14.3SEC (11.7-14.0) 13.0SEC (11.7-14.0) 15.5SEC (11.7-14.0) Prothromb Time International Ratio 1.2 (0.8-1.1) 1.0 (0.8-1.1) 1.3 (0.8-1.1) White Blood Count 6.9x10^3/uL (4.0-11.0) 6.0x10^3/uL (4.0-11.0) Red Blood Count 4.04x10^6/uL (4.30-5.70) 4.27x10^6/uL (4.30-5.70) Hemoglobin 12.1g/dL (13.0-17.5) 12.8g/dL (13.0-17.5) Hematocrit 35.4% (39.0-53.0) 38.0% (39.0-53.0) Mean Corpuscular Volume 88fL (79-100) 89fL (79-100) Mean Corpuscular Hemoglobin 30pg (25-35) 30pg (25-35) Mean Corpuscular Hemoglobin Concent 34g/dL (31-37) 34g/dL (31-37) Red Cell Distribution Width 13.2% (11.5-14.5) 13.2% (11.5-14.5) Platelet Count 233x10^3/uL (140-400) 231x10^3/uL (140-400) Neutrophils (%) (Auto) 60% (31-73) 58% (31-73) Lymphocytes (%) (Auto) 23% (24-48) 22% (24-48) Monocytes (%) (Auto) 12% (0-9) 11% (0-9) Eosinophils (%) (Auto) 4% (0-3) 7% (0-3) Basophils (%) (Auto) 1% (0-3) 2% (0-3) Neutrophils # (Auto) 4.2x10^3uL (1.8-7.7) 3.5x10^3uL (1.8-7.7) Lymphocytes # (Auto) 1.6x10^3/uL (1.0-4.8) 1.3x10^3/uL (1.0-4.8) Monocytes # (Auto) 0.8x10^3/uL (0.0-1.1) 0.7x10^3/uL (0.0-1.1) Eosinophils # (Auto) 0.3x10^3/uL (0.0-0.7) 0.4x10^3/uL (0.0-0.7) Basophils # (Auto) 0.1x10^3/uL (0.0-0.2) 0.1x10^3/uL (0.0-0.2) Sodium Level 139mmol/L (136-145) 140mmol/L (136-145) Potassium Level 3.8mmol/L (3.5-5.1) 4.1mmol/L (3.5-5.1) Chloride Level 105mmol/L (98-107) 105mmol/L (98-107) Carbon Dioxide Level 26mmol/L (21-32) 28mmol/L (21-32) Anion Gap 8 (6-14) 7 (6-14) Blood Urea Nitrogen 17mg/dL (8-26) 11mg/dL (8-26) Creatinine 0.8mg/dL (0.7-1.3) 0.8mg/dL (0.7-1.3) Estimated GFR (Cockcroft-Gault) 102.3 102.3 Glucose Level 87mg/dL (70-99) 82mg/dL (70-99) Calcium Level 8.3mg/dL (8.5-10.1) 8.4mg/dL (8.5-10.1) Laboratory Tests Test 06/25/16 04:47 06/25/16 05:00 White Blood Count 6.0x10^3/uL (4.0-11.0) Red Blood Count 4.27x10^6/uL (4.30-5.70) Hemoglobin 12.8g/dL (13.0-17.5) Hematocrit 38.0% (39.0-53.0) Mean Corpuscular Volume 89fL (79-100) Mean Corpuscular Hemoglobin 30pg (25-35) Mean Corpuscular Hemoglobin Concent 34g/dL (31-37) Red Cell Distribution Width 13.2% (11.5-14.5) Platelet Count 231x10^3/uL (140-400) Neutrophils (%) (Auto) 58% (31-73) Lymphocytes (%) (Auto) 22% (24-48) Monocytes (%) (Auto) 11% (0-9) Eosinophils (%) (Auto) 7% (0-3) Basophils (%) (Auto) 2% (0-3) Neutrophils # (Auto) 3.5x10^3uL (1.8-7.7) Lymphocytes # (Auto) 1.3x10^3/uL (1.0-4.8) Monocytes # (Auto) 0.7x10^3/uL (0.0-1.1) Eosinophils # (Auto) 0.4x10^3/uL (0.0-0.7) Basophils # (Auto) 0.1x10^3/uL (0.0-0.2) Sodium Level 140mmol/L (136-145) Potassium Level 4.1mmol/L (3.5-5.1) Chloride Level 105mmol/L (98-107) Carbon Dioxide Level 28mmol/L (21-32) Anion Gap 7 (6-14) Blood Urea Nitrogen 11mg/dL (8-26) Creatinine 0.8mg/dL (0.7-1.3) Estimated GFR (Cockcroft-Gault) 102.3 Glucose Level 82mg/dL (70-99) Calcium Level 8.4mg/dL (8.5-10.1) Prothrombin Time 15.5SEC (11.7-14.0) Prothromb Time International Ratio 1.3 (0.8-1.1) Microbiology 06/13/16 Urine Culture - Final, Complete 06/13/16 Urine Culture Result 1 (GLENN) - Final, Complete Medications Current Medications Sodium Chloride (Iv Sodium Chloride 0.9% 1000ml Bag) 1,000 ml @ 100 mls/hr 1X ONCE IV Last administered on 06/13/16 13:45; Start 06/13/16 at 13:45; Stop at 23:44; Status DC Phytonadione (Mephyton) 10 mg 1X ONCE PO Last administered on 06/13/16 15:03; Start 06/13/16 at 15:00; Stop 06/13/16 at 15:01; Status DC Ondansetron HCl 4 mg 4 mg PRN Q8HRS PRN IV NAUSEA/VOMITING; Start 06/13/16 at 16 :15; Stop 06/14/16 at 16:14; Status DC Sodium Chloride (Iv Sodium Chloride 0.9% 1000ml Bag) 1,000 ml @ 100 mls/hr Q10H IV Last administered on 06/14/16 05:49; Start 06/13/16 at 16:10; Stop at 13:20; Status DC Morphine Sulfate 2 mg 1X ONCE IV Last administered on 06/13/16 18:08; Start at 18:30; Stop 06/13/16 at 18:31; Status DC Oxycodone/ Acetaminophen (Percocet 5/325) 1 tab PRN Q4HRS PRN PO PAIN Last administered on 06/24/16 22:43; Start 06/13/16 at 18:00 Oxycodone/ Acetaminophen (Percocet 5/325) 2 tab PRN Q4HRS PRN PO PAIN Last administered on 06/25/16 05:39; Start 06/13/16 at 18:00 Metoprolol Succinate (Toprol Xl) 25 mg DAILY PO Last administered on 06/23/16 08:54; Start 06/14/16 at 09:00 Lorazepam 2 mg 2 mg PRN Q4HRS PRN IV ANXIETY / AGITATION Last administered on 01:06; Start 06/13/16 at 19:45 Levetiracetam 500 mg/Sodium Chloride 105 ml @ 400 mls/hr PRN Q12HRS PRN IV SEIZURES; Start 06/13/16 at 19:45 Potassium Chloride/Sodium Chloride (KCl 20 Meq-0.45% Nacl) 1,000 ml @ 100 mls/ hr Q10H IV Last administered on 06/17/16 03:24; Start 06/14/16 at 13:30; Stop 06/17/16 at 12:24; Status DC Warfarin Sodium (Coumadin Per Pharmacy) 1 each PRN DAILY PRN MC SEE COMMENTS Last administered on 06/24/16 11:25; Start 06/14/16 at 16:00 Warfarin Sodium 2.5 mg 2.5 mg 1X WARF ONCE PO ; Start 06/14/16 at 17:00; Stop at 17:01; Status Cancel Bacitracin/Sodium Chloride (Iv Sodium Chloride 0.9% 1000ml Bag) 1,000 ml @ 1, 000 mls/hr 1X PERIOP ONCE IRR Last administered on 06/15/16 12:41; Start at 10:00; Stop 06/15/16 at 10:59; Status DC Ondansetron HCl (Zofran) 4 mg PRN Q6HRS PRN IV Nausea; Start 06/15/16 at 10:00; Stop 06/16/16 at 09:59; Status DC Fentanyl Citrate (Fentanyl 2ml Vial) 25 mcg PRN Q5MIN PRN IV MILD PAIN; Start 06/15/16 at 10:00; Stop 06/16/16 at 09:59; Status DC Fentanyl Citrate (Fentanyl 2ml Vial) 50 mcg PRN Q5MIN PRN IV MODERATE PAIN; Start 06/15/16 at 10:00; Stop 06/16/16 at 09:59; Status DC Morphine Sulfate 1 mg 1 mg PRN Q10MIN PRN IV SEVERE PAIN; Start 06/15/16 at 10: 00; Stop 06/16/16 at 09:59; Status DC Lactated Ringer's (Iv Lactated Ringers) 1,000 ml @ 30 mls/hr Q24H IV ; Start at 09:47; Stop 06/15/16 at 21:46; Status DC Lidocaine HCl 2 ml 1X PRN PRN ID IV START; Start 06/15/16 at 10:00; Stop at 09:59; Status DC Hydromorphone HCl (Dilaudid) 0.5 mg PRN Q10MIN PRN IV SEV PAIN,Second choice; Start 06/15/16 at 10:00; Stop 06/16/16 at 09:59; Status DC Prochlorperazine Edisylate (Compazine) 5 mg PACU PRN PRN IV NAUSEA; Start at 10:00; Stop 06/16/16 at 09:59; Status DC Phytonadione (Vitamin K) 2 mg 1X ONCE SQ Last administered on 06/15/16t 11:21; Start 06/15/16 at 09:45; Stop 06/15/16 at 09:57; Status DC Dexamethasone Sodium Phosphate (Decadron) 20 mg STK-MED ONCE .ROUTE ; Start 06/15 at 10:26; Stop 06/15/16 at 10:27; Status DC Ondansetron HCl (Zofran) 4 mg STK-MED ONCE .ROUTE ; Start 06/15/16 at 10:26; Stop 06/15/16 at 10:27; Status DC Rocuronium [place] 50 mg 50 mg STK-MED ONCE .ROUTE ; Start 06/15/16 at 10:26; Stop 06/15/16 at 10:27; Status DC Propofol (Diprivan) 20 ml @ As Directed STK-MED ONCE IV ; Start 06/15/16 at 10:26 ; Stop 06/15/16 at 10:27; Status DC Lidocaine HCl 100 mg STK-MED ONCE .ROUTE ; Start 06/15/16 at 10:26; Stop 06/15/16 at 10:27; Status DC Fentanyl Citrate (Fentanyl 2ml Vial) 100 mcg STK-MED ONCE .ROUTE ; Start at 10:26; Stop 06/15/16 at 10:27; Status DC Thrombin 20,000 unit STK-MED ONCE TP Last administered on 06/15/16 12:41; Start 06/15/16 at 10:47; Stop 06/15/16 at 10:48; Status DC Gelatin (Gelfoam Size 100) 1 each STK-MED ONCE .ROUTE Last administered on 06/15 12:41; Start 06/15/16 at 10:48; Stop 06/15/16 at 10:49; Status DC Bupivacaine HCl/ Epinephrine Bitart (Sensorcaine-Epi 0.25%-1:664617 Mpf) 30 ml STK-MED ONCE .ROUTE Last administered on 06/15/16 12:41; Start 06/15/16 at 10:48 ; Stop 06/15/16 at 10:49; Status DC Cellulose 1 each STK-MED ONCE .ROUTE ; Start 06/15/16 at 10:49; Stop 06/15/16 at 10:50; Status DC Potassium Chloride 20 meq 20 meq 1X ONCE PO Last administered on 06/15/16 11: 21; Start 06/15/16 at 11:15; Stop 06/15/16 at 11:16; Status DC Cefazolin Sodium/ Dextrose (Ancef 2gm Premix) 50 ml @ 100 mls/hr 1X PREOP PRN IV PER PROTOCOL Last administered on 06/15/16 12:56; Start 06/16/16 at 06:00; Stop 06/16/16 at 18:00; Status DC Ephedrine Sulfate 50 mg STK-MED ONCE IV ; Start 06/15/16 at 13:04; Stop 06/15/16 at 13:05; Status DC Glycopyrrolate (Robinul) 1 mg STK-MED ONCE .ROUTE ; Start 06/15/16 at 13:39; Stop 06/15/16 at 13:40; Status DC Neostigmine Methylsulfate 5 mg STK-MED ONCE .ROUTE ; Start 06/15/16 at 13:39; Stop 06/15/16 at 13:40; Status DC Fentanyl Citrate (Fentanyl 2ml Vial) 100 mcg STK-MED ONCE .ROUTE ; Start at 13:55; Stop 06/15/16 at 13:56; Status DC Sevoflurane (Ultane) 30 ml STK-MED ONCE IH ; Start 06/15/16 at 13:55; Stop at 13:56; Status DC Sevoflurane (Ultane) 60 ml STK-MED ONCE IH ; Start 06/15/16 at 13:55; Stop at 13:56; Status DC Warfarin Sodium (Coumadin - No Dose Today) 1 each 1X WARF ONCE MC Last administered on 06/15/16 16:00; Start 06/15/16 at 16:00; Stop 06/15/16 at 16:01; Status DC Cefazolin Sodium/ Dextrose (Ancef 2gm Premix) 2 gm STK-MED ONCE IV ; Start at 13:00; Stop 06/16/16 at 08:05; Status DC Famotidine (Pepcid) 20 mg BID IVP ; Start 06/16/16 at 21:00; Stop 06/16/16 at 21 :00; Status DC Famotidine (Pepcid) 20 mg BID PO Last administered on 06/25/16 08:14; Start at 13:00 Warfarin Sodium (Coumadin) 5 mg 1X WARF ONCE PO Last administered on 18:15; Start 06/17/16 at 16:00; Stop 06/17/16 at 16:01; Status DC Warfarin Sodium (Coumadin) 7.5 mg 1X WARF ONCE PO Last administered on 16:25; Start 06/18/16 at 16:00; Stop 06/18/16 at 16:01; Status DC Ondansetron HCl (Zofran) 4 mg PRN Q6HRS PRN IV NAUSEA/VOMITING Last administered on 06/24/16 13:23; Start 06/19/16 at 03:00 Morphine Sulfate 2 mg PRN Q2HR PRN IV PAIN Last administered on 06/20/16 08:06 ; Start 06/19/16 at 03:00; Stop 06/20/16 at 10:14; Status DC Warfarin Sodium 7.5 mg 7.5 mg 1X WARF ONCE PO ; Start 06/19/16 at 16:00; Stop 06/19/16 at 16:01; Status DC Amino Acids/ Glycerin/ Electrolytes (Procalamine) 1,000 ml @ 75 mls/hr [id number] IV Last administered on 06/23/16 01:06; Start 06/19/16 at 16:15; Stop at 10:24; Status DC Fentanyl Citrate (Fentanyl 2ml Vial) 50 mcg Q6HRS PRN IM BREAKTHROUGH PAIN; Start 06/20/16 at 10:15; Stop 06/20/16 at 11:08; Status DC Fentanyl Citrate (Fentanyl 2ml Vial) 50 mcg PRN Q6HRS PRN IV BREAKTHROUGH PAIN Last administered on 06/22/16 22:11; Start 06/20/16 at 11:15 Warfarin Sodium (Coumadin) 7.5 mg 1X WARF ONCE PO ; Start 06/20/16 at 16:00; Stop 06/20/16 at 16:01; Status DC Enoxaparin Sodium (Lovenox Per Pharmacy Treatment Dosing) 1 each PRN DAILY PRN MC SEE COMMENTS; Start 06/21/16 at 12:30; Stop 06/22/16 at 12:29; Status DC Enoxaparin Sodium 60 mg 60 mg Q12HR SQ Last administered on 06/22/16 21:13; Start 06/21/16 at 13:00; Stop 06/23/16 at 10:24; Status DC Bacitracin/Sodium Chloride (Iv Sodium Chloride 0.9% 1000ml Bag) 1,000 ml @ 1, 000 mls/hr 1X PERIOP ONCE IRR ; Start 06/22/16 at 09:00; Stop 06/22/16 at 09:59 ; Status DC Ondansetron HCl (Zofran) 4 mg PRN Q6HRS PRN IV Nausea; Start 06/22/16 at 09:00 ; Stop 06/22/16 at 18:00; Status DC Fentanyl Citrate (Fentanyl 2ml Vial) 25 mcg PRN Q5MIN PRN IV MILD PAIN; Start 06/22/16 at 09:00; Stop 06/22/16 at 18:00; Status DC Fentanyl Citrate (Fentanyl 2ml Vial) 50 mcg PRN Q5MIN PRN IV MODERATE PAIN Last administered on 06/22/16 17:20; Start 06/22/16 at 09:00; Stop 06/22/16 at 18:00; Status DC Morphine Sulfate 1 mg 1 mg PRN Q10MIN PRN IV SEVERE PAIN; Start 06/22/16 at 09: 00; Stop 06/22/16 at 18:00; Status DC Lactated Ringer's (Iv Lactated Ringers) 1,000 ml @ 30 mls/hr Q24H IV Last administered on 06/22/16 10:55; Start 06/22/16 at 08:52; Stop 06/22/16 at 20:51 ; Status DC Lidocaine HCl 2 ml 1X PRN PRN ID IV START; Start 06/22/16 at 09:00; Stop at 18:00; Status DC Hydromorphone HCl (Dilaudid) 0.5 mg PRN Q10MIN PRN IV SEV PAIN,Second choice; Start 06/22/16 at 09:00; Stop 06/22/16 at 18:00; Status DC Prochlorperazine Edisylate (Compazine) 5 mg PACU PRN PRN IV NAUSEA; Start 06/22 at 09:00; Stop 06/22/16 at 18:00; Status DC Bupivacaine HCl/ Epinephrine Bitart (Sensorcaine-Epi 0.25%-1:776611 Mpf) 30 ml STK-MED ONCE .ROUTE Last administered on 06/22/16 12:21; Start 06/22/16 at 09: 22; Stop 06/22/16 at 09:23; Status DC Cellulose 1 each STK-MED ONCE .ROUTE ; Start 06/22/16 at 09:22; Stop 06/22/16 at 09:23; Status DC Thrombin 20,000 unit STK-MED ONCE TP Last administered on 06/22/16 12:21; Start 06/22/16 at 09:22; Stop 06/22/16 at 09:23; Status DC Gelatin 1 each 1 each STK-MED ONCE .ROUTE Last administered on 06/22/16 12:21 ; Start 06/22/16 at 09:23; Stop 06/22/16 at 09:24; Status DC Propofol (Diprivan) 20 ml @ As Directed STK-MED ONCE IV ; Start 06/22/16 at 09: 57; Stop 06/22/16 at 09:58; Status DC Lidocaine HCl 100 mg STK-MED ONCE .ROUTE ; Start 06/22/16 at 09:57; Stop at 09:58; Status DC Rocuronium [place] (Zemuron) 50 mg STK-MED ONCE .ROUTE ; Start 06/22/16 at 09:57 ; Stop 06/22/16 at 09:58; Status DC Ondansetron HCl (Zofran) 4 mg STK-MED ONCE .ROUTE ; Start 06/22/16 at 09:58; Stop 06/22/16 at 09:59; Status DC Dexamethasone Sodium Phosphate (Decadron) 20 mg STK-MED ONCE .ROUTE ; Start at 09:58; Stop 06/22/16 at 09:59; Status DC Fentanyl Citrate 100 mcg 100 mcg STK-MED ONCE .ROUTE ; Start 06/22/16 at 09:59; Stop 06/22/16 at 10:00; Status DC Cefazolin Sodium/ Dextrose (Ancef 2gm Premix) 50 ml @ 100 mls/hr 1X PREOP IV Last administered on 06/22/16 12:37; Start 06/22/16 at 10:15 Metoprolol Tartrate (Lopressor) 5 mg STK-MED ONCE .ROUTE ; Start 06/22/16 at 11: 05; Stop 06/22/16 at 11:06; Status DC Metoprolol Tartrate (Lopressor) 5 mg 1X ONCE IVP Last administered on 11:12; Start 06/22/16 at 11:15; Stop 06/22/16 at 11:16; Status DC Ephedrine Sulfate 50 mg STK-MED ONCE IV ; Start 06/22/16 at 12:11; Stop at 12:12; Status DC Glycopyrrolate (Robinul) 1 mg STK-MED ONCE .ROUTE ; Start 06/22/16 at 12:40; Stop 06/22/16 at 12:41; Status DC Neostigmine Methylsulfate 5 mg STK-MED ONCE .ROUTE ; Start 06/22/16 at 12:40; Stop 06/22/16 at 12:41; Status DC Sevoflurane 60 ml 60 ml STK-MED ONCE IH ; Start 06/22/16 at 13:05; Stop at 13:06; Status DC Cefazolin Sodium/ Sodium Chloride (Ancef/Iv Sodium Chloride 0.9% 50ml) 50 ml @ 100 mls/hr Q8HRS IV Last administered on 06/25/16 05:39; Start 06/22/16 at 23: 00 Warfarin Sodium (Coumadin) 7.5 mg 1X WARF ONCE PO Last administered on 17:06; Start 06/23/16 at 16:00; Stop 06/23/16 at 16:01; Status DC Enoxaparin Sodium (Lovenox 60mg Syringe) 60 mg Q12HR SQ Last administered on 08:17; Start 06/24/16 at 21:00 Warfarin Sodium (Coumadin) 7.5 mg 1X WARF ONCE PO Last administered on 15:35; Start 06/24/16 at 16:00; Stop 06/24/16 at 16:01; Status DC Active Scripts Active Reported Coumadin (Warfarin Sodium) 5 Mg Tablet 1 Tab PO DAILY Metoprolol Succinate ( Xl ) (Metoprolol Succinate) 25 Mg Tab.er.24h 25 Mg PO DAILY Vitals/I & O Vital Sign - Last 24 Hours 06/24/16 06/24/16 06/24/16 06/24/16 09:00 09:12 10:00 11:00 Temp 97.8 97.9 98.0 97.8 97.9 98.0 Pulse 64 68 69 72 Resp 22 21 20 B/P 81/49 99/62 100/64 90/69 Pulse Ox 97 98 99 O2 Delivery Room Air Room Air Room Air 06/24/16 06/24/16 06/24/16 06/24/16 12:12 12:12 13:00 14:00 Temp 98.6 97.9 98.6 97.9 Pulse 76 74 73 Resp 21 18 14 B/P 91/62 105/63 94/57 Pulse Ox 97 95 97 O2 Delivery Room Air Room Air Room Air 06/24/16 06/24/16 06/24/16 06/24/16 15:00 15:34 16:15 19:10 Temp 97.8 97.8 97.9 97.8 97.8 97.9 Pulse 72 70 75 Resp 12 16 16 B/P 112/70 115/69 96/63 Pulse Ox 97 96 95 O2 Delivery Room Air Room Air Room Air Room Air 06/24/16 06/24/16 06/24/16 06/24/16 20:00 22:43 23:47 23:48 Temp 97.5 97.5 Pulse 72 Resp 16 20 16 B/P 109/70 Pulse Ox 95 O2 Delivery Room Air Room Air Room Air Room Air 06/25/16 06/25/16 06/25/16 03:46 05:39 06:40 Temp 98.0 98.0 Pulse 80 Resp 16 16 16 B/P 94/67 Pulse Ox 95 O2 Delivery Room Air Room Air Room Air Intake and Output 06/24/16 06/24/16 06/25/16 15:00 23:00 07:00 Intake Total 1010 ml 537 ml Output Total 425 ml 750 ml 1000 ml Balance 585 ml -750 ml -463 ml JOSSELYN MORRIS MD Jun 25, 2016 08:58
--- NOTE | 2016-06-25 09:34 | PDOC ---
PROGRESS NOTES Subjective Subjective resting in bed denies headache no complaints Objective Objective Vital Signs Date Time Temp Pulse Resp B/P Pulse Ox O2 Delivery O2 Flow Rate FiO2 06/25/16 07:00 97.9 63 18 88/47 96 Room Air 97.9 06/24/16 04:00 2.0 Intake and Output 06/25/16 07:00 Intake Total 1547 ml Output Total 2175 ml Balance -628 ml Intake Oral 1010 ml Other 537 ml Output Urine Total 2175 ml Physical Exam General: Alert, Cooperative, No acute distress MUSCULOSKELETAL: Other (MIRANDA) Skin: Other (dressings intact and dry) Assessment Assessment Problems Medical Problems: (1) Subdural hematoma Status: Acute (2) Supratherapeutic INR Status: Acute Plan Plan of Care PT, encouraged increased activity as tolerated Coumadin has been resumed Comment Review of Relevant I have reviewed the following items jordy (where applicable) has been applied. Labs Laboratory Tests Test 06/23/16 11:55 06/24/16 03:30 06/25/16 04:47 06/25/16 05:00 Prothrombin Time 14.3SEC (11.7-14.0) 13.0SEC (11.7-14.0) 15.5SEC (11.7-14.0) Prothromb Time International Ratio 1.2 (0.8-1.1) 1.0 (0.8-1.1) 1.3 (0.8-1.1) White Blood Count 6.9x10^3/uL (4.0-11.0) 6.0x10^3/uL (4.0-11.0) Red Blood Count 4.04x10^6/uL (4.30-5.70) 4.27x10^6/uL (4.30-5.70) Hemoglobin 12.1g/dL (13.0-17.5) 12.8g/dL (13.0-17.5) Hematocrit 35.4% (39.0-53.0) 38.0% (39.0-53.0) Mean Corpuscular Volume 88fL (79-100) 89fL (79-100) Mean Corpuscular Hemoglobin 30pg (25-35) 30pg (25-35) Mean Corpuscular Hemoglobin Concent 34g/dL (31-37) 34g/dL (31-37) Red Cell Distribution Width 13.2% (11.5-14.5) 13.2% (11.5-14.5) Platelet Count 233x10^3/uL (140-400) 231x10^3/uL (140-400) Neutrophils (%) (Auto) 60% (31-73) 58% (31-73) Lymphocytes (%) (Auto) 23% (24-48) 22% (24-48) Monocytes (%) (Auto) 12% (0-9) 11% (0-9) Eosinophils (%) (Auto) 4% (0-3) 7% (0-3) Basophils (%) (Auto) 1% (0-3) 2% (0-3) Neutrophils # (Auto) 4.2x10^3uL (1.8-7.7) 3.5x10^3uL (1.8-7.7) Lymphocytes # (Auto) 1.6x10^3/uL (1.0-4.8) 1.3x10^3/uL (1.0-4.8) Monocytes # (Auto) 0.8x10^3/uL (0.0-1.1) 0.7x10^3/uL (0.0-1.1) Eosinophils # (Auto) 0.3x10^3/uL (0.0-0.7) 0.4x10^3/uL (0.0-0.7) Basophils # (Auto) 0.1x10^3/uL (0.0-0.2) 0.1x10^3/uL (0.0-0.2) Sodium Level 139mmol/L (136-145) 140mmol/L (136-145) Potassium Level 3.8mmol/L (3.5-5.1) 4.1mmol/L (3.5-5.1) Chloride Level 105mmol/L (98-107) 105mmol/L (98-107) Carbon Dioxide Level 26mmol/L (21-32) 28mmol/L (21-32) Anion Gap 8 (6-14) 7 (6-14) Blood Urea Nitrogen 17mg/dL (8-26) 11mg/dL (8-26) Creatinine 0.8mg/dL (0.7-1.3) 0.8mg/dL (0.7-1.3) Estimated GFR (Cockcroft-Gault) 102.3 102.3 Glucose Level 87mg/dL (70-99) 82mg/dL (70-99) Calcium Level 8.3mg/dL (8.5-10.1) 8.4mg/dL (8.5-10.1) Laboratory Tests Test 06/25/16 04:47 06/25/16 05:00 White Blood Count 6.0x10^3/uL (4.0-11.0) Red Blood Count 4.27x10^6/uL (4.30-5.70) Hemoglobin 12.8g/dL (13.0-17.5) Hematocrit 38.0% (39.0-53.0) Mean Corpuscular Volume 89fL (79-100) Mean Corpuscular Hemoglobin 30pg (25-35) Mean Corpuscular Hemoglobin Concent 34g/dL (31-37) Red Cell Distribution Width 13.2% (11.5-14.5) Platelet Count 231x10^3/uL (140-400) Neutrophils (%) (Auto) 58% (31-73) Lymphocytes (%) (Auto) 22% (24-48) Monocytes (%) (Auto) 11% (0-9) Eosinophils (%) (Auto) 7% (0-3) Basophils (%) (Auto) 2% (0-3) Neutrophils # (Auto) 3.5x10^3uL (1.8-7.7) Lymphocytes # (Auto) 1.3x10^3/uL (1.0-4.8) Monocytes # (Auto) 0.7x10^3/uL (0.0-1.1) Eosinophils # (Auto) 0.4x10^3/uL (0.0-0.7) Basophils # (Auto) 0.1x10^3/uL (0.0-0.2) Sodium Level 140mmol/L (136-145) Potassium Level 4.1mmol/L (3.5-5.1) Chloride Level 105mmol/L (98-107) Carbon Dioxide Level 28mmol/L (21-32) Anion Gap 7 (6-14) Blood Urea Nitrogen 11mg/dL (8-26) Creatinine 0.8mg/dL (0.7-1.3) Estimated GFR (Cockcroft-Gault) 102.3 Glucose Level 82mg/dL (70-99) Calcium Level 8.4mg/dL (8.5-10.1) Prothrombin Time 15.5SEC (11.7-14.0) Prothromb Time International Ratio 1.3 (0.8-1.1) Microbiology 06/13/16 Urine Culture - Final, Complete 06/13/16 Urine Culture Result 1 (GLENN) - Final, Complete Medications Current Medications Sodium Chloride (Iv Sodium Chloride 0.9% 1000ml Bag) 1,000 ml @ 100 mls/hr 1X ONCE IV Last administered on 06/13/16 13:45; Start 06/13/16 at 13:45; Stop at 23:44; Status DC Phytonadione (Mephyton) 10 mg 1X ONCE PO Last administered on 06/13/16 15:03; Start 06/13/16 at 15:00; Stop 06/13/16 at 15:01; Status DC Ondansetron HCl 4 mg 4 mg PRN Q8HRS PRN IV NAUSEA/VOMITING; Start 06/13/16 at 16 :15; Stop 06/14/16 at 16:14; Status DC Sodium Chloride (Iv Sodium Chloride 0.9% 1000ml Bag) 1,000 ml @ 100 mls/hr Q10H IV Last administered on 06/14/16 05:49; Start 06/13/16 at 16:10; Stop at 13:20; Status DC Morphine Sulfate 2 mg 1X ONCE IV Last administered on 06/13/16 18:08; Start at 18:30; Stop 06/13/16 at 18:31; Status DC Oxycodone/ Acetaminophen (Percocet 5/325) 1 tab PRN Q4HRS PRN PO PAIN Last administered on 06/24/16 22:43; Start 06/13/16 at 18:00 Oxycodone/ Acetaminophen (Percocet 5/325) 2 tab PRN Q4HRS PRN PO PAIN Last administered on 06/25/16 05:39; Start 06/13/16 at 18:00 Metoprolol Succinate (Toprol Xl) 25 mg DAILY PO Last administered on 06/23/16 08:54; Start 06/14/16 at 09:00 Lorazepam 2 mg 2 mg PRN Q4HRS PRN IV ANXIETY / AGITATION Last administered on 01:06; Start 06/13/16 at 19:45 Levetiracetam 500 mg/Sodium Chloride 105 ml @ 400 mls/hr PRN Q12HRS PRN IV SEIZURES; Start 06/13/16 at 19:45 Potassium Chloride/Sodium Chloride (KCl 20 Meq-0.45% Nacl) 1,000 ml @ 100 mls/ hr Q10H IV Last administered on 06/17/16 03:24; Start 06/14/16 at 13:30; Stop 06/17/16 at 12:24; Status DC Warfarin Sodium (Coumadin Per Pharmacy) 1 each PRN DAILY PRN MC SEE COMMENTS Last administered on 06/24/16 11:25; Start 06/14/16 at 16:00 Warfarin Sodium 2.5 mg 2.5 mg 1X WARF ONCE PO ; Start 06/14/16 at 17:00; Stop at 17:01; Status Cancel Bacitracin/Sodium Chloride (Iv Sodium Chloride 0.9% 1000ml Bag) 1,000 ml @ 1, 000 mls/hr 1X PERIOP ONCE IRR Last administered on 06/15/16 12:41; Start at 10:00; Stop 06/15/16 at 10:59; Status DC Ondansetron HCl (Zofran) 4 mg PRN Q6HRS PRN IV Nausea; Start 06/15/16 at 10:00; Stop 06/16/16 at 09:59; Status DC Fentanyl Citrate (Fentanyl 2ml Vial) 25 mcg PRN Q5MIN PRN IV MILD PAIN; Start 06/15/16 at 10:00; Stop 06/16/16 at 09:59; Status DC Fentanyl Citrate (Fentanyl 2ml Vial) 50 mcg PRN Q5MIN PRN IV MODERATE PAIN; Start 06/15/16 at 10:00; Stop 06/16/16 at 09:59; Status DC Morphine Sulfate 1 mg 1 mg PRN Q10MIN PRN IV SEVERE PAIN; Start 06/15/16 at 10: 00; Stop 06/16/16 at 09:59; Status DC Lactated Ringer's (Iv Lactated Ringers) 1,000 ml @ 30 mls/hr Q24H IV ; Start at 09:47; Stop 06/15/16 at 21:46; Status DC Lidocaine HCl 2 ml 1X PRN PRN ID IV START; Start 06/15/16 at 10:00; Stop at 09:59; Status DC Hydromorphone HCl (Dilaudid) 0.5 mg PRN Q10MIN PRN IV SEV PAIN,Second choice; Start 06/15/16 at 10:00; Stop 06/16/16 at 09:59; Status DC Prochlorperazine Edisylate (Compazine) 5 mg PACU PRN PRN IV NAUSEA; Start at 10:00; Stop 06/16/16 at 09:59; Status DC Phytonadione (Vitamin K) 2 mg 1X ONCE SQ Last administered on 06/15/16t 11:21; Start 06/15/16 at 09:45; Stop 06/15/16 at 09:57; Status DC Dexamethasone Sodium Phosphate (Decadron) 20 mg STK-MED ONCE .ROUTE ; Start 06/15 at 10:26; Stop 06/15/16 at 10:27; Status DC Ondansetron HCl (Zofran) 4 mg STK-MED ONCE .ROUTE ; Start 06/15/16 at 10:26; Stop 06/15/16 at 10:27; Status DC Rocuronium [place] 50 mg 50 mg STK-MED ONCE .ROUTE ; Start 06/15/16 at 10:26; Stop 06/15/16 at 10:27; Status DC Propofol (Diprivan) 20 ml @ As Directed STK-MED ONCE IV ; Start 06/15/16 at 10:26 ; Stop 06/15/16 at 10:27; Status DC Lidocaine HCl 100 mg STK-MED ONCE .ROUTE ; Start 06/15/16 at 10:26; Stop 06/15/16 at 10:27; Status DC Fentanyl Citrate (Fentanyl 2ml Vial) 100 mcg STK-MED ONCE .ROUTE ; Start at 10:26; Stop 06/15/16 at 10:27; Status DC Thrombin 20,000 unit STK-MED ONCE TP Last administered on 06/15/16 12:41; Start 06/15/16 at 10:47; Stop 06/15/16 at 10:48; Status DC Gelatin (Gelfoam Size 100) 1 each STK-MED ONCE .ROUTE Last administered on 06/15 12:41; Start 06/15/16 at 10:48; Stop 06/15/16 at 10:49; Status DC Bupivacaine HCl/ Epinephrine Bitart (Sensorcaine-Epi 0.25%-1:567935 Mpf) 30 ml STK-MED ONCE .ROUTE Last administered on 06/15/16 12:41; Start 06/15/16 at 10:48 ; Stop 06/15/16 at 10:49; Status DC Cellulose 1 each STK-MED ONCE .ROUTE ; Start 06/15/16 at 10:49; Stop 06/15/16 at 10:50; Status DC Potassium Chloride 20 meq 20 meq 1X ONCE PO Last administered on 06/15/16 11: 21; Start 06/15/16 at 11:15; Stop 06/15/16 at 11:16; Status DC Cefazolin Sodium/ Dextrose (Ancef 2gm Premix) 50 ml @ 100 mls/hr 1X PREOP PRN IV PER PROTOCOL Last administered on 06/15/16 12:56; Start 06/16/16 at 06:00; Stop 06/16/16 at 18:00; Status DC Ephedrine Sulfate 50 mg STK-MED ONCE IV ; Start 06/15/16 at 13:04; Stop 06/15/16 at 13:05; Status DC Glycopyrrolate (Robinul) 1 mg STK-MED ONCE .ROUTE ; Start 06/15/16 at 13:39; Stop 06/15/16 at 13:40; Status DC Neostigmine Methylsulfate 5 mg STK-MED ONCE .ROUTE ; Start 06/15/16 at 13:39; Stop 06/15/16 at 13:40; Status DC Fentanyl Citrate (Fentanyl 2ml Vial) 100 mcg STK-MED ONCE .ROUTE ; Start at 13:55; Stop 06/15/16 at 13:56; Status DC Sevoflurane (Ultane) 30 ml STK-MED ONCE IH ; Start 06/15/16 at 13:55; Stop at 13:56; Status DC Sevoflurane (Ultane) 60 ml STK-MED ONCE IH ; Start 06/15/16 at 13:55; Stop at 13:56; Status DC Warfarin Sodium (Coumadin - No Dose Today) 1 each 1X WARF ONCE MC Last administered on 06/15/16 16:00; Start 06/15/16 at 16:00; Stop 06/15/16 at 16:01; Status DC Cefazolin Sodium/ Dextrose (Ancef 2gm Premix) 2 gm STK-MED ONCE IV ; Start at 13:00; Stop 06/16/16 at 08:05; Status DC Famotidine (Pepcid) 20 mg BID IVP ; Start 06/16/16 at 21:00; Stop 06/16/16 at 21 :00; Status DC Famotidine (Pepcid) 20 mg BID PO Last administered on 06/25/16 08:14; Start at 13:00 Warfarin Sodium (Coumadin) 5 mg 1X WARF ONCE PO Last administered on 18:15; Start 06/17/16 at 16:00; Stop 06/17/16 at 16:01; Status DC Warfarin Sodium (Coumadin) 7.5 mg 1X WARF ONCE PO Last administered on 16:25; Start 06/18/16 at 16:00; Stop 06/18/16 at 16:01; Status DC Ondansetron HCl (Zofran) 4 mg PRN Q6HRS PRN IV NAUSEA/VOMITING Last administered on 06/24/16 13:23; Start 06/19/16 at 03:00 Morphine Sulfate 2 mg PRN Q2HR PRN IV PAIN Last administered on 06/20/16 08:06 ; Start 06/19/16 at 03:00; Stop 06/20/16 at 10:14; Status DC Warfarin Sodium 7.5 mg 7.5 mg 1X WARF ONCE PO ; Start 06/19/16 at 16:00; Stop 06/19/16 at 16:01; Status DC Amino Acids/ Glycerin/ Electrolytes (Procalamine) 1,000 ml @ 75 mls/hr [id number] IV Last administered on 06/23/16 01:06; Start 06/19/16 at 16:15; Stop at 10:24; Status DC Fentanyl Citrate (Fentanyl 2ml Vial) 50 mcg Q6HRS PRN IM BREAKTHROUGH PAIN; Start 06/20/16 at 10:15; Stop 06/20/16 at 11:08; Status DC Fentanyl Citrate (Fentanyl 2ml Vial) 50 mcg PRN Q6HRS PRN IV BREAKTHROUGH PAIN Last administered on 06/22/16 22:11; Start 06/20/16 at 11:15 Warfarin Sodium (Coumadin) 7.5 mg 1X WARF ONCE PO ; Start 06/20/16 at 16:00; Stop 06/20/16 at 16:01; Status DC Enoxaparin Sodium (Lovenox Per Pharmacy Treatment Dosing) 1 each PRN DAILY PRN MC SEE COMMENTS; Start 06/21/16 at 12:30; Stop 06/22/16 at 12:29; Status DC Enoxaparin Sodium 60 mg 60 mg Q12HR SQ Last administered on 06/22/16 21:13; Start 06/21/16 at 13:00; Stop 06/23/16 at 10:24; Status DC Bacitracin/Sodium Chloride (Iv Sodium Chloride 0.9% 1000ml Bag) 1,000 ml @ 1, 000 mls/hr 1X PERIOP ONCE IRR ; Start 06/22/16 at 09:00; Stop 06/22/16 at 09:59 ; Status DC Ondansetron HCl (Zofran) 4 mg PRN Q6HRS PRN IV Nausea; Start 06/22/16 at 09:00 ; Stop 06/22/16 at 18:00; Status DC Fentanyl Citrate (Fentanyl 2ml Vial) 25 mcg PRN Q5MIN PRN IV MILD PAIN; Start 06/22/16 at 09:00; Stop 06/22/16 at 18:00; Status DC Fentanyl Citrate (Fentanyl 2ml Vial) 50 mcg PRN Q5MIN PRN IV MODERATE PAIN Last administered on 06/22/16 17:20; Start 06/22/16 at 09:00; Stop 06/22/16 at 18:00; Status DC Morphine Sulfate 1 mg 1 mg PRN Q10MIN PRN IV SEVERE PAIN; Start 06/22/16 at 09: 00; Stop 06/22/16 at 18:00; Status DC Lactated Ringer's (Iv Lactated Ringers) 1,000 ml @ 30 mls/hr Q24H IV Last administered on 06/22/16 10:55; Start 06/22/16 at 08:52; Stop 06/22/16 at 20:51 ; Status DC Lidocaine HCl 2 ml 1X PRN PRN ID IV START; Start 06/22/16 at 09:00; Stop at 18:00; Status DC Hydromorphone HCl (Dilaudid) 0.5 mg PRN Q10MIN PRN IV SEV PAIN,Second choice; Start 06/22/16 at 09:00; Stop 06/22/16 at 18:00; Status DC Prochlorperazine Edisylate (Compazine) 5 mg PACU PRN PRN IV NAUSEA; Start 06/22 at 09:00; Stop 06/22/16 at 18:00; Status DC Bupivacaine HCl/ Epinephrine Bitart (Sensorcaine-Epi 0.25%-1:824494 Mpf) 30 ml STK-MED ONCE .ROUTE Last administered on 06/22/16 12:21; Start 06/22/16 at 09: 22; Stop 06/22/16 at 09:23; Status DC Cellulose 1 each STK-MED ONCE .ROUTE ; Start 06/22/16 at 09:22; Stop 06/22/16 at 09:23; Status DC Thrombin 20,000 unit STK-MED ONCE TP Last administered on 06/22/16 12:21; Start 06/22/16 at 09:22; Stop 06/22/16 at 09:23; Status DC Gelatin 1 each 1 each STK-MED ONCE .ROUTE Last administered on 06/22/16 12:21 ; Start 06/22/16 at 09:23; Stop 06/22/16 at 09:24; Status DC Propofol (Diprivan) 20 ml @ As Directed STK-MED ONCE IV ; Start 06/22/16 at 09: 57; Stop 06/22/16 at 09:58; Status DC Lidocaine HCl 100 mg STK-MED ONCE .ROUTE ; Start 06/22/16 at 09:57; Stop at 09:58; Status DC Rocuronium [place] (Zemuron) 50 mg STK-MED ONCE .ROUTE ; Start 06/22/16 at 09:57 ; Stop 06/22/16 at 09:58; Status DC Ondansetron HCl (Zofran) 4 mg STK-MED ONCE .ROUTE ; Start 06/22/16 at 09:58; Stop 06/22/16 at 09:59; Status DC Dexamethasone Sodium Phosphate (Decadron) 20 mg STK-MED ONCE .ROUTE ; Start at 09:58; Stop 06/22/16 at 09:59; Status DC Fentanyl Citrate 100 mcg 100 mcg STK-MED ONCE .ROUTE ; Start 06/22/16 at 09:59; Stop 06/22/16 at 10:00; Status DC Cefazolin Sodium/ Dextrose (Ancef 2gm Premix) 50 ml @ 100 mls/hr 1X PREOP IV Last administered on 06/22/16t 12:37; Start 06/22/16 at 10:15 Metoprolol Tartrate (Lopressor) 5 mg STK-MED ONCE .ROUTE ; Start 06/22/16 at 11: 05; Stop 06/22/16 at 11:06; Status DC Metoprolol Tartrate (Lopressor) 5 mg 1X ONCE IVP Last administered on t 11:12; Start 06/22/16 at 11:15; Stop 06/22/16 at 11:16; Status DC Ephedrine Sulfate 50 mg STK-MED ONCE IV ; Start 06/22/16 at 12:11; Stop at 12:12; Status DC Glycopyrrolate (Robinul) 1 mg STK-MED ONCE .ROUTE ; Start 06/22/16 at 12:40; Stop 06/22/16 at 12:41; Status DC Neostigmine Methylsulfate 5 mg STK-MED ONCE .ROUTE ; Start 06/22/16 at 12:40; Stop 06/22/16 at 12:41; Status DC Sevoflurane 60 ml 60 ml STK-MED ONCE IH ; Start 06/22/16 at 13:05; Stop at 13:06; Status DC Cefazolin Sodium/ Sodium Chloride (Ancef/Iv Sodium Chloride 0.9% 50ml) 50 ml @ 100 mls/hr Q8HRS IV Last administered on 06/25/16 05:39; Start 06/22/16 at 23: 00 Warfarin Sodium (Coumadin) 7.5 mg 1X WARF ONCE PO Last administered on 17:06; Start 06/23/16 at 16:00; Stop 06/23/16 at 16:01; Status DC Enoxaparin Sodium (Lovenox 60mg Syringe) 60 mg Q12HR SQ Last administered on 08:17; Start 06/24/16 at 21:00 Warfarin Sodium (Coumadin) 7.5 mg 1X WARF ONCE PO Last administered on 15:35; Start 06/24/16 at 16:00; Stop 06/24/16 at 16:01; Status DC Active Scripts Active Reported Coumadin (Warfarin Sodium) 5 Mg Tablet 1 Tab PO DAILY Metoprolol Succinate ( Xl ) (Metoprolol Succinate) 25 Mg Tab.er.24h 25 Mg PO DAILY Vitals/I & O Vital Sign - Last 24 Hours 06/24/16 06/24/16 06/24/16 06/24/16 10:00 11:00 12:12 12:12 Temp 97.9 98.0 98.6 97.9 98.0 98.6 Pulse 69 72 76 Resp 21 20 21 B/P 100/64 90/69 91/62 Pulse Ox 98 99 97 O2 Delivery Room Air Room Air Room Air Room Air 06/24/16 06/24/16 06/24/16 06/24/16 13:00 14:00 15:00 15:34 Temp 97.9 97.8 97.9 97.8 Pulse 74 73 72 Resp 18 14 12 B/P 105/63 94/57 112/70 Pulse Ox 95 97 97 O2 Delivery Room Air Room Air Room Air 06/24/16 06/24/16 06/24/16 06/24/16 16:15 19:10 20:00 22:43 Temp 97.8 97.9 97.8 97.9 Pulse 70 75 Resp 16 16 16 B/P 115/69 96/63 Pulse Ox 96 95 O2 Delivery Room Air Room Air Room Air Room Air 06/24/16 06/24/16 06/25/16 06/25/16 23:47 23:48 03:46 05:39 Temp 97.5 98.0 97.5 98.0 Pulse 72 80 Resp 20 16 16 16 B/P 109/70 94/67 Pulse Ox 95 95 O2 Delivery Room Air Room Air Room Air Room Air 06/25/16 06/25/16 06:40 07:00 Temp 97.9 97.9 Pulse 63 Resp 16 18 B/P 88/47 Pulse Ox 96 O2 Delivery Room Air Room Air Intake and Output 06/24/16 06/24/16 06/25/16 15:00 23:00 07:00 Intake Total 1010 ml 537 ml Output Total 425 ml 750 ml 1000 ml Balance 585 ml -750 ml -463 ml CONNIE ESTEVEZ MD Jun 25, 2016 09:34
--- NOTE | 2016-06-25 10:38 | PDOC ---
PROGRESS NOTES Assessment Problems Medical Problems: (1) Subdural hematoma Status: Acute (2) Supratherapeutic INR Status: Acute Bilateral SDH, now status post bilateral nela holes Headache, none now Metabolic encephalopathy, remains bright today. Marfan's syndrome, aortic and mitral valve disease/replacements. Left eye vision loss. Dysphagia, resolved Plan Continue fentanyl prn Keppra if seizures. [facility] Subjective nurse reports some confusion earlier, thought he had left hospital and come back Objective Vital Signs Date Time Temp Pulse Resp B/P Pulse Ox O2 Delivery O2 Flow Rate FiO2 06/25/16 07:00 97.9 63 18 88/47 96 Room Air 97.9 Intake and Output 06/25/16 07:00 Intake Total 1547 ml Output Total 2175 ml Balance -628 ml Intake Oral 1010 ml Other 537 ml Output Urine Total 2175 ml PHYSICAL EXAM Alert, follows commands, knows that he is in the hospital, does not know the date No hiccups Left cornea is scarred, right pupil reacts EOMI. CN: no focal findings. Muscle tone: normal. Muscle strength: 5-/5 DTR: 2+ Plantar reflex: flexor Gait: not examined in bed. Sensory exam: no abnormal findings. No cerebellar signs Review of Relevant I have reviewed the following items jordy (where applicable) has been applied. Labs Laboratory Tests Test 06/23/16 11:55 06/24/16 03:30 06/25/16 04:47 06/25/16 05:00 Prothrombin Time 14.3SEC (11.7-14.0) 13.0SEC (11.7-14.0) 15.5SEC (11.7-14.0) Prothromb Time International Ratio 1.2 (0.8-1.1) 1.0 (0.8-1.1) 1.3 (0.8-1.1) White Blood Count 6.9x10^3/uL (4.0-11.0) 6.0x10^3/uL (4.0-11.0) Red Blood Count 4.04x10^6/uL (4.30-5.70) 4.27x10^6/uL (4.30-5.70) Hemoglobin 12.1g/dL (13.0-17.5) 12.8g/dL (13.0-17.5) Hematocrit 35.4% (39.0-53.0) 38.0% (39.0-53.0) Mean Corpuscular Volume 88fL (79-100) 89fL (79-100) Mean Corpuscular Hemoglobin 30pg (25-35) 30pg (25-35) Mean Corpuscular Hemoglobin Concent 34g/dL (31-37) 34g/dL (31-37) Red Cell Distribution Width 13.2% (11.5-14.5) 13.2% (11.5-14.5) Platelet Count 233x10^3/uL (140-400) 231x10^3/uL (140-400) Neutrophils (%) (Auto) 60% (31-73) 58% (31-73) Lymphocytes (%) (Auto) 23% (24-48) 22% (24-48) Monocytes (%) (Auto) 12% (0-9) 11% (0-9) Eosinophils (%) (Auto) 4% (0-3) 7% (0-3) Basophils (%) (Auto) 1% (0-3) 2% (0-3) Neutrophils # (Auto) 4.2x10^3uL (1.8-7.7) 3.5x10^3uL (1.8-7.7) Lymphocytes # (Auto) 1.6x10^3/uL (1.0-4.8) 1.3x10^3/uL (1.0-4.8) Monocytes # (Auto) 0.8x10^3/uL (0.0-1.1) 0.7x10^3/uL (0.0-1.1) Eosinophils # (Auto) 0.3x10^3/uL (0.0-0.7) 0.4x10^3/uL (0.0-0.7) Basophils # (Auto) 0.1x10^3/uL (0.0-0.2) 0.1x10^3/uL (0.0-0.2) Sodium Level 139mmol/L (136-145) 140mmol/L (136-145) Potassium Level 3.8mmol/L (3.5-5.1) 4.1mmol/L (3.5-5.1) Chloride Level 105mmol/L (98-107) 105mmol/L (98-107) Carbon Dioxide Level 26mmol/L (21-32) 28mmol/L (21-32) Anion Gap 8 (6-14) 7 (6-14) Blood Urea Nitrogen 17mg/dL (8-26) 11mg/dL (8-26) Creatinine 0.8mg/dL (0.7-1.3) 0.8mg/dL (0.7-1.3) Estimated GFR (Cockcroft-Gault) 102.3 102.3 Glucose Level 87mg/dL (70-99) 82mg/dL (70-99) Calcium Level 8.3mg/dL (8.5-10.1) 8.4mg/dL (8.5-10.1) Laboratory Tests Test 06/25/16 04:47 06/25/16 05:00 White Blood Count 6.0x10^3/uL (4.0-11.0) Red Blood Count 4.27x10^6/uL (4.30-5.70) Hemoglobin 12.8g/dL (13.0-17.5) Hematocrit 38.0% (39.0-53.0) Mean Corpuscular Volume 89fL (79-100) Mean Corpuscular Hemoglobin 30pg (25-35) Mean Corpuscular Hemoglobin Concent 34g/dL (31-37) Red Cell Distribution Width 13.2% (11.5-14.5) Platelet Count 231x10^3/uL (140-400) Neutrophils (%) (Auto) 58% (31-73) Lymphocytes (%) (Auto) 22% (24-48) Monocytes (%) (Auto) 11% (0-9) Eosinophils (%) (Auto) 7% (0-3) Basophils (%) (Auto) 2% (0-3) Neutrophils # (Auto) 3.5x10^3uL (1.8-7.7) Lymphocytes # (Auto) 1.3x10^3/uL (1.0-4.8) Monocytes # (Auto) 0.7x10^3/uL (0.0-1.1) Eosinophils # (Auto) 0.4x10^3/uL (0.0-0.7) Basophils # (Auto) 0.1x10^3/uL (0.0-0.2) Sodium Level 140mmol/L (136-145) Potassium Level 4.1mmol/L (3.5-5.1) Chloride Level 105mmol/L (98-107) Carbon Dioxide Level 28mmol/L (21-32) Anion Gap 7 (6-14) Blood Urea Nitrogen 11mg/dL (8-26) Creatinine 0.8mg/dL (0.7-1.3) Estimated GFR (Cockcroft-Gault) 102.3 Glucose Level 82mg/dL (70-99) Calcium Level 8.4mg/dL (8.5-10.1) Prothrombin Time 15.5SEC (11.7-14.0) Prothromb Time International Ratio 1.3 (0.8-1.1) Microbiology 06/13/16 Urine Culture - Final, Complete 06/13/16 Urine Culture Result 1 (GLENN) - Final, Complete Medications Current Medications Sodium Chloride (Iv Sodium Chloride 0.9% 1000ml Bag) 1,000 ml @ 100 mls/hr 1X ONCE IV Last administered on 06/13/16 13:45; Start 06/13/16 at 13:45; Stop at 23:44; Status DC Phytonadione (Mephyton) 10 mg 1X ONCE PO Last administered on 06/13/16 15:03; Start 06/13/16 at 15:00; Stop 06/13/16 at 15:01; Status DC Ondansetron HCl 4 mg 4 mg PRN Q8HRS PRN IV NAUSEA/VOMITING; Start 06/13/16 at 16 :15; Stop 06/14/16 at 16:14; Status DC Sodium Chloride (Iv Sodium Chloride 0.9% 1000ml Bag) 1,000 ml @ 100 mls/hr Q10H IV Last administered on 06/14/16 05:49; Start 06/13/16 at 16:10; Stop at 13:20; Status DC Morphine Sulfate 2 mg 1X ONCE IV Last administered on 06/13/16 18:08; Start at 18:30; Stop 06/13/16 at 18:31; Status DC Oxycodone/ Acetaminophen (Percocet 5/325) 1 tab PRN Q4HRS PRN PO PAIN Last administered on 06/24/16 22:43; Start 06/13/16 at 18:00 Oxycodone/ Acetaminophen (Percocet 5/325) 2 tab PRN Q4HRS PRN PO PAIN Last administered on 06/25/16 05:39; Start 06/13/16 at 18:00 Metoprolol Succinate (Toprol Xl) 25 mg DAILY PO Last administered on 06/23/16 08:54; Start 06/14/16 at 09:00 Lorazepam 2 mg 2 mg PRN Q4HRS PRN IV ANXIETY / AGITATION Last administered on 01:06; Start 06/13/16 at 19:45 Levetiracetam 500 mg/Sodium Chloride 105 ml @ 400 mls/hr PRN Q12HRS PRN IV SEIZURES; Start 06/13/16 at 19:45 Potassium Chloride/Sodium Chloride (KCl 20 Meq-0.45% Nacl) 1,000 ml @ 100 mls/ hr Q10H IV Last administered on 06/17/16 03:24; Start 06/14/16 at 13:30; Stop 06/17/16 at 12:24; Status DC Warfarin Sodium (Coumadin Per Pharmacy) 1 each PRN DAILY PRN MC SEE COMMENTS Last administered on 06/24/16 11:25; Start 06/14/16 at 16:00 Warfarin Sodium 2.5 mg 2.5 mg 1X WARF ONCE PO ; Start 06/14/16 at 17:00; Stop at 17:01; Status Cancel Bacitracin/Sodium Chloride (Iv Sodium Chloride 0.9% 1000ml Bag) 1,000 ml @ 1, 000 mls/hr 1X PERIOP ONCE IRR Last administered on 06/15/16 12:41; Start at 10:00; Stop 06/15/16 at 10:59; Status DC Ondansetron HCl (Zofran) 4 mg PRN Q6HRS PRN IV Nausea; Start 06/15/16 at 10:00; Stop 06/16/16 at 09:59; Status DC Fentanyl Citrate (Fentanyl 2ml Vial) 25 mcg PRN Q5MIN PRN IV MILD PAIN; Start 06/15/16 at 10:00; Stop 06/16/16 at 09:59; Status DC Fentanyl Citrate (Fentanyl 2ml Vial) 50 mcg PRN Q5MIN PRN IV MODERATE PAIN; Start 06/15/16 at 10:00; Stop 06/16/16 at 09:59; Status DC Morphine Sulfate 1 mg 1 mg PRN Q10MIN PRN IV SEVERE PAIN; Start 06/15/16 at 10: 00; Stop 06/16/16 at 09:59; Status DC Lactated Ringer's (Iv Lactated Ringers) 1,000 ml @ 30 mls/hr Q24H IV ; Start at 09:47; Stop 06/15/16 at 21:46; Status DC Lidocaine HCl 2 ml 1X PRN PRN ID IV START; Start 06/15/16 at 10:00; Stop at 09:59; Status DC Hydromorphone HCl (Dilaudid) 0.5 mg PRN Q10MIN PRN IV SEV PAIN,Second choice; Start 06/15/16 at 10:00; Stop 06/16/16 at 09:59; Status DC Prochlorperazine Edisylate (Compazine) 5 mg PACU PRN PRN IV NAUSEA; Start at 10:00; Stop 06/16/16 at 09:59; Status DC Phytonadione (Vitamin K) 2 mg 1X ONCE SQ Last administered on 06/15/16t 11:21; Start 06/15/16 at 09:45; Stop 06/15/16 at 09:57; Status DC Dexamethasone Sodium Phosphate (Decadron) 20 mg STK-MED ONCE .ROUTE ; Start 06/15 at 10:26; Stop 06/15/16 at 10:27; Status DC Ondansetron HCl (Zofran) 4 mg STK-MED ONCE .ROUTE ; Start 06/15/16 at 10:26; Stop 06/15/16 at 10:27; Status DC Rocuronium Blunt 50 mg 50 mg STK-MED ONCE .ROUTE ; Start 06/15/16 at 10:26; Stop 06/15/16 at 10:27; Status DC Propofol (Diprivan) 20 ml @ As Directed STK-MED ONCE IV ; Start 06/15/16 at 10:26 ; Stop 06/15/16 at 10:27; Status DC Lidocaine HCl 100 mg STK-MED ONCE .ROUTE ; Start 06/15/16 at 10:26; Stop 06/15/16 at 10:27; Status DC Fentanyl Citrate (Fentanyl 2ml Vial) 100 mcg STK-MED ONCE .ROUTE ; Start at 10:26; Stop 06/15/16 at 10:27; Status DC Thrombin 20,000 unit STK-MED ONCE TP Last administered on 06/15/16 12:41; Start 06/15/16 at 10:47; Stop 06/15/16 at 10:48; Status DC Gelatin (Gelfoam Size 100) 1 each STK-MED ONCE .ROUTE Last administered on 06/15 12:41; Start 06/15/16 at 10:48; Stop 06/15/16 at 10:49; Status DC Bupivacaine HCl/ Epinephrine Bitart (Sensorcaine-Epi 0.25%-1:581572 Mpf) 30 ml STK-MED ONCE .ROUTE Last administered on 06/15/16 12:41; Start 06/15/16 at 10:48 ; Stop 06/15/16 at 10:49; Status DC Cellulose 1 each STK-MED ONCE .ROUTE ; Start 06/15/16 at 10:49; Stop 06/15/16 at 10:50; Status DC Potassium Chloride 20 meq 20 meq 1X ONCE PO Last administered on 06/15/16 11: 21; Start 06/15/16 at 11:15; Stop 06/15/16 at 11:16; Status DC Cefazolin Sodium/ Dextrose (Ancef 2gm Premix) 50 ml @ 100 mls/hr 1X PREOP PRN IV PER PROTOCOL Last administered on 06/15/16 12:56; Start 06/16/16 at 06:00; Stop 06/16/16 at 18:00; Status DC Ephedrine Sulfate 50 mg STK-MED ONCE IV ; Start 06/15/16 at 13:04; Stop 06/15/16 at 13:05; Status DC Glycopyrrolate (Robinul) 1 mg STK-MED ONCE .ROUTE ; Start 06/15/16 at 13:39; Stop 06/15/16 at 13:40; Status DC Neostigmine Methylsulfate 5 mg STK-MED ONCE .ROUTE ; Start 06/15/16 at 13:39; Stop 06/15/16 at 13:40; Status DC Fentanyl Citrate (Fentanyl 2ml Vial) 100 mcg STK-MED ONCE .ROUTE ; Start at 13:55; Stop 06/15/16 at 13:56; Status DC Sevoflurane (Ultane) 30 ml STK-MED ONCE IH ; Start 06/15/16 at 13:55; Stop at 13:56; Status DC Sevoflurane (Ultane) 60 ml STK-MED ONCE IH ; Start 06/15/16 at 13:55; Stop at 13:56; Status DC Warfarin Sodium (Coumadin - No Dose Today) 1 each 1X WARF ONCE MC Last administered on 06/15/16 16:00; Start 06/15/16 at 16:00; Stop 06/15/16 at 16:01; Status DC Cefazolin Sodium/ Dextrose (Ancef 2gm Premix) 2 gm STK-MED ONCE IV ; Start at 13:00; Stop 06/16/16 at 08:05; Status DC Famotidine (Pepcid) 20 mg BID IVP ; Start 06/16/16 at 21:00; Stop 06/16/16 at 21 :00; Status DC Famotidine (Pepcid) 20 mg BID PO Last administered on 06/25/16 08:14; Start at 13:00 Warfarin Sodium (Coumadin) 5 mg 1X WARF ONCE PO Last administered on 18:15; Start 06/17/16 at 16:00; Stop 06/17/16 at 16:01; Status DC Warfarin Sodium (Coumadin) 7.5 mg 1X WARF ONCE PO Last administered on 16:25; Start 06/18/16 at 16:00; Stop 06/18/16 at 16:01; Status DC Ondansetron HCl (Zofran) 4 mg PRN Q6HRS PRN IV NAUSEA/VOMITING Last administered on 06/24/16 13:23; Start 06/19/16 at 03:00 Morphine Sulfate 2 mg PRN Q2HR PRN IV PAIN Last administered on 06/20/16 08:06 ; Start 06/19/16 at 03:00; Stop 06/20/16 at 10:14; Status DC Warfarin Sodium 7.5 mg 7.5 mg 1X WARF ONCE PO ; Start 06/19/16 at 16:00; Stop 06/19/16 at 16:01; Status DC Amino Acids/ Glycerin/ Electrolytes (Procalamine) 1,000 ml @ 75 mls/hr [id number] IV Last administered on 06/23/16 01:06; Start 06/19/16 at 16:15; Stop at 10:24; Status DC Fentanyl Citrate (Fentanyl 2ml Vial) 50 mcg Q6HRS PRN IM BREAKTHROUGH PAIN; Start 06/20/16 at 10:15; Stop 06/20/16 at 11:08; Status DC Fentanyl Citrate (Fentanyl 2ml Vial) 50 mcg PRN Q6HRS PRN IV BREAKTHROUGH PAIN Last administered on 06/22/16 22:11; Start 06/20/16 at 11:15 Warfarin Sodium (Coumadin) 7.5 mg 1X WARF ONCE PO ; Start 06/20/16 at 16:00; Stop 06/20/16 at 16:01; Status DC Enoxaparin Sodium (Lovenox Per Pharmacy Treatment Dosing) 1 each PRN DAILY PRN MC SEE COMMENTS; Start 06/21/16 at 12:30; Stop 06/22/16 at 12:29; Status DC Enoxaparin Sodium 60 mg 60 mg Q12HR SQ Last administered on 06/22/16 21:13; Start 06/21/16 at 13:00; Stop 06/23/16 at 10:24; Status DC Bacitracin/Sodium Chloride (Iv Sodium Chloride 0.9% 1000ml Bag) 1,000 ml @ 1, 000 mls/hr 1X PERIOP ONCE IRR ; Start 06/22/16 at 09:00; Stop 06/22/16 at 09:59 ; Status DC Ondansetron HCl (Zofran) 4 mg PRN Q6HRS PRN IV Nausea; Start 06/22/16 at 09:00 ; Stop 06/22/16 at 18:00; Status DC Fentanyl Citrate (Fentanyl 2ml Vial) 25 mcg PRN Q5MIN PRN IV MILD PAIN; Start 06/22/16 at 09:00; Stop 06/22/16 at 18:00; Status DC Fentanyl Citrate (Fentanyl 2ml Vial) 50 mcg PRN Q5MIN PRN IV MODERATE PAIN Last administered on 06/22/16 17:20; Start 06/22/16 at 09:00; Stop 06/22/16 at 18:00; Status DC Morphine Sulfate 1 mg 1 mg PRN Q10MIN PRN IV SEVERE PAIN; Start 06/22/16 at 09: 00; Stop 06/22/16 at 18:00; Status DC Lactated Ringer's (Iv Lactated Ringers) 1,000 ml @ 30 mls/hr Q24H IV Last administered on 06/22/16 10:55; Start 06/22/16 at 08:52; Stop 06/22/16 at 20:51 ; Status DC Lidocaine HCl 2 ml 1X PRN PRN ID IV START; Start 06/22/16 at 09:00; Stop at 18:00; Status DC Hydromorphone HCl (Dilaudid) 0.5 mg PRN Q10MIN PRN IV SEV PAIN,Second choice; Start 06/22/16 at 09:00; Stop 06/22/16 at 18:00; Status DC Prochlorperazine Edisylate (Compazine) 5 mg PACU PRN PRN IV NAUSEA; Start 06/22 at 09:00; Stop 06/22/16 at 18:00; Status DC Bupivacaine HCl/ Epinephrine Bitart (Sensorcaine-Epi 0.25%-1:915027 Mpf) 30 ml STK-MED ONCE .ROUTE Last administered on 06/22/16 12:21; Start 06/22/16 at 09: 22; Stop 06/22/16 at 09:23; Status DC Cellulose 1 each STK-MED ONCE .ROUTE ; Start 06/22/16 at 09:22; Stop 06/22/16 at 09:23; Status DC Thrombin 20,000 unit STK-MED ONCE TP Last administered on 06/22/16 12:21; Start 06/22/16 at 09:22; Stop 06/22/16 at 09:23; Status DC Gelatin 1 each 1 each STK-MED ONCE .ROUTE Last administered on 06/22/16 12:21 ; Start 06/22/16 at 09:23; Stop 06/22/16 at 09:24; Status DC Propofol (Diprivan) 20 ml @ As Directed STK-MED ONCE IV ; Start 06/22/16 at 09: 57; Stop 06/22/16 at 09:58; Status DC Lidocaine HCl 100 mg STK-MED ONCE .ROUTE ; Start 06/22/16 at 09:57; Stop at 09:58; Status DC Rocuronium Blunt (Zemuron) 50 mg STK-MED ONCE .ROUTE ; Start 06/22/16 at 09:57 ; Stop 06/22/16 at 09:58; Status DC Ondansetron HCl (Zofran) 4 mg STK-MED ONCE .ROUTE ; Start 06/22/16 at 09:58; Stop 06/22/16 at 09:59; Status DC Dexamethasone Sodium Phosphate (Decadron) 20 mg STK-MED ONCE .ROUTE ; Start at 09:58; Stop 06/22/16 at 09:59; Status DC Fentanyl Citrate 100 mcg 100 mcg STK-MED ONCE .ROUTE ; Start 06/22/16 at 09:59; Stop 06/22/16 at 10:00; Status DC Cefazolin Sodium/ Dextrose (Ancef 2gm Premix) 50 ml @ 100 mls/hr 1X PREOP IV Last administered on 06/22/16t 12:37; Start 06/22/16 at 10:15 Metoprolol Tartrate (Lopressor) 5 mg STK-MED ONCE .ROUTE ; Start 06/22/16 at 11: 05; Stop 06/22/16 at 11:06; Status DC Metoprolol Tartrate (Lopressor) 5 mg 1X ONCE IVP Last administered on t 11:12; Start 06/22/16 at 11:15; Stop 06/22/16 at 11:16; Status DC Ephedrine Sulfate 50 mg STK-MED ONCE IV ; Start 06/22/16 at 12:11; Stop at 12:12; Status DC Glycopyrrolate (Robinul) 1 mg STK-MED ONCE .ROUTE ; Start 06/22/16 at 12:40; Stop 06/22/16 at 12:41; Status DC Neostigmine Methylsulfate 5 mg STK-MED ONCE .ROUTE ; Start 06/22/16 at 12:40; Stop 06/22/16 at 12:41; Status DC Sevoflurane 60 ml 60 ml STK-MED ONCE IH ; Start 06/22/16 at 13:05; Stop at 13:06; Status DC Cefazolin Sodium/ Sodium Chloride (Ancef/Iv Sodium Chloride 0.9% 50ml) 50 ml @ 100 mls/hr Q8HRS IV Last administered on 06/25/16 05:39; Start 06/22/16 at 23: 00 Warfarin Sodium (Coumadin) 7.5 mg 1X WARF ONCE PO Last administered on 17:06; Start 06/23/16 at 16:00; Stop 06/23/16 at 16:01; Status DC Enoxaparin Sodium (Lovenox 60mg Syringe) 60 mg Q12HR SQ Last administered on 08:17; Start 06/24/16 at 21:00 Warfarin Sodium (Coumadin) 7.5 mg 1X WARF ONCE PO Last administered on 15:35; Start 06/24/16 at 16:00; Stop 06/24/16 at 16:01; Status DC Active Scripts Active Reported Coumadin (Warfarin Sodium) 5 Mg Tablet 1 Tab PO DAILY Metoprolol Succinate ( Xl ) (Metoprolol Succinate) 25 Mg Tab.er.24h 25 Mg PO DAILY Vitals/I & O Vital Sign - Last 24 Hours 06/24/16 06/24/16 06/24/16 06/24/16 11:00 12:12 12:12 13:00 Temp 98.0 98.6 97.9 98.0 98.6 97.9 Pulse 72 76 74 Resp 20 18 B/P 90/69 91/62 105/63 Pulse Ox 99 97 95 O2 Delivery Room Air Room Air Room Air 06/24/16 06/24/16 06/24/16 06/24/16 14:00 15:00 15:34 16:15 Temp 97.8 97.8 97.8 97.8 Pulse 73 72 70 Resp 14 12 16 B/P 94/57 112/70 115/69 Pulse Ox 97 97 96 O2 Delivery Room Air Room Air Room Air Room Air 06/24/16 06/24/16 06/24/16 06/24/16 19:10 20:00 22:43 23:47 Temp 97.9 97.5 97.9 97.5 Pulse 75 72 Resp 16 16 20 B/P 96/63 109/70 Pulse Ox 95 95 O2 Delivery Room Air Room Air Room Air Room Air 06/24/16 06/25/16 06/25/16 06/25/16 23:48 03:46 05:39 06:40 Temp 98.0 98.0 Pulse 80 Resp 16 16 B/P 94/67 Pulse Ox 95 O2 Delivery Room Air Room Air Room Air Room Air 06/25/16 07:00 Temp 97.9 97.9 Pulse 63 Resp 18 B/P 88/47 Pulse Ox 96 O2 Delivery Room Air Intake and Output 06/24/16 06/24/16 06/25/16 15:00 23:00 07:00 Intake Total 1010 ml 537 ml Output Total 425 ml 750 ml 1000 ml Balance 585 ml -750 ml -463 ml EDWARD AMBROSE MD Jun 25, 2016 10:38
[2016-06-25 11:00] VITALS: BP 95/53
[2016-06-25] MEDS: LORAZEPAM 2 MG/ML VIAL IV PRN (14:33)
[2016-06-25 15:00] VITALS: BP 92/60
[2016-06-25] MEDS ORDERED: WARFARIN 5 MG TABLET. PO ONE (16:00)
[2016-06-25 19:00] VITALS: BP 92/65
[2016-06-25 23:46] VITALS: BP 92/52
[2016-06-26 03:37] VITALS: BP 99/56
[2016-06-26] MEDS: CEFAZOLIN SODIUM 1 GM in IV NORMAL SALINE 50ML 50 ML IV SCH ×3 (06:12→21:44)
[2016-06-26 07:00] VITALS: BP 97/61
--- NOTE | 2016-06-26 07:54 | PDOC ---
PROGRESS NOTES Assessment Problems Medical Problems: (1) Subdural hematoma Status: Acute (2) Supratherapeutic INR Status: Acute Bilateral SDH, now status post bilateral nela holes Headache, none now Metabolic encephalopathy, remains bright today. Marfan's syndrome, aortic and mitral valve disease/replacements. Left eye vision loss. Dysphagia, resolved Anxiety Plan Xanax prn Continue fentanyl prn Keppra if seizures. SNU Subjective Yesterday, the patient had some anxiety and the nurse gave IV Ativan which snowed him for several hours. He does not take any anxiety medicines at home. Objective Vital Signs Date Time Temp Pulse Resp B/P Pulse Ox O2 Delivery O2 Flow Rate FiO2 06/26/16 03:37 98.1 92 18 99/56 94 Room Air 98.1 Intake and Output 06/26/16 07:00 Intake Total 290 ml Output Total 890 ml Balance -600 ml Intake Oral 240 ml IV Total 50 ml Output Urine Total 890 ml # Voids 1 PHYSICAL EXAM Alert, follows commands, knows that he is in the hospital, does not know the date No hiccups Left cornea is scarred, right pupil reacts EOMI. CN: no focal findings. Muscle tone: normal. Muscle strength: 5-/5 DTR: 2+ Plantar reflex: flexor Gait: not examined in bed. Sensory exam: no abnormal findings. No cerebellar signs Review of Relevant I have reviewed the following items jordy (where applicable) has been applied. Labs Laboratory Tests Test 06/25/16 04:47 06/25/16 05:00 White Blood Count 6.0x10^3/uL (4.0-11.0) Red Blood Count 4.27x10^6/uL (4.30-5.70) Hemoglobin 12.8g/dL (13.0-17.5) Hematocrit 38.0% (39.0-53.0) Mean Corpuscular Volume 89fL (79-100) Mean Corpuscular Hemoglobin 30pg (25-35) Mean Corpuscular Hemoglobin Concent 34g/dL (31-37) Red Cell Distribution Width 13.2% (11.5-14.5) Platelet Count 231x10^3/uL (140-400) Neutrophils (%) (Auto) 58% (31-73) Lymphocytes (%) (Auto) 22% (24-48) Monocytes (%) (Auto) 11% (0-9) Eosinophils (%) (Auto) 7% (0-3) Basophils (%) (Auto) 2% (0-3) Neutrophils # (Auto) 3.5x10^3uL (1.8-7.7) Lymphocytes # (Auto) 1.3x10^3/uL (1.0-4.8) Monocytes # (Auto) 0.7x10^3/uL (0.0-1.1) Eosinophils # (Auto) 0.4x10^3/uL (0.0-0.7) Basophils # (Auto) 0.1x10^3/uL (0.0-0.2) Sodium Level 140mmol/L (136-145) Potassium Level 4.1mmol/L (3.5-5.1) Chloride Level 105mmol/L (98-107) Carbon Dioxide Level 28mmol/L (21-32) Anion Gap 7 (6-14) Blood Urea Nitrogen 11mg/dL (8-26) Creatinine 0.8mg/dL (0.7-1.3) Estimated GFR (Cockcroft-Gault) 102.3 Glucose Level 82mg/dL (70-99) Calcium Level 8.4mg/dL (8.5-10.1) Prothrombin Time 15.5SEC (11.7-14.0) Prothromb Time International Ratio 1.3 (0.8-1.1) Microbiology 06/13/16 Urine Culture - Final, Complete 06/13/16 Urine Culture Result 1 (GLENN) - Final, Complete Medications Current Medications Sodium Chloride (Iv Sodium Chloride 0.9% 1000ml Bag) 1,000 ml @ 100 mls/hr 1X ONCE IV Last administered on 06/13/16 13:45; Start 06/13/16 at 13:45; Stop at 23:44; Status DC Phytonadione (Mephyton) 10 mg 1X ONCE PO Last administered on 06/13/16 15:03; Start 06/13/16 at 15:00; Stop 06/13/16 at 15:01; Status DC Ondansetron HCl 4 mg 4 mg PRN Q8HRS PRN IV NAUSEA/VOMITING; Start 06/13/16 at 16 :15; Stop 06/14/16 at 16:14; Status DC Sodium Chloride (Iv Sodium Chloride 0.9% 1000ml Bag) 1,000 ml @ 100 mls/hr Q10H IV Last administered on 06/14/16 05:49; Start 06/13/16 at 16:10; Stop at 13:20; Status DC Morphine Sulfate 2 mg 1X ONCE IV Last administered on 06/13/16 18:08; Start at 18:30; Stop 06/13/16 at 18:31; Status DC Oxycodone/ Acetaminophen (Percocet 5/325) 1 tab PRN Q4HRS PRN PO PAIN Last administered on 06/24/16 22:43; Start 06/13/16 at 18:00 Oxycodone/ Acetaminophen (Percocet 5/325) 2 tab PRN Q4HRS PRN PO PAIN Last administered on 06/25/16 19:57; Start 06/13/16 at 18:00 Metoprolol Succinate (Toprol Xl) 25 mg DAILY PO Last administered on 06/23/16 08:54; Start 06/14/16 at 09:00 Lorazepam 2 mg 2 mg PRN Q4HRS PRN IV ANXIETY / AGITATION Last administered on 14:33; Start 06/13/16 at 19:45 Levetiracetam 500 mg/Sodium Chloride 105 ml @ 400 mls/hr PRN Q12HRS PRN IV SEIZURES; Start 06/13/16 at 19:45 Potassium Chloride/Sodium Chloride (KCl 20 Meq-0.45% Nacl) 1,000 ml @ 100 mls/ hr Q10H IV Last administered on 06/17/16 03:24; Start 06/14/16 at 13:30; Stop 06/17/16 at 12:24; Status DC Warfarin Sodium (Coumadin Per Pharmacy) 1 each PRN DAILY PRN MC SEE COMMENTS Last administered on 06/25/16 10:57; Start 06/14/16 at 16:00 Warfarin Sodium 2.5 mg 2.5 mg 1X WARF ONCE PO ; Start 06/14/16 at 17:00; Stop at 17:01; Status Cancel Bacitracin/Sodium Chloride (Iv Sodium Chloride 0.9% 1000ml Bag) 1,000 ml @ 1, 000 mls/hr 1X PERIOP ONCE IRR Last administered on 06/15/16t 12:41; Start at 10:00; Stop 06/15/16 at 10:59; Status DC Ondansetron HCl (Zofran) 4 mg PRN Q6HRS PRN IV Nausea; Start 06/15/16 at 10:00; Stop 06/16/16 at 09:59; Status DC Fentanyl Citrate (Fentanyl 2ml Vial) 25 mcg PRN Q5MIN PRN IV MILD PAIN; Start 06/15/16 at 10:00; Stop 06/16/16 at 09:59; Status DC Fentanyl Citrate (Fentanyl 2ml Vial) 50 mcg PRN Q5MIN PRN IV MODERATE PAIN; Start 06/15/16 at 10:00; Stop 06/16/16 at 09:59; Status DC Morphine Sulfate 1 mg 1 mg PRN Q10MIN PRN IV SEVERE PAIN; Start 06/15/16 at 10: 00; Stop 06/16/16 at 09:59; Status DC Lactated Ringer's (Iv Lactated Ringers) 1,000 ml @ 30 mls/hr Q24H IV ; Start at 09:47; Stop 06/15/16 at 21:46; Status DC Lidocaine HCl 2 ml 1X PRN PRN ID IV START; Start 06/15/16 at 10:00; Stop at 09:59; Status DC Hydromorphone HCl (Dilaudid) 0.5 mg PRN Q10MIN PRN IV SEV PAIN,Second choice; Start 06/15/16 at 10:00; Stop 06/16/16 at 09:59; Status DC Prochlorperazine Edisylate (Compazine) 5 mg PACU PRN PRN IV NAUSEA; Start at 10:00; Stop 06/16/16 at 09:59; Status DC Phytonadione (Vitamin K) 2 mg 1X ONCE SQ Last administered on 06/15/16t 11:21; Start 06/15/16 at 09:45; Stop 06/15/16 at 09:57; Status DC Dexamethasone Sodium Phosphate (Decadron) 20 mg STK-MED ONCE .ROUTE ; Start 06/15 at 10:26; Stop 06/15/16 at 10:27; Status DC Ondansetron HCl (Zofran) 4 mg STK-MED ONCE .ROUTE ; Start 06/15/16 at 10:26; Stop 06/15/16 at 10:27; Status DC Rocuronium [place] 50 mg 50 mg STK-MED ONCE .ROUTE ; Start 06/15/16 at 10:26; Stop 06/15/16 at 10:27; Status DC Propofol (Diprivan) 20 ml @ As Directed STK-MED ONCE IV ; Start 06/15/16 at 10:26 ; Stop 06/15/16 at 10:27; Status DC Lidocaine HCl 100 mg STK-MED ONCE .ROUTE ; Start 06/15/16 at 10:26; Stop 06/15/16 at 10:27; Status DC Fentanyl Citrate (Fentanyl 2ml Vial) 100 mcg STK-MED ONCE .ROUTE ; Start at 10:26; Stop 06/15/16 at 10:27; Status DC Thrombin 20,000 unit STK-MED ONCE TP Last administered on 06/15/16 12:41; Start 06/15/16 at 10:47; Stop 06/15/16 at 10:48; Status DC Gelatin (Gelfoam Size 100) 1 each STK-MED ONCE .ROUTE Last administered on 06/15 12:41; Start 06/15/16 at 10:48; Stop 06/15/16 at 10:49; Status DC Bupivacaine HCl/ Epinephrine Bitart (Sensorcaine-Epi 0.25%-1:236711 Mpf) 30 ml STK-MED ONCE .ROUTE Last administered on 06/15/16 12:41; Start 06/15/16 at 10:48 ; Stop 06/15/16 at 10:49; Status DC Cellulose 1 each STK-MED ONCE .ROUTE ; Start 06/15/16 at 10:49; Stop 06/15/16 at 10:50; Status DC Potassium Chloride 20 meq 20 meq 1X ONCE PO Last administered on 06/15/16 11: 21; Start 06/15/16 at 11:15; Stop 06/15/16 at 11:16; Status DC Cefazolin Sodium/ Dextrose (Ancef 2gm Premix) 50 ml @ 100 mls/hr 1X PREOP PRN IV PER PROTOCOL Last administered on 06/15/16 12:56; Start 06/16/16 at 06:00; Stop 06/16/16 at 18:00; Status DC Ephedrine Sulfate 50 mg STK-MED ONCE IV ; Start 06/15/16 at 13:04; Stop 06/15/16 at 13:05; Status DC Glycopyrrolate (Robinul) 1 mg STK-MED ONCE .ROUTE ; Start 06/15/16 at 13:39; Stop 06/15/16 at 13:40; Status DC Neostigmine Methylsulfate 5 mg STK-MED ONCE .ROUTE ; Start 06/15/16 at 13:39; Stop 06/15/16 at 13:40; Status DC Fentanyl Citrate (Fentanyl 2ml Vial) 100 mcg STK-MED ONCE .ROUTE ; Start at 13:55; Stop 06/15/16 at 13:56; Status DC Sevoflurane (Ultane) 30 ml STK-MED ONCE IH ; Start 06/15/16 at 13:55; Stop at 13:56; Status DC Sevoflurane (Ultane) 60 ml STK-MED ONCE IH ; Start 06/15/16 at 13:55; Stop at 13:56; Status DC Warfarin Sodium (Coumadin - No Dose Today) 1 each 1X WARF ONCE MC Last administered on 06/15/16 16:00; Start 06/15/16 at 16:00; Stop 06/15/16 at 16:01; Status DC Cefazolin Sodium/ Dextrose (Ancef 2gm Premix) 2 gm STK-MED ONCE IV ; Start at 13:00; Stop 06/16/16 at 08:05; Status DC Famotidine (Pepcid) 20 mg BID IVP ; Start 06/16/16 at 21:00; Stop 06/16/16 at 21 :00; Status DC Famotidine (Pepcid) 20 mg BID PO Last administered on 06/25/16 19:57; Start at 13:00 Warfarin Sodium (Coumadin) 5 mg 1X WARF ONCE PO Last administered on 18:15; Start 06/17/16 at 16:00; Stop 06/17/16 at 16:01; Status DC Warfarin Sodium (Coumadin) 7.5 mg 1X WARF ONCE PO Last administered on 16:25; Start 06/18/16 at 16:00; Stop 06/18/16 at 16:01; Status DC Ondansetron HCl (Zofran) 4 mg PRN Q6HRS PRN IV NAUSEA/VOMITING Last administered on 06/24/16 13:23; Start 06/19/16 at 03:00 Morphine Sulfate 2 mg PRN Q2HR PRN IV PAIN Last administered on 06/20/16 08:06 ; Start 06/19/16 at 03:00; Stop 06/20/16 at 10:14; Status DC Warfarin Sodium 7.5 mg 7.5 mg 1X WARF ONCE PO ; Start 06/19/16 at 16:00; Stop 06/19/16 at 16:01; Status DC Amino Acids/ Glycerin/ Electrolytes (Procalamine) 1,000 ml @ 75 mls/hr [id number] IV Last administered on 06/23/16 01:06; Start 06/19/16 at 16:15; Stop at 10:24; Status DC Fentanyl Citrate (Fentanyl 2ml Vial) 50 mcg Q6HRS PRN IM BREAKTHROUGH PAIN; Start 06/20/16 at 10:15; Stop 06/20/16 at 11:08; Status DC Fentanyl Citrate (Fentanyl 2ml Vial) 50 mcg PRN Q6HRS PRN IV BREAKTHROUGH PAIN Last administered on 06/22/16 22:11; Start 06/20/16 at 11:15 Warfarin Sodium (Coumadin) 7.5 mg 1X WARF ONCE PO ; Start 06/20/16 at 16:00; Stop 06/20/16 at 16:01; Status DC Enoxaparin Sodium (Lovenox Per Pharmacy Treatment Dosing) 1 each PRN DAILY PRN MC SEE COMMENTS; Start 06/21/16 at 12:30; Stop 06/22/16 at 12:29; Status DC Enoxaparin Sodium 60 mg 60 mg Q12HR SQ Last administered on 06/22/16 21:13; Start 06/21/16 at 13:00; Stop 06/23/16 at 10:24; Status DC Bacitracin/Sodium Chloride (Iv Sodium Chloride 0.9% 1000ml Bag) 1,000 ml @ 1, 000 mls/hr 1X PERIOP ONCE IRR ; Start 06/22/16 at 09:00; Stop 06/22/16 at 09:59 ; Status DC Ondansetron HCl (Zofran) 4 mg PRN Q6HRS PRN IV Nausea; Start 06/22/16 at 09:00 ; Stop 06/22/16 at 18:00; Status DC Fentanyl Citrate (Fentanyl 2ml Vial) 25 mcg PRN Q5MIN PRN IV MILD PAIN; Start 06/22/16 at 09:00; Stop 06/22/16 at 18:00; Status DC Fentanyl Citrate (Fentanyl 2ml Vial) 50 mcg PRN Q5MIN PRN IV MODERATE PAIN Last administered on 06/22/16 17:20; Start 06/22/16 at 09:00; Stop 06/22/16 at 18:00; Status DC Morphine Sulfate 1 mg 1 mg PRN Q10MIN PRN IV SEVERE PAIN; Start 06/22/16 at 09: 00; Stop 06/22/16 at 18:00; Status DC Lactated Ringer's (Iv Lactated Ringers) 1,000 ml @ 30 mls/hr Q24H IV Last administered on 06/22/16 10:55; Start 06/22/16 at 08:52; Stop 06/22/16 at 20:51 ; Status DC Lidocaine HCl 2 ml 1X PRN PRN ID IV START; Start 06/22/16 at 09:00; Stop at 18:00; Status DC Hydromorphone HCl (Dilaudid) 0.5 mg PRN Q10MIN PRN IV SEV PAIN,Second choice; Start 06/22/16 at 09:00; Stop 06/22/16 at 18:00; Status DC Prochlorperazine Edisylate (Compazine) 5 mg PACU PRN PRN IV NAUSEA; Start 06/22 at 09:00; Stop 06/22/16 at 18:00; Status DC Bupivacaine HCl/ Epinephrine Bitart (Sensorcaine-Epi 0.25%-1:563660 Mpf) 30 ml STK-MED ONCE .ROUTE Last administered on 06/22/16 12:21; Start 06/22/16 at 09: 22; Stop 06/22/16 at 09:23; Status DC Cellulose 1 each STK-MED ONCE .ROUTE ; Start 06/22/16 at 09:22; Stop 06/22/16 at 09:23; Status DC Thrombin 20,000 unit STK-MED ONCE TP Last administered on 06/22/16 12:21; Start 06/22/16 at 09:22; Stop 06/22/16 at 09:23; Status DC Gelatin 1 each 1 each STK-MED ONCE .ROUTE Last administered on 06/22/16 12:21 ; Start 06/22/16 at 09:23; Stop 06/22/16 at 09:24; Status DC Propofol (Diprivan) 20 ml @ As Directed STK-MED ONCE IV ; Start 06/22/16 at 09: 57; Stop 06/22/16 at 09:58; Status DC Lidocaine HCl 100 mg STK-MED ONCE .ROUTE ; Start 06/22/16 at 09:57; Stop at 09:58; Status DC Rocuronium [place] (Zemuron) 50 mg STK-MED ONCE .ROUTE ; Start 06/22/16 at 09:57 ; Stop 06/22/16 at 09:58; Status DC Ondansetron HCl (Zofran) 4 mg STK-MED ONCE .ROUTE ; Start 06/22/16 at 09:58; Stop 06/22/16 at 09:59; Status DC Dexamethasone Sodium Phosphate (Decadron) 20 mg STK-MED ONCE .ROUTE ; Start at 09:58; Stop 06/22/16 at 09:59; Status DC Fentanyl Citrate 100 mcg 100 mcg STK-MED ONCE .ROUTE ; Start 06/22/16 at 09:59; Stop 06/22/16 at 10:00; Status DC Cefazolin Sodium/ Dextrose (Ancef 2gm Premix) 50 ml @ 100 mls/hr 1X PREOP IV Last administered on 06/22/16 12:37; Start 06/22/16 at 10:15 Metoprolol Tartrate (Lopressor) 5 mg STK-MED ONCE .ROUTE ; Start 06/22/16 at 11: 05; Stop 06/22/16 at 11:06; Status DC Metoprolol Tartrate (Lopressor) 5 mg 1X ONCE IVP Last administered on 11:12; Start 06/22/16 at 11:15; Stop 06/22/16 at 11:16; Status DC Ephedrine Sulfate 50 mg STK-MED ONCE IV ; Start 06/22/16 at 12:11; Stop at 12:12; Status DC Glycopyrrolate (Robinul) 1 mg STK-MED ONCE .ROUTE ; Start 06/22/16 at 12:40; Stop 06/22/16 at 12:41; Status DC Neostigmine Methylsulfate 5 mg STK-MED ONCE .ROUTE ; Start 06/22/16 at 12:40; Stop 06/22/16 at 12:41; Status DC Sevoflurane 60 ml 60 ml STK-MED ONCE IH ; Start 06/22/16 at 13:05; Stop at 13:06; Status DC Cefazolin Sodium/ Sodium Chloride (Ancef/Iv Sodium Chloride 0.9% 50ml) 50 ml @ 100 mls/hr Q8HRS IV Last administered on 06/26/16 06:12; Start 06/22/16 at 23: 00 Warfarin Sodium (Coumadin) 7.5 mg 1X WARF ONCE PO Last administered on 17:06; Start 06/23/16 at 16:00; Stop 06/23/16 at 16:01; Status DC Enoxaparin Sodium (Lovenox 60mg Syringe) 60 mg Q12HR SQ Last administered on 19:59; Start 06/24/16 at 21:00 Warfarin Sodium (Coumadin) 7.5 mg 1X WARF ONCE PO Last administered on 15:35; Start 06/24/16 at 16:00; Stop 06/24/16 at 16:01; Status DC Warfarin Sodium (Coumadin) 5 mg 1X WARF ONCE PO Last administered on 16:49; Start 06/25/16 at 16:00; Stop 06/25/16 at 16:01; Status DC Active Scripts Active Reported Coumadin (Warfarin Sodium) 5 Mg Tablet 1 Tab PO DAILY Metoprolol Succinate ( Xl ) (Metoprolol Succinate) 25 Mg Tab.er.24h 25 Mg PO DAILY Vitals/I & O Vital Sign - Last 24 Hours 06/25/16 06/25/16 06/25/16 06/25/16 11:00 15:00 19:00 19:57 Temp 98.2 97.3 97.9 98.2 97.3 97.9 Pulse 62 78 93 Resp B/P 95/53 92/60 92/65 Pulse Ox 95 94 95 O2 Delivery Room Air Room Air Room Air Room Air 06/25/16 06/25/16 06/25/16 06/26/16 20:00 21:00 23:46 03:37 Temp 98.1 98.1 98.1 98.1 Pulse 84 92 Resp B/P 92/52 99/56 Pulse Ox 93 94 O2 Delivery Room Air Room Air Room Air Room Air Intake and Output 06/25/16 06/25/16 06/26/16 15:00 23:00 07:00 Intake Total 290 ml Output Total 740 ml 150 ml Balance -450 ml -150 ml EDWARD AMBROSE MD Jun 26, 2016 07:53
[2016-06-26 08:08] LABS: BASO # 0.1 x10^3/uL (0.0-0.2); BASO % 2 % (0-3); EOS % 7 % (0-3); HEMATOCRIT 37.2 % (39.0-53.0); HEMOGLOBIN 12.5 g/dL (13.0-17.5); LYMPH % 22 % (24-48); MEAN CORPUSCULAR HEMOGLOBIN 30 pg (25-35); MEAN CORPUSCULAR HGB CONC 34 g/dL (31-37); MEAN CORPUSCULAR VOLUME 89 fL (79-100); MONO % 12 % (0-9); NEUT % 57 % (31-73); PLATELET COUNT 230 x10^3/uL (140-400); RED BLOOD COUNT 4.17 x10^6/uL (4.30-5.70); RED CELL DISTRIBUTION WIDTH 13.4 % (11.5-14.5); WHITE BLOOD COUNT 4.7 x10^3/uL (4.0-11.0)
[2016-06-26 08:40] LABS: CALCIUM 8.5 mg/dL (8.5-10.1); CREATININE 0.8 mg/dL (0.7-1.3); GFR 102.3; POTASSIUM 3.7 mmol/L (3.5-5.1)
[2016-06-26] MEDS: METOPROLOL SUCC 24HR ER 25 MG TAB.ER.24H. PO SCH (08:58)
[2016-06-26] MEDS: ENOXAPARIN ** NOTE DOSE ** SYRINGE SQ SCH ×2 (08:59→20:06)
[2016-06-26] MEDS: FAMOTIDINE 20 MG TABLET. PO SCH ×2 (08:59→20:06)
--- NOTE | 2016-06-26 09:24 | PDOC ---
PROGRESS NOTES Chief Complaint Chief Complaint Headaches , B SDH ASSESSMENT AND PLAN: 1. Acute, nontraumatic bilateral subdural hematomas: s/p bilat nela holes on 06/13, 06/16. 06/23. Dr Soto following 2. Metabolic encephalopathy: improved, almost to baseline. Dr Leiva following 3. Marfan's syndrome; with hx of aortic and mitral valve replacements 4. Chronic anticoag (for AVR): coumadin restarted, subtherapeutic INR. managed by pharm 5. HTN: well controlled on current regimen 6. Dysphagia: resolved. reg diet 7. L eye blindness: chronic 8. Dispo: [facility] when therapeutic on coumadin, no recurrent bleed. d/w pt and brother in detail Vitals Vitals Vital Signs Date Time Temp Pulse Resp B/P Pulse Ox O2 Delivery O2 Flow Rate FiO2 06/26/16 07:00 97.9 89 16 97/61 94 Room Air 97.9 Physical Exam Physical Exam bilat temporal nela holes covered with gauze General: Alert, Cooperative, No acute distress, Other (Confused and weak) Heart: Regular rate Lungs: Clear, Other Abdomen: Normal bowel sounds, Soft, No tenderness Extremities: No clubbing, No edema Skin: No rashes, No breakdown Labs LABS Laboratory Tests Test 06/26/16 07:15 White Blood Count 4.7x10^3/uL (4.0-11.0) Red Blood Count 4.17x10^6/uL (4.30-5.70) Hemoglobin 12.5g/dL (13.0-17.5) Hematocrit 37.2% (39.0-53.0) Mean Corpuscular Volume 89fL (79-100) Mean Corpuscular Hemoglobin 30pg (25-35) Mean Corpuscular Hemoglobin Concent 34g/dL (31-37) Red Cell Distribution Width 13.4% (11.5-14.5) Platelet Count 230x10^3/uL (140-400) Neutrophils (%) (Auto) 57% (31-73) Lymphocytes (%) (Auto) 22% (24-48) Monocytes (%) (Auto) 12% (0-9) Eosinophils (%) (Auto) 7% (0-3) Basophils (%) (Auto) 2% (0-3) Neutrophils # (Auto) 2.7x10^3uL (1.8-7.7) Lymphocytes # (Auto) 1.0x10^3/uL (1.0-4.8) Monocytes # (Auto) 0.6x10^3/uL (0.0-1.1) Eosinophils # (Auto) 0.3x10^3/uL (0.0-0.7) Basophils # (Auto) 0.1x10^3/uL (0.0-0.2) Sodium Level 143mmol/L (136-145) Potassium Level 3.7mmol/L (3.5-5.1) Chloride Level 108mmol/L (98-107) Carbon Dioxide Level 24mmol/L (21-32) Anion Gap 11 (6-14) Blood Urea Nitrogen 12mg/dL (8-26) Creatinine 0.8mg/dL (0.7-1.3) Estimated GFR (Cockcroft-Gault) 102.3 Glucose Level 142mg/dL (70-99) Calcium Level 8.5mg/dL (8.5-10.1) Review of Systems Review of Systems no new issues. feels good. Comment Review of Relevant I have reviewed the following items jordy (where applicable) has been applied. Labs Laboratory Tests Test 06/25/16 04:47 06/25/16 05:00 06/26/16 07:15 White Blood Count 6.0x10^3/uL (4.0-11.0) 4.7x10^3/uL (4.0-11.0) Red Blood Count 4.27x10^6/uL (4.30-5.70) 4.17x10^6/uL (4.30-5.70) Hemoglobin 12.8g/dL (13.0-17.5) 12.5g/dL (13.0-17.5) Hematocrit 38.0% (39.0-53.0) 37.2% (39.0-53.0) Mean Corpuscular Volume 89fL (79-100) 89fL (79-100) Mean Corpuscular Hemoglobin 30pg (25-35) 30pg (25-35) Mean Corpuscular Hemoglobin Concent 34g/dL (31-37) 34g/dL (31-37) Red Cell Distribution Width 13.2% (11.5-14.5) 13.4% (11.5-14.5) Platelet Count 231x10^3/uL (140-400) 230x10^3/uL (140-400) Neutrophils (%) (Auto) 58% (31-73) 57% (31-73) Lymphocytes (%) (Auto) 22% (24-48) 22% (24-48) Monocytes (%) (Auto) 11% (0-9) 12% (0-9) Eosinophils (%) (Auto) 7% (0-3) 7% (0-3) Basophils (%) (Auto) 2% (0-3) 2% (0-3) Neutrophils # (Auto) 3.5x10^3uL (1.8-7.7) 2.7x10^3uL (1.8-7.7) Lymphocytes # (Auto) 1.3x10^3/uL (1.0-4.8) 1.0x10^3/uL (1.0-4.8) Monocytes # (Auto) 0.7x10^3/uL (0.0-1.1) 0.6x10^3/uL (0.0-1.1) Eosinophils # (Auto) 0.4x10^3/uL (0.0-0.7) 0.3x10^3/uL (0.0-0.7) Basophils # (Auto) 0.1x10^3/uL (0.0-0.2) 0.1x10^3/uL (0.0-0.2) Sodium Level 140mmol/L (136-145) 143mmol/L (136-145) Potassium Level 4.1mmol/L (3.5-5.1) 3.7mmol/L (3.5-5.1) Chloride Level 105mmol/L (98-107) 108mmol/L (98-107) Carbon Dioxide Level 28mmol/L (21-32) 24mmol/L (21-32) Anion Gap 7 (6-14) 11 (6-14) Blood Urea Nitrogen 11mg/dL (8-26) 12mg/dL (8-26) Creatinine 0.8mg/dL (0.7-1.3) 0.8mg/dL (0.7-1.3) Estimated GFR (Cockcroft-Gault) 102.3 102.3 Glucose Level 82mg/dL (70-99) 142mg/dL (70-99) Calcium Level 8.4mg/dL (8.5-10.1) 8.5mg/dL (8.5-10.1) Prothrombin Time 15.5SEC (11.7-14.0) Prothromb Time International Ratio 1.3 (0.8-1.1) Laboratory Tests Test 06/26/16 07:15 White Blood Count 4.7x10^3/uL (4.0-11.0) Red Blood Count 4.17x10^6/uL (4.30-5.70) Hemoglobin 12.5g/dL (13.0-17.5) Hematocrit 37.2% (39.0-53.0) Mean Corpuscular Volume 89fL (79-100) Mean Corpuscular Hemoglobin 30pg (25-35) Mean Corpuscular Hemoglobin Concent 34g/dL (31-37) Red Cell Distribution Width 13.4% (11.5-14.5) Platelet Count 230x10^3/uL (140-400) Neutrophils (%) (Auto) 57% (31-73) Lymphocytes (%) (Auto) 22% (24-48) Monocytes (%) (Auto) 12% (0-9) Eosinophils (%) (Auto) 7% (0-3) Basophils (%) (Auto) 2% (0-3) Neutrophils # (Auto) 2.7x10^3uL (1.8-7.7) Lymphocytes # (Auto) 1.0x10^3/uL (1.0-4.8) Monocytes # (Auto) 0.6x10^3/uL (0.0-1.1) Eosinophils # (Auto) 0.3x10^3/uL (0.0-0.7) Basophils # (Auto) 0.1x10^3/uL (0.0-0.2) Sodium Level 143mmol/L (136-145) Potassium Level 3.7mmol/L (3.5-5.1) Chloride Level 108mmol/L (98-107) Carbon Dioxide Level 24mmol/L (21-32) Anion Gap 11 (6-14) Blood Urea Nitrogen 12mg/dL (8-26) Creatinine 0.8mg/dL (0.7-1.3) Estimated GFR (Cockcroft-Gault) 102.3 Glucose Level 142mg/dL (70-99) Calcium Level 8.5mg/dL (8.5-10.1) Microbiology 06/13/16 Urine Culture - Final, Complete 06/13/16 Urine Culture Result 1 (GLENN) - Final, Complete Medications Current Medications Sodium Chloride (Iv Sodium Chloride 0.9% 1000ml Bag) 1,000 ml @ 100 mls/hr 1X ONCE IV Last administered on 06/13/16 13:45; Start 06/13/16 at 13:45; Stop at 23:44; Status DC Phytonadione (Mephyton) 10 mg 1X ONCE PO Last administered on 06/13/16 15:03; Start 06/13/16 at 15:00; Stop 06/13/16 at 15:01; Status DC Ondansetron HCl 4 mg 4 mg PRN Q8HRS PRN IV NAUSEA/VOMITING; Start 06/13/16 at 16 :15; Stop 06/14/16 at 16:14; Status DC Sodium Chloride (Iv Sodium Chloride 0.9% 1000ml Bag) 1,000 ml @ 100 mls/hr Q10H IV Last administered on 06/14/16 05:49; Start 06/13/16 at 16:10; Stop at 13:20; Status DC Morphine Sulfate 2 mg 1X ONCE IV Last administered on 06/13/16 18:08; Start at 18:30; Stop 06/13/16 at 18:31; Status DC Oxycodone/ Acetaminophen (Percocet 5/325) 1 tab PRN Q4HRS PRN PO PAIN Last administered on 06/24/16 22:43; Start 06/13/16 at 18:00 Oxycodone/ Acetaminophen (Percocet 5/325) 2 tab PRN Q4HRS PRN PO PAIN Last administered on 06/25/16 19:57; Start 06/13/16 at 18:00 Metoprolol Succinate (Toprol Xl) 25 mg DAILY PO Last administered on 06/23/16 08:54; Start 06/14/16 at 09:00 Lorazepam 2 mg 2 mg PRN Q4HRS PRN IV ANXIETY / AGITATION Last administered on 14:33; Start 06/13/16 at 19:45 Levetiracetam 500 mg/Sodium Chloride 105 ml @ 400 mls/hr PRN Q12HRS PRN IV SEIZURES; Start 06/13/16 at 19:45 Potassium Chloride/Sodium Chloride (KCl 20 Meq-0.45% Nacl) 1,000 ml @ 100 mls/ hr Q10H IV Last administered on 06/17/16 03:24; Start 06/14/16 at 13:30; Stop 06/17/16 at 12:24; Status DC Warfarin Sodium (Coumadin Per Pharmacy) 1 each PRN DAILY PRN MC SEE COMMENTS Last administered on 06/25/16 10:57; Start 06/14/16 at 16:00 Warfarin Sodium 2.5 mg 2.5 mg 1X WARF ONCE PO ; Start 06/14/16 at 17:00; Stop at 17:01; Status Cancel Bacitracin/Sodium Chloride (Iv Sodium Chloride 0.9% 1000ml Bag) 1,000 ml @ 1, 000 mls/hr 1X PERIOP ONCE IRR Last administered on 06/15/16 12:41; Start at 10:00; Stop 06/15/16 at 10:59; Status DC Ondansetron HCl (Zofran) 4 mg PRN Q6HRS PRN IV Nausea; Start 06/15/16 at 10:00; Stop 06/16/16 at 09:59; Status DC Fentanyl Citrate (Fentanyl 2ml Vial) 25 mcg PRN Q5MIN PRN IV MILD PAIN; Start 06/15/16 at 10:00; Stop 06/16/16 at 09:59; Status DC Fentanyl Citrate (Fentanyl 2ml Vial) 50 mcg PRN Q5MIN PRN IV MODERATE PAIN; Start 06/15/16 at 10:00; Stop 06/16/16 at 09:59; Status DC Morphine Sulfate 1 mg 1 mg PRN Q10MIN PRN IV SEVERE PAIN; Start 06/15/16 at 10: 00; Stop 06/16/16 at 09:59; Status DC Lactated Ringer's (Iv Lactated Ringers) 1,000 ml @ 30 mls/hr Q24H IV ; Start at 09:47; Stop 06/15/16 at 21:46; Status DC Lidocaine HCl 2 ml 1X PRN PRN ID IV START; Start 06/15/16 at 10:00; Stop at 09:59; Status DC Hydromorphone HCl (Dilaudid) 0.5 mg PRN Q10MIN PRN IV SEV PAIN,Second choice; Start 06/15/16 at 10:00; Stop 06/16/16 at 09:59; Status DC Prochlorperazine Edisylate (Compazine) 5 mg PACU PRN PRN IV NAUSEA; Start at 10:00; Stop 06/16/16 at 09:59; Status DC Phytonadione (Vitamin K) 2 mg 1X ONCE SQ Last administered on 06/15/16t 11:21; Start 06/15/16 at 09:45; Stop 06/15/16 at 09:57; Status DC Dexamethasone Sodium Phosphate (Decadron) 20 mg STK-MED ONCE .ROUTE ; Start 06/15 at 10:26; Stop 06/15/16 at 10:27; Status DC Ondansetron HCl (Zofran) 4 mg STK-MED ONCE .ROUTE ; Start 06/15/16 at 10:26; Stop 06/15/16 at 10:27; Status DC Rocuronium Premium 50 mg 50 mg STK-MED ONCE .ROUTE ; Start 06/15/16 at 10:26; Stop 06/15/16 at 10:27; Status DC Propofol (Diprivan) 20 ml @ As Directed STK-MED ONCE IV ; Start 06/15/16 at 10:26 ; Stop 06/15/16 at 10:27; Status DC Lidocaine HCl 100 mg STK-MED ONCE .ROUTE ; Start 06/15/16 at 10:26; Stop 06/15/16 at 10:27; Status DC Fentanyl Citrate (Fentanyl 2ml Vial) 100 mcg STK-MED ONCE .ROUTE ; Start at 10:26; Stop 06/15/16 at 10:27; Status DC Thrombin 20,000 unit STK-MED ONCE TP Last administered on 06/15/16 12:41; Start 06/15/16 at 10:47; Stop 06/15/16 at 10:48; Status DC Gelatin (Gelfoam Size 100) 1 each STK-MED ONCE .ROUTE Last administered on 06/15 12:41; Start 06/15/16 at 10:48; Stop 06/15/16 at 10:49; Status DC Bupivacaine HCl/ Epinephrine Bitart (Sensorcaine-Epi 0.25%-1:502447 Mpf) 30 ml STK-MED ONCE .ROUTE Last administered on 06/15/16 12:41; Start 06/15/16 at 10:48 ; Stop 06/15/16 at 10:49; Status DC Cellulose 1 each STK-MED ONCE .ROUTE ; Start 06/15/16 at 10:49; Stop 06/15/16 at 10:50; Status DC Potassium Chloride 20 meq 20 meq 1X ONCE PO Last administered on 06/15/16 11: 21; Start 06/15/16 at 11:15; Stop 06/15/16 at 11:16; Status DC Cefazolin Sodium/ Dextrose (Ancef 2gm Premix) 50 ml @ 100 mls/hr 1X PREOP PRN IV PER PROTOCOL Last administered on 06/15/16 12:56; Start 06/16/16 at 06:00; Stop 06/16/16 at 18:00; Status DC Ephedrine Sulfate 50 mg STK-MED ONCE IV ; Start 06/15/16 at 13:04; Stop 06/15/16 at 13:05; Status DC Glycopyrrolate (Robinul) 1 mg STK-MED ONCE .ROUTE ; Start 06/15/16 at 13:39; Stop 06/15/16 at 13:40; Status DC Neostigmine Methylsulfate 5 mg STK-MED ONCE .ROUTE ; Start 06/15/16 at 13:39; Stop 06/15/16 at 13:40; Status DC Fentanyl Citrate (Fentanyl 2ml Vial) 100 mcg STK-MED ONCE .ROUTE ; Start at 13:55; Stop 06/15/16 at 13:56; Status DC Sevoflurane (Ultane) 30 ml STK-MED ONCE IH ; Start 06/15/16 at 13:55; Stop at 13:56; Status DC Sevoflurane (Ultane) 60 ml STK-MED ONCE IH ; Start 06/15/16 at 13:55; Stop at 13:56; Status DC Warfarin Sodium (Coumadin - No Dose Today) 1 each 1X WARF ONCE MC Last administered on 06/15/16 16:00; Start 06/15/16 at 16:00; Stop 06/15/16 at 16:01; Status DC Cefazolin Sodium/ Dextrose (Ancef 2gm Premix) 2 gm STK-MED ONCE IV ; Start at 13:00; Stop 06/16/16 at 08:05; Status DC Famotidine (Pepcid) 20 mg BID IVP ; Start 06/16/16 at 21:00; Stop 06/16/16 at 21 :00; Status DC Famotidine (Pepcid) 20 mg BID PO Last administered on 06/26/16 08:59; Start at 13:00 Warfarin Sodium (Coumadin) 5 mg 1X WARF ONCE PO Last administered on 18:15; Start 06/17/16 at 16:00; Stop 06/17/16 at 16:01; Status DC Warfarin Sodium (Coumadin) 7.5 mg 1X WARF ONCE PO Last administered on 16:25; Start 06/18/16 at 16:00; Stop 06/18/16 at 16:01; Status DC Ondansetron HCl (Zofran) 4 mg PRN Q6HRS PRN IV NAUSEA/VOMITING Last administered on 06/24/16 13:23; Start 06/19/16 at 03:00 Morphine Sulfate 2 mg PRN Q2HR PRN IV PAIN Last administered on 06/20/16 08:06 ; Start 06/19/16 at 03:00; Stop 06/20/16 at 10:14; Status DC Warfarin Sodium 7.5 mg 7.5 mg 1X WARF ONCE PO ; Start 06/19/16 at 16:00; Stop 06/19/16 at 16:01; Status DC Amino Acids/ Glycerin/ Electrolytes (Procalamine) 1,000 ml @ 75 mls/hr [id number] IV Last administered on 06/23/16 01:06; Start 06/19/16 at 16:15; Stop at 10:24; Status DC Fentanyl Citrate (Fentanyl 2ml Vial) 50 mcg Q6HRS PRN IM BREAKTHROUGH PAIN; Start 06/20/16 at 10:15; Stop 06/20/16 at 11:08; Status DC Fentanyl Citrate (Fentanyl 2ml Vial) 50 mcg PRN Q6HRS PRN IV BREAKTHROUGH PAIN Last administered on 06/22/16 22:11; Start 06/20/16 at 11:15 Warfarin Sodium (Coumadin) 7.5 mg 1X WARF ONCE PO ; Start 06/20/16 at 16:00; Stop 06/20/16 at 16:01; Status DC Enoxaparin Sodium (Lovenox Per Pharmacy Treatment Dosing) 1 each PRN DAILY PRN MC SEE COMMENTS; Start 06/21/16 at 12:30; Stop 06/22/16 at 12:29; Status DC Enoxaparin Sodium 60 mg 60 mg Q12HR SQ Last administered on 06/22/16 21:13; Start 06/21/16 at 13:00; Stop 06/23/16 at 10:24; Status DC Bacitracin/Sodium Chloride (Iv Sodium Chloride 0.9% 1000ml Bag) 1,000 ml @ 1, 000 mls/hr 1X PERIOP ONCE IRR ; Start 06/22/16 at 09:00; Stop 06/22/16 at 09:59 ; Status DC Ondansetron HCl (Zofran) 4 mg PRN Q6HRS PRN IV Nausea; Start 06/22/16 at 09:00 ; Stop 06/22/16 at 18:00; Status DC Fentanyl Citrate (Fentanyl 2ml Vial) 25 mcg PRN Q5MIN PRN IV MILD PAIN; Start 06/22/16 at 09:00; Stop 06/22/16 at 18:00; Status DC Fentanyl Citrate (Fentanyl 2ml Vial) 50 mcg PRN Q5MIN PRN IV MODERATE PAIN Last administered on 06/22/16 17:20; Start 06/22/16 at 09:00; Stop 06/22/16 at 18:00; Status DC Morphine Sulfate 1 mg 1 mg PRN Q10MIN PRN IV SEVERE PAIN; Start 06/22/16 at 09: 00; Stop 06/22/16 at 18:00; Status DC Lactated Ringer's (Iv Lactated Ringers) 1,000 ml @ 30 mls/hr Q24H IV Last administered on 06/22/16 10:55; Start 06/22/16 at 08:52; Stop 06/22/16 at 20:51 ; Status DC Lidocaine HCl 2 ml 1X PRN PRN ID IV START; Start 06/22/16 at 09:00; Stop at 18:00; Status DC Hydromorphone HCl (Dilaudid) 0.5 mg PRN Q10MIN PRN IV SEV PAIN,Second choice; Start 06/22/16 at 09:00; Stop 06/22/16 at 18:00; Status DC Prochlorperazine Edisylate (Compazine) 5 mg PACU PRN PRN IV NAUSEA; Start 06/22 at 09:00; Stop 06/22/16 at 18:00; Status DC Bupivacaine HCl/ Epinephrine Bitart (Sensorcaine-Epi 0.25%-1:383729 Mpf) 30 ml STK-MED ONCE .ROUTE Last administered on 06/22/16 12:21; Start 06/22/16 at 09: 22; Stop 06/22/16 at 09:23; Status DC Cellulose 1 each STK-MED ONCE .ROUTE ; Start 06/22/16 at 09:22; Stop 06/22/16 at 09:23; Status DC Thrombin 20,000 unit STK-MED ONCE TP Last administered on 06/22/16 12:21; Start 06/22/16 at 09:22; Stop 06/22/16 at 09:23; Status DC Gelatin 1 each 1 each STK-MED ONCE .ROUTE Last administered on 06/22/16 12:21 ; Start 06/22/16 at 09:23; Stop 06/22/16 at 09:24; Status DC Propofol (Diprivan) 20 ml @ As Directed STK-MED ONCE IV ; Start 06/22/16 at 09: 57; Stop 06/22/16 at 09:58; Status DC Lidocaine HCl 100 mg STK-MED ONCE .ROUTE ; Start 06/22/16 at 09:57; Stop at 09:58; Status DC Rocuronium Premium (Zemuron) 50 mg STK-MED ONCE .ROUTE ; Start 06/22/16 at 09:57 ; Stop 06/22/16 at 09:58; Status DC Ondansetron HCl (Zofran) 4 mg STK-MED ONCE .ROUTE ; Start 06/22/16 at 09:58; Stop 06/22/16 at 09:59; Status DC Dexamethasone Sodium Phosphate (Decadron) 20 mg STK-MED ONCE .ROUTE ; Start at 09:58; Stop 06/22/16 at 09:59; Status DC Fentanyl Citrate 100 mcg 100 mcg STK-MED ONCE .ROUTE ; Start 06/22/16 at 09:59; Stop 06/22/16 at 10:00; Status DC Cefazolin Sodium/ Dextrose (Ancef 2gm Premix) 50 ml @ 100 mls/hr 1X PREOP IV Last administered on 06/22/16 12:37; Start 06/22/16 at 10:15 Metoprolol Tartrate (Lopressor) 5 mg STK-MED ONCE .ROUTE ; Start 06/22/16 at 11: 05; Stop 06/22/16 at 11:06; Status DC Metoprolol Tartrate (Lopressor) 5 mg 1X ONCE IVP Last administered on 11:12; Start 06/22/16 at 11:15; Stop 06/22/16 at 11:16; Status DC Ephedrine Sulfate 50 mg STK-MED ONCE IV ; Start 06/22/16 at 12:11; Stop at 12:12; Status DC Glycopyrrolate (Robinul) 1 mg STK-MED ONCE .ROUTE ; Start 06/22/16 at 12:40; Stop 06/22/16 at 12:41; Status DC Neostigmine Methylsulfate 5 mg STK-MED ONCE .ROUTE ; Start 06/22/16 at 12:40; Stop 06/22/16 at 12:41; Status DC Sevoflurane 60 ml 60 ml STK-MED ONCE IH ; Start 06/22/16 at 13:05; Stop at 13:06; Status DC Cefazolin Sodium/ Sodium Chloride (Ancef/Iv Sodium Chloride 0.9% 50ml) 50 ml @ 100 mls/hr Q8HRS IV Last administered on 06/26/16 06:12; Start 06/22/16 at 23: 00 Warfarin Sodium (Coumadin) 7.5 mg 1X WARF ONCE PO Last administered on 17:06; Start 06/23/16 at 16:00; Stop 06/23/16 at 16:01; Status DC Enoxaparin Sodium (Lovenox 60mg Syringe) 60 mg Q12HR SQ Last administered on 08:59; Start 06/24/16 at 21:00 Warfarin Sodium (Coumadin) 7.5 mg 1X WARF ONCE PO Last administered on 15:35; Start 06/24/16 at 16:00; Stop 06/24/16 at 16:01; Status DC Warfarin Sodium (Coumadin) 5 mg 1X WARF ONCE PO Last administered on 16:49; Start 06/25/16 at 16:00; Stop 06/25/16 at 16:01; Status DC Alprazolam (Xanax) 0.25 mg PRN Q6HRS PRN PO ANXIETY / AGITATION; Start at 08:00 Active Scripts Active Reported Coumadin (Warfarin Sodium) 5 Mg Tablet 1 Tab PO DAILY Metoprolol Succinate ( Xl ) (Metoprolol Succinate) 25 Mg Tab.er.24h 25 Mg PO DAILY Vitals/I & O Vital Sign - Last 24 Hours 06/25/16 06/25/16 06/25/16 06/25/16 11:00 15:00 19:00 19:57 Temp 98.2 97.3 97.9 98.2 97.3 97.9 Pulse 62 78 93 Resp B/P 95/53 92/60 92/65 Pulse Ox 95 94 95 O2 Delivery Room Air Room Air Room Air Room Air 06/25/16 06/25/16 06/25/16 06/26/16 20:00 21:00 23:46 03:37 Temp 98.1 98.1 98.1 98.1 Pulse 84 92 Resp 18 18 B/P 92/52 99/56 Pulse Ox 93 94 O2 Delivery Room Air Room Air Room Air Room Air 06/26/16 07:00 Temp 97.9 97.9 Pulse 89 Resp 16 B/P 97/61 Pulse Ox 94 O2 Delivery Room Air Intake and Output 06/25/16 06/25/16 06/26/16 15:00 23:00 07:00 Intake Total 290 ml Output Total 740 ml 150 ml Balance -450 ml -150 ml JOSSELYN MORRIS MD Jun 26, 2016 09:24
--- NOTE | 2016-06-26 09:59 | PDOC ---
PROGRESS NOTES Subjective Subjective resting in bed brother at bedside denies headache no complaints Objective Objective Vital Signs Date Time Temp Pulse Resp B/P Pulse Ox O2 Delivery O2 Flow Rate FiO2 06/26/16 07:00 97.9 89 16 97/61 94 Room Air 97.9 06/24/16 04:00 2.0 Intake and Output 06/26/16 07:00 Intake Total 290 ml Output Total 890 ml Balance -600 ml Intake Oral 240 ml IV Total 50 ml Output Urine Total 890 ml # Voids 1 Physical Exam General: Alert, Oriented X3, Cooperative, No acute distress MUSCULOSKELETAL: Other (MIRANDA) Neuro: Normal speech Skin: Other (incisions dry, navid intact) Assessment Assessment Problems Medical Problems: (1) Subdural hematoma Status: Acute (2) Supratherapeutic INR Status: Acute Plan Plan of Care labs noted continue PT Could dc from NS standpoint Comment Review of Relevant I have reviewed the following items jordy (where applicable) has been applied. Labs Laboratory Tests Test 06/25/16 04:47 06/25/16 05:00 06/26/16 07:15 White Blood Count 6.0x10^3/uL (4.0-11.0) 4.7x10^3/uL (4.0-11.0) Red Blood Count 4.27x10^6/uL (4.30-5.70) 4.17x10^6/uL (4.30-5.70) Hemoglobin 12.8g/dL (13.0-17.5) 12.5g/dL (13.0-17.5) Hematocrit 38.0% (39.0-53.0) 37.2% (39.0-53.0) Mean Corpuscular Volume 89fL (79-100) 89fL (79-100) Mean Corpuscular Hemoglobin 30pg (25-35) 30pg (25-35) Mean Corpuscular Hemoglobin Concent 34g/dL (31-37) 34g/dL (31-37) Red Cell Distribution Width 13.2% (11.5-14.5) 13.4% (11.5-14.5) Platelet Count 231x10^3/uL (140-400) 230x10^3/uL (140-400) Neutrophils (%) (Auto) 58% (31-73) 57% (31-73) Lymphocytes (%) (Auto) 22% (24-48) 22% (24-48) Monocytes (%) (Auto) 11% (0-9) 12% (0-9) Eosinophils (%) (Auto) 7% (0-3) 7% (0-3) Basophils (%) (Auto) 2% (0-3) 2% (0-3) Neutrophils # (Auto) 3.5x10^3uL (1.8-7.7) 2.7x10^3uL (1.8-7.7) Lymphocytes # (Auto) 1.3x10^3/uL (1.0-4.8) 1.0x10^3/uL (1.0-4.8) Monocytes # (Auto) 0.7x10^3/uL (0.0-1.1) 0.6x10^3/uL (0.0-1.1) Eosinophils # (Auto) 0.4x10^3/uL (0.0-0.7) 0.3x10^3/uL (0.0-0.7) Basophils # (Auto) 0.1x10^3/uL (0.0-0.2) 0.1x10^3/uL (0.0-0.2) Sodium Level 140mmol/L (136-145) 143mmol/L (136-145) Potassium Level 4.1mmol/L (3.5-5.1) 3.7mmol/L (3.5-5.1) Chloride Level 105mmol/L (98-107) 108mmol/L (98-107) Carbon Dioxide Level 28mmol/L (21-32) 24mmol/L (21-32) Anion Gap 7 (6-14) 11 (6-14) Blood Urea Nitrogen 11mg/dL (8-26) 12mg/dL (8-26) Creatinine 0.8mg/dL (0.7-1.3) 0.8mg/dL (0.7-1.3) Estimated GFR (Cockcroft-Gault) 102.3 102.3 Glucose Level 82mg/dL (70-99) 142mg/dL (70-99) Calcium Level 8.4mg/dL (8.5-10.1) 8.5mg/dL (8.5-10.1) Prothrombin Time 15.5SEC (11.7-14.0) Prothromb Time International Ratio 1.3 (0.8-1.1) Laboratory Tests Test 06/26/16 07:15 White Blood Count 4.7x10^3/uL (4.0-11.0) Red Blood Count 4.17x10^6/uL (4.30-5.70) Hemoglobin 12.5g/dL (13.0-17.5) Hematocrit 37.2% (39.0-53.0) Mean Corpuscular Volume 89fL (79-100) Mean Corpuscular Hemoglobin 30pg (25-35) Mean Corpuscular Hemoglobin Concent 34g/dL (31-37) Red Cell Distribution Width 13.4% (11.5-14.5) Platelet Count 230x10^3/uL (140-400) Neutrophils (%) (Auto) 57% (31-73) Lymphocytes (%) (Auto) 22% (24-48) Monocytes (%) (Auto) 12% (0-9) Eosinophils (%) (Auto) 7% (0-3) Basophils (%) (Auto) 2% (0-3) Neutrophils # (Auto) 2.7x10^3uL (1.8-7.7) Lymphocytes # (Auto) 1.0x10^3/uL (1.0-4.8) Monocytes # (Auto) 0.6x10^3/uL (0.0-1.1) Eosinophils # (Auto) 0.3x10^3/uL (0.0-0.7) Basophils # (Auto) 0.1x10^3/uL (0.0-0.2) Sodium Level 143mmol/L (136-145) Potassium Level 3.7mmol/L (3.5-5.1) Chloride Level 108mmol/L (98-107) Carbon Dioxide Level 24mmol/L (21-32) Anion Gap 11 (6-14) Blood Urea Nitrogen 12mg/dL (8-26) Creatinine 0.8mg/dL (0.7-1.3) Estimated GFR (Cockcroft-Gault) 102.3 Glucose Level 142mg/dL (70-99) Calcium Level 8.5mg/dL (8.5-10.1) Microbiology 06/13/16 Urine Culture - Final, Complete 06/13/16 Urine Culture Result 1 (GLENN) - Final, Complete Medications Current Medications Sodium Chloride (Iv Sodium Chloride 0.9% 1000ml Bag) 1,000 ml @ 100 mls/hr 1X ONCE IV Last administered on 06/13/16 13:45; Start 06/13/16 at 13:45; Stop at 23:44; Status DC Phytonadione (Mephyton) 10 mg 1X ONCE PO Last administered on 06/13/16 15:03; Start 06/13/16 at 15:00; Stop 06/13/16 at 15:01; Status DC Ondansetron HCl 4 mg 4 mg PRN Q8HRS PRN IV NAUSEA/VOMITING; Start 06/13/16 at 16 :15; Stop 06/14/16 at 16:14; Status DC Sodium Chloride (Iv Sodium Chloride 0.9% 1000ml Bag) 1,000 ml @ 100 mls/hr Q10H IV Last administered on 06/14/16 05:49; Start 06/13/16 at 16:10; Stop at 13:20; Status DC Morphine Sulfate 2 mg 1X ONCE IV Last administered on 06/13/16 18:08; Start at 18:30; Stop 06/13/16 at 18:31; Status DC Oxycodone/ Acetaminophen (Percocet 5/325) 1 tab PRN Q4HRS PRN PO PAIN Last administered on 06/24/16 22:43; Start 06/13/16 at 18:00 Oxycodone/ Acetaminophen (Percocet 5/325) 2 tab PRN Q4HRS PRN PO PAIN Last administered on 06/25/16 19:57; Start 06/13/16 at 18:00 Metoprolol Succinate (Toprol Xl) 25 mg DAILY PO Last administered on 06/23/16 08:54; Start 06/14/16 at 09:00 Lorazepam 2 mg 2 mg PRN Q4HRS PRN IV ANXIETY / AGITATION Last administered on 14:33; Start 06/13/16 at 19:45 Levetiracetam 500 mg/Sodium Chloride 105 ml @ 400 mls/hr PRN Q12HRS PRN IV SEIZURES; Start 06/13/16 at 19:45 Potassium Chloride/Sodium Chloride (KCl 20 Meq-0.45% Nacl) 1,000 ml @ 100 mls/ hr Q10H IV Last administered on 06/17/16 03:24; Start 06/14/16 at 13:30; Stop 06/17/16 at 12:24; Status DC Warfarin Sodium (Coumadin Per Pharmacy) 1 each PRN DAILY PRN MC SEE COMMENTS Last administered on 06/25/16 10:57; Start 06/14/16 at 16:00 Warfarin Sodium 2.5 mg 2.5 mg 1X WARF ONCE PO ; Start 06/14/16 at 17:00; Stop at 17:01; Status Cancel Bacitracin/Sodium Chloride (Iv Sodium Chloride 0.9% 1000ml Bag) 1,000 ml @ 1, 000 mls/hr 1X PERIOP ONCE IRR Last administered on 06/15/16 12:41; Start at 10:00; Stop 06/15/16 at 10:59; Status DC Ondansetron HCl (Zofran) 4 mg PRN Q6HRS PRN IV Nausea; Start 06/15/16 at 10:00; Stop 06/16/16 at 09:59; Status DC Fentanyl Citrate (Fentanyl 2ml Vial) 25 mcg PRN Q5MIN PRN IV MILD PAIN; Start 06/15/16 at 10:00; Stop 06/16/16 at 09:59; Status DC Fentanyl Citrate (Fentanyl 2ml Vial) 50 mcg PRN Q5MIN PRN IV MODERATE PAIN; Start 06/15/16 at 10:00; Stop 06/16/16 at 09:59; Status DC Morphine Sulfate 1 mg 1 mg PRN Q10MIN PRN IV SEVERE PAIN; Start 06/15/16 at 10: 00; Stop 06/16/16 at 09:59; Status DC Lactated Ringer's (Iv Lactated Ringers) 1,000 ml @ 30 mls/hr Q24H IV ; Start at 09:47; Stop 06/15/16 at 21:46; Status DC Lidocaine HCl 2 ml 1X PRN PRN ID IV START; Start 06/15/16 at 10:00; Stop at 09:59; Status DC Hydromorphone HCl (Dilaudid) 0.5 mg PRN Q10MIN PRN IV SEV PAIN,Second choice; Start 06/15/16 at 10:00; Stop 06/16/16 at 09:59; Status DC Prochlorperazine Edisylate (Compazine) 5 mg PACU PRN PRN IV NAUSEA; Start at 10:00; Stop 06/16/16 at 09:59; Status DC Phytonadione (Vitamin K) 2 mg 1X ONCE SQ Last administered on 06/15/16 11:21; Start 06/15/16 at 09:45; Stop 06/15/16 at 09:57; Status DC Dexamethasone Sodium Phosphate (Decadron) 20 mg STK-MED ONCE .ROUTE ; Start 06/15 at 10:26; Stop 06/15/16 at 10:27; Status DC Ondansetron HCl (Zofran) 4 mg STK-MED ONCE .ROUTE ; Start 06/15/16 at 10:26; Stop 06/15/16 at 10:27; Status DC Rocuronium [place] 50 mg 50 mg STK-MED ONCE .ROUTE ; Start 06/15/16 at 10:26; Stop 06/15/16 at 10:27; Status DC Propofol (Diprivan) 20 ml @ As Directed STK-MED ONCE IV ; Start 06/15/16 at 10:26 ; Stop 06/15/16 at 10:27; Status DC Lidocaine HCl 100 mg STK-MED ONCE .ROUTE ; Start 06/15/16 at 10:26; Stop 06/15/16 at 10:27; Status DC Fentanyl Citrate (Fentanyl 2ml Vial) 100 mcg STK-MED ONCE .ROUTE ; Start at 10:26; Stop 06/15/16 at 10:27; Status DC Thrombin 20,000 unit STK-MED ONCE TP Last administered on 06/15/16 12:41; Start 06/15/16 at 10:47; Stop 06/15/16 at 10:48; Status DC Gelatin (Gelfoam Size 100) 1 each STK-MED ONCE .ROUTE Last administered on 06/15 12:41; Start 06/15/16 at 10:48; Stop 06/15/16 at 10:49; Status DC Bupivacaine HCl/ Epinephrine Bitart (Sensorcaine-Epi 0.25%-1:840329 Mpf) 30 ml STK-MED ONCE .ROUTE Last administered on 06/15/16 12:41; Start 06/15/16 at 10:48 ; Stop 06/15/16 at 10:49; Status DC Cellulose 1 each STK-MED ONCE .ROUTE ; Start 06/15/16 at 10:49; Stop 06/15/16 at 10:50; Status DC Potassium Chloride 20 meq 20 meq 1X ONCE PO Last administered on 06/15/16 11: 21; Start 06/15/16 at 11:15; Stop 06/15/16 at 11:16; Status DC Cefazolin Sodium/ Dextrose (Ancef 2gm Premix) 50 ml @ 100 mls/hr 1X PREOP PRN IV PER PROTOCOL Last administered on 06/15/16 12:56; Start 06/16/16 at 06:00; Stop 06/16/16 at 18:00; Status DC Ephedrine Sulfate 50 mg STK-MED ONCE IV ; Start 06/15/16 at 13:04; Stop 06/15/16 at 13:05; Status DC Glycopyrrolate (Robinul) 1 mg STK-MED ONCE .ROUTE ; Start 06/15/16 at 13:39; Stop 06/15/16 at 13:40; Status DC Neostigmine Methylsulfate 5 mg STK-MED ONCE .ROUTE ; Start 06/15/16 at 13:39; Stop 06/15/16 at 13:40; Status DC Fentanyl Citrate (Fentanyl 2ml Vial) 100 mcg STK-MED ONCE .ROUTE ; Start at 13:55; Stop 06/15/16 at 13:56; Status DC Sevoflurane (Ultane) 30 ml STK-MED ONCE IH ; Start 06/15/16 at 13:55; Stop at 13:56; Status DC Sevoflurane (Ultane) 60 ml STK-MED ONCE IH ; Start 06/15/16 at 13:55; Stop at 13:56; Status DC Warfarin Sodium (Coumadin - No Dose Today) 1 each 1X WARF ONCE MC Last administered on 06/15/16 16:00; Start 06/15/16 at 16:00; Stop 06/15/16 at 16:01; Status DC Cefazolin Sodium/ Dextrose (Ancef 2gm Premix) 2 gm STK-MED ONCE IV ; Start at 13:00; Stop 06/16/16 at 08:05; Status DC Famotidine (Pepcid) 20 mg BID IVP ; Start 06/16/16 at 21:00; Stop 06/16/16 at 21 :00; Status DC Famotidine (Pepcid) 20 mg BID PO Last administered on 06/26/16 08:59; Start at 13:00 Warfarin Sodium (Coumadin) 5 mg 1X WARF ONCE PO Last administered on 18:15; Start 06/17/16 at 16:00; Stop 06/17/16 at 16:01; Status DC Warfarin Sodium (Coumadin) 7.5 mg 1X WARF ONCE PO Last administered on 16:25; Start 06/18/16 at 16:00; Stop 06/18/16 at 16:01; Status DC Ondansetron HCl (Zofran) 4 mg PRN Q6HRS PRN IV NAUSEA/VOMITING Last administered on 06/24/16 13:23; Start 06/19/16 at 03:00 Morphine Sulfate 2 mg PRN Q2HR PRN IV PAIN Last administered on 06/20/16 08:06 ; Start 06/19/16 at 03:00; Stop 06/20/16 at 10:14; Status DC Warfarin Sodium 7.5 mg 7.5 mg 1X WARF ONCE PO ; Start 06/19/16 at 16:00; Stop 06/19/16 at 16:01; Status DC Amino Acids/ Glycerin/ Electrolytes (Procalamine) 1,000 ml @ 75 mls/hr [id number] IV Last administered on 06/23/16 01:06; Start 06/19/16 at 16:15; Stop at 10:24; Status DC Fentanyl Citrate (Fentanyl 2ml Vial) 50 mcg Q6HRS PRN IM BREAKTHROUGH PAIN; Start 06/20/16 at 10:15; Stop 06/20/16 at 11:08; Status DC Fentanyl Citrate (Fentanyl 2ml Vial) 50 mcg PRN Q6HRS PRN IV BREAKTHROUGH PAIN Last administered on 06/22/16 22:11; Start 06/20/16 at 11:15 Warfarin Sodium (Coumadin) 7.5 mg 1X WARF ONCE PO ; Start 06/20/16 at 16:00; Stop 06/20/16 at 16:01; Status DC Enoxaparin Sodium (Lovenox Per Pharmacy Treatment Dosing) 1 each PRN DAILY PRN MC SEE COMMENTS; Start 06/21/16 at 12:30; Stop 06/22/16 at 12:29; Status DC Enoxaparin Sodium 60 mg 60 mg Q12HR SQ Last administered on 06/22/16 21:13; Start 06/21/16 at 13:00; Stop 06/23/16 at 10:24; Status DC Bacitracin/Sodium Chloride (Iv Sodium Chloride 0.9% 1000ml Bag) 1,000 ml @ 1, 000 mls/hr 1X PERIOP ONCE IRR ; Start 06/22/16 at 09:00; Stop 06/22/16 at 09:59 ; Status DC Ondansetron HCl (Zofran) 4 mg PRN Q6HRS PRN IV Nausea; Start 06/22/16 at 09:00 ; Stop 06/22/16 at 18:00; Status DC Fentanyl Citrate (Fentanyl 2ml Vial) 25 mcg PRN Q5MIN PRN IV MILD PAIN; Start 06/22/16 at 09:00; Stop 06/22/16 at 18:00; Status DC Fentanyl Citrate (Fentanyl 2ml Vial) 50 mcg PRN Q5MIN PRN IV MODERATE PAIN Last administered on 06/22/16 17:20; Start 06/22/16 at 09:00; Stop 06/22/16 at 18:00; Status DC Morphine Sulfate 1 mg 1 mg PRN Q10MIN PRN IV SEVERE PAIN; Start 06/22/16 at 09: 00; Stop 06/22/16 at 18:00; Status DC Lactated Ringer's (Iv Lactated Ringers) 1,000 ml @ 30 mls/hr Q24H IV Last administered on 06/22/16 10:55; Start 06/22/16 at 08:52; Stop 06/22/16 at 20:51 ; Status DC Lidocaine HCl 2 ml 1X PRN PRN ID IV START; Start 06/22/16 at 09:00; Stop at 18:00; Status DC Hydromorphone HCl (Dilaudid) 0.5 mg PRN Q10MIN PRN IV SEV PAIN,Second choice; Start 06/22/16 at 09:00; Stop 06/22/16 at 18:00; Status DC Prochlorperazine Edisylate (Compazine) 5 mg PACU PRN PRN IV NAUSEA; Start 06/22 at 09:00; Stop 06/22/16 at 18:00; Status DC Bupivacaine HCl/ Epinephrine Bitart (Sensorcaine-Epi 0.25%-1:453963 Mpf) 30 ml STK-MED ONCE .ROUTE Last administered on 06/22/16 12:21; Start 06/22/16 at 09: 22; Stop 06/22/16 at 09:23; Status DC Cellulose 1 each STK-MED ONCE .ROUTE ; Start 06/22/16 at 09:22; Stop 06/22/16 at 09:23; Status DC Thrombin 20,000 unit STK-MED ONCE TP Last administered on 06/22/16 12:21; Start 06/22/16 at 09:22; Stop 06/22/16 at 09:23; Status DC Gelatin 1 each 1 each STK-MED ONCE .ROUTE Last administered on 06/22/16 12:21 ; Start 06/22/16 at 09:23; Stop 06/22/16 at 09:24; Status DC Propofol (Diprivan) 20 ml @ As Directed STK-MED ONCE IV ; Start 06/22/16 at 09: 57; Stop 06/22/16 at 09:58; Status DC Lidocaine HCl 100 mg STK-MED ONCE .ROUTE ; Start 06/22/16 at 09:57; Stop at 09:58; Status DC Rocuronium [place] (Zemuron) 50 mg STK-MED ONCE .ROUTE ; Start 06/22/16 at 09:57 ; Stop 06/22/16 at 09:58; Status DC Ondansetron HCl (Zofran) 4 mg STK-MED ONCE .ROUTE ; Start 06/22/16 at 09:58; Stop 06/22/16 at 09:59; Status DC Dexamethasone Sodium Phosphate (Decadron) 20 mg STK-MED ONCE .ROUTE ; Start at 09:58; Stop 06/22/16 at 09:59; Status DC Fentanyl Citrate 100 mcg 100 mcg STK-MED ONCE .ROUTE ; Start 06/22/16 at 09:59; Stop 06/22/16 at 10:00; Status DC Cefazolin Sodium/ Dextrose (Ancef 2gm Premix) 50 ml @ 100 mls/hr 1X PREOP IV Last administered on 06/22/16 12:37; Start 06/22/16 at 10:15 Metoprolol Tartrate (Lopressor) 5 mg STK-MED ONCE .ROUTE ; Start 06/22/16 at 11: 05; Stop 06/22/16 at 11:06; Status DC Metoprolol Tartrate (Lopressor) 5 mg 1X ONCE IVP Last administered on 11:12; Start 06/22/16 at 11:15; Stop 06/22/16 at 11:16; Status DC Ephedrine Sulfate 50 mg STK-MED ONCE IV ; Start 06/22/16 at 12:11; Stop at 12:12; Status DC Glycopyrrolate (Robinul) 1 mg STK-MED ONCE .ROUTE ; Start 06/22/16 at 12:40; Stop 06/22/16 at 12:41; Status DC Neostigmine Methylsulfate 5 mg STK-MED ONCE .ROUTE ; Start 06/22/16 at 12:40; Stop 06/22/16 at 12:41; Status DC Sevoflurane 60 ml 60 ml STK-MED ONCE IH ; Start 06/22/16 at 13:05; Stop at 13:06; Status DC Cefazolin Sodium/ Sodium Chloride (Ancef/Iv Sodium Chloride 0.9% 50ml) 50 ml @ 100 mls/hr Q8HRS IV Last administered on 06/26/16 06:12; Start 06/22/16 at 23: 00 Warfarin Sodium (Coumadin) 7.5 mg 1X WARF ONCE PO Last administered on 17:06; Start 06/23/16 at 16:00; Stop 06/23/16 at 16:01; Status DC Enoxaparin Sodium (Lovenox 60mg Syringe) 60 mg Q12HR SQ Last administered on 08:59; Start 06/24/16 at 21:00 Warfarin Sodium (Coumadin) 7.5 mg 1X WARF ONCE PO Last administered on 15:35; Start 06/24/16 at 16:00; Stop 06/24/16 at 16:01; Status DC Warfarin Sodium (Coumadin) 5 mg 1X WARF ONCE PO Last administered on 16:49; Start 06/25/16 at 16:00; Stop 06/25/16 at 16:01; Status DC Alprazolam (Xanax) 0.25 mg PRN Q6HRS PRN PO ANXIETY / AGITATION; Start at 08:00 Active Scripts Active Reported Coumadin (Warfarin Sodium) 5 Mg Tablet 1 Tab PO DAILY Metoprolol Succinate ( Xl ) (Metoprolol Succinate) 25 Mg Tab.er.24h 25 Mg PO DAILY Vitals/I & O Vital Sign - Last 24 Hours 06/25/16 06/25/16 06/25/16 06/25/16 11:00 15:00 19:00 19:57 Temp 98.2 97.3 97.9 98.2 97.3 97.9 Pulse 62 78 93 Resp B/P 95/53 92/60 92/65 Pulse Ox 95 94 95 O2 Delivery Room Air Room Air Room Air Room Air 06/25/16 06/25/16 06/25/16 06/26/16 20:00 21:00 23:46 03:37 Temp 98.1 98.1 98.1 98.1 Pulse 84 92 Resp 18 B/P 92/52 99/56 Pulse Ox 93 94 O2 Delivery Room Air Room Air Room Air Room Air 06/26/16 07:00 Temp 97.9 97.9 Pulse 89 Resp 16 B/P 97/61 Pulse Ox 94 O2 Delivery Room Air Intake and Output 06/25/16 06/25/16 06/26/16 15:00 23:00 07:00 Intake Total 290 ml Output Total 740 ml 150 ml Balance -450 ml -150 ml NATE LINCOLN APRN Jun 26, 2016 09:59
[2016-06-26 10:15] LABS: INR 1.5 (0.8-1.1); PROTHROMBIN TIME PATIENT 17.6 SEC (11.7-14.0)
[2016-06-26 11:00] VITALS: BP 100/62
[2016-06-26] MEDS: POTASSIUM CHLORIDE 20 MEQ TABLET.ER. PO SCH ×2 (11:53→20:06)
[2016-06-26] MEDS: OXYCODONE/APAP 5/325 TABLET. PO PRN ×2 (12:04→21:43)
[2016-06-26 15:00] VITALS: BP 97/62
[2016-06-26] MEDS ORDERED: WARFARIN 6 MG TABLET. PO ONE (16:00)
[2016-06-26 19:46] VITALS: BP 97/63
[2016-06-26 23:39] VITALS: BP 95/66
[2016-06-27 03:00] VITALS: BP 101/65
[2016-06-27] MEDS: CEFAZOLIN SODIUM 1 GM in IV NORMAL SALINE 50ML 50 ML IV SCH ×3 (06:23→21:33)
[2016-06-27] MEDS: OXYCODONE/APAP 5/325 TABLET. PO PRN ×2 (06:24→23:54)
[2016-06-27 07:52] VITALS: BP 89/55
[2016-06-27 07:53] LABS: CALCIUM 8.9 mg/dL (8.5-10.1); CREATININE 0.8 mg/dL (0.7-1.3); GFR 102.3; POTASSIUM 4.5 mmol/L (3.5-5.1)
[2016-06-27 08:00] LABS: BASO # 0.1 x10^3/uL (0.0-0.2); BASO % 2 % (0-3); EOS % 6 % (0-3); HEMATOCRIT 37.6 % (39.0-53.0); HEMOGLOBIN 12.5 g/dL (13.0-17.5); LYMPH # 1.4 x10^3/uL (1.0-4.8); LYMPH % 26 % (24-48); MEAN CORPUSCULAR HEMOGLOBIN 30 pg (25-35); MEAN CORPUSCULAR HGB CONC 33 g/dL (31-37); MEAN CORPUSCULAR VOLUME 90 fL (79-100); MONO % 13 % (0-9); NEUT % 54 % (31-73); PLATELET COUNT 239 x10^3/uL (140-400); RED BLOOD COUNT 4.17 x10^6/uL (4.30-5.70); RED CELL DISTRIBUTION WIDTH 13.6 % (11.5-14.5); WHITE BLOOD COUNT 5.4 x10^3/uL (4.0-11.0)
[2016-06-27 08:06] LABS: INR 1.7 (0.8-1.1); PROTHROMBIN TIME PATIENT 18.7 SEC (11.7-14.0)
[2016-06-27] MEDS: ENOXAPARIN ** NOTE DOSE ** SYRINGE SQ SCH ×2 (09:33→21:33)
[2016-06-27] MEDS: FAMOTIDINE 20 MG TABLET. PO SCH ×2 (09:33→21:32)
[2016-06-27] MEDS: METOPROLOL SUCC 24HR ER 25 MG TAB.ER.24H. PO SCH (09:34)
[2016-06-27] MEDS ORDERED: IV NORMAL SALINE 1000ML BAG 1,000 ML IV ONE (10:15)
[2016-06-27 11:05] VITALS: BP 83/46
--- NOTE | 2016-06-27 11:44 | PDOC ---
PROGRESS NOTES Chief Complaint Chief Complaint Headaches , B SDH ASSESSMENT AND PLAN: 1. Acute, nontraumatic bilateral subdural hematomas: s/p bilat nela holes on 06/13, 06/16. 06/23. Dr Soto following 2. Metabolic encephalopathy: improved, almost to baseline. Dr Leiva following 3. Marfan's syndrome; with hx of aortic and mitral valve replacements 4. Chronic anticoag (for AVR): coumadin restarted, subtherapeutic INR. managed by pharm 5. HTN: well controlled on current regimen 6. Dysphagia: resolved. reg diet 7. L eye blindness: chronic 8. Dispo: SNU when therapeutic on coumadin, no recurrent bleed. d/w pt and brother in detail History of Present Illness History of Present Illness Pt seen and examined VSS More alert today Vitals Vitals Vital Signs Date Time Temp Pulse Resp B/P Pulse Ox O2 Delivery O2 Flow Rate FiO2 06/27/16 11:05 97.5 79 18 83/46 96 Room Air 97.5 Physical Exam Physical Exam bilat temporal nela holes covered with gauze General: Alert, Oriented X3, Cooperative, No acute distress Heart: Regular rate, Normal S1 Lungs: Clear, Other Abdomen: Normal bowel sounds, Soft, No tenderness Extremities: No clubbing, No edema Skin: No breakdown Labs LABS Laboratory Tests Test 06/27/16 06:50 White Blood Count 5.4x10^3/uL (4.0-11.0) Red Blood Count 4.17x10^6/uL (4.30-5.70) Hemoglobin 12.5g/dL (13.0-17.5) Hematocrit 37.6% (39.0-53.0) Mean Corpuscular Volume 90fL (79-100) Mean Corpuscular Hemoglobin 30pg (25-35) Mean Corpuscular Hemoglobin Concent 33g/dL (31-37) Red Cell Distribution Width 13.6% (11.5-14.5) Platelet Count 239x10^3/uL (140-400) Neutrophils (%) (Auto) 54% (31-73) Lymphocytes (%) (Auto) 26% (24-48) Monocytes (%) (Auto) 13% (0-9) Eosinophils (%) (Auto) 6% (0-3) Basophils (%) (Auto) 2% (0-3) Neutrophils # (Auto) 2.9x10^3uL (1.8-7.7) Lymphocytes # (Auto) 1.4x10^3/uL (1.0-4.8) Monocytes # (Auto) 0.7x10^3/uL (0.0-1.1) Eosinophils # (Auto) 0.3x10^3/uL (0.0-0.7) Basophils # (Auto) 0.1x10^3/uL (0.0-0.2) Prothrombin Time 18.7SEC (11.7-14.0) Prothromb Time International Ratio 1.7 (0.8-1.1) Sodium Level 145mmol/L (136-145) Potassium Level 4.5mmol/L (3.5-5.1) Chloride Level 110mmol/L (98-107) Carbon Dioxide Level 29mmol/L (21-32) Anion Gap 6 (6-14) Blood Urea Nitrogen 12mg/dL (8-26) Creatinine 0.8mg/dL (0.7-1.3) Estimated GFR (Cockcroft-Gault) 102.3 Glucose Level 83mg/dL (70-99) Calcium Level 8.9mg/dL (8.5-10.1) Review of Systems Review of Systems co soa but improvong co wekness Looking forward to SNU Wednesday Assessment and Plan Assessmemt and Plan Problems Medical Problems: (1) Subdural hematoma Status: Acute (2) Supratherapeutic INR Status: Acute ASSESSMENT AND PLAN: 1. Acute, nontraumatic bilateral subdural hematomas: s/p bilat nela holes on 06/13, 06/16. 06/23. Dr Soto following 2. Metabolic encephalopathy: improved, almost to baseline. Dr Leiva following 3. Marfan's syndrome; with hx of aortic and mitral valve replacements 4. Chronic anticoag (for AVR): coumadin restarted, subtherapeutic INR. managed by pharm 5. HTN: well controlled on current regimen 6. Dysphagia: resolved. reg diet 7. L eye blindness: chronic 8. Dispo: SNU when therapeutic on coumadin, no recurrent bleed. d/w pt and brother in detail Problems: Comment Review of Relevant I have reviewed the following items jordy (where applicable) has been applied. Labs Laboratory Tests Test 06/26/16 07:15 06/27/16 06:50 White Blood Count 4.7x10^3/uL (4.0-11.0) 5.4x10^3/uL (4.0-11.0) Red Blood Count 4.17x10^6/uL (4.30-5.70) 4.17x10^6/uL (4.30-5.70) Hemoglobin 12.5g/dL (13.0-17.5) 12.5g/dL (13.0-17.5) Hematocrit 37.2% (39.0-53.0) 37.6% (39.0-53.0) Mean Corpuscular Volume 89fL (79-100) 90fL (79-100) Mean Corpuscular Hemoglobin 30pg (25-35) 30pg (25-35) Mean Corpuscular Hemoglobin Concent 34g/dL (31-37) 33g/dL (31-37) Red Cell Distribution Width 13.4% (11.5-14.5) 13.6% (11.5-14.5) Platelet Count 230x10^3/uL (140-400) 239x10^3/uL (140-400) Neutrophils (%) (Auto) 57% (31-73) 54% (31-73) Lymphocytes (%) (Auto) 22% (24-48) 26% (24-48) Monocytes (%) (Auto) 12% (0-9) 13% (0-9) Eosinophils (%) (Auto) 7% (0-3) 6% (0-3) Basophils (%) (Auto) 2% (0-3) 2% (0-3) Neutrophils # (Auto) 2.7x10^3uL (1.8-7.7) 2.9x10^3uL (1.8-7.7) Lymphocytes # (Auto) 1.0x10^3/uL (1.0-4.8) 1.4x10^3/uL (1.0-4.8) Monocytes # (Auto) 0.6x10^3/uL (0.0-1.1) 0.7x10^3/uL (0.0-1.1) Eosinophils # (Auto) 0.3x10^3/uL (0.0-0.7) 0.3x10^3/uL (0.0-0.7) Basophils # (Auto) 0.1x10^3/uL (0.0-0.2) 0.1x10^3/uL (0.0-0.2) Prothrombin Time 17.6SEC (11.7-14.0) 18.7SEC (11.7-14.0) Prothromb Time International Ratio 1.5 (0.8-1.1) 1.7 (0.8-1.1) Sodium Level 143mmol/L (136-145) 145mmol/L (136-145) Potassium Level 3.7mmol/L (3.5-5.1) 4.5mmol/L (3.5-5.1) Chloride Level 108mmol/L (98-107) 110mmol/L (98-107) Carbon Dioxide Level 24mmol/L (21-32) 29mmol/L (21-32) Anion Gap 11 (6-14) 6 (6-14) Blood Urea Nitrogen 12mg/dL (8-26) 12mg/dL (8-26) Creatinine 0.8mg/dL (0.7-1.3) 0.8mg/dL (0.7-1.3) Estimated GFR (Cockcroft-Gault) 102.3 102.3 Glucose Level 142mg/dL (70-99) 83mg/dL (70-99) Calcium Level 8.5mg/dL (8.5-10.1) 8.9mg/dL (8.5-10.1) Magnesium Level 2.0mg/dL (1.8-2.4) Laboratory Tests Test 06/27/16 06:50 White Blood Count 5.4x10^3/uL (4.0-11.0) Red Blood Count 4.17x10^6/uL (4.30-5.70) Hemoglobin 12.5g/dL (13.0-17.5) Hematocrit 37.6% (39.0-53.0) Mean Corpuscular Volume 90fL (79-100) Mean Corpuscular Hemoglobin 30pg (25-35) Mean Corpuscular Hemoglobin Concent 33g/dL (31-37) Red Cell Distribution Width 13.6% (11.5-14.5) Platelet Count 239x10^3/uL (140-400) Neutrophils (%) (Auto) 54% (31-73) Lymphocytes (%) (Auto) 26% (24-48) Monocytes (%) (Auto) 13% (0-9) Eosinophils (%) (Auto) 6% (0-3) Basophils (%) (Auto) 2% (0-3) Neutrophils # (Auto) 2.9x10^3uL (1.8-7.7) Lymphocytes # (Auto) 1.4x10^3/uL (1.0-4.8) Monocytes # (Auto) 0.7x10^3/uL (0.0-1.1) Eosinophils # (Auto) 0.3x10^3/uL (0.0-0.7) Basophils # (Auto) 0.1x10^3/uL (0.0-0.2) Prothrombin Time 18.7SEC (11.7-14.0) Prothromb Time International Ratio 1.7 (0.8-1.1) Sodium Level 145mmol/L (136-145) Potassium Level 4.5mmol/L (3.5-5.1) Chloride Level 110mmol/L (98-107) Carbon Dioxide Level 29mmol/L (21-32) Anion Gap 6 (6-14) Blood Urea Nitrogen 12mg/dL (8-26) Creatinine 0.8mg/dL (0.7-1.3) Estimated GFR (Cockcroft-Gault) 102.3 Glucose Level 83mg/dL (70-99) Calcium Level 8.9mg/dL (8.5-10.1) Microbiology 06/13/16 Urine Culture - Final, Complete 06/13/16 Urine Culture Result 1 (GLENN) - Final, Complete Medications Current Medications Sodium Chloride (Iv Sodium Chloride 0.9% 1000ml Bag) 1,000 ml @ 100 mls/hr 1X ONCE IV Last administered on 06/13/16t 13:45; Start 06/13/16 at 13:45; Stop at 23:44; Status DC Phytonadione (Mephyton) 10 mg 1X ONCE PO Last administered on 06/13/16 15:03; Start 06/13/16 at 15:00; Stop 06/13/16 at 15:01; Status DC Ondansetron HCl 4 mg 4 mg PRN Q8HRS PRN IV NAUSEA/VOMITING; Start 06/13/16 at 16 :15; Stop 06/14/16 at 16:14; Status DC Sodium Chloride (Iv Sodium Chloride 0.9% 1000ml Bag) 1,000 ml @ 100 mls/hr Q10H IV Last administered on 06/14/16 05:49; Start 06/13/16 at 16:10; Stop at 13:20; Status DC Morphine Sulfate 2 mg 1X ONCE IV Last administered on 06/13/16 18:08; Start at 18:30; Stop 06/13/16 at 18:31; Status DC Oxycodone/ Acetaminophen (Percocet 5/325) 1 tab PRN Q4HRS PRN PO PAIN Last administered on 06/27/16 06:24; Start 06/13/16 at 18:00 Oxycodone/ Acetaminophen (Percocet 5/325) 2 tab PRN Q4HRS PRN PO PAIN Last administered on 06/26/16 21:43; Start 06/13/16 at 18:00 Metoprolol Succinate (Toprol Xl) 25 mg DAILY PO Last administered on 06/23/16 08:54; Start 06/14/16 at 09:00 Lorazepam 2 mg 2 mg PRN Q4HRS PRN IV ANXIETY / AGITATION Last administered on 14:33; Start 06/13/16 at 19:45 Levetiracetam 500 mg/Sodium Chloride 105 ml @ 400 mls/hr PRN Q12HRS PRN IV SEIZURES; Start 06/13/16 at 19:45 Potassium Chloride/Sodium Chloride (KCl 20 Meq-0.45% Nacl) 1,000 ml @ 100 mls/ hr Q10H IV Last administered on 06/17/16 03:24; Start 06/14/16 at 13:30; Stop 06/17/16 at 12:24; Status DC Warfarin Sodium (Coumadin Per Pharmacy) 1 each PRN DAILY PRN MC SEE COMMENTS Last administered on 06/26/16t 10:58; Start 06/14/16 at 16:00 Warfarin Sodium 2.5 mg 2.5 mg 1X WARF ONCE PO ; Start 06/14/16 at 17:00; Stop at 17:01; Status Cancel Bacitracin/Sodium Chloride (Iv Sodium Chloride 0.9% 1000ml Bag) 1,000 ml @ 1, 000 mls/hr 1X PERIOP ONCE IRR Last administered on 06/15/16t 12:41; Start at 10:00; Stop 06/15/16 at 10:59; Status DC Ondansetron HCl (Zofran) 4 mg PRN Q6HRS PRN IV Nausea; Start 06/15/16 at 10:00; Stop 06/16/16 at 09:59; Status DC Fentanyl Citrate (Fentanyl 2ml Vial) 25 mcg PRN Q5MIN PRN IV MILD PAIN; Start 06/15/16 at 10:00; Stop 06/16/16 at 09:59; Status DC Fentanyl Citrate (Fentanyl 2ml Vial) 50 mcg PRN Q5MIN PRN IV MODERATE PAIN; Start 06/15/16 at 10:00; Stop 06/16/16 at 09:59; Status DC Morphine Sulfate 1 mg 1 mg PRN Q10MIN PRN IV SEVERE PAIN; Start 06/15/16 at 10: 00; Stop 06/16/16 at 09:59; Status DC Lactated Ringer's (Iv Lactated Ringers) 1,000 ml @ 30 mls/hr Q24H IV ; Start at 09:47; Stop 06/15/16 at 21:46; Status DC Lidocaine HCl 2 ml 1X PRN PRN ID IV START; Start 06/15/16 at 10:00; Stop at 09:59; Status DC Hydromorphone HCl (Dilaudid) 0.5 mg PRN Q10MIN PRN IV SEV PAIN,Second choice; Start 06/15/16 at 10:00; Stop 06/16/16 at 09:59; Status DC Prochlorperazine Edisylate (Compazine) 5 mg PACU PRN PRN IV NAUSEA; Start at 10:00; Stop 06/16/16 at 09:59; Status DC Phytonadione (Vitamin K) 2 mg 1X ONCE SQ Last administered on 06/15/16 11:21; Start 06/15/16 at 09:45; Stop 06/15/16 at 09:57; Status DC Dexamethasone Sodium Phosphate (Decadron) 20 mg STK-MED ONCE .ROUTE ; Start 06/15 at 10:26; Stop 06/15/16 at 10:27; Status DC Ondansetron HCl (Zofran) 4 mg STK-MED ONCE .ROUTE ; Start 06/15/16 at 10:26; Stop 06/15/16 at 10:27; Status DC Rocuronium [place] 50 mg 50 mg STK-MED ONCE .ROUTE ; Start 06/15/16 at 10:26; Stop 06/15/16 at 10:27; Status DC Propofol (Diprivan) 20 ml @ As Directed STK-MED ONCE IV ; Start 06/15/16 at 10:26 ; Stop 06/15/16 at 10:27; Status DC Lidocaine HCl 100 mg STK-MED ONCE .ROUTE ; Start 06/15/16 at 10:26; Stop 06/15/16 at 10:27; Status DC Fentanyl Citrate (Fentanyl 2ml Vial) 100 mcg STK-MED ONCE .ROUTE ; Start at 10:26; Stop 06/15/16 at 10:27; Status DC Thrombin 20,000 unit STK-MED ONCE TP Last administered on 06/15/16 12:41; Start 06/15/16 at 10:47; Stop 06/15/16 at 10:48; Status DC Gelatin (Gelfoam Size 100) 1 each STK-MED ONCE .ROUTE Last administered on 06/15 12:41; Start 06/15/16 at 10:48; Stop 06/15/16 at 10:49; Status DC Bupivacaine HCl/ Epinephrine Bitart (Sensorcaine-Epi 0.25%-1:112830 Mpf) 30 ml STK-MED ONCE .ROUTE Last administered on 06/15/16 12:41; Start 06/15/16 at 10:48 ; Stop 06/15/16 at 10:49; Status DC Cellulose 1 each STK-MED ONCE .ROUTE ; Start 06/15/16 at 10:49; Stop 06/15/16 at 10:50; Status DC Potassium Chloride 20 meq 20 meq 1X ONCE PO Last administered on 06/15/16 11: 21; Start 06/15/16 at 11:15; Stop 06/15/16 at 11:16; Status DC Cefazolin Sodium/ Dextrose (Ancef 2gm Premix) 50 ml @ 100 mls/hr 1X PREOP PRN IV PER PROTOCOL Last administered on 06/15/16 12:56; Start 06/16/16 at 06:00; Stop 06/16/16 at 18:00; Status DC Ephedrine Sulfate 50 mg STK-MED ONCE IV ; Start 06/15/16 at 13:04; Stop 06/15/16 at 13:05; Status DC Glycopyrrolate (Robinul) 1 mg STK-MED ONCE .ROUTE ; Start 06/15/16 at 13:39; Stop 06/15/16 at 13:40; Status DC Neostigmine Methylsulfate 5 mg STK-MED ONCE .ROUTE ; Start 06/15/16 at 13:39; Stop 06/15/16 at 13:40; Status DC Fentanyl Citrate (Fentanyl 2ml Vial) 100 mcg STK-MED ONCE .ROUTE ; Start at 13:55; Stop 06/15/16 at 13:56; Status DC Sevoflurane (Ultane) 30 ml STK-MED ONCE IH ; Start 06/15/16 at 13:55; Stop at 13:56; Status DC Sevoflurane (Ultane) 60 ml STK-MED ONCE IH ; Start 06/15/16 at 13:55; Stop at 13:56; Status DC Warfarin Sodium (Coumadin - No Dose Today) 1 each 1X WARF ONCE MC Last administered on 06/15/16 16:00; Start 06/15/16 at 16:00; Stop 06/15/16 at 16:01; Status DC Cefazolin Sodium/ Dextrose (Ancef 2gm Premix) 2 gm STK-MED ONCE IV ; Start at 13:00; Stop 06/16/16 at 08:05; Status DC Famotidine (Pepcid) 20 mg BID IVP ; Start 06/16/16 at 21:00; Stop 06/16/16 at 21 :00; Status DC Famotidine (Pepcid) 20 mg BID PO Last administered on 06/27/16 09:33; Start at 13:00 Warfarin Sodium (Coumadin) 5 mg 1X WARF ONCE PO Last administered on 18:15; Start 06/17/16 at 16:00; Stop 06/17/16 at 16:01; Status DC Warfarin Sodium (Coumadin) 7.5 mg 1X WARF ONCE PO Last administered on 16:25; Start 06/18/16 at 16:00; Stop 06/18/16 at 16:01; Status DC Ondansetron HCl (Zofran) 4 mg PRN Q6HRS PRN IV NAUSEA/VOMITING Last administered on 06/24/16 13:23; Start 06/19/16 at 03:00 Morphine Sulfate 2 mg PRN Q2HR PRN IV PAIN Last administered on 06/20/16 08:06 ; Start 06/19/16 at 03:00; Stop 06/20/16 at 10:14; Status DC Warfarin Sodium 7.5 mg 7.5 mg 1X WARF ONCE PO ; Start 06/19/16 at 16:00; Stop 06/19/16 at 16:01; Status DC Amino Acids/ Glycerin/ Electrolytes (Procalamine) 1,000 ml @ 75 mls/hr [id number] IV Last administered on 06/23/16 01:06; Start 06/19/16 at 16:15; Stop at 10:24; Status DC Fentanyl Citrate (Fentanyl 2ml Vial) 50 mcg Q6HRS PRN IM BREAKTHROUGH PAIN; Start 06/20/16 at 10:15; Stop 06/20/16 at 11:08; Status DC Fentanyl Citrate (Fentanyl 2ml Vial) 50 mcg PRN Q6HRS PRN IV BREAKTHROUGH PAIN Last administered on 06/22/16 22:11; Start 06/20/16 at 11:15 Warfarin Sodium (Coumadin) 7.5 mg 1X WARF ONCE PO ; Start 06/20/16 at 16:00; Stop 06/20/16 at 16:01; Status DC Enoxaparin Sodium (Lovenox Per Pharmacy Treatment Dosing) 1 each PRN DAILY PRN MC SEE COMMENTS; Start 06/21/16 at 12:30; Stop 06/22/16 at 12:29; Status DC Enoxaparin Sodium 60 mg 60 mg Q12HR SQ Last administered on 06/22/16 21:13; Start 06/21/16 at 13:00; Stop 06/23/16 at 10:24; Status DC Bacitracin/Sodium Chloride (Iv Sodium Chloride 0.9% 1000ml Bag) 1,000 ml @ 1, 000 mls/hr 1X PERIOP ONCE IRR ; Start 06/22/16 at 09:00; Stop 06/22/16 at 09:59 ; Status DC Ondansetron HCl (Zofran) 4 mg PRN Q6HRS PRN IV Nausea; Start 06/22/16 at 09:00 ; Stop 06/22/16 at 18:00; Status DC Fentanyl Citrate (Fentanyl 2ml Vial) 25 mcg PRN Q5MIN PRN IV MILD PAIN; Start 06/22/16 at 09:00; Stop 06/22/16 at 18:00; Status DC Fentanyl Citrate (Fentanyl 2ml Vial) 50 mcg PRN Q5MIN PRN IV MODERATE PAIN Last administered on 06/22/16 17:20; Start 06/22/16 at 09:00; Stop 06/22/16 at 18:00; Status DC Morphine Sulfate 1 mg 1 mg PRN Q10MIN PRN IV SEVERE PAIN; Start 06/22/16 at 09: 00; Stop 06/22/16 at 18:00; Status DC Lactated Ringer's (Iv Lactated Ringers) 1,000 ml @ 30 mls/hr Q24H IV Last administered on 06/22/16 10:55; Start 06/22/16 at 08:52; Stop 06/22/16 at 20:51 ; Status DC Lidocaine HCl 2 ml 1X PRN PRN ID IV START; Start 06/22/16 at 09:00; Stop at 18:00; Status DC Hydromorphone HCl (Dilaudid) 0.5 mg PRN Q10MIN PRN IV SEV PAIN,Second choice; Start 06/22/16 at 09:00; Stop 06/22/16 at 18:00; Status DC Prochlorperazine Edisylate (Compazine) 5 mg PACU PRN PRN IV NAUSEA; Start 06/22 at 09:00; Stop 06/22/16 at 18:00; Status DC Bupivacaine HCl/ Epinephrine Bitart (Sensorcaine-Epi 0.25%-1:451715 Mpf) 30 ml STK-MED ONCE .ROUTE Last administered on 06/22/16 12:21; Start 06/22/16 at 09: 22; Stop 06/22/16 at 09:23; Status DC Cellulose 1 each STK-MED ONCE .ROUTE ; Start 06/22/16 at 09:22; Stop 06/22/16 at 09:23; Status DC Thrombin 20,000 unit STK-MED ONCE TP Last administered on 06/22/16 12:21; Start 06/22/16 at 09:22; Stop 06/22/16 at 09:23; Status DC Gelatin 1 each 1 each STK-MED ONCE .ROUTE Last administered on 06/22/16 12:21 ; Start 06/22/16 at 09:23; Stop 06/22/16 at 09:24; Status DC Propofol (Diprivan) 20 ml @ As Directed STK-MED ONCE IV ; Start 06/22/16 at 09: 57; Stop 06/22/16 at 09:58; Status DC Lidocaine HCl 100 mg STK-MED ONCE .ROUTE ; Start 06/22/16 at 09:57; Stop at 09:58; Status DC Rocuronium [place] (Zemuron) 50 mg STK-MED ONCE .ROUTE ; Start 06/22/16 at 09:57 ; Stop 06/22/16 at 09:58; Status DC Ondansetron HCl (Zofran) 4 mg STK-MED ONCE .ROUTE ; Start 06/22/16 at 09:58; Stop 06/22/16 at 09:59; Status DC Dexamethasone Sodium Phosphate (Decadron) 20 mg STK-MED ONCE .ROUTE ; Start at 09:58; Stop 06/22/16 at 09:59; Status DC Fentanyl Citrate 100 mcg 100 mcg STK-MED ONCE .ROUTE ; Start 06/22/16 at 09:59; Stop 06/22/16 at 10:00; Status DC Cefazolin Sodium/ Dextrose (Ancef 2gm Premix) 50 ml @ 100 mls/hr 1X PREOP IV Last administered on 06/22/16 12:37; Start 06/22/16 at 10:15 Metoprolol Tartrate (Lopressor) 5 mg STK-MED ONCE .ROUTE ; Start 06/22/16 at 11: 05; Stop 06/22/16 at 11:06; Status DC Metoprolol Tartrate (Lopressor) 5 mg 1X ONCE IVP Last administered on 11:12; Start 06/22/16 at 11:15; Stop 06/22/16 at 11:16; Status DC Ephedrine Sulfate 50 mg STK-MED ONCE IV ; Start 06/22/16 at 12:11; Stop at 12:12; Status DC Glycopyrrolate (Robinul) 1 mg STK-MED ONCE .ROUTE ; Start 06/22/16 at 12:40; Stop 06/22/16 at 12:41; Status DC Neostigmine Methylsulfate 5 mg STK-MED ONCE .ROUTE ; Start 06/22/16 at 12:40; Stop 06/22/16 at 12:41; Status DC Sevoflurane 60 ml 60 ml STK-MED ONCE IH ; Start 06/22/16 at 13:05; Stop at 13:06; Status DC Cefazolin Sodium/ Sodium Chloride (Ancef/Iv Sodium Chloride 0.9% 50ml) 50 ml @ 100 mls/hr Q8HRS IV Last administered on 06/27/16 06:23; Start 06/22/16 at 23: 00 Warfarin Sodium (Coumadin) 7.5 mg 1X WARF ONCE PO Last administered on 17:06; Start 06/23/16 at 16:00; Stop 06/23/16 at 16:01; Status DC Enoxaparin Sodium (Lovenox 60mg Syringe) 60 mg Q12HR SQ Last administered on 09:33; Start 06/24/16 at 21:00 Warfarin Sodium (Coumadin) 7.5 mg 1X WARF ONCE PO Last administered on 15:35; Start 06/24/16 at 16:00; Stop 06/24/16 at 16:01; Status DC Warfarin Sodium (Coumadin) 5 mg 1X WARF ONCE PO Last administered on 16:49; Start 06/25/16 at 16:00; Stop 06/25/16 at 16:01; Status DC Alprazolam (Xanax) 0.25 mg PRN Q6HRS PRN PO ANXIETY / AGITATION; Start at 08:00 Potassium Chloride (Klor-Con) 20 meq BID PO Last administered on 06/26/16 20: 06; Start 06/26/16 at 10:15; Stop 06/26/16 at 23:55; Status DC Warfarin Sodium 6 mg 6 mg 1X WARF ONCE PO Last administered on 06/26/16 16:19 ; Start 06/26/16 at 16:00; Stop 06/26/16 at 16:01; Status DC Sodium Chloride (Iv Sodium Chloride 0.9% 1000ml Bag) 1,000 ml @ 75 mls/hr 1X ONCE IV Last administered on 06/27/16 10:26; Start 06/27/16 at 10:15; Stop at 23:34 Active Scripts Active Reported Coumadin (Warfarin Sodium) 5 Mg Tablet 1 Tab PO DAILY Metoprolol Succinate ( Xl ) (Metoprolol Succinate) 25 Mg Tab.er.24h 25 Mg PO DAILY Vitals/I & O Vital Sign - Last 24 Hours 06/26/16 06/26/16 06/26/16 06/26/16 12:04 15:00 19:46 20:00 Temp 97.7 97.9 97.7 97.9 Pulse 79 81 Resp 18 18 B/P 97/62 97/63 Pulse Ox 97 97 O2 Delivery Room Air Room Air Room Air Room Air 06/26/16 06/26/16 06/26/16 06/27/16 21:43 22:45 23:39 03:00 Temp 97.4 97.1 97.4 97.1 Pulse 75 79 Resp 16 16 18 18 B/P 95/66 101/65 Pulse Ox 95 95 O2 Delivery Room Air Room Air Room Air Room Air 06/27/16 06/27/16 06/27/16 06/27/16 06:24 07:31 07:52 09:34 Temp 98.1 98.1 Pulse 77 77 Resp 16 16 18 B/P 89/55 89/55 Pulse Ox 95 O2 Delivery Room Air Room Air Room Air 06/27/16 11:05 Temp 97.5 97.5 Pulse 79 Resp 18 B/P 83/46 Pulse Ox 96 O2 Delivery Room Air Intake and Output 06/26/16 06/26/16 06/27/16 15:00 23:00 07:00 Intake Total 50 ml 50 ml Output Total 375 ml 175 ml 400 ml Balance -375 ml -125 ml -350 ml CHRISTEL GRIFFITHS III, DO Jun 27, 2016 11:44
[2016-06-27] MEDS ORDERED: ANTI-COAG MONITOR BY PHARMACY. MC PRN (14:30)
[2016-06-27 15:53] VITALS: BP 91/64
[2016-06-27] MEDS ORDERED: WARFARIN 7.5 MG TABLET. PO ONE (16:00)
[2016-06-27 19:12] VITALS: BP 105/72
[2016-06-27 23:20] VITALS: BP 110/70
[2016-06-28] MEDS: ONDANSETRON PF 4 MG/2 ML VIAL. IV PRN (03:05)
[2016-06-28 03:12] VITALS: BP 92/62
[2016-06-28 05:27] LABS: BASO # 0.1 x10^3/uL (0.0-0.2); BASO % 1 % (0-3); EOS % 2 % (0-3); HEMATOCRIT 38.3 % (39.0-53.0); HEMOGLOBIN 12.7 g/dL (13.0-17.5); LYMPH % 13 % (24-48); MEAN CORPUSCULAR HEMOGLOBIN 30 pg (25-35); MEAN CORPUSCULAR HGB CONC 33 g/dL (31-37); MEAN CORPUSCULAR VOLUME 90 fL (79-100); MONO % 9 % (0-9); NEUT % 76 % (31-73); PLATELET COUNT 242 x10^3/uL (140-400); RED BLOOD COUNT 4.24 x10^6/uL (4.30-5.70); RED CELL DISTRIBUTION WIDTH 13.8 % (11.5-14.5); WHITE BLOOD COUNT 7.4 x10^3/uL (4.0-11.0)
[2016-06-28 05:39] LABS: CALCIUM 8.6 mg/dL (8.5-10.1); CREATININE 0.7 mg/dL (0.7-1.3); GFR 119.4; POTASSIUM 4.1 mmol/L (3.5-5.1)
[2016-06-28 05:40] LABS: INR 1.8 (0.8-1.1); PROTHROMBIN TIME PATIENT 19.9 SEC (11.7-14.0)
[2016-06-28] MEDS: CEFAZOLIN SODIUM 1 GM in IV NORMAL SALINE 50ML 50 ML IV SCH ×3 (06:24→22:29)
[2016-06-28 07:00] VITALS: BP 130/92
[2016-06-28] MEDS: METOPROLOL SUCC 24HR ER 25 MG TAB.ER.24H. PO SCH (09:56)
[2016-06-28] MEDS: FAMOTIDINE 20 MG TABLET. PO SCH ×2 (09:57→20:59)
[2016-06-28] MEDS: ENOXAPARIN ** NOTE DOSE ** SYRINGE SQ SCH ×2 (09:59→21:00)
[2016-06-28 11:00] VITALS: BP 100/61
[2016-06-28] MEDS ORDERED: POLYETHYLENE GLYCOL 3350 17 GM PACKET. PO PRN (12:30)
[2016-06-28] MEDS ORDERED: BISACODYL 10 MG SUPP.RECT PR PRN (13:45)
--- NOTE | 2016-06-28 14:48 | PDOC ---
PROGRESS NOTES Chief Complaint Chief Complaint Headaches , B SDH ASSESSMENT AND PLAN: 0. Marfans 1. Acute, nontraumatic bilateral subdural hematomas: s/p bilat nela holes on 06/13, 06/16. 06/23. Dr Soto following 2. Metabolic encephalopathy: improved, almost to baseline. Dr Leiva following 3. Marfan's syndrome; with hx of aortic and mitral valve replacements 4. Chronic anticoag (for AVR): coumadin restarted, subtherapeutic INR. managed by pharm 5. HTN: well controlled on current regimen 6. Dysphagia: resolved. reg diet 7. L eye blindness: chronic 8. Dispo: SNU when therapeutic on coumadin, no recurrent bleed. d/w pt and brother in detail History of Present Illness History of Present Illness Pt seen and examined VSS More alert today Vitals Vitals Vital Signs Date Time Temp Pulse Resp B/P Pulse Ox O2 Delivery O2 Flow Rate FiO2 06/28/16 11:00 97.9 96 16 100/61 96 Room Air 97.9 Physical Exam Physical Exam bilat temporal nela holes covered with gauze General: Alert, Oriented X3, Cooperative, No acute distress Heart: Regular rate, Normal S1 Lungs: Clear, Other Abdomen: Normal bowel sounds, Soft, No tenderness Extremities: No clubbing, No edema Skin: No breakdown Labs LABS Laboratory Tests Test 06/28/16 04:50 White Blood Count 7.4x10^3/uL (4.0-11.0) Red Blood Count 4.24x10^6/uL (4.30-5.70) Hemoglobin 12.7g/dL (13.0-17.5) Hematocrit 38.3% (39.0-53.0) Mean Corpuscular Volume 90fL (79-100) Mean Corpuscular Hemoglobin 30pg (25-35) Mean Corpuscular Hemoglobin Concent 33g/dL (31-37) Red Cell Distribution Width 13.8% (11.5-14.5) Platelet Count 242x10^3/uL (140-400) Neutrophils (%) (Auto) 76% (31-73) Lymphocytes (%) (Auto) 13% (24-48) Monocytes (%) (Auto) 9% (0-9) Eosinophils (%) (Auto) 2% (0-3) Basophils (%) (Auto) 1% (0-3) Neutrophils # (Auto) 5.6x10^3uL (1.8-7.7) Lymphocytes # (Auto) 1.0x10^3/uL (1.0-4.8) Monocytes # (Auto) 0.6x10^3/uL (0.0-1.1) Eosinophils # (Auto) 0.1x10^3/uL (0.0-0.7) Basophils # (Auto) 0.1x10^3/uL (0.0-0.2) Prothrombin Time 19.9SEC (11.7-14.0) Prothromb Time International Ratio 1.8 (0.8-1.1) Sodium Level 139mmol/L (136-145) Potassium Level 4.1mmol/L (3.5-5.1) Chloride Level 106mmol/L (98-107) Carbon Dioxide Level 26mmol/L (21-32) Anion Gap 7 (6-14) Blood Urea Nitrogen 14mg/dL (8-26) Creatinine 0.7mg/dL (0.7-1.3) Estimated GFR (Cockcroft-Gault) 119.4 Glucose Level 92mg/dL (70-99) Calcium Level 8.6mg/dL (8.5-10.1) Review of Systems Review of Systems co constipation co weakness Assessment and Plan Assessmemt and Plan Problems Medical Problems: (1) Subdural hematoma Status: Acute (2) Supratherapeutic INR Status: Acute 0. Marfans 1. Acute, nontraumatic bilateral subdural hematomas: s/p bilat nela holes on 06/13, 06/16. 06/23. Dr Soto following 2. Metabolic encephalopathy: improved, almost to baseline. Dr Leiva following 3. Marfan's syndrome; with hx of aortic and mitral valve replacements 4. Chronic anticoag (for AVR): coumadin restarted, subtherapeutic INR. managed by pharm 5. HTN: well controlled on current regimen 6. Dysphagia: resolved. reg diet 7. L eye blindness: chronic 8. Dispo: SNU when therapeutic on coumadin, no recurrent bleed. d/w pt and brother in detail Plan Wound care MAR ? Add Myralax Home meds PTOT Problems: Comment Review of Relevant I have reviewed the following items jordy (where applicable) has been applied. Labs Laboratory Tests Test 06/27/16 06:50 06/28/16 04:50 White Blood Count 5.4x10^3/uL (4.0-11.0) 7.4x10^3/uL (4.0-11.0) Red Blood Count 4.17x10^6/uL (4.30-5.70) 4.24x10^6/uL (4.30-5.70) Hemoglobin 12.5g/dL (13.0-17.5) 12.7g/dL (13.0-17.5) Hematocrit 37.6% (39.0-53.0) 38.3% (39.0-53.0) Mean Corpuscular Volume 90fL (79-100) 90fL (79-100) Mean Corpuscular Hemoglobin 30pg (25-35) 30pg (25-35) Mean Corpuscular Hemoglobin Concent 33g/dL (31-37) 33g/dL (31-37) Red Cell Distribution Width 13.6% (11.5-14.5) 13.8% (11.5-14.5) Platelet Count 239x10^3/uL (140-400) 242x10^3/uL (140-400) Neutrophils (%) (Auto) 54% (31-73) 76% (31-73) Lymphocytes (%) (Auto) 26% (24-48) 13% (24-48) Monocytes (%) (Auto) 13% (0-9) 9% (0-9) Eosinophils (%) (Auto) 6% (0-3) 2% (0-3) Basophils (%) (Auto) 2% (0-3) 1% (0-3) Neutrophils # (Auto) 2.9x10^3uL (1.8-7.7) 5.6x10^3uL (1.8-7.7) Lymphocytes # (Auto) 1.4x10^3/uL (1.0-4.8) 1.0x10^3/uL (1.0-4.8) Monocytes # (Auto) 0.7x10^3/uL (0.0-1.1) 0.6x10^3/uL (0.0-1.1) Eosinophils # (Auto) 0.3x10^3/uL (0.0-0.7) 0.1x10^3/uL (0.0-0.7) Basophils # (Auto) 0.1x10^3/uL (0.0-0.2) 0.1x10^3/uL (0.0-0.2) Prothrombin Time 18.7SEC (11.7-14.0) 19.9SEC (11.7-14.0) Prothromb Time International Ratio 1.7 (0.8-1.1) 1.8 (0.8-1.1) Sodium Level 145mmol/L (136-145) 139mmol/L (136-145) Potassium Level 4.5mmol/L (3.5-5.1) 4.1mmol/L (3.5-5.1) Chloride Level 110mmol/L (98-107) 106mmol/L (98-107) Carbon Dioxide Level 29mmol/L (21-32) 26mmol/L (21-32) Anion Gap 6 (6-14) 7 (6-14) Blood Urea Nitrogen 12mg/dL (8-26) 14mg/dL (8-26) Creatinine 0.8mg/dL (0.7-1.3) 0.7mg/dL (0.7-1.3) Estimated GFR (Cockcroft-Gault) 102.3 119.4 Glucose Level 83mg/dL (70-99) 92mg/dL (70-99) Calcium Level 8.9mg/dL (8.5-10.1) 8.6mg/dL (8.5-10.1) Laboratory Tests Test 06/28/16 04:50 White Blood Count 7.4x10^3/uL (4.0-11.0) Red Blood Count 4.24x10^6/uL (4.30-5.70) Hemoglobin 12.7g/dL (13.0-17.5) Hematocrit 38.3% (39.0-53.0) Mean Corpuscular Volume 90fL (79-100) Mean Corpuscular Hemoglobin 30pg (25-35) Mean Corpuscular Hemoglobin Concent 33g/dL (31-37) Red Cell Distribution Width 13.8% (11.5-14.5) Platelet Count 242x10^3/uL (140-400) Neutrophils (%) (Auto) 76% (31-73) Lymphocytes (%) (Auto) 13% (24-48) Monocytes (%) (Auto) 9% (0-9) Eosinophils (%) (Auto) 2% (0-3) Basophils (%) (Auto) 1% (0-3) Neutrophils # (Auto) 5.6x10^3uL (1.8-7.7) Lymphocytes # (Auto) 1.0x10^3/uL (1.0-4.8) Monocytes # (Auto) 0.6x10^3/uL (0.0-1.1) Eosinophils # (Auto) 0.1x10^3/uL (0.0-0.7) Basophils # (Auto) 0.1x10^3/uL (0.0-0.2) Prothrombin Time 19.9SEC (11.7-14.0) Prothromb Time International Ratio 1.8 (0.8-1.1) Sodium Level 139mmol/L (136-145) Potassium Level 4.1mmol/L (3.5-5.1) Chloride Level 106mmol/L (98-107) Carbon Dioxide Level 26mmol/L (21-32) Anion Gap 7 (6-14) Blood Urea Nitrogen 14mg/dL (8-26) Creatinine 0.7mg/dL (0.7-1.3) Estimated GFR (Cockcroft-Gault) 119.4 Glucose Level 92mg/dL (70-99) Calcium Level 8.6mg/dL (8.5-10.1) Microbiology 06/13/16 Urine Culture - Final, Complete 06/13/16 Urine Culture Result 1 (GLENN) - Final, Complete Medications Current Medications Sodium Chloride (Iv Sodium Chloride 0.9% 1000ml Bag) 1,000 ml @ 100 mls/hr 1X ONCE IV Last administered on 06/13/16t 13:45; Start 06/13/16 at 13:45; Stop at 23:44; Status DC Phytonadione (Mephyton) 10 mg 1X ONCE PO Last administered on 06/13/16 15:03; Start 06/13/16 at 15:00; Stop 06/13/16 at 15:01; Status DC Ondansetron HCl 4 mg 4 mg PRN Q8HRS PRN IV NAUSEA/VOMITING; Start 06/13/16 at 16 :15; Stop 06/14/16 at 16:14; Status DC Sodium Chloride (Iv Sodium Chloride 0.9% 1000ml Bag) 1,000 ml @ 100 mls/hr Q10H IV Last administered on 06/14/16 05:49; Start 06/13/16 at 16:10; Stop at 13:20; Status DC Morphine Sulfate 2 mg 1X ONCE IV Last administered on 06/13/16 18:08; Start at 18:30; Stop 06/13/16 at 18:31; Status DC Oxycodone/ Acetaminophen (Percocet 5/325) 1 tab PRN Q4HRS PRN PO PAIN Last administered on 06/27/16 23:54; Start 06/13/16 at 18:00 Oxycodone/ Acetaminophen (Percocet 5/325) 2 tab PRN Q4HRS PRN PO PAIN Last administered on 06/26/16 21:43; Start 06/13/16 at 18:00 Metoprolol Succinate (Toprol Xl) 25 mg DAILY PO Last administered on 06/28/16 09:56; Start 06/14/16 at 09:00 Lorazepam 2 mg 2 mg PRN Q4HRS PRN IV ANXIETY / AGITATION Last administered on 14:33; Start 06/13/16 at 19:45 Levetiracetam 500 mg/Sodium Chloride 105 ml @ 400 mls/hr PRN Q12HRS PRN IV SEIZURES; Start 06/13/16 at 19:45 Potassium Chloride/Sodium Chloride (KCl 20 Meq-0.45% Nacl) 1,000 ml @ 100 mls/ hr Q10H IV Last administered on 06/17/16 03:24; Start 06/14/16 at 13:30; Stop 06/17/16 at 12:24; Status DC Warfarin Sodium (Coumadin Per Pharmacy) 1 each PRN DAILY PRN MC SEE COMMENTS Last administered on 06/28/16t 13:56; Start 06/14/16 at 16:00 Warfarin Sodium 2.5 mg 2.5 mg 1X WARF ONCE PO ; Start 06/14/16 at 17:00; Stop at 17:01; Status Cancel Bacitracin/Sodium Chloride (Iv Sodium Chloride 0.9% 1000ml Bag) 1,000 ml @ 1, 000 mls/hr 1X PERIOP ONCE IRR Last administered on 06/15/16t 12:41; Start at 10:00; Stop 06/15/16 at 10:59; Status DC Ondansetron HCl (Zofran) 4 mg PRN Q6HRS PRN IV Nausea; Start 06/15/16 at 10:00; Stop 06/16/16 at 09:59; Status DC Fentanyl Citrate (Fentanyl 2ml Vial) 25 mcg PRN Q5MIN PRN IV MILD PAIN; Start 06/15/16 at 10:00; Stop 06/16/16 at 09:59; Status DC Fentanyl Citrate (Fentanyl 2ml Vial) 50 mcg PRN Q5MIN PRN IV MODERATE PAIN; Start 06/15/16 at 10:00; Stop 06/16/16 at 09:59; Status DC Morphine Sulfate 1 mg 1 mg PRN Q10MIN PRN IV SEVERE PAIN; Start 06/15/16 at 10: 00; Stop 06/16/16 at 09:59; Status DC Lactated Ringer's (Iv Lactated Ringers) 1,000 ml @ 30 mls/hr Q24H IV ; Start at 09:47; Stop 06/15/16 at 21:46; Status DC Lidocaine HCl 2 ml 1X PRN PRN ID IV START; Start 06/15/16 at 10:00; Stop at 09:59; Status DC Hydromorphone HCl (Dilaudid) 0.5 mg PRN Q10MIN PRN IV SEV PAIN,Second choice; Start 06/15/16 at 10:00; Stop 06/16/16 at 09:59; Status DC Prochlorperazine Edisylate (Compazine) 5 mg PACU PRN PRN IV NAUSEA; Start at 10:00; Stop 06/16/16 at 09:59; Status DC Phytonadione (Vitamin K) 2 mg 1X ONCE SQ Last administered on 06/15/16 11:21; Start 06/15/16 at 09:45; Stop 06/15/16 at 09:57; Status DC Dexamethasone Sodium Phosphate (Decadron) 20 mg STK-MED ONCE .ROUTE ; Start 06/15 at 10:26; Stop 06/15/16 at 10:27; Status DC Ondansetron HCl (Zofran) 4 mg STK-MED ONCE .ROUTE ; Start 06/15/16 at 10:26; Stop 06/15/16 at 10:27; Status DC Rocuronium Waban 50 mg 50 mg STK-MED ONCE .ROUTE ; Start 06/15/16 at 10:26; Stop 06/15/16 at 10:27; Status DC Propofol (Diprivan) 20 ml @ As Directed STK-MED ONCE IV ; Start 06/15/16 at 10:26 ; Stop 06/15/16 at 10:27; Status DC Lidocaine HCl 100 mg STK-MED ONCE .ROUTE ; Start 06/15/16 at 10:26; Stop 06/15/16 at 10:27; Status DC Fentanyl Citrate (Fentanyl 2ml Vial) 100 mcg STK-MED ONCE .ROUTE ; Start at 10:26; Stop 06/15/16 at 10:27; Status DC Thrombin 20,000 unit STK-MED ONCE TP Last administered on 06/15/16 12:41; Start 06/15/16 at 10:47; Stop 06/15/16 at 10:48; Status DC Gelatin (Gelfoam Size 100) 1 each STK-MED ONCE .ROUTE Last administered on 06/15 12:41; Start 06/15/16 at 10:48; Stop 06/15/16 at 10:49; Status DC Bupivacaine HCl/ Epinephrine Bitart (Sensorcaine-Epi 0.25%-1:269663 Mpf) 30 ml STK-MED ONCE .ROUTE Last administered on 06/15/16 12:41; Start 06/15/16 at 10:48 ; Stop 06/15/16 at 10:49; Status DC Cellulose 1 each STK-MED ONCE .ROUTE ; Start 06/15/16 at 10:49; Stop 06/15/16 at 10:50; Status DC Potassium Chloride 20 meq 20 meq 1X ONCE PO Last administered on 06/15/16 11: 21; Start 06/15/16 at 11:15; Stop 06/15/16 at 11:16; Status DC Cefazolin Sodium/ Dextrose (Ancef 2gm Premix) 50 ml @ 100 mls/hr 1X PREOP PRN IV PER PROTOCOL Last administered on 06/15/16 12:56; Start 06/16/16 at 06:00; Stop 06/16/16 at 18:00; Status DC Ephedrine Sulfate 50 mg STK-MED ONCE IV ; Start 06/15/16 at 13:04; Stop 06/15/16 at 13:05; Status DC Glycopyrrolate (Robinul) 1 mg STK-MED ONCE .ROUTE ; Start 06/15/16 at 13:39; Stop 06/15/16 at 13:40; Status DC Neostigmine Methylsulfate 5 mg STK-MED ONCE .ROUTE ; Start 06/15/16 at 13:39; Stop 06/15/16 at 13:40; Status DC Fentanyl Citrate (Fentanyl 2ml Vial) 100 mcg STK-MED ONCE .ROUTE ; Start at 13:55; Stop 06/15/16 at 13:56; Status DC Sevoflurane (Ultane) 30 ml STK-MED ONCE IH ; Start 06/15/16 at 13:55; Stop at 13:56; Status DC Sevoflurane (Ultane) 60 ml STK-MED ONCE IH ; Start 06/15/16 at 13:55; Stop at 13:56; Status DC Warfarin Sodium (Coumadin - No Dose Today) 1 each 1X WARF ONCE MC Last administered on 06/15/16 16:00; Start 06/15/16 at 16:00; Stop 06/15/16 at 16:01; Status DC Cefazolin Sodium/ Dextrose (Ancef 2gm Premix) 2 gm STK-MED ONCE IV ; Start at 13:00; Stop 06/16/16 at 08:05; Status DC Famotidine (Pepcid) 20 mg BID IVP ; Start 06/16/16 at 21:00; Stop 06/16/16 at 21 :00; Status DC Famotidine (Pepcid) 20 mg BID PO Last administered on 06/28/16 09:57; Start at 13:00 Warfarin Sodium (Coumadin) 5 mg 1X WARF ONCE PO Last administered on 18:15; Start 06/17/16 at 16:00; Stop 06/17/16 at 16:01; Status DC Warfarin Sodium (Coumadin) 7.5 mg 1X WARF ONCE PO Last administered on 16:25; Start 06/18/16 at 16:00; Stop 06/18/16 at 16:01; Status DC Ondansetron HCl (Zofran) 4 mg PRN Q6HRS PRN IV NAUSEA/VOMITING Last administered on 06/28/16 03:05; Start 06/19/16 at 03:00 Morphine Sulfate 2 mg PRN Q2HR PRN IV PAIN Last administered on 06/20/16 08:06 ; Start 06/19/16 at 03:00; Stop 06/20/16 at 10:14; Status DC Warfarin Sodium 7.5 mg 7.5 mg 1X WARF ONCE PO ; Start 06/19/16 at 16:00; Stop 06/19/16 at 16:01; Status DC Amino Acids/ Glycerin/ Electrolytes (Procalamine) 1,000 ml @ 75 mls/hr [id number] IV Last administered on 06/23/16 01:06; Start 06/19/16 at 16:15; Stop at 10:24; Status DC Fentanyl Citrate (Fentanyl 2ml Vial) 50 mcg Q6HRS PRN IM BREAKTHROUGH PAIN; Start 06/20/16 at 10:15; Stop 06/20/16 at 11:08; Status DC Fentanyl Citrate (Fentanyl 2ml Vial) 50 mcg PRN Q6HRS PRN IV BREAKTHROUGH PAIN Last administered on 06/22/16 22:11; Start 06/20/16 at 11:15 Warfarin Sodium (Coumadin) 7.5 mg 1X WARF ONCE PO ; Start 06/20/16 at 16:00; Stop 06/20/16 at 16:01; Status DC Enoxaparin Sodium (Lovenox Per Pharmacy Treatment Dosing) 1 each PRN DAILY PRN MC SEE COMMENTS; Start 06/21/16 at 12:30; Stop 06/22/16 at 12:29; Status DC Enoxaparin Sodium 60 mg 60 mg Q12HR SQ Last administered on 06/22/16 21:13; Start 06/21/16 at 13:00; Stop 06/23/16 at 10:24; Status DC Bacitracin/Sodium Chloride (Iv Sodium Chloride 0.9% 1000ml Bag) 1,000 ml @ 1, 000 mls/hr 1X PERIOP ONCE IRR ; Start 06/22/16 at 09:00; Stop 06/22/16 at 09:59 ; Status DC Ondansetron HCl (Zofran) 4 mg PRN Q6HRS PRN IV Nausea; Start 06/22/16 at 09:00 ; Stop 06/22/16 at 18:00; Status DC Fentanyl Citrate (Fentanyl 2ml Vial) 25 mcg PRN Q5MIN PRN IV MILD PAIN; Start 06/22/16 at 09:00; Stop 06/22/16 at 18:00; Status DC Fentanyl Citrate (Fentanyl 2ml Vial) 50 mcg PRN Q5MIN PRN IV MODERATE PAIN Last administered on 06/22/16 17:20; Start 06/22/16 at 09:00; Stop 06/22/16 at 18:00; Status DC Morphine Sulfate 1 mg 1 mg PRN Q10MIN PRN IV SEVERE PAIN; Start 06/22/16 at 09: 00; Stop 06/22/16 at 18:00; Status DC Lactated Ringer's (Iv Lactated Ringers) 1,000 ml @ 30 mls/hr Q24H IV Last administered on 06/22/16 10:55; Start 06/22/16 at 08:52; Stop 06/22/16 at 20:51 ; Status DC Lidocaine HCl 2 ml 1X PRN PRN ID IV START; Start 06/22/16 at 09:00; Stop at 18:00; Status DC Hydromorphone HCl (Dilaudid) 0.5 mg PRN Q10MIN PRN IV SEV PAIN,Second choice; Start 06/22/16 at 09:00; Stop 06/22/16 at 18:00; Status DC Prochlorperazine Edisylate (Compazine) 5 mg PACU PRN PRN IV NAUSEA; Start 06/22 at 09:00; Stop 06/22/16 at 18:00; Status DC Bupivacaine HCl/ Epinephrine Bitart (Sensorcaine-Epi 0.25%-1:797359 Mpf) 30 ml STK-MED ONCE .ROUTE Last administered on 06/22/16 12:21; Start 06/22/16 at 09: 22; Stop 06/22/16 at 09:23; Status DC Cellulose 1 each STK-MED ONCE .ROUTE ; Start 06/22/16 at 09:22; Stop 06/22/16 at 09:23; Status DC Thrombin 20,000 unit STK-MED ONCE TP Last administered on 06/22/16 12:21; Start 06/22/16 at 09:22; Stop 06/22/16 at 09:23; Status DC Gelatin 1 each 1 each STK-MED ONCE .ROUTE Last administered on 06/22/16 12:21 ; Start 06/22/16 at 09:23; Stop 06/22/16 at 09:24; Status DC Propofol (Diprivan) 20 ml @ As Directed STK-MED ONCE IV ; Start 06/22/16 at 09: 57; Stop 06/22/16 at 09:58; Status DC Lidocaine HCl 100 mg STK-MED ONCE .ROUTE ; Start 06/22/16 at 09:57; Stop at 09:58; Status DC Rocuronium Waban (Zemuron) 50 mg STK-MED ONCE .ROUTE ; Start 06/22/16 at 09:57 ; Stop 06/22/16 at 09:58; Status DC Ondansetron HCl (Zofran) 4 mg STK-MED ONCE .ROUTE ; Start 06/22/16 at 09:58; Stop 06/22/16 at 09:59; Status DC Dexamethasone Sodium Phosphate (Decadron) 20 mg STK-MED ONCE .ROUTE ; Start at 09:58; Stop 06/22/16 at 09:59; Status DC Fentanyl Citrate 100 mcg 100 mcg STK-MED ONCE .ROUTE ; Start 06/22/16 at 09:59; Stop 06/22/16 at 10:00; Status DC Cefazolin Sodium/ Dextrose (Ancef 2gm Premix) 50 ml @ 100 mls/hr 1X PREOP IV Last administered on 06/22/16 12:37; Start 06/22/16 at 10:15; Stop 06/28/16 at 12:06; Status DC Metoprolol Tartrate (Lopressor) 5 mg STK-MED ONCE .ROUTE ; Start 06/22/16 at 11: 05; Stop 06/22/16 at 11:06; Status DC Metoprolol Tartrate (Lopressor) 5 mg 1X ONCE IVP Last administered on 11:12; Start 06/22/16 at 11:15; Stop 06/22/16 at 11:16; Status DC Ephedrine Sulfate 50 mg STK-MED ONCE IV ; Start 06/22/16 at 12:11; Stop at 12:12; Status DC Glycopyrrolate (Robinul) 1 mg STK-MED ONCE .ROUTE ; Start 06/22/16 at 12:40; Stop 06/22/16 at 12:41; Status DC Neostigmine Methylsulfate 5 mg STK-MED ONCE .ROUTE ; Start 06/22/16 at 12:40; Stop 06/22/16 at 12:41; Status DC Sevoflurane 60 ml 60 ml STK-MED ONCE IH ; Start 06/22/16 at 13:05; Stop at 13:06; Status DC Cefazolin Sodium/ Sodium Chloride (Ancef/Iv Sodium Chloride 0.9% 50ml) 50 ml @ 100 mls/hr Q8HRS IV Last administered on 06/28/16 13:49; Start 06/22/16 at 23: 00 Warfarin Sodium (Coumadin) 7.5 mg 1X WARF ONCE PO Last administered on 17:06; Start 06/23/16 at 16:00; Stop 06/23/16 at 16:01; Status DC Enoxaparin Sodium (Lovenox 60mg Syringe) 60 mg Q12HR SQ Last administered on 09:59; Start 06/24/16 at 21:00 Warfarin Sodium (Coumadin) 7.5 mg 1X WARF ONCE PO Last administered on 15:35; Start 06/24/16 at 16:00; Stop 06/24/16 at 16:01; Status DC Warfarin Sodium (Coumadin) 5 mg 1X WARF ONCE PO Last administered on 16:49; Start 06/25/16 at 16:00; Stop 06/25/16 at 16:01; Status DC Alprazolam (Xanax) 0.25 mg PRN Q6HRS PRN PO ANXIETY / AGITATION; Start at 08:00 Potassium Chloride (Klor-Con) 20 meq BID PO Last administered on 06/26/16 20: 06; Start 06/26/16 at 10:15; Stop 06/26/16 at 23:55; Status DC Warfarin Sodium 6 mg 6 mg 1X WARF ONCE PO Last administered on 06/26/16 16:19 ; Start 06/26/16 at 16:00; Stop 06/26/16 at 16:01; Status DC Sodium Chloride (Iv Sodium Chloride 0.9% 1000ml Bag) 1,000 ml @ 75 mls/hr 1X ONCE IV Last administered on 06/27/16 10:26; Start 06/27/16 at 10:15; Stop at 23:34; Status DC Info (Anti-Coagulation Monitoring By Pharmacy) 1 each PRN DAILY PRN MC SEE COMMENTS Last administered on 06/27/16 14:33; Start 06/27/16 at 14:30 Warfarin Sodium (Coumadin) 7.5 mg 1X WARF ONCE PO Last administered on 16:29; Start 06/27/16 at 16:00; Stop 06/27/16 at 16:01; Status DC Polyethylene Glycol (miraLAX PACKET) 17 gm PRN BID PRN PO CONSTIPATION Last administered on 06/28/16 13:49; Start 06/28/16 at 12:30 Bisacodyl (Dulcolax Supp) 10 mg PRN DAILY PRN AL CONSTIPATION Last administered on 06/28/16 14:24; Start 06/28/16 at 13:45 Warfarin Sodium (Coumadin) 7.5 mg 1X WARF ONCE PO ; Start 06/28/16 at 16:00; Stop 06/28/16 at 16:01 Active Scripts Active Reported Coumadin (Warfarin Sodium) 5 Mg Tablet 1 Tab PO DAILY Metoprolol Succinate ( Xl ) (Metoprolol Succinate) 25 Mg Tab.er.24h 25 Mg PO DAILY Vitals/I & O Vital Sign - Last 24 Hours 06/27/16 06/27/16 06/27/1621/17 15:53 19:12 20:00 23:20 Temp 97.7 97.9 98.2 97.7 97.9 98.2 Pulse 78 69 72 Resp 18 B/P 91/64 105/72 110/70 Pulse Ox 96 95 93 O2 Delivery Room Air Room Air Room Air Room Air 06/28/16 06/28/16 06/28/16 06/28/16 03:12 07:00 08:00 09:56 Temp 98.1 98.1 98.1 98.1 Pulse 73 92 92 Resp 18 B/P 92/62 130/92 130/92 Pulse Ox 94 92 O2 Delivery Room Air Room Air Room Air 06/28/16 11:00 Temp 97.9 97.9 Pulse 96 Resp 16 B/P 100/61 Pulse Ox 96 O2 Delivery Room Air CHRISTEL GRIFFITHS III DO Jun 28, 2016 14:48
[2016-06-28 15:00] VITALS: BP 97/65
[2016-06-28] MEDS: POLYETHYLENE GLYCOL 3350 17 GM PACKET. PO SCH (15:00)
[2016-06-28] MEDS ORDERED: WARFARIN 7.5 MG TABLET. PO ONE (16:00)
[2016-06-28 19:10] VITALS: BP 95/89
[2016-06-28] MEDS: OXYCODONE/APAP 5/325 TABLET. PO PRN (22:28)
[2016-06-28 23:05] VITALS: BP 82/52
[2016-06-29] MEDS: ALPRAZOLAM 0.25 MG TABLET PO PRN (00:15)
[2016-06-29 03:03] VITALS: BP 98/72
[2016-06-29 05:44] LABS: BASO # 0.1 x10^3/uL (0.0-0.2); BASO % 1 % (0-3); EOS % 2 % (0-3); HEMATOCRIT 38.1 % (39.0-53.0); HEMOGLOBIN 12.9 g/dL (13.0-17.5); LYMPH # 1.7 x10^3/uL (1.0-4.8); LYMPH % 26 % (24-48); MEAN CORPUSCULAR HEMOGLOBIN 30 pg (25-35); MEAN CORPUSCULAR HGB CONC 34 g/dL (31-37); MEAN CORPUSCULAR VOLUME 88 fL (79-100); MONO % 10 % (0-9); NEUT % 61 % (31-73); PLATELET COUNT 240 x10^3/uL (140-400); RED BLOOD COUNT 4.34 x10^6/uL (4.30-5.70); RED CELL DISTRIBUTION WIDTH 13.7 % (11.5-14.5); WHITE BLOOD COUNT 6.6 x10^3/uL (4.0-11.0)
[2016-06-29] MEDS: CEFAZOLIN SODIUM 1 GM in IV NORMAL SALINE 50ML 50 ML IV SCH (06:32)
[2016-06-29 06:36] LABS: CALCIUM 8.8 mg/dL (8.5-10.1); CREATININE 0.7 mg/dL (0.7-1.3); GFR 119.4; POTASSIUM 3.8 mmol/L (3.5-5.1)
[2016-06-29 07:00] VITALS: BP 85/67
[2016-06-29 07:03] LABS: % BASOS 1 % (0-3); % EOS 2 % (0-5)
[2016-06-29 07:04] LABS: PLT ESTIMATE ADEQUATE (ADEQUATE)
[2016-06-29] MEDS: FAMOTIDINE 20 MG TABLET. PO SCH ×2 (08:51→21:55)
[2016-06-29] MEDS: ENOXAPARIN ** NOTE DOSE ** SYRINGE SQ SCH ×2 (08:52→21:56)
[2016-06-29] MEDS: METOPROLOL SUCC 24HR ER 25 MG TAB.ER.24H. PO SCH (08:52)
[2016-06-29] MEDS: POLYETHYLENE GLYCOL 3350 17 GM PACKET. PO SCH (09:00)
[2016-06-29] MEDS ORDERED: LOPERAMIDE 2 MG CAPSULE PO PRN (10:30)
[2016-06-29 11:00] VITALS: BP 93/58
[2016-06-29] MEDS: LEVETIRACETAM 500 MG TABLET PO SCH ×2 (12:53→21:55)
--- NOTE | 2016-06-29 13:36 | PDOC ---
PROGRESS NOTES Chief Complaint Chief Complaint Headaches , B SDH ASSESSMENT AND PLAN: 0. Marfans 1. Acute, nontraumatic bilateral subdural hematomas: s/p bilat nela holes on 06/13, 06/16. 06/23. Dr Soto following 2. Metabolic encephalopathy: improved, almost to baseline. Dr Leiva following 3. Marfan's syndrome; with hx of aortic and mitral valve replacements 4. Chronic anticoag (for AVR): coumadin restarted, subtherapeutic INR. managed by pharm 5. HTN: well controlled on current regimen 6. Dysphagia: resolved. reg diet 7. L eye blindness: chronic 8. Dispo: [facility] when therapeutic on coumadin, no recurrent bleed. d/w pt and brother in detail History of Present Illness History of Present Illness Pt seen and examined NO medical issues HAd bilateral nela holes Restarted on coumadin for his heart valve from marfan's INR goal 2.5-3.5 per other notes Pt lives in basement, SP NO rehab resources though needed PLAN Keep until wed or as dw case Dw SW dc iV keppra - shift to PO Dc IV cefazolin - soft stools, completed course, no sign of ongoing infection Dc miralax - soft stools Vitals Vitals Vital Signs Date Time Temp Pulse Resp B/P Pulse Ox O2 Delivery O2 Flow Rate FiO2 06/29/16 11:00 98.1 68 18 93/58 94 Room Air 98.1 Physical Exam Physical Exam bilat temporal nela holes covered with gauze General: Alert, Oriented X3, Cooperative, No acute distress Heart: Regular rate, Normal S1 Lungs: Clear, Other Abdomen: Normal bowel sounds, Soft, No tenderness Extremities: No clubbing, No edema Skin: No breakdown Labs LABS Laboratory Tests Test 06/29/16 05:20 White Blood Count 6.6x10^3/uL (4.0-11.0) Red Blood Count 4.34x10^6/uL (4.30-5.70) Hemoglobin 12.9g/dL (13.0-17.5) Hematocrit 38.1% (39.0-53.0) Mean Corpuscular Volume 88fL (79-100) Mean Corpuscular Hemoglobin 30pg (25-35) Mean Corpuscular Hemoglobin Concent 34g/dL (31-37) Red Cell Distribution Width 13.7% (11.5-14.5) Platelet Count 240x10^3/uL (140-400) Neutrophils (%) (Auto) 61% (31-73) Lymphocytes (%) (Auto) 26% (24-48) Monocytes (%) (Auto) 10% (0-9) Eosinophils (%) (Auto) 2% (0-3) Basophils (%) (Auto) 1% (0-3) Neutrophils # (Auto) 4.0x10^3uL (1.8-7.7) Lymphocytes # (Auto) 1.7x10^3/uL (1.0-4.8) Monocytes # (Auto) 0.7x10^3/uL (0.0-1.1) Eosinophils # (Auto) 0.1x10^3/uL (0.0-0.7) Basophils # (Auto) 0.1x10^3/uL (0.0-0.2) Segmented Neutrophils % 53% (35-66) Band Neutrophils % 4% (0-9) Lymphocytes % 27% (24-48) Monocytes % 13% (0-10) Eosinophils % 2% (0-5) Basophils % 1% (0-3) Platelet Estimate Adequate (ADEQUATE) Sodium Level 143mmol/L (136-145) Potassium Level 3.8mmol/L (3.5-5.1) Chloride Level 108mmol/L (98-107) Carbon Dioxide Level 25mmol/L (21-32) Anion Gap 10 (6-14) Blood Urea Nitrogen 14mg/dL (8-26) Creatinine 0.7mg/dL (0.7-1.3) Estimated GFR (Cockcroft-Gault) 119.4 Glucose Level 85mg/dL (70-99) Calcium Level 8.8mg/dL (8.5-10.1) Review of Systems Review of Systems soft stools no headache no cp, no soa, no abd pain All1 4 pt reviewed, neg Assessment and Plan Assessmemt and Plan Problems Medical Problems: (1) Subdural hematoma Status: Acute (2) Supratherapeutic INR Status: Acute Problems: Comment Review of Relevant I have reviewed the following items jordy (where applicable) has been applied. Labs Laboratory Tests Test 06/28/16 04:50 06/29/16 05:20 White Blood Count 7.4x10^3/uL (4.0-11.0) 6.6x10^3/uL (4.0-11.0) Red Blood Count 4.24x10^6/uL (4.30-5.70) 4.34x10^6/uL (4.30-5.70) Hemoglobin 12.7g/dL (13.0-17.5) 12.9g/dL (13.0-17.5) Hematocrit 38.3% (39.0-53.0) 38.1% (39.0-53.0) Mean Corpuscular Volume 90fL (79-100) 88fL (79-100) Mean Corpuscular Hemoglobin 30pg (25-35) 30pg (25-35) Mean Corpuscular Hemoglobin Concent 33g/dL (31-37) 34g/dL (31-37) Red Cell Distribution Width 13.8% (11.5-14.5) 13.7% (11.5-14.5) Platelet Count 242x10^3/uL (140-400) 240x10^3/uL (140-400) Neutrophils (%) (Auto) 76% (31-73) 61% (31-73) Lymphocytes (%) (Auto) 13% (24-48) 26% (24-48) Monocytes (%) (Auto) 9% (0-9) 10% (0-9) Eosinophils (%) (Auto) 2% (0-3) 2% (0-3) Basophils (%) (Auto) 1% (0-3) 1% (0-3) Neutrophils # (Auto) 5.6x10^3uL (1.8-7.7) 4.0x10^3uL (1.8-7.7) Lymphocytes # (Auto) 1.0x10^3/uL (1.0-4.8) 1.7x10^3/uL (1.0-4.8) Monocytes # (Auto) 0.6x10^3/uL (0.0-1.1) 0.7x10^3/uL (0.0-1.1) Eosinophils # (Auto) 0.1x10^3/uL (0.0-0.7) 0.1x10^3/uL (0.0-0.7) Basophils # (Auto) 0.1x10^3/uL (0.0-0.2) 0.1x10^3/uL (0.0-0.2) Prothrombin Time 19.9SEC (11.7-14.0) Prothromb Time International Ratio 1.8 (0.8-1.1) Sodium Level 139mmol/L (136-145) 143mmol/L (136-145) Potassium Level 4.1mmol/L (3.5-5.1) 3.8mmol/L (3.5-5.1) Chloride Level 106mmol/L (98-107) 108mmol/L (98-107) Carbon Dioxide Level 26mmol/L (21-32) 25mmol/L (21-32) Anion Gap 7 (6-14) 10 (6-14) Blood Urea Nitrogen 14mg/dL (8-26) 14mg/dL (8-26) Creatinine 0.7mg/dL (0.7-1.3) 0.7mg/dL (0.7-1.3) Estimated GFR (Cockcroft-Gault) 119.4 119.4 Glucose Level 92mg/dL (70-99) 85mg/dL (70-99) Calcium Level 8.6mg/dL (8.5-10.1) 8.8mg/dL (8.5-10.1) Segmented Neutrophils % 53% (35-66) Band Neutrophils % 4% (0-9) Lymphocytes % 27% (24-48) Monocytes % 13% (0-10) Eosinophils % 2% (0-5) Basophils % 1% (0-3) Platelet Estimate Adequate (ADEQUATE) Laboratory Tests Test 06/29/16 05:20 White Blood Count 6.6x10^3/uL (4.0-11.0) Red Blood Count 4.34x10^6/uL (4.30-5.70) Hemoglobin 12.9g/dL (13.0-17.5) Hematocrit 38.1% (39.0-53.0) Mean Corpuscular Volume 88fL (79-100) Mean Corpuscular Hemoglobin 30pg (25-35) Mean Corpuscular Hemoglobin Concent 34g/dL (31-37) Red Cell Distribution Width 13.7% (11.5-14.5) Platelet Count 240x10^3/uL (140-400) Neutrophils (%) (Auto) 61% (31-73) Lymphocytes (%) (Auto) 26% (24-48) Monocytes (%) (Auto) 10% (0-9) Eosinophils (%) (Auto) 2% (0-3) Basophils (%) (Auto) 1% (0-3) Neutrophils # (Auto) 4.0x10^3uL (1.8-7.7) Lymphocytes # (Auto) 1.7x10^3/uL (1.0-4.8) Monocytes # (Auto) 0.7x10^3/uL (0.0-1.1) Eosinophils # (Auto) 0.1x10^3/uL (0.0-0.7) Basophils # (Auto) 0.1x10^3/uL (0.0-0.2) Segmented Neutrophils % 53% (35-66) Band Neutrophils % 4% (0-9) Lymphocytes % 27% (24-48) Monocytes % 13% (0-10) Eosinophils % 2% (0-5) Basophils % 1% (0-3) Platelet Estimate Adequate (ADEQUATE) Sodium Level 143mmol/L (136-145) Potassium Level 3.8mmol/L (3.5-5.1) Chloride Level 108mmol/L (98-107) Carbon Dioxide Level 25mmol/L (21-32) Anion Gap 10 (6-14) Blood Urea Nitrogen 14mg/dL (8-26) Creatinine 0.7mg/dL (0.7-1.3) Estimated GFR (Cockcroft-Gault) 119.4 Glucose Level 85mg/dL (70-99) Calcium Level 8.8mg/dL (8.5-10.1) Microbiology 06/13/16 Urine Culture - Final, Complete 06/13/16 Urine Culture Result 1 (GLENN) - Final, Complete Medications Current Medications Sodium Chloride (Iv Sodium Chloride 0.9% 1000ml Bag) 1,000 ml @ 100 mls/hr 1X ONCE IV Last administered on 06/13/16 13:45; Start 06/13/16 at 13:45; Stop at 23:44; Status DC Phytonadione (Mephyton) 10 mg 1X ONCE PO Last administered on 06/13/16 15:03; Start 06/13/16 at 15:00; Stop 06/13/16 at 15:01; Status DC Ondansetron HCl 4 mg 4 mg PRN Q8HRS PRN IV NAUSEA/VOMITING; Start 06/13/16 at 16 :15; Stop 06/14/16 at 16:14; Status DC Sodium Chloride (Iv Sodium Chloride 0.9% 1000ml Bag) 1,000 ml @ 100 mls/hr Q10H IV Last administered on 06/14/16 05:49; Start 06/13/16 at 16:10; Stop at 13:20; Status DC Morphine Sulfate 2 mg 1X ONCE IV Last administered on 06/13/16 18:08; Start at 18:30; Stop 06/13/16 at 18:31; Status DC Oxycodone/ Acetaminophen (Percocet 5/325) 1 tab PRN Q4HRS PRN PO PAIN Last administered on 06/28/16 22:28; Start 06/13/16 at 18:00 Oxycodone/ Acetaminophen (Percocet 5/325) 2 tab PRN Q4HRS PRN PO PAIN Last administered on 06/26/16 21:43; Start 06/13/16 at 18:00 Metoprolol Succinate (Toprol Xl) 25 mg DAILY PO Last administered on 06/28/16 09:56; Start 06/14/16 at 09:00 Lorazepam 2 mg 2 mg PRN Q4HRS PRN IV ANXIETY / AGITATION Last administered on 14:33; Start 06/13/16 at 19:45 Levetiracetam 500 mg/Sodium Chloride 105 ml @ 400 mls/hr PRN Q12HRS PRN IV SEIZURES; Start 06/13/16 at 19:45; Stop 06/29/16 at 10:20; Status DC Potassium Chloride/Sodium Chloride (KCl 20 Meq-0.45% Nacl) 1,000 ml @ 100 mls/ hr Q10H IV Last administered on 06/17/16 03:24; Start 06/14/16 at 13:30; Stop 06/17/16 at 12:24; Status DC Warfarin Sodium (Coumadin Per Pharmacy) 1 each PRN DAILY PRN MC SEE COMMENTS Last administered on 06/28/16 13:56; Start 06/14/16 at 16:00 Warfarin Sodium 2.5 mg 2.5 mg 1X WARF ONCE PO ; Start 06/14/16 at 17:00; Stop at 17:01; Status Cancel Bacitracin/Sodium Chloride (Iv Sodium Chloride 0.9% 1000ml Bag) 1,000 ml @ 1, 000 mls/hr 1X PERIOP ONCE IRR Last administered on 06/15/16 12:41; Start at 10:00; Stop 06/15/16 at 10:59; Status DC Ondansetron HCl (Zofran) 4 mg PRN Q6HRS PRN IV Nausea; Start 06/15/16 at 10:00; Stop 06/16/16 at 09:59; Status DC Fentanyl Citrate (Fentanyl 2ml Vial) 25 mcg PRN Q5MIN PRN IV MILD PAIN; Start 06/15/16 at 10:00; Stop 06/16/16 at 09:59; Status DC Fentanyl Citrate (Fentanyl 2ml Vial) 50 mcg PRN Q5MIN PRN IV MODERATE PAIN; Start 06/15/16 at 10:00; Stop 06/16/16 at 09:59; Status DC Morphine Sulfate 1 mg 1 mg PRN Q10MIN PRN IV SEVERE PAIN; Start 06/15/16 at 10: 00; Stop 06/16/16 at 09:59; Status DC Lactated Ringer's (Iv Lactated Ringers) 1,000 ml @ 30 mls/hr Q24H IV ; Start at 09:47; Stop 06/15/16 at 21:46; Status DC Lidocaine HCl 2 ml 1X PRN PRN ID IV START; Start 06/15/16 at 10:00; Stop at 09:59; Status DC Hydromorphone HCl (Dilaudid) 0.5 mg PRN Q10MIN PRN IV SEV PAIN,Second choice; Start 06/15/16 at 10:00; Stop 06/16/16 at 09:59; Status DC Prochlorperazine Edisylate (Compazine) 5 mg PACU PRN PRN IV NAUSEA; Start at 10:00; Stop 06/16/16 at 09:59; Status DC Phytonadione (Vitamin K) 2 mg 1X ONCE SQ Last administered on 06/15/16 11:21; Start 06/15/16 at 09:45; Stop 06/15/16 at 09:57; Status DC Dexamethasone Sodium Phosphate (Decadron) 20 mg STK-MED ONCE .ROUTE ; Start 06/15 at 10:26; Stop 06/15/16 at 10:27; Status DC Ondansetron HCl (Zofran) 4 mg STK-MED ONCE .ROUTE ; Start 06/15/16 at 10:26; Stop 06/15/16 at 10:27; Status DC Rocuronium [place] 50 mg 50 mg STK-MED ONCE .ROUTE ; Start 06/15/16 at 10:26; Stop 06/15/16 at 10:27; Status DC Propofol (Diprivan) 20 ml @ As Directed STK-MED ONCE IV ; Start 06/15/16 at 10:26 ; Stop 06/15/16 at 10:27; Status DC Lidocaine HCl 100 mg STK-MED ONCE .ROUTE ; Start 06/15/16 at 10:26; Stop 06/15/16 at 10:27; Status DC Fentanyl Citrate (Fentanyl 2ml Vial) 100 mcg STK-MED ONCE .ROUTE ; Start at 10:26; Stop 06/15/16 at 10:27; Status DC Thrombin 20,000 unit STK-MED ONCE TP Last administered on 06/15/16 12:41; Start 06/15/16 at 10:47; Stop 06/15/16 at 10:48; Status DC Gelatin (Gelfoam Size 100) 1 each STK-MED ONCE .ROUTE Last administered on 06/15 12:41; Start 06/15/16 at 10:48; Stop 06/15/16 at 10:49; Status DC Bupivacaine HCl/ Epinephrine Bitart (Sensorcaine-Epi 0.25%-1:396869 Mpf) 30 ml STK-MED ONCE .ROUTE Last administered on 06/15/16 12:41; Start 06/15/16 at 10:48 ; Stop 06/15/16 at 10:49; Status DC Cellulose 1 each STK-MED ONCE .ROUTE ; Start 06/15/16 at 10:49; Stop 06/15/16 at 10:50; Status DC Potassium Chloride 20 meq 20 meq 1X ONCE PO Last administered on 06/15/16 11: 21; Start 06/15/16 at 11:15; Stop 06/15/16 at 11:16; Status DC Cefazolin Sodium/ Dextrose (Ancef 2gm Premix) 50 ml @ 100 mls/hr 1X PREOP PRN IV PER PROTOCOL Last administered on 06/15/16 12:56; Start 06/16/16 at 06:00; Stop 06/16/16 at 18:00; Status DC Ephedrine Sulfate 50 mg STK-MED ONCE IV ; Start 06/15/16 at 13:04; Stop 06/15/16 at 13:05; Status DC Glycopyrrolate (Robinul) 1 mg STK-MED ONCE .ROUTE ; Start 06/15/16 at 13:39; Stop 06/15/16 at 13:40; Status DC Neostigmine Methylsulfate 5 mg STK-MED ONCE .ROUTE ; Start 06/15/16 at 13:39; Stop 06/15/16 at 13:40; Status DC Fentanyl Citrate (Fentanyl 2ml Vial) 100 mcg STK-MED ONCE .ROUTE ; Start at 13:55; Stop 06/15/16 at 13:56; Status DC Sevoflurane (Ultane) 30 ml STK-MED ONCE IH ; Start 06/15/16 at 13:55; Stop at 13:56; Status DC Sevoflurane (Ultane) 60 ml STK-MED ONCE IH ; Start 06/15/16 at 13:55; Stop at 13:56; Status DC Warfarin Sodium (Coumadin - No Dose Today) 1 each 1X WARF ONCE MC Last administered on 06/15/16 16:00; Start 06/15/16 at 16:00; Stop 06/15/16 at 16:01; Status DC Cefazolin Sodium/ Dextrose (Ancef 2gm Premix) 2 gm STK-MED ONCE IV ; Start at 13:00; Stop 06/16/16 at 08:05; Status DC Famotidine (Pepcid) 20 mg BID IVP ; Start 06/16/16 at 21:00; Stop 06/16/16 at 21 :00; Status DC Famotidine (Pepcid) 20 mg BID PO Last administered on 06/29/16 08:51; Start at 13:00 Warfarin Sodium (Coumadin) 5 mg 1X WARF ONCE PO Last administered on 18:15; Start 06/17/16 at 16:00; Stop 06/17/16 at 16:01; Status DC Warfarin Sodium (Coumadin) 7.5 mg 1X WARF ONCE PO Last administered on 16:25; Start 06/18/16 at 16:00; Stop 06/18/16 at 16:01; Status DC Ondansetron HCl (Zofran) 4 mg PRN Q6HRS PRN IV NAUSEA/VOMITING Last administered on 06/28/16 03:05; Start 06/19/16 at 03:00 Morphine Sulfate 2 mg PRN Q2HR PRN IV PAIN Last administered on 06/20/16 08:06 ; Start 06/19/16 at 03:00; Stop 06/20/16 at 10:14; Status DC Warfarin Sodium 7.5 mg 7.5 mg 1X WARF ONCE PO ; Start 06/19/16 at 16:00; Stop 06/19/16 at 16:01; Status DC Amino Acids/ Glycerin/ Electrolytes (Procalamine) 1,000 ml @ 75 mls/hr [id number] IV Last administered on 06/23/16 01:06; Start 06/19/16 at 16:15; Stop at 10:24; Status DC Fentanyl Citrate (Fentanyl 2ml Vial) 50 mcg Q6HRS PRN IM BREAKTHROUGH PAIN; Start 06/20/16 at 10:15; Stop 06/20/16 at 11:08; Status DC Fentanyl Citrate (Fentanyl 2ml Vial) 50 mcg PRN Q6HRS PRN IV BREAKTHROUGH PAIN Last administered on 06/22/16 22:11; Start 06/20/16 at 11:15 Warfarin Sodium (Coumadin) 7.5 mg 1X WARF ONCE PO ; Start 06/20/16 at 16:00; Stop 06/20/16 at 16:01; Status DC Enoxaparin Sodium (Lovenox Per Pharmacy Treatment Dosing) 1 each PRN DAILY PRN MC SEE COMMENTS; Start 06/21/16 at 12:30; Stop 06/22/16 at 12:29; Status DC Enoxaparin Sodium 60 mg 60 mg Q12HR SQ Last administered on 06/22/16 21:13; Start 06/21/16 at 13:00; Stop 06/23/16 at 10:24; Status DC Bacitracin/Sodium Chloride (Iv Sodium Chloride 0.9% 1000ml Bag) 1,000 ml @ 1, 000 mls/hr 1X PERIOP ONCE IRR ; Start 06/22/16 at 09:00; Stop 06/22/16 at 09:59 ; Status DC Ondansetron HCl (Zofran) 4 mg PRN Q6HRS PRN IV Nausea; Start 06/22/16 at 09:00 ; Stop 06/22/16 at 18:00; Status DC Fentanyl Citrate (Fentanyl 2ml Vial) 25 mcg PRN Q5MIN PRN IV MILD PAIN; Start 06/22/16 at 09:00; Stop 06/22/16 at 18:00; Status DC Fentanyl Citrate (Fentanyl 2ml Vial) 50 mcg PRN Q5MIN PRN IV MODERATE PAIN Last administered on 06/22/16 17:20; Start 06/22/16 at 09:00; Stop 06/22/16 at 18:00; Status DC Morphine Sulfate 1 mg 1 mg PRN Q10MIN PRN IV SEVERE PAIN; Start 06/22/16 at 09: 00; Stop 06/22/16 at 18:00; Status DC Lactated Ringer's (Iv Lactated Ringers) 1,000 ml @ 30 mls/hr Q24H IV Last administered on 06/22/16 10:55; Start 06/22/16 at 08:52; Stop 06/22/16 at 20:51 ; Status DC Lidocaine HCl 2 ml 1X PRN PRN ID IV START; Start 06/22/16 at 09:00; Stop at 18:00; Status DC Hydromorphone HCl (Dilaudid) 0.5 mg PRN Q10MIN PRN IV SEV PAIN,Second choice; Start 06/22/16 at 09:00; Stop 06/22/16 at 18:00; Status DC Prochlorperazine Edisylate (Compazine) 5 mg PACU PRN PRN IV NAUSEA; Start 06/22 at 09:00; Stop 06/22/16 at 18:00; Status DC Bupivacaine HCl/ Epinephrine Bitart (Sensorcaine-Epi 0.25%-1:[id number] Mpf) 30 ml STK-MED ONCE .ROUTE Last administered on 06/22/16 12:21; Start 06/22/16 at 09: 22; Stop 06/22/16 at 09:23; Status DC Cellulose 1 each STK-MED ONCE .ROUTE ; Start 06/22/16 at 09:22; Stop 06/22/16 at 09:23; Status DC Thrombin 20,000 unit STK-MED ONCE TP Last administered on 06/22/16 12:21; Start 06/22/16 at 09:22; Stop 06/22/16 at 09:23; Status DC Gelatin 1 each 1 each STK-MED ONCE .ROUTE Last administered on 06/22/16 12:21 ; Start 06/22/16 at 09:23; Stop 06/22/16 at 09:24; Status DC Propofol (Diprivan) 20 ml @ As Directed STK-MED ONCE IV ; Start 06/22/16 at 09: 57; Stop 06/22/16 at 09:58; Status DC Lidocaine HCl 100 mg STK-MED ONCE .ROUTE ; Start 06/22/16 at 09:57; Stop at 09:58; Status DC Rocuronium [place] (Zemuron) 50 mg STK-MED ONCE .ROUTE ; Start 06/22/16 at 09:57 ; Stop 06/22/16 at 09:58; Status DC Ondansetron HCl (Zofran) 4 mg STK-MED ONCE .ROUTE ; Start 06/22/16 at 09:58; Stop 06/22/16 at 09:59; Status DC Dexamethasone Sodium Phosphate (Decadron) 20 mg STK-MED ONCE .ROUTE ; Start at 09:58; Stop 06/22/16 at 09:59; Status DC Fentanyl Citrate 100 mcg 100 mcg STK-MED ONCE .ROUTE ; Start 06/22/16 at 09:59; Stop 06/22/16 at 10:00; Status DC Cefazolin Sodium/ Dextrose (Ancef 2gm Premix) 50 ml @ 100 mls/hr 1X PREOP IV Last administered on 06/22/16 12:37; Start 06/22/16 at 10:15; Stop 06/28/16 at 12:06; Status DC Metoprolol Tartrate (Lopressor) 5 mg STK-MED ONCE .ROUTE ; Start 06/22/16 at 11: 05; Stop 06/22/16 at 11:06; Status DC Metoprolol Tartrate (Lopressor) 5 mg 1X ONCE IVP Last administered on 11:12; Start 06/22/16 at 11:15; Stop 06/22/16 at 11:16; Status DC Ephedrine Sulfate 50 mg STK-MED ONCE IV ; Start 06/22/16 at 12:11; Stop at 12:12; Status DC Glycopyrrolate (Robinul) 1 mg STK-MED ONCE .ROUTE ; Start 06/22/16 at 12:40; Stop 06/22/16 at 12:41; Status DC Neostigmine Methylsulfate 5 mg STK-MED ONCE .ROUTE ; Start 06/22/16 at 12:40; Stop 06/22/16 at 12:41; Status DC Sevoflurane 60 ml 60 ml STK-MED ONCE IH ; Start 06/22/16 at 13:05; Stop at 13:06; Status DC Cefazolin Sodium/ Sodium Chloride (Ancef/Iv Sodium Chloride 0.9% 50ml) 50 ml @ 100 mls/hr Q8HRS IV Last administered on 06/29/16 06:32; Start 06/22/16 at 23: 00; Stop 06/29/16 at 10:20; Status DC Warfarin Sodium (Coumadin) 7.5 mg 1X WARF ONCE PO Last administered on 17:06; Start 06/23/16 at 16:00; Stop 06/23/16 at 16:01; Status DC Enoxaparin Sodium (Lovenox 60mg Syringe) 60 mg Q12HR SQ Last administered on 08:52; Start 06/24/16 at 21:00 Warfarin Sodium (Coumadin) 7.5 mg 1X WARF ONCE PO Last administered on 15:35; Start 06/24/16 at 16:00; Stop 06/24/16 at 16:01; Status DC Warfarin Sodium (Coumadin) 5 mg 1X WARF ONCE PO Last administered on 16:49; Start 06/25/16 at 16:00; Stop 06/25/16 at 16:01; Status DC Alprazolam (Xanax) 0.25 mg PRN Q6HRS PRN PO ANXIETY / AGITATION Last administered on 06/29/16 00:15; Start 06/26/16 at 08:00 Potassium Chloride (Klor-Con) 20 meq BID PO Last administered on 06/26/16 20: 06; Start 06/26/16 at 10:15; Stop 06/26/16 at 23:55; Status DC Warfarin Sodium 6 mg 6 mg 1X WARF ONCE PO Last administered on 06/26/16 16:19 ; Start 06/26/16 at 16:00; Stop 06/26/16 at 16:01; Status DC Sodium Chloride (Iv Sodium Chloride 0.9% 1000ml Bag) 1,000 ml @ 75 mls/hr 1X ONCE IV Last administered on 06/27/16 10:26; Start 06/27/16 at 10:15; Stop at 23:34; Status DC Info (Anti-Coagulation Monitoring By Pharmacy) 1 each PRN DAILY PRN MC SEE COMMENTS Last administered on 06/27/16 14:33; Start 06/27/16 at 14:30 Warfarin Sodium (Coumadin) 7.5 mg 1X WARF ONCE PO Last administered on 16:29; Start 06/27/16 at 16:00; Stop 06/27/16 at 16:01; Status DC Polyethylene Glycol (miraLAX PACKET) 17 gm PRN BID PRN PO CONSTIPATION Last administered on 06/28/16 13:49; Start 06/28/16 at 12:30; Stop 06/29/16 at 10:20 ; Status DC Bisacodyl (Dulcolax Supp) 10 mg PRN DAILY PRN DC CONSTIPATION Last administered on 06/28/16 14:24; Start 06/28/16 at 13:45 Warfarin Sodium (Coumadin) 7.5 mg 1X WARF ONCE PO Last administered on 17:32; Start 06/28/16 at 16:00; Stop 06/28/16 at 16:01; Status DC Polyethylene Glycol (miraLAX PACKET) 17 gm DAILY PO ; Start 06/28/16 at 15:00; Stop 06/29/16 at 10:20; Status DC Loperamide HCl (Imodium) 2 mg PRN Q15MIN PRN PO DIARRHEA; Start 06/29/16 at 10: 30 Levetiracetam (Keppra) 500 mg BID PO Last administered on 06/29/16t 12:53; Start 06/29/16 at 11:00 Active Scripts Active Reported Coumadin (Warfarin Sodium) 5 Mg Tablet 1 Tab PO DAILY Metoprolol Succinate ( Xl ) (Metoprolol Succinate) 25 Mg Tab.er.24h 25 Mg PO DAILY Vitals/I & O Vital Sign - Last 24 Hours 06/28/16 06/28/16 06/28/16 06/28/16 15:00 19:10 20:30 23:05 Temp 97.7 98.4 98.1 97.7 98.4 98.1 Pulse 81 78 55 Resp 18 B/P 97/65 95/89 82/52 Pulse Ox 95 98 95 O2 Delivery Room Air Room Air Room Air Room Air 06/29/16 06/29/16 06/29/16 06/29/16 03:03 07:00 07:30 08:52 Temp 98.1 98.0 98.1 98.0 Pulse 102 83 87 Resp 18 18 B/P 98/72 85/67 85/67 Pulse Ox 95 95 O2 Delivery Room Air Room Air Room Air 06/29/16 11:00 Temp 98.1 98.1 Pulse 68 Resp 18 B/P 93/58 Pulse Ox 94 O2 Delivery Room Air Intake and Output 06/28/16 06/28/16 06/29/16 15:00 23:00 07:00 Intake Total 950 ml 250 ml Output Total 800 ml Balance 150 ml 250 ml DANILO PIZANO MD Jun 29, 2016 13:36
[2016-06-29 14:19] LABS: INR 2.4 (0.8-1.1); PROTHROMBIN TIME PATIENT 24.6 SEC (11.7-14.0)
--- NOTE | 2016-06-29 14:53 | PDOC ---
PROGRESS NOTES Assessment Assessment IMPRESSION: Bilateral SDH, status post bilateral nela holes Headache, improved. Metabolic encephalopathy Marfan's syndrome, s/p aortic and mitral valve replacements. Left eye vision loss. RECOMMENDATIONS/PLAN: Pain control Keppra if has seizures. Avoid anticoagulants. SUBJECTIVE: Headaches nearly resolved. OBJECTIVE: No new neurological deficits. PAST MEDICAL AND SURGICAL HISTORY: Please see H&P ALLERGY: Reviewed. MEDICATIONS: Refer to [facility] [place] REVIEW OF SYSTEMS: Constitutional: No cachexia. Head: No recent traumatic brain or head injury. Skin: No edema, or rash. Ear: No infection, tinnitus. Eyes: No vision loss, or diplopia. Nose: No bleeding or purulent discharges. Hearing: No hearing decrease. Neck: No injury. Cardiac: Marfan's syndrome. Pulmonary: No CPOD. GI: No GI Ulcer, GI bleeding Urinary/genital: No dysuria, hematuria, incontinence, urinary retention. Endocrine: No cousin face, craniofacial dysmorphism, polydactyly Skeletomuscular: No muscular atrophy. Neurological: see HP. Psychiatric: Denies drug use/abuse. Otherwise, not [id number] review of systems. PHYSICAL EXAMINATION: General appearance in subacute distress. HEENT: Normocephalic and nontraumatic. Eyes, nose, ears, and throat are unremarkable. Hearing decrease. Neck is supple. No lymphadenopathy. No bruits are heard over the carotid artery. No Crepitus. Cardiovascular: S1, S2, regular rate and rhythm. Pulmonary: Clear to auscultation bilaterally. Abdomen: Bowel sounds are positive. Extremities: No rash, lesions, or edema. No restriction of range of motion NEUROLOGICAL EXAMINATION: Alert. Oriented to time, place and person. PERRL. EOMI. CN: no focal findings. Muscle tone: within normal. Muscle strength: 5- DTR: 2 Plantar reflex: Neutral response bilaterally Gait: not examined in bed. Sensory exam: no abnormal findings. No obvious cerebellar signs elicited. F-T-N test fine. Objective Objective Vital Signs Date Time Temp Pulse Resp B/P Pulse Ox O2 Delivery O2 Flow Rate FiO2 06/29/16 11:00 98.1 68 18 93/58 94 Room Air 98.1 Intake and Output 06/29/16 07:00 Intake Total 1200 ml Output Total 800 ml Balance 400 ml Intake Oral 1200 ml Output Urine Total 800 ml # Voids 1 Vitals Signs Vitals VS - Last 72 Hours, by Label Date Time Temp Pulse Resp B/P Pulse Ox O2 Delivery O2 Flow Rate FiO2 06/29/16 11:00 98.1 68 18 93/58 94 Room Air 98.1 06/29/16 08:52 87 85/67 06/29/16 07:30 Room Air 06/29/16 07:00 98.0 83 18 85/67 95 Room Air 98.0 06/29/16 03:03 98.1 102 18 98/72 95 Room Air 98.1 06/28/16 23:05 98.1 55 18 82/52 95 Room Air 98.1 06/28/16 20:30 Room Air 06/28/16 19:10 98.4 78 18 95/89 98 Room Air 98.4 06/28/16 15:00 97.7 81 18 97/65 95 Room Air 97.7 06/28/16 11:00 97.9 96 16 100/61 96 Room Air 97.9 06/28/16 09:56 92 130/92 06/28/16 08:00 Room Air 06/28/16 07:00 98.1 92 18 130/92 92 Room Air 98.1 Laboratory Laboratory Laboratory Tests Test 06/29/16 05:20 06/29/16 13:55 White Blood Count 6.6x10^3/uL (4.0-11.0) Red Blood Count 4.34x10^6/uL (4.30-5.70) Hemoglobin 12.9g/dL (13.0-17.5) Hematocrit 38.1% (39.0-53.0) Mean Corpuscular Volume 88fL (79-100) Mean Corpuscular Hemoglobin 30pg (25-35) Mean Corpuscular Hemoglobin Concent 34g/dL (31-37) Red Cell Distribution Width 13.7% (11.5-14.5) Platelet Count 240x10^3/uL (140-400) Neutrophils (%) (Auto) 61% (31-73) Lymphocytes (%) (Auto) 26% (24-48) Monocytes (%) (Auto) 10% (0-9) Eosinophils (%) (Auto) 2% (0-3) Basophils (%) (Auto) 1% (0-3) Neutrophils # (Auto) 4.0x10^3uL (1.8-7.7) Lymphocytes # (Auto) 1.7x10^3/uL (1.0-4.8) Monocytes # (Auto) 0.7x10^3/uL (0.0-1.1) Eosinophils # (Auto) 0.1x10^3/uL (0.0-0.7) Basophils # (Auto) 0.1x10^3/uL (0.0-0.2) Segmented Neutrophils % 53% (35-66) Band Neutrophils % 4% (0-9) Lymphocytes % 27% (24-48) Monocytes % 13% (0-10) Eosinophils % 2% (0-5) Basophils % 1% (0-3) Platelet Estimate Adequate (ADEQUATE) Sodium Level 143mmol/L (136-145) Potassium Level 3.8mmol/L (3.5-5.1) Chloride Level 108mmol/L (98-107) Carbon Dioxide Level 25mmol/L (21-32) Anion Gap 10 (6-14) Blood Urea Nitrogen 14mg/dL (8-26) Creatinine 0.7mg/dL (0.7-1.3) Estimated GFR (Cockcroft-Gault) 119.4 Glucose Level 85mg/dL (70-99) Calcium Level 8.8mg/dL (8.5-10.1) Prothrombin Time 24.6SEC (11.7-14.0) Prothromb Time International Ratio 2.4 (0.8-1.1) Microbiology 06/13/16 Urine Culture - Final, Complete 06/13/16 Urine Culture Result 1 (GLENN) - Final, Complete Medication Medications Current Medications Levetiracetam (Keppra) 500 mg BID PO Last administered on 06/29/16t 12:53; Start 06/29/16 at 11:00 Loperamide HCl (Imodium) 2 mg PRN Q15MIN PRN PO DIARRHEA; Start 06/29/16 at 10: 30 Polyethylene Glycol (miraLAX PACKET) 17 gm DAILY PO ; Start 06/28/16 at 15:00; Stop 06/29/16 at 10:20; Status DC Warfarin Sodium (Coumadin) 6 mg 1X WARF ONCE PO ; Start 06/29/16 at 16:00; Stop 06/29/16 at 16:01 Warfarin Sodium (Coumadin) 7.5 mg 1X WARF ONCE PO Last administered on t 17:32; Start 06/28/16 at 16:00; Stop 06/28/16 at 16:01; Status DC Comment Review of Relevant I have reviewed the following items jordy (where applicable) has been applied. SHANEKA GSOS MD Jun 29, 2016 14:53
[2016-06-29 15:00] VITALS: BP 87/54
[2016-06-29] MEDS ORDERED: WARFARIN 6 MG TABLET. PO ONE (16:00)
[2016-06-29 19:00] VITALS: BP 96/55
[2016-06-29 23:00] VITALS: BP 96/69
[2016-06-30 03:00] VITALS: BP 97/65
[2016-06-30 04:51] LABS: INR 2.3 (0.8-1.1); PROTHROMBIN TIME PATIENT 23.6 SEC (11.7-14.0)
[2016-06-30 07:00] VITALS: BP 92/58
[2016-06-30] MEDS: ENOXAPARIN ** NOTE DOSE ** SYRINGE SQ SCH (08:08)
[2016-06-30] MEDS: METOPROLOL SUCC 24HR ER 25 MG TAB.ER.24H. PO SCH (08:13)
[2016-06-30] MEDS: FAMOTIDINE 20 MG TABLET. PO SCH ×2 (08:13→21:57)
[2016-06-30] MEDS: LEVETIRACETAM 500 MG TABLET PO SCH ×2 (08:13→21:56)
[2016-06-30 11:00] VITALS: BP 91/53
--- NOTE | 2016-06-30 11:08 | PDOC ---
PROGRESS NOTES Chief Complaint Chief Complaint Headaches , B SDH ASSESSMENT AND PLAN: 0. Marfans 1. Acute, nontraumatic bilateral subdural hematomas: s/p bilat nela holes on 06/13, 06/16. 06/23. Dr Soto following 2. Metabolic encephalopathy: improved, almost to baseline. Dr Leiva following 3. Marfan's syndrome; with hx of aortic and mitral valve replacements 4. Chronic anticoag (for AVR): coumadin restarted, subtherapeutic INR. managed by pharm 5. HTN: well controlled on current regimen 6. Dysphagia: resolved. reg diet 7. L eye blindness: chronic 8. Dispo: SNU when therapeutic on coumadin, no recurrent bleed. d/w pt and brother in detail History of Present Illness History of Present Illness Pt seen and examined NO medical issues HAd bilateral nela holes Restarted on coumadin for his heart valve from marfan's INR goal 2.5-3.5 per other notes Pt lives in basement, SP NO rehab resources though needed PLAN Keep until wed or as dw case Dw SW dc iV keppra - shift to PO Dc IV cefazolin - soft stools, completed course, no sign of ongoing infection Dc miralax - soft stools SW looking into [facility] in pt rehab Vitals Vitals Vital Signs Date Time Temp Pulse Resp B/P Pulse Ox O2 Delivery O2 Flow Rate FiO2 06/30/16 08:13 78 92/58 06/30/16 07:00 97.9 18 95 Room Air 97.9 Physical Exam Physical Exam bilat temporal nela holes covered with gauze General: Alert, Oriented X3, Cooperative, No acute distress Heart: Regular rate, Normal S1 Lungs: Clear, Other Abdomen: Normal bowel sounds, Soft, No tenderness Extremities: No clubbing, No edema Skin: No breakdown Labs LABS Laboratory Tests Test 06/29/16 13:55 06/30/16 04:25 Prothrombin Time 24.6SEC (11.7-14.0) 23.6SEC (11.7-14.0) Prothromb Time International Ratio 2.4 (0.8-1.1) 2.3 (0.8-1.1) Assessment and Plan Assessmemt and Plan Problems Medical Problems: (1) Subdural hematoma Status: Acute (2) Supratherapeutic INR Status: Acute Problems: Comment Review of Relevant I have reviewed the following items jordy (where applicable) has been applied. Labs Laboratory Tests Test 06/29/16 05:20 06/29/16 13:55 06/30/16 04:25 White Blood Count 6.6x10^3/uL (4.0-11.0) Red Blood Count 4.34x10^6/uL (4.30-5.70) Hemoglobin 12.9g/dL (13.0-17.5) Hematocrit 38.1% (39.0-53.0) Mean Corpuscular Volume 88fL (79-100) Mean Corpuscular Hemoglobin 30pg (25-35) Mean Corpuscular Hemoglobin Concent 34g/dL (31-37) Red Cell Distribution Width 13.7% (11.5-14.5) Platelet Count 240x10^3/uL (140-400) Neutrophils (%) (Auto) 61% (31-73) Lymphocytes (%) (Auto) 26% (24-48) Monocytes (%) (Auto) 10% (0-9) Eosinophils (%) (Auto) 2% (0-3) Basophils (%) (Auto) 1% (0-3) Neutrophils # (Auto) 4.0x10^3uL (1.8-7.7) Lymphocytes # (Auto) 1.7x10^3/uL (1.0-4.8) Monocytes # (Auto) 0.7x10^3/uL (0.0-1.1) Eosinophils # (Auto) 0.1x10^3/uL (0.0-0.7) Basophils # (Auto) 0.1x10^3/uL (0.0-0.2) Segmented Neutrophils % 53% (35-66) Band Neutrophils % 4% (0-9) Lymphocytes % 27% (24-48) Monocytes % 13% (0-10) Eosinophils % 2% (0-5) Basophils % 1% (0-3) Platelet Estimate Adequate (ADEQUATE) Sodium Level 143mmol/L (136-145) Potassium Level 3.8mmol/L (3.5-5.1) Chloride Level 108mmol/L (98-107) Carbon Dioxide Level 25mmol/L (21-32) Anion Gap 10 (6-14) Blood Urea Nitrogen 14mg/dL (8-26) Creatinine 0.7mg/dL (0.7-1.3) Estimated GFR (Cockcroft-Gault) 119.4 Glucose Level 85mg/dL (70-99) Calcium Level 8.8mg/dL (8.5-10.1) Prothrombin Time 24.6SEC (11.7-14.0) 23.6SEC (11.7-14.0) Prothromb Time International Ratio 2.4 (0.8-1.1) 2.3 (0.8-1.1) Laboratory Tests Test 06/29/16 13:55 06/30/16 04:25 Prothrombin Time 24.6SEC (11.7-14.0) 23.6SEC (11.7-14.0) Prothromb Time International Ratio 2.4 (0.8-1.1) 2.3 (0.8-1.1) Microbiology 06/13/16 Urine Culture - Final, Complete 06/13/16 Urine Culture Result 1 (GLENN) - Final, Complete Medications Current Medications Sodium Chloride (Iv Sodium Chloride 0.9% 1000ml Bag) 1,000 ml @ 100 mls/hr 1X ONCE IV Last administered on 06/13/16 13:45; Start 06/13/16 at 13:45; Stop at 23:44; Status DC Phytonadione (Mephyton) 10 mg 1X ONCE PO Last administered on 06/13/16 15:03; Start 06/13/16 at 15:00; Stop 06/13/16 at 15:01; Status DC Ondansetron HCl 4 mg 4 mg PRN Q8HRS PRN IV NAUSEA/VOMITING; Start 06/13/16 at 16 :15; Stop 06/14/16 at 16:14; Status DC Sodium Chloride (Iv Sodium Chloride 0.9% 1000ml Bag) 1,000 ml @ 100 mls/hr Q10H IV Last administered on 06/14/16 05:49; Start 06/13/16 at 16:10; Stop at 13:20; Status DC Morphine Sulfate 2 mg 1X ONCE IV Last administered on 06/13/16 18:08; Start at 18:30; Stop 06/13/16 at 18:31; Status DC Oxycodone/ Acetaminophen (Percocet 5/325) 1 tab PRN Q4HRS PRN PO PAIN Last administered on 06/28/16 22:28; Start 06/13/16 at 18:00 Oxycodone/ Acetaminophen (Percocet 5/325) 2 tab PRN Q4HRS PRN PO PAIN Last administered on 06/26/16 21:43; Start 06/13/16 at 18:00 Metoprolol Succinate (Toprol Xl) 25 mg DAILY PO Last administered on 06/30/16 08:13; Start 06/14/16 at 09:00; Stop 06/30/16 at 09:09; Status DC Lorazepam 2 mg 2 mg PRN Q4HRS PRN IV ANXIETY / AGITATION Last administered on 14:33; Start 06/13/16 at 19:45 Levetiracetam 500 mg/Sodium Chloride 105 ml @ 400 mls/hr PRN Q12HRS PRN IV SEIZURES; Start 06/13/16 at 19:45; Stop 06/29/16 at 10:20; Status DC Potassium Chloride/Sodium Chloride (KCl 20 Meq-0.45% Nacl) 1,000 ml @ 100 mls/ hr Q10H IV Last administered on 06/17/16 03:24; Start 06/14/16 at 13:30; Stop 06/17/16 at 12:24; Status DC Warfarin Sodium (Coumadin Per Pharmacy) 1 each PRN DAILY PRN MC SEE COMMENTS Last administered on 06/29/16 14:47; Start 06/14/16 at 16:00 Warfarin Sodium 2.5 mg 2.5 mg 1X WARF ONCE PO ; Start 06/14/16 at 17:00; Stop at 17:01; Status Cancel Bacitracin/Sodium Chloride (Iv Sodium Chloride 0.9% 1000ml Bag) 1,000 ml @ 1, 000 mls/hr 1X PERIOP ONCE IRR Last administered on 06/15/16 12:41; Start at 10:00; Stop 06/15/16 at 10:59; Status DC Ondansetron HCl (Zofran) 4 mg PRN Q6HRS PRN IV Nausea; Start 06/15/16 at 10:00; Stop 06/16/16 at 09:59; Status DC Fentanyl Citrate (Fentanyl 2ml Vial) 25 mcg PRN Q5MIN PRN IV MILD PAIN; Start 06/15/16 at 10:00; Stop 06/16/16 at 09:59; Status DC Fentanyl Citrate (Fentanyl 2ml Vial) 50 mcg PRN Q5MIN PRN IV MODERATE PAIN; Start 06/15/16 at 10:00; Stop 06/16/16 at 09:59; Status DC Morphine Sulfate 1 mg 1 mg PRN Q10MIN PRN IV SEVERE PAIN; Start 06/15/16 at 10: 00; Stop 06/16/16 at 09:59; Status DC Lactated Ringer's (Iv Lactated Ringers) 1,000 ml @ 30 mls/hr Q24H IV ; Start at 09:47; Stop 06/15/16 at 21:46; Status DC Lidocaine HCl 2 ml 1X PRN PRN ID IV START; Start 06/15/16 at 10:00; Stop at 09:59; Status DC Hydromorphone HCl (Dilaudid) 0.5 mg PRN Q10MIN PRN IV SEV PAIN,Second choice; Start 06/15/16 at 10:00; Stop 06/16/16 at 09:59; Status DC Prochlorperazine Edisylate (Compazine) 5 mg PACU PRN PRN IV NAUSEA; Start at 10:00; Stop 06/16/16 at 09:59; Status DC Phytonadione (Vitamin K) 2 mg 1X ONCE SQ Last administered on 06/15/16t 11:21; Start 06/15/16 at 09:45; Stop 06/15/16 at 09:57; Status DC Dexamethasone Sodium Phosphate (Decadron) 20 mg STK-MED ONCE .ROUTE ; Start 06/15 at 10:26; Stop 06/15/16 at 10:27; Status DC Ondansetron HCl (Zofran) 4 mg STK-MED ONCE .ROUTE ; Start 06/15/16 at 10:26; Stop 06/15/16 at 10:27; Status DC Rocuronium [place] 50 mg 50 mg STK-MED ONCE .ROUTE ; Start 06/15/16 at 10:26; Stop 06/15/16 at 10:27; Status DC Propofol (Diprivan) 20 ml @ As Directed STK-MED ONCE IV ; Start 06/15/16 at 10:26 ; Stop 06/15/16 at 10:27; Status DC Lidocaine HCl 100 mg STK-MED ONCE .ROUTE ; Start 06/15/16 at 10:26; Stop 06/15/16 at 10:27; Status DC Fentanyl Citrate (Fentanyl 2ml Vial) 100 mcg STK-MED ONCE .ROUTE ; Start at 10:26; Stop 06/15/16 at 10:27; Status DC Thrombin 20,000 unit STK-MED ONCE TP Last administered on 06/15/16 12:41; Start 06/15/16 at 10:47; Stop 06/15/16 at 10:48; Status DC Gelatin (Gelfoam Size 100) 1 each STK-MED ONCE .ROUTE Last administered on 06/15 12:41; Start 06/15/16 at 10:48; Stop 06/15/16 at 10:49; Status DC Bupivacaine HCl/ Epinephrine Bitart (Sensorcaine-Epi 0.25%-1:978621 Mpf) 30 ml STK-MED ONCE .ROUTE Last administered on 06/15/16 12:41; Start 06/15/16 at 10:48 ; Stop 06/15/16 at 10:49; Status DC Cellulose 1 each STK-MED ONCE .ROUTE ; Start 06/15/16 at 10:49; Stop 06/15/16 at 10:50; Status DC Potassium Chloride 20 meq 20 meq 1X ONCE PO Last administered on 06/15/16 11: 21; Start 06/15/16 at 11:15; Stop 06/15/16 at 11:16; Status DC Cefazolin Sodium/ Dextrose (Ancef 2gm Premix) 50 ml @ 100 mls/hr 1X PREOP PRN IV PER PROTOCOL Last administered on 06/15/16 12:56; Start 06/16/16 at 06:00; Stop 06/16/16 at 18:00; Status DC Ephedrine Sulfate 50 mg STK-MED ONCE IV ; Start 06/15/16 at 13:04; Stop 06/15/16 at 13:05; Status DC Glycopyrrolate (Robinul) 1 mg STK-MED ONCE .ROUTE ; Start 06/15/16 at 13:39; Stop 06/15/16 at 13:40; Status DC Neostigmine Methylsulfate 5 mg STK-MED ONCE .ROUTE ; Start 06/15/16 at 13:39; Stop 06/15/16 at 13:40; Status DC Fentanyl Citrate (Fentanyl 2ml Vial) 100 mcg STK-MED ONCE .ROUTE ; Start at 13:55; Stop 06/15/16 at 13:56; Status DC Sevoflurane (Ultane) 30 ml STK-MED ONCE IH ; Start 06/15/16 at 13:55; Stop at 13:56; Status DC Sevoflurane (Ultane) 60 ml STK-MED ONCE IH ; Start 06/15/16 at 13:55; Stop at 13:56; Status DC Warfarin Sodium (Coumadin - No Dose Today) 1 each 1X WARF ONCE MC Last administered on 06/15/16 16:00; Start 06/15/16 at 16:00; Stop 06/15/16 at 16:01; Status DC Cefazolin Sodium/ Dextrose (Ancef 2gm Premix) 2 gm STK-MED ONCE IV ; Start at 13:00; Stop 06/16/16 at 08:05; Status DC Famotidine (Pepcid) 20 mg BID IVP ; Start 06/16/16 at 21:00; Stop 06/16/16 at 21 :00; Status DC Famotidine (Pepcid) 20 mg BID PO Last administered on 06/30/16 08:13; Start at 13:00 Warfarin Sodium (Coumadin) 5 mg 1X WARF ONCE PO Last administered on 18:15; Start 06/17/16 at 16:00; Stop 06/17/16 at 16:01; Status DC Warfarin Sodium (Coumadin) 7.5 mg 1X WARF ONCE PO Last administered on 16:25; Start 06/18/16 at 16:00; Stop 06/18/16 at 16:01; Status DC Ondansetron HCl (Zofran) 4 mg PRN Q6HRS PRN IV NAUSEA/VOMITING Last administered on 06/28/16 03:05; Start 06/19/16 at 03:00 Morphine Sulfate 2 mg PRN Q2HR PRN IV PAIN Last administered on 06/20/16 08:06 ; Start 06/19/16 at 03:00; Stop 06/20/16 at 10:14; Status DC Warfarin Sodium 7.5 mg 7.5 mg 1X WARF ONCE PO ; Start 06/19/16 at 16:00; Stop 06/19/16 at 16:01; Status DC Amino Acids/ Glycerin/ Electrolytes (Procalamine) 1,000 ml @ 75 mls/hr [id number] IV Last administered on 06/23/16 01:06; Start 06/19/16 at 16:15; Stop at 10:24; Status DC Fentanyl Citrate (Fentanyl 2ml Vial) 50 mcg Q6HRS PRN IM BREAKTHROUGH PAIN; Start 06/20/16 at 10:15; Stop 06/20/16 at 11:08; Status DC Fentanyl Citrate (Fentanyl 2ml Vial) 50 mcg PRN Q6HRS PRN IV BREAKTHROUGH PAIN Last administered on 06/22/16 22:11; Start 06/20/16 at 11:15 Warfarin Sodium (Coumadin) 7.5 mg 1X WARF ONCE PO ; Start 06/20/16 at 16:00; Stop 06/20/16 at 16:01; Status DC Enoxaparin Sodium (Lovenox Per Pharmacy Treatment Dosing) 1 each PRN DAILY PRN MC SEE COMMENTS; Start 06/21/16 at 12:30; Stop 06/22/16 at 12:29; Status DC Enoxaparin Sodium 60 mg 60 mg Q12HR SQ Last administered on 06/22/16 21:13; Start 06/21/16 at 13:00; Stop 06/23/16 at 10:24; Status DC Bacitracin/Sodium Chloride (Iv Sodium Chloride 0.9% 1000ml Bag) 1,000 ml @ 1, 000 mls/hr 1X PERIOP ONCE IRR ; Start 06/22/16 at 09:00; Stop 06/22/16 at 09:59 ; Status DC Ondansetron HCl (Zofran) 4 mg PRN Q6HRS PRN IV Nausea; Start 06/22/16 at 09:00 ; Stop 06/22/16 at 18:00; Status DC Fentanyl Citrate (Fentanyl 2ml Vial) 25 mcg PRN Q5MIN PRN IV MILD PAIN; Start 06/22/16 at 09:00; Stop 06/22/16 at 18:00; Status DC Fentanyl Citrate (Fentanyl 2ml Vial) 50 mcg PRN Q5MIN PRN IV MODERATE PAIN Last administered on 06/22/16 17:20; Start 06/22/16 at 09:00; Stop 06/22/16 at 18:00; Status DC Morphine Sulfate 1 mg 1 mg PRN Q10MIN PRN IV SEVERE PAIN; Start 06/22/16 at 09: 00; Stop 06/22/16 at 18:00; Status DC Lactated Ringer's (Iv Lactated Ringers) 1,000 ml @ 30 mls/hr Q24H IV Last administered on 06/22/16 10:55; Start 06/22/16 at 08:52; Stop 06/22/16 at 20:51 ; Status DC Lidocaine HCl 2 ml 1X PRN PRN ID IV START; Start 06/22/16 at 09:00; Stop at 18:00; Status DC Hydromorphone HCl (Dilaudid) 0.5 mg PRN Q10MIN PRN IV SEV PAIN,Second choice; Start 06/22/16 at 09:00; Stop 06/22/16 at 18:00; Status DC Prochlorperazine Edisylate (Compazine) 5 mg PACU PRN PRN IV NAUSEA; Start 06/22 at 09:00; Stop 06/22/16 at 18:00; Status DC Bupivacaine HCl/ Epinephrine Bitart (Sensorcaine-Epi 0.25%-1:590799 Mpf) 30 ml STK-MED ONCE .ROUTE Last administered on 06/22/16 12:21; Start 06/22/16 at 09: 22; Stop 06/22/16 at 09:23; Status DC Cellulose 1 each STK-MED ONCE .ROUTE ; Start 06/22/16 at 09:22; Stop 06/22/16 at 09:23; Status DC Thrombin 20,000 unit STK-MED ONCE TP Last administered on 06/22/16 12:21; Start 06/22/16 at 09:22; Stop 06/22/16 at 09:23; Status DC Gelatin 1 each 1 each STK-MED ONCE .ROUTE Last administered on 06/22/16t 12:21 ; Start 06/22/16 at 09:23; Stop 06/22/16 at 09:24; Status DC Propofol (Diprivan) 20 ml @ As Directed STK-MED ONCE IV ; Start 06/22/16 at 09: 57; Stop 06/22/16 at 09:58; Status DC Lidocaine HCl 100 mg STK-MED ONCE .ROUTE ; Start 06/22/16 at 09:57; Stop at 09:58; Status DC Rocuronium [place] (Zemuron) 50 mg STK-MED ONCE .ROUTE ; Start 06/22/16 at 09:57 ; Stop 06/22/16 at 09:58; Status DC Ondansetron HCl (Zofran) 4 mg STK-MED ONCE .ROUTE ; Start 06/22/16 at 09:58; Stop 06/22/16 at 09:59; Status DC Dexamethasone Sodium Phosphate (Decadron) 20 mg STK-MED ONCE .ROUTE ; Start at 09:58; Stop 06/22/16 at 09:59; Status DC Fentanyl Citrate 100 mcg 100 mcg STK-MED ONCE .ROUTE ; Start 06/22/16 at 09:59; Stop 06/22/16 at 10:00; Status DC Cefazolin Sodium/ Dextrose (Ancef 2gm Premix) 50 ml @ 100 mls/hr 1X PREOP IV Last administered on 06/22/16 12:37; Start 06/22/16 at 10:15; Stop 06/28/16 at 12:06; Status DC Metoprolol Tartrate (Lopressor) 5 mg STK-MED ONCE .ROUTE ; Start 06/22/16 at 11: 05; Stop 06/22/16 at 11:06; Status DC Metoprolol Tartrate (Lopressor) 5 mg 1X ONCE IVP Last administered on 11:12; Start 06/22/16 at 11:15; Stop 06/22/16 at 11:16; Status DC Ephedrine Sulfate 50 mg STK-MED ONCE IV ; Start 06/22/16 at 12:11; Stop at 12:12; Status DC Glycopyrrolate (Robinul) 1 mg STK-MED ONCE .ROUTE ; Start 06/22/16 at 12:40; Stop 06/22/16 at 12:41; Status DC Neostigmine Methylsulfate 5 mg STK-MED ONCE .ROUTE ; Start 06/22/16 at 12:40; Stop 06/22/16 at 12:41; Status DC Sevoflurane 60 ml 60 ml STK-MED ONCE IH ; Start 06/22/16 at 13:05; Stop at 13:06; Status DC Cefazolin Sodium/ Sodium Chloride (Ancef/Iv Sodium Chloride 0.9% 50ml) 50 ml @ 100 mls/hr Q8HRS IV Last administered on 06/29/16 06:32; Start 06/22/16 at 23: 00; Stop 06/29/16 at 10:20; Status DC Warfarin Sodium (Coumadin) 7.5 mg 1X WARF ONCE PO Last administered on 17:06; Start 06/23/16 at 16:00; Stop 06/23/16 at 16:01; Status DC Enoxaparin Sodium (Lovenox 60mg Syringe) 60 mg Q12HR SQ Last administered on 08:08; Start 06/24/16 at 21:00; Stop 06/30/16 at 09:09; Status DC Warfarin Sodium (Coumadin) 7.5 mg 1X WARF ONCE PO Last administered on 15:35; Start 06/24/16 at 16:00; Stop 06/24/16 at 16:01; Status DC Warfarin Sodium (Coumadin) 5 mg 1X WARF ONCE PO Last administered on 16:49; Start 06/25/16 at 16:00; Stop 06/25/16 at 16:01; Status DC Alprazolam (Xanax) 0.25 mg PRN Q6HRS PRN PO ANXIETY / AGITATION Last administered on 06/29/16 00:15; Start 06/26/16 at 08:00 Potassium Chloride (Klor-Con) 20 meq BID PO Last administered on 06/26/16 20: 06; Start 06/26/16 at 10:15; Stop 06/26/16 at 23:55; Status DC Warfarin Sodium 6 mg 6 mg 1X WARF ONCE PO Last administered on 06/26/16 16:19 ; Start 06/26/16 at 16:00; Stop 06/26/16 at 16:01; Status DC Sodium Chloride (Iv Sodium Chloride 0.9% 1000ml Bag) 1,000 ml @ 75 mls/hr 1X ONCE IV Last administered on 06/27/16 10:26; Start 06/27/16 at 10:15; Stop at 23:34; Status DC Info (Anti-Coagulation Monitoring By Pharmacy) 1 each PRN DAILY PRN MC SEE COMMENTS Last administered on 06/27/16 14:33; Start 06/27/16 at 14:30 Warfarin Sodium (Coumadin) 7.5 mg 1X WARF ONCE PO Last administered on 16:29; Start 06/27/16 at 16:00; Stop 06/27/16 at 16:01; Status DC Polyethylene Glycol (miraLAX PACKET) 17 gm PRN BID PRN PO CONSTIPATION Last administered on 06/28/16 13:49; Start 06/28/16 at 12:30; Stop 06/29/16 at 10:20 ; Status DC Bisacodyl (Dulcolax Supp) 10 mg PRN DAILY PRN DC CONSTIPATION Last administered on 06/28/16 14:24; Start 06/28/16 at 13:45 Warfarin Sodium (Coumadin) 7.5 mg 1X WARF ONCE PO Last administered on 17:32; Start 06/28/16 at 16:00; Stop 06/28/16 at 16:01; Status DC Polyethylene Glycol (miraLAX PACKET) 17 gm DAILY PO ; Start 06/28/16 at 15:00; Stop 06/29/16 at 10:20; Status DC Loperamide HCl (Imodium) 2 mg PRN Q15MIN PRN PO DIARRHEA; Start 06/29/16 at 10: 30 Levetiracetam (Keppra) 500 mg BID PO Last administered on 06/30/16 08:13; Start 06/29/16 at 11:00 Warfarin Sodium (Coumadin) 6 mg 1X WARF ONCE PO Last administered on 17:21; Start 06/29/16 at 16:00; Stop 06/29/16 at 16:01; Status DC Metoprolol Tartrate (Lopressor) 12.5 mg BID PO ; Start 07/01/16 at 09:00 Active Scripts Active Reported Coumadin (Warfarin Sodium) 5 Mg Tablet 1 Tab PO DAILY Metoprolol Succinate ( Xl ) (Metoprolol Succinate) 25 Mg Tab.er.24h 25 Mg PO DAILY Vitals/I & O Vital Sign - Last 24 Hours 06/29/16 06/29/16 06/29/16 06/29/16 15:00 19:00 20:00 23:00 Temp 98.1 98.2 97.6 98.1 98.2 97.6 Pulse 85 85 75 Resp 16 18 18 B/P 87/54 96/55 96/69 Pulse Ox 95 95 97 O2 Delivery Room Air Room Air Room Air Room Air 06/30/16 06/30/16 06/30/16 03:00 07:00 08:13 Temp 98.0 97.9 98.0 97.9 Pulse 79 78 78 Resp 18 B/P 97/65 92/58 92/58 Pulse Ox 93 95 O2 Delivery Room Air Room Air Intake and Output 06/29/16 06/29/16 06/30/16 15:00 23:00 07:00 Intake Total 500 ml 200 ml Balance 500 ml 200 ml DANILO PIZANO MD Jun 30, 2016 11:08
--- NOTE | 2016-06-30 14:09 | PDOC ---
PROGRESS NOTES Assessment Assessment Bilateral SDH, status post bilateral nela holes. Headache, improved. Metabolic encephalopathy Marfan's syndrome, s/p aortic and mitral valve replacements. Left eye vision loss. RECOMMENDATIONS/PLAN: Pain control Keppra if has seizures. Avoid anticoagulants. OT/PT. Rehab. FU with NS. FU with Neurology. FU with Cardiology. FU with PCP. SUBJECTIVE: Headaches nearly resolved. OBJECTIVE: No new neurological deficits. PAST MEDICAL AND SURGICAL HISTORY: Please see H&P ALLERGY: Reviewed. MEDICATIONS: Refer to [facility] REVIEW OF SYSTEMS: Constitutional: No cachexia. Head: No recent traumatic brain or head injury. Skin: No edema, or rash. Ear: No infection, tinnitus. Eyes: No vision loss, or diplopia. Nose: No bleeding or purulent discharges. Hearing: No hearing decrease. Neck: No injury. Cardiac: Marfan's syndrome. Pulmonary: No CPOD. GI: No GI Ulcer, GI bleeding Urinary/genital: No dysuria, hematuria, incontinence, urinary retention. Endocrine: No cousin face, craniofacial dysmorphism, polydactyly Skeletomuscular: No muscular atrophy. Neurological: see HP. Psychiatric: Denies drug use/abuse. Otherwise, not [id number] review of systems. PHYSICAL EXAMINATION: General appearance in no acute distress. HEENT: Normocephalic and nontraumatic. Eyes, nose, ears, and throat are unremarkable. Hearing decrease. Neck is supple. No lymphadenopathy. No bruits are heard over the carotid artery. No Crepitus. Cardiovascular: S1, S2, regular rate and rhythm. Pulmonary: Clear to auscultation bilaterally. Abdomen: Bowel sounds are positive. Extremities: No rash, lesions, or edema. No restriction of range of motion NEUROLOGICAL EXAMINATION: Alert. Oriented to time, place and person. PERRL. EOMI. CN: no focal findings. Muscle tone: within normal. Muscle strength: 5- DTR: 2 Plantar reflex: Neutral response bilaterally Gait: not examined in bed. Sensory exam: no abnormal findings. No obvious cerebellar signs elicited. F-T-N test fine. Objective Objective Vital Signs Date Time Temp Pulse Resp B/P Pulse Ox O2 Delivery O2 Flow Rate FiO2 06/30/16 11:00 97.7 76 18 91/53 96 Room Air 97.7 Intake and Output 06/30/16 07:00 Intake Total 700 ml Balance 700 ml Intake Oral 700 ml # Voids 5 # Bowel Movements 1 Vitals Signs Vitals VS - Last 72 Hours, by Label Date Time Temp Pulse Resp B/P Pulse Ox O2 Delivery O2 Flow Rate FiO2 06/30/16 11:00 97.7 76 18 91/53 96 Room Air 97.7 06/30/16 08:13 78 92/58 06/30/16 07:00 97.9 78 18 92/58 95 Room Air 97.9 06/30/16 03:00 98.0 79 18 97/65 93 Room Air 98.0 06/29/16 23:00 97.6 75 18 96/69 97 Room Air 97.6 06/29/16 20:00 Room Air 06/29/16 19:00 98.2 85 18 96/55 95 Room Air 98.2 06/29/16 15:00 98.1 85 16 87/54 95 Room Air 98.1 06/29/16 11:00 98.1 68 18 93/58 94 Room Air 98.1 06/29/16 08:52 87 85/67 06/29/16 07:30 Room Air 06/29/16 07:00 98.0 83 18 85/67 95 Room Air 98.0 Laboratory Laboratory Laboratory Tests Test 06/30/16 04:25 Prothrombin Time 23.6SEC (11.7-14.0) Prothromb Time International Ratio 2.3 (0.8-1.1) Microbiology 06/13/16 Urine Culture - Final, Complete 06/13/16 Urine Culture Result 1 (GLENN) - Final, Complete Medication Medications Current Medications Metoprolol Tartrate (Lopressor) 12.5 mg BID PO ; Start 07/01/16 at 09:00 Warfarin Sodium (Coumadin) 6 mg 1X WARF ONCE PO Last administered on t 17:21; Start 06/29/16 at 16:00; Stop 06/29/16 at 16:01; Status DC Warfarin Sodium (Coumadin) 8 mg 1X WARF ONCE PO ; Start 06/30/16 at 16:00; Stop 06/30/16 at 16:01 Comment Review of Relevant I have reviewed the following items jordy (where applicable) has been applied. SHANEKA GOSS MD Jun 30, 2016 14:09
[2016-06-30 15:00] VITALS: BP 99/53
[2016-06-30] MEDS ORDERED: WARFARIN 4 MG TABLET. PO ONE (16:00)
[2016-06-30 19:00] VITALS: BP 89/53
[2016-06-30 23:00] VITALS: BP 100/59
[2016-07-01 03:00] VITALS: BP 117/65
[2016-07-01 05:42] LABS: INR 2.8 (0.8-1.1); PROTHROMBIN TIME PATIENT 27.7 SEC (11.7-14.0)
[2016-07-01 07:15] VITALS: BP 95/62
[2016-07-01] MEDS: LEVETIRACETAM 500 MG TABLET PO SCH ×2 (08:57→21:24)
[2016-07-01] MEDS: METOPROLOL TART IMMED RELEASE 25 MG TABLET PO SCH ×2 (08:57→21:25)
[2016-07-01] MEDS: FAMOTIDINE 20 MG TABLET. PO SCH ×2 (08:58→21:24)
--- NOTE | 2016-07-01 10:09 | PDOC ---
PROGRESS NOTES Chief Complaint Chief Complaint Headaches , B SDH ASSESSMENT AND PLAN: 0. Marfans 1. Acute, nontraumatic bilateral subdural hematomas: s/p bilat nela holes on 06/13, 06/16. 06/23. Dr Soto following 2. Metabolic encephalopathy: improved, almost to baseline. Dr Leiva following 3. Marfan's syndrome; with hx of aortic and mitral valve replacements 4. Chronic anticoag (for AVR): coumadin restarted, subtherapeutic INR. managed by pharm 5. HTN: well controlled on current regimen 6. Dysphagia: resolved. reg diet 7. L eye blindness: chronic 8. Dispo: SNU when therapeutic on coumadin, no recurrent bleed. d/w pt and brother in detail History of Present Illness History of Present Illness Pt seen and examined NO medical issues HAd bilateral nela holes Restarted on coumadin for his heart valve from marfan's INR goal 2.5-3.5 per other notes Pt lives in basement, SP NO rehab resources though needed PLAN Keep until wed or as dw case Dw SW dc iV keppra - shift to PO Dc IV cefazolin - soft stools, completed course, no sign of ongoing infection Dc miralax - soft stools SW looking into [facility] in [facility] rehab To ff up neurosx in 1 week (2 weeks post op - removal of navid) dw SW and pt and neurosx Vitals Vitals Vital Signs Date Time Temp Pulse Resp B/P Pulse Ox O2 Delivery O2 Flow Rate FiO2 07/01/16 08:57 73 95/62 07/01/16 07:40 Room Air 07/01/16 07:15 98.1 16 96 98.1 Physical Exam Physical Exam bilat temporal nela holes covered with gauze General: Alert, Oriented X3, Cooperative, No acute distress Heart: Regular rate, Normal S1 Lungs: Clear, Other Abdomen: Normal bowel sounds, Soft, No tenderness Extremities: No clubbing, No edema Skin: No breakdown Labs LABS Laboratory Tests Test 07/01/16 04:30 Prothrombin Time 27.7SEC (11.7-14.0) Prothromb Time International Ratio 2.8 (0.8-1.1) Assessment and Plan Assessmemt and Plan Problems Medical Problems: (1) Subdural hematoma Status: Acute (2) Supratherapeutic INR Status: Acute Problems: Comment Review of Relevant I have reviewed the following items jordy (where applicable) has been applied. Labs Laboratory Tests Test 06/29/16 13:55 06/30/16 04:25 07/01/16 04:30 Prothrombin Time 24.6SEC (11.7-14.0) 23.6SEC (11.7-14.0) 27.7SEC (11.7-14.0) Prothromb Time International Ratio 2.4 (0.8-1.1) 2.3 (0.8-1.1) 2.8 (0.8-1.1) Laboratory Tests Test 07/01/16 04:30 Prothrombin Time 27.7SEC (11.7-14.0) Prothromb Time International Ratio 2.8 (0.8-1.1) Microbiology 06/13/16 Urine Culture - Final, Complete 06/13/16 Urine Culture Result 1 (GLENN) - Final, Complete Medications Current Medications Sodium Chloride (Iv Sodium Chloride 0.9% 1000ml Bag) 1,000 ml @ 100 mls/hr 1X ONCE IV Last administered on 06/13/16 13:45; Start 06/13/16 at 13:45; Stop at 23:44; Status DC Phytonadione (Mephyton) 10 mg 1X ONCE PO Last administered on 06/13/16 15:03; Start 06/13/16 at 15:00; Stop 06/13/16 at 15:01; Status DC Ondansetron HCl 4 mg 4 mg PRN Q8HRS PRN IV NAUSEA/VOMITING; Start 06/13/16 at 16 :15; Stop 06/14/16 at 16:14; Status DC Sodium Chloride (Iv Sodium Chloride 0.9% 1000ml Bag) 1,000 ml @ 100 mls/hr Q10H IV Last administered on 06/14/16 05:49; Start 06/13/16 at 16:10; Stop at 13:20; Status DC Morphine Sulfate 2 mg 1X ONCE IV Last administered on 06/13/16 18:08; Start at 18:30; Stop 06/13/16 at 18:31; Status DC Oxycodone/ Acetaminophen (Percocet 5/325) 1 tab PRN Q4HRS PRN PO PAIN Last administered on 06/28/16 22:28; Start 06/13/16 at 18:00 Oxycodone/ Acetaminophen (Percocet 5/325) 2 tab PRN Q4HRS PRN PO PAIN Last administered on 06/26/16 21:43; Start 06/13/16 at 18:00 Metoprolol Succinate (Toprol Xl) 25 mg DAILY PO Last administered on 06/30/16 08:13; Start 06/14/16 at 09:00; Stop 06/30/16 at 09:09; Status DC Lorazepam 2 mg 2 mg PRN Q4HRS PRN IV ANXIETY / AGITATION Last administered on 14:33; Start 06/13/16 at 19:45 Levetiracetam 500 mg/Sodium Chloride 105 ml @ 400 mls/hr PRN Q12HRS PRN IV SEIZURES; Start 06/13/16 at 19:45; Stop 06/29/16 at 10:20; Status DC Potassium Chloride/Sodium Chloride (KCl 20 Meq-0.45% Nacl) 1,000 ml @ 100 mls/ hr Q10H IV Last administered on 06/17/16 03:24; Start 06/14/16 at 13:30; Stop 06/17/16 at 12:24; Status DC Warfarin Sodium (Coumadin Per Pharmacy) 1 each PRN DAILY PRN MC SEE COMMENTS Last administered on 06/30/16 11:57; Start 06/14/16 at 16:00 Warfarin Sodium 2.5 mg 2.5 mg 1X WARF ONCE PO ; Start 06/14/16 at 17:00; Stop at 17:01; Status Cancel Bacitracin/Sodium Chloride (Iv Sodium Chloride 0.9% 1000ml Bag) 1,000 ml @ 1, 000 mls/hr 1X PERIOP ONCE IRR Last administered on 06/15/16 12:41; Start at 10:00; Stop 06/15/16 at 10:59; Status DC Ondansetron HCl (Zofran) 4 mg PRN Q6HRS PRN IV Nausea; Start 06/15/16 at 10:00; Stop 06/16/16 at 09:59; Status DC Fentanyl Citrate (Fentanyl 2ml Vial) 25 mcg PRN Q5MIN PRN IV MILD PAIN; Start 06/15/16 at 10:00; Stop 06/16/16 at 09:59; Status DC Fentanyl Citrate (Fentanyl 2ml Vial) 50 mcg PRN Q5MIN PRN IV MODERATE PAIN; Start 06/15/16 at 10:00; Stop 06/16/16 at 09:59; Status DC Morphine Sulfate 1 mg 1 mg PRN Q10MIN PRN IV SEVERE PAIN; Start 06/15/16 at 10: 00; Stop 06/16/16 at 09:59; Status DC Lactated Ringer's (Iv Lactated Ringers) 1,000 ml @ 30 mls/hr Q24H IV ; Start at 09:47; Stop 06/15/16 at 21:46; Status DC Lidocaine HCl 2 ml 1X PRN PRN ID IV START; Start 06/15/16 at 10:00; Stop at 09:59; Status DC Hydromorphone HCl (Dilaudid) 0.5 mg PRN Q10MIN PRN IV SEV PAIN,Second choice; Start 06/15/16 at 10:00; Stop 06/16/16 at 09:59; Status DC Prochlorperazine Edisylate (Compazine) 5 mg PACU PRN PRN IV NAUSEA; Start at 10:00; Stop 06/16/16 at 09:59; Status DC Phytonadione (Vitamin K) 2 mg 1X ONCE SQ Last administered on 06/15/16t 11:21; Start 06/15/16 at 09:45; Stop 06/15/16 at 09:57; Status DC Dexamethasone Sodium Phosphate (Decadron) 20 mg STK-MED ONCE .ROUTE ; Start 06/15 at 10:26; Stop 06/15/16 at 10:27; Status DC Ondansetron HCl (Zofran) 4 mg STK-MED ONCE .ROUTE ; Start 06/15/16 at 10:26; Stop 06/15/16 at 10:27; Status DC Rocuronium [place] 50 mg 50 mg STK-MED ONCE .ROUTE ; Start 06/15/16 at 10:26; Stop 06/15/16 at 10:27; Status DC Propofol (Diprivan) 20 ml @ As Directed STK-MED ONCE IV ; Start 06/15/16 at 10:26 ; Stop 06/15/16 at 10:27; Status DC Lidocaine HCl 100 mg STK-MED ONCE .ROUTE ; Start 06/15/16 at 10:26; Stop 06/15/16 at 10:27; Status DC Fentanyl Citrate (Fentanyl 2ml Vial) 100 mcg STK-MED ONCE .ROUTE ; Start at 10:26; Stop 06/15/16 at 10:27; Status DC Thrombin 20,000 unit STK-MED ONCE TP Last administered on 06/15/16 12:41; Start 06/15/16 at 10:47; Stop 06/15/16 at 10:48; Status DC Gelatin (Gelfoam Size 100) 1 each STK-MED ONCE .ROUTE Last administered on 06/15 12:41; Start 06/15/16 at 10:48; Stop 06/15/16 at 10:49; Status DC Bupivacaine HCl/ Epinephrine Bitart (Sensorcaine-Epi 0.25%-1:634218 Mpf) 30 ml STK-MED ONCE .ROUTE Last administered on 06/15/16 12:41; Start 06/15/16 at 10:48 ; Stop 06/15/16 at 10:49; Status DC Cellulose 1 each STK-MED ONCE .ROUTE ; Start 06/15/16 at 10:49; Stop 06/15/16 at 10:50; Status DC Potassium Chloride 20 meq 20 meq 1X ONCE PO Last administered on 06/15/16 11: 21; Start 06/15/16 at 11:15; Stop 06/15/16 at 11:16; Status DC Cefazolin Sodium/ Dextrose (Ancef 2gm Premix) 50 ml @ 100 mls/hr 1X PREOP PRN IV PER PROTOCOL Last administered on 06/15/16 12:56; Start 06/16/16 at 06:00; Stop 06/16/16 at 18:00; Status DC Ephedrine Sulfate 50 mg STK-MED ONCE IV ; Start 06/15/16 at 13:04; Stop 06/15/16 at 13:05; Status DC Glycopyrrolate (Robinul) 1 mg STK-MED ONCE .ROUTE ; Start 06/15/16 at 13:39; Stop 06/15/16 at 13:40; Status DC Neostigmine Methylsulfate 5 mg STK-MED ONCE .ROUTE ; Start 06/15/16 at 13:39; Stop 06/15/16 at 13:40; Status DC Fentanyl Citrate (Fentanyl 2ml Vial) 100 mcg STK-MED ONCE .ROUTE ; Start at 13:55; Stop 06/15/16 at 13:56; Status DC Sevoflurane (Ultane) 30 ml STK-MED ONCE IH ; Start 06/15/16 at 13:55; Stop at 13:56; Status DC Sevoflurane (Ultane) 60 ml STK-MED ONCE IH ; Start 06/15/16 at 13:55; Stop at 13:56; Status DC Warfarin Sodium (Coumadin - No Dose Today) 1 each 1X WARF ONCE MC Last administered on 06/15/16 16:00; Start 06/15/16 at 16:00; Stop 06/15/16 at 16:01; Status DC Cefazolin Sodium/ Dextrose (Ancef 2gm Premix) 2 gm STK-MED ONCE IV ; Start at 13:00; Stop 06/16/16 at 08:05; Status DC Famotidine (Pepcid) 20 mg BID IVP ; Start 06/16/16 at 21:00; Stop 06/16/16 at 21 :00; Status DC Famotidine (Pepcid) 20 mg BID PO Last administered on 07/01/16 08:58; Start at 13:00 Warfarin Sodium (Coumadin) 5 mg 1X WARF ONCE PO Last administered on 18:15; Start 06/17/16 at 16:00; Stop 06/17/16 at 16:01; Status DC Warfarin Sodium (Coumadin) 7.5 mg 1X WARF ONCE PO Last administered on 16:25; Start 06/18/16 at 16:00; Stop 06/18/16 at 16:01; Status DC Ondansetron HCl (Zofran) 4 mg PRN Q6HRS PRN IV NAUSEA/VOMITING Last administered on 06/28/16 03:05; Start 06/19/16 at 03:00 Morphine Sulfate 2 mg PRN Q2HR PRN IV PAIN Last administered on 06/20/16 08:06 ; Start 06/19/16 at 03:00; Stop 06/20/16 at 10:14; Status DC Warfarin Sodium 7.5 mg 7.5 mg 1X WARF ONCE PO ; Start 06/19/16 at 16:00; Stop 06/19/16 at 16:01; Status DC Amino Acids/ Glycerin/ Electrolytes (Procalamine) 1,000 ml @ 75 mls/hr [id number] IV Last administered on 06/23/16 01:06; Start 06/19/16 at 16:15; Stop at 10:24; Status DC Fentanyl Citrate (Fentanyl 2ml Vial) 50 mcg Q6HRS PRN IM BREAKTHROUGH PAIN; Start 06/20/16 at 10:15; Stop 06/20/16 at 11:08; Status DC Fentanyl Citrate (Fentanyl 2ml Vial) 50 mcg PRN Q6HRS PRN IV BREAKTHROUGH PAIN Last administered on 06/22/16 22:11; Start 06/20/16 at 11:15 Warfarin Sodium (Coumadin) 7.5 mg 1X WARF ONCE PO ; Start 06/20/16 at 16:00; Stop 06/20/16 at 16:01; Status DC Enoxaparin Sodium (Lovenox Per Pharmacy Treatment Dosing) 1 each PRN DAILY PRN MC SEE COMMENTS; Start 06/21/16 at 12:30; Stop 06/22/16 at 12:29; Status DC Enoxaparin Sodium 60 mg 60 mg Q12HR SQ Last administered on 06/22/16 21:13; Start 06/21/16 at 13:00; Stop 06/23/16 at 10:24; Status DC Bacitracin/Sodium Chloride (Iv Sodium Chloride 0.9% 1000ml Bag) 1,000 ml @ 1, 000 mls/hr 1X PERIOP ONCE IRR ; Start 06/22/16 at 09:00; Stop 06/22/16 at 09:59 ; Status DC Ondansetron HCl (Zofran) 4 mg PRN Q6HRS PRN IV Nausea; Start 06/22/16 at 09:00 ; Stop 06/22/16 at 18:00; Status DC Fentanyl Citrate (Fentanyl 2ml Vial) 25 mcg PRN Q5MIN PRN IV MILD PAIN; Start 06/22/16 at 09:00; Stop 06/22/16 at 18:00; Status DC Fentanyl Citrate (Fentanyl 2ml Vial) 50 mcg PRN Q5MIN PRN IV MODERATE PAIN Last administered on 06/22/16 17:20; Start 06/22/16 at 09:00; Stop 06/22/16 at 18:00; Status DC Morphine Sulfate 1 mg 1 mg PRN Q10MIN PRN IV SEVERE PAIN; Start 06/22/16 at 09: 00; Stop 06/22/16 at 18:00; Status DC Lactated Ringer's (Iv Lactated Ringers) 1,000 ml @ 30 mls/hr Q24H IV Last administered on 06/22/16 10:55; Start 06/22/16 at 08:52; Stop 06/22/16 at 20:51 ; Status DC Lidocaine HCl 2 ml 1X PRN PRN ID IV START; Start 06/22/16 at 09:00; Stop at 18:00; Status DC Hydromorphone HCl (Dilaudid) 0.5 mg PRN Q10MIN PRN IV SEV PAIN,Second choice; Start 06/22/16 at 09:00; Stop 06/22/16 at 18:00; Status DC Prochlorperazine Edisylate (Compazine) 5 mg PACU PRN PRN IV NAUSEA; Start 06/22 at 09:00; Stop 06/22/16 at 18:00; Status DC Bupivacaine HCl/ Epinephrine Bitart (Sensorcaine-Epi 0.25%-1:176910 Mpf) 30 ml STK-MED ONCE .ROUTE Last administered on 06/22/16 12:21; Start 06/22/16 at 09: 22; Stop 06/22/16 at 09:23; Status DC Cellulose 1 each STK-MED ONCE .ROUTE ; Start 06/22/16 at 09:22; Stop 06/22/16 at 09:23; Status DC Thrombin 20,000 unit STK-MED ONCE TP Last administered on 06/22/16 12:21; Start 06/22/16 at 09:22; Stop 06/22/16 at 09:23; Status DC Gelatin 1 each 1 each STK-MED ONCE .ROUTE Last administered on 1/16/17at 12:21 ; Start 06/22/16 at 09:23; Stop 06/22/16 at 09:24; Status DC Propofol (Diprivan) 20 ml @ As Directed STK-MED ONCE IV ; Start 06/22/16 at 09: 57; Stop 06/22/16 at 09:58; Status DC Lidocaine HCl 100 mg STK-MED ONCE .ROUTE ; Start 06/22/16 at 09:57; Stop at 09:58; Status DC Rocuronium [place] (Zemuron) 50 mg STK-MED ONCE .ROUTE ; Start 06/22/16 at 09:57 ; Stop 06/22/16 at 09:58; Status DC Ondansetron HCl (Zofran) 4 mg STK-MED ONCE .ROUTE ; Start 06/22/16 at 09:58; Stop 06/22/16 at 09:59; Status DC Dexamethasone Sodium Phosphate (Decadron) 20 mg STK-MED ONCE .ROUTE ; Start at 09:58; Stop 06/22/16 at 09:59; Status DC Fentanyl Citrate 100 mcg 100 mcg STK-MED ONCE .ROUTE ; Start 06/22/16 at 09:59; Stop 06/22/16 at 10:00; Status DC Cefazolin Sodium/ Dextrose (Ancef 2gm Premix) 50 ml @ 100 mls/hr 1X PREOP IV Last administered on 06/22/16t 12:37; Start 06/22/16 at 10:15; Stop 06/28/16 at 12:06; Status DC Metoprolol Tartrate (Lopressor) 5 mg STK-MED ONCE .ROUTE ; Start 06/22/16 at 11: 05; Stop 06/22/16 at 11:06; Status DC Metoprolol Tartrate (Lopressor) 5 mg 1X ONCE IVP Last administered on t 11:12; Start 06/22/16 at 11:15; Stop 06/22/16 at 11:16; Status DC Ephedrine Sulfate 50 mg STK-MED ONCE IV ; Start 06/22/16 at 12:11; Stop at 12:12; Status DC Glycopyrrolate (Robinul) 1 mg STK-MED ONCE .ROUTE ; Start 06/22/16 at 12:40; Stop 06/22/16 at 12:41; Status DC Neostigmine Methylsulfate 5 mg STK-MED ONCE .ROUTE ; Start 06/22/16 at 12:40; Stop 06/22/16 at 12:41; Status DC Sevoflurane 60 ml 60 ml STK-MED ONCE IH ; Start 06/22/16 at 13:05; Stop at 13:06; Status DC Cefazolin Sodium/ Sodium Chloride (Ancef/Iv Sodium Chloride 0.9% 50ml) 50 ml @ 100 mls/hr Q8HRS IV Last administered on 06/29/16 06:32; Start 06/22/16 at 23: 00; Stop 06/29/16 at 10:20; Status DC Warfarin Sodium (Coumadin) 7.5 mg 1X WARF ONCE PO Last administered on 17:06; Start 06/23/16 at 16:00; Stop 06/23/16 at 16:01; Status DC Enoxaparin Sodium (Lovenox 60mg Syringe) 60 mg Q12HR SQ Last administered on 08:08; Start 06/24/16 at 21:00; Stop 06/30/16 at 09:09; Status DC Warfarin Sodium (Coumadin) 7.5 mg 1X WARF ONCE PO Last administered on 15:35; Start 06/24/16 at 16:00; Stop 06/24/16 at 16:01; Status DC Warfarin Sodium (Coumadin) 5 mg 1X WARF ONCE PO Last administered on 16:49; Start 06/25/16 at 16:00; Stop 06/25/16 at 16:01; Status DC Alprazolam (Xanax) 0.25 mg PRN Q6HRS PRN PO ANXIETY / AGITATION Last administered on 06/29/16 00:15; Start 06/26/16 at 08:00 Potassium Chloride (Klor-Con) 20 meq BID PO Last administered on 06/26/16 20: 06; Start 06/26/16 at 10:15; Stop 06/26/16 at 23:55; Status DC Warfarin Sodium 6 mg 6 mg 1X WARF ONCE PO Last administered on 06/26/16 16:19 ; Start 06/26/16 at 16:00; Stop 06/26/16 at 16:01; Status DC Sodium Chloride (Iv Sodium Chloride 0.9% 1000ml Bag) 1,000 ml @ 75 mls/hr 1X ONCE IV Last administered on 06/27/16 10:26; Start 06/27/16 at 10:15; Stop at 23:34; Status DC Info (Anti-Coagulation Monitoring By Pharmacy) 1 each PRN DAILY PRN MC SEE COMMENTS Last administered on 06/27/16 14:33; Start 06/27/16 at 14:30 Warfarin Sodium (Coumadin) 7.5 mg 1X WARF ONCE PO Last administered on 16:29; Start 06/27/16 at 16:00; Stop 06/27/16 at 16:01; Status DC Polyethylene Glycol (miraLAX PACKET) 17 gm PRN BID PRN PO CONSTIPATION Last administered on 06/28/16 13:49; Start 06/28/16 at 12:30; Stop 06/29/16 at 10:20 ; Status DC Bisacodyl (Dulcolax Supp) 10 mg PRN DAILY PRN GA CONSTIPATION Last administered on 06/28/16 14:24; Start 06/28/16 at 13:45 Warfarin Sodium (Coumadin) 7.5 mg 1X WARF ONCE PO Last administered on 17:32; Start 06/28/16 at 16:00; Stop 06/28/16 at 16:01; Status DC Polyethylene Glycol (miraLAX PACKET) 17 gm DAILY PO ; Start 06/28/16 at 15:00; Stop 06/29/16 at 10:20; Status DC Loperamide HCl (Imodium) 2 mg PRN Q15MIN PRN PO DIARRHEA; Start 06/29/16 at 10: 30 Levetiracetam (Keppra) 500 mg BID PO Last administered on 07/01/16 08:57; Start 06/29/16 at 11:00 Warfarin Sodium (Coumadin) 6 mg 1X WARF ONCE PO Last administered on 17:21; Start 06/29/16 at 16:00; Stop 06/29/16 at 16:01; Status DC Metoprolol Tartrate (Lopressor) 12.5 mg BID PO ; Start 07/01/16 at 09:00 Warfarin Sodium (Coumadin) 8 mg 1X WARF ONCE PO Last administered on t 17:07; Start 06/30/16 at 16:00; Stop 06/30/16 at 16:01; Status DC Active Scripts Active Reported Coumadin (Warfarin Sodium) 5 Mg Tablet 1 Tab PO DAILY Metoprolol Succinate ( Xl ) (Metoprolol Succinate) 25 Mg Tab.er.24h 25 Mg PO DAILY Vitals/I & O Vital Sign - Last 24 Hours 06/30/16 06/30/16 06/30/16 06/30/16 11:00 15:00 19:00 19:45 Temp 97.7 98.2 97.5 97.7 98.2 97.5 Pulse 76 74 82 Resp 18 B/P 91/53 99/53 89/53 Pulse Ox 96 94 95 O2 Delivery Room Air Room Air Room Air Room Air 06/30/16 07/01/16 07/01/16 07/01/16 23:00 03:00 07:15 07:40 Temp 97.8 97.4 98.1 97.8 97.4 98.1 Pulse 75 75 73 Resp 16 B/P 100/59 117/65 95/62 Pulse Ox 96 96 96 O2 Delivery Room Air Room Air Room Air Room Air 07/01/16 08:57 Pulse 73 B/P 95/62 Intake and Output 06/30/16 06/30/16 07/01/16 15:00 23:00 07:00 Intake Total 0 ml Balance 0 ml DANILO PIZANO MD Jul 01, 2016 10:09
[2016-07-01 11:07] VITALS: BP 108/65
--- NOTE | 2016-07-01 14:49 | PDOC ---
PROGRESS NOTES Assessment Assessment Bilateral SDH, status post bilateral nela holes. Headache, improved. Metabolic encephalopathy Marfan's syndrome, s/p aortic and mitral valve replacements. Left eye vision loss. RECOMMENDATIONS/PLAN: Keppra if has seizures. Avoid anticoagulants. Discussed with Cardiology and PCP about anticoagulant issues. OT/PT. Rehab. FU with NS. FU with Neurology. FU with Cardiology. FU with PCP. SUBJECTIVE: Headaches resolved. OBJECTIVE: No new neurological deficits. PAST MEDICAL AND SURGICAL HISTORY: Please see H&P ALLERGY: Reviewed. MEDICATIONS: Refer to [facility] REVIEW OF SYSTEMS: Constitutional: No cachexia. Head: No recent traumatic brain or head injury. Skin: No edema, or rash. Ear: No infection, tinnitus. Eyes: No vision loss, or diplopia. Nose: No bleeding or purulent discharges. Hearing: No hearing decrease. Neck: No injury. Cardiac: Marfan's syndrome. Pulmonary: No COPD. GI: No GI Ulcer, GI bleeding Urinary/genital: No dysuria, hematuria, incontinence, urinary retention. Endocrine: No cousin face, craniofacial dysmorphism, polydactyly Skeletomuscular: No muscular atrophy. Neurological: see HP. Psychiatric: Denies drug use/abuse. Otherwise, not [id number] review of systems. PHYSICAL EXAMINATION: General appearance in no acute distress. HEENT: Normocephalic and nontraumatic. Eyes, nose, ears, and throat are unremarkable. Hearing decrease. Neck is supple. No lymphadenopathy. No bruits are heard over the carotid artery. No Crepitus. Cardiovascular: S1, S2, regular rate and rhythm. Pulmonary: Clear to auscultation bilaterally. Abdomen: Bowel sounds are positive. Extremities: No rash, lesions, or edema. No restriction of range of motion NEUROLOGICAL EXAMINATION: Alert. Oriented to time, place and person. PERRL. EOMI. CN: no focal findings. Muscle tone: within normal. Muscle strength: 5- DTR: 2 Plantar reflex: Neutral response bilaterally Gait: albe to walk with a walker. Sensory exam: no abnormal findings. No obvious cerebellar signs elicited. F-T-N test fine. Objective Objective Vital Signs Date Time Temp Pulse Resp B/P Pulse Ox O2 Delivery O2 Flow Rate FiO2 07/01/16 11:07 98.0 74 18 108/65 95 Room Air 98.0 Intake and Output 07/01/16 07:00 Intake Total 0 ml Balance 0 ml Intake Oral 0 ml # Voids 2 Vitals Signs Vitals VS - Last 72 Hours, by Label Date Time Temp Pulse Resp B/P Pulse Ox O2 Delivery O2 Flow Rate FiO2 07/01/16 11:07 98.0 74 18 108/65 95 Room Air 98.0 07/01/16 08:57 73 95/62 07/01/16 07:40 Room Air 07/01/16 07:15 98.1 73 16 95/62 96 Room Air 98.1 07/01/16 03:00 97.4 75 18 117/65 96 Room Air 97.4 06/30/16 23:00 97.8 75 18 100/59 96 Room Air 97.8 06/30/16 19:45 Room Air 06/30/16 19:00 97.5 82 18 89/53 95 Room Air 97.5 06/30/16 15:00 98.2 74 18 99/53 94 Room Air 98.2 06/30/16 11:00 97.7 76 18 91/53 96 Room Air 97.7 06/30/16 08:25 Room Air 06/30/16 08:13 78 92/58 06/30/16 07:00 97.9 78 18 92/58 95 Room Air 97.9 Laboratory Laboratory Laboratory Tests Test 07/01/16 04:30 Prothrombin Time 27.7SEC (11.7-14.0) Prothromb Time International Ratio 2.8 (0.8-1.1) Microbiology 06/13/16 Urine Culture - Final, Complete 06/13/16 Urine Culture Result 1 (GLENN) - Final, Complete Medication Medications Current Medications Metoprolol Tartrate (Lopressor) 12.5 mg BID PO ; Start 07/01/16 at 09:00 Warfarin Sodium (Coumadin) 7.5 mg 1X WARF ONCE PO ; Start 07/01/16 at 16:00; Stop 07/01/16 at 16:01 Warfarin Sodium (Coumadin) 8 mg 1X WARF ONCE PO Last administered on t 17:07; Start 06/30/16 at 16:00; Stop 06/30/16 at 16:01; Status DC Comment Review of Relevant I have reviewed the following items jordy (where applicable) has been applied. SHANEKA GOSS MD Jul 01, 2016 14:49
[2016-07-01 15:15] VITALS: BP 98/56
[2016-07-01] MEDS ORDERED: WARFARIN 7.5 MG TABLET. PO ONE (16:00)
[2016-07-01 19:20] VITALS: BP 94/59
[2016-07-01 23:27] VITALS: BP 102/64
[2016-07-02 03:15] VITALS: BP 95/60
[2016-07-02 05:30] LABS: INR 3.3 (0.8-1.1); PROTHROMBIN TIME PATIENT 32.1 SEC (11.7-14.0)
[2016-07-02 07:15] VITALS: BP 93/66
--- NOTE | 2016-07-02 07:59 | PDOC ---
PROGRESS NOTES Chief Complaint Chief Complaint Headaches , B SDH ASSESSMENT AND PLAN: 0. Marfans 1. Acute, nontraumatic bilateral subdural hematomas: s/p bilat nela holes on 06/13, 06/16. 06/23. Dr Soto following 2. Metabolic encephalopathy: improved, almost to baseline. Dr Leiva following 3. Marfan's syndrome; with hx of aortic and mitral valve replacements 4. Chronic anticoag (for AVR): coumadin restarted, subtherapeutic INR. managed by pharm 5. HTN: well controlled on current regimen 6. Dysphagia: resolved. reg diet 7. L eye blindness: chronic 8. Dispo: SNU when therapeutic on coumadin, no recurrent bleed. d/w pt and brother in detail History of Present Illness History of Present Illness asleep, did not awaken [employer] on the works Vitals Vitals Vital Signs Date Time Temp Pulse Resp B/P Pulse Ox O2 Delivery O2 Flow Rate FiO2 07/02/16 07:15 98.2 75 20 93/66 96 Room Air 98.2 Physical Exam Physical Exam bilat temporal nela holes covered with gauze General: Alert, Oriented X3, Cooperative, No acute distress Heart: Regular rate, Normal S1 Lungs: Clear, Other Abdomen: Normal bowel sounds, Soft, No tenderness Extremities: No clubbing, No edema Skin: No breakdown Labs LABS Laboratory Tests Test 07/02/16 04:55 Prothrombin Time 32.1SEC (11.7-14.0) Prothromb Time International Ratio 3.3 (0.8-1.1) Review of Systems Review of Systems neg Assessment and Plan Assessmemt and Plan dc once medicaid has been approved Neurosx ff up 1 week Problems Medical Problems: (1) Subdural hematoma Status: Acute (2) Supratherapeutic INR Status: Acute Problems: Comment Review of Relevant I have reviewed the following items jordy (where applicable) has been applied. Labs Laboratory Tests Test 07/01/16 04:30 07/02/16 04:55 Prothrombin Time 27.7SEC (11.7-14.0) 32.1SEC (11.7-14.0) Prothromb Time International Ratio 2.8 (0.8-1.1) 3.3 (0.8-1.1) Laboratory Tests Test 07/02/16 04:55 Prothrombin Time 32.1SEC (11.7-14.0) Prothromb Time International Ratio 3.3 (0.8-1.1) Microbiology 06/13/16 Urine Culture - Final, Complete 06/13/16 Urine Culture Result 1 (GLENN) - Final, Complete Medications Current Medications Sodium Chloride (Iv Sodium Chloride 0.9% 1000ml Bag) 1,000 ml @ 100 mls/hr 1X ONCE IV Last administered on 06/13/16 13:45; Start 06/13/16 at 13:45; Stop at 23:44; Status DC Phytonadione (Mephyton) 10 mg 1X ONCE PO Last administered on 06/13/16 15:03; Start 06/13/16 at 15:00; Stop 06/13/16 at 15:01; Status DC Ondansetron HCl 4 mg 4 mg PRN Q8HRS PRN IV NAUSEA/VOMITING; Start 06/13/16 at 16 :15; Stop 06/14/16 at 16:14; Status DC Sodium Chloride (Iv Sodium Chloride 0.9% 1000ml Bag) 1,000 ml @ 100 mls/hr Q10H IV Last administered on 06/14/16 05:49; Start 06/13/16 at 16:10; Stop at 13:20; Status DC Morphine Sulfate 2 mg 1X ONCE IV Last administered on 06/13/16 18:08; Start at 18:30; Stop 06/13/16 at 18:31; Status DC Oxycodone/ Acetaminophen (Percocet 5/325) 1 tab PRN Q4HRS PRN PO MILD-MOD PAIN Last administered on 06/28/16 22:28; Start 06/13/16 at 18:00 Oxycodone/ Acetaminophen (Percocet 5/325) 2 tab PRN Q4HRS PRN PO SEVERE PAIN Last administered on 06/26/16 21:43; Start 06/13/16 at 18:00 Metoprolol Succinate (Toprol Xl) 25 mg DAILY PO Last administered on 06/30/16 08:13; Start 06/14/16 at 09:00; Stop 06/30/16 at 09:09; Status DC Lorazepam 2 mg 2 mg PRN Q4HRS PRN IV ANXIETY / AGITATION Last administered on 14:33; Start 06/13/16 at 19:45 Levetiracetam 500 mg/Sodium Chloride 105 ml @ 400 mls/hr PRN Q12HRS PRN IV SEIZURES; Start 06/13/16 at 19:45; Stop 06/29/16 at 10:20; Status DC Potassium Chloride/Sodium Chloride (KCl 20 Meq-0.45% Nacl) 1,000 ml @ 100 mls/ hr Q10H IV Last administered on 06/17/16 03:24; Start 06/14/16 at 13:30; Stop 06/17/16 at 12:24; Status DC Warfarin Sodium (Coumadin Per Pharmacy) 1 each PRN DAILY PRN MC SEE COMMENTS Last administered on 07/01/16 10:51; Start 06/14/16 at 16:00 Warfarin Sodium 2.5 mg 2.5 mg 1X WARF ONCE PO ; Start 06/14/16 at 17:00; Stop at 17:01; Status Cancel Bacitracin/Sodium Chloride (Iv Sodium Chloride 0.9% 1000ml Bag) 1,000 ml @ 1, 000 mls/hr 1X PERIOP ONCE IRR Last administered on 06/15/16 12:41; Start at 10:00; Stop 06/15/16 at 10:59; Status DC Ondansetron HCl (Zofran) 4 mg PRN Q6HRS PRN IV Nausea; Start 06/15/16 at 10:00; Stop 06/16/16 at 09:59; Status DC Fentanyl Citrate (Fentanyl 2ml Vial) 25 mcg PRN Q5MIN PRN IV MILD PAIN; Start 06/15/16 at 10:00; Stop 06/16/16 at 09:59; Status DC Fentanyl Citrate (Fentanyl 2ml Vial) 50 mcg PRN Q5MIN PRN IV MODERATE PAIN; Start 06/15/16 at 10:00; Stop 06/16/16 at 09:59; Status DC Morphine Sulfate 1 mg 1 mg PRN Q10MIN PRN IV SEVERE PAIN; Start 06/15/16 at 10: 00; Stop 06/16/16 at 09:59; Status DC Lactated Ringer's (Iv Lactated Ringers) 1,000 ml @ 30 mls/hr Q24H IV ; Start at 09:47; Stop 06/15/16 at 21:46; Status DC Lidocaine HCl 2 ml 1X PRN PRN ID IV START; Start 06/15/16 at 10:00; Stop at 09:59; Status DC Hydromorphone HCl (Dilaudid) 0.5 mg PRN Q10MIN PRN IV SEV PAIN,Second choice; Start 06/15/16 at 10:00; Stop 06/16/16 at 09:59; Status DC Prochlorperazine Edisylate (Compazine) 5 mg PACU PRN PRN IV NAUSEA; Start at 10:00; Stop 06/16/16 at 09:59; Status DC Phytonadione (Vitamin K) 2 mg 1X ONCE SQ Last administered on 06/15/16t 11:21; Start 06/15/16 at 09:45; Stop 06/15/16 at 09:57; Status DC Dexamethasone Sodium Phosphate (Decadron) 20 mg STK-MED ONCE .ROUTE ; Start 06/15 at 10:26; Stop 06/15/16 at 10:27; Status DC Ondansetron HCl (Zofran) 4 mg STK-MED ONCE .ROUTE ; Start 06/15/16 at 10:26; Stop 06/15/16 at 10:27; Status DC Rocuronium Russell 50 mg 50 mg STK-MED ONCE .ROUTE ; Start 06/15/16 at 10:26; Stop 06/15/16 at 10:27; Status DC Propofol (Diprivan) 20 ml @ As Directed STK-MED ONCE IV ; Start 06/15/16 at 10:26 ; Stop 06/15/16 at 10:27; Status DC Lidocaine HCl 100 mg STK-MED ONCE .ROUTE ; Start 06/15/16 at 10:26; Stop 06/15/16 at 10:27; Status DC Fentanyl Citrate (Fentanyl 2ml Vial) 100 mcg STK-MED ONCE .ROUTE ; Start at 10:26; Stop 06/15/16 at 10:27; Status DC Thrombin 20,000 unit STK-MED ONCE TP Last administered on 06/15/16t 12:41; Start 06/15/16 at 10:47; Stop 06/15/16 at 10:48; Status DC Gelatin (Gelfoam Size 100) 1 each STK-MED ONCE .ROUTE Last administered on 06/15 12:41; Start 06/15/16 at 10:48; Stop 06/15/16 at 10:49; Status DC Bupivacaine HCl/ Epinephrine Bitart (Sensorcaine-Epi 0.25%-1:069426 Mpf) 30 ml STK-MED ONCE .ROUTE Last administered on 06/15/16 12:41; Start 06/15/16 at 10:48 ; Stop 06/15/16 at 10:49; Status DC Cellulose 1 each STK-MED ONCE .ROUTE ; Start 06/15/16 at 10:49; Stop 06/15/16 at 10:50; Status DC Potassium Chloride 20 meq 20 meq 1X ONCE PO Last administered on 06/15/16 11: 21; Start 06/15/16 at 11:15; Stop 06/15/16 at 11:16; Status DC Cefazolin Sodium/ Dextrose (Ancef 2gm Premix) 50 ml @ 100 mls/hr 1X PREOP PRN IV PER PROTOCOL Last administered on 06/15/16 12:56; Start 06/16/16 at 06:00; Stop 06/16/16 at 18:00; Status DC Ephedrine Sulfate 50 mg STK-MED ONCE IV ; Start 06/15/16 at 13:04; Stop 06/15/16 at 13:05; Status DC Glycopyrrolate (Robinul) 1 mg STK-MED ONCE .ROUTE ; Start 06/15/16 at 13:39; Stop 06/15/16 at 13:40; Status DC Neostigmine Methylsulfate 5 mg STK-MED ONCE .ROUTE ; Start 06/15/16 at 13:39; Stop 06/15/16 at 13:40; Status DC Fentanyl Citrate (Fentanyl 2ml Vial) 100 mcg STK-MED ONCE .ROUTE ; Start at 13:55; Stop 06/15/16 at 13:56; Status DC Sevoflurane (Ultane) 30 ml STK-MED ONCE IH ; Start 06/15/16 at 13:55; Stop at 13:56; Status DC Sevoflurane (Ultane) 60 ml STK-MED ONCE IH ; Start 06/15/16 at 13:55; Stop at 13:56; Status DC Warfarin Sodium (Coumadin - No Dose Today) 1 each 1X WARF ONCE MC Last administered on 06/15/16 16:00; Start 06/15/16 at 16:00; Stop 06/15/16 at 16:01; Status DC Cefazolin Sodium/ Dextrose (Ancef 2gm Premix) 2 gm STK-MED ONCE IV ; Start at 13:00; Stop 06/16/16 at 08:05; Status DC Famotidine (Pepcid) 20 mg BID IVP ; Start 06/16/16 at 21:00; Stop 06/16/16 at 21 :00; Status DC Famotidine (Pepcid) 20 mg BID PO Last administered on 07/01/16 21:24; Start at 13:00 Warfarin Sodium (Coumadin) 5 mg 1X WARF ONCE PO Last administered on 18:15; Start 06/17/16 at 16:00; Stop 06/17/16 at 16:01; Status DC Warfarin Sodium (Coumadin) 7.5 mg 1X WARF ONCE PO Last administered on 16:25; Start 06/18/16 at 16:00; Stop 06/18/16 at 16:01; Status DC Ondansetron HCl (Zofran) 4 mg PRN Q6HRS PRN IV NAUSEA/VOMITING Last administered on 06/28/16 03:05; Start 06/19/16 at 03:00 Morphine Sulfate 2 mg PRN Q2HR PRN IV PAIN Last administered on 06/20/16 08:06 ; Start 06/19/16 at 03:00; Stop 06/20/16 at 10:14; Status DC Warfarin Sodium 7.5 mg 7.5 mg 1X WARF ONCE PO ; Start 06/19/16 at 16:00; Stop 06/19/16 at 16:01; Status DC Amino Acids/ Glycerin/ Electrolytes (Procalamine) 1,000 ml @ 75 mls/hr [id number] IV Last administered on 06/23/16 01:06; Start 06/19/16 at 16:15; Stop at 10:24; Status DC Fentanyl Citrate (Fentanyl 2ml Vial) 50 mcg Q6HRS PRN IM BREAKTHROUGH PAIN; Start 06/20/16 at 10:15; Stop 06/20/16 at 11:08; Status DC Fentanyl Citrate (Fentanyl 2ml Vial) 50 mcg PRN Q6HRS PRN IV BREAKTHROUGH PAIN Last administered on 06/22/16 22:11; Start 06/20/16 at 11:15 Warfarin Sodium (Coumadin) 7.5 mg 1X WARF ONCE PO ; Start 06/20/16 at 16:00; Stop 06/20/16 at 16:01; Status DC Enoxaparin Sodium (Lovenox Per Pharmacy Treatment Dosing) 1 each PRN DAILY PRN MC SEE COMMENTS; Start 06/21/16 at 12:30; Stop 06/22/16 at 12:29; Status DC Enoxaparin Sodium 60 mg 60 mg Q12HR SQ Last administered on 06/22/16 21:13; Start 06/21/16 at 13:00; Stop 06/23/16 at 10:24; Status DC Bacitracin/Sodium Chloride (Iv Sodium Chloride 0.9% 1000ml Bag) 1,000 ml @ 1, 000 mls/hr 1X PERIOP ONCE IRR ; Start 06/22/16 at 09:00; Stop 06/22/16 at 09:59 ; Status DC Ondansetron HCl (Zofran) 4 mg PRN Q6HRS PRN IV Nausea; Start 06/22/16 at 09:00 ; Stop 06/22/16 at 18:00; Status DC Fentanyl Citrate (Fentanyl 2ml Vial) 25 mcg PRN Q5MIN PRN IV MILD PAIN; Start 06/22/16 at 09:00; Stop 06/22/16 at 18:00; Status DC Fentanyl Citrate (Fentanyl 2ml Vial) 50 mcg PRN Q5MIN PRN IV MODERATE PAIN Last administered on 06/22/16 17:20; Start 06/22/16 at 09:00; Stop 06/22/16 at 18:00; Status DC Morphine Sulfate 1 mg 1 mg PRN Q10MIN PRN IV SEVERE PAIN; Start 06/22/16 at 09: 00; Stop 06/22/16 at 18:00; Status DC Lactated Ringer's (Iv Lactated Ringers) 1,000 ml @ 30 mls/hr Q24H IV Last administered on 06/22/16 10:55; Start 06/22/16 at 08:52; Stop 06/22/16 at 20:51 ; Status DC Lidocaine HCl 2 ml 1X PRN PRN ID IV START; Start 06/22/16 at 09:00; Stop at 18:00; Status DC Hydromorphone HCl (Dilaudid) 0.5 mg PRN Q10MIN PRN IV SEV PAIN,Second choice; Start 06/22/16 at 09:00; Stop 06/22/16 at 18:00; Status DC Prochlorperazine Edisylate (Compazine) 5 mg PACU PRN PRN IV NAUSEA; Start 06/22 at 09:00; Stop 06/22/16 at 18:00; Status DC Bupivacaine HCl/ Epinephrine Bitart (Sensorcaine-Epi 0.25%-1:163173 Mpf) 30 ml STK-MED ONCE .ROUTE Last administered on 06/22/16 12:21; Start 06/22/16 at 09: 22; Stop 06/22/16 at 09:23; Status DC Cellulose 1 each STK-MED ONCE .ROUTE ; Start 06/22/16 at 09:22; Stop 06/22/16 at 09:23; Status DC Thrombin 20,000 unit STK-MED ONCE TP Last administered on 06/22/16 12:21; Start 06/22/16 at 09:22; Stop 06/22/16 at 09:23; Status DC Gelatin 1 each 1 each STK-MED ONCE .ROUTE Last administered on 06/22/16 12:21 ; Start 06/22/16 at 09:23; Stop 06/22/16 at 09:24; Status DC Propofol (Diprivan) 20 ml @ As Directed STK-MED ONCE IV ; Start 06/22/16 at 09: 57; Stop 06/22/16 at 09:58; Status DC Lidocaine HCl 100 mg STK-MED ONCE .ROUTE ; Start 06/22/16 at 09:57; Stop at 09:58; Status DC Rocuronium Russell (Zemuron) 50 mg STK-MED ONCE .ROUTE ; Start 06/22/16 at 09:57 ; Stop 06/22/16 at 09:58; Status DC Ondansetron HCl (Zofran) 4 mg STK-MED ONCE .ROUTE ; Start 06/22/16 at 09:58; Stop 06/22/16 at 09:59; Status DC Dexamethasone Sodium Phosphate (Decadron) 20 mg STK-MED ONCE .ROUTE ; Start at 09:58; Stop 06/22/16 at 09:59; Status DC Fentanyl Citrate 100 mcg 100 mcg STK-MED ONCE .ROUTE ; Start 06/22/16 at 09:59; Stop 06/22/16 at 10:00; Status DC Cefazolin Sodium/ Dextrose (Ancef 2gm Premix) 50 ml @ 100 mls/hr 1X PREOP IV Last administered on 06/22/16t 12:37; Start 06/22/16 at 10:15; Stop 06/28/16 at 12:06; Status DC Metoprolol Tartrate (Lopressor) 5 mg STK-MED ONCE .ROUTE ; Start 06/22/16 at 11: 05; Stop 06/22/16 at 11:06; Status DC Metoprolol Tartrate (Lopressor) 5 mg 1X ONCE IVP Last administered on t 11:12; Start 06/22/16 at 11:15; Stop 06/22/16 at 11:16; Status DC Ephedrine Sulfate 50 mg STK-MED ONCE IV ; Start 06/22/16 at 12:11; Stop at 12:12; Status DC Glycopyrrolate (Robinul) 1 mg STK-MED ONCE .ROUTE ; Start 06/22/16 at 12:40; Stop 06/22/16 at 12:41; Status DC Neostigmine Methylsulfate 5 mg STK-MED ONCE .ROUTE ; Start 06/22/16 at 12:40; Stop 06/22/16 at 12:41; Status DC Sevoflurane 60 ml 60 ml STK-MED ONCE IH ; Start 06/22/16 at 13:05; Stop at 13:06; Status DC Cefazolin Sodium/ Sodium Chloride (Ancef/Iv Sodium Chloride 0.9% 50ml) 50 ml @ 100 mls/hr Q8HRS IV Last administered on 06/29/16 06:32; Start 06/22/16 at 23: 00; Stop 06/29/16 at 10:20; Status DC Warfarin Sodium (Coumadin) 7.5 mg 1X WARF ONCE PO Last administered on 17:06; Start 06/23/16 at 16:00; Stop 06/23/16 at 16:01; Status DC Enoxaparin Sodium (Lovenox 60mg Syringe) 60 mg Q12HR SQ Last administered on 08:08; Start 06/24/16 at 21:00; Stop 06/30/16 at 09:09; Status DC Warfarin Sodium (Coumadin) 7.5 mg 1X WARF ONCE PO Last administered on 15:35; Start 06/24/16 at 16:00; Stop 06/24/16 at 16:01; Status DC Warfarin Sodium (Coumadin) 5 mg 1X WARF ONCE PO Last administered on 16:49; Start 06/25/16 at 16:00; Stop 06/25/16 at 16:01; Status DC Alprazolam (Xanax) 0.25 mg PRN Q6HRS PRN PO ANXIETY / AGITATION Last administered on 06/29/16 00:15; Start 06/26/16 at 08:00 Potassium Chloride (Klor-Con) 20 meq BID PO Last administered on 06/26/16 20: 06; Start 06/26/16 at 10:15; Stop 06/26/16 at 23:55; Status DC Warfarin Sodium 6 mg 6 mg 1X WARF ONCE PO Last administered on 06/26/16 16:19 ; Start 06/26/16 at 16:00; Stop 06/26/16 at 16:01; Status DC Sodium Chloride (Iv Sodium Chloride 0.9% 1000ml Bag) 1,000 ml @ 75 mls/hr 1X ONCE IV Last administered on 06/27/16 10:26; Start 06/27/16 at 10:15; Stop at 23:34; Status DC Info (Anti-Coagulation Monitoring By Pharmacy) 1 each PRN DAILY PRN MC SEE COMMENTS Last administered on 06/27/16 14:33; Start 06/27/16 at 14:30; Stop at 10:43; Status DC Warfarin Sodium (Coumadin) 7.5 mg 1X WARF ONCE PO Last administered on 16:29; Start 06/27/16 at 16:00; Stop 06/27/16 at 16:01; Status DC Polyethylene Glycol (miraLAX PACKET) 17 gm PRN BID PRN PO CONSTIPATION Last administered on 06/28/16 13:49; Start 06/28/16 at 12:30; Stop 06/29/16 at 10:20 ; Status DC Bisacodyl (Dulcolax Supp) 10 mg PRN DAILY PRN GA CONSTIPATION Last administered on 06/28/16 14:24; Start 06/28/16 at 13:45 Warfarin Sodium (Coumadin) 7.5 mg 1X WARF ONCE PO Last administered on 17:32; Start 06/28/16 at 16:00; Stop 06/28/16 at 16:01; Status DC Polyethylene Glycol (miraLAX PACKET) 17 gm DAILY PO ; Start 06/28/16 at 15:00; Stop 06/29/16 at 10:20; Status DC Loperamide HCl (Imodium) 2 mg PRN Q15MIN PRN PO DIARRHEA; Start 06/29/16 at 10: 30 Levetiracetam (Keppra) 500 mg BID PO Last administered on 07/01/16 21:24; Start 06/29/16 at 11:00 Warfarin Sodium (Coumadin) 6 mg 1X WARF ONCE PO Last administered on 17:21; Start 06/29/16 at 16:00; Stop 06/29/16 at 16:01; Status DC Metoprolol Tartrate (Lopressor) 12.5 mg BID PO ; Start 07/01/16 at 09:00 Warfarin Sodium (Coumadin) 8 mg 1X WARF ONCE PO Last administered on 17:07; Start 06/30/16 at 16:00; Stop 06/30/16 at 16:01; Status DC Warfarin Sodium (Coumadin) 7.5 mg 1X WARF ONCE PO Last administered on 17:47; Start 07/01/16 at 16:00; Stop 07/01/16 at 16:01; Status DC Active Scripts Active Reported Coumadin (Warfarin Sodium) 5 Mg Tablet 1 Tab PO DAILY Metoprolol Succinate ( Xl ) (Metoprolol Succinate) 25 Mg Tab.er.24h 25 Mg PO DAILY Vitals/I & O Vital Sign - Last 24 Hours 07/01/16 07/01/16 07/01/16 07/01/16 08:57 11:07 15:15 19:20 Temp 98.0 98.0 97.9 98.0 98.0 97.9 Pulse 73 74 79 77 Resp 18 18 18 B/P 95/62 108/65 98/56 94/59 Pulse Ox 95 96 95 O2 Delivery Room Air Room Air Room Air 07/01/16 07/01/16 07/01/16 07/02/16 19:35 21:25 23:27 03:15 Temp 98.4 98.1 98.4 98.1 Pulse 77 63 76 Resp 18 B/P 94/59 102/64 95/60 Pulse Ox 98 95 O2 Delivery Room Air Room Air Room Air 07/02/16 07:15 Temp 98.2 98.2 Pulse 75 Resp 20 B/P 93/66 Pulse Ox 96 O2 Delivery Room Air Intake and Output 07/01/16 07/01/16 07/02/16 15:00 23:00 07:00 Intake Total 640 ml 240 ml 100 ml Output Total 2 ml Balance 640 ml 240 ml 98 ml DANILO PIZANO MD Jul 02, 2016 07:59
--- NOTE | 2016-07-02 08:04 | PDOC3 ---
Discharge Summary Visit Information Date of Admission: Jun 13, 2016 Date of Discharge: Jul 02, 2016 Admitting Diagnosis Comment: 1. . Marfans syndrome 1. Acute, nontraumatic bilateral subdural hematomas: s/p bilat nela holes on 06/13, 06/16. 06/23. 2. Metabolic encephalopathy: improved, 3. Marfan's syndrome; with hx of aortic and mitral valve replacements 4. Chronic anticoag (for AVR): coumadin restarted, 5. HTN: well controlled 6. Dysphagia: resolved. 7. L eye blindness: chronic Final Diagnosis Problems Medical Problems: (1) Subdural hematoma Status: Acute (2) Supratherapeutic INR Status: Acute Brief Hospital Course Allergies Allergies Coded Allergies Type Severity Reaction Last Updated Verified No Known Drug Allergies 06/13/16 No Vital Signs Vital Signs Date Time Temp Pulse Resp B/P Pulse Ox O2 Delivery O2 Flow Rate FiO2 07/02/16 07:15 98.2 75 20 93/66 96 Room Air 98.2 Lab Results Laboratory Tests Test 07/01/16 04:30 07/02/16 04:55 Prothrombin Time 27.7SEC (11.7-14.0) 32.1SEC (11.7-14.0) Prothromb Time International Ratio 2.8 (0.8-1.1) 3.3 (0.8-1.1) Laboratory Tests Test 07/02/16 04:55 Prothrombin Time 32.1SEC (11.7-14.0) Prothromb Time International Ratio 3.3 (0.8-1.1) Brief Hospital Course Mr. Fraga is a 50 old male with marfans on AC bec of heart valve replacements, had spontaneosus, non traumatic subdural, needed evacn of bleed by neurosx, tolerated proc well. Course remarkable for some encephalopathy and dysphagia now both resolved,. Coumadin restarted as warranted sec to his heart valve condition and marfans. doing well. NEeds pT but is uninsured. Once medicad done will go t rehab Pt seen and examined 2 notes todayDw RN, case Dispso: snu proc: nela hole evacuation x 2 Discharge Information Condition at Discharge: Improved, Stable Disposition/Orders: Other (snf) Scheduled Metoprolol Succinate (Metoprolol Succinate ( Xl )) 25 MG PO DAILY (Reported) Warfarin Sodium (Coumadin) 1 TAB PO DAILY (Reported) DANILO PIZANO MD Jul 02, 2016 08:04
[2016-07-02] MEDS: LEVETIRACETAM 500 MG TABLET PO SCH ×2 (08:31→21:08)
[2016-07-02] MEDS: FAMOTIDINE 20 MG TABLET. PO SCH ×2 (08:31→21:08)
[2016-07-02] MEDS: METOPROLOL TART IMMED RELEASE 25 MG TABLET PO SCH ×2 (08:32→21:00)
[2016-07-02 11:15] VITALS: BP 92/60
--- NOTE | 2016-07-02 13:47 | PDOC ---
PROGRESS NOTES Assessment Assessment Bilateral SDH, status post bilateral nela holes. Headache, improved. Metabolic encephalopathy Marfan's syndrome, s/p aortic and mitral valve replacements. Left eye vision loss. RECOMMENDATIONS/PLAN: Keppra if has seizures. Avoid anticoagulants. Discuss with Cardiology and PCP about anticoagulant issues. OT/PT. Rehab. FU with NS. FU with Neurology. FU with Cardiology. FU with PCP. SUBJECTIVE: Headaches resolved. OBJECTIVE: No new neurological deficits. PAST MEDICAL AND SURGICAL HISTORY: Please see H&P ALLERGY: Reviewed. MEDICATIONS: Refer to [facility] REVIEW OF SYSTEMS: Constitutional: No cachexia. Head: No recent traumatic brain or head injury. Skin: No edema, or rash. Ear: No infection, tinnitus. Eyes: No vision loss, or diplopia. Nose: No bleeding or purulent discharges. Hearing: No hearing decrease. Neck: No injury. Cardiac: Marfan's syndrome. Pulmonary: No COPD. GI: No GI Ulcer, GI bleeding Urinary/genital: No dysuria, hematuria, incontinence, urinary retention. Endocrine: No cousin face, craniofacial dysmorphism, polydactyly Skeletomuscular: No muscular atrophy. Neurological: see HP. Psychiatric: Denies drug use/abuse. Otherwise, not [id number] review of systems. PHYSICAL EXAMINATION: General appearance in no acute distress. HEENT: Normocephalic and nontraumatic. Eyes, nose, ears, and throat are unremarkable. Hearing decrease. Neck is supple. No lymphadenopathy. No bruits are heard over the carotid artery. No Crepitus. Cardiovascular: S1, S2, regular rate and rhythm. Pulmonary: Clear to auscultation bilaterally. Abdomen: Bowel sounds are positive. Extremities: No rash, lesions, or edema. No restriction of range of motion NEUROLOGICAL EXAMINATION: Alert. Oriented to time, place and person. PERRL. EOMI. CN: no focal findings. Muscle tone: within normal. Muscle strength: 5- DTR: 2 Plantar reflex: Neutral response bilaterally Gait: able to walk with a walker. Sensory exam: no abnormal findings. No obvious cerebellar signs elicited. F-T-N test fine. Objective Objective Vital Signs Date Time Temp Pulse Resp B/P Pulse Ox O2 Delivery O2 Flow Rate FiO2 07/02/16 11:15 97.6 71 18 92/60 96 Room Air 97.6 Intake and Output 07/02/16 07:00 Intake Total 980 ml Output Total 2 ml Balance 978 ml Intake Oral 980 ml Output Urine Total 2 ml # Voids 3 Vitals Signs Vitals VS - Last 72 Hours, by Label Date Time Temp Pulse Resp B/P Pulse Ox O2 Delivery O2 Flow Rate FiO2 07/02/16 11:15 97.6 71 18 92/60 96 Room Air 97.6 07/02/16 08:32 75 93/66 07/02/16 08:05 Room Air 07/02/16 07:15 98.2 75 20 93/66 96 Room Air 98.2 07/02/16 03:15 98.1 76 18 95/60 95 Room Air 98.1 07/01/16 23:27 98.4 63 18 102/64 98 Room Air 98.4 07/01/16 21:25 77 94/59 07/01/16 19:35 Room Air 07/01/16 19:20 97.9 77 18 94/59 95 Room Air 97.9 07/01/16 15:15 98.0 79 18 98/56 96 Room Air 98.0 07/01/16 11:07 98.0 74 18 108/65 95 Room Air 98.0 07/01/16 08:57 73 95/62 07/01/16 07:40 Room Air 07/01/16 07:15 98.1 73 16 95/62 96 Room Air 98.1 Laboratory Laboratory Laboratory Tests Test 07/02/16 04:55 Prothrombin Time 32.1SEC (11.7-14.0) Prothromb Time International Ratio 3.3 (0.8-1.1) Microbiology 06/13/16 Urine Culture - Final, Complete 06/13/16 Urine Culture Result 1 (GLENN) - Final, Complete Medication Medications Current Medications Warfarin Sodium (Coumadin) 6 mg 1X WARF ONCE PO ; Start 07/02/16 at 16:00; Stop 07/02/16 at 16:01 Warfarin Sodium (Coumadin) 7.5 mg 1X WARF ONCE PO Last administered on t 17:47; Start 07/01/16 at 16:00; Stop 07/01/16 at 16:01; Status DC Comment Review of Relevant I have reviewed the following items jordy (where applicable) has been applied. SHANEKA GOSS MD Jul 02, 2016 13:47
[2016-07-02 15:03] VITALS: BP 103/60
[2016-07-02] MEDS ORDERED: WARFARIN 6 MG TABLET. PO ONE (16:00)
[2016-07-02 19:00] VITALS: BP 107/67
[2016-07-02] MEDS: ALPRAZOLAM 0.25 MG TABLET PO PRN (21:14)
[2016-07-02 23:28] VITALS: BP 119/68
[2016-07-03 03:31] VITALS: BP 92/49
[2016-07-03 05:45] LABS: INR 3.6 (0.8-1.1); PROTHROMBIN TIME PATIENT 34.3 SEC (11.7-14.0)
[2016-07-03 07:00] VITALS: BP 106/58
[2016-07-03] MEDS: METOPROLOL TART IMMED RELEASE 25 MG TABLET PO SCH ×2 (09:00→21:00)
--- NOTE | 2016-07-03 09:01 | PDOC ---
PROGRESS NOTES Chief Complaint Chief Complaint 1. . Marfans syndrome 1. Acute, nontraumatic bilateral subdural hematomas: s/p bilat nela holes on 06/13, 06/16. 06/23. 2. Metabolic encephalopathy: improved, 3. Marfan's syndrome; with hx of aortic and mitral valve replacements 4. Chronic anticoag (for AVR): coumadin restarted, 5. HTN: well controlled 6. Dysphagia: resolved. 7. L eye blindness: chronic History of Present Illness History of Present Illness NO med issues Dw SW - still working on medicaid Will ff up with neurosx for removal of navid in about a week Vitals Vitals Vital Signs Date Time Temp Pulse Resp B/P Pulse Ox O2 Delivery O2 Flow Rate FiO2 07/03/16 07:00 97.7 81 18 106/58 96 Room Air 97.7 Physical Exam Physical Exam bilat temporal nela holes covered with gauze General: Alert, Oriented X3, Cooperative, No acute distress Heart: Regular rate, Normal S1 Lungs: Clear, Other Abdomen: Normal bowel sounds, Soft, No tenderness Extremities: No clubbing, No edema Skin: No breakdown Labs LABS Laboratory Tests Test 07/03/16 04:40 Prothrombin Time 34.3SEC (11.7-14.0) Prothromb Time International Ratio 3.6 (0.8-1.1) Review of Systems Review of Systems all 14 pt system reviewed, neg Assessment and Plan Assessmemt and Plan CPM Await medicaid Medically ready to dc - awaiting placement Problems Medical Problems: (1) Subdural hematoma Status: Acute (2) Supratherapeutic INR Status: Acute Problems: Comment Review of Relevant I have reviewed the following items jordy (where applicable) has been applied. Labs Laboratory Tests Test 07/02/16 04:55 07/03/16 04:40 Prothrombin Time 32.1SEC (11.7-14.0) 34.3SEC (11.7-14.0) Prothromb Time International Ratio 3.3 (0.8-1.1) 3.6 (0.8-1.1) Laboratory Tests Test 07/03/16 04:40 Prothrombin Time 34.3SEC (11.7-14.0) Prothromb Time International Ratio 3.6 (0.8-1.1) Microbiology 06/13/16 Urine Culture - Final, Complete 06/13/16 Urine Culture Result 1 (GLENN) - Final, Complete Medications Current Medications Sodium Chloride (Iv Sodium Chloride 0.9% 1000ml Bag) 1,000 ml @ 100 mls/hr 1X ONCE IV Last administered on 06/13/16 13:45; Start 06/13/16 at 13:45; Stop at 23:44; Status DC Phytonadione (Mephyton) 10 mg 1X ONCE PO Last administered on 06/13/16 15:03; Start 06/13/16 at 15:00; Stop 06/13/16 at 15:01; Status DC Ondansetron HCl 4 mg 4 mg PRN Q8HRS PRN IV NAUSEA/VOMITING; Start 06/13/16 at 16 :15; Stop 06/14/16 at 16:14; Status DC Sodium Chloride (Iv Sodium Chloride 0.9% 1000ml Bag) 1,000 ml @ 100 mls/hr Q10H IV Last administered on 06/14/16 05:49; Start 06/13/16 at 16:10; Stop at 13:20; Status DC Morphine Sulfate 2 mg 1X ONCE IV Last administered on 06/13/16 18:08; Start at 18:30; Stop 06/13/16 at 18:31; Status DC Oxycodone/ Acetaminophen (Percocet 5/325) 1 tab PRN Q4HRS PRN PO MILD-MOD PAIN Last administered on 06/28/16 22:28; Start 06/13/16 at 18:00 Oxycodone/ Acetaminophen (Percocet 5/325) 2 tab PRN Q4HRS PRN PO SEVERE PAIN Last administered on 06/26/16 21:43; Start 06/13/16 at 18:00 Metoprolol Succinate (Toprol Xl) 25 mg DAILY PO Last administered on 06/30/16 08:13; Start 06/14/16 at 09:00; Stop 06/30/16 at 09:09; Status DC Lorazepam 2 mg 2 mg PRN Q4HRS PRN IV ANXIETY / AGITATION Last administered on 14:33; Start 06/13/16 at 19:45 Levetiracetam 500 mg/Sodium Chloride 105 ml @ 400 mls/hr PRN Q12HRS PRN IV SEIZURES; Start 06/13/16 at 19:45; Stop 06/29/16 at 10:20; Status DC Potassium Chloride/Sodium Chloride (KCl 20 Meq-0.45% Nacl) 1,000 ml @ 100 mls/ hr Q10H IV Last administered on 06/17/16 03:24; Start 06/14/16 at 13:30; Stop 06/17/16 at 12:24; Status DC Warfarin Sodium (Coumadin Per Pharmacy) 1 each PRN DAILY PRN MC SEE COMMENTS Last administered on 07/02/16 12:49; Start 06/14/16 at 16:00 Warfarin Sodium 2.5 mg 2.5 mg 1X WARF ONCE PO ; Start 06/14/16 at 17:00; Stop at 17:01; Status Cancel Bacitracin/Sodium Chloride (Iv Sodium Chloride 0.9% 1000ml Bag) 1,000 ml @ 1, 000 mls/hr 1X PERIOP ONCE IRR Last administered on 06/15/16 12:41; Start at 10:00; Stop 06/15/16 at 10:59; Status DC Ondansetron HCl (Zofran) 4 mg PRN Q6HRS PRN IV Nausea; Start 06/15/16 at 10:00; Stop 06/16/16 at 09:59; Status DC Fentanyl Citrate (Fentanyl 2ml Vial) 25 mcg PRN Q5MIN PRN IV MILD PAIN; Start 06/15/16 at 10:00; Stop 06/16/16 at 09:59; Status DC Fentanyl Citrate (Fentanyl 2ml Vial) 50 mcg PRN Q5MIN PRN IV MODERATE PAIN; Start 06/15/16 at 10:00; Stop 06/16/16 at 09:59; Status DC Morphine Sulfate 1 mg 1 mg PRN Q10MIN PRN IV SEVERE PAIN; Start 06/15/16 at 10: 00; Stop 06/16/16 at 09:59; Status DC Lactated Ringer's (Iv Lactated Ringers) 1,000 ml @ 30 mls/hr Q24H IV ; Start at 09:47; Stop 06/15/16 at 21:46; Status DC Lidocaine HCl 2 ml 1X PRN PRN ID IV START; Start 06/15/16 at 10:00; Stop at 09:59; Status DC Hydromorphone HCl (Dilaudid) 0.5 mg PRN Q10MIN PRN IV SEV PAIN,Second choice; Start 06/15/16 at 10:00; Stop 06/16/16 at 09:59; Status DC Prochlorperazine Edisylate (Compazine) 5 mg PACU PRN PRN IV NAUSEA; Start at 10:00; Stop 06/16/16 at 09:59; Status DC Phytonadione (Vitamin K) 2 mg 1X ONCE SQ Last administered on 06/15/16 11:21; Start 06/15/16 at 09:45; Stop 06/15/16 at 09:57; Status DC Dexamethasone Sodium Phosphate (Decadron) 20 mg STK-MED ONCE .ROUTE ; Start 06/15 at 10:26; Stop 06/15/16 at 10:27; Status DC Ondansetron HCl (Zofran) 4 mg STK-MED ONCE .ROUTE ; Start 06/15/16 at 10:26; Stop 06/15/16 at 10:27; Status DC Rocuronium [place] 50 mg 50 mg STK-MED ONCE .ROUTE ; Start 06/15/16 at 10:26; Stop 06/15/16 at 10:27; Status DC Propofol (Diprivan) 20 ml @ As Directed STK-MED ONCE IV ; Start 06/15/16 at 10:26 ; Stop 06/15/16 at 10:27; Status DC Lidocaine HCl 100 mg STK-MED ONCE .ROUTE ; Start 06/15/16 at 10:26; Stop 06/15/16 at 10:27; Status DC Fentanyl Citrate (Fentanyl 2ml Vial) 100 mcg STK-MED ONCE .ROUTE ; Start at 10:26; Stop 06/15/16 at 10:27; Status DC Thrombin 20,000 unit STK-MED ONCE TP Last administered on 06/15/16 12:41; Start 06/15/16 at 10:47; Stop 06/15/16 at 10:48; Status DC Gelatin (Gelfoam Size 100) 1 each STK-MED ONCE .ROUTE Last administered on 06/15 12:41; Start 06/15/16 at 10:48; Stop 06/15/16 at 10:49; Status DC Bupivacaine HCl/ Epinephrine Bitart (Sensorcaine-Epi 0.25%-1:906154 Mpf) 30 ml STK-MED ONCE .ROUTE Last administered on 06/15/16t 12:41; Start 06/15/16 at 10:48 ; Stop 06/15/16 at 10:49; Status DC Cellulose 1 each STK-MED ONCE .ROUTE ; Start 06/15/16 at 10:49; Stop 06/15/16 at 10:50; Status DC Potassium Chloride 20 meq 20 meq 1X ONCE PO Last administered on 06/15/16 11: 21; Start 06/15/16 at 11:15; Stop 06/15/16 at 11:16; Status DC Cefazolin Sodium/ Dextrose (Ancef 2gm Premix) 50 ml @ 100 mls/hr 1X PREOP PRN IV PER PROTOCOL Last administered on 06/15/16 12:56; Start 06/16/16 at 06:00; Stop 06/16/16 at 18:00; Status DC Ephedrine Sulfate 50 mg STK-MED ONCE IV ; Start 06/15/16 at 13:04; Stop 06/15/16 at 13:05; Status DC Glycopyrrolate (Robinul) 1 mg STK-MED ONCE .ROUTE ; Start 06/15/16 at 13:39; Stop 06/15/16 at 13:40; Status DC Neostigmine Methylsulfate 5 mg STK-MED ONCE .ROUTE ; Start 06/15/16 at 13:39; Stop 06/15/16 at 13:40; Status DC Fentanyl Citrate (Fentanyl 2ml Vial) 100 mcg STK-MED ONCE .ROUTE ; Start at 13:55; Stop 06/15/16 at 13:56; Status DC Sevoflurane (Ultane) 30 ml STK-MED ONCE IH ; Start 06/15/16 at 13:55; Stop at 13:56; Status DC Sevoflurane (Ultane) 60 ml STK-MED ONCE IH ; Start 06/15/16 at 13:55; Stop at 13:56; Status DC Warfarin Sodium (Coumadin - No Dose Today) 1 each 1X WARF ONCE MC Last administered on 06/15/16 16:00; Start 06/15/16 at 16:00; Stop 06/15/16 at 16:01; Status DC Cefazolin Sodium/ Dextrose (Ancef 2gm Premix) 2 gm STK-MED ONCE IV ; Start at 13:00; Stop 06/16/16 at 08:05; Status DC Famotidine (Pepcid) 20 mg BID IVP ; Start 06/16/16 at 21:00; Stop 06/16/16 at 21 :00; Status DC Famotidine (Pepcid) 20 mg BID PO Last administered on 07/02/16 21:08; Start at 13:00 Warfarin Sodium (Coumadin) 5 mg 1X WARF ONCE PO Last administered on 18:15; Start 06/17/16 at 16:00; Stop 06/17/16 at 16:01; Status DC Warfarin Sodium (Coumadin) 7.5 mg 1X WARF ONCE PO Last administered on 16:25; Start 06/18/16 at 16:00; Stop 06/18/16 at 16:01; Status DC Ondansetron HCl (Zofran) 4 mg PRN Q6HRS PRN IV NAUSEA/VOMITING Last administered on 06/28/16 03:05; Start 06/19/16 at 03:00 Morphine Sulfate 2 mg PRN Q2HR PRN IV PAIN Last administered on 06/20/16 08:06 ; Start 06/19/16 at 03:00; Stop 06/20/16 at 10:14; Status DC Warfarin Sodium 7.5 mg 7.5 mg 1X WARF ONCE PO ; Start 06/19/16 at 16:00; Stop 06/19/16 at 16:01; Status DC Amino Acids/ Glycerin/ Electrolytes (Procalamine) 1,000 ml @ 75 mls/hr [id number] IV Last administered on 06/23/16 01:06; Start 06/19/16 at 16:15; Stop at 10:24; Status DC Fentanyl Citrate (Fentanyl 2ml Vial) 50 mcg Q6HRS PRN IM BREAKTHROUGH PAIN; Start 06/20/16 at 10:15; Stop 06/20/16 at 11:08; Status DC Fentanyl Citrate (Fentanyl 2ml Vial) 50 mcg PRN Q6HRS PRN IV BREAKTHROUGH PAIN Last administered on 06/22/16 22:11; Start 06/20/16 at 11:15 Warfarin Sodium (Coumadin) 7.5 mg 1X WARF ONCE PO ; Start 06/20/16 at 16:00; Stop 06/20/16 at 16:01; Status DC Enoxaparin Sodium (Lovenox Per Pharmacy Treatment Dosing) 1 each PRN DAILY PRN MC SEE COMMENTS; Start 06/21/16 at 12:30; Stop 06/22/16 at 12:29; Status DC Enoxaparin Sodium 60 mg 60 mg Q12HR SQ Last administered on 06/22/16 21:13; Start 06/21/16 at 13:00; Stop 06/23/16 at 10:24; Status DC Bacitracin/Sodium Chloride (Iv Sodium Chloride 0.9% 1000ml Bag) 1,000 ml @ 1, 000 mls/hr 1X PERIOP ONCE IRR ; Start 06/22/16 at 09:00; Stop 06/22/16 at 09:59 ; Status DC Ondansetron HCl (Zofran) 4 mg PRN Q6HRS PRN IV Nausea; Start 06/22/16 at 09:00 ; Stop 06/22/16 at 18:00; Status DC Fentanyl Citrate (Fentanyl 2ml Vial) 25 mcg PRN Q5MIN PRN IV MILD PAIN; Start 06/22/16 at 09:00; Stop 06/22/16 at 18:00; Status DC Fentanyl Citrate (Fentanyl 2ml Vial) 50 mcg PRN Q5MIN PRN IV MODERATE PAIN Last administered on 06/22/16 17:20; Start 06/22/16 at 09:00; Stop 06/22/16 at 18:00; Status DC Morphine Sulfate 1 mg 1 mg PRN Q10MIN PRN IV SEVERE PAIN; Start 06/22/16 at 09: 00; Stop 06/22/16 at 18:00; Status DC Lactated Ringer's (Iv Lactated Ringers) 1,000 ml @ 30 mls/hr Q24H IV Last administered on 06/22/16 10:55; Start 06/22/16 at 08:52; Stop 06/22/16 at 20:51 ; Status DC Lidocaine HCl 2 ml 1X PRN PRN ID IV START; Start 06/22/16 at 09:00; Stop at 18:00; Status DC Hydromorphone HCl (Dilaudid) 0.5 mg PRN Q10MIN PRN IV SEV PAIN,Second choice; Start 06/22/16 at 09:00; Stop 06/22/16 at 18:00; Status DC Prochlorperazine Edisylate (Compazine) 5 mg PACU PRN PRN IV NAUSEA; Start 06/22 at 09:00; Stop 06/22/16 at 18:00; Status DC Bupivacaine HCl/ Epinephrine Bitart (Sensorcaine-Epi 0.25%-1:151667 Mpf) 30 ml STK-MED ONCE .ROUTE Last administered on 06/22/16 12:21; Start 06/22/16 at 09: 22; Stop 06/22/16 at 09:23; Status DC Cellulose 1 each STK-MED ONCE .ROUTE ; Start 06/22/16 at 09:22; Stop 06/22/16 at 09:23; Status DC Thrombin 20,000 unit STK-MED ONCE TP Last administered on 06/22/16 12:21; Start 06/22/16 at 09:22; Stop 06/22/16 at 09:23; Status DC Gelatin 1 each 1 each STK-MED ONCE .ROUTE Last administered on 06/22/16 12:21 ; Start 06/22/16 at 09:23; Stop 06/22/16 at 09:24; Status DC Propofol (Diprivan) 20 ml @ As Directed STK-MED ONCE IV ; Start 06/22/16 at 09: 57; Stop 06/22/16 at 09:58; Status DC Lidocaine HCl 100 mg STK-MED ONCE .ROUTE ; Start 06/22/16 at 09:57; Stop at 09:58; Status DC Rocuronium [place] (Zemuron) 50 mg STK-MED ONCE .ROUTE ; Start 06/22/16 at 09:57 ; Stop 06/22/16 at 09:58; Status DC Ondansetron HCl (Zofran) 4 mg STK-MED ONCE .ROUTE ; Start 06/22/16 at 09:58; Stop 06/22/16 at 09:59; Status DC Dexamethasone Sodium Phosphate (Decadron) 20 mg STK-MED ONCE .ROUTE ; Start at 09:58; Stop 06/22/16 at 09:59; Status DC Fentanyl Citrate 100 mcg 100 mcg STK-MED ONCE .ROUTE ; Start 06/22/16 at 09:59; Stop 06/22/16 at 10:00; Status DC Cefazolin Sodium/ Dextrose (Ancef 2gm Premix) 50 ml @ 100 mls/hr 1X PREOP IV Last administered on 06/22/16 12:37; Start 06/22/16 at 10:15; Stop 06/28/16 at 12:06; Status DC Metoprolol Tartrate (Lopressor) 5 mg STK-MED ONCE .ROUTE ; Start 06/22/16 at 11: 05; Stop 06/22/16 at 11:06; Status DC Metoprolol Tartrate (Lopressor) 5 mg 1X ONCE IVP Last administered on 11:12; Start 06/22/16 at 11:15; Stop 06/22/16 at 11:16; Status DC Ephedrine Sulfate 50 mg STK-MED ONCE IV ; Start 06/22/16 at 12:11; Stop at 12:12; Status DC Glycopyrrolate (Robinul) 1 mg STK-MED ONCE .ROUTE ; Start 06/22/16 at 12:40; Stop 06/22/16 at 12:41; Status DC Neostigmine Methylsulfate 5 mg STK-MED ONCE .ROUTE ; Start 06/22/16 at 12:40; Stop 06/22/16 at 12:41; Status DC Sevoflurane 60 ml 60 ml STK-MED ONCE IH ; Start 06/22/16 at 13:05; Stop at 13:06; Status DC Cefazolin Sodium/ Sodium Chloride (Ancef/Iv Sodium Chloride 0.9% 50ml) 50 ml @ 100 mls/hr Q8HRS IV Last administered on 06/29/16 06:32; Start 06/22/16 at 23: 00; Stop 06/29/16 at 10:20; Status DC Warfarin Sodium (Coumadin) 7.5 mg 1X WARF ONCE PO Last administered on 17:06; Start 06/23/16 at 16:00; Stop 06/23/16 at 16:01; Status DC Enoxaparin Sodium (Lovenox 60mg Syringe) 60 mg Q12HR SQ Last administered on 08:08; Start 06/24/16 at 21:00; Stop 06/30/16 at 09:09; Status DC Warfarin Sodium (Coumadin) 7.5 mg 1X WARF ONCE PO Last administered on 15:35; Start 06/24/16 at 16:00; Stop 06/24/16 at 16:01; Status DC Warfarin Sodium (Coumadin) 5 mg 1X WARF ONCE PO Last administered on 16:49; Start 06/25/16 at 16:00; Stop 06/25/16 at 16:01; Status DC Alprazolam (Xanax) 0.25 mg PRN Q6HRS PRN PO ANXIETY / AGITATION Last administered on 07/02/16 21:14; Start 06/26/16 at 08:00 Potassium Chloride (Klor-Con) 20 meq BID PO Last administered on 06/26/16 20: 06; Start 06/26/16 at 10:15; Stop 06/26/16 at 23:55; Status DC Warfarin Sodium 6 mg 6 mg 1X WARF ONCE PO Last administered on 06/26/16 16:19 ; Start 06/26/16 at 16:00; Stop 06/26/16 at 16:01; Status DC Sodium Chloride (Iv Sodium Chloride 0.9% 1000ml Bag) 1,000 ml @ 75 mls/hr 1X ONCE IV Last administered on 06/27/16 10:26; Start 06/27/16 at 10:15; Stop at 23:34; Status DC Info (Anti-Coagulation Monitoring By Pharmacy) 1 each PRN DAILY PRN MC SEE COMMENTS Last administered on 06/27/16 14:33; Start 06/27/16 at 14:30; Stop at 10:43; Status DC Warfarin Sodium (Coumadin) 7.5 mg 1X WARF ONCE PO Last administered on 16:29; Start 06/27/16 at 16:00; Stop 06/27/16 at 16:01; Status DC Polyethylene Glycol (miraLAX PACKET) 17 gm PRN BID PRN PO CONSTIPATION Last administered on 06/28/16 13:49; Start 06/28/16 at 12:30; Stop 06/29/16 at 10:20 ; Status DC Bisacodyl (Dulcolax Supp) 10 mg PRN DAILY PRN [place] CONSTIPATION Last administered on 06/28/16 14:24; Start 06/28/16 at 13:45 Warfarin Sodium (Coumadin) 7.5 mg 1X WARF ONCE PO Last administered on 17:32; Start 06/28/16 at 16:00; Stop 06/28/16 at 16:01; Status DC Polyethylene Glycol (miraLAX PACKET) 17 gm DAILY PO ; Start 06/28/16 at 15:00; Stop 06/29/16 at 10:20; Status DC Loperamide HCl (Imodium) 2 mg PRN Q15MIN PRN PO DIARRHEA; Start 06/29/16 at 10: 30 Levetiracetam (Keppra) 500 mg BID PO Last administered on 07/02/16 21:08; Start 06/29/16 at 11:00 Warfarin Sodium (Coumadin) 6 mg 1X WARF ONCE PO Last administered on 17:21; Start 06/29/16 at 16:00; Stop 06/29/16 at 16:01; Status DC Metoprolol Tartrate (Lopressor) 12.5 mg BID PO ; Start 07/01/16 at 09:00 Warfarin Sodium (Coumadin) 8 mg 1X WARF ONCE PO Last administered on 17:07; Start 06/30/16 at 16:00; Stop 06/30/16 at 16:01; Status DC Warfarin Sodium (Coumadin) 7.5 mg 1X WARF ONCE PO Last administered on 17:47; Start 07/01/16 at 16:00; Stop 07/01/16 at 16:01; Status DC Warfarin Sodium (Coumadin) 6 mg 1X WARF ONCE PO Last administered on 16:28; Start 07/02/16 at 16:00; Stop 07/02/16 at 16:01; Status DC Active Scripts Active Reported Coumadin (Warfarin Sodium) 5 Mg Tablet 1 Tab PO DAILY Metoprolol Succinate ( Xl ) (Metoprolol Succinate) 25 Mg Tab.er.24h 25 Mg PO DAILY Vitals/I & O Vital Sign - Last 24 Hours 07/02/16 07/02/16 07/02/16 07/02/16 11:15 15:03 19:00 20:00 Temp 97.6 98.6 99.3 97.6 98.6 99.3 Pulse 71 74 75 Resp 18 B/P 92/60 103/60 107/67 Pulse Ox 96 97 95 O2 Delivery Room Air Room Air Room Air Room Air 07/02/16 07/03/16 07/03/16 23:28 03:31 07:00 Temp 97.5 96.6 97.7 97.5 96.6 97.7 Pulse 75 54 81 Resp 18 B/P 119/68 92/49 106/58 Pulse Ox 97 98 96 O2 Delivery Room Air Room Air Room Air Intake and Output 07/02/16 07/02/16 07/03/16 15:00 23:00 07:00 Intake Total 360 ml 0 ml Output Total 2 ml Balance 360 ml -2 ml 0 ml DANILO PIZANO MD Jul 03, 2016 09:01
[2016-07-03] MEDS: LEVETIRACETAM 500 MG TABLET PO SCH ×2 (09:08→21:23)
[2016-07-03] MEDS: FAMOTIDINE 20 MG TABLET. PO SCH ×2 (09:08→21:23)
[2016-07-03 11:00] VITALS: BP 89/55
--- NOTE | 2016-07-03 14:24 | PDOC ---
PROGRESS NOTES Assessment Assessment Bilateral SDH, status post bilateral nela holes. Headache, improved. Metabolic encephalopathy Marfan's syndrome, s/p aortic and mitral valve replacements. Left eye vision loss. RECOMMENDATIONS/PLAN: Keppra if has seizures. Avoid anticoagulants. Discuss with Cardiology and PCP about anticoagulant issues. OT/PT. Rehab. FU with NS. FU with Neurology. FU with Cardiology. FU with PCP. Discussed in all detail with his brother at bedside. SUBJECTIVE: Headaches resolved. OBJECTIVE: No new neurological deficits. PAST MEDICAL AND SURGICAL HISTORY: Please see H&P ALLERGY: Reviewed. MEDICATIONS: Refer to [facility] REVIEW OF SYSTEMS: Constitutional: No cachexia. Head: No recent traumatic brain or head injury. Skin: No edema, or rash. Ear: No infection, tinnitus. Eyes: No vision loss, or diplopia. Nose: No bleeding or purulent discharges. Hearing: No hearing decrease. Neck: No injury. Cardiac: Marfan's syndrome. Pulmonary: No COPD. GI: No GI Ulcer, GI bleeding Urinary/genital: No dysuria, hematuria, incontinence, urinary retention. Endocrine: No cousin face, craniofacial dysmorphism, polydactyly Skeletomuscular: No muscular atrophy. Neurological: see HP. Psychiatric: Denies drug use/abuse. Otherwise, not [id number] review of systems. PHYSICAL EXAMINATION: General appearance in no acute distress. HEENT: Normocephalic and nontraumatic. Eyes, nose, ears, and throat are unremarkable. Hearing decrease. Neck is supple. No lymphadenopathy. No bruits are heard over the carotid artery. No Crepitus. Cardiovascular: S1, S2, regular rate and rhythm. Pulmonary: Clear to auscultation bilaterally. Abdomen: Bowel sounds are positive. Extremities: No rash, lesions, or edema. No restriction of range of motion NEUROLOGICAL EXAMINATION: Alert. Oriented to time, place and person. PERRL. EOMI. CN: no focal findings. Muscle tone: within normal. Muscle strength: 5- DTR: 2 Plantar reflex: Neutral response bilaterally Gait: able to walk with a walker. Sensory exam: no abnormal findings. No obvious cerebellar signs elicited. F-T-N test fine. Objective Objective Vital Signs Date Time Temp Pulse Resp B/P Pulse Ox O2 Delivery O2 Flow Rate FiO2 07/03/16 11:00 97.9 82 18 89/55 96 Room Air 97.9 Intake and Output 07/03/16 07:00 Intake Total 360 ml Output Total 2 ml Balance 358 ml Intake Oral 360 ml Output Urine Total 2 ml # Voids 1 Vitals Signs Vitals VS - Last 72 Hours, by Label Date Time Temp Pulse Resp B/P Pulse Ox O2 Delivery O2 Flow Rate FiO2 07/03/16 11:00 97.9 82 18 89/55 96 Room Air 97.9 07/03/16 09:00 81 106/58 07/03/16 08:20 Room Air 07/03/16 07:00 97.7 81 18 106/58 96 Room Air 97.7 07/03/16 03:31 96.6 54 18 92/49 98 Room Air 96.6 07/02/16 23:28 97.5 75 18 119/68 97 Room Air 97.5 07/02/16 20:00 Room Air 07/02/16 19:00 99.3 75 18 107/67 95 Room Air 99.3 07/02/16 15:03 98.6 74 16 103/60 97 Room Air 98.6 07/02/16 11:15 97.6 71 18 92/60 96 Room Air 97.6 07/02/16 08:32 75 93/66 07/02/16 08:05 Room Air 07/02/16 07:15 98.2 75 20 93/66 96 Room Air 98.2 Laboratory Laboratory Laboratory Tests Test 07/03/16 04:40 Prothrombin Time 34.3SEC (11.7-14.0) Prothromb Time International Ratio 3.6 (0.8-1.1) Microbiology 06/13/16 Urine Culture - Final, Complete 06/13/16 Urine Culture Result 1 ([facility]) - Final, Complete Medication Medications Current Medications Warfarin Sodium (Coumadin) 6 mg 1X WARF ONCE PO Last administered on t 16:28; Start 07/02/16 at 16:00; Stop 07/02/16 at 16:01; Status DC Comment Review of Relevant I have reviewed the following items jordy (where applicable) has been applied. SHANEKA GOSS MD Jul 03, 2016 14:24
[2016-07-03 15:00] VITALS: BP 96/51
[2016-07-03 19:15] VITALS: BP 98/52
[2016-07-03 23:22] VITALS: BP 99/58
[2016-07-04 03:15] VITALS: BP 100/62
[2016-07-04 06:28] LABS: INR 2.9 (0.8-1.1)
[2016-07-04 07:00] VITALS: BP 102/64
[2016-07-04] MEDS: FAMOTIDINE 20 MG TABLET. PO SCH ×2 (08:42→21:30)
[2016-07-04] MEDS: METOPROLOL TART IMMED RELEASE 25 MG TABLET PO SCH ×2 (08:43→21:00)
[2016-07-04] MEDS: LEVETIRACETAM 500 MG TABLET PO SCH ×2 (08:43→21:30)
[2016-07-04 11:00] VITALS: BP 92/58
[2016-07-04 15:00] VITALS: BP 99/62
--- NOTE | 2016-07-04 15:13 | PDOC ---
PROGRESS NOTES Chief Complaint Chief Complaint 1. . Marfans syndrome 1. Acute, nontraumatic bilateral subdural hematomas: s/p bilat nela holes on 06/13, 06/16. 06/23. 2. Metabolic encephalopathy: improved, 3. Marfan's syndrome; with hx of aortic and mitral valve replacements 4. Chronic anticoag (for AVR): coumadin restarted, 5. HTN: well controlled 6. Dysphagia: resolved. 7. L eye blindness: chronic History of Present Illness History of Present Illness med issues uch improved Dw SW - still working on medicaid Will ff up with neurosx for removal of navid in about a week Vitals Vitals Vital Signs Date Time Temp Pulse Resp B/P Pulse Ox O2 Delivery O2 Flow Rate FiO2 07/04/16 11:00 97.7 75 18 92/58 99 Room Air 97.7 Physical Exam Physical Exam suture healing well on scalp General: Alert, Oriented X3, Cooperative, No acute distress Heart: Regular rate, Normal S1 Lungs: Clear, Other Abdomen: Normal bowel sounds, Soft, No tenderness Extremities: No clubbing, No edema Skin: No breakdown Labs LABS Laboratory Tests Test 07/04/16 05:00 Prothrombin Time 29.0SEC (11.7-14.0) Prothromb Time International Ratio 2.9 (0.8-1.1) Review of Systems Review of Systems pain OK some weakness walking a lap twice a day Assessment and Plan Assessmemt and Plan DC home soon Problems Medical Problems: (1) Subdural hematoma Status: Acute (2) Supratherapeutic INR Status: Acute Problems: Comment Review of Relevant I have reviewed the following items jordy (where applicable) has been applied. Labs Laboratory Tests Test 07/03/16 04:40 07/04/16 05:00 Prothrombin Time 34.3SEC (11.7-14.0) 29.0SEC (11.7-14.0) Prothromb Time International Ratio 3.6 (0.8-1.1) 2.9 (0.8-1.1) Laboratory Tests Test 07/04/16 05:00 Prothrombin Time 29.0SEC (11.7-14.0) Prothromb Time International Ratio 2.9 (0.8-1.1) Microbiology 06/13/16 Urine Culture - Final, Complete 06/13/16 Urine Culture Result 1 (GLENN) - Final, Complete Medications Current Medications Sodium Chloride (Iv Sodium Chloride 0.9% 1000ml Bag) 1,000 ml @ 100 mls/hr 1X ONCE IV Last administered on 06/13/16 13:45; Start 06/13/16 at 13:45; Stop at 23:44; Status DC Phytonadione (Mephyton) 10 mg 1X ONCE PO Last administered on 06/13/16 15:03; Start 06/13/16 at 15:00; Stop 06/13/16 at 15:01; Status DC Ondansetron HCl 4 mg 4 mg PRN Q8HRS PRN IV NAUSEA/VOMITING; Start 06/13/16 at 16 :15; Stop 06/14/16 at 16:14; Status DC Sodium Chloride (Iv Sodium Chloride 0.9% 1000ml Bag) 1,000 ml @ 100 mls/hr Q10H IV Last administered on 06/14/16 05:49; Start 06/13/16 at 16:10; Stop at 13:20; Status DC Morphine Sulfate 2 mg 1X ONCE IV Last administered on 06/13/16 18:08; Start at 18:30; Stop 06/13/16 at 18:31; Status DC Oxycodone/ Acetaminophen (Percocet 5/325) 1 tab PRN Q4HRS PRN PO MILD-MOD PAIN Last administered on 06/28/16 22:28; Start 06/13/16 at 18:00 Oxycodone/ Acetaminophen (Percocet 5/325) 2 tab PRN Q4HRS PRN PO SEVERE PAIN Last administered on 06/26/16 21:43; Start 06/13/16 at 18:00 Metoprolol Succinate (Toprol Xl) 25 mg DAILY PO Last administered on 06/30/16 08:13; Start 06/14/16 at 09:00; Stop 06/30/16 at 09:09; Status DC Lorazepam 2 mg 2 mg PRN Q4HRS PRN IV ANXIETY / AGITATION Last administered on 14:33; Start 06/13/16 at 19:45 Levetiracetam 500 mg/Sodium Chloride 105 ml @ 400 mls/hr PRN Q12HRS PRN IV SEIZURES; Start 06/13/16 at 19:45; Stop 06/29/16 at 10:20; Status DC Potassium Chloride/Sodium Chloride (KCl 20 Meq-0.45% Nacl) 1,000 ml @ 100 mls/ hr Q10H IV Last administered on 06/17/16 03:24; Start 06/14/16 at 13:30; Stop 06/17/16 at 12:24; Status DC Warfarin Sodium (Coumadin Per Pharmacy) 1 each PRN DAILY PRN MC SEE COMMENTS Last administered on 07/04/16 12:03; Start 06/14/16 at 16:00 Warfarin Sodium 2.5 mg 2.5 mg 1X WARF ONCE PO ; Start 06/14/16 at 17:00; Stop at 17:01; Status Cancel Bacitracin/Sodium Chloride (Iv Sodium Chloride 0.9% 1000ml Bag) 1,000 ml @ 1, 000 mls/hr 1X PERIOP ONCE IRR Last administered on 06/15/16 12:41; Start at 10:00; Stop 06/15/16 at 10:59; Status DC Ondansetron HCl (Zofran) 4 mg PRN Q6HRS PRN IV Nausea; Start 06/15/16 at 10:00; Stop 06/16/16 at 09:59; Status DC Fentanyl Citrate (Fentanyl 2ml Vial) 25 mcg PRN Q5MIN PRN IV MILD PAIN; Start 06/15/16 at 10:00; Stop 06/16/16 at 09:59; Status DC Fentanyl Citrate (Fentanyl 2ml Vial) 50 mcg PRN Q5MIN PRN IV MODERATE PAIN; Start 06/15/16 at 10:00; Stop 06/16/16 at 09:59; Status DC Morphine Sulfate 1 mg 1 mg PRN Q10MIN PRN IV SEVERE PAIN; Start 06/15/16 at 10: 00; Stop 06/16/16 at 09:59; Status DC Lactated Ringer's (Iv Lactated Ringers) 1,000 ml @ 30 mls/hr Q24H IV ; Start at 09:47; Stop 06/15/16 at 21:46; Status DC Lidocaine HCl 2 ml 1X PRN PRN ID IV START; Start 06/15/16 at 10:00; Stop at 09:59; Status DC Hydromorphone HCl (Dilaudid) 0.5 mg PRN Q10MIN PRN IV SEV PAIN,Second choice; Start 06/15/16 at 10:00; Stop 06/16/16 at 09:59; Status DC Prochlorperazine Edisylate (Compazine) 5 mg PACU PRN PRN IV NAUSEA; Start at 10:00; Stop 06/16/16 at 09:59; Status DC Phytonadione (Vitamin K) 2 mg 1X ONCE SQ Last administered on 06/15/16 11:21; Start 06/15/16 at 09:45; Stop 06/15/16 at 09:57; Status DC Dexamethasone Sodium Phosphate (Decadron) 20 mg STK-MED ONCE .ROUTE ; Start 06/15 at 10:26; Stop 06/15/16 at 10:27; Status DC Ondansetron HCl (Zofran) 4 mg STK-MED ONCE .ROUTE ; Start 06/15/16 at 10:26; Stop 06/15/16 at 10:27; Status DC Rocuronium Sparta 50 mg 50 mg STK-MED ONCE .ROUTE ; Start 06/15/16 at 10:26; Stop 06/15/16 at 10:27; Status DC Propofol (Diprivan) 20 ml @ As Directed STK-MED ONCE IV ; Start 06/15/16 at 10:26 ; Stop 06/15/16 at 10:27; Status DC Lidocaine HCl 100 mg STK-MED ONCE .ROUTE ; Start 06/15/16 at 10:26; Stop 06/15/16 at 10:27; Status DC Fentanyl Citrate (Fentanyl 2ml Vial) 100 mcg STK-MED ONCE .ROUTE ; Start at 10:26; Stop 06/15/16 at 10:27; Status DC Thrombin 20,000 unit STK-MED ONCE TP Last administered on 06/15/16 12:41; Start 06/15/16 at 10:47; Stop 06/15/16 at 10:48; Status DC Gelatin (Gelfoam Size 100) 1 each STK-MED ONCE .ROUTE Last administered on 06/15 12:41; Start 06/15/16 at 10:48; Stop 06/15/16 at 10:49; Status DC Bupivacaine HCl/ Epinephrine Bitart (Sensorcaine-Epi 0.25%-1:095135 Mpf) 30 ml STK-MED ONCE .ROUTE Last administered on 06/15/16 12:41; Start 06/15/16 at 10:48 ; Stop 06/15/16 at 10:49; Status DC Cellulose 1 each STK-MED ONCE .ROUTE ; Start 06/15/16 at 10:49; Stop 06/15/16 at 10:50; Status DC Potassium Chloride 20 meq 20 meq 1X ONCE PO Last administered on 06/15/16 11: 21; Start 06/15/16 at 11:15; Stop 06/15/16 at 11:16; Status DC Cefazolin Sodium/ Dextrose (Ancef 2gm Premix) 50 ml @ 100 mls/hr 1X PREOP PRN IV PER PROTOCOL Last administered on 06/15/16 12:56; Start 06/16/16 at 06:00; Stop 06/16/16 at 18:00; Status DC Ephedrine Sulfate 50 mg STK-MED ONCE IV ; Start 06/15/16 at 13:04; Stop 06/15/16 at 13:05; Status DC Glycopyrrolate (Robinul) 1 mg STK-MED ONCE .ROUTE ; Start 06/15/16 at 13:39; Stop 06/15/16 at 13:40; Status DC Neostigmine Methylsulfate 5 mg STK-MED ONCE .ROUTE ; Start 06/15/16 at 13:39; Stop 06/15/16 at 13:40; Status DC Fentanyl Citrate (Fentanyl 2ml Vial) 100 mcg STK-MED ONCE .ROUTE ; Start at 13:55; Stop 06/15/16 at 13:56; Status DC Sevoflurane (Ultane) 30 ml STK-MED ONCE IH ; Start 06/15/16 at 13:55; Stop at 13:56; Status DC Sevoflurane (Ultane) 60 ml STK-MED ONCE IH ; Start 06/15/16 at 13:55; Stop at 13:56; Status DC Warfarin Sodium (Coumadin - No Dose Today) 1 each 1X WARF ONCE MC Last administered on 06/15/16 16:00; Start 06/15/16 at 16:00; Stop 06/15/16 at 16:01; Status DC Cefazolin Sodium/ Dextrose (Ancef 2gm Premix) 2 gm STK-MED ONCE IV ; Start at 13:00; Stop 06/16/16 at 08:05; Status DC Famotidine (Pepcid) 20 mg BID IVP ; Start 06/16/16 at 21:00; Stop 06/16/16 at 21 :00; Status DC Famotidine (Pepcid) 20 mg BID PO Last administered on 07/04/16 08:42; Start at 13:00 Warfarin Sodium (Coumadin) 5 mg 1X WARF ONCE PO Last administered on 18:15; Start 06/17/16 at 16:00; Stop 06/17/16 at 16:01; Status DC Warfarin Sodium (Coumadin) 7.5 mg 1X WARF ONCE PO Last administered on 16:25; Start 06/18/16 at 16:00; Stop 06/18/16 at 16:01; Status DC Ondansetron HCl (Zofran) 4 mg PRN Q6HRS PRN IV NAUSEA/VOMITING Last administered on 06/28/16 03:05; Start 06/19/16 at 03:00 Morphine Sulfate 2 mg PRN Q2HR PRN IV PAIN Last administered on 06/20/16 08:06 ; Start 06/19/16 at 03:00; Stop 06/20/16 at 10:14; Status DC Warfarin Sodium 7.5 mg 7.5 mg 1X WARF ONCE PO ; Start 06/19/16 at 16:00; Stop 06/19/16 at 16:01; Status DC Amino Acids/ Glycerin/ Electrolytes (Procalamine) 1,000 ml @ 75 mls/hr [id number] IV Last administered on 06/23/16 01:06; Start 06/19/16 at 16:15; Stop at 10:24; Status DC Fentanyl Citrate (Fentanyl 2ml Vial) 50 mcg Q6HRS PRN IM BREAKTHROUGH PAIN; Start 06/20/16 at 10:15; Stop 06/20/16 at 11:08; Status DC Fentanyl Citrate (Fentanyl 2ml Vial) 50 mcg PRN Q6HRS PRN IV BREAKTHROUGH PAIN Last administered on 06/22/16 22:11; Start 06/20/16 at 11:15 Warfarin Sodium (Coumadin) 7.5 mg 1X WARF ONCE PO ; Start 06/20/16 at 16:00; Stop 06/20/16 at 16:01; Status DC Enoxaparin Sodium (Lovenox Per Pharmacy Treatment Dosing) 1 each PRN DAILY PRN MC SEE COMMENTS; Start 06/21/16 at 12:30; Stop 06/22/16 at 12:29; Status DC Enoxaparin Sodium 60 mg 60 mg Q12HR SQ Last administered on 06/22/16 21:13; Start 06/21/16 at 13:00; Stop 06/23/16 at 10:24; Status DC Bacitracin/Sodium Chloride (Iv Sodium Chloride 0.9% 1000ml Bag) 1,000 ml @ 1, 000 mls/hr 1X PERIOP ONCE IRR ; Start 06/22/16 at 09:00; Stop 06/22/16 at 09:59 ; Status DC Ondansetron HCl (Zofran) 4 mg PRN Q6HRS PRN IV Nausea; Start 06/22/16 at 09:00 ; Stop 06/22/16 at 18:00; Status DC Fentanyl Citrate (Fentanyl 2ml Vial) 25 mcg PRN Q5MIN PRN IV MILD PAIN; Start 06/22/16 at 09:00; Stop 06/22/16 at 18:00; Status DC Fentanyl Citrate (Fentanyl 2ml Vial) 50 mcg PRN Q5MIN PRN IV MODERATE PAIN Last administered on 06/22/16 17:20; Start 06/22/16 at 09:00; Stop 06/22/16 at 18:00; Status DC Morphine Sulfate 1 mg 1 mg PRN Q10MIN PRN IV SEVERE PAIN; Start 06/22/16 at 09: 00; Stop 06/22/16 at 18:00; Status DC Lactated Ringer's (Iv Lactated Ringers) 1,000 ml @ 30 mls/hr Q24H IV Last administered on 06/22/16 10:55; Start 06/22/16 at 08:52; Stop 06/22/16 at 20:51 ; Status DC Lidocaine HCl 2 ml 1X PRN PRN ID IV START; Start 06/22/16 at 09:00; Stop at 18:00; Status DC Hydromorphone HCl (Dilaudid) 0.5 mg PRN Q10MIN PRN IV SEV PAIN,Second choice; Start 06/22/16 at 09:00; Stop 06/22/16 at 18:00; Status DC Prochlorperazine Edisylate (Compazine) 5 mg PACU PRN PRN IV NAUSEA; Start 06/22 at 09:00; Stop 06/22/16 at 18:00; Status DC Bupivacaine HCl/ Epinephrine Bitart (Sensorcaine-Epi 0.25%-1:565576 Mpf) 30 ml STK-MED ONCE .ROUTE Last administered on 06/22/16 12:21; Start 06/22/16 at 09: 22; Stop 06/22/16 at 09:23; Status DC Cellulose 1 each STK-MED ONCE .ROUTE ; Start 06/22/16 at 09:22; Stop 06/22/16 at 09:23; Status DC Thrombin 20,000 unit STK-MED ONCE TP Last administered on 06/22/16 12:21; Start 06/22/16 at 09:22; Stop 06/22/16 at 09:23; Status DC Gelatin 1 each 1 each STK-MED ONCE .ROUTE Last administered on 06/22/16 12:21 ; Start 06/22/16 at 09:23; Stop 06/22/16 at 09:24; Status DC Propofol (Diprivan) 20 ml @ As Directed STK-MED ONCE IV ; Start 06/22/16 at 09: 57; Stop 06/22/16 at 09:58; Status DC Lidocaine HCl 100 mg STK-MED ONCE .ROUTE ; Start 06/22/16 at 09:57; Stop at 09:58; Status DC Rocuronium Sparta (Zemuron) 50 mg STK-MED ONCE .ROUTE ; Start 06/22/16 at 09:57 ; Stop 06/22/16 at 09:58; Status DC Ondansetron HCl (Zofran) 4 mg STK-MED ONCE .ROUTE ; Start 06/22/16 at 09:58; Stop 06/22/16 at 09:59; Status DC Dexamethasone Sodium Phosphate (Decadron) 20 mg STK-MED ONCE .ROUTE ; Start at 09:58; Stop 06/22/16 at 09:59; Status DC Fentanyl Citrate 100 mcg 100 mcg STK-MED ONCE .ROUTE ; Start 06/22/16 at 09:59; Stop 06/22/16 at 10:00; Status DC Cefazolin Sodium/ Dextrose (Ancef 2gm Premix) 50 ml @ 100 mls/hr 1X PREOP IV Last administered on 06/22/16 12:37; Start 06/22/16 at 10:15; Stop 06/28/16 at 12:06; Status DC Metoprolol Tartrate (Lopressor) 5 mg STK-MED ONCE .ROUTE ; Start 06/22/16 at 11: 05; Stop 06/22/16 at 11:06; Status DC Metoprolol Tartrate (Lopressor) 5 mg 1X ONCE IVP Last administered on 11:12; Start 06/22/16 at 11:15; Stop 06/22/16 at 11:16; Status DC Ephedrine Sulfate 50 mg STK-MED ONCE IV ; Start 06/22/16 at 12:11; Stop at 12:12; Status DC Glycopyrrolate (Robinul) 1 mg STK-MED ONCE .ROUTE ; Start 06/22/16 at 12:40; Stop 06/22/16 at 12:41; Status DC Neostigmine Methylsulfate 5 mg STK-MED ONCE .ROUTE ; Start 06/22/16 at 12:40; Stop 06/22/16 at 12:41; Status DC Sevoflurane 60 ml 60 ml STK-MED ONCE IH ; Start 06/22/16 at 13:05; Stop at 13:06; Status DC Cefazolin Sodium/ Sodium Chloride (Ancef/Iv Sodium Chloride 0.9% 50ml) 50 ml @ 100 mls/hr Q8HRS IV Last administered on 06/29/16 06:32; Start 06/22/16 at 23: 00; Stop 06/29/16 at 10:20; Status DC Warfarin Sodium (Coumadin) 7.5 mg 1X WARF ONCE PO Last administered on 17:06; Start 06/23/16 at 16:00; Stop 06/23/16 at 16:01; Status DC Enoxaparin Sodium (Lovenox 60mg Syringe) 60 mg Q12HR SQ Last administered on 08:08; Start 06/24/16 at 21:00; Stop 06/30/16 at 09:09; Status DC Warfarin Sodium (Coumadin) 7.5 mg 1X WARF ONCE PO Last administered on 15:35; Start 06/24/16 at 16:00; Stop 06/24/16 at 16:01; Status DC Warfarin Sodium (Coumadin) 5 mg 1X WARF ONCE PO Last administered on 16:49; Start 06/25/16 at 16:00; Stop 06/25/16 at 16:01; Status DC Alprazolam (Xanax) 0.25 mg PRN Q6HRS PRN PO ANXIETY / AGITATION Last administered on 07/02/16 21:14; Start 06/26/16 at 08:00 Potassium Chloride (Klor-Con) 20 meq BID PO Last administered on 06/26/16 20: 06; Start 06/26/16 at 10:15; Stop 06/26/16 at 23:55; Status DC Warfarin Sodium 6 mg 6 mg 1X WARF ONCE PO Last administered on 06/26/16 16:19 ; Start 06/26/16 at 16:00; Stop 06/26/16 at 16:01; Status DC Sodium Chloride (Iv Sodium Chloride 0.9% 1000ml Bag) 1,000 ml @ 75 mls/hr 1X ONCE IV Last administered on 06/27/16 10:26; Start 06/27/16 at 10:15; Stop at 23:34; Status DC Info (Anti-Coagulation Monitoring By Pharmacy) 1 each PRN DAILY PRN MC SEE COMMENTS Last administered on 06/27/16 14:33; Start 06/27/16 at 14:30; Stop at 10:43; Status DC Warfarin Sodium (Coumadin) 7.5 mg 1X WARF ONCE PO Last administered on 16:29; Start 06/27/16 at 16:00; Stop 06/27/16 at 16:01; Status DC Polyethylene Glycol (miraLAX PACKET) 17 gm PRN BID PRN PO CONSTIPATION Last administered on 06/28/16 13:49; Start 06/28/16 at 12:30; Stop 06/29/16 at 10:20 ; Status DC Bisacodyl (Dulcolax Supp) 10 mg PRN DAILY PRN NM CONSTIPATION Last administered on 06/28/16 14:24; Start 06/28/16 at 13:45 Warfarin Sodium (Coumadin) 7.5 mg 1X WARF ONCE PO Last administered on 17:32; Start 06/28/16 at 16:00; Stop 06/28/16 at 16:01; Status DC Polyethylene Glycol (miraLAX PACKET) 17 gm DAILY PO ; Start 06/28/16 at 15:00; Stop 06/29/16 at 10:20; Status DC Loperamide HCl (Imodium) 2 mg PRN Q15MIN PRN PO DIARRHEA; Start 06/29/16 at 10: 30 Levetiracetam (Keppra) 500 mg BID PO Last administered on 07/04/16 08:43; Start 06/29/16 at 11:00 Warfarin Sodium (Coumadin) 6 mg 1X WARF ONCE PO Last administered on 17:21; Start 06/29/16 at 16:00; Stop 06/29/16 at 16:01; Status DC Metoprolol Tartrate (Lopressor) 12.5 mg BID PO ; Start 07/01/16 at 09:00 Warfarin Sodium (Coumadin) 8 mg 1X WARF ONCE PO Last administered on 17:07; Start 06/30/16 at 16:00; Stop 06/30/16 at 16:01; Status DC Warfarin Sodium (Coumadin) 7.5 mg 1X WARF ONCE PO Last administered on 17:47; Start 07/01/16 at 16:00; Stop 07/01/16 at 16:01; Status DC Warfarin Sodium (Coumadin) 6 mg 1X WARF ONCE PO Last administered on 16:28; Start 07/02/16 at 16:00; Stop 07/02/16 at 16:01; Status DC Warfarin Sodium (Coumadin) 7.5 mg 1X WARF ONCE PO ; Start 07/04/16 at 16:00; Stop 07/04/16 at 16:01 Active Scripts Active Reported Coumadin (Warfarin Sodium) 5 Mg Tablet 1 Tab PO DAILY Metoprolol Succinate ( Xl ) (Metoprolol Succinate) 25 Mg Tab.er.24h 25 Mg PO DAILY Vitals/I & O Vital Sign - Last 24 Hours 07/03/16 07/03/16 07/03/16 07/04/16 19:15 20:00 23:22 03:15 Temp 97.9 98.1 97.9 97.9 98.1 97.9 Pulse 76 85 80 Resp B/P 98/52 99/58 100/62 Pulse Ox 97 97 99 O2 Delivery Room Air Room Air Room Air Room Air 07/04/16 07/04/16 07/04/16 07/04/16 07:00 07:55 08:43 11:00 Temp 97.7 97.7 97.7 97.7 Pulse 86 86 75 Resp 18 B/P 102/64 102/64 92/58 Pulse Ox 97 99 O2 Delivery Room Air Room Air Room Air Intake and Output 07/03/16 07/03/16 07/04/16 15:00 23:00 07:00 Intake Total 250 ml Balance 250 ml RAMA SCHULTZ MD Jul 04, 2016 15:13
[2016-07-04] MEDS ORDERED: WARFARIN 7.5 MG TABLET. PO ONE (16:00)
[2016-07-04 19:20] VITALS: BP 99/53
[2016-07-04 23:20] VITALS: BP 109/60
[2016-07-05 03:59] VITALS: BP 93/60
[2016-07-05 06:35] LABS: INR 2.8 (0.8-1.1); PROTHROMBIN TIME PATIENT 27.7 SEC (11.7-14.0)
[2016-07-05 08:01] VITALS: BP 106/65
[2016-07-05] MEDS: METOPROLOL TART IMMED RELEASE 25 MG TABLET PO SCH ×2 (08:46→21:00)
[2016-07-05] MEDS: FAMOTIDINE 20 MG TABLET. PO SCH ×2 (08:46→21:21)
[2016-07-05] MEDS: LEVETIRACETAM 500 MG TABLET PO SCH ×2 (08:46→21:21)
[2016-07-05 12:00] VITALS: BP 93/52
--- NOTE | 2016-07-05 12:59 | PDOC ---
PROGRESS NOTES Chief Complaint Chief Complaint 1. . Marfans syndrome 1. Acute, nontraumatic bilateral subdural hematomas: s/p bilat nela holes on 06/13, 06/16. 06/23. 2. Metabolic encephalopathy: improved, 3. Marfan's syndrome; with hx of aortic and mitral valve replacements 4. Chronic anticoag (for AVR): coumadin restarted, 5. HTN: well controlled 6. Dysphagia: resolved. 7. L eye blindness: chronic History of Present Illness History of Present Illness NO acute medical issues being addressed for about a week now Dw SW - still working on medicaid PLAN:dc when dc location is known SW on case Will ff up with neurosx for removal of navid in about a week (less than a week now) Vitals Vitals Vital Signs Date Time Temp Pulse Resp B/P Pulse Ox O2 Delivery O2 Flow Rate FiO2 07/05/16 12:00 97.7 73 18 93/52 95 Room Air 97.7 07/04/16 20:00 2.0 Physical Exam Physical Exam suture healing well on scalp General: Alert, Oriented X3, Cooperative, No acute distress Heart: Regular rate, Normal S1 Lungs: Clear, Other Abdomen: Normal bowel sounds, Soft, No tenderness Extremities: No clubbing, No edema Skin: No breakdown Labs LABS Laboratory Tests Test 07/05/16 05:15 Prothrombin Time 27.7SEC (11.7-14.0) Prothromb Time International Ratio 2.8 (0.8-1.1) Review of Systems Review of Systems all 14 pt reviewed Assessment and Plan Assessmemt and Plan Problems Medical Problems: (1) Subdural hematoma Status: Acute (2) Supratherapeutic INR Status: Acute Problems: Comment Review of Relevant I have reviewed the following items jordy (where applicable) has been applied. Labs Laboratory Tests Test 07/04/16 05:00 07/05/16 05:15 Prothrombin Time 29.0SEC (11.7-14.0) 27.7SEC (11.7-14.0) Prothromb Time International Ratio 2.9 (0.8-1.1) 2.8 (0.8-1.1) Laboratory Tests Test 07/05/16 05:15 Prothrombin Time 27.7SEC (11.7-14.0) Prothromb Time International Ratio 2.8 (0.8-1.1) Microbiology 06/13/16 Urine Culture - Final, Complete 06/13/16 Urine Culture Result 1 (GLENN) - Final, Complete Medications Current Medications Sodium Chloride (Iv Sodium Chloride 0.9% 1000ml Bag) 1,000 ml @ 100 mls/hr 1X ONCE IV Last administered on 06/13/16 13:45; Start 06/13/16 at 13:45; Stop at 23:44; Status DC Phytonadione (Mephyton) 10 mg 1X ONCE PO Last administered on 06/13/16 15:03; Start 06/13/16 at 15:00; Stop 06/13/16 at 15:01; Status DC Ondansetron HCl 4 mg 4 mg PRN Q8HRS PRN IV NAUSEA/VOMITING; Start 06/13/16 at 16 :15; Stop 06/14/16 at 16:14; Status DC Sodium Chloride (Iv Sodium Chloride 0.9% 1000ml Bag) 1,000 ml @ 100 mls/hr Q10H IV Last administered on 06/14/16 05:49; Start 06/13/16 at 16:10; Stop at 13:20; Status DC Morphine Sulfate 2 mg 1X ONCE IV Last administered on 06/13/16 18:08; Start at 18:30; Stop 06/13/16 at 18:31; Status DC Oxycodone/ Acetaminophen (Percocet 5/325) 1 tab PRN Q4HRS PRN PO MILD-MOD PAIN Last administered on 06/28/16 22:28; Start 06/13/16 at 18:00 Oxycodone/ Acetaminophen (Percocet 5/325) 2 tab PRN Q4HRS PRN PO SEVERE PAIN Last administered on 06/26/16 21:43; Start 06/13/16 at 18:00 Metoprolol Succinate (Toprol Xl) 25 mg DAILY PO Last administered on 06/30/16 08:13; Start 06/14/16 at 09:00; Stop 06/30/16 at 09:09; Status DC Lorazepam 2 mg 2 mg PRN Q4HRS PRN IV ANXIETY / AGITATION Last administered on 14:33; Start 06/13/16 at 19:45 Levetiracetam 500 mg/Sodium Chloride 105 ml @ 400 mls/hr PRN Q12HRS PRN IV SEIZURES; Start 06/13/16 at 19:45; Stop 06/29/16 at 10:20; Status DC Potassium Chloride/Sodium Chloride (KCl 20 Meq-0.45% Nacl) 1,000 ml @ 100 mls/ hr Q10H IV Last administered on 06/17/16 03:24; Start 06/14/16 at 13:30; Stop 06/17/16 at 12:24; Status DC Warfarin Sodium (Coumadin Per Pharmacy) 1 each PRN DAILY PRN MC SEE COMMENTS Last administered on 07/04/16 12:03; Start 06/14/16 at 16:00 Warfarin Sodium 2.5 mg 2.5 mg 1X WARF ONCE PO ; Start 06/14/16 at 17:00; Stop at 17:01; Status Cancel Bacitracin/Sodium Chloride (Iv Sodium Chloride 0.9% 1000ml Bag) 1,000 ml @ 1, 000 mls/hr 1X PERIOP ONCE IRR Last administered on 06/15/16 12:41; Start at 10:00; Stop 06/15/16 at 10:59; Status DC Ondansetron HCl (Zofran) 4 mg PRN Q6HRS PRN IV Nausea; Start 06/15/16 at 10:00; Stop 06/16/16 at 09:59; Status DC Fentanyl Citrate (Fentanyl 2ml Vial) 25 mcg PRN Q5MIN PRN IV MILD PAIN; Start 06/15/16 at 10:00; Stop 06/16/16 at 09:59; Status DC Fentanyl Citrate (Fentanyl 2ml Vial) 50 mcg PRN Q5MIN PRN IV MODERATE PAIN; Start 06/15/16 at 10:00; Stop 06/16/16 at 09:59; Status DC Morphine Sulfate 1 mg 1 mg PRN Q10MIN PRN IV SEVERE PAIN; Start 06/15/16 at 10: 00; Stop 06/16/16 at 09:59; Status DC Lactated Ringer's (Iv Lactated Ringers) 1,000 ml @ 30 mls/hr Q24H IV ; Start at 09:47; Stop 06/15/16 at 21:46; Status DC Lidocaine HCl 2 ml 1X PRN PRN ID IV START; Start 06/15/16 at 10:00; Stop at 09:59; Status DC Hydromorphone HCl (Dilaudid) 0.5 mg PRN Q10MIN PRN IV SEV PAIN,Second choice; Start 06/15/16 at 10:00; Stop 06/16/16 at 09:59; Status DC Prochlorperazine Edisylate (Compazine) 5 mg PACU PRN PRN IV NAUSEA; Start at 10:00; Stop 06/16/16 at 09:59; Status DC Phytonadione (Vitamin K) 2 mg 1X ONCE SQ Last administered on 06/15/16t 11:21; Start 06/15/16 at 09:45; Stop 06/15/16 at 09:57; Status DC Dexamethasone Sodium Phosphate (Decadron) 20 mg STK-MED ONCE .ROUTE ; Start 06/15 at 10:26; Stop 06/15/16 at 10:27; Status DC Ondansetron HCl (Zofran) 4 mg STK-MED ONCE .ROUTE ; Start 06/15/16 at 10:26; Stop 06/15/16 at 10:27; Status DC Rocuronium [place] 50 mg 50 mg STK-MED ONCE .ROUTE ; Start 06/15/16 at 10:26; Stop 06/15/16 at 10:27; Status DC Propofol (Diprivan) 20 ml @ As Directed STK-MED ONCE IV ; Start 06/15/16 at 10:26 ; Stop 06/15/16 at 10:27; Status DC Lidocaine HCl 100 mg STK-MED ONCE .ROUTE ; Start 06/15/16 at 10:26; Stop 06/15/16 at 10:27; Status DC Fentanyl Citrate (Fentanyl 2ml Vial) 100 mcg STK-MED ONCE .ROUTE ; Start at 10:26; Stop 06/15/16 at 10:27; Status DC Thrombin 20,000 unit STK-MED ONCE TP Last administered on 06/15/16t 12:41; Start 06/15/16 at 10:47; Stop 06/15/16 at 10:48; Status DC Gelatin (Gelfoam Size 100) 1 each STK-MED ONCE .ROUTE Last administered on 06/15 12:41; Start 06/15/16 at 10:48; Stop 06/15/16 at 10:49; Status DC Bupivacaine HCl/ Epinephrine Bitart (Sensorcaine-Epi 0.25%-1:727861 Mpf) 30 ml STK-MED ONCE .ROUTE Last administered on 06/15/16 12:41; Start 06/15/16 at 10:48 ; Stop 06/15/16 at 10:49; Status DC Cellulose 1 each STK-MED ONCE .ROUTE ; Start 06/15/16 at 10:49; Stop 06/15/16 at 10:50; Status DC Potassium Chloride 20 meq 20 meq 1X ONCE PO Last administered on 06/15/16 11: 21; Start 06/15/16 at 11:15; Stop 06/15/16 at 11:16; Status DC Cefazolin Sodium/ Dextrose (Ancef 2gm Premix) 50 ml @ 100 mls/hr 1X PREOP PRN IV PER PROTOCOL Last administered on 06/15/16 12:56; Start 06/16/16 at 06:00; Stop 06/16/16 at 18:00; Status DC Ephedrine Sulfate 50 mg STK-MED ONCE IV ; Start 06/15/16 at 13:04; Stop 06/15/16 at 13:05; Status DC Glycopyrrolate (Robinul) 1 mg STK-MED ONCE .ROUTE ; Start 06/15/16 at 13:39; Stop 06/15/16 at 13:40; Status DC Neostigmine Methylsulfate 5 mg STK-MED ONCE .ROUTE ; Start 06/15/16 at 13:39; Stop 06/15/16 at 13:40; Status DC Fentanyl Citrate (Fentanyl 2ml Vial) 100 mcg STK-MED ONCE .ROUTE ; Start at 13:55; Stop 06/15/16 at 13:56; Status DC Sevoflurane (Ultane) 30 ml STK-MED ONCE IH ; Start 06/15/16 at 13:55; Stop at 13:56; Status DC Sevoflurane (Ultane) 60 ml STK-MED ONCE IH ; Start 06/15/16 at 13:55; Stop at 13:56; Status DC Warfarin Sodium (Coumadin - No Dose Today) 1 each 1X WARF ONCE MC Last administered on 06/15/16 16:00; Start 06/15/16 at 16:00; Stop 06/15/16 at 16:01; Status DC Cefazolin Sodium/ Dextrose (Ancef 2gm Premix) 2 gm STK-MED ONCE IV ; Start at 13:00; Stop 06/16/16 at 08:05; Status DC Famotidine (Pepcid) 20 mg BID IVP ; Start 06/16/16 at 21:00; Stop 06/16/16 at 21 :00; Status DC Famotidine (Pepcid) 20 mg BID PO Last administered on 07/05/16 08:46; Start at 13:00 Warfarin Sodium (Coumadin) 5 mg 1X WARF ONCE PO Last administered on 18:15; Start 06/17/16 at 16:00; Stop 06/17/16 at 16:01; Status DC Warfarin Sodium (Coumadin) 7.5 mg 1X WARF ONCE PO Last administered on 16:25; Start 06/18/16 at 16:00; Stop 06/18/16 at 16:01; Status DC Ondansetron HCl (Zofran) 4 mg PRN Q6HRS PRN IV NAUSEA/VOMITING Last administered on 06/28/16 03:05; Start 06/19/16 at 03:00 Morphine Sulfate 2 mg PRN Q2HR PRN IV PAIN Last administered on 06/20/16 08:06 ; Start 06/19/16 at 03:00; Stop 06/20/16 at 10:14; Status DC Warfarin Sodium 7.5 mg 7.5 mg 1X WARF ONCE PO ; Start 06/19/16 at 16:00; Stop 06/19/16 at 16:01; Status DC Amino Acids/ Glycerin/ Electrolytes (Procalamine) 1,000 ml @ 75 mls/hr [id number] IV Last administered on 06/23/16 01:06; Start 06/19/16 at 16:15; Stop at 10:24; Status DC Fentanyl Citrate (Fentanyl 2ml Vial) 50 mcg Q6HRS PRN IM BREAKTHROUGH PAIN; Start 06/20/16 at 10:15; Stop 06/20/16 at 11:08; Status DC Fentanyl Citrate (Fentanyl 2ml Vial) 50 mcg PRN Q6HRS PRN IV BREAKTHROUGH PAIN Last administered on 06/22/16 22:11; Start 06/20/16 at 11:15 Warfarin Sodium (Coumadin) 7.5 mg 1X WARF ONCE PO ; Start 06/20/16 at 16:00; Stop 06/20/16 at 16:01; Status DC Enoxaparin Sodium (Lovenox Per Pharmacy Treatment Dosing) 1 each PRN DAILY PRN MC SEE COMMENTS; Start 06/21/16 at 12:30; Stop 06/22/16 at 12:29; Status DC Enoxaparin Sodium 60 mg 60 mg Q12HR SQ Last administered on 06/22/16 21:13; Start 06/21/16 at 13:00; Stop 06/23/16 at 10:24; Status DC Bacitracin/Sodium Chloride (Iv Sodium Chloride 0.9% 1000ml Bag) 1,000 ml @ 1, 000 mls/hr 1X PERIOP ONCE IRR ; Start 06/22/16 at 09:00; Stop 06/22/16 at 09:59 ; Status DC Ondansetron HCl (Zofran) 4 mg PRN Q6HRS PRN IV Nausea; Start 06/22/16 at 09:00 ; Stop 06/22/16 at 18:00; Status DC Fentanyl Citrate (Fentanyl 2ml Vial) 25 mcg PRN Q5MIN PRN IV MILD PAIN; Start 06/22/16 at 09:00; Stop 06/22/16 at 18:00; Status DC Fentanyl Citrate (Fentanyl 2ml Vial) 50 mcg PRN Q5MIN PRN IV MODERATE PAIN Last administered on 06/22/16 17:20; Start 06/22/16 at 09:00; Stop 06/22/16 at 18:00; Status DC Morphine Sulfate 1 mg 1 mg PRN Q10MIN PRN IV SEVERE PAIN; Start 06/22/16 at 09: 00; Stop 06/22/16 at 18:00; Status DC Lactated Ringer's (Iv Lactated Ringers) 1,000 ml @ 30 mls/hr Q24H IV Last administered on 06/22/16 10:55; Start 06/22/16 at 08:52; Stop 06/22/16 at 20:51 ; Status DC Lidocaine HCl 2 ml 1X PRN PRN ID IV START; Start 06/22/16 at 09:00; Stop at 18:00; Status DC Hydromorphone HCl (Dilaudid) 0.5 mg PRN Q10MIN PRN IV SEV PAIN,Second choice; Start 06/22/16 at 09:00; Stop 06/22/16 at 18:00; Status DC Prochlorperazine Edisylate (Compazine) 5 mg PACU PRN PRN IV NAUSEA; Start 06/22 at 09:00; Stop 06/22/16 at 18:00; Status DC Bupivacaine HCl/ Epinephrine Bitart (Sensorcaine-Epi 0.25%-1:686289 Mpf) 30 ml STK-MED ONCE .ROUTE Last administered on 06/22/16 12:21; Start 06/22/16 at 09: 22; Stop 06/22/16 at 09:23; Status DC Cellulose 1 each STK-MED ONCE .ROUTE ; Start 06/22/16 at 09:22; Stop 06/22/16 at 09:23; Status DC Thrombin 20,000 unit STK-MED ONCE TP Last administered on 06/22/16 12:21; Start 06/22/16 at 09:22; Stop 06/22/16 at 09:23; Status DC Gelatin 1 each 1 each STK-MED ONCE .ROUTE Last administered on 06/22/16 12:21 ; Start 06/22/16 at 09:23; Stop 06/22/16 at 09:24; Status DC Propofol (Diprivan) 20 ml @ As Directed STK-MED ONCE IV ; Start 06/22/16 at 09: 57; Stop 06/22/16 at 09:58; Status DC Lidocaine HCl 100 mg STK-MED ONCE .ROUTE ; Start 06/22/16 at 09:57; Stop at 09:58; Status DC Rocuronium [place] (Zemuron) 50 mg STK-MED ONCE .ROUTE ; Start 06/22/16 at 09:57 ; Stop 06/22/16 at 09:58; Status DC Ondansetron HCl (Zofran) 4 mg STK-MED ONCE .ROUTE ; Start 06/22/16 at 09:58; Stop 06/22/16 at 09:59; Status DC Dexamethasone Sodium Phosphate (Decadron) 20 mg STK-MED ONCE .ROUTE ; Start at 09:58; Stop 06/22/16 at 09:59; Status DC Fentanyl Citrate 100 mcg 100 mcg STK-MED ONCE .ROUTE ; Start 06/22/16 at 09:59; Stop 06/22/16 at 10:00; Status DC Cefazolin Sodium/ Dextrose (Ancef 2gm Premix) 50 ml @ 100 mls/hr 1X PREOP IV Last administered on 06/22/16t 12:37; Start 06/22/16 at 10:15; Stop 06/28/16 at 12:06; Status DC Metoprolol Tartrate (Lopressor) 5 mg STK-MED ONCE .ROUTE ; Start 06/22/16 at 11: 05; Stop 06/22/16 at 11:06; Status DC Metoprolol Tartrate (Lopressor) 5 mg 1X ONCE IVP Last administered on t 11:12; Start 06/22/16 at 11:15; Stop 06/22/16 at 11:16; Status DC Ephedrine Sulfate 50 mg STK-MED ONCE IV ; Start 06/22/16 at 12:11; Stop at 12:12; Status DC Glycopyrrolate (Robinul) 1 mg STK-MED ONCE .ROUTE ; Start 06/22/16 at 12:40; Stop 06/22/16 at 12:41; Status DC Neostigmine Methylsulfate 5 mg STK-MED ONCE .ROUTE ; Start 06/22/16 at 12:40; Stop 06/22/16 at 12:41; Status DC Sevoflurane 60 ml 60 ml STK-MED ONCE IH ; Start 06/22/16 at 13:05; Stop at 13:06; Status DC Cefazolin Sodium/ Sodium Chloride (Ancef/Iv Sodium Chloride 0.9% 50ml) 50 ml @ 100 mls/hr Q8HRS IV Last administered on 06/29/16 06:32; Start 06/22/16 at 23: 00; Stop 06/29/16 at 10:20; Status DC Warfarin Sodium (Coumadin) 7.5 mg 1X WARF ONCE PO Last administered on 17:06; Start 06/23/16 at 16:00; Stop 06/23/16 at 16:01; Status DC Enoxaparin Sodium (Lovenox 60mg Syringe) 60 mg Q12HR SQ Last administered on 08:08; Start 06/24/16 at 21:00; Stop 06/30/16 at 09:09; Status DC Warfarin Sodium (Coumadin) 7.5 mg 1X WARF ONCE PO Last administered on 15:35; Start 06/24/16 at 16:00; Stop 06/24/16 at 16:01; Status DC Warfarin Sodium (Coumadin) 5 mg 1X WARF ONCE PO Last administered on 16:49; Start 06/25/16 at 16:00; Stop 06/25/16 at 16:01; Status DC Alprazolam (Xanax) 0.25 mg PRN Q6HRS PRN PO ANXIETY / AGITATION Last administered on 07/02/16 21:14; Start 06/26/16 at 08:00 Potassium Chloride (Klor-Con) 20 meq BID PO Last administered on 06/26/16 20: 06; Start 06/26/16 at 10:15; Stop 06/26/16 at 23:55; Status DC Warfarin Sodium 6 mg 6 mg 1X WARF ONCE PO Last administered on 06/26/16 16:19 ; Start 06/26/16 at 16:00; Stop 06/26/16 at 16:01; Status DC Sodium Chloride (Iv Sodium Chloride 0.9% 1000ml Bag) 1,000 ml @ 75 mls/hr 1X ONCE IV Last administered on 06/27/16 10:26; Start 06/27/16 at 10:15; Stop at 23:34; Status DC Info (Anti-Coagulation Monitoring By Pharmacy) 1 each PRN DAILY PRN MC SEE COMMENTS Last administered on 06/27/16 14:33; Start 06/27/16 at 14:30; Stop at 10:43; Status DC Warfarin Sodium (Coumadin) 7.5 mg 1X WARF ONCE PO Last administered on 16:29; Start 06/27/16 at 16:00; Stop 06/27/16 at 16:01; Status DC Polyethylene Glycol (miraLAX PACKET) 17 gm PRN BID PRN PO CONSTIPATION Last administered on 06/28/16 13:49; Start 06/28/16 at 12:30; Stop 06/29/16 at 10:20 ; Status DC Bisacodyl (Dulcolax Supp) 10 mg PRN DAILY PRN RI CONSTIPATION Last administered on 06/28/16 14:24; Start 06/28/16 at 13:45 Warfarin Sodium (Coumadin) 7.5 mg 1X WARF ONCE PO Last administered on 17:32; Start 06/28/16 at 16:00; Stop 06/28/16 at 16:01; Status DC Polyethylene Glycol (miraLAX PACKET) 17 gm DAILY PO ; Start 06/28/16 at 15:00; Stop 06/29/16 at 10:20; Status DC Loperamide HCl (Imodium) 2 mg PRN Q15MIN PRN PO DIARRHEA; Start 06/29/16 at 10: 30 Levetiracetam (Keppra) 500 mg BID PO Last administered on 07/05/16 08:46; Start 06/29/16 at 11:00 Warfarin Sodium (Coumadin) 6 mg 1X WARF ONCE PO Last administered on 17:21; Start 06/29/16 at 16:00; Stop 06/29/16 at 16:01; Status DC Metoprolol Tartrate (Lopressor) 12.5 mg BID PO ; Start 07/01/16 at 09:00 Warfarin Sodium (Coumadin) 8 mg 1X WARF ONCE PO Last administered on 17:07; Start 06/30/16 at 16:00; Stop 06/30/16 at 16:01; Status DC Warfarin Sodium (Coumadin) 7.5 mg 1X WARF ONCE PO Last administered on 17:47; Start 07/01/16 at 16:00; Stop 07/01/16 at 16:01; Status DC Warfarin Sodium (Coumadin) 6 mg 1X WARF ONCE PO Last administered on 16:28; Start 07/02/16 at 16:00; Stop 07/02/16 at 16:01; Status DC Warfarin Sodium (Coumadin) 7.5 mg 1X WARF ONCE PO Last administered on t 16:06; Start 07/04/16 at 16:00; Stop 07/04/16 at 16:01; Status DC Active Scripts Active Reported Coumadin (Warfarin Sodium) 5 Mg Tablet 1 Tab PO DAILY Metoprolol Succinate ( Xl ) (Metoprolol Succinate) 25 Mg Tab.er.24h 25 Mg PO DAILY Vitals/I & O Vital Sign - Last 24 Hours 07/04/16 07/04/16 07/04/16 07/04/16 15:00 19:20 20:00 21:00 Temp 97.9 98.1 97.9 98.1 Pulse 84 83 83 Resp 18 18 B/P 99/62 99/53 99/53 Pulse Ox 97 97 O2 Delivery Room Air Room Air Room Air O2 Flow Rate 2.0 07/04/16 07/05/16 07/05/16 07/05/16 23:20 03:59 08:01 08:05 Temp 97.6 97.9 94.5 97.6 97.9 94.5 Pulse 87 82 74 Resp 18 18 18 B/P 109/60 93/60 106/65 Pulse Ox 95 96 94 O2 Delivery Room Air Room Air Room Air Room Air 07/05/16 07/05/16 08:46 12:00 Temp 97.7 97.7 Pulse 64 73 Resp 18 B/P 106/65 93/52 Pulse Ox 95 O2 Delivery Room Air Intake and Output 07/04/16 07/04/16 07/05/16 15:00 23:00 07:00 Intake Total 0 ml Balance 0 ml DANILO PIZANO MD Jul 05, 2016 12:59
[2016-07-05 15:06] VITALS: BP 96/63
[2016-07-05] MEDS ORDERED: WARFARIN 7.5 MG TABLET. PO ONE (16:00)
[2016-07-05 19:00] VITALS: BP 104/63
[2016-07-05 23:24] VITALS: BP 100/64
[2016-07-06] VITALS (7 sets, daily range): BP systolic 87–108; BP diastolic 54–65
[2016-07-06 05:20] LABS: PROTHROMBIN TIME PATIENT 29.5 SEC (11.7-14.0)
[2016-07-06] MEDS: METOPROLOL TART IMMED RELEASE 25 MG TABLET PO SCH ×2 (09:00→21:00)
[2016-07-06] MEDS: FAMOTIDINE 20 MG TABLET. PO SCH ×2 (09:58→21:21)
[2016-07-06] MEDS: LEVETIRACETAM 500 MG TABLET PO SCH ×2 (09:58→21:21)
--- NOTE | 2016-07-06 10:00 | PDOC ---
PROGRESS NOTES Subjective Subjective ambulating in room denies headache Objective Objective Vital Signs Date Time Temp Pulse Resp B/P Pulse Ox O2 Delivery O2 Flow Rate FiO2 07/06/16 08:40 97.7 84 12 98/64 96 Room Air 97.7 07/04/16 20:00 2.0 Intake and Output 07/06/16 07:00 Intake Total 580 ml Balance 580 ml Intake Oral 580 ml # Voids 2 Physical Exam General: Alert, Oriented X3, Cooperative, No acute distress Neuro: Normal speech Skin: Other (incisions healing well, all navid removed except 3 left on left ) Assessment Assessment Problems Medical Problems: (1) Subdural hematoma Status: Acute (2) Supratherapeutic INR Status: Acute Plan Plan of Care f/u CT head ordered today will need to follow up in office next week for removal of remaining navid Comment Review of Relevant I have reviewed the following items jordy (where applicable) has been applied. Labs Laboratory Tests Test 07/05/16 05:15 07/06/16 03:50 Prothrombin Time 27.7SEC (11.7-14.0) 29.5SEC (11.7-14.0) Prothromb Time International Ratio 2.8 (0.8-1.1) 3.0 (0.8-1.1) Laboratory Tests Test 07/06/16 03:50 Prothrombin Time 29.5SEC (11.7-14.0) Prothromb Time International Ratio 3.0 (0.8-1.1) Microbiology 06/13/16 Urine Culture - Final, Complete 06/13/16 Urine Culture Result 1 (GLENN) - Final, Complete Medications Current Medications Sodium Chloride (Iv Sodium Chloride 0.9% 1000ml Bag) 1,000 ml @ 100 mls/hr 1X ONCE IV Last administered on 06/13/16 13:45; Start 06/13/16 at 13:45; Stop at 23:44; Status DC Phytonadione (Mephyton) 10 mg 1X ONCE PO Last administered on 06/13/16 15:03; Start 06/13/16 at 15:00; Stop 06/13/16 at 15:01; Status DC Ondansetron HCl 4 mg 4 mg PRN Q8HRS PRN IV NAUSEA/VOMITING; Start 06/13/16 at 16 :15; Stop 06/14/16 at 16:14; Status DC Sodium Chloride (Iv Sodium Chloride 0.9% 1000ml Bag) 1,000 ml @ 100 mls/hr Q10H IV Last administered on 06/14/16 05:49; Start 06/13/16 at 16:10; Stop at 13:20; Status DC Morphine Sulfate 2 mg 1X ONCE IV Last administered on 06/13/16 18:08; Start at 18:30; Stop 06/13/16 at 18:31; Status DC Oxycodone/ Acetaminophen (Percocet 5/325) 1 tab PRN Q4HRS PRN PO MILD-MOD PAIN Last administered on 06/28/16 22:28; Start 06/13/16 at 18:00 Oxycodone/ Acetaminophen (Percocet 5/325) 2 tab PRN Q4HRS PRN PO SEVERE PAIN Last administered on 06/26/16 21:43; Start 06/13/16 at 18:00 Metoprolol Succinate (Toprol Xl) 25 mg DAILY PO Last administered on 06/30/16 08:13; Start 06/14/16 at 09:00; Stop 06/30/16 at 09:09; Status DC Lorazepam 2 mg 2 mg PRN Q4HRS PRN IV ANXIETY / AGITATION Last administered on 14:33; Start 06/13/16 at 19:45 Levetiracetam 500 mg/Sodium Chloride 105 ml @ 400 mls/hr PRN Q12HRS PRN IV SEIZURES; Start 06/13/16 at 19:45; Stop 06/29/16 at 10:20; Status DC Potassium Chloride/Sodium Chloride (KCl 20 Meq-0.45% Nacl) 1,000 ml @ 100 mls/ hr Q10H IV Last administered on 06/17/16 03:24; Start 06/14/16 at 13:30; Stop 06/17/16 at 12:24; Status DC Warfarin Sodium (Coumadin Per Pharmacy) 1 each PRN DAILY PRN MC SEE COMMENTS Last administered on 07/05/16 13:09; Start 06/14/16 at 16:00 Warfarin Sodium 2.5 mg 2.5 mg 1X WARF ONCE PO ; Start 06/14/16 at 17:00; Stop at 17:01; Status Cancel Bacitracin/Sodium Chloride (Iv Sodium Chloride 0.9% 1000ml Bag) 1,000 ml @ 1, 000 mls/hr 1X PERIOP ONCE IRR Last administered on 06/15/16t 12:41; Start at 10:00; Stop 06/15/16 at 10:59; Status DC Ondansetron HCl (Zofran) 4 mg PRN Q6HRS PRN IV Nausea; Start 06/15/16 at 10:00; Stop 06/16/16 at 09:59; Status DC Fentanyl Citrate (Fentanyl 2ml Vial) 25 mcg PRN Q5MIN PRN IV MILD PAIN; Start 06/15/16 at 10:00; Stop 06/16/16 at 09:59; Status DC Fentanyl Citrate (Fentanyl 2ml Vial) 50 mcg PRN Q5MIN PRN IV MODERATE PAIN; Start 06/15/16 at 10:00; Stop 06/16/16 at 09:59; Status DC Morphine Sulfate 1 mg 1 mg PRN Q10MIN PRN IV SEVERE PAIN; Start 06/15/16 at 10: 00; Stop 06/16/16 at 09:59; Status DC Lactated Ringer's (Iv Lactated Ringers) 1,000 ml @ 30 mls/hr Q24H IV ; Start at 09:47; Stop 06/15/16 at 21:46; Status DC Lidocaine HCl 2 ml 1X PRN PRN ID IV START; Start 06/15/16 at 10:00; Stop at 09:59; Status DC Hydromorphone HCl (Dilaudid) 0.5 mg PRN Q10MIN PRN IV SEV PAIN,Second choice; Start 06/15/16 at 10:00; Stop 06/16/16 at 09:59; Status DC Prochlorperazine Edisylate (Compazine) 5 mg PACU PRN PRN IV NAUSEA; Start at 10:00; Stop 06/16/16 at 09:59; Status DC Phytonadione (Vitamin K) 2 mg 1X ONCE SQ Last administered on 06/15/16t 11:21; Start 06/15/16 at 09:45; Stop 06/15/16 at 09:57; Status DC Dexamethasone Sodium Phosphate (Decadron) 20 mg STK-MED ONCE .ROUTE ; Start 06/15 at 10:26; Stop 06/15/16 at 10:27; Status DC Ondansetron HCl (Zofran) 4 mg STK-MED ONCE .ROUTE ; Start 06/15/16 at 10:26; Stop 06/15/16 at 10:27; Status DC Rocuronium [place] 50 mg 50 mg STK-MED ONCE .ROUTE ; Start 06/15/16 at 10:26; Stop 06/15/16 at 10:27; Status DC Propofol (Diprivan) 20 ml @ As Directed STK-MED ONCE IV ; Start 06/15/16 at 10:26 ; Stop 06/15/16 at 10:27; Status DC Lidocaine HCl 100 mg STK-MED ONCE .ROUTE ; Start 06/15/16 at 10:26; Stop 06/15/16 at 10:27; Status DC Fentanyl Citrate (Fentanyl 2ml Vial) 100 mcg STK-MED ONCE .ROUTE ; Start at 10:26; Stop 06/15/16 at 10:27; Status DC Thrombin 20,000 unit STK-MED ONCE TP Last administered on 06/15/16 12:41; Start 06/15/16 at 10:47; Stop 06/15/16 at 10:48; Status DC Gelatin (Gelfoam Size 100) 1 each STK-MED ONCE .ROUTE Last administered on 06/15 12:41; Start 06/15/16 at 10:48; Stop 06/15/16 at 10:49; Status DC Bupivacaine HCl/ Epinephrine Bitart (Sensorcaine-Epi 0.25%-1:[id number] Mpf) 30 ml STK-MED ONCE .ROUTE Last administered on 06/15/16 12:41; Start 06/15/16 at 10:48 ; Stop 06/15/16 at 10:49; Status DC Cellulose 1 each STK-MED ONCE .ROUTE ; Start 06/15/16 at 10:49; Stop 06/15/16 at 10:50; Status DC Potassium Chloride 20 meq 20 meq 1X ONCE PO Last administered on 06/15/16 11: 21; Start 06/15/16 at 11:15; Stop 06/15/16 at 11:16; Status DC Cefazolin Sodium/ Dextrose (Ancef 2gm Premix) 50 ml @ 100 mls/hr 1X PREOP PRN IV PER PROTOCOL Last administered on 06/15/16 12:56; Start 06/16/16 at 06:00; Stop 06/16/16 at 18:00; Status DC Ephedrine Sulfate 50 mg STK-MED ONCE IV ; Start 06/15/16 at 13:04; Stop 06/15/16 at 13:05; Status DC Glycopyrrolate (Robinul) 1 mg STK-MED ONCE .ROUTE ; Start 06/15/16 at 13:39; Stop 06/15/16 at 13:40; Status DC Neostigmine Methylsulfate 5 mg STK-MED ONCE .ROUTE ; Start 06/15/16 at 13:39; Stop 06/15/16 at 13:40; Status DC Fentanyl Citrate (Fentanyl 2ml Vial) 100 mcg STK-MED ONCE .ROUTE ; Start at 13:55; Stop 06/15/16 at 13:56; Status DC Sevoflurane (Ultane) 30 ml STK-MED ONCE IH ; Start 06/15/16 at 13:55; Stop at 13:56; Status DC Sevoflurane (Ultane) 60 ml STK-MED ONCE IH ; Start 06/15/16 at 13:55; Stop at 13:56; Status DC Warfarin Sodium (Coumadin - No Dose Today) 1 each 1X WARF ONCE MC Last administered on 06/15/16 16:00; Start 06/15/16 at 16:00; Stop 06/15/16 at 16:01; Status DC Cefazolin Sodium/ Dextrose (Ancef 2gm Premix) 2 gm STK-MED ONCE IV ; Start at 13:00; Stop 06/16/16 at 08:05; Status DC Famotidine (Pepcid) 20 mg BID IVP ; Start 06/16/16 at 21:00; Stop 06/16/16 at 21 :00; Status DC Famotidine (Pepcid) 20 mg BID PO Last administered on 07/05/16 21:21; Start at 13:00 Warfarin Sodium (Coumadin) 5 mg 1X WARF ONCE PO Last administered on 18:15; Start 06/17/16 at 16:00; Stop 06/17/16 at 16:01; Status DC Warfarin Sodium (Coumadin) 7.5 mg 1X WARF ONCE PO Last administered on 16:25; Start 06/18/16 at 16:00; Stop 06/18/16 at 16:01; Status DC Ondansetron HCl (Zofran) 4 mg PRN Q6HRS PRN IV NAUSEA/VOMITING Last administered on 06/28/16 03:05; Start 06/19/16 at 03:00 Morphine Sulfate 2 mg PRN Q2HR PRN IV PAIN Last administered on 06/20/16 08:06 ; Start 06/19/16 at 03:00; Stop 06/20/16 at 10:14; Status DC Warfarin Sodium 7.5 mg 7.5 mg 1X WARF ONCE PO ; Start 06/19/16 at 16:00; Stop 06/19/16 at 16:01; Status DC Amino Acids/ Glycerin/ Electrolytes (Procalamine) 1,000 ml @ 75 mls/hr [id number] IV Last administered on 06/23/16 01:06; Start 06/19/16 at 16:15; Stop at 10:24; Status DC Fentanyl Citrate (Fentanyl 2ml Vial) 50 mcg Q6HRS PRN IM BREAKTHROUGH PAIN; Start 06/20/16 at 10:15; Stop 06/20/16 at 11:08; Status DC Fentanyl Citrate (Fentanyl 2ml Vial) 50 mcg PRN Q6HRS PRN IV BREAKTHROUGH PAIN Last administered on 06/22/16 22:11; Start 06/20/16 at 11:15 Warfarin Sodium (Coumadin) 7.5 mg 1X WARF ONCE PO ; Start 06/20/16 at 16:00; Stop 06/20/16 at 16:01; Status DC Enoxaparin Sodium (Lovenox Per Pharmacy Treatment Dosing) 1 each PRN DAILY PRN MC SEE COMMENTS; Start 06/21/16 at 12:30; Stop 06/22/16 at 12:29; Status DC Enoxaparin Sodium 60 mg 60 mg Q12HR SQ Last administered on 06/22/16 21:13; Start 06/21/16 at 13:00; Stop 06/23/16 at 10:24; Status DC Bacitracin/Sodium Chloride (Iv Sodium Chloride 0.9% 1000ml Bag) 1,000 ml @ 1, 000 mls/hr 1X PERIOP ONCE IRR ; Start 06/22/16 at 09:00; Stop 06/22/16 at 09:59 ; Status DC Ondansetron HCl (Zofran) 4 mg PRN Q6HRS PRN IV Nausea; Start 06/22/16 at 09:00 ; Stop 06/22/16 at 18:00; Status DC Fentanyl Citrate (Fentanyl 2ml Vial) 25 mcg PRN Q5MIN PRN IV MILD PAIN; Start 06/22/16 at 09:00; Stop 06/22/16 at 18:00; Status DC Fentanyl Citrate (Fentanyl 2ml Vial) 50 mcg PRN Q5MIN PRN IV MODERATE PAIN Last administered on 06/22/16 17:20; Start 06/22/16 at 09:00; Stop 06/22/16 at 18:00; Status DC Morphine Sulfate 1 mg 1 mg PRN Q10MIN PRN IV SEVERE PAIN; Start 06/22/16 at 09: 00; Stop 06/22/16 at 18:00; Status DC Lactated Ringer's (Iv Lactated Ringers) 1,000 ml @ 30 mls/hr Q24H IV Last administered on 06/22/16 10:55; Start 06/22/16 at 08:52; Stop 06/22/16 at 20:51 ; Status DC Lidocaine HCl 2 ml 1X PRN PRN ID IV START; Start 06/22/16 at 09:00; Stop at 18:00; Status DC Hydromorphone HCl (Dilaudid) 0.5 mg PRN Q10MIN PRN IV SEV PAIN,Second choice; Start 06/22/16 at 09:00; Stop 06/22/16 at 18:00; Status DC Prochlorperazine Edisylate (Compazine) 5 mg PACU PRN PRN IV NAUSEA; Start 06/22 at 09:00; Stop 06/22/16 at 18:00; Status DC Bupivacaine HCl/ Epinephrine Bitart (Sensorcaine-Epi 0.25%-1:808706 Mpf) 30 ml STK-MED ONCE .ROUTE Last administered on 06/22/16 12:21; Start 06/22/16 at 09: 22; Stop 06/22/16 at 09:23; Status DC Cellulose 1 each STK-MED ONCE .ROUTE ; Start 06/22/16 at 09:22; Stop 06/22/16 at 09:23; Status DC Thrombin 20,000 unit STK-MED ONCE TP Last administered on 06/22/16 12:21; Start 06/22/16 at 09:22; Stop 06/22/16 at 09:23; Status DC Gelatin 1 each 1 each STK-MED ONCE .ROUTE Last administered on 06/22/16 12:21 ; Start 06/22/16 at 09:23; Stop 06/22/16 at 09:24; Status DC Propofol (Diprivan) 20 ml @ As Directed STK-MED ONCE IV ; Start 06/22/16 at 09: 57; Stop 06/22/16 at 09:58; Status DC Lidocaine HCl 100 mg STK-MED ONCE .ROUTE ; Start 06/22/16 at 09:57; Stop at 09:58; Status DC Rocuronium [place] (Zemuron) 50 mg STK-MED ONCE .ROUTE ; Start 06/22/16 at 09:57 ; Stop 06/22/16 at 09:58; Status DC Ondansetron HCl (Zofran) 4 mg STK-MED ONCE .ROUTE ; Start 06/22/16 at 09:58; Stop 06/22/16 at 09:59; Status DC Dexamethasone Sodium Phosphate (Decadron) 20 mg STK-MED ONCE .ROUTE ; Start at 09:58; Stop 06/22/16 at 09:59; Status DC Fentanyl Citrate 100 mcg 100 mcg STK-MED ONCE .ROUTE ; Start 06/22/16 at 09:59; Stop 06/22/16 at 10:00; Status DC Cefazolin Sodium/ Dextrose (Ancef 2gm Premix) 50 ml @ 100 mls/hr 1X PREOP IV Last administered on 06/22/16 12:37; Start 06/22/16 at 10:15; Stop 06/28/16 at 12:06; Status DC Metoprolol Tartrate (Lopressor) 5 mg STK-MED ONCE .ROUTE ; Start 06/22/16 at 11: 05; Stop 06/22/16 at 11:06; Status DC Metoprolol Tartrate (Lopressor) 5 mg 1X ONCE IVP Last administered on 11:12; Start 06/22/16 at 11:15; Stop 06/22/16 at 11:16; Status DC Ephedrine Sulfate 50 mg STK-MED ONCE IV ; Start 06/22/16 at 12:11; Stop at 12:12; Status DC Glycopyrrolate (Robinul) 1 mg STK-MED ONCE .ROUTE ; Start 06/22/16 at 12:40; Stop 06/22/16 at 12:41; Status DC Neostigmine Methylsulfate 5 mg STK-MED ONCE .ROUTE ; Start 06/22/16 at 12:40; Stop 06/22/16 at 12:41; Status DC Sevoflurane 60 ml 60 ml STK-MED ONCE IH ; Start 06/22/16 at 13:05; Stop at 13:06; Status DC Cefazolin Sodium/ Sodium Chloride (Ancef/Iv Sodium Chloride 0.9% 50ml) 50 ml @ 100 mls/hr Q8HRS IV Last administered on 06/29/16 06:32; Start 06/22/16 at 23: 00; Stop 06/29/16 at 10:20; Status DC Warfarin Sodium (Coumadin) 7.5 mg 1X WARF ONCE PO Last administered on 17:06; Start 06/23/16 at 16:00; Stop 06/23/16 at 16:01; Status DC Enoxaparin Sodium (Lovenox 60mg Syringe) 60 mg Q12HR SQ Last administered on 08:08; Start 06/24/16 at 21:00; Stop 06/30/16 at 09:09; Status DC Warfarin Sodium (Coumadin) 7.5 mg 1X WARF ONCE PO Last administered on 15:35; Start 06/24/16 at 16:00; Stop 06/24/16 at 16:01; Status DC Warfarin Sodium (Coumadin) 5 mg 1X WARF ONCE PO Last administered on 16:49; Start 06/25/16 at 16:00; Stop 06/25/16 at 16:01; Status DC Alprazolam (Xanax) 0.25 mg PRN Q6HRS PRN PO ANXIETY / AGITATION Last administered on 07/02/16 21:14; Start 06/26/16 at 08:00 Potassium Chloride (Klor-Con) 20 meq BID PO Last administered on 06/26/16 20: 06; Start 06/26/16 at 10:15; Stop 06/26/16 at 23:55; Status DC Warfarin Sodium 6 mg 6 mg 1X WARF ONCE PO Last administered on 06/26/16 16:19 ; Start 06/26/16 at 16:00; Stop 06/26/16 at 16:01; Status DC Sodium Chloride (Iv Sodium Chloride 0.9% 1000ml Bag) 1,000 ml @ 75 mls/hr 1X ONCE IV Last administered on 06/27/16 10:26; Start 06/27/16 at 10:15; Stop at 23:34; Status DC Info (Anti-Coagulation Monitoring By Pharmacy) 1 each PRN DAILY PRN MC SEE COMMENTS Last administered on 06/27/16 14:33; Start 06/27/16 at 14:30; Stop at 10:43; Status DC Warfarin Sodium (Coumadin) 7.5 mg 1X WARF ONCE PO Last administered on 16:29; Start 06/27/16 at 16:00; Stop 06/27/16 at 16:01; Status DC Polyethylene Glycol (miraLAX PACKET) 17 gm PRN BID PRN PO CONSTIPATION Last administered on 06/28/16 13:49; Start 06/28/16 at 12:30; Stop 06/29/16 at 10:20 ; Status DC Bisacodyl (Dulcolax Supp) 10 mg PRN DAILY PRN [place] CONSTIPATION Last administered on 06/28/16 14:24; Start 06/28/16 at 13:45 Warfarin Sodium (Coumadin) 7.5 mg 1X WARF ONCE PO Last administered on 17:32; Start 06/28/16 at 16:00; Stop 06/28/16 at 16:01; Status DC Polyethylene Glycol (miraLAX PACKET) 17 gm DAILY PO ; Start 06/28/16 at 15:00; Stop 06/29/16 at 10:20; Status DC Loperamide HCl (Imodium) 2 mg PRN Q15MIN PRN PO DIARRHEA; Start 06/29/16 at 10: 30 Levetiracetam (Keppra) 500 mg BID PO Last administered on 07/05/16 21:21; Start 06/29/16 at 11:00 Warfarin Sodium (Coumadin) 6 mg 1X WARF ONCE PO Last administered on 17:21; Start 06/29/16 at 16:00; Stop 06/29/16 at 16:01; Status DC Metoprolol Tartrate (Lopressor) 12.5 mg BID PO ; Start 07/01/16 at 09:00 Warfarin Sodium (Coumadin) 8 mg 1X WARF ONCE PO Last administered on 17:07; Start 06/30/16 at 16:00; Stop 06/30/16 at 16:01; Status DC Warfarin Sodium (Coumadin) 7.5 mg 1X WARF ONCE PO Last administered on 17:47; Start 07/01/16 at 16:00; Stop 07/01/16 at 16:01; Status DC Warfarin Sodium (Coumadin) 6 mg 1X WARF ONCE PO Last administered on 16:28; Start 07/02/16 at 16:00; Stop 07/02/16 at 16:01; Status DC Warfarin Sodium (Coumadin) 7.5 mg 1X WARF ONCE PO Last administered on 16:06; Start 07/04/16 at 16:00; Stop 07/04/16 at 16:01; Status DC Warfarin Sodium (Coumadin) 7.5 mg 1X ONCE PO Last administered on 07/05/16 16 :16; Start 07/05/16 at 16:00; Stop 07/05/16 at 16:01; Status DC Active Scripts Active Reported Coumadin (Warfarin Sodium) 5 Mg Tablet 1 Tab PO DAILY Metoprolol Succinate ( Xl ) (Metoprolol Succinate) 25 Mg Tab.er.24h 25 Mg PO DAILY Vitals/I & O Vital Sign - Last 24 Hours 07/05/16 07/05/16 07/05/16 07/05/16 12:00 15:06 19:00 20:00 Temp 97.7 97.5 97.5 97.7 97.5 97.5 Pulse 73 79 84 Resp 18 B/P 93/52 96/63 104/63 Pulse Ox 95 98 97 O2 Delivery Room Air Room Air Room Air Room Air 07/05/16 07/06/16 07/06/16 07/06/16 23:24 03:26 07:00 08:40 Temp 97.9 97.7 97.7 97.7 97.9 97.7 97.7 97.7 Pulse 85 83 84 84 Resp 12 B/P 100/64 96/59 98/64 98/64 Pulse Ox 98 98 96 96 O2 Delivery Room Air Room Air Room Air Room Air Intake and Output 07/05/16 07/05/16 07/06/16 15:00 23:00 07:00 Intake Total 360 ml 120 ml 100 ml Balance 360 ml 120 ml 100 ml NATE LINCOLN APRN Jul 06, 2016 10:00
--- NOTE | 2016-07-06 10:48 | RAD ---
Exam performed: CT head without contrast. History: Follow-up subdural hemorrhage. Date of service: 07/06/16. Comparison: CT head without contrast from 06/24/16. Technique: Contiguous helical acquisitions are obtained from the foramen magnum to the vertex without IV contrast. Findings: Postoperative changes are redemonstrated. Gema holes are seen in both frontal regions. Resolving extra-axial fluid collections consistent with previously seen subdural hematomas are noted. The degree of pneumocephalus appears resolved. There is a new 2.8 cm intraparenchymal hematoma in the upper parietal region seen best on axial images 26 through 29, series 2. No midline shift or mass effect is seen. The ventricles are midline without evidence of dilatation. Normal connelly-white differentiation is maintained. There is no extra axial fluid collection, intraparenchymal hemorrhage or mass or acute infarct. Visualized portions of the orbits, paranasal sinuses and the mastoid air cells are clear. Impression: Small new acute intraparenchymal hematoma in the left upper parietal region as outlined above. Postoperative changes bilateral Maurepas holes with evacuation of subdural hematoma. Significant interval decrease in previously seen subdural hematoma and resolution of pneumocephalus. The critical results were given to Shanika, the nurse taking care of the patient on the floor after completion of the study
--- NOTE | 2016-07-06 14:51 | PDOC ---
PROGRESS NOTES Chief Complaint Chief Complaint 1. . Marfans syndrome 1. Acute, nontraumatic bilateral subdural hematomas: s/p bilat nela holes on 06/13, 06/16. 06/23. 2. Metabolic encephalopathy: improved, 3. Marfan's syndrome; with hx of aortic and mitral valve replacements 4. Chronic anticoag (for AVR): coumadin restarted, 5. HTN: well controlled 6. Dysphagia: resolved. 7. L eye blindness: chronic plan: 1. fu with neurosx 2. cont coumadin, INR 2.5 to 3.[address] PTOT, not good in stairs, no insurance, dc home self tmr History of Present Illness History of Present Illness NO acute medical issues being addressed for about a week now Dw SW - still working on medicaid PLAN:dc when dc location is known SW on case Will ff up with neurosx for removal of navid in about a week (less than a week now) Vitals Vitals Vital Signs Date Time Temp Pulse Resp B/P Pulse Ox O2 Delivery O2 Flow Rate FiO2 07/06/16 11:10 97.5 74 14 87/54 95 Room Air 97.5 Physical Exam Physical Exam suture healing well on scalp General: Alert, Oriented X3, Cooperative, No acute distress Heart: Regular rate, Normal S1 Lungs: Clear, Other Abdomen: Normal bowel sounds, Soft, No tenderness Extremities: No clubbing, No edema Skin: Other (incisions healing well, all navid removed except 3 left on left ) Labs LABS Laboratory Tests Test 07/06/16 03:50 Prothrombin Time 29.5SEC (11.7-14.0) Prothromb Time International Ratio 3.0 (0.8-1.1) Review of Systems Review of Systems no fever, chills, sob or chest pain Assessment and Plan Assessmemt and Plan Problems Medical Problems: (1) Subdural hematoma Status: Acute (2) Supratherapeutic INR Status: Acute Problems: Comment Review of Relevant I have reviewed the following items jordy (where applicable) has been applied. Labs Laboratory Tests Test 07/05/16 05:15 07/06/16 03:50 Prothrombin Time 27.7SEC (11.7-14.0) 29.5SEC (11.7-14.0) Prothromb Time International Ratio 2.8 (0.8-1.1) 3.0 (0.8-1.1) Laboratory Tests Test 07/06/16 03:50 Prothrombin Time 29.5SEC (11.7-14.0) Prothromb Time International Ratio 3.0 (0.8-1.1) Microbiology 06/13/16 Urine Culture - Final, Complete 06/13/16 Urine Culture Result 1 (GLENN) - Final, Complete Medications Current Medications Sodium Chloride (Iv Sodium Chloride 0.9% 1000ml Bag) 1,000 ml @ 100 mls/hr 1X ONCE IV Last administered on 06/13/16 13:45; Start 06/13/16 at 13:45; Stop at 23:44; Status DC Phytonadione (Mephyton) 10 mg 1X ONCE PO Last administered on 06/13/16 15:03; Start 06/13/16 at 15:00; Stop 06/13/16 at 15:01; Status DC Ondansetron HCl 4 mg 4 mg PRN Q8HRS PRN IV NAUSEA/VOMITING; Start 06/13/16 at 16 :15; Stop 06/14/16 at 16:14; Status DC Sodium Chloride (Iv Sodium Chloride 0.9% 1000ml Bag) 1,000 ml @ 100 mls/hr Q10H IV Last administered on 06/14/16 05:49; Start 06/13/16 at 16:10; Stop at 13:20; Status DC Morphine Sulfate 2 mg 1X ONCE IV Last administered on 06/13/16 18:08; Start at 18:30; Stop 06/13/16 at 18:31; Status DC Oxycodone/ Acetaminophen (Percocet 5/325) 1 tab PRN Q4HRS PRN PO MILD-MOD PAIN Last administered on 06/28/16 22:28; Start 06/13/16 at 18:00 Oxycodone/ Acetaminophen (Percocet 5/325) 2 tab PRN Q4HRS PRN PO SEVERE PAIN Last administered on 06/26/16 21:43; Start 06/13/16 at 18:00 Metoprolol Succinate (Toprol Xl) 25 mg DAILY PO Last administered on 06/30/16 08:13; Start 06/14/16 at 09:00; Stop 06/30/16 at 09:09; Status DC Lorazepam 2 mg 2 mg PRN Q4HRS PRN IV ANXIETY / AGITATION Last administered on 14:33; Start 06/13/16 at 19:45 Levetiracetam 500 mg/Sodium Chloride 105 ml @ 400 mls/hr PRN Q12HRS PRN IV SEIZURES; Start 06/13/16 at 19:45; Stop 06/29/16 at 10:20; Status DC Potassium Chloride/Sodium Chloride (KCl 20 Meq-0.45% Nacl) 1,000 ml @ 100 mls/ hr Q10H IV Last administered on 06/17/16 03:24; Start 06/14/16 at 13:30; Stop 06/17/16 at 12:24; Status DC Warfarin Sodium (Coumadin Per Pharmacy) 1 each PRN DAILY PRN MC SEE COMMENTS Last administered on 07/06/16 11:11; Start 06/14/16 at 16:00 Warfarin Sodium 2.5 mg 2.5 mg 1X WARF ONCE PO ; Start 06/14/16 at 17:00; Stop at 17:01; Status Cancel Bacitracin/Sodium Chloride (Iv Sodium Chloride 0.9% 1000ml Bag) 1,000 ml @ 1, 000 mls/hr 1X PERIOP ONCE IRR Last administered on 06/15/16 12:41; Start at 10:00; Stop 06/15/16 at 10:59; Status DC Ondansetron HCl (Zofran) 4 mg PRN Q6HRS PRN IV Nausea; Start 06/15/16 at 10:00; Stop 06/16/16 at 09:59; Status DC Fentanyl Citrate (Fentanyl 2ml Vial) 25 mcg PRN Q5MIN PRN IV MILD PAIN; Start 06/15/16 at 10:00; Stop 06/16/16 at 09:59; Status DC Fentanyl Citrate (Fentanyl 2ml Vial) 50 mcg PRN Q5MIN PRN IV MODERATE PAIN; Start 06/15/16 at 10:00; Stop 06/16/16 at 09:59; Status DC Morphine Sulfate 1 mg 1 mg PRN Q10MIN PRN IV SEVERE PAIN; Start 06/15/16 at 10: 00; Stop 06/16/16 at 09:59; Status DC Lactated Ringer's (Iv Lactated Ringers) 1,000 ml @ 30 mls/hr Q24H IV ; Start at 09:47; Stop 06/15/16 at 21:46; Status DC Lidocaine HCl 2 ml 1X PRN PRN ID IV START; Start 06/15/16 at 10:00; Stop at 09:59; Status DC Hydromorphone HCl (Dilaudid) 0.5 mg PRN Q10MIN PRN IV SEV PAIN,Second choice; Start 06/15/16 at 10:00; Stop 06/16/16 at 09:59; Status DC Prochlorperazine Edisylate (Compazine) 5 mg PACU PRN PRN IV NAUSEA; Start at 10:00; Stop 06/16/16 at 09:59; Status DC Phytonadione (Vitamin K) 2 mg 1X ONCE SQ Last administered on 06/15/16t 11:21; Start 06/15/16 at 09:45; Stop 06/15/16 at 09:57; Status DC Dexamethasone Sodium Phosphate (Decadron) 20 mg STK-MED ONCE .ROUTE ; Start 06/15 at 10:26; Stop 06/15/16 at 10:27; Status DC Ondansetron HCl (Zofran) 4 mg STK-MED ONCE .ROUTE ; Start 06/15/16 at 10:26; Stop 06/15/16 at 10:27; Status DC Rocuronium [place] 50 mg 50 mg STK-MED ONCE .ROUTE ; Start 06/15/16 at 10:26; Stop 06/15/16 at 10:27; Status DC Propofol (Diprivan) 20 ml @ As Directed STK-MED ONCE IV ; Start 06/15/16 at 10:26 ; Stop 06/15/16 at 10:27; Status DC Lidocaine HCl 100 mg STK-MED ONCE .ROUTE ; Start 06/15/16 at 10:26; Stop 06/15/16 at 10:27; Status DC Fentanyl Citrate (Fentanyl 2ml Vial) 100 mcg STK-MED ONCE .ROUTE ; Start at 10:26; Stop 06/15/16 at 10:27; Status DC Thrombin 20,000 unit STK-MED ONCE TP Last administered on 06/15/16 12:41; Start 06/15/16 at 10:47; Stop 06/15/16 at 10:48; Status DC Gelatin (Gelfoam Size 100) 1 each STK-MED ONCE .ROUTE Last administered on 06/15 12:41; Start 06/15/16 at 10:48; Stop 06/15/16 at 10:49; Status DC Bupivacaine HCl/ Epinephrine Bitart (Sensorcaine-Epi 0.25%-1:431082 Mpf) 30 ml STK-MED ONCE .ROUTE Last administered on 06/15/16 12:41; Start 06/15/16 at 10:48 ; Stop 06/15/16 at 10:49; Status DC Cellulose 1 each STK-MED ONCE .ROUTE ; Start 06/15/16 at 10:49; Stop 06/15/16 at 10:50; Status DC Potassium Chloride 20 meq 20 meq 1X ONCE PO Last administered on 06/15/16 11: 21; Start 06/15/16 at 11:15; Stop 06/15/16 at 11:16; Status DC Cefazolin Sodium/ Dextrose (Ancef 2gm Premix) 50 ml @ 100 mls/hr 1X PREOP PRN IV PER PROTOCOL Last administered on 06/15/16 12:56; Start 06/16/16 at 06:00; Stop 06/16/16 at 18:00; Status DC Ephedrine Sulfate 50 mg STK-MED ONCE IV ; Start 06/15/16 at 13:04; Stop 06/15/16 at 13:05; Status DC Glycopyrrolate (Robinul) 1 mg STK-MED ONCE .ROUTE ; Start 06/15/16 at 13:39; Stop 06/15/16 at 13:40; Status DC Neostigmine Methylsulfate 5 mg STK-MED ONCE .ROUTE ; Start 06/15/16 at 13:39; Stop 06/15/16 at 13:40; Status DC Fentanyl Citrate (Fentanyl 2ml Vial) 100 mcg STK-MED ONCE .ROUTE ; Start at 13:55; Stop 06/15/16 at 13:56; Status DC Sevoflurane (Ultane) 30 ml STK-MED ONCE IH ; Start 06/15/16 at 13:55; Stop at 13:56; Status DC Sevoflurane (Ultane) 60 ml STK-MED ONCE IH ; Start 06/15/16 at 13:55; Stop at 13:56; Status DC Warfarin Sodium (Coumadin - No Dose Today) 1 each 1X WARF ONCE MC Last administered on 06/15/16 16:00; Start 06/15/16 at 16:00; Stop 06/15/16 at 16:01; Status DC Cefazolin Sodium/ Dextrose (Ancef 2gm Premix) 2 gm STK-MED ONCE IV ; Start at 13:00; Stop 06/16/16 at 08:05; Status DC Famotidine (Pepcid) 20 mg BID IVP ; Start 06/16/16 at 21:00; Stop 06/16/16 at 21 :00; Status DC Famotidine (Pepcid) 20 mg BID PO Last administered on 07/06/16 09:58; Start at 13:00 Warfarin Sodium (Coumadin) 5 mg 1X WARF ONCE PO Last administered on 18:15; Start 06/17/16 at 16:00; Stop 06/17/16 at 16:01; Status DC Warfarin Sodium (Coumadin) 7.5 mg 1X WARF ONCE PO Last administered on 16:25; Start 06/18/16 at 16:00; Stop 06/18/16 at 16:01; Status DC Ondansetron HCl (Zofran) 4 mg PRN Q6HRS PRN IV NAUSEA/VOMITING Last administered on 06/28/16 03:05; Start 06/19/16 at 03:00 Morphine Sulfate 2 mg PRN Q2HR PRN IV PAIN Last administered on 06/20/16 08:06 ; Start 06/19/16 at 03:00; Stop 06/20/16 at 10:14; Status DC Warfarin Sodium 7.5 mg 7.5 mg 1X WARF ONCE PO ; Start 06/19/16 at 16:00; Stop 06/19/16 at 16:01; Status DC Amino Acids/ Glycerin/ Electrolytes (Procalamine) 1,000 ml @ 75 mls/hr [id number] IV Last administered on 06/23/16 01:06; Start 06/19/16 at 16:15; Stop at 10:24; Status DC Fentanyl Citrate (Fentanyl 2ml Vial) 50 mcg Q6HRS PRN IM BREAKTHROUGH PAIN; Start 06/20/16 at 10:15; Stop 06/20/16 at 11:08; Status DC Fentanyl Citrate (Fentanyl 2ml Vial) 50 mcg PRN Q6HRS PRN IV BREAKTHROUGH PAIN Last administered on 06/22/16 22:11; Start 06/20/16 at 11:15 Warfarin Sodium (Coumadin) 7.5 mg 1X WARF ONCE PO ; Start 06/20/16 at 16:00; Stop 06/20/16 at 16:01; Status DC Enoxaparin Sodium (Lovenox Per Pharmacy Treatment Dosing) 1 each PRN DAILY PRN MC SEE COMMENTS; Start 06/21/16 at 12:30; Stop 06/22/16 at 12:29; Status DC Enoxaparin Sodium 60 mg 60 mg Q12HR SQ Last administered on 06/22/16 21:13; Start 06/21/16 at 13:00; Stop 06/23/16 at 10:24; Status DC Bacitracin/Sodium Chloride (Iv Sodium Chloride 0.9% 1000ml Bag) 1,000 ml @ 1, 000 mls/hr 1X PERIOP ONCE IRR ; Start 06/22/16 at 09:00; Stop 06/22/16 at 09:59 ; Status DC Ondansetron HCl (Zofran) 4 mg PRN Q6HRS PRN IV Nausea; Start 06/22/16 at 09:00 ; Stop 06/22/16 at 18:00; Status DC Fentanyl Citrate (Fentanyl 2ml Vial) 25 mcg PRN Q5MIN PRN IV MILD PAIN; Start 06/22/16 at 09:00; Stop 06/22/16 at 18:00; Status DC Fentanyl Citrate (Fentanyl 2ml Vial) 50 mcg PRN Q5MIN PRN IV MODERATE PAIN Last administered on 06/22/16 17:20; Start 06/22/16 at 09:00; Stop 06/22/16 at 18:00; Status DC Morphine Sulfate 1 mg 1 mg PRN Q10MIN PRN IV SEVERE PAIN; Start 06/22/16 at 09: 00; Stop 06/22/16 at 18:00; Status DC Lactated Ringer's (Iv Lactated Ringers) 1,000 ml @ 30 mls/hr Q24H IV Last administered on 06/22/16 10:55; Start 06/22/16 at 08:52; Stop 06/22/16 at 20:51 ; Status DC Lidocaine HCl 2 ml 1X PRN PRN ID IV START; Start 06/22/16 at 09:00; Stop at 18:00; Status DC Hydromorphone HCl (Dilaudid) 0.5 mg PRN Q10MIN PRN IV SEV PAIN,Second choice; Start 06/22/16 at 09:00; Stop 06/22/16 at 18:00; Status DC Prochlorperazine Edisylate (Compazine) 5 mg PACU PRN PRN IV NAUSEA; Start 06/22 at 09:00; Stop 06/22/16 at 18:00; Status DC Bupivacaine HCl/ Epinephrine Bitart (Sensorcaine-Epi 0.25%-1:419099 Mpf) 30 ml STK-MED ONCE .ROUTE Last administered on 06/22/16 12:21; Start 06/22/16 at 09: 22; Stop 06/22/16 at 09:23; Status DC Cellulose 1 each STK-MED ONCE .ROUTE ; Start 06/22/16 at 09:22; Stop 06/22/16 at 09:23; Status DC Thrombin 20,000 unit STK-MED ONCE TP Last administered on 06/22/16 12:21; Start 06/22/16 at 09:22; Stop 06/22/16 at 09:23; Status DC Gelatin 1 each 1 each STK-MED ONCE .ROUTE Last administered on 06/22/16 12:21 ; Start 06/22/16 at 09:23; Stop 06/22/16 at 09:24; Status DC Propofol (Diprivan) 20 ml @ As Directed STK-MED ONCE IV ; Start 06/22/16 at 09: 57; Stop 06/22/16 at 09:58; Status DC Lidocaine HCl 100 mg STK-MED ONCE .ROUTE ; Start 06/22/16 at 09:57; Stop at 09:58; Status DC Rocuronium [place] (Zemuron) 50 mg STK-MED ONCE .ROUTE ; Start 06/22/16 at 09:57 ; Stop 06/22/16 at 09:58; Status DC Ondansetron HCl (Zofran) 4 mg STK-MED ONCE .ROUTE ; Start 06/22/16 at 09:58; Stop 06/22/16 at 09:59; Status DC Dexamethasone Sodium Phosphate (Decadron) 20 mg STK-MED ONCE .ROUTE ; Start at 09:58; Stop 06/22/16 at 09:59; Status DC Fentanyl Citrate 100 mcg 100 mcg STK-MED ONCE .ROUTE ; Start 06/22/16 at 09:59; Stop 06/22/16 at 10:00; Status DC Cefazolin Sodium/ Dextrose (Ancef 2gm Premix) 50 ml @ 100 mls/hr 1X PREOP IV Last administered on 06/22/16t 12:37; Start 06/22/16 at 10:15; Stop 06/28/16 at 12:06; Status DC Metoprolol Tartrate (Lopressor) 5 mg STK-MED ONCE .ROUTE ; Start 06/22/16 at 11: 05; Stop 06/22/16 at 11:06; Status DC Metoprolol Tartrate (Lopressor) 5 mg 1X ONCE IVP Last administered on t 11:12; Start 06/22/16 at 11:15; Stop 06/22/16 at 11:16; Status DC Ephedrine Sulfate 50 mg STK-MED ONCE IV ; Start 06/22/16 at 12:11; Stop at 12:12; Status DC Glycopyrrolate (Robinul) 1 mg STK-MED ONCE .ROUTE ; Start 06/22/16 at 12:40; Stop 06/22/16 at 12:41; Status DC Neostigmine Methylsulfate 5 mg STK-MED ONCE .ROUTE ; Start 06/22/16 at 12:40; Stop 06/22/16 at 12:41; Status DC Sevoflurane 60 ml 60 ml STK-MED ONCE IH ; Start 06/22/16 at 13:05; Stop at 13:06; Status DC Cefazolin Sodium/ Sodium Chloride (Ancef/Iv Sodium Chloride 0.9% 50ml) 50 ml @ 100 mls/hr Q8HRS IV Last administered on 06/29/16 06:32; Start 06/22/16 at 23: 00; Stop 06/29/16 at 10:20; Status DC Warfarin Sodium (Coumadin) 7.5 mg 1X WARF ONCE PO Last administered on 17:06; Start 06/23/16 at 16:00; Stop 06/23/16 at 16:01; Status DC Enoxaparin Sodium (Lovenox 60mg Syringe) 60 mg Q12HR SQ Last administered on 08:08; Start 06/24/16 at 21:00; Stop 06/30/16 at 09:09; Status DC Warfarin Sodium (Coumadin) 7.5 mg 1X WARF ONCE PO Last administered on 15:35; Start 06/24/16 at 16:00; Stop 06/24/16 at 16:01; Status DC Warfarin Sodium (Coumadin) 5 mg 1X WARF ONCE PO Last administered on 16:49; Start 06/25/16 at 16:00; Stop 06/25/16 at 16:01; Status DC Alprazolam (Xanax) 0.25 mg PRN Q6HRS PRN PO ANXIETY / AGITATION Last administered on 07/02/16 21:14; Start 06/26/16 at 08:00 Potassium Chloride (Klor-Con) 20 meq BID PO Last administered on 06/26/16 20: 06; Start 06/26/16 at 10:15; Stop 06/26/16 at 23:55; Status DC Warfarin Sodium 6 mg 6 mg 1X WARF ONCE PO Last administered on 06/26/16 16:19 ; Start 06/26/16 at 16:00; Stop 06/26/16 at 16:01; Status DC Sodium Chloride (Iv Sodium Chloride 0.9% 1000ml Bag) 1,000 ml @ 75 mls/hr 1X ONCE IV Last administered on 06/27/16 10:26; Start 06/27/16 at 10:15; Stop at 23:34; Status DC Info (Anti-Coagulation Monitoring By Pharmacy) 1 each PRN DAILY PRN MC SEE COMMENTS Last administered on 06/27/16 14:33; Start 06/27/16 at 14:30; Stop at 10:43; Status DC Warfarin Sodium (Coumadin) 7.5 mg 1X WARF ONCE PO Last administered on 16:29; Start 06/27/16 at 16:00; Stop 06/27/16 at 16:01; Status DC Polyethylene Glycol (miraLAX PACKET) 17 gm PRN BID PRN PO CONSTIPATION Last administered on 06/28/16 13:49; Start 06/28/16 at 12:30; Stop 06/29/16 at 10:20 ; Status DC Bisacodyl (Dulcolax Supp) 10 mg PRN DAILY PRN RI CONSTIPATION Last administered on 06/28/16 14:24; Start 06/28/16 at 13:45 Warfarin Sodium (Coumadin) 7.5 mg 1X WARF ONCE PO Last administered on 17:32; Start 06/28/16 at 16:00; Stop 06/28/16 at 16:01; Status DC Polyethylene Glycol (miraLAX PACKET) 17 gm DAILY PO ; Start 06/28/16 at 15:00; Stop 06/29/16 at 10:20; Status DC Loperamide HCl (Imodium) 2 mg PRN Q15MIN PRN PO DIARRHEA; Start 06/29/16 at 10: 30 Levetiracetam (Keppra) 500 mg BID PO Last administered on 07/06/16 09:58; Start 06/29/16 at 11:00 Warfarin Sodium (Coumadin) 6 mg 1X WARF ONCE PO Last administered on 17:21; Start 06/29/16 at 16:00; Stop 06/29/16 at 16:01; Status DC Metoprolol Tartrate (Lopressor) 12.5 mg BID PO ; Start 07/01/16 at 09:00 Warfarin Sodium (Coumadin) 8 mg 1X WARF ONCE PO Last administered on 17:07; Start 06/30/16 at 16:00; Stop 06/30/16 at 16:01; Status DC Warfarin Sodium (Coumadin) 7.5 mg 1X WARF ONCE PO Last administered on 17:47; Start 07/01/16 at 16:00; Stop 07/01/16 at 16:01; Status DC Warfarin Sodium (Coumadin) 6 mg 1X WARF ONCE PO Last administered on 16:28; Start 07/02/16 at 16:00; Stop 07/02/16 at 16:01; Status DC Warfarin Sodium (Coumadin) 7.5 mg 1X WARF ONCE PO Last administered on 16:06; Start 07/04/16 at 16:00; Stop 07/04/16 at 16:01; Status DC Warfarin Sodium (Coumadin) 7.5 mg 1X ONCE PO Last administered on 07/05/16 16 :16; Start 07/05/16 at 16:00; Stop 07/05/16 at 16:01; Status DC Warfarin Sodium (Coumadin) 7.5 mg 1X WARF ONCE PO ; Start 07/06/16 at 16:00; Stop 07/06/16 at 16:01 Active Scripts Active Reported Coumadin (Warfarin Sodium) 5 Mg Tablet 1 Tab PO DAILY Metoprolol Succinate ( Xl ) (Metoprolol Succinate) 25 Mg Tab.er.24h 25 Mg PO DAILY Vitals/I & O Vital Sign - Last 24 Hours 07/05/16 07/05/16 07/05/16 07/05/16 15:06 19:00 20:00 23:24 Temp 97.5 97.5 97.9 97.5 97.5 97.9 Pulse 79 84 85 Resp 18 18 18 B/P 96/63 104/63 100/64 Pulse Ox 98 97 98 O2 Delivery Room Air Room Air Room Air Room Air 07/06/16 07/06/16 07/06/16 07/06/16 03:26 07:00 08:00 08:40 Temp 97.7 97.7 97.7 97.7 97.7 97.7 Pulse 83 84 84 Resp 18 12 12 B/P 96/59 98/64 98/64 Pulse Ox 98 96 96 O2 Delivery Room Air Room Air Room Air Room Air 07/06/16 07/06/16 09:00 11:10 Temp 97.5 97.5 Pulse 84 74 Resp 14 B/P 98/64 87/54 Pulse Ox 95 O2 Delivery Room Air Intake and Output 07/05/16 07/05/16 07/06/16 15:00 23:00 07:00 Intake Total 360 ml 120 ml 100 ml Balance 360 ml 120 ml 100 ml DAISY LEWIS MD Jul 06, 2016 14:51
--- NOTE | 2016-07-06 15:46 | PDOC ---
PROGRESS NOTES Assessment Assessment Bilateral SDH, status post bilateral nela holes. Headache, improved. Metabolic encephalopathy Marfan's syndrome, s/p aortic and mitral valve replacements. Left eye vision loss. RECOMMENDATIONS/PLAN: Kathrine if has seizures. Cardiology wanted to resume anticoagulant. OT/PT. Rehab. FU with NS. FU with Neurology. FU with Cardiology. FU with PCP. Discussed in all detail with his brother at bedside. SUBJECTIVE: Headaches resolved. OBJECTIVE: No new neurological deficits. PAST MEDICAL AND SURGICAL HISTORY: Please see H&P ALLERGY: Reviewed. MEDICATIONS: Refer to [facility] REVIEW OF SYSTEMS: Constitutional: No cachexia. Head: No recent traumatic brain or head injury. Skin: No edema, or rash. Ear: No infection, tinnitus. Eyes: No vision loss, or diplopia. Nose: No bleeding or purulent discharges. Hearing: No hearing decrease. Neck: No injury. Cardiac: Marfan's syndrome. Pulmonary: No COPD. GI: No GI Ulcer, GI bleeding Urinary/genital: No dysuria, hematuria, incontinence, urinary retention. Endocrine: No cousin face, craniofacial dysmorphism, polydactyly Skeletomuscular: No muscular atrophy. Neurological: see HP. Psychiatric: Denies drug use/abuse. Otherwise, not [id number] review of systems. PHYSICAL EXAMINATION: General appearance in no acute distress. HEENT: Normocephalic and nontraumatic. Eyes, nose, ears, and throat are unremarkable. Hearing decrease. Neck is supple. No lymphadenopathy. No bruits are heard over the carotid artery. No Crepitus. Cardiovascular: S1, S2, regular rate and rhythm. Pulmonary: Clear to auscultation bilaterally. Abdomen: Bowel sounds are positive. Extremities: No rash, lesions, or edema. No restriction of range of motion NEUROLOGICAL EXAMINATION: Alert. Oriented to time, place and person. PERRL. EOMI. CN: no focal findings. Muscle tone: within normal. Muscle strength: 5- DTR: 2 Plantar reflex: Neutral response bilaterally Gait: able to walk with a walker. Sensory exam: no abnormal findings. No obvious cerebellar signs elicited. F-T-N test fine. Objective Objective Vital Signs Date Time Temp Pulse Resp B/P Pulse Ox O2 Delivery O2 Flow Rate FiO2 07/06/16 11:10 97.5 74 14 87/54 95 Room Air 97.5 Intake and Output 07/06/16 07:00 Intake Total 580 ml Balance 580 ml Intake Oral 580 ml # Voids 2 Vitals Signs Vitals VS - Last 72 Hours, by Label Date Time Temp Pulse Resp B/P Pulse Ox O2 Delivery O2 Flow Rate FiO2 07/06/16 11:10 97.5 74 14 87/54 95 Room Air 97.5 07/06/16 09:00 84 98/64 07/06/16 08:40 97.7 84 12 98/64 96 Room Air 97.7 07/06/16 08:00 Room Air 07/06/16 07:00 97.7 84 12 98/64 96 Room Air 97.7 07/06/16 03:26 97.7 83 18 96/59 98 Room Air 97.7 07/05/16 23:24 97.9 85 18 100/64 98 Room Air 97.9 07/05/16 20:00 Room Air 07/05/16 19:00 97.5 84 18 104/63 97 Room Air 97.5 07/05/16 15:06 97.5 79 18 96/63 98 Room Air 97.5 07/05/16 12:00 97.7 73 18 93/52 95 Room Air 97.7 07/05/16 08:46 64 106/65 07/05/16 08:05 Room Air 07/05/16 08:01 94.5 74 18 106/65 94 Room Air 94.5 Laboratory Laboratory Laboratory Tests Test 07/06/16 03:50 Prothrombin Time 29.5SEC (11.7-14.0) Prothromb Time International Ratio 3.0 (0.8-1.1) Microbiology 06/13/16 Urine Culture - Final, Complete 06/13/16 Urine Culture Result 1 (GLENN) - Final, Complete Medication Medications Current Medications Warfarin Sodium (Coumadin) 7.5 mg 1X ONCE PO Last administered on 07/05/16t 16 :16; Start 07/05/16 at 16:00; Stop 07/05/16 at 16:01; Status DC Warfarin Sodium (Coumadin) 7.5 mg 1X WARF ONCE PO ; Start 07/06/16 at 16:00; Stop 07/06/16 at 16:01 Comment Review of Relevant I have reviewed the following items jordy (where applicable) has been applied. SHANEKA GOSS MD Jul 06, 2016 15:45
[2016-07-06] MEDS ORDERED: WARFARIN 7.5 MG TABLET. PO ONE (16:00)
[2016-07-07 03:10] VITALS: BP 101/57
[2016-07-07 07:00] VITALS: BP 90/63
[2016-07-07] MEDS: FAMOTIDINE 20 MG TABLET. PO SCH (08:44)
[2016-07-07] MEDS: LEVETIRACETAM 500 MG TABLET PO SCH (08:44)
[2016-07-07] MEDS: METOPROLOL TART IMMED RELEASE 25 MG TABLET PO SCH (08:51)
[2016-07-07 11:00] VITALS: BP 95/53
[2016-07-07] MEDS ORDERED: LEVE500T56 PO (11:06)
--- NOTE | 2016-07-07 11:39 | PDOC3 ---
Discharge Summary [facility] Date of Admission: Jun 13, 2016 Discharge Date: Jul 07, 2016 Admitting Diagnosis 1. . Marfans syndrome 1. Acute, nontraumatic bilateral subdural hematomas: s/p bilat nela holes on 06/13, 06/16. 06/23. 2. Metabolic encephalopathy: improved, 3. Marfan's syndrome; with hx of aortic and mitral valve replacements 4. Chronic anticoag (for AVR): coumadin restarted, 5. HTN 6. Dysphagia 7. L eye blindness: Problems: Final Diagnosis Problems Medical Problems: (1) Subdural hematoma Status: Acute (2) Supratherapeutic INR Status: Acute CONSULTS neurosx neuro card Brief Hospital Course Mr. Fraga is a 50 old M, marfans syndrome, had h/o MVR, AVR, on warfarin , came for headache, was found subdural hematoma, nontraumatic, s/p bl nela holes 3 times. INR >4 at admission. Pt feels good now, still weak, improving with PTOT, living at home with brothers hourse basement. Unfortunately, pt has no insurance, no HH can be done or SNF. Warfarin restarted, INR goal 2.5 to 3.5. dc home with warfarin, fu with neurosx next week to remove remaining head navid. asked pt to repeat iNR by this Wednesday. dc time 35min suture healing well on scalp General: Alert, Oriented X3, Cooperative, No acute distress Heart: Regular rate, Normal S1 Lungs: Clear, Other Abdomen: Normal bowel sounds, Soft, No tenderness Extremities: No clubbing, No edema Skin: Other (incisions healing well, all navid removed except 3 left on left ) Patient History: Family history: Cardiovascular disease (situation) 33 FATHER 32 MOTHER Family history: Diabetes mellitus (situation) G8 BROTHER Marfan syndrome 32 MOTHER Problems: Disposition home CONDITION AT DISCHARGE: Improved, Stable Diet cardiac Scheduled Levetiracetam (Keppra) 500 MG PO BID Metoprolol Succinate (Metoprolol Succinate ( Xl )) 25 MG PO DAILY (Reported) Warfarin Sodium (Coumadin) 1 TAB PO DAILY (Reported) Follow Up neuro, neurosx, card in1 week DAISY LEWIS MD Jul 07, 2016 11:39
--- NOTE | 2016-07-07 14:45 | PDOC ---
PROGRESS NOTES Assessment Assessment Bilateral SDH, status post bilateral nela holes. Headache, improved. Metabolic encephalopathy Marfan's syndrome, s/p aortic and mitral valve replacements. Left eye vision loss. RECOMMENDATIONS/PLAN: Cardiology wanted to resume anticoagulant. FU with NS. FU with Neurology as needed. FU with Cardiology. FU with PCP. SUBJECTIVE: Headaches resolved. OBJECTIVE: No new neurological deficits. PAST MEDICAL AND SURGICAL HISTORY: Please see H&P ALLERGY: Reviewed. MEDICATIONS: Refer to [facility] REVIEW OF SYSTEMS: Constitutional: No cachexia. Head: No recent traumatic brain or head injury. Skin: No edema, or rash. Ear: No infection, tinnitus. Eyes: No vision loss, or diplopia. Nose: No bleeding or purulent discharges. Hearing: No hearing decrease. Neck: No injury. Cardiac: Marfan's syndrome. Pulmonary: No COPD. GI: No GI Ulcer, GI bleeding Urinary/genital: No dysuria, hematuria, incontinence, urinary retention. Endocrine: No cousin face, craniofacial dysmorphism, polydactyly Skeletomuscular: No muscular atrophy. Neurological: see HP. Psychiatric: Denies drug use/abuse. Otherwise, not [id number] review of systems. PHYSICAL EXAMINATION: General appearance in no acute distress. HEENT: Normocephalic and nontraumatic. Eyes, nose, ears, and throat are unremarkable. Hearing decrease. Neck is supple. No lymphadenopathy. No bruits are heard over the carotid artery. No Crepitus. Cardiovascular: S1, S2, regular rate and rhythm. Pulmonary: Clear to auscultation bilaterally. Abdomen: Bowel sounds are positive. Extremities: No rash, lesions, or edema. No restriction of range of motion NEUROLOGICAL EXAMINATION: Alert. Oriented to time, place and person. PERRL. EOMI. CN: no focal findings. Muscle tone: within normal. Muscle strength: 5- DTR: 2 Plantar reflex: Neutral response bilaterally Gait: able to walk.. Sensory exam: no abnormal findings. No obvious cerebellar signs elicited. F-T-N test fine. Objective Objective Vital Signs Date Time Temp Pulse Resp B/P Pulse Ox O2 Delivery O2 Flow Rate FiO2 07/07/16 11:00 97.7 72 14 95/53 97 Room Air 97.7 Intake and Output 07/07/16 07:00 Intake Total 120 ml Balance 120 ml Intake Oral 120 ml # Voids 4 Vitals Signs Vitals VS - Last 72 Hours, by Label Date Time Temp Pulse Resp B/P Pulse Ox O2 Delivery O2 Flow Rate FiO2 07/07/16 11:00 97.7 72 14 95/53 97 Room Air 97.7 07/07/16 08:51 85 90/63 07/07/16 07:49 Room Air 07/07/16 07:00 98.0 85 14 90/63 96 Room Air 98.0 07/07/16 03:10 98.1 53 18 101/57 96 Room Air 98.1 07/06/16 22:57 98.2 73 18 96/65 96 Room Air 98.2 07/06/16 20:20 Room Air 07/06/16 19:10 97.7 59 18 102/61 97 Room Air 97.7 07/06/16 15:00 98.1 84 14 108/60 96 Room Air 98.1 07/06/16 11:10 97.5 74 14 87/54 95 Room Air 97.5 07/06/16 09:00 84 98/64 07/06/16 08:40 97.7 84 12 98/64 96 Room Air 97.7 07/06/16 08:00 Room Air 07/06/16 07:00 97.7 84 12 98/64 96 Room Air 97.7 Laboratory Laboratory Microbiology 06/13/16 Urine Culture - Final, Complete 06/13/16 Urine Culture Result 1 (GLENN) - Final, Complete Medication Medications Current Medications Warfarin Sodium (Coumadin) 7.5 mg 1X WARF ONCE PO Last administered on t 18:30; Start 07/06/16 at 16:00; Stop 07/06/16 at 16:01; Status DC Warfarin Sodium (Coumadin) 7.5 mg DAILY16 PO ; Start 07/07/16 at 16:00 Comment Review of Relevant I have reviewed the following items jordy (where applicable) has been applied. SHANEKA GOSS MD Jul 07, 2016 14:45
[2016-07-07] MEDS ORDERED: WARFARIN 7.5 MG TABLET. PO SCH (16:00)
--- NOTE | 2016-07-08 23:47 | OP ---
DATE OF SURGERY: 06/22/2016 PREOPERATIVE DIAGNOSIS: Bilateral frontotemporal parietal subdural hematoma. POSTOPERATIVE DIAGNOSIS: Bilateral frontotemporal parietal subdural hematoma. OPERATION PERFORMED: Bilateral nela hole evacuations of chronic/subacute subdural hematomas with placement of right-sided subdural drain. OPERATIVE INDICATIONS: The patient is a very pleasant 50-year-old man with Marfan syndrome who has had extensive cardiac surgery and is on chronic anticoagulation. He previously underwent a nela hole evacuation of subdural hematoma from a frontoparietal position recently and for a time did well. However, it has recurred more prominently on the contralateral side, but also there is still some residual fluid on the left and I recommended further surgery with nela hole evacuation. The patient understood the surgery, the risk, the technique and expected postoperative course as did his brother who gave consent and wished for us to proceed. DESCRIPTION OF PROCEDURE: Following general endotracheal anesthesia, the patient was positioned supine with the head turned toward the right and a roll beneath his left shoulder. The right frontotemporal parietal region was then clipped, prepped and draped in the standard fashion. MARIVEL hose and AV impulse boots had been applied for DVT prophylaxis. Ancef 2 g was given less than 1 hour prior to initiation of the surgery. Using the CT, an incision was made over the posterior frontal region just at the edge of the hair line. I placed self retaining retractors and created a single nela hole with a high speed air drill. The dura was opened in a cruciate fashion and there was a medially aggressive dark liquified subdural hematoma. I irrigated copiously with warm saline and as I worked, the return became clear. I placed a drain in the subdural space and brought it out through a separate stab incision. A Gelfoam was placed over the nela hole side and a nela hole cover was placed, screws placed. The skin was then closed with absorbable sutures and skin navid. The patient's head was then turned contralaterally with a roll placed under the contralateral shoulder and the right frontal region was again prepped and draped in the standard fashion. The skin navid from his previous surgery had been removed. I reopened the skin and placed a self retaining retractor. I removed the nela hole cover and gently using suction and the bipolar, I worked my way down to the dura which I then gently reflected. There was again a small amount of subdural fluid which I irrigated for a time to fully clear. The size of the subdural on the right side was much smaller, I elected not to place a drain after I had fully evacuated this region. I again placed Gelfoam over the nela hole side. I placed a nela hole cover and screws were placed. The wound was irrigated copiously and then it closed in layers with absorbable suture and the skin was closed again with skin navid. The operation went well, the patient awakened uneventfully promptly, taken to recovery/to the ICU in excellent condition. I was quite pleased with the surgery. CONNIE ESTEVEZ MD DR: DEV/cyndi JOB#: [id number] / [id number]
== END 2016-07-07 15:40 | disposition home or self-care (01) | DRG 25 ==
LOC: ER 12:50 → 1 WEST ICU 14:52 → 4 NORTH 06-16 16:51 → 1 WEST ICU 06-22 13:41 → 4 NORTH 06-24 16:00
PROVIDERS: ADMIT Internal Medicine Hematology & Oncology; ATTEND Internal Medicine Hematology & Oncology
PROC: 30233L1 Transfusion of Nonautologous Fresh Plasma into Peripheral Vein, Percutaneous Approach (ICD-10-PCS; 2016-06-15)
PROC: 30233K1 Transfusion of Nonautologous Frozen Plasma into Peripheral Vein, Percutaneous Approach (ICD-10-PCS; 2016-06-15)
PROC: 00C43ZZ Extirpation of Matter from Intracranial Subdural Space, Percutaneous Approach (ICD-10-PCS; principal; 2016-06-15 12:00)
DX: I62.01 Nontraumatic acute subdural hemorrhage (principal); G93.41 Metabolic encephalopathy; H33.20 Serous retinal detachment, unspecified eye; Q87.40 Marfan syndrome, unspecified; Z68.1 Body mass index [BMI] 19.9 or less, adult; E46 Unspecified protein-calorie malnutrition; I62.03 Nontraumatic chronic subdural hemorrhage; F41.9 Anxiety disorder, unspecified; H54.42 Blindness, left eye, normal vision right eye; I08.0 Rheumatic disorders of both mitral and aortic valves; I10 Essential (primary) hypertension; I77.819 Aortic ectasia, unspecified site; R13.10 Dysphagia, unspecified; R79.1 Abnormal coagulation profile; Z79.01 Long term (current) use of anticoagulants; Z82.49 Family history of ischemic heart disease and other diseases of the circulatory system; Z83.3 Family history of diabetes mellitus; Z95.2 Presence of prosthetic heart valve; Z79.899 Other long term (current) drug therapy; Z98.890 Other specified postprocedural states; Z90.49 Acquired absence of other specified parts of digestive tract; Z79.82 Long term (current) use of aspirin
CPT/HCPCS: 36415; 70450; 71010; 74020; 80048; 80053; 81001; 83605; 83735; 83880; 84484; 85007; 85027; 85610; 85730; 86850; 86900; 86901; 86927; 87086; 87641; 87804; 93005; 93306; 96360; C1713; G0481; J0690; J1100; J1650; J2060; J2270; J2405; J2704; J2710; J3010; J3430; J3490; J7030; J7120; P9017; 92610; 97110; 97116; 97530; 97535; 99285-25

== ENCOUNTER → 2016-08-18 | Outpatient (CLI) | payer SELFPAY ==
[~2016-08-18] MED LIST: LEVE500T56 PO; METO25TA9 PO; WARF5TAB PO
--- NOTE | 2016-08-18 09:05 | KCIC ---
PROCEDURE CT head without contrast. HISTORY Subdural hematoma follow up. TECHNIQUE CT of the head was performed without intravenous contrast. One or more of the following individualized dose reduction techniques were utilized for this examination: 1. Automated exposure control; 2. Adjustment of the mA and/or kV according to patient size; 3. Use of iterative reconstruction technique. COMPARISON 07/13/2016. FINDINGS Bifrontal nela holes are again noted. Bifrontal subdural collections have resolved or almost completely resolved. They are now less than 3 millimeters in thickness on the left greater than right. No hyperattenuating material is seen. Sanchez-white differentiation is preserved. The ventricles are normal in size and position. There is no midline shift. There are changes of bilateral cataract surgery. The temporal bones and paranasal sinuses are unremarkable. IMPRESSION - The bifrontal subdural collections have mostly resolved. The subdural spaces now within normal limits. Electronically signed by: Bob Rivers (Aug 18, 2016 09:03:38)
== END | disposition home or self-care (01) ==
LOC: KCIC CT 07:49
PROVIDERS: ATTEND Neurological Surgery
DX: I62.00 Nontraumatic subdural hemorrhage, unspecified (principal)
CPT/HCPCS: 70450

== ENCOUNTER → 2017-11-12 | Outpatient (CLI) | payer OTHER, MEDICAID ==
[~2017-11-12] MED LIST changes: +CONTRAST GIVEN. MC; -LEVE500T56 PO; -METO25TA9 PO; -WARF5TAB PO
[2017-11-12] MEDS: IOHEXOL 300 MG/ML 100ML VIAL. IV (09:33)
== END | disposition home or self-care (01) ==
LOC: CT 09:21
DX: K76.89 Other specified diseases of liver (principal); I70.0 Atherosclerosis of aorta; I10 Essential (primary) hypertension; Z79.01 Long term (current) use of anticoagulants
CPT/HCPCS: 71275; 74175; Q9967

== ENCOUNTER → 2020-02-15 | Outpatient (CLI) | payer MEDICAID ==
[~2020-02-15] MED LIST changes: -CONTRAST GIVEN. MC; +LEVE500T56 PO; +METO-239 PO; +WARF5TAB2 PO
--- NOTE | 2020-02-15 16:55 | CARD ---
MR#: [id number] Date of Study: 02/15/2020 Ordering Physician: GUILLE SALVADOR, Referring Physician: GUILLE SALVADOR, Tech: Bell Mars LENORA APPROVED REPORT EXAM: Two-dimensional and M-mode echocardiogram with Doppler and color Doppler. Other Information Quality : Good INDICATION Aortic Valve Disease Mitral Valve Disease Marphan Syndrome Surgery/Intervention Status/Post Aortic Valve Replacement: Mechanical Date: 2005 Status/Post Mitral Valve Replacement: Mechanical Type: [employer] Date: 2004 2D DIMENSIONS RVDd2.3 (2.9-3.5cm)Left Atrium(2D)5.6 (1.6-4.0cm) IVSd1.3 (0.7-1.1cm)Aortic Root(2D)2.8 (2.0-3.7cm) LVDd4.9 (3.9-5.9cm)LVOT Diameter2.2 (1.8-2.4cm) PWd1.1 (0.7-1.1cm)LVDs3.5 (2.5-4.0cm) FS (%) 28.2 %SV60.4 ml LVEF(%)54.0 (>50%) Aortic Valve AoV Peak Montrell.262.3cm/sAoV VTI47.7cm AO Peak GR.27.5mmHgLVOT Peak Montrell.139.2cm/s AO Mean GR.14mmHgAVA (VMAX)2.05cm2 OSCAR (VTI)2.20cm2 Mitral Valve MV E Oilejidx062.8cm/sMV E Peak Gr.8mmHg MV DECEL [id number] A Vujejnhp390.0cm/s MV E Mean Gr.5mmHgE/A Ratio0.9 Tricuspid Valve TR P. [id number]/sRAP [id number] TR Peak Gr.42flUzTABI01fvIt LEFT VENTRICLE The left ventricle is normal size. There is mild concentric left ventricular hypertrophy. The left ve ntricular systolic function is normal and the ejection fraction is within normal range. The Ejection Fraction is 55%. Septal motion consistent with post-operative state. Otherwise, grossly normal wall m otion. Transmitral Doppler flow pattern is Grade I-abnormal relaxation pattern. RIGHT VENTRICLE The right ventricle is mildly dilated. The right ventricular systolic function is normal. ATRIA The left atrium is severely dilated. The right atrium is mildly dilated. The interatrial septum is in tact with no evidence for an atrial septal defect or patent foramen ovale as noted on 2-D or Doppler imaging. AORTIC VALVE Doppler and Color Flow revealed trace aortic regurgitation. Calculated aortic valve area is 2.2 cm2 w ith maximum pressure gradient of 28 mmHg and mean pressure gradient of 14 mmHg. Mechanical aortic odilia ve is present. MITRAL VALVE There is no evidence of mitral valve prolapse. Calculated mitral valve area is 2.5 cm2 with maximum p ressure gradient of 8 mmHg and mean pressure gradient of 5 mmHg. Doppler and Color-flow revealed trac e mitral regurgitation. There is a bi-leaflet ([employer]) mechanical prosthesis of the mitral valve. TRICUSPID VALVE The tricuspid valve is normal in structure and function. Doppler and Color Flow revealed physiologica l tricuspid regurgitation. The PA pressure was estimated at 26 mmHg. There is no tricuspid valve sten osis. PULMONIC VALVE The pulmonic valve is not well visualized. Doppler and Color Flow revealed trace pulmonic valvular re gurgitation. There is no pulmonic valvular stenosis. GREAT VESSELS The aortic root is normal in size. The ascending aorta is normal in size. The IVC is normal in size a nd collapses >50% with inspiration. PERICARDIAL EFFUSION There is no evidence of significant pericardial effusion. Critical Notification Critical Value: No <Conclusion> The left ventricular systolic function is normal and the ejection fraction is within normal range. Th e Ejection Fraction is 55%. Septal motion consistent with post-operative state. Otherwise, grossly normal wall motion. Mechanical aortic valve is present. Calculated aortic valve area is 2.2 cm2 with maximum pressure gradient of 28 mmHg and mean pressure g radient of 14 mmHg. There is a bi-leaflet ([employer]) mechanical prosthesis of the mitral valve. Calculated mitral valve area is 2.5 cm2 with maximum pressure gradient of 8 mmHg and mean pressure gr adient of 5 mmHg. Signed by : Guille Salvador, Electronically Approved : 02/15/2020 16:55:42
== END | disposition home or self-care (01) ==
LOC: ECHO 13:15
PROVIDERS: ATTEND Internal Medicine Cardiovascular Disease
DX: I07.1 Rheumatic tricuspid insufficiency (principal); Z95.2 Presence of prosthetic heart valve
CPT/HCPCS: 93306